=== PATIENT | female | born 1935 | race Caucasian/White ===

== ENCOUNTER 2016-03-14 16:32 | Emergency (ER) | payer OTHER, MEDICARE ==
[~2016-03-14] VITALS: Ht 162.6 cm; Wt 95.4 kg
[~2016-03-14 16:32] MED LIST: ALUMSUS2 PO; CALCTAB5 PO; CLOP1TAB15 PO; CRS/10 PO; GLIP-199 PO; INSDGI SC; LEVO50TA6 PO; METO50TA7 PO; NVLGI SC; OXYC5TAB PO; PHENERGAN 25 MG/ML IM; TRAM-10 PO
--- NOTE | 2016-03-14 16:50 | EMERGENCY ROOM VISIT NOTE ---
History Report prepared by Jak: Rosanna Rebolledo Under the Supervision of: Dr. Lynda Whitaker M.D. First contact with patient: 16:33 Chief Complaint: BACK PAIN Stated Complaint: BACK PAIN History of Present Illness The patient is a 80 year old female who presents to the Emergency Room with complaints of worsening back pain for the past week. She states that her pain started in her left leg and quickly moved up into the left side of her back. She describes her pain as spasms. Five days ago she saw her PCP, Dr. Contreras, for her symptoms. He prescribed Tramadol, Flexeril, and Prednisone. She states that these medications have not been helping. She has been using a walker for the past few days to help her get around because it has become more difficult to move. Movement exacerbates her pain. She notes some shortness of breath with exertion. The patient was brought to the ED by ambulance. She received morphine en route which helped to alleviate some of her pain. She denies any urinary incontinence or cough. She denies any recent injury, trauma, or heavy lifting. Source of History: patient, EMS Onset: 1 week ago Position: back (left sided) Quality: other (spasms) Timing: worsening Modifying Factors (Worsening): movement Modifying Factors (Relieving): narcotics (morphine) Associated Symptoms: + SOB, No cough, No urinary symptoms Review of Systems See HPI for pertinent positives & negatives. A total of 10 systems reviewed and were otherwise negative. Past Medical & Surgical Medical Problems: (1) Atrial Fibrillation (2) Congestive Heart Failure Nos (3) Heart Disease Nos (4) Hypertension Nos (5) Hypothyroidism Nos (6) Nausea With Vomiting (7) Syncope And Collapse Family History Blood clots Diabetes mellitus Hypertension Kidney stones Social History Smoking Status: Unknown if Ever Smoked Marital Status: Occupation Status: unemployed Current/Historical Medications Scheduled Bimatoprost (Lumigan), 1 DROP OPB HS Cholecalciferol (Vitamin D3), 2,000 INTER.UNIT PO DAILY Clopidogrel Bisulfate (Clopidogrel), 75 MG PO DAILY Glipizide (Glipizide ER), 10 MG PO BIDM Insulin Aspart (Novolog), 1 DOSE SC BID Insulin Human NPH (Novolin N), 15-20 UNITS SC HS Levothyroxine Sodium (Levothyroxine Sodium), 50 MCG PO DAILY Metoprolol Succinate (Toprol Xl), 50 MG PO DAILY Prednisone (Prednisone), 10 MG PO UD Rosuvastatin Calcium (Rosuvastatin Calcium), 10 MG PO HS Scheduled PRN Acetaminophen (Tylenol), 500 MG PO UD PRN for Pain Cyclobenzaprine HCl (Cyclobenzaprine HCl), 5 MG PO TID PRN for Muscle Spasm Nitroglycerin (Nitrostat), 0.4 MG UT UD PRN for Chest Pain Tramadol HCl (Tramadol HCl), 50 MG PO TID PRN for Pain Allergies Coded Allergies: Iodine (Verified Allergy, Intermediate, ITCHING, 04/16/09) Lisinopril (Verified Allergy, Unknown, 04/16/09) Ondansetron (Verified Allergy, Unknown, "vomiting", 08/12/13) Sulfa Antibiotics (Verified Allergy, Unknown, ITCHING, 08/12/15) MD STATES LISINOPRIL & IODINE ALLERGIES, ER STATES IODINE & SULFA--PT TOO LETHARGIC TO VERIFY Physical Exam Vital Signs Date Time Temp Pulse Resp B/P Pulse Ox O2 Delivery O2 Flow Rate FiO2 03/14/16 22:27 72 16 141/80 94 Room Air 03/14/16 19:22 59 18 137/64 93 Room Air 03/14/16 18:07 62 03/14/16 17:02 37.4 75 18 151/84 94 Room Air Physical Exam Vital signs reviewed. General: Well-appearing 80 year old female, in no significant distress. HEENT: No scleral icterus, PERRLA, neck supple. Atraumatic. Cardiovascular: Regular rate and rhythm, no extra sounds. Pulmonary: Clear to auscultation bilaterally, normal work of breathing. Abdomen: Soft, nontender, nondistended, positive bowel sounds. Musculoskeletal: Atraumatic, no peripheral edema. Tender to palpation of the left upper back. No crepitus or ecchymosis appreciated. Neurologic: Patient awake alert and oriented x 3, full strength in all 4 extremities. Cranial nerves 2 through 12 grossly intact. Skin: Warm, dry, no rash Medical Decision & Procedures ER Provider Diagnostic Interpretation: Radiology results as stated below per my review and radiologist interpretation: THORACIC SPINE 3 VIEWS HISTORY: Left back pain COMPARISON: Abdomen and pelvis CT 08/12/2015. Chest CT 01/27/2015.. FINDINGS: Old moderate compression deformity at T7, T12 and L1. These remain unchanged. No new compression fractures identified. Paraspinal soft tissues are unremarkable. The bones are osteopenic. No subluxation. IMPRESSION: No change in the old compression fractures at T7, T12, and L1. No acute fractures or subluxation within the thoracic spine. Electronically signed by: Ridge Cabrera M.D. 03/14/2016 7:21 PM CHEST 1 VW FRONT-NOT PORTABLE HISTORY: left back pain COMPARISON: Chest 08/12/2015. FINDINGS: The heart remains enlarged. There is mild central pulmonary vascular congestion without overt edema. No pneumothorax. No pleural effusions. No new focal lung consolidations. There are poststernotomy changes and a mitral valve ring. IMPRESSION: Cardiomegaly with mild central pulmonary vascular congestion. Electronically signed by: Ridge Cabrera M.D. 03/14/2016 7:37 PM Laboratory Results 03/14/16 17:35 Red Blood Count 4.95, Mean Corpuscular Volume 89.9, Mean Corpuscular Hemoglobin 30.3, Mean Corpuscular Hemoglobin Concent 33.7, Mean Platelet Volume 9.9, Neutrophils (%) (Auto) 91.6, Lymphocytes (%) (Auto) 6.0, Monocytes (%) (Auto) 2.2, Eosinophils (%) (Auto) 0.0, Basophils (%) (Auto) 0.0, Neutrophils # (Auto) 4.62, Lymphocytes # (Auto) 0.30, Monocytes # (Auto) 0.11, Eosinophils # (Auto) 0.00, Basophils # (Auto) 0.00 03/14/16 17:35 Test 03/14/16 17:35 03/14/16 19:19 White Blood Count 5.04 K/uL (4.8-10.8) Red Blood Count 4.95 M/uL (4.2-5.4) Hemoglobin 15.0 g/dL (12.0-16.0) Hematocrit 44.5 % (37-47) Mean Corpuscular Volume 89.9 fL (80-100) Mean Corpuscular Hemoglobin 30.3 pg (25-34) Mean Corpuscular Hemoglobin Concent 33.7 g/dl (32-36) Platelet Count 247 K/uL (130-400) Mean Platelet Volume 9.9 fL (7.4-10.4) Neutrophils (%) (Auto) 91.6 % Lymphocytes (%) (Auto) 6.0 % Monocytes (%) (Auto) 2.2 % Eosinophils (%) (Auto) 0.0 % Basophils (%) (Auto) 0.0 % Neutrophils # (Auto) 4.62 K/uL (1.4-6.5) Lymphocytes # (Auto) 0.30 K/uL (1.2-3.4) Monocytes # (Auto) 0.11 K/uL (0.11-0.59) Eosinophils # (Auto) 0.00 K/uL (0-0.5) Basophils # (Auto) 0.00 K/uL (0-0.2) RDW Standard Deviation 46.7 fL (36.4-46.3) RDW Coefficient of Variation 14.3 % (11.5-14.5) Immature Granulocyte % (Auto) 0.2 % Immature Granulocyte # (Auto) 0.01 K/uL (0.00-0.02) Anion Gap 11.0 mmol/L (3-11) Est Creatinine Clear Calc Drug Dose 40.5 ml/min Estimated GFR () 48.7 Estimated GFR (Non- 42.1 BUN/Creatinine Ratio 23.1 (10-20) Calcium Level 9.1 mg/dl (8.5-10.1) Total Bilirubin 0.5 mg/dl (0.2-1) Direct Bilirubin 0.2 mg/dl (0-0.2) Aspartate Amino Transf (AST/SGOT) 36 U/L (15-37) Alanine Aminotransferase (ALT/SGPT) 24 U/L (12-78) Alkaline Phosphatase 87 U/L (45-117) Total Creatine Kinase 43 U/L (26-192) Creatine Kinase MB 1.1 ng/ml (0.5-3.6) Creatine Kinase MB Ratio 2.6 (0-3.0) Troponin I < 0.015 ng/ml (0-0.045) Total Protein 7.4 gm/dl (6.4-8.2) Albumin 3.0 gm/dl (3.4-5.0) Lipase 156 U/L (73-393) Urine Color YELLOW Urine Appearance CLEAR (CLEAR) Urine pH 5.0 (4.5-7.5) Urine Specific [place] 1.024 (1.000-1.030) Urine Protein NEG (NEG) Urine Glucose (UA) NEG (NEG) Urine Ketones NEG (NEG) Urine Occult Blood NEG (NEG) Urine Nitrite NEG (NEG) Urine Bilirubin NEG (NEG) Urine Urobilinogen NEG (NEG) Urine Leukocyte Esterase NEG (NEG) Laboratory results per my review. ECG Indication: back/shoulder pain Rate (beats per minute): 65 Rhythm: normal sinus Findings: T-wave inversion (Anterolateral), no ectopy Comparison ECG Date: 08/12/15 Change: T-wave inversions in the inferior leads have resolved, ST abnormalities in the anterolateral leads have resolved, T-wave inversions in the anterolateral leads persists. ED Course 163: Past medical records reviewed. The patient was evaluated in room A4B. A complete history and physical examination was performed. 1926: I reassessed the patient at this time. She is feeling better and resting comfortably. I discussed the results and treatment plan with the patient. I answered all pertaining questions that she had. She expressed understanding and verbalized agreement. The patient will be transferred to a rehab facility for further management. 2129: The patient has been accepted to [facility] for further management. Medical Decision Differential diagnoses includes muscular strain, pneumonia, PE, fractured rib, pleural effusion, thoracic radiculopathy. This pt was evaluated and appeared to be in no distress. IV access was obtained and lab work was drawn. Pt was placed on the director of cardiac cath lab. XR of thoracic spine reveals chronic compression fractures. CXR is c/w vascular congestion, although pt was unable to sit up for films. Pt was felt in need of rehab for mobility and was referred to [facility] and accepted. Pt was transferred for further care. Impression Primary Impression: Thoracic compression fracture Additional Impression: Upper back pain on left side Scribe Attestation The scribe's documentation has been prepared under my direction and personally reviewed by me in its entirety. I confirm that the note above accurately reflects all work, treatment, procedures, and medical decision making performed by me. Departure Information Dispostion Rehab Inpatient Facility Referrals Mago Contreras M.D. (MEDICAL) (PCP) Patient Instructions A Signature Page, My [facility]
[2016-03-14 17:02] VITALS: TEMP 37.4; Ht 162.6 cm; Wt 95.4 kg
[2016-03-14 17:51] LABS: COMPLETE YES; HEMATOCRIT 44.5 % (37-47); IG% 0.2 %; MEAN CELL VOLUME 89.9 fL (80-100); MEAN CORPUSCULAR HEMOGLOBIN 30.3 pg (25-34); MEAN CORPUSCULAR HGB CONC 33.7 g/dl (32-36); MEAN PLATELET VOLUME 9.9 fL (7.4-10.4); MONO % 2.2 %; NEUT % 91.6 %; PLATELET COUNT 247 K/uL (130-400); RED BLOOD COUNT 4.95 M/uL (4.2-5.4); WHITE BLOOD COUNT 5.04 K/uL (4.8-10.8)
[2016-03-14] MEDS ORDERED: PRED10TA PO (17:57)
[2016-03-14] MEDS ORDERED: NVLG SC (17:57)
[2016-03-14] MEDS ORDERED: ROSU10TA35 PO (17:57)
[2016-03-14] MEDS ORDERED: GLCSR10 PO (17:57)
[2016-03-14] MEDS ORDERED: PLV75 PO (17:57)
[2016-03-14] MEDS ORDERED: FLX/5 PO (17:57)
[2016-03-14] MEDS ORDERED: METO-217 PO (17:57)
[2016-03-14] MEDS ORDERED: NVLNI SC (17:57)
[2016-03-14] MEDS ORDERED: ULT50 PO (18:01)
[2016-03-14] MEDS ORDERED: ACET-1256 PO (18:01)
[2016-03-14] MEDS ORDERED: CHOL2000 PO (18:01)
[2016-03-14 18:10] LABS: ALT/SGPT 24 U/L (12-78); BLOOD UREA NITROGEN 28 mg/dl (7-18); BUN/CREATININE RATIO 23.1 (10-20); CALCIUM 9.1 mg/dl (8.5-10.1); CARBON DIOXIDE 22 mmol/L (21-32); CHLORIDE 109 mmol/L (98-107); GLUCOSE 162 mg/dl (70-99); POTASSIUM 4.6 mmol/L (3.5-5.1); SODIUM 142 mmol/L (136-145)
[2016-03-14 18:15] LABS: ALKALINE PHOSPHATASE 87 U/L (45-117); AST/SGOT 36 U/L (15-37); CKMB/CK RATIO 2.6 (0-3.0)
[2016-03-14] MEDS ORDERED: BIMA0.01 OPB (19:07)
[2016-03-14] MEDS ORDERED: NITR0.4S UT (19:11)
--- NOTE | 2016-03-14 19:23 | DIAGNOSTIC IMAGING REPORT ---
THORACIC SPINE 3 VIEWS HISTORY: Left back pain COMPARISON: Abdomen and pelvis CT 08/12/2015. Chest CT 01/27/2015.. FINDINGS: Old moderate compression deformity at T7, T12 and L1. These remain unchanged. No new compression fractures identified. Paraspinal soft tissues are unremarkable. The bones are osteopenic. No subluxation. IMPRESSION: No change in the old compression fractures at T7, T12, and L1. No acute fractures or subluxation within the thoracic spine. Electronically signed by: Ridge Cabrera M.D. 03/14/2016 7:21 PM
--- NOTE | 2016-03-14 19:38 | DIAGNOSTIC IMAGING REPORT ---
CHEST 1 VW FRONT-NOT PORTABLE HISTORY: left back pain COMPARISON: Chest 08/12/2015. FINDINGS: The heart remains enlarged. There is mild central pulmonary vascular congestion without overt edema. No pneumothorax. No pleural effusions. No new focal lung consolidations. There are poststernotomy changes and a mitral valve ring. IMPRESSION: Cardiomegaly with mild central pulmonary vascular congestion. Electronically signed by: Ridge Cabrera M.D. 03/14/2016 7:37 PM
[2016-03-14 19:43] LABS: URINE APPEARANCE CLEAR (CLEAR); URINE BILIRUBIN NEG (NEG); URINE COLOR YELLOW; URINE NITRITE NEG (NEG); URINE SPECIFIC GRAVITY 1.024 (1.000-1.030); UROBILINOGEN NEG (NEG); ZZURINE CULT IF INDIC CATH NO
[2016-03-14 19:57] LABS: MANUAL MICROSCOPIC REQUIRED? NO; REVIEW REQ? NO
[2016-03-14 22:27] VITALS: BP 141/80; PULSE 72; O2SAT 94
[2016-05-09] MEDS ORDERED: OXYC-57 PO (10:13)
[2016-05-09] MEDS ORDERED: CMD5 PO (12:02)
[2016-05-10] MEDS ORDERED: PANT40TA PO (12:55)
[2016-05-10] MEDS ORDERED: SENN8.6T7 PO (13:15)
== END 2016-03-14 23:00 ==
LOC: EDBD 16:32 → C.EDA 16:33
DX: M48.54XA Collapsed vertebra, not elsewhere classified, thoracic region, initial encounter for fracture (principal); I48.91 Unspecified atrial fibrillation; I50.9 Heart failure, unspecified; I10 Essential (primary) hypertension; E03.9 Hypothyroidism, unspecified; Z84.1 Family history of disorders of kidney and ureter; Z83.3 Family history of diabetes mellitus; Z79.4 Long term (current) use of insulin

== ENCOUNTER 2016-05-04 08:26 | Inpatient (IN) | payer OTHER, MEDICARE ==
[~2016-05-04] VITALS: Ht 157.5 cm; Wt 88.6 kg
[2016-05-04] VITALS (12 sets, daily range): BP systolic 95–140; BP diastolic 51–81; PULSE 76–108; TEMP 36.7–36.9; O2SAT 85–100; Ht 157.5 cm; Wt 88.6 kg
[~2016-05-04 08:26] MED LIST changes: +ACET-1256 PO; -ALUMSUS2 PO; +BIMA0.01 OPB; -CALCTAB5 PO; +CEFAZOLIN 2000 MG/60 ML D5W IV SCH; +CHOL2000 PO; -CLOP1TAB15 PO; -CRS/10 PO; +FLX/5 PO; +GLCSR10 PO; -GLIP-199 PO; -INSDGI SC; +METO-217 PO; -METO50TA7 PO; +NITR0.4S UT; +NVLG SC; -NVLGI SC; +NVLNI SC; -OXYC5TAB PO; -PHENERGAN 25 MG/ML IM; +PLV75 PO; +PRED10TA PO; +ROSU10TA24 PO; -TRAM-10 PO; +ULT50 PO
[2016-05-04] MEDS ORDERED: DILTIAZEM BOLUS / DRIP IV STA ×2 (08:32→13:50)
[2016-05-04] MEDS ORDERED: NYSTATIN POWDER 15GM BTL EXT STA (08:32)
[2016-05-04] MEDS ORDERED: MoRPHine SULFATE 10 MG/ML CARP/VIAL IV STA (08:32)
[2016-05-04] MEDS ORDERED: ONDANSETRON INJ 2 MG/ML 2 ML VIAL IV STA (08:32)
[2016-05-04] MEDS ORDERED: DILTIAZEM HCL 5 MG/ML 5 ML VIAL IV STA ×2 (08:32)
[2016-05-04] MEDS ORDERED: SODIUM CHLORIDE 0.9% 500ML 500 ML IV STA (08:32)
[2016-05-04] MEDS ORDERED: HYDROmorphone INJ 1 MG/ML SYR ONE (08:41)
[2016-05-04] MEDS ORDERED: OPTIRAY 320 IV PRN (08:45)
[2016-05-04] MEDS ORDERED: HYDROmorphone INJ 1 MG/ML SYR IM STA ×2 (08:48→08:56)
[2016-05-04] MEDS ORDERED: DILTIAZEM HCL INJ 125 MG in DEXTROSE 5% 100ML IV PRN ×2 (09:00→14:15)
[2016-05-04] MEDS ORDERED: NURSING VERBAL MED ORDER ONE ×2 (09:00→15:15)
[2016-05-04 09:08] LABS: ISTAT CREATININE 1.1 mg/dl (0.6-1.3); ISTAT HEMOGLOBIN 18.4 g/dl (12.0-16.0); ISTAT IONIZED CALCIUM 1.09 mmol/l (1.12-1.32)
[2016-05-04] MEDS ORDERED: HEPARIN SOD 5000 UNIT/0.5 ML CARP ONE (09:28)
[2016-05-04] MEDS ORDERED: HEPARIN IV BOLUS 8,000 UNIT in SYRINGE 0 ML IV SCH (09:30)
[2016-05-04] MEDS ORDERED: AMIODARONE 360MG / 200ML D5W ONE (09:31)
--- NOTE | 2016-05-04 09:35 | EMERGENCY ROOM VISIT NOTE ---
History Report prepared by Jak: Jose Ferguson Under the Supervision of: Dr. Jose A Lagos M.D. First contact with patient: 08:28 Stated Complaint: LF LEG PAIN/NUMBNESS History of Present Illness The patient is an 80 year old female who presents to the Emergency Room with complaints of persistent left leg pain that started this morning. The pain started as a cramping sensation, which is currently rated 10/10 in severity. The patient is also experiencing numbness and cannot use her leg. The patient came to the ED via ambulance from [place]. Per nursing staff, patient arrived in atrial fibrillation with RVR, and her left leg was cold and pulseless upon arrival. The patient has not taken her Plavix for the past several days because she has been feeling sick. The patient has a history of open heart surgery. Source of History: patient Onset: this morning Position: leg (left) Symptom Intensity: 10/10 Quality: cramping Timing: other (persistent) Associated Symptoms: + numbness Review of Systems See HPI for pertinent positives & negatives. A total of 10 systems reviewed and were otherwise negative. 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 (4) Status post partial colectomy (5) Status post partial mastectomy Family History Blood clots Diabetes mellitus Hypertension Kidney stones Social History Smoking Status: Former Smoker Marital Status: Occupation Status: unemployed Current/Historical Medications Scheduled Bimatoprost (Lumigan), 1 DROP OPB HS Cholecalciferol (Vitamin D3), 2,000 INTER.UNIT PO DAILY Clopidogrel Bisulfate (Clopidogrel), 75 MG PO DAILY Glipizide (Glipizide ER), 10 MG PO BIDM Insulin Aspart (Novolog), 1 DOSE SC BID Insulin Human NPH (Novolin N), 15-20 UNITS SC HS Levothyroxine Sodium (Levothyroxine Sodium), 50 MCG PO DAILY Metoprolol Succinate (Toprol Xl), 50 MG PO DAILY Rosuvastatin Calcium (Rosuvastatin Calcium), 10 MG PO HS Scheduled PRN Nitroglycerin (Nitrostat), 0.4 MG UT UD PRN for Chest Pain Allergies Coded Allergies: Iodine (Verified Allergy, Intermediate, ITCHING, 04/16/09) Lisinopril (Verified Allergy, Unknown, 04/16/09) Sulfa Antibiotics (Verified Allergy, Unknown, ITCHING, 08/12/15) MD STATES LISINOPRIL & IODINE ALLERGIES, ER STATES IODINE & SULFA--PT TOO LETHARGIC TO VERIFY Physical Exam Vital Signs Date Time Temp Pulse Resp B/P Pulse Ox O2 Delivery O2 Flow Rate FiO2 05/04/16 10:03 146 103/73 05/04/16 10:02 146 103/73 05/04/16 09:43 150 05/04/16 08:52 Nasal Cannula 2.0 05/04/16 08:43 94 Room Air 05/04/16 08:36 36.8 146 20 191/99 94 Room Air Physical Exam GENERAL: Patient is a healthy-appearing well-nourished HEAD: Normocephalic atraumatic EYES: Ocular movements intact pupils equal and react to light OROPHARYNX mucous membranes are moist no exudates present no erythema or edema present NECK: Supple no nuchal rigidity CHEST: Good equal expansion LUNGS: Clear and equal to auscultation CARDIAC: Normal S1 and S2 ABDOMEN: Soft nontender no guarding BACK: No CVA tenderness EXTREMITIES: Left lower extremity is pulseless. Cannot Doppler a pulse. Extremely painful to touch, Mottled all the way up to the hip. NEURO: Patient is following commands is answering questions appropriately. Alert and oriented x3 Cranial Nerves 2-12 grossly intact Medical Decision & Procedures ER Provider Diagnostic Interpretation: X-ray results as stated below per interpretation by me and the radiologist: CHEST ONE VIEW PORTABLE CLINICAL HISTORY: central line dyspnea COMPARISON STUDY: 03/14/2016 FINDINGS: Interval placement of a left internal jugular catheter with the tip in the superior vena cava. No evidence pneumothorax. Mild stable cardiomegaly. Prior median sternotomy. IMPRESSION: Central catheter in the superior vena cava. No evidence pneumothorax. Moderate stable cardiomegaly. Electronically signed by: Moe Rendon M.D. 05/04/2016 10:07 AM Dictated Date/Time: 05/04/2016 10:06 AM Laboratory Results Test 05/04/16 08:38 05/04/16 09:30 Bedside Hemoglobin 18.4 g/dl (12.0-16.0) Bedside Hematocrit 54 % (37-47) Bedside Sodium 137 mEq/L (135-144) Bedside Potassium 4.3 mEq/L (3.3-5.0) Bedside Chloride 101 mEq/L (101-112) Bedside Total CO2 18 mEq/l (24-31) Bedside Blood Urea Nitrogen 19 mg/dl (7-18) Bedside Creatinine 1.1 mg/dl (0.6-1.3) Bedside Glucose (other) 336 mg/dl (70-99) Bedside Ionized Calcium (Tray) 1.09 mmol/l (1.12-1.32) Total Bilirubin 0.9 mg/dl (0.2-1) Aspartate Amino Transf (AST/SGOT) 10 U/L (15-37) Alanine Aminotransferase (ALT/SGPT) 9 U/L (12-78) Alkaline Phosphatase 98 U/L (45-117) Total Creatine Kinase 40 U/L (26-192) Creatine Kinase MB 1.6 ng/ml (0.5-3.6) Creatine Kinase MB Ratio 4.0 (0-3.0) Total Protein 7.6 gm/dl (6.4-8.2) Albumin 3.1 gm/dl (3.4-5.0) Globulin 4.5 gm/dl (2.5-4.0) Albumin/Globulin Ratio 0.7 (0.9-2) Beta-Hydroxybutyric Acid 27.27 mg/dL (0.2-2.81) Labs reviewed by ED physician. Medications Administered Medications (Trade) Dose Ordered Sig/Fina Route Start Time Stop Time Status Last Admin Dose Admin Ondansetron HCl (Zofran Inj) 4 mg NOW STAT IV 05/04/16 08:32 05/04/16 08:39 DC 05/04/16 14:00 4 MG Diltiazem HCl (Cardizem Inj) 20 mg NOW STAT IV 05/04/16 08:32 05/04/16 08:39 DC 05/04/16 09:49 20 MG Hydromorphone HCl 1 mg 1 mg STK-MED ONCE .ROUTE 05/04/16 08:41 05/04/16 08:44 DC 05/04/16 08:48 1 MG Diltiazem HCl/ Dextrose (Cardizem Inj/D5 100ml) 125 ml @ 0 mls/hr Q0M PRN IV 05/04/16 09:00 05/04/16 13:51 DC 05/04/16 09:37 20 MLS/HR Heparin Sodium (Porcine) 56233 unit 10,000 unit STK-MED ONCE .ROUTE 05/04/16 09:28 05/04/16 09:30 DC 05/04/16 09:35 8,000 UNIT Cefazolin Sodium (Ancef 2000mg/60 ml D5W) 60 ml @ 100 mls/hr PREOP IV 05/04/16 06:00 05/04/16 18:00 DC 05/04/16 10:01 100 MLS/HR Gelatin (Surgifoam Sponge 100 (LARGE)) 2 ea STK-MED ONCE .ROUTE 05/04/16 09:52 05/04/16 09:54 DC 05/04/16 11:30 2 EA Thrombin (Recothrom Kit) 10,000 units STK-MED ONCE .ROUTE 05/04/16 09:53 05/04/16 09:55 DC 05/04/16 11:30 10,000 UNITS Cefazolin Sodium (Ancef Inj) 1,000 mg STK-MED ONCE .ROUTE 05/04/16 09:53 05/04/16 09:55 DC 05/04/16 11:30 1,000 MG Heparin Sodium (Porcine) (Heparin Iv Bolus) 10,000 unit STK-MED ONCE .ROUTE 05/04/16 09:53 05/04/16 09:55 DC 05/04/16 11:30 5,000 UNIT Procedure Central Venous Catheter Indication: access. Catheter type: arrow triple lumen. Location: left jugular. Verbal consent was obtained after the risks and benefits were explained, including but not limited to pneumothorax, hemothorax, vessel injury, bleeding, scarring, infection, pain, and bone/joint/nerve damage. At this time, the risks of the procedure are less than the risks of NOT performing the procedure. A time out was taken and the correct patient and site identified. The patient was placed in the supine position and the skin was prepped in the standard fashion with chlorhexidine and full sterile drapes applied. The proper landmarks were identified with ultrasound, anesthetized with 1% lidocaine without epinephrine, and the needle was inserted through the skin in the standard fashion. The needle was carefully advanced into blood vessel lumen under ultrasound guidance. The guidewire was placed uneventfully. The vessel is dilated and the catheter was placed. It was sutured into position. There was good blood return from all ports. The patient tolerated the procedure well and there were no complications. Post procedure x-ray was normal. ECG Indication: weakness Rate (beats per minute): 143 Rhythm: atrial fibrillation (RVR) Findings: PVC, no acute ischemic change, other (RVR) ED Course 0830: Past medical records reviewed. The patient was evaluated in room B4b. A complete history and physical examination was performed. 0832: Cardizem 30 mg IV, Cardizem 20 mg IV, Cardizem Bolus/Drip 1 ea IV, NSS 500 ml @ 999 mls/hr, Zofran 4 mg IV, Morphine Sulfate 6 mg IV, Nystatin 1 application EXT. 0845: Spoke with Isabela Degroot PA-C, [facility] Vascular Surgery. They will be in the see the patient. 0848: Heparin Sodium / Dextrose 1 ea, Dilaudid 1 mg IM. 0850: Central line placed. Please see procedural note above. 0900: Cardizem 125 mg / Dextrose 125 ml @ 0 mls/hr. 0905: Dr. Cook, [facility] Vascular Surgeon, is here to see the patient. Medical Decision Differential diagnosis: Etiologies such as metabolic, infection, hypo/hyperglycemia, electrolyte abnormalities, cardiac sources, intracerebral event, toxicologic, neurologic, as well as others were entertained. This is an 80-year-old female who presents emergency Department with a cold pulseless leg. The patient appears to be in A. fib with RVR and has not been taking her Plavix for the past several days. Nurses were unable to obtain an IV therefore a central line was placed in the emergency department. This was done as above. She was placed on a Cardizem drip with bolus. I did discuss the case with Dr. Cook who brought the patient to the operating room. Family was in agreement with the treatment plan. Consults Time Called: 0840 Consulting Physician: Isabela Degroot PA-C, [facility] Vascular Surgery. Returned Call: [phone]: Spoke with Isabela Degroot PA-C, Vascular Surgery. They will be in the see the patient. Impression Primary Impression: Ischemic leg Additional Impression: Atrial fibrillation with RVR Critical Care I have personally spent greater than 90 minutes of critical care time in the direct management of this patient. This includes bedside care, interpretation of diagnostic studies, and testing, discussion with consultants, patient, and family members, and other required patient management activities. This 90 minutes is in excess of all separately billable procedures. Scribe Attestation The scribe's documentation has been prepared under my direction and personally reviewed by me in its entirety. I confirm that the note above accurately reflects all work, treatment, procedures, and medical decision making performed by me. Departure Information Dispostion Being Evaluated By Surgeon Referrals Mago Contreras M.D. (MEDICAL) (PCP) Problem Qualifiers
--- NOTE | 2016-05-04 09:44 | History and Physical ---
History & Physical Date May 04, 2016. Chief Complaint Left leg pain History of Present Illness The patient is a 80 year old female who developed sudden onset left leg pain this morning. She claims her left leg is numb and can not move it. She has afib. She stopped plavix a few days ago due to not feeling well. No claudication prior to this. Vitals Vital Signs Past 12 Hours Date Time Temp Pulse Resp B/P Pulse Ox O2 Delivery O2 Flow Rate FiO2 05/04/16 08:52 Nasal Cannula 2.0 05/04/16 08:43 94 Room Air 05/04/16 08:36 36.8 146 20 191/99 94 Room Air Allergies Coded Allergies: Iodine (Verified Allergy, Intermediate, ITCHING, 04/16/09) Lisinopril (Verified Allergy, Unknown, 04/16/09) Sulfa Antibiotics (Verified Allergy, Unknown, ITCHING, 08/12/15) MD STATES LISINOPRIL & IODINE ALLERGIES, ER STATES IODINE & SULFA--PT TOO LETHARGIC TO VERIFY Ondansetron (Verified Adverse Reaction, Unknown, "vomiting", 05/04/16) Home Medications Scheduled Bimatoprost (Lumigan), 1 DROP OPB HS Cholecalciferol (Vitamin D3), 2,000 INTER.UNIT PO DAILY Clopidogrel Bisulfate (Clopidogrel), 75 MG PO DAILY Glipizide (Glipizide ER), 10 MG PO BIDM Insulin Aspart (Novolog), 1 DOSE SC BID Insulin Human NPH (Novolin N), 15-20 UNITS SC HS Levothyroxine Sodium (Levothyroxine Sodium), 50 MCG PO DAILY Metoprolol Succinate (Toprol Xl), 50 MG PO DAILY Prednisone (Prednisone), 10 MG PO UD Rosuvastatin Calcium (Rosuvastatin Calcium), 10 MG PO HS Scheduled PRN Acetaminophen (Tylenol), 500 MG PO UD PRN for Pain Cyclobenzaprine HCl (Cyclobenzaprine HCl), 5 MG PO TID PRN for Muscle Spasm Nitroglycerin (Nitrostat), 0.4 MG UT UD PRN for Chest Pain Tramadol HCl (Tramadol HCl), 50 MG PO TID PRN for Pain Problem List Medical Problems: (1) Atrial Fibrillation (2) Congestive Heart Failure Nos (3) Heart Disease Nos (4) Hypertension Nos (5) Hypothyroidism Nos (6) Nausea With Vomiting (7) Syncope And Collapse Surgical / Medical History Hx Cardiac Surgery: Yes (TRIPLE BYPASS PER PATIENT. ) Hx Abdominal Surgery: No Hx Cancer Surgery: Yes (L.BREAST LUMPECTOMY) Hx Thoracic Surgery: No Hx Orthopedic: No Hx Urinary Tract Surgery: No Past Medical/Surgical History: CABG, CHF, Heart Disease, Hypertension, Thyroid Disease Family History Blood clots Diabetes mellitus Hypertension Kidney stones Social History Smoking Status: Unknown if Ever Smoked Hx Tobacco Use In Past Year?: No Hx Alcohol Use - Type & Amnt: No Hx Substance Use -Type & Amnt: No Review of Systems Respiratory: No RAINEY, No PND, No cough, No cyanosis, No dyspnea, No hemoptysis, No orthopnea, No problem reported, No short of breath, No sputum production, No stridor, No wheezing Cardiovascular: No chest pain, No chest pressure, No chest tightness, No cyanosis, No diaphoresis, No edema, No intermittent claudication, No lightheadedness, No mumur, No orthopnea, No palpitations, No paroxysmal nocturnal dyspnea, No problem reported, No syncope Gastrointestinal: No abdominal pain, No anorexia, No appetite changes, No belching, No constipation, No diarrhea, No dysphagia, No flatulence, No food intolerance, No heartburn, No hematemesis, No hematochezia, No hemorrhoids, No indigestion, No nausea, No problem reported, No rectal bleeding, No stool changes, No vomiting Musculoskeletal: + problem reported (severe left leg pain) Neurologic: + problem reported (left leg numb and can not move) Psychiatric: No alcohol abuse, No anxiety, No auditory hallucinations, No depression, No drug abuse, No homicidal ideation, No mood changes, No problem reported, No suicidal ideation, No visual hallucinations Physical Exam Constitutional: General Apperance: heathly-appearing, well-nourished, well-developed Level of Distress: moderate distress Ambulation: limited ambulation Neck: supple Lungs: Auscultation: breath sounds normal Cardiovascular: Heart Auscultation: pertinent finding (afib with rapid rate) Peripheral Pulses: Femoral Pulse: normal on the left, normal on the right Posterior Tibialis Pulse: decreased on the right, absent on the left Dorsalis Pedis Pulse: decreased on the right, absent on the left Musculoskeletal: normal Extremities: Upper Right: no cyanosis, no edema, no varicosities, no palpable cord, no clubbing, no ulcers, no mottling Upper Left: no cyanosis, no edema, no varicosities, no palpable cord, no clubbing, no ulcers, no mottling Lower Left: mottling, pertinent finding (cold) Neurologic: Sensation: pertinent finding (left leg numb and motionless) Assessment and Plan Imp: Left leg embolism Afib with rapid response Plan: Recommend surgical intervention. I have discussed the risks options and benefits of the procedure with the patient. The patient understands the risks options and benefits and agrees to the procedure.
[2016-05-04] MEDS ORDERED: LIDOCAINE HCL 1% 20 ML VIAL ONE (09:52)
[2016-05-04] MEDS ORDERED: FENTANYL CITRATE INJ 50 MCG/1 ML 2 ML VIAL ONE (09:52)
[2016-05-04] MEDS ORDERED: GELATIN SPONGE SZ 100 ONE (09:52)
[2016-05-04] MEDS ORDERED: BUPIVACAINE/EPINEPHRINE 0.5% MPF 1:200,000 30 ML VIAL ONE (09:52)
[2016-05-04] MEDS ORDERED: THROMBIN 5000 UNITS KIT ONE (09:53)
[2016-05-04] MEDS ORDERED: PAPAVERINE HCL INJ 30 MG/ML 2 ML VIAL ONE (09:53)
[2016-05-04] MEDS ORDERED: HEPARIN SOD (PORCINE) 1000 UNIT/ML 10 ML VIAL ONE (09:53)
[2016-05-04] MEDS ORDERED: CEFAZOLIN SOD 1 GM VIAL ONE (09:53)
[2016-05-04 10:06] LABS: COMPLETE YES; EOS % 0.1 %; HEMATOCRIT 46.7 % (37-47); IG% 0.2 %; LYMPH ABS # 0.41 K/uL (1.2-3.4); MEAN CELL VOLUME 90.5 fL (80-100); MEAN CORPUSCULAR HEMOGLOBIN 31.6 pg (25-34); MEAN CORPUSCULAR HGB CONC 34.9 g/dl (32-36); MEAN PLATELET VOLUME 9.9 fL (7.4-10.4); MONO % 3.8 %; NEUT % 91.9 %; PLATELET COUNT 317 K/uL (130-400); RED BLOOD COUNT 5.16 M/uL (4.2-5.4); WHITE BLOOD COUNT 10.16 K/uL (4.8-10.8)
--- NOTE | 2016-05-04 10:08 | DIAGNOSTIC IMAGING REPORT ---
CHEST ONE VIEW PORTABLE CLINICAL HISTORY: central line dyspnea COMPARISON STUDY: 03/14/2016 FINDINGS: Interval placement of a left internal jugular catheter with the tip in the superior vena cava. No evidence pneumothorax. Mild stable cardiomegaly. Prior median sternotomy. IMPRESSION: Central catheter in the superior vena cava. No evidence pneumothorax. Moderate stable cardiomegaly. Electronically signed by: Moe Rendon M.D. 05/04/2016 10:07 AM Dictated Date/Time: 05/04/2016 10:06 AM
[2016-05-04 10:18] LABS: INR 1.2 (0.9-1.1); PARTIAL THROMBOPLASTIN RATIO 0.9; PROTHROMBIN TIME (PATIENT) 12.5 SECONDS (9.0-12.0)
[2016-05-04 10:30] LABS: ALT/SGPT 9 U/L (12-78); AST/SGOT 10 U/L (15-37); BLOOD UREA NITROGEN 18 mg/dl (7-18); BUN/CREATININE RATIO 13.1 (10-20); CALCIUM 9.3 mg/dl (8.5-10.1); CARBON DIOXIDE 19 mmol/L (21-32); CHLORIDE 102 mmol/L (98-107); GLUCOSE 319 mg/dl (70-99); SODIUM 137 mmol/L (136-145)
[2016-05-04] MEDS ORDERED: ATROPINE SULFATE 0.1 MG/ML 5ML SYR IV PRN (10:30)
[2016-05-04] MEDS ORDERED: EpHEDrine SULFATE INJ 50 MG/ML AMP IV PRN (10:30)
[2016-05-04] MEDS ORDERED: FENTANYL CITRATE INJ 50 MCG/1 ML 2 ML VIAL IV PRN (10:30)
[2016-05-04 10:36] LABS: ALB/GLOB RATIO 0.7 (0.9-2); ALKALINE PHOSPHATASE 98 U/L (45-117)
[2016-05-04 10:43] LABS: BETA-HYDROXYBUTYRATE 27.27 mg/dL (0.2-2.81)
[2016-05-04] MEDS ORDERED: NovoLIN-R INSULIN PER UNIT CHARGE ONE (11:05)
[2016-05-04] MEDS ORDERED: GLYCOPYRROLATE INJ 0.2 MG/ML VIAL ONE (11:12)
[2016-05-04] MEDS ORDERED: ROCURONIUM BROMIDE 10 MG/ML 5 ML VIAL ONE (11:12)
[2016-05-04] MEDS ORDERED: PROPOFOL IV EMULSION 10 MG/ML 20 ML VIAL IV ONE (11:12)
[2016-05-04] MEDS ORDERED: SUCCINYLCHOLINE CHLORIDE 20 MG/ML 10 ML VIAL IV ONE (11:12)
[2016-05-04] MEDS ORDERED: NEOSTIGMINE METHYLSULFATE 5 MG/5 ML SYR ONE (11:12)
[2016-05-04] MEDS ORDERED: LIDOCAINE HCL 2% 2 ML VIAL (20MG/ML) ONE (11:12)
[2016-05-04] MEDS ORDERED: METOPROLOL TARTRATE 1 MG/ML VIAL ONE (11:13)
[2016-05-04] MEDS ORDERED: PROMETHAZINE HCL INJ 12.5 MG in SODIUM CHLORIDE 0.9% 50ML 50 ML IV PRN (11:45)
[2016-05-04] MEDS ORDERED: GLUCOSE 10 TABS/TUBE PO PRN (11:45)
[2016-05-04] MEDS ORDERED: MoRPHine SULFATE 2 MG/ML CARP IV PRN ×2 (11:45→13:15)
[2016-05-04] MEDS ORDERED: DEXTROSE 50% 50 ML SYR IV PRN (11:45)
[2016-05-04] MEDS ORDERED: ACETAMINOPHEN 325 MG TAB PO PRN (11:45)
[2016-05-04] MEDS ORDERED: GLUCOSE 40% GEL 15 GM TUBE PO PRN (11:45)
[2016-05-04] MEDS ORDERED: OXYCODONE/ACETAMINOPHEN 5-325 TAB PO PRN (11:45)
[2016-05-04] MEDS ORDERED: GLUCAGON FOR INJ 1 MG VIAL SQ PRN (11:45)
[2016-05-04] MEDS ORDERED: NITROGLYCERIN 0.4 MG SL PER TAB CHARGE UT PRN (11:45)
--- NOTE | 2016-05-04 11:54 | [facility] Post Operative Brief Note ---
Immediate Operative Summary Operative Date May 04, 2016. Pre-Operative Diagnosis Embolism left leg Post-Operative Diagnosis Same Procedure(s) Performed Embolectomy left leg with patch angioplasty Surgeon alicia Ferry Operator Surgeon(s) none Estimated Blood Loss 100 Findings embolism at presser and shaper knitted goods bifurcation Specimens clot Anesthesia Gen Complication(s) None Disposition Recovery Room / PACU
--- NOTE | 2016-05-04 12:11 | OPERATIVE REPORT ---
DATE OF OPERATION: 05/04/2016 PREOPERATIVE DIAGNOSIS: Embolism left leg. POSTOPERATIVE DIAGNOSIS: Same. PROCEDURE: Embolectomy, left lower extremity with patch angioplasty. SURGEON: Dr. Cook. GUARD IMMIGRATION: None. ANESTHETIC: General endotracheal. PROCEDURE INDICATIONS: The patient is an 80-year-old female who has a history of atrial fibrillation. She developed sudden onset of left leg pain, paralysis and paresthesias this morning. She was seen in Emergency Room and found to have no flow to her leg was a mottled leg. Emergency surgery and possible intervention was recommended. She understood the risks, options, benefits and agreed to have this procedure. The patient was taken to the operating room and placed in supine position. After the groin was prepped and draped in a sterile manner an oblique incision was made below an area of redness from apparently a yeast infection in the folds of her skin. The incision was carried down through the deeper layers until the superficial femoral artery was identified. Dissection was carried upward to where the common femoral artery was identified. There was a good pulse in the common femoral but no pulse at the bifurcation. The patient had been heparinized prior to surgery. The common femoral was then clamped. Longitudinal arteriotomy was started on the distal common femoral artery and extended along the superficial femoral artery origin which had a fair amount of plaque. There was a clot seen right at the bifurcation. This was expressed. A #3 Kellen catheter was then passed down the leg. It went all the way to the foot. No further clot was removed. The same thing was done with the profunda and no further clot was noted. Using the bovine patch the arteriotomy was closed in the usual fashion using running 6-0 Prolene suture. Prior to completing the closure, backbleeding and forward bleeding was allowed to occur and the final few sutures were placed and securely tied. Clamps were then removed. Excellent flow was seen through this area. Adequate hemostasis was then noted. The wound was then closed in the usual fashion using running 2-0 Vicryl suture for the femoral sheath, 3-0 Vicryl for the subcutaneous layer and raudel for the skin. Sterile dressings were applied to the wound. The patient left the operating room in satisfactory condition and tolerated the procedure well. Heart rate which started at 150s was somewhat slower in the 120s but still has a rapid Afib. She will be transported to the Intensive Care Unit from the recovery room. I attest to the content of the Intraoperative Record and any orders documented therein. Any exceptions are noted below. [id number]
[2016-05-04 12:24] LABS: BASO % 0.1 %; BASO ABS # 0.01 K/uL (0-0.2); COMPLETE YES; HEMATOCRIT 42.1 % (37-47); IG% 0.2 %; LYMPH % 5.7 %; LYMPH ABS # 0.77 K/uL (1.2-3.4); MEAN CELL VOLUME 88.8 fL (80-100); MEAN CORPUSCULAR HEMOGLOBIN 30.8 pg (25-34); MEAN CORPUSCULAR HGB CONC 34.7 g/dl (32-36); MEAN PLATELET VOLUME 9.3 fL (7.4-10.4); MONO % 5.9 %; NEUT % 88.1 %; PLATELET COUNT 290 K/uL (130-400); RED BLOOD COUNT 4.74 M/uL (4.2-5.4); WHITE BLOOD COUNT 13.57 K/uL (4.8-10.8)
[2016-05-04 12:43] LABS: BLOOD UREA NITROGEN 19 mg/dl (7-18); BUN/CREATININE RATIO 13.2 (10-20); CALCIUM 8.4 mg/dl (8.5-10.1); CARBON DIOXIDE 19 mmol/L (21-32); CHLORIDE 102 mmol/L (98-107); GLUCOSE 259 mg/dl (70-99); POTASSIUM 4.3 mmol/L (3.5-5.1); SODIUM 135 mmol/L (136-145)
--- NOTE | 2016-05-04 12:44 | Anesthesiology Progress Note ---
Anesthesia Post Op Note Date & Time May 04, 2016 at 12:44 Vital Signs Pain Intensity: 0 Vital Signs Past 12 Hours Date Time Temp Pulse Resp B/P Pulse Ox O2 Delivery O2 Flow Rate FiO2 05/04/16 12:25 36.8 114 16 119/86 100 Nasal Cannula 2 05/04/16 12:15 113 16 125/84 100 Nasal Cannula 2 05/04/16 12:06 117 16 132/89 99 Mask 10 05/04/16 11:59 37.1 108 16 146/89 99 Mask 10 05/04/16 10:03 146 103/73 05/04/16 10:02 146 103/73 05/04/16 09:43 150 05/04/16 08:52 Nasal Cannula 2.0 05/04/16 08:43 94 Room Air 05/04/16 08:36 36.8 146 20 191/99 94 Room Air Notes Mental Status: alert / awake / arousable, participated in evaluation Pt Amnestic to Procedure: Yes Nausea / Vomiting: adequately controlled Pain: adequately controlled Airway Patency, RR, SpO2: stable & adequate BP & HR: stable & adequate Hydration State: stable & adequate Anesthetic Complications: no major complications apparent
[2016-05-04] MEDS ORDERED: MoRPHine SULFATE 4 MG/ML 1 ML CARP\\VIAL IV PRN ×2 (13:15→13:30)
[2016-05-04] MEDS: CEFAZOLIN IV 2,000 MG in DEXTROSE 5% 50ML 50 ML IV SCH ×2 (13:45→21:21)
[2016-05-04] MEDS ORDERED: ONDANSETRON INJ 2 MG/ML 2 ML VIAL ONE (13:53)
[2016-05-04] MEDS ORDERED: D5W AND 1/2NSS 1,000 ML IV SCH (14:00)
[2016-05-04] MEDS ORDERED: HEPARIN IV BOLUS 5,000 UNIT in SYRINGE 0 ML IV ONE (14:30)
[2016-05-04] MEDS: MAGNESIUM SULFATE 1GM / D5W 1 GM in PREMIXED IN D5W 100 ML IV SCH ×2 (14:54→16:29)
[2016-05-04] MEDS: HEPARIN 25,000 UNIT/500ML D5W 500 ML IV PRN (15:00)
[2016-05-04] MEDS ORDERED: ONDANSETRON INJ 2 MG/ML 2 ML VIAL IV PRN (15:15)
[2016-05-04] MEDS ORDERED: INSULIN HUMAN REGULAR SC SCH (16:00)
[2016-05-04] MEDS ORDERED: METOPROLOL TARTRATE 50 MG TAB PO STA (16:03)
[2016-05-04] MEDS ORDERED: WARFARIN SOD 5 MG TAB PO ONE (16:15)
--- NOTE | 2016-05-04 16:33 | Medical Consult ---
Consultation Date of Consultation: May 04, 2016. . Attending Physician: Hay Cook M.D. . Reason for Consultation: medical management . History of Present Illness 80 YO female followed by Dr. Contreras for Family Medicine. History of ischemic heart disease, remote history of AF, hypertension, severe UGI bleed due to duodenal ulcer, and other problems noted below. Developed acute onset of LLE pain this morning. Brought to ED. Found to be in AF with RVR; also noted to have LLE ischemia. Received IV diltiazem for RVR. Emergent Vascular Surgery consultation obtained. Embolectomy performed by Dr. Cook with good results. Admitted to ICU postoperatively. Doing well postoperatively. No chest pain. No cough or dyspnea. No vomiting. Postop pain well-controlled. Patient indicates that she has been experiencing nausea and anorexia for several days. No melena or hematochezia. She has not been taking most of her meds, including metoprolol, due to her GI symptoms. . Past Medical/Surgical History Chronic Medical Problems: (1) Atrial Fibrillation, history of Status: Chronic (3) Diabetes mellitus, type 2 Status: Chronic (5) History of breast cancer Status: Chronic (6) History of rectal cancer Status: Chronic (7) History of upper gastrointestinal bleeding Permanent Comment: duodenal ulcer 2013 Status: Chronic (8) Hypertension Nos Status: Chronic (9) Hypothyroidism Status: Chronic Surgical Problems: (1) Status post cardiac catheterization Status: Chronic (2) Status post colostomy Status: Chronic (3) Status post coronary artery bypass grafting Status: Chronic (4) Status post partial colectomy Status: Chronic (5) Status post partial mastectomy Status: Chronic . Family History Blood clots Diabetes mellitus Hypertension Kidney stones Social History Smoking Status: Never Smoker Marital Status: Occupation Status: unemployed Allergies Coded Allergies: Iodine (Verified Allergy, Intermediate, ITCHING, 04/16/09) Lisinopril (Verified Allergy, Unknown, 04/16/09) Sulfa Antibiotics (Verified Allergy, Unknown, ITCHING, 08/12/15) MD STATES LISINOPRIL & IODINE ALLERGIES, ER STATES IODINE & SULFA--PT TOO LETHARGIC TO VERIFY Home Medications Reported Home Medications Medications Dose Route/Sig Max Daily Dose Days Date Category Dose Instructions Vitamin D3 (Cholecalciferol) 2,000 Unit Cap 2,000 Inter.unit PO DAILY 03/14/16 Reported Clopidogrel (Clopidogrel Bisulfate) 75 Mg Tab 75 Mg PO DAILY 03/14/16 Reported Rosuvastatin Calcium 10 Mg Tab 10 Mg PO HS 03/14/16 Reported Glipizide ER (Glipizide) 10 Mg Tabcr 10 Mg PO BIDM 03/14/16 Reported TAKE THIS MEDICATION WITH BREAKFAST AND EVENING MEALS Novolin N (Insulin Human NPH) 100 Units/Ml Susp 15-20 Units SC HS 03/14/16 Reported Novolog (Insulin Aspart) 100 Units/Ml Inj 1 Dose SC BID 03/14/16 Reported COVERAGE DIRECTED BY SLIDING SCALE Toprol Xl (Metoprolol Succinate) 50 Mg Tabcr 50 Mg PO DAILY 03/14/16 Reported Levothyroxine Sodium 50 Mcg Tab 50 Mcg PO DAILY 08/12/15 Reported Nitrostat (Nitroglycerin) 0.4 Mg Sub 0.4 Mg UT UD PRN 08/12/[address] ONE TABLET UNDER THE TONGUE EVERY 5 MINUTES FOR UP TO 3 DOSES IF NEEDED FOR CHEST PAIN. Lumigan (Bimatoprost) 0.01 % Marli 1 Drop OPB HS 08/12/13 Reported Current Inpatient Medications Current Inpatient Medications Medications (Trade) Dose Ordered Sig/Fina Route Start Time Stop Time Status Last Admin Dose Admin Ioversol 125 ml 125 ml UD PRN IV 05/04/16 08:45 05/08/16 08:44 Cefazolin Sodium (Ancef 2000mg/60 ml D5W) 60 ml @ 100 mls/hr PREOP IV 05/04/16 06:00 05/04/16 18:00 05/04/16 10:01 100 MLS/HR Acetaminophen (Tylenol Tab) 650 mg Q4H PRN PO 05/04/16 11:45 06/03/16 11:44 Oxycodone/ Acetaminophen (Percocet 5-325mg Tab) `1-2 TABS FOR MODER... Q4H PRN PO 05/04/16 11:45 05/18/16 11:44 Morphine Sulfate 1 mg 1 mg Q2H PRN IV 05/04/16 11:45 05/18/16 11:44 Promethazine HCl 12.5 mg/Sodium Chloride 50.5 ml @ 202 mls/hr Q6H PRN IV 05/04/16 11:45 06/03/16 11:44 Pantoprazole Sodium 40 mg/ Syringe 10 ml @ 5 mls/min DAILY@11 IV 05/05/16 11:00 06/04/16 10:59 Cefazolin Sodium 2000 mg/Dextrose 60 ml @ 100 mls/hr Q8H IV 05/04/16 14:00 05/04/16 22:35 05/04/16 13:45 100 MLS/HR Dextrose/Sodium Chloride (D5W And 1/2nss) 1,000 ml @ 125 mls/hr Q8H IV 05/04/16 14:00 05/04/16 21:59 05/04/16 13:20 125 MLS/HR Insulin Human Regular (novoLIN-R) SLIDING SCALE IF C... ACHS SC 05/04/16 16:00 06/03/16 15:59 Glucose (Glucose 40% Gel) 15-30 GRAMS 15 GRAMS... UD PRN PO 05/04/16 11:45 06/03/16 11:44 Glucose (Glucose Chew Tab) 4-8 Tablets 4 Tabl... UD PRN PO 05/04/16 11:45 06/03/16 11:44 Dextrose (Dextrose 50% 50ML Syringe) 25-50ML OF 50% DW IV FOR... UD PRN IV 05/04/16 11:45 06/03/16 11:44 Glucagon (Glucagon Inj) 1 mg UD PRN SQ 05/04/16 11:45 06/03/16 11:44 Clopidogrel Bisulfate (plAVix TAB) 75 mg DAILY PO 05/05/16 09:00 06/04/16 08:59 Levothyroxine Sodium (Synthroid Tab) 50 mcg DAILYBB PO 05/05/16 06:00 06/04/16 05:59 Metoprolol Succinate (Toprol Xl Tab) 50 mg DAILY PO 05/05/16 09:00 06/04/16 08:59 Nitroglycerin (Nitrostat Tab) 0.4 mg UD PRN UT 05/04/16 11:45 06/03/16 11:44 Rosuvastatin Calcium (Crestor Tab) 10 mg HS PO 05/04/16 21:00 06/03/16 20:59 Bimatoprost (Lumigan 0.01%) 1 drops HS OPB 05/04/16 21:00 06/03/16 20:59 Cholecalciferol (Vitamin D Tab) 2,000 inter.unit DAILY PO 05/05/16 09:00 06/04/16 08:59 Nystatin (Mycostatin Powder) 1 appln DAILY EXT 05/05/16 09:00 06/04/16 08:59 Morphine Sulfate (MoRPHine SULFATE INJ) 2 mg Q2H PRN IV 05/04/16 13:15 05/18/16 13:14 Morphine Sulfate (MoRPHine SULFATE INJ) 4 mg Q2H PRN IV 05/04/16 13:15 05/18/16 13:14 Morphine Sulfate 3 mg 3 mg Q2H PRN IV 05/04/16 13:30 05/18/16 13:29 Diltiazem HCl 125 mg/Dextrose 125 ml @ 0 mls/hr Q0M PRN IV 05/04/16 14:15 06/03/16 14:14 05/04/16 14:55 15 MLS/HR Heparin Sodium/ Dextrose (Heparin 25,000 Unit/500ml D5W) 500 ml @ 1 mls/hr Q24H PRN IV 05/04/16 14:15 06/03/16 14:14 05/04/16 15:00 1 MLS/HR Ondansetron HCl (Zofran Inj) 4 mg Q8H PRN IV 05/04/16 15:15 06/03/16 15:14 Warfarin Sodium (Coumadin Tab) 5 mg DAILY@16 PO 05/05/16 16:00 06/04/16 15:59 Review of Systems As noted above. . Physical Exam Date Time Temp Pulse Resp B/P Pulse Ox O2 Delivery O2 Flow Rate FiO2 05/04/16 13:50 36.8 108 18 137/76 100 Nasal Cannula 2.0 108 05/04/16 12:25 36.8 114 16 119/86 100 Nasal Cannula 2 05/04/16 12:15 113 16 125/84 100 Nasal Cannula 2 05/04/16 12:06 117 16 132/89 99 Mask 10 05/04/16 11:59 37.1 108 16 146/89 99 Mask 10 05/04/16 10:03 146 103/73 05/04/16 10:02 146 103/73 05/04/16 09:43 150 05/04/16 08:52 Nasal Cannula 2.0 05/04/16 08:43 94 Room Air 05/04/16 08:36 36.8 146 20 191/99 94 Room Air General Appearance: no apparent distress Head: normocephalic, atraumatic Eyes: normal inspection, PERRL, EOMI, sclerae normal ENT: normal ENT inspection, hearing grossly normal Neck: supple, no adenopathy, thyroid normal, no JVD, trachea midline, + pertinent finding (left IJ) Respiratory/Chest: lungs clear, no respiratory distress, no accessory muscle use Cardiovascular: no gallop, no JVD, no murmur, + irregularly irregular, + pertinent finding (trace pretibial edema) Abdomen/GI: normal bowel sounds, non tender, soft, no organomegaly, + pertinent finding (colostomy) Extremities/Musculoskelatal: no calf tenderness, normal capillary refill (left toes 1-2 sec), + pedal edema (trace), + pertinent finding (pedal pulses diminished but palpable; left radial artery catheter) Neurologic/Psych: capacity planning analyst II-XII nml as tested (PERRL, EOMI), oriented x 3 Skin: normal color, warm/dry, no rash Lymphatic: no adenopathy Laboratory Results Last 24 Hours Test 05/04/16 08:38 05/04/16 09:30 05/04/16 12:07 05/04/16 12:18 Bedside Hemoglobin 18.4 g/dl Bedside Hematocrit 54 % Bedside Sodium 137 mEq/L Bedside Potassium 4.3 mEq/L Bedside Chloride 101 mEq/L Bedside Total CO2 18 mEq/l Anion Gap 23.0 mmol/L 16.0 mmol/L 14.0 mmol/L Bedside Blood Urea Nitrogen 19 mg/dl Bedside Creatinine 1.1 mg/dl Bedside Glucose (other) 336 mg/dl Bedside Ionized Calcium (Tray) 1.09 mmol/l White Blood Count 10.16 K/uL 13.57 K/uL Red Blood Count 5.16 M/uL 4.74 M/uL Hemoglobin 16.3 g/dL 14.6 g/dL Hematocrit 46.7 % 42.1 % Mean Corpuscular Volume 90.5 fL 88.8 fL Mean Corpuscular Hemoglobin 31.6 pg 30.8 pg Mean Corpuscular Hemoglobin Concent 34.9 g/dl 34.7 g/dl Platelet Count 317 K/uL 290 K/uL Mean Platelet Volume 9.9 fL 9.3 fL Neutrophils (%) (Auto) 91.9 % 88.1 % Lymphocytes (%) (Auto) 4.0 % 5.7 % Monocytes (%) (Auto) 3.8 % 5.9 % Eosinophils (%) (Auto) 0.1 % 0.0 % Basophils (%) (Auto) 0.0 % 0.1 % Neutrophils # (Auto) 9.33 K/uL 11.96 K/uL Lymphocytes # (Auto) 0.41 K/uL 0.77 K/uL Monocytes # (Auto) 0.39 K/uL 0.80 K/uL Eosinophils # (Auto) 0.01 K/uL 0.00 K/uL Basophils # (Auto) 0.00 K/uL 0.01 K/uL RDW Standard Deviation 47.6 fL 46.2 fL RDW Coefficient of Variation 14.3 % 14.1 % Immature Granulocyte % (Auto) 0.2 % 0.2 % Immature Granulocyte # (Auto) 0.02 K/uL 0.03 K/uL Prothrombin Time 12.5 SECONDS Prothromb Time International Ratio 1.2 Activated Partial Thromboplast Time 23.3 SECONDS Partial Thromboplastin Ratio 0.9 Sodium Level 137 mmol/L 135 mmol/L Potassium Level 4.0 mmol/L 4.3 mmol/L Chloride Level 102 mmol/L 102 mmol/L Carbon Dioxide Level 19 mmol/L 19 mmol/L Blood Urea Nitrogen 18 mg/dl 19 mg/dl Creatinine 1.40 mg/dl 1.40 mg/dl Estimated GFR () 40.5 40.5 Estimated GFR (Non- 34.9 34.9 BUN/Creatinine Ratio 13.1 13.2 Random Glucose 319 mg/dl 259 mg/dl Calcium Level 9.3 mg/dl 8.4 mg/dl Total Bilirubin 0.9 mg/dl Aspartate Amino Transf (AST/SGOT) 10 U/L Alanine Aminotransferase (ALT/SGPT) 9 U/L Alkaline Phosphatase 98 U/L Total Creatine Kinase 40 U/L Creatine Kinase MB 1.6 ng/ml Creatine Kinase MB Ratio 4.0 Troponin I 0.019 ng/ml 0.028 ng/ml Total Protein 7.6 gm/dl Albumin 3.1 gm/dl Globulin 4.5 gm/dl Albumin/Globulin Ratio 0.7 Beta-Hydroxybutyric Acid 27.27 mg/dL Bedside Glucose 250 mg/dl Magnesium Level 2.0 mg/dl Assessment & Plan LLE ISCHEMIA Probable cardioembolic event. Doing well after embolectomy. Started on IV heparin. ATRIAL FIBRILLATION Recurrent AF with RVR. Not taking metoprolol for several days due to GI symptoms. Rate now well-controlled. Management per Cardiology. CAD Management per Cardiology. HISTORY OF UGI BLEED Started on PPI for prophylaxis. NAUSEA / ANOREXIA Etiology uncertain. PPI as noted above. Monitor for signs of GI bleeding. Consider EGD prior to discharge if symptoms persist. DM TYPE 2 Usually well-controlled. Hold glipizide during hospital stay. Lantus / NovoLog per protocol. Thank you for this consultation. We will follow the patient with you during their hospital stay. Dr. Ciara De Leon will be rounding for our service starting 05/05. You can reach a [facility]/10 via pager @ . You can reach me via cell @ [phone]. .
[2016-05-04] MEDS: SODIUM CHLORIDE 0.9% 1000ML 1,000 ML IV SCH ×2 (16:57→22:23)
[2016-05-04] MEDS ORDERED: INSULIN GLARGINE SOLOSTAR 100 UNITS/ML 3 ML PEN SC ONE (17:00)
[2016-05-04] MEDS ORDERED: INSULIN ASPART 100 UNITS/ML 3 ML PEN SC SCH (17:15)
--- NOTE | 2016-05-04 17:25 | CARDIOLOGY CONSULTATION ---
DATE OF CONSULTATION: 05/04/2016 HISTORY OF PRESENT ILLNESS: Lauren De La Garza is an 80-year-old female seen in cardiology consultation per the request of Dr. Cook for atrial fibrillation with rapid ventricular rate with presumed cardiac embolism to the left lower extremity. The patient's primary care provider is Dr. Saturnino Contreras. The patient follows with the undersigned as an outpatient from a cardiology perspective. The patient has recently had nontraumatic compression fractures for which she has been seen by her primary care provider as well as pain management. Last month, she was referred for therapy as an inpatient at [facility]. She was already back home when this morning she got up at around 6:00 initially felt well. Shortly after, she felt acute onset of left lower extremity discomfort prompting her to come to the Emergency Department. Upon arrival to the Emergency Department by ambulance, she was noted to be in atrial fibrillation with rapid ventricular rate, her left leg was cold and pulseless upon arrival. The patient had not been taking her clopidogrel for the last several days because of feeling generalized illness. She was seen by Dr. Cook of vascular surgery and there was concern of left leg embolism and therefore she was taken to the operating room where she received embolectomy of the left leg with patch angioplasty. She was placed on IV diltiazem for rate control during the surgery. Upon arrival to the surgical intensive care unit, she was on a dose of diltiazem infusion at 20 mg per hour with a heart rate in the 90-99 beat per minute range, and systolic blood pressure of 100-110 mmHg. The patient was awake and conversant when I spoke to her upon arrival to the SICU. She stated that her leg discomfort had resolved. She denied any chest discomfort or shortness of breath. Denied any subjective palpitations. The patient had last been seen by the undersigned in June 2014. PAST MEDICAL HISTORY: 1. Ischemic heart disease, status post 3-vessel coronary artery bypass grafting in [address] [place] [address] Amaya with prior large anterior, anteroseptal, myocardial infarction in 2009, history of preserved EF. 2. Frequent PVCs on EKG. 3. Hospitalization in August 2013 for severe anemia due to duodenal ulcer which was resolved on repeat EGD performed in November 2013. 4. History of past atrial fibrillation with no recurrence documented until today, 05/04/2016. 5. Hypertension. 6. Dyslipidemia, for which she is on Crestor. 7. Diabetes mellitus. 8. Hypothyroidism. 9. Chronic renal insufficiency. 10. History of depression. 11. History of past breast carcinoma for which she follows with Dr. Bran. 12. History of iodine allergy. PAST SURGICAL HISTORY: 1. Coronary artery bypass grafting as outlined above. 2. Cardiac catheterization in 2002. 3. EGD. 4. Cataract extraction. 5. Left lower extremity embolectomy as noted above. 6. Apparent old chart history of atrial septal defect repair that took place at the time of her bypass. SOCIAL HISTORY: The patient is . She is a former smoker having quit in 1992, smoked 1 pack per day for 49 years. 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 FAMILY HISTORY: Heart disease in mother who had a myocardial infarction at age 59. COMPREHENSIVE REVIEW OF SYSTEMS: A 10-point review of systems reviewed and is negative with the exception of recent back pain, and recent leg pain which is now resolved. PHYSICAL EXAMINATION: VITAL SIGNS: Temperature 36.8, heart rate 99, blood pressure 137/76. GENERAL APPEARANCE: Awake and oriented x3, in no acute distress. HEENT: Extraocular muscles were intact. Pupils equal and reactive to light. NECK: No bruits or cervical lymphadenopathy. CARDIOVASCULAR: Irregular rate, tachycardic. No murmurs. EXTREMITIES: No edema. ABDOMEN: Soft, nontender. LUNGS: Clear. No rales, rhonchi or wheezing. DIAGNOSTIC DATA: EKG performed on arrival revealed atrial fibrillation with rapid ventricular rate and right bundle branch block with noted inferior T-wave abnormality suggestive of possible ischemia. Compared to the prior tracing from 03/31/2016, atrial fibrillation has replaced sinus rhythm, right bundle branch block has replaced the RSR prime pattern in lead V1. WBC 13.57, hemoglobin 14.6, platelet count 290. Sodium 135, potassium 4.3, BUN 19, creatinine 1.4. Troponin 0.19 and 0.028. Beta hydroxybutyric acid elevated at 27.27. FINAL IMPRESSION: 1. Atrial fibrillation with rapid ventricular rate with resultant left lower extremity embolism. 2. Status post surgical left lower extremity embolectomy. 3. History of coronary artery disease and previous coronary artery bypass grafting as well as atrial septal defect repair. 3. New right bundle branch block. 4. History of past asymptomatic premature ventricular contractions. 5. History of profound anemia attributed to duodenal ulcer in 2014. RECOMMENDATIONS: Continue unfractionated heparin, at Coumadin with caution given history of duodenal ulcer. Proton pump inhibitor will be started for GI prophylaxis. Continue clopidogrel for now. The patient's home dose of metoprolol succinate 50 mg will be continued. I am going to administer a 1 time dose of metoprolol tartrate for now for further rate control, and we will work on weaning the diltiazem drip by 1 mg per 30 minutes as tolerated. MTDD
[2016-05-04] MEDS ORDERED: SODIUM CHLORIDE 0.9% 500ML 500 ML IV ONE (20:45)
[2016-05-04] MEDS: BIMATOPROST 0.01% OP SOLN 2.5 ML BTL OPB SCH (21:17)
[2016-05-04] MEDS: ROSUVASTATIN CALCIUM 10 MG TAB PO SCH (21:18)
[2016-05-04] MEDS: INSULIN GLARGINE SOLOSTAR 100 UNITS/ML 3 ML PEN SC SCH (21:19)
[2016-05-04] MEDS: INSULIN ASPART 100 UNITS/ML 3 ML PEN SC SCH (21:20)
--- NOTE | 2016-05-04 22:46 | CRITICAL CARE CONSULTATION ---
DATE OF CONSULTATION: 05/04/2016 CHIEF COMPLAINT: Left leg pain. HISTORY OF PRESENT ILLNESS: The patient is an 80-year-old woman with multiple medical problems such as coronary artery disease, atrial fibrillation, hypertension and diabetes, who presents to the Emergency Department this morning with sudden onset of left leg pain. She said she was lying down and noticed a cramping sensation in her leg this morning after she had gotten out of bed. It was the worst pain she had ever felt and her leg was numb. She tried to stand up and says she nearly fell down because it was so painful. Her brother with whom she lives summoned the ambulance and she was brought to the Emergency Department where she was found to be in rapid atrial fibrillation with a cold pulseless left leg that was mottled to the hip. She reports not taking her Plavix for the past several days due to feeling generally ill. She felt nauseated and had a poor appetite. She denies fevers, chills, diarrhea or cough. In the Emergency Department, she received Cardizem 30 mg bolus x2 and then an infusion. She also received Zofran, morphine, heparin infusion, and Dilaudid. Dr. Cook took her to the operating room for a left lower extremity embolectomy with patch angioplasty. There were no reported intraoperative complications. She was bolused with heparin prior to coming to the ICU and was also started on a heparin infusion. She has been seen by the cardiology and hospitalist services today. I have discussed her care with Dr. Cook as well. Presently she is comfortable and denies shortness of breath or chest pain. She tells me she is not sure that she has had atrial fibrillation in the past, although it is documented in her old charts. She was recently at [facility] after having a spinal fracture, but otherwise has been feeling relatively well until several days ago. PAST MEDICAL HISTORY: Coronary artery disease, status post coronary artery bypass graft surgery x3 vessels with ASD repair in 2003. She reports she has been on Plavix since that time. Atrial fibrillation, congestive heart failure, hypertension, hypothyroidism, syncope, diabetes mellitus type 2, glaucoma, GI bleed secondary to duodenal ulcer, breast cancer. PAST SURGICAL HISTORY: Left partial mastectomy in 2007, coronary artery bypass grafting surgery, tonsillectomy, adenoidectomy, cataract extraction and colostomy in July of 2015, I am not sure what the surgery was. ALLERGIES: TO IODINE, LISINOPRIL, SULFA AND ZOFRAN WHICH IS LISTED CAUSING VOMITING. OUTPATIENT MEDICATIONS: Lumigan eyedrops, vitamin D3, Plavix, glipizide, Novolin insulin, levothyroxine, Toprol-XL, nitroglycerin p.r.n., and rosuvastatin. 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 She smoked 1 pack of cigarettes per day x50 years and is . She lives in a house with her brother. FAMILY HISTORY: Significant for diabetes mellitus and hypertension. REVIEW OF SYSTEMS: She has been using a cane to get around the house. She denies melena, hematemesis, abdominal pain. She has back pain which is somewhat chronic. Additional review of systems are negative or noncontributory in 12-point system. PHYSICAL EXAMINATION: GENERAL: This is a very friendly elderly woman lying in bed in no acute distress. VITAL SIGNS: Temperature is 36.9, heart rate 96, respiratory rate 16, blood pressure 134/60, oxygen saturation 99% on room air. HEENT: Oral mucosa is dry. Lips are dry. NECK: Veins are flat. Trachea midline. LUNGS: Clear to auscultation bilaterally. No rales, rhonchi or wheezes. HEART: Regular rate, irregular rhythm. No murmurs noted. ABDOMEN: Obese, soft, nondistended, nontender. Active bowel sounds. She has a colostomy in place. EXTREMITIES: Warm. The right leg is bigger than the left leg. There is a bulky dressing in the left groin which has a small amount of old drainage on it. Feet are warm and left DP pulse is 1+/ She has a left radial arterial line in place. SKIN: Has yeast in most of her skin folds on her anterior body from the neck to the knees. NEUROLOGIC: She is awake, alert, follows commands, moves all 4 extremities. LABORATORY DATA: White blood cell count 13.57, hemoglobin 14.6, hematocrit 42.1, platelets 290. Sodium 135, potassium 4.3, chloride 102, CO2 19, BUN 19, creatinine 1.4, blood sugar 259. Troponins negative x2. PT, PTT, INR within normal limits. Portable chest x-ray was reviewed and shows no acute process. Sternal wires are evident. EKG shows atrial fibrillation with rapid ventricular response. IMPRESSION: 1. Status post left lower extremity embolectomy, likely secondary to thromboembolism from atrial fibrillation. 2. Atrial fibrillation with rapid ventricular response. 3. Possible acute kidney injury. She had a normal creatinine in November of 2015. 4. Diabetes mellitus with hyperglycemia. 5. Liz skin infection in her skin folds. 6. History of hypertension. 7. History of coronary artery disease. PLAN: 1. Continue heparin infusion and neurovascular checks. 2. She has been started back on her Lopressor and is now off the Cardizem. I will order IV Lopressor p.r.n. 3. Nystatin for the skin folds. 4. Normal saline bolus secondary to decreased urine output. 5. Follow up creatinine as well as other labs tomorrow morning. 6. I suspect she will need physical therapy and occupational therapy. 7. Provide GI prophylaxis. 8. Glycemic management. MTDD
[2016-05-04 22:48] LABS: PARTIAL THROMBOPLASTIN RATIO 4.6
[2016-05-05] VITALS (11 sets, daily range): BP systolic 95–128; BP diastolic 50–85; PULSE 98–129; TEMP 36.6–37.8; O2SAT 93–97
[2016-05-05] MEDS ORDERED: INSULIN ASPART 100 UNITS/ML 3 ML PEN SC ONE (03:07)
[2016-05-05] MEDS: METOPROLOL TARTRATE 1 MG/ML VIAL IV PRN ×4 (04:13→19:41)
[2016-05-05] MEDS: SODIUM CHLORIDE 0.9% 1000ML 1,000 ML IV SCH (05:40)
[2016-05-05] MEDS: LEVOTHYROXINE 50 MCG TAB PO SCH (05:40)
[2016-05-05 05:48] LABS: BASO % 0.2 %; BASO ABS # 0.01 K/uL (0-0.2); COMPLETE YES; IG% 0.2 %; LYMPH % 9.9 %; LYMPH ABS # 0.59 K/uL (1.2-3.4); MEAN CELL VOLUME 90.7 fL (80-100); MEAN CORPUSCULAR HEMOGLOBIN 31.1 pg (25-34); MEAN CORPUSCULAR HGB CONC 34.3 g/dl (32-36); MEAN PLATELET VOLUME 9.6 fL (7.4-10.4); MONO % 6.9 %; NEUT % 81.8 %; PLATELET COUNT 252 K/uL (130-400); RED BLOOD COUNT 3.86 M/uL (4.2-5.4); WHITE BLOOD COUNT 5.96 K/uL (4.8-10.8)
[2016-05-05] MEDS ORDERED: CEFAZOLIN IV 1,000 MG in DEXTROSE 5% 50ML 50 ML IV ONE (06:00)
[2016-05-05 06:10] LABS: INR 1.3 (0.9-1.1); PARTIAL THROMBOPLASTIN RATIO 2.3
[2016-05-05 06:27] LABS: BUN/CREATININE RATIO 12.2 (10-20); CALCIUM 7.8 mg/dl (8.5-10.1); CREATININE 0.9 mg/dl (0.60-1.20); POTASSIUM 3.8 mmol/L (3.5-5.1)
[2016-05-05 06:33] LABS: ESTIMATED AVERAGE GLUCOSE 160 mg/dl; HA1C FLAG Normal (Normal)
[2016-05-05] MEDS: INSULIN ASPART 100 UNITS/ML 3 ML PEN SC SCH ×4 (07:32→21:36)
[2016-05-05] MEDS: NYSTATIN POWDER 15GM BTL EXT SCH (08:07)
[2016-05-05] MEDS: CLOPIDOGREL BISULFATE 75 MG TAB PO SCH (08:07)
--- NOTE | 2016-05-05 08:07 | Anesthesiology Progress Note ---
Anesthesia Post Op Note Date & Time May 05, 2016 at 08:06 Vital Signs Vital Signs Past 12 Hours Date Time Temp Pulse Resp B/P Pulse Ox O2 Delivery O2 Flow Rate FiO2 05/05/16 06:00 101 22 114/63 93 Room Air 05/05/16 04:13 122 119/59 05/05/16 04:00 Room Air 05/05/16 04:00 36.7 120 20 109/84 97 Room Air 05/05/16 02:00 103 23 96/50 96 Room Air 05/05/16 00:01 36.6 98 28 95/51 96 Room Air 05/04/16 23:59 Room Air 05/04/16 22:00 104 18 105/51 91 Room Air Notes Mental Status: alert / awake / arousable, participated in evaluation Pt Amnestic to Procedure: Yes Nausea / Vomiting: adequately controlled Pain: adequately controlled Airway Patency, RR, SpO2: stable & adequate BP & HR: stable & adequate Hydration State: stable & adequate Anesthetic Complications: no major complications apparent
[2016-05-05] MEDS: INSULIN GLARGINE SOLOSTAR 100 UNITS/ML 3 ML PEN SC SCH ×2 (08:09→21:35)
[2016-05-05] MEDS ORDERED: POTASSIUM CHLORIDE 10 MEQ TABCR PO STA (08:40)
[2016-05-05] MEDS ORDERED: METOPROLOL SUCC 50MG EXT REL TAB PO SCH (09:00)
--- NOTE | 2016-05-05 09:41 | Progress Note ---
Progress Note Date of Service: May 05, 2016. Subjective 80 yo f POD #1 after LLE embolectomy with patch angioplasty performed d/t acute arterial occlusion with likely cardioembolic source, seen in f/u today. Pt states she is feeling much better than yesterday. Admits pain in L groin incision, but states L leg pain is resolved. Denies any new complaints. Problem List Medical Problems: (1) Atrial fibrillation with RVR Status: Acute (2) Incarcerated incisional hernia Status: Acute (3) SBO (small bowel obstruction) Status: Acute (4) Thoracic compression fracture Status: Acute (5) Upper back pain on left side Status: Acute (6) UTI (urinary tract infection) Status: Acute Objective Vital Signs Vital Signs Past 12 Hours Date Time Temp Pulse Resp B/P Pulse Ox O2 Delivery O2 Flow Rate FiO2 05/05/16 08:00 36.9 101 22 114/63 95 Room Air 05/05/16 08:00 Room Air 05/05/16 06:00 101 22 114/63 93 Room Air 05/05/16 04:13 122 119/59 05/05/16 04:00 Room Air 05/05/16 04:00 36.7 120 20 109/84 97 Room Air 05/05/16 02:00 103 23 96/50 96 Room Air 05/05/16 00:01 36.6 98 28 95/51 96 Room Air 05/04/16 23:59 Room Air 05/04/16 22:00 104 18 105/51 91 Room Air Exam CONST: A&O x4, NAD, mildly chronically ill appearing female CHEST: irregular, lungs decreased,but ctab ABD: soft, nontender, + colostomy, + bs x 4 quad EXT: L groin incision + tenderness, C/D/I, dressing in place. Foot warm and pink, + doppler DP/PT. brisk cap refill. Intake & Output 8-Hour Column 05/04/16 05/05/16 05/05/16 16:00 00:00 08:00 Intake Total 1650 ml 2070 ml 1333 ml Output Total 160 ml 450 ml 275 ml Balance 1490 ml 1620 ml 1058 ml 24-Hour Column 05/05/16 08:00 Intake Total 5053 ml Output Total 885 ml Balance 4168 ml Laboratory and Microbiology Results Past 24 Hours Test 05/04/16 12:07 05/04/16 12:18 05/04/16 18:14 05/04/16 21:07 Range/Units Bedside Glucose 250 350 70-90 mg/dl White Blood Count 13.57 4.8-10.8 K/uL Red Blood Count 4.74 4.2-5.4 M/uL Hemoglobin 14.6 12.0-16.0 g/dL Hematocrit 42.1 37-47 % Mean Corpuscular Volume 88.8 80-100 fL Mean Corpuscular Hemoglobin 30.8 25-34 pg Mean Corpuscular Hemoglobin Concent 34.7 32-36 g/dl Platelet Count 290 130-400 K/uL Mean Platelet Volume 9.3 7.4-10.4 fL Neutrophils (%) (Auto) 88.1 % Lymphocytes (%) (Auto) 5.7 % Monocytes (%) (Auto) 5.9 % Eosinophils (%) (Auto) 0.0 % Basophils (%) (Auto) 0.1 % Neutrophils # (Auto) 11.96 1.4-6.5 K/uL Lymphocytes # (Auto) 0.77 1.2-3.4 K/uL Monocytes # (Auto) 0.80 0.11-0.59 K/uL Eosinophils # (Auto) 0.00 0-0.5 K/uL Basophils # (Auto) 0.01 0-0.2 K/uL RDW Standard Deviation 46.2 36.4-46.3 fL RDW Coefficient of Variation 14.1 11.5-14.5 % Immature Granulocyte % (Auto) 0.2 % Immature Granulocyte # (Auto) 0.03 0.00-0.02 K/uL Sodium Level 135 136-145 mmol/L Potassium Level 4.3 3.5-5.1 mmol/L Chloride Level 102 98-107 mmol/L Carbon Dioxide Level 19 21-32 mmol/L Anion Gap 14.0 3-11 mmol/L Blood Urea Nitrogen 19 7-18 mg/dl Creatinine 1.40 0.60-1.20 mg/dl Estimated GFR () 40.5 Estimated GFR (Non- 34.9 BUN/Creatinine Ratio 13.2 10-20 Random Glucose 259 70-99 mg/dl Calcium Level 8.4 8.5-10.1 mg/dl Magnesium Level 2.0 1.8-2.4 mg/dl Troponin I 0.028 0.025 0-0.045 ng/ml Test 05/04/16 22:16 05/04/16 23:40 05/05/16 03:12 05/05/16 05:22 Range/Units Activated Partial Thromboplast Time 120.4 60.2 21.0-31.0 SECONDS Partial Thromboplastin Ratio 4.6 2.3 Troponin I 0.024 0-0.045 ng/ml Bedside Glucose 174 70-90 mg/dl White Blood Count 5.96 4.8-10.8 K/uL Red Blood Count 3.86 4.2-5.4 M/uL Hemoglobin 12.0 12.0-16.0 g/dL Hematocrit 35.0 37-47 % Mean Corpuscular Volume 90.7 80-100 fL Mean Corpuscular Hemoglobin 31.1 25-34 pg Mean Corpuscular Hemoglobin Concent 34.3 32-36 g/dl Platelet Count 252 130-400 K/uL Mean Platelet Volume 9.6 7.4-10.4 fL Neutrophils (%) (Auto) 81.8 % Lymphocytes (%) (Auto) 9.9 % Monocytes (%) (Auto) 6.9 % Eosinophils (%) (Auto) 1.0 % Basophils (%) (Auto) 0.2 % Neutrophils # (Auto) 4.88 1.4-6.5 K/uL Lymphocytes # (Auto) 0.59 1.2-3.4 K/uL Monocytes # (Auto) 0.41 0.11-0.59 K/uL Eosinophils # (Auto) 0.06 0-0.5 K/uL Basophils # (Auto) 0.01 0-0.2 K/uL RDW Standard Deviation 47.8 36.4-46.3 fL RDW Coefficient of Variation 14.4 11.5-14.5 % Immature Granulocyte % (Auto) 0.2 % Immature Granulocyte # (Auto) 0.01 0.00-0.02 K/uL Prothrombin Time 14.0 9.0-12.0 SECONDS Prothromb Time International Ratio 1.3 0.9-1.1 Sodium Level 138 136-145 mmol/L Potassium Level 3.8 3.5-5.1 mmol/L Chloride Level 103 98-107 mmol/L Carbon Dioxide Level 26 21-32 mmol/L Anion Gap 9.0 3-11 mmol/L Blood Urea Nitrogen 11 7-18 mg/dl Creatinine 0.90 0.60-1.20 mg/dl Est Creatinine Clear Calc Drug Dose 50.0 ml/min Estimated GFR () 69.0 Estimated GFR (Non- 59.5 BUN/Creatinine Ratio 12.2 10-20 Random Glucose 189 70-99 mg/dl Estimated Average Glucose 160 mg/dl Hemoglobin A1c 7.2 4.5-5.6 % Calcium Level 7.8 8.5-10.1 mg/dl ASSESSMENT and PLAN: s/p LLE embolectomy with patch angioplasty LLE acute arterial occlusion/embolism A fib Pt doing well post op. Appreciate cardiology recs. Increase activity, OOB to chair. Continue to monitor.
[2016-05-05] MEDS: CHOLECALCIFEROL 1000 INTER.UNIT TAB PO SCH (10:01)
[2016-05-05] MEDS ORDERED: PANTOprazole INJ 40 MG in SYRINGE 0 ML IV SCH (11:00)
[2016-05-05] MEDS: PANTOprazole SOD 40 MG TAB PO SCH (11:44)
--- NOTE | 2016-05-05 12:11 | Progress Note ---
Internal Med Progress Note Date of Service: May 05, 2016. Provider Documentation: SUBJECTIVE: Patient is doing well, having her lunch. Denies any pain, nausea, vomiting, fever, chills, chest pain OBJECTIVE: Vital Signs-as noted below Exam: General-AAOX3, no distress Neck-Supple, NO JVD; Left IJV catheter + Lungs-AEBE decreased, no wheezing, crackles Heart-Irregularly irregular rhythm Abdomen-Soft, non tender, non distended, BS present Extremities-Left groin incision, tenderness +, Pulse- +, no edema, Feet deformities + bilaterally Lab data as noted below. ASSESSMENT & PLAN: Assessment & Plan : ACUTE LLE ISCHEMIA/EMBOLISM Secondary to acute cardioembolic event as symptoms were sudden in onset -S/P Emergent embolectomy by Dr Hunter on05/04/16 -S/P ICU monitoring -IV Heparin and started coumadin 5 mg today. Was not on anti coagulation prior to admission. INR monitoring -Mx per primary team ATRIAL FIBRILLATION WITH RVR HR Still in 110-120s -S/P IV Diltiazem drip in ICU -Was not taking Metoprolol for several days due to GI symptoms - back on it- Metoprolol 50 mg daily. -IV Metoprolol 5 mg q 4 hours PRN for HR > 110 -Cardiology on board. CAD -Management per Cardiology. -Continue with Plavix, Rosuvastatin HISTORY OF UGI BLEED -On PPI for prophylaxis. NAUSEA / ANOREXIA Etiology uncertain. -PPI as noted above. -Monitor for signs of GI bleeding. DM TYPE 2 Usually well-controlled. -Hold glipizide during hospital stay. -Lantus / NovoLog per protocol. Blood glucose in range of 170s DVT PROPHYLAXIS On IV Heparin GI PROPHYLAXIS On protonix DISPOSITION Transferred from ICU to Tele floor today Vital Signs: Date Time Temp Pulse Resp B/P Pulse Ox O2 Delivery O2 Flow Rate FiO2 05/05/16 10:01 115 101/76 05/05/16 10:00 129 29 101/76 05/05/16 08:00 36.9 101 22 114/63 95 Room Air 05/05/16 08:00 Room Air 05/05/16 06:00 101 22 114/63 93 Room Air 05/05/16 04:13 122 119/59 05/05/16 04:00 Room Air 05/05/16 04:00 36.7 120 20 109/84 97 Room Air 05/05/16 02:00 103 23 96/50 96 Room Air 05/05/16 00:01 36.6 98 28 95/51 96 Room Air 05/04/16 23:59 Room Air 05/04/16 22:00 104 18 105/51 91 Room Air 05/04/16 20:00 36.7 92 22 117/56 98 Room Air 05/04/16 20:00 Room Air 05/04/16 18:28 76 16 134/60 99 05/04/16 18:00 80 16 140/66 85 05/04/16 16:00 36.9 82 16 111/62 99 50 05/04/16 16:00 99 Nasal Cannula 2.0 05/04/16 15:00 85 27 120/77 99 50 05/04/16 14:15 108 18 126/64 96 100 05/04/16 13:50 36.8 108 18 137/76 100 Nasal Cannula 2.0 108 05/04/16 13:44 98 13 95/67 98 100 05/04/16 13:29 96 16 111/74 99 100 05/04/16 13:14 94 20 119/81 99 100 05/04/16 13:00 96 15 112/73 99 100 05/04/16 12:25 36.8 114 16 119/86 100 Nasal Cannula 2 05/04/16 12:15 113 16 125/84 100 Nasal Cannula 2 05/04/16 12:06 117 16 132/89 99 Mask 10 Lab Results: Results Past 24 Hours Test 05/04/16 12:07 05/04/16 12:18 05/04/16 15:50 05/04/16 18:14 Range/Units Bedside Glucose 250 352 70-90 mg/dl White Blood Count 13.57 4.8-10.8 K/uL Red Blood Count 4.74 4.2-5.4 M/uL Hemoglobin 14.6 12.0-16.0 g/dL Hematocrit 42.1 37-47 % Mean Corpuscular Volume 88.8 80-100 fL Mean Corpuscular Hemoglobin 30.8 25-34 pg Mean Corpuscular Hemoglobin Concent 34.7 32-36 g/dl Platelet Count 290 130-400 K/uL Mean Platelet Volume 9.3 7.4-10.4 fL Neutrophils (%) (Auto) 88.1 % Lymphocytes (%) (Auto) 5.7 % Monocytes (%) (Auto) 5.9 % Eosinophils (%) (Auto) 0.0 % Basophils (%) (Auto) 0.1 % Neutrophils # (Auto) 11.96 1.4-6.5 K/uL Lymphocytes # (Auto) 0.77 1.2-3.4 K/uL Monocytes # (Auto) 0.80 0.11-0.59 K/uL Eosinophils # (Auto) 0.00 0-0.5 K/uL Basophils # (Auto) 0.01 0-0.2 K/uL RDW Standard Deviation 46.2 36.4-46.3 fL RDW Coefficient of Variation 14.1 11.5-14.5 % Immature Granulocyte % (Auto) 0.2 % Immature Granulocyte # (Auto) 0.03 0.00-0.02 K/uL Sodium Level 135 136-145 mmol/L Potassium Level 4.3 3.5-5.1 mmol/L Chloride Level 102 98-107 mmol/L Carbon Dioxide Level 19 21-32 mmol/L Anion Gap 14.0 3-11 mmol/L Blood Urea Nitrogen 19 7-18 mg/dl Creatinine 1.40 0.60-1.20 mg/dl Estimated GFR () 40.5 Estimated GFR (Non- 34.9 BUN/Creatinine Ratio 13.2 10-20 Random Glucose 259 70-99 mg/dl Calcium Level 8.4 8.5-10.1 mg/dl Magnesium Level 2.0 1.8-2.4 mg/dl Troponin I 0.028 0.025 0-0.045 ng/ml Test 05/04/16 21:07 05/04/16 22:16 05/04/16 23:40 05/05/16 03:12 Range/Units Bedside Glucose 350 174 70-90 mg/dl Activated Partial Thromboplast Time 120.4 21.0-31.0 SECONDS Partial Thromboplastin Ratio 4.6 Troponin I 0.024 0-0.045 ng/ml Test 05/05/16 05:22 05/05/16 11:14 Range/Units White Blood Count 5.96 4.8-10.8 K/uL Red Blood Count 3.86 4.2-5.4 M/uL Hemoglobin 12.0 12.0-16.0 g/dL Hematocrit 35.0 37-47 % Mean Corpuscular Volume 90.7 80-100 fL Mean Corpuscular Hemoglobin 31.1 25-34 pg Mean Corpuscular Hemoglobin Concent 34.3 32-36 g/dl Platelet Count 252 130-400 K/uL Mean Platelet Volume 9.6 7.4-10.4 fL Neutrophils (%) (Auto) 81.8 % Lymphocytes (%) (Auto) 9.9 % Monocytes (%) (Auto) 6.9 % Eosinophils (%) (Auto) 1.0 % Basophils (%) (Auto) 0.2 % Neutrophils # (Auto) 4.88 1.4-6.5 K/uL Lymphocytes # (Auto) 0.59 1.2-3.4 K/uL Monocytes # (Auto) 0.41 0.11-0.59 K/uL Eosinophils # (Auto) 0.06 0-0.5 K/uL Basophils # (Auto) 0.01 0-0.2 K/uL RDW Standard Deviation 47.8 36.4-46.3 fL RDW Coefficient of Variation 14.4 11.5-14.5 % Immature Granulocyte % (Auto) 0.2 % Immature Granulocyte # (Auto) 0.01 0.00-0.02 K/uL Prothrombin Time 14.0 9.0-12.0 SECONDS Prothromb Time International Ratio 1.3 0.9-1.1 Activated Partial Thromboplast Time 60.2 21.0-31.0 SECONDS Partial Thromboplastin Ratio 2.3 Sodium Level 138 136-145 mmol/L Potassium Level 3.8 3.5-5.1 mmol/L Chloride Level 103 98-107 mmol/L Carbon Dioxide Level 26 21-32 mmol/L Anion Gap 9.0 3-11 mmol/L Blood Urea Nitrogen 11 7-18 mg/dl Creatinine 0.90 0.60-1.20 mg/dl Est Creatinine Clear Calc Drug Dose 50.0 ml/min Estimated GFR () 69.0 Estimated GFR (Non- 59.5 BUN/Creatinine Ratio 12.2 10-20 Random Glucose 189 70-99 mg/dl Estimated Average Glucose 160 mg/dl Hemoglobin A1c 7.2 4.5-5.6 % Calcium Level 7.8 8.5-10.1 mg/dl Bedside Glucose 213 70-90 mg/dl
--- NOTE | 2016-05-05 15:10 | Cardiology Follow-Up ---
Subjective General Date of Service: May 05, 2016. Chief Complaint: follow up atrial fibrillation Pt evaluation today including: conversation w/ patient, physical exam History of Present Illness The patient is a 80 year old female seen in follow up. Pt denies complaints. Telemetry reveals continued AF, RVR, V rates 120-130's in bed. Received home dose of metoprolol succinate 50 mg po today and PRN IV metoprolol. Pt denies chest pain or SOB. L groin incision with appropriate post op pain if she moves it , but none at rest. Allergies Coded Allergies: Iodine (Verified Allergy, Intermediate, ITCHING, 04/16/09) Lisinopril (Verified Allergy, Unknown, 04/16/09) Sulfa Antibiotics (Verified Allergy, Unknown, ITCHING, 08/12/15) MD STATES LISINOPRIL & IODINE ALLERGIES, ER STATES IODINE & SULFA--PT TOO LETHARGIC TO VERIFY Social History Smoking Status: Never Smoker Hx Tobacco Use In Past Year?: No Hx Alcohol Use - Type And Amou: No Hx Substance Use - Type And Am: No Problem List Medical Problems: (1) Atrial fibrillation with RVR Status: Acute (2) Incarcerated incisional hernia Status: Acute (3) SBO (small bowel obstruction) Status: Acute (4) Thoracic compression fracture Status: Acute (5) Upper back pain on left side Status: Acute (6) UTI (urinary tract infection) Status: Acute Physical Exam Vital Signs Last Vital Signs Documentation Date Time Temp Pulse Resp B/P Pulse Ox O2 Delivery O2 Flow Rate FiO2 05/05/16 14:06 135 05/05/16 14:06 96/65 05/05/16 11:39 37.4 20 94 Room Air 05/04/16 16:00 50 05/04/16 16:00 2.0 Physical Exam Constitutional: General Apperance: heathly-appearing, well-nourished, well-developed Level of Distress: moderate distress Ambulation: limited ambulation Neck: supple Lungs: Auscultation: breath sounds normal Musculoskeletal: normal Extremities: no edema Neurologic: Sensation: pertinent finding (left leg numb and motionless) Assessment and Plan Assessment and Plan IMPRESSION: 1. Atrial fibrillation with rapid ventricular rate with resultant left lower extremity embolism. 2. Status post surgical left lower extremity embolectomy. 3. History of coronary artery disease and previous coronary artery bypass grafting as well as atrial septal defect repair. 3. New right bundle branch block. 4. History of past asymptomatic premature ventricular contractions. 5. History of profound anemia attributed to duodenal ulcer in 2014. RECOMMENDATIONS: heparin to coumadin. Pt had missed several doses of home medications including metoprolol and plavix due to nausea prior to presentation. Nausea has since resolved. Since rate elevated on home dose of metoprolol succinate 50 mg , will transition to metoprolol tartrate 25 mg PO Q 6 for now. Laboratory Results Last 24 Hours Test 05/04/16 15:50 05/04/16 18:14 05/04/16 21:07 05/04/16 22:16 Bedside Glucose 352 mg/dl 350 mg/dl Troponin I 0.025 ng/ml Activated Partial Thromboplast Time 120.4 SECONDS Partial Thromboplastin Ratio 4.6 Test 05/04/16 23:40 05/05/16 03:12 05/05/16 05:22 05/05/16 11:14 Troponin I 0.024 ng/ml Bedside Glucose 174 mg/dl 213 mg/dl White Blood Count 5.96 K/uL Red Blood Count 3.86 M/uL Hemoglobin 12.0 g/dL Hematocrit 35.0 % Mean Corpuscular Volume 90.7 fL Mean Corpuscular Hemoglobin 31.1 pg Mean Corpuscular Hemoglobin Concent 34.3 g/dl Platelet Count 252 K/uL Mean Platelet Volume 9.6 fL Neutrophils (%) (Auto) 81.8 % Lymphocytes (%) (Auto) 9.9 % Monocytes (%) (Auto) 6.9 % Eosinophils (%) (Auto) 1.0 % Basophils (%) (Auto) 0.2 % Neutrophils # (Auto) 4.88 K/uL Lymphocytes # (Auto) 0.59 K/uL Monocytes # (Auto) 0.41 K/uL Eosinophils # (Auto) 0.06 K/uL Basophils # (Auto) 0.01 K/uL RDW Standard Deviation 47.8 fL RDW Coefficient of Variation 14.4 % Immature Granulocyte % (Auto) 0.2 % Immature Granulocyte # (Auto) 0.01 K/uL Prothrombin Time 14.0 SECONDS Prothromb Time International Ratio 1.3 Activated Partial Thromboplast Time 60.2 SECONDS Partial Thromboplastin Ratio 2.3 Sodium Level 138 mmol/L Potassium Level 3.8 mmol/L Chloride Level 103 mmol/L Carbon Dioxide Level 26 mmol/L Anion Gap 9.0 mmol/L Blood Urea Nitrogen 11 mg/dl Creatinine 0.90 mg/dl Est Creatinine Clear Calc Drug Dose 50.0 ml/min Estimated GFR () 69.0 Estimated GFR (Non- 59.5 BUN/Creatinine Ratio 12.2 Random Glucose 189 mg/dl Estimated Average Glucose 160 mg/dl Hemoglobin A1c 7.2 % Calcium Level 7.8 mg/dl Test 05/05/16 15:01
--- NOTE | 2016-05-05 15:31 | CRITICAL CARE PROGRESS NOTE ---
DATE: 05/05/2016 DATE: 05/05/2016. GENERAL INFORMATION: This is an 80-year-old woman admitted to the intensive care unit yesterday after a left lower extremity embolectomy felt to be secondary to a cardiac thromboembolism. She remained on heparin overnight and was initially on Cardizem with an infusion. This was weaned off yesterday and she was started on Lopressor. Her care was discussed in detail on multidisciplinary rounds today. There were no acute events overnight, but she has been mild to moderately tachycardic. She is receiving p.r.n. Lopressor. Her nurse reports that she may be getting a little bit delirious. She has been acting a bit goofy and reported seeing bugs on the ceiling. She has not been agitated. OBJECTIVE: VITAL SIGNS: Maximum temperature 36.9, heart rate 100-120, respiratory rate 22-28, blood pressure 96-119/50s-80s, oxygen saturation 96% on room air. 24-hour fluid balance positive 3.1 liters. GENERAL: She is awake, alert and in no distress. She is very, very talkative. LUNGS: Have some bibasilar rales. No rhonchi or wheezes. HEART: Tachycardic, irregular. No murmurs. ABDOMEN: Obese, soft, nondistended, nontender. EXTREMITIES: Show the right leg to be slightly larger than the left and 1+ dorsalis pedis pulses. Capillary refill is adequate on both legs. There is no mottling. NEUROLOGIC: She follows commands and rolls in bed. She is generally weak. SKIN EXAMINATION: Shows an erythematous rash in her skin folds of her pannus as well as underneath her breasts. This is covered with some ointment. LABORATORY DATA: White blood cell count 5.96, hemoglobin 12, hematocrit 35, platelets 252. Sodium 138, potassium 3.8, chloride 103, CO2 26, BUN 11, creatinine 0.9, blood sugar 189, calcium 7.8, hemoglobin A1c 7.2, PTT 60.2. MEDICATIONS: Acetaminophen, Lumigan, vitamin D, Plavix, heparin infusion, NovoLog sliding scale insulin, Lantus, levothyroxine, Toprol XL, IV Lopressor, morphine, nystatin powder, Zofran, Percocet, Protonix, promethazine, Crestor, normal saline 50 mL per hour. Blood culture 05/04/2016 is pending. IMPRESSION: 1. Status post left lower extremity embolectomy secondary to presumed cardiac thromboembolism. 2. Atrial fibrillation with rapid ventricular response, she had been off her Plavix as well as her Lopressor for several days prior to admission. She is back on them now with some p.r.n. Lopressor. 3. Anemia without any signs of active bleeding. Her hemoglobin dropped from 14 to 12 overnight. 4. Acute kidney injury, improved. 5. Diabetes mellitus with hyperglycemia. 6. Liz infection in her skin folds, being seen by the wound care team. 7. History of hypertension. 8. History of coronary artery disease. PLAN: NEUROLOGIC: I will discontinue the morphine from her profile as she has not complained of any pain whatsoever. Watch for any signs of acute delirium. PULMONARY: Encourage deep breathing. No active or acute issues. CARDIOVASCULAR: Continue p.o. Lopressor and IV Lopressor p.r.n. The cardiology service is seeing her and I touched base with Dr. Burns today. Continue heparin infusion. Discontinue arterial line. Keep the left internal jugular triple lumen catheter that was placed in the operating room. GASTROINTESTINAL: Advance diet and provide GI prophylaxis. INFECTIOUS DISEASE: No acute active issues. RENAL: Replete the potassium and watch I's and O's. Discontinue IV fluids today. HEMATOLOGY: Repeat H\T\H this afternoon. Consider type and screen. MISCELLANEOUS: PT and OT were ordered. She has been transferred to [facility]. Please call me with any questions or concerns. MICHELLE
[2016-05-05 15:53] LABS: HEMATOCRIT 35.6 % (37-47)
[2016-05-05] MEDS: WARFARIN SOD 5 MG TAB PO SCH (16:49)
[2016-05-05] MEDS: HEPARIN 25,000 UNIT/500ML D5W 500 ML IV PRN (17:21)
[2016-05-05] MEDS: METOPROLOL TARTRATE 25 MG TAB PO SCH (18:18)
[2016-05-05] MEDS: BIMATOPROST 0.01% OP SOLN 2.5 ML BTL OPB SCH (19:37)
[2016-05-05] MEDS: ROSUVASTATIN CALCIUM 10 MG TAB PO SCH (19:37)
[2016-05-06] VITALS (7 sets, daily range): BP systolic 90–153; BP diastolic 48–73; PULSE 91–115; TEMP 36.6–37.5; O2SAT 91–96
[2016-05-06] MEDS: LEVOTHYROXINE 50 MCG TAB PO SCH ×2 (06:00→06:45)
[2016-05-06 06:45] LABS: HEMATOCRIT 33.3 % (37-47); MEAN CELL VOLUME 88.1 fL (80-100); MEAN CORPUSCULAR HEMOGLOBIN 30.4 pg (25-34); MEAN CORPUSCULAR HGB CONC 34.5 g/dl (32-36); MEAN PLATELET VOLUME 9.6 fL (7.4-10.4); PLATELET COUNT 232 K/uL (130-400); RED BLOOD COUNT 3.78 M/uL (4.2-5.4); WHITE BLOOD COUNT 4.99 K/uL (4.8-10.8)
[2016-05-06] MEDS: METOPROLOL TARTRATE 25 MG TAB PO SCH ×4 (06:45→17:36)
[2016-05-06 07:05] LABS: PARTIAL THROMBOPLASTIN RATIO 2.3
[2016-05-06 07:21] LABS: BUN/CREATININE RATIO 12.5 (10-20); CREATININE 0.92 mg/dl (0.60-1.20); POTASSIUM 3.7 mmol/L (3.5-5.1)
[2016-05-06] MEDS: CHOLECALCIFEROL 1000 INTER.UNIT TAB PO SCH (09:00)
[2016-05-06] MEDS: CLOPIDOGREL BISULFATE 75 MG TAB PO SCH (09:57)
[2016-05-06] MEDS: NYSTATIN POWDER 15GM BTL EXT SCH (09:58)
[2016-05-06] MEDS: PANTOprazole SOD 40 MG TAB PO SCH (09:58)
[2016-05-06] MEDS: INSULIN ASPART 100 UNITS/ML 3 ML PEN SC SCH ×4 (10:05→21:00)
[2016-05-06] MEDS: INSULIN GLARGINE SOLOSTAR 100 UNITS/ML 3 ML PEN SC SCH ×2 (10:06→21:00)
--- NOTE | 2016-05-06 10:25 | Progress Note ---
Progress Note Date of Service: May 06, 2016. Subjective No complaints today, Says she feels good Problem List Medical Problems: (1) Atrial fibrillation with RVR Status: Acute (2) Incarcerated incisional hernia Status: Acute (3) SBO (small bowel obstruction) Status: Acute (4) Thoracic compression fracture Status: Acute (5) Upper back pain on left side Status: Acute (6) UTI (urinary tract infection) Status: Acute Objective Vital Signs Vital Signs Past 12 Hours Date Time Temp Pulse Resp B/P Pulse Ox O2 Delivery O2 Flow Rate FiO2 05/06/16 08:15 36.8 108 20 102/60 93 Room Air 05/06/16 04:11 37.1 102 20 103/48 95 Room Air 05/06/16 04:00 Room Air 05/06/16 00:08 37.5 115 22 124/51 94 Room Air 05/06/16 00:01 Room Air Exam Incision clean and dry Good flow distally Intake & Output 8-Hour Column 05/05/16 05/05/16 05/06/16 15:59 23:59 07:59 Intake Total 275 ml 360 ml 262 ml Output Total 175 ml 250 ml 300 ml Balance 100 ml 110 ml -38 ml 24-Hour Column 05/06/16 07:59 Intake Total 897 ml Output Total 725 ml Balance 172 ml Laboratory and Microbiology Results Past 24 Hours Test 05/05/16 11:14 05/05/16 15:45 05/05/16 16:18 05/05/16 20:52 Range/Units Bedside Glucose 213 188 233 70-90 mg/dl Hemoglobin 12.1 12.0-16.0 g/dL Hematocrit 35.6 37-47 % Test 05/06/16 04:44 05/06/16 05:55 05/06/16 06:44 Range/Units White Blood Count 4.99 4.8-10.8 K/uL Red Blood Count 3.78 4.2-5.4 M/uL Hemoglobin 11.5 12.0-16.0 g/dL Hematocrit 33.3 37-47 % Mean Corpuscular Volume 88.1 80-100 fL Mean Corpuscular Hemoglobin 30.4 25-34 pg Mean Corpuscular Hemoglobin Concent 34.5 32-36 g/dl RDW Standard Deviation 46.9 36.4-46.3 fL RDW Coefficient of Variation 14.5 11.5-14.5 % Platelet Count 232 130-400 K/uL Mean Platelet Volume 9.6 7.4-10.4 fL Activated Partial Thromboplast Time 58.8 21.0-31.0 SECONDS Partial Thromboplastin Ratio 2.3 Sodium Level 133 136-145 mmol/L Potassium Level 3.7 3.5-5.1 mmol/L Chloride Level 101 98-107 mmol/L Carbon Dioxide Level 23 21-32 mmol/L Anion Gap 9.0 3-11 mmol/L Blood Urea Nitrogen 12 7-18 mg/dl Creatinine 0.92 0.60-1.20 mg/dl Est Creatinine Clear Calc Drug Dose 47.6 ml/min Estimated GFR () 67.2 Estimated GFR (Non- 58.0 BUN/Creatinine Ratio 12.5 10-20 Random Glucose 206 70-99 mg/dl Calcium Level 8.0 8.5-10.1 mg/dl Bedside Glucose 194 70-90 mg/dl Imp: Post LLE embolectomy Afib with rapid rate Plan: Continue as per medicine and cardiology. INR not therapeutic
--- NOTE | 2016-05-06 12:16 | Progress Note ---
Internal Med Progress Note Date of Service: May 06, 2016. Provider Documentation: SUBJECTIVE: Patient is doing well, having her lunch. Denies any pain, nausea, vomiting, fever, chills, chest pain, palpitations Tele- A fib with RVR with HR still in 110s OBJECTIVE: Vital Signs-as noted below Exam: General-AAOX3, no distress Neck-Supple, NO JVD Lungs-AEBE decreased, no wheezing, crackles Heart-Irregularly irregular rhythm Abdomen-Soft, non tender, non distended, BS present; COLOSTOMY BAG + Extremities-Left groin incision, tenderness +, Pulse- +, no edema, Feet deformities + bilaterally Lab data as noted below. ASSESSMENT & PLAN: Assessment & Plan : ACUTE LLE ISCHEMIA / EMBOLISM : Secondary to acute cardioembolic event as symptoms were sudden in onset -S/P Emergent embolectomy by Dr Hunter on 05/04/16 -S/P ICU monitoring -IV Heparin and started coumadin 5 mg on 05/05/16. Was not on anti coagulation prior to admission. INR monitoring -Mx per primary team ATRIAL FIBRILLATION WITH RVR HR Still in 110-120s -S/P IV Diltiazem drip in ICU -Was not taking Metoprolol for several days due to GI symptoms -Metoprolol 50 mg daily changed to 25 mg q 6 hours due to uncontrolled rate on per cardiology -IV Metoprolol 5 mg q 4 hours PRN for HR > 110 -Cardiology on board. CAD -Management per Cardiology. -Continue with Plavix, Rosuvastatin HISTORY OF UGI BLEED -On PPI for prophylaxis. NAUSEA / ANOREXIA Etiology uncertain. -PPI as noted above. -Monitor for signs of GI bleeding. DM TYPE 2 Usually well-controlled. -Hold glipizide during hospital stay. -Lantus / NovoLog per protocol. Blood glucose in range of 170s DVT PROPHYLAXIS On IV Heparin GI PROPHYLAXIS On protonix DISPOSITION Transferred from ICU to Tele floor today Vital Signs: Date Time Temp Pulse Resp B/P Pulse Ox O2 Delivery O2 Flow Rate FiO2 05/06/16 08:15 36.8 108 20 102/60 93 Room Air 05/06/16 04:11 37.1 102 20 103/48 95 Room Air 05/06/16 04:00 Room Air 05/06/16 00:08 37.5 115 22 124/51 94 Room Air 05/06/16 00:01 Room Air 05/05/16 20:00 Room Air 05/05/16 19:59 37.8 127 18 112/85 94 Room Air 05/05/16 19:41 127 112/85 05/05/16 16:00 94 Room Air 05/05/16 15:54 37.4 115 20 128/81 94 Room Air 05/05/16 14:06 135 05/05/16 14:06 96/65 Lab Results: Results Past 24 Hours Test 05/05/16 15:45 05/05/16 16:18 05/05/16 20:52 05/06/16 05:55 Range/Units Hemoglobin 12.1 11.5 12.0-16.0 g/dL Hematocrit 35.6 33.3 37-47 % Bedside Glucose 188 233 70-90 mg/dl White Blood Count 4.99 4.8-10.8 K/uL Red Blood Count 3.78 4.2-5.4 M/uL Mean Corpuscular Volume 88.1 80-100 fL Mean Corpuscular Hemoglobin 30.4 25-34 pg Mean Corpuscular Hemoglobin Concent 34.5 32-36 g/dl RDW Standard Deviation 46.9 36.4-46.3 fL RDW Coefficient of Variation 14.5 11.5-14.5 % Platelet Count 232 130-400 K/uL Mean Platelet Volume 9.6 7.4-10.4 fL Activated Partial Thromboplast Time 58.8 21.0-31.0 SECONDS Partial Thromboplastin Ratio 2.3 Sodium Level 133 136-145 mmol/L Potassium Level 3.7 3.5-5.1 mmol/L Chloride Level 101 98-107 mmol/L Carbon Dioxide Level 23 21-32 mmol/L Anion Gap 9.0 3-11 mmol/L Blood Urea Nitrogen 12 7-18 mg/dl Creatinine 0.92 0.60-1.20 mg/dl Est Creatinine Clear Calc Drug Dose 47.6 ml/min Estimated GFR () 67.2 Estimated GFR (Non- 58.0 BUN/Creatinine Ratio 12.5 10-20 Random Glucose 206 70-99 mg/dl Calcium Level 8.0 8.5-10.1 mg/dl Test 05/06/16 06:44 05/06/16 11:19 Range/Units Bedside Glucose 194 241 70-90 mg/dl
--- NOTE | 2016-05-06 13:34 | CARDIOLOGY PROGRESS NOTE ---
DATE: 05/06/2016 DATE: 05/06/2016. SUBJECTIVE: The patient is seen and examined at the bedside. Her heart rate has improved. Average heart rate currently high 90s to low 100s. She is unaware of her rapid heart rate. Her Toprol-XL 50 mg was transitioned to metoprolol tartrate 25 mg q. 6 last evening. Her INR was not assessed today. Heparin drip is infusing at this time. The patient denies any leg discomfort. No chest pain or unusual shortness of breath. Denies lightheadedness, dizziness, focal weakness, slurred speech or visual changes. Tolerating current meds and diet. Offers no other complaints at this time. REVIEW OF SYSTEMS: The pertinent positives noted above, a 4-system review is otherwise negative. MEDICATIONS: Reviewed via EMR. Please see list for details. LABORATORY DATA: Sodium 133, potassium 3.7, chloride is 101, CO2 is 23, BUN is 12, creatinine is 0.92. White blood cell count 4.99, hemoglobin is 11.5, platelet count is 232. PHYSICAL EXAMINATION: VITAL SIGNS: Temperature is 37.2 degrees centigrade, pulse is 98 beats per minute and irregular, respiratory rate is 20 breaths per minute, blood pressure 90/64, SAO2 is 92% on room air. GENERAL: NAD, obese, awake, alert and oriented x3. HEAD, EYES, EARS, NOSE, AND THROAT: Mucous membranes moist. No scleral icterus. Conjunctivae pink. NECK: Supple without JVD or HJR. No carotid bruit. HEART: Irregular with a normal S1, S2. No murmur, rub or gallop. LUNGS: Clear without rales, rhonchi or wheeze. ABDOMEN: Soft, nontender. No rebound or guarding. EXTREMITIES: Warm and dry with trace pedal edema. NEUROLOGIC EXAMINATION: Demonstrates no focal deficit. FINAL IMPRESSION: 1. An 80-year-old female admitted with left lower extremity ischemia secondary to cardioembolic phenomenon. 2. New onset atrial fibrillation with rapid ventricular response -- rates improved today; however remain mildly elevated. 3. History of coronary artery disease and previous coronary artery bypass grafting and atrial septal defect repair. 4. Right bundle branch block. 5. History of asymptomatic premature ventricular contractions. 6. History of profound anemia attributed to duodenal ulcer in 2013. PLAN AND RECOMMENDATIONS: I have ordered a repeat INR. Intravenous heparin will be continued as a bridge to oral Coumadin. Her goal INR 2.0-3.0. Will continue Plavix at this time. I will also continue her metoprolol tartrate 25 q. 6. We will continue to follow heart rates closely and consider titration of metoprolol in the next 24-48 hours. Repeat INR will be performed daily. Other cardiovascular medications will be continued as previously ordered.
[2016-05-06 14:30] LABS: INR 1.5 (0.9-1.1); PROTHROMBIN TIME (PATIENT) 15.9 SECONDS (9.0-12.0)
[2016-05-06] MEDS: WARFARIN SOD 5 MG TAB PO SCH (17:33)
[2016-05-06] MEDS: HEPARIN 25,000 UNIT/500ML D5W 500 ML IV PRN (18:33)
[2016-05-06] MEDS: ROSUVASTATIN CALCIUM 10 MG TAB PO SCH (19:57)
[2016-05-06] MEDS: BIMATOPROST 0.01% OP SOLN 2.5 ML BTL OPB SCH (19:58)
[2016-05-06] MEDS: METOPROLOL TARTRATE 1 MG/ML VIAL IV PRN (22:43)
[2016-05-07] VITALS (12 sets, daily range): BP systolic 92–131; BP diastolic 62–84; PULSE 97–134; TEMP 36.6–37.1; O2SAT 94–97
[2016-05-07 05:46] LABS: BUN/CREATININE RATIO 13.1 (10-20); CALCIUM 7.8 mg/dl (8.5-10.1); CREATININE 1.1 mg/dl (0.60-1.20); POTASSIUM 4.2 mmol/L (3.5-5.1)
[2016-05-07] MEDS: METOPROLOL TARTRATE 25 MG TAB PO SCH ×2 (06:25)
[2016-05-07] MEDS: LEVOTHYROXINE 50 MCG TAB PO SCH (06:25)
[2016-05-07 07:45] LABS: INR 1.8 (0.9-1.1); PARTIAL THROMBOPLASTIN RATIO 2.6; PROTHROMBIN TIME (PATIENT) 20.1 SECONDS (9.0-12.0)
[2016-05-07] MEDS: PANTOprazole SOD 40 MG TAB PO SCH (08:02)
[2016-05-07] MEDS: CLOPIDOGREL BISULFATE 75 MG TAB PO SCH (08:03)
[2016-05-07] MEDS: INSULIN ASPART 100 UNITS/ML 3 ML PEN SC SCH ×4 (08:05→21:03)
[2016-05-07] MEDS: INSULIN GLARGINE SOLOSTAR 100 UNITS/ML 3 ML PEN SC SCH ×2 (08:06→21:03)
[2016-05-07] MEDS: NYSTATIN POWDER 15GM BTL EXT SCH (08:07)
--- NOTE | 2016-05-07 09:06 | Progress Note ---
Progress Note Date of Service: May 07, 2016. Subjective No complaints. Voiding spontaneously without problem. Problem List Medical Problems: (1) Atrial fibrillation with RVR Status: Acute (2) Incarcerated incisional hernia Status: Acute (3) SBO (small bowel obstruction) Status: Acute (4) Thoracic compression fracture Status: Acute (5) Upper back pain on left side Status: Acute (6) UTI (urinary tract infection) Status: Acute Objective Vital Signs Vital Signs Past 12 Hours Date Time Temp Pulse Resp B/P Pulse Ox O2 Delivery O2 Flow Rate FiO2 05/07/16 07:14 36.6 97 20 126/77 97 Room Air 05/07/16 04:21 36.6 105 18 114/71 95 Room Air 05/07/16 04:14 Room Air 05/07/16 00:26 127/71 05/07/16 00:01 Room Air 05/06/16 23:58 37.2 115 20 98/63 94 Room Air 05/06/16 22:43 125 105/80 Exam Left foot with good doppler. Foot normal color and warm. Incision dry and intact. Skin erythema slowly improving Intake & Output 8-Hour Column 05/06/16 05/07/16 05/07/16 16:00 00:00 08:00 Intake Total 368 ml 864 ml 160 ml Output Total 450 ml 250 ml 300 ml Balance -82 ml 614 ml -140 ml 24-Hour Column 05/07/16 08:00 Intake Total 1392 ml Output Total 1000 ml Balance 392 ml Laboratory and Microbiology Results Past 24 Hours Test 05/06/16 11:19 05/06/16 16:04 05/06/16 20:18 05/07/16 05:03 Range/Units Bedside Glucose 241 133 175 70-90 mg/dl Prothrombin Time 20.1 9.0-12.0 SECONDS Prothromb Time International Ratio 1.8 0.9-1.1 Activated Partial Thromboplast Time 67.1 21.0-31.0 SECONDS Partial Thromboplastin Ratio 2.6 Sodium Level 138 136-145 mmol/L Potassium Level 4.2 3.5-5.1 mmol/L Chloride Level 102 98-107 mmol/L Carbon Dioxide Level 27 21-32 mmol/L Anion Gap 9.0 3-11 mmol/L Blood Urea Nitrogen 14 7-18 mg/dl Creatinine 1.10 0.60-1.20 mg/dl Est Creatinine Clear Calc Drug Dose 39.8 ml/min Estimated GFR () 54.1 Estimated GFR (Non- 46.7 BUN/Creatinine Ratio 13.1 10-20 Random Glucose 243 70-99 mg/dl Calcium Level 7.8 8.5-10.1 mg/dl Test 05/07/16 06:47 Range/Units Bedside Glucose 212 70-90 mg/dl Imp: Post embolectomy Plan: INR 1.8 today. Will probably be therapeutic tomorrow and then can D/C the heparin drip HR still ranging between 90's and 120's. Patient can be d/c when INR therapeutic and HR acceptable to cardiology.
--- NOTE | 2016-05-07 09:40 | Progress Note ---
Internal Med Progress Note Date of Service: May 07, 2016. Provider Documentation: SUBJECTIVE: Patient is doing well. Denies any pain, nausea, vomiting, fever, chills, chest pain, palpitations Tele- A fib with RVR with HR 100-110s OBJECTIVE: Vital Signs-as noted below Exam: General-AAOX3, no distress Neck-Supple, NO JVD Lungs-AEBE decreased, no wheezing, crackles Heart-Irregularly irregular rhythm Abdomen-Soft, non tender, non distended, BS present; COLOSTOMY BAG + Extremities-Left groin incision, tenderness +, Pulse- +, no edema, Feet deformities + bilaterally Lab data as noted below. ASSESSMENT & PLAN: Assessment & Plan : ACUTE LLE ISCHEMIA / EMBOLISM : Secondary to acute cardioembolic event as symptoms were sudden in onset -S/P Emergent embolectomy by Dr Hunter on 05/04/16 -S/P ICU monitoring -IV Heparin and started coumadin 5 mg on 05/05/16. Was not on anti coagulation prior to admission. INR monitoring. -Mx per primary team ATRIAL FIBRILLATION WITH RVR HR Still in 100-110s -S/P IV Diltiazem drip in ICU -Was not taking Metoprolol for several days due to GI symptoms -Metoprolol 50 mg daily changed to 25 mg q 6 hours due to uncontrolled rate on per cardiology -IV Metoprolol 5 mg q 4 hours PRN for HR > 110 -Cardiology on board. CAD -Management per Cardiology. -Continue with Plavix, Rosuvastatin HISTORY OF UGI BLEED -On PPI for prophylaxis. NAUSEA / ANOREXIA Etiology uncertain. -PPI as noted above. -Monitor for signs of GI bleeding. DM TYPE 2 Usually well-controlled. -Hold glipizide during hospital stay. -Lantus / NovoLog per protocol. Blood glucose in range of 170s DVT PROPHYLAXIS On IV Heparin GI PROPHYLAXIS On protonix DISPOSITION Continue with tele monitoring Awaiting INR to be therapeutic, A fib rate control Vital Signs: Date Time Temp Pulse Resp B/P Pulse Ox O2 Delivery O2 Flow Rate FiO2 05/07/16 07:14 36.6 97 20 126/77 97 Room Air 05/07/16 04:21 36.6 105 18 114/71 95 Room Air 05/07/16 04:14 Room Air 05/07/16 00:26 127/71 05/07/16 00:01 Room Air 05/06/16 23:58 37.2 115 20 98/63 94 Room Air 05/06/16 22:43 125 105/80 05/06/16 20:00 Room Air 05/06/16 19:59 36.6 111 18 153/73 96 Room Air 05/06/16 16:56 Room Air 05/06/16 15:10 37.4 91 19 110/69 91 Room Air 05/06/16 13:02 37.2 105 23 90/64 92 Room Air 05/06/16 12:00 Room Air Lab Results: Results Past 24 Hours Test 05/06/16 11:19 05/06/16 16:04 05/06/16 20:18 05/07/16 05:03 Range/Units Bedside Glucose 241 133 175 70-90 mg/dl Prothrombin Time 20.1 9.0-12.0 SECONDS Prothromb Time International Ratio 1.8 0.9-1.1 Activated Partial Thromboplast Time 67.1 21.0-31.0 SECONDS Partial Thromboplastin Ratio 2.6 Sodium Level 138 136-145 mmol/L Potassium Level 4.2 3.5-5.1 mmol/L Chloride Level 102 98-107 mmol/L Carbon Dioxide Level 27 21-32 mmol/L Anion Gap 9.0 3-11 mmol/L Blood Urea Nitrogen 14 7-18 mg/dl Creatinine 1.10 0.60-1.20 mg/dl Est Creatinine Clear Calc Drug Dose 39.8 ml/min Estimated GFR () 54.1 Estimated GFR (Non- 46.7 BUN/Creatinine Ratio 13.1 10-20 Random Glucose 243 70-99 mg/dl Calcium Level 7.8 8.5-10.1 mg/dl Test 05/07/16 06:47 Range/Units Bedside Glucose 212 70-90 mg/dl
[2016-05-07] MEDS: CHOLECALCIFEROL 1000 INTER.UNIT TAB PO SCH (11:42)
--- NOTE | 2016-05-07 11:43 | Cardiology Follow-Up ---
Subjective General Date of Service: May 07, 2016. Chief Complaint: follow up atrial fibrillation Pt evaluation today including: conversation w/ patient, conversation w/ family , physical exam, chart review, lab review, review of studies, review of inpatient medication list History of Present Illness The patient is a 80 year old female seen in follow up. Received an additional dose of IV lopressor overnight. Average heart rate 100-110 BPM at rest. No CP or SOB. Allergies Coded Allergies: Iodine (Verified Allergy, Intermediate, ITCHING, 04/16/09) Lisinopril (Verified Allergy, Unknown, 04/16/09) Sulfa Antibiotics (Verified Allergy, Unknown, ITCHING, 08/12/15) MD STATES LISINOPRIL & IODINE ALLERGIES, ER STATES IODINE & SULFA--PT TOO LETHARGIC TO VERIFY Social History Smoking Status: Never Smoker Hx Tobacco Use In Past Year?: No Hx Alcohol Use - Type And Amou: No Hx Substance Use - Type And Am: No Problem List Medical Problems: (1) Atrial fibrillation with RVR Status: Acute (2) Incarcerated incisional hernia Status: Acute (3) SBO (small bowel obstruction) Status: Acute (4) Thoracic compression fracture Status: Acute (5) Upper back pain on left side Status: Acute (6) UTI (urinary tract infection) Status: Acute Review of Systems Respiratory: No cough, No dyspnea at rest, No dyspnea on exertion, No hemoptysis, No shortness of breath, No sputum, No wheezing Cardiac: + edema, No PND, No chest pain, No claudication, No orthopnea, No palpitations Physical Exam Vital Signs Last Vital Signs Documentation Date Time Temp Pulse Resp B/P Pulse Ox O2 Delivery O2 Flow Rate FiO2 05/07/16 08:00 Room Air 05/07/16 07:14 36.6 97 20 126/77 97 05/04/16 16:00 50 05/04/16 16:00 2.0 Physical Exam Constitutional: General Apperance: heathly-appearing, well-nourished, well-developed Level of Distress: moderate distress Ambulation: limited ambulation Psychiatric: Mental Status: active & alert Head: normocephalic ENMT: normal ENT inspection, hearing grossly normal Neck: supple Lungs: Auscultation: breath sounds normal Cardiovascular: Heart Auscultation: normal S1, normal S2, tachycardia, irregular rate rhythm Peripheral Pulses: Carotid Pulse: normal on the left, normal on the right Abdomen: Bowel Sounds: normal Inspection & Palpation: soft, non-distended, no tenderness, guarding & rebound Musculoskeletal: normal Extremities: no edema Neurologic: Cranial Nerves: grossly intact Sensation: pertinent finding Assessment and Plan Assessment and Plan FINAL IMPRESSION: 1. An 80-year-old female admitted with left lower extremity ischemia secondary to cardioembolic phenomenon. 2. New onset atrial fibrillation with rapid ventricular response 3. History of coronary artery disease and previous coronary artery bypass grafting and atrial septal defect repair. 4. Right bundle branch block. 5. History of asymptomatic premature ventricular contractions. 6. History of profound anemia attributed to duodenal ulcer in 2013. PLAN AND RECOMMENDATIONS: Increase metoprolol to 50mg TID. Continue IV heparin bridging until INR > 2.0. Continue other medications as previous ordered. Follow telemetry. Laboratory Results Last 24 Hours Test 05/06/16 16:04 05/06/16 20:18 05/07/16 05:03 05/07/16 06:47 Bedside Glucose 133 mg/dl 175 mg/dl 212 mg/dl Prothrombin Time 20.1 SECONDS Prothromb Time International Ratio 1.8 Activated Partial Thromboplast Time 67.1 SECONDS Partial Thromboplastin Ratio 2.6 Sodium Level 138 mmol/L Potassium Level 4.2 mmol/L Chloride Level 102 mmol/L Carbon Dioxide Level 27 mmol/L Anion Gap 9.0 mmol/L Blood Urea Nitrogen 14 mg/dl Creatinine 1.10 mg/dl Est Creatinine Clear Calc Drug Dose 39.8 ml/min Estimated GFR () 54.1 Estimated GFR (Non- 46.7 BUN/Creatinine Ratio 13.1 Random Glucose 243 mg/dl Calcium Level 7.8 mg/dl Test 05/07/16 11:05 Bedside Glucose 206 mg/dl
[2016-05-07] MEDS: METOPROLOL TARTRATE 50 MG TAB PO SCH ×2 (16:00→20:55)
[2016-05-07] MEDS: WARFARIN SOD 5 MG TAB PO SCH (16:01)
[2016-05-07] MEDS: HEPARIN 25,000 UNIT/500ML D5W 500 ML IV PRN (20:49)
[2016-05-07] MEDS: ROSUVASTATIN CALCIUM 10 MG TAB PO SCH (20:52)
[2016-05-07] MEDS: BIMATOPROST 0.01% OP SOLN 2.5 ML BTL OPB SCH (20:52)
[2016-05-08 03:48] VITALS: BP 131/84; PULSE 114; TEMP 36.6; O2SAT 93
[2016-05-08] MEDS: LEVOTHYROXINE 50 MCG TAB PO SCH (05:25)
[2016-05-08 06:46] LABS: INR 2.1 (0.9-1.1); PROTHROMBIN TIME (PATIENT) 23.6 SECONDS (9.0-12.0)
[2016-05-08 07:58] LABS: PARTIAL THROMBOPLASTIN RATIO 3.1
[2016-05-08] MEDS: INSULIN ASPART 100 UNITS/ML 3 ML PEN SC SCH ×4 (08:15→20:07)
[2016-05-08] MEDS: INSULIN GLARGINE SOLOSTAR 100 UNITS/ML 3 ML PEN SC SCH ×2 (08:15→20:08)
[2016-05-08] MEDS: PANTOprazole SOD 40 MG TAB PO SCH (08:16)
[2016-05-08] MEDS: CLOPIDOGREL BISULFATE 75 MG TAB PO SCH (08:17)
[2016-05-08] MEDS: METOPROLOL TARTRATE 50 MG TAB PO SCH (08:17)
[2016-05-08] MEDS: NYSTATIN POWDER 15GM BTL EXT SCH (08:18)
--- NOTE | 2016-05-08 09:14 | Progress Note ---
Progress Note Date of Service: May 08, 2016. Subjective 80 yo f with hx CAD, HTN, colostomy, gastric ulcer, s/p LLE embolectomy with patch, also with rapid a fib, seen in f/u today. Pt states feeling well. Mild discomfort in L groin incision with ambulation. No leg/foot pain. No new complaints. States is planning to go home with home nursing. Problem List Medical Problems: (1) Atrial fibrillation with RVR Status: Acute (2) Incarcerated incisional hernia Status: Acute (3) SBO (small bowel obstruction) Status: Acute (4) Thoracic compression fracture Status: Acute (5) Upper back pain on left side Status: Acute (6) UTI (urinary tract infection) Status: Acute Objective Vital Signs Vital Signs Past 12 Hours Date Time Temp Pulse Resp B/P Pulse Ox O2 Delivery O2 Flow Rate FiO2 05/08/16 04:00 Room Air 05/08/16 03:48 36.6 114 20 131/84 93 Room Air 05/07/16 23:59 Room Air 05/07/16 23:46 37.0 100 20 106/84 95 Room Air Exam CONST: A&O x4, NAD, obese, mildly chronically ill appearing female CHEST: Irregular, lungs decreased, but ctab ABD: colostomy noted. soft, nontender, + bs x 4 quad EXT: L groin incision C/D/I with raudel. Mild local tenderness and old ecchymosis. No erythema. Foot + doppler pulses. [place] and warm Intake & Output 8-Hour Column 05/07/16 05/07/16 05/08/16 15:59 23:59 07:59 Intake Total 220 ml 607 ml 356 ml Output Total 650 ml 250 ml 400 ml Balance -430 ml 357 ml -44 ml 24-Hour Column 05/08/16 07:59 Intake Total 1183 ml Output Total 1300 ml Balance -117 ml Laboratory and Microbiology Results Past 24 Hours Test 05/07/16 11:05 05/07/16 16:16 05/07/16 20:07 05/08/16 06:10 Range/Units Bedside Glucose 206 222 212 70-90 mg/dl Prothrombin Time 23.6 9.0-12.0 SECONDS Prothromb Time International Ratio 2.1 0.9-1.1 Activated Partial Thromboplast Time 80.7 21.0-31.0 SECONDS Partial Thromboplastin Ratio 3.1 Test 05/08/16 06:33 Range/Units Bedside Glucose 169 70-90 mg/dl ASSESSMENT and PLAN: s/p LLE embolectomy with patch Acute LLE arterial embolism Rapid A fib Pt doing well post op. Remains tachycardic 120-130. Discussed with cardiology. INR therapeutic at 2.1. Continue to monitor.
--- NOTE | 2016-05-08 09:40 | PROGRESS NOTE ---
DATE: 05/08/2016 CARDIOLOGY CONSULTATION FOLLOWUP NOTE The patient seen and examined. Chart, medications, telemetry reviewed. SUBJECTIVE: The patient notes no overt complaints this morning. Only minor surgical site tenderness. Notes no chest pain, shortness of breath, orthopnea. She is not aware of any tachypalpitations despite elevated heart rate. Notes no fevers or chills. OBJECTIVE: VITAL SIGNS: Heart rate is 110-130, the patient in atrial fibrillation. Telemetry reveals no pauses or bradyarrhythmias. NECK: Notable for a central venous catheter. LUNGS: Clear to auscultation. CARDIOVASCULAR: Irregularly irregular There is no S3, gallop. ABDOMEN: Soft. EXTREMITIES: Without cyanosis or clubbing. There is trace peripheral edema. Left groin incisions notable [address] No surrounding erythema. DATA: Telemetry as described atrial fibrillation with rapid ventricular response. LABORATORY STUDIES: INR is 2.1 this morning. chloride is 102, bicarbonate is 27, BUN is 14, creatinine is 1.1, laboratory studies from day prior. IMPRESSION: An 80-year-old female with issues as follows: 1. Acute left leg ischemia secondary to thromboembolism, status post left lower extremity embolectomy. 2. Atrial fibrillation with rapid ventricular response with difficult to control rates despite current therapies. 3. History of atherosclerotic coronary artery disease, status post coronary artery bypass grafting and atrial septal defect repair. RECOMMENDATIONS: Will increase metoprolol to 100 mg twice per day, add digoxin single dose of IV this morning and then switch to oral this afternoon. Ultimate goals will be further rate control. Echocardiogram will be ordered for a.m. to reassess LV function , once rate slowed, would discontinue IV heparin later today and continue oral anticoagulation chronically. [facility]
[2016-05-08] MEDS ORDERED: DIGOXIN IV 250 MCG in SYRINGE 9 ML IV ONE (09:45)
[2016-05-08] MEDS ORDERED: METOPROLOL TARTRATE 50 MG TAB PO ONE (10:00)
--- NOTE | 2016-05-08 10:08 | Progress Note ---
Internal Med Progress Note Date of Service: May 08, 2016. Provider Documentation: SUBJECTIVE: Patient is doing well. Denies any pain, nausea, vomiting, fever, chills, chest pain, palpitations Tele- A fib with RVR with HR 110-120s still OBJECTIVE: Vital Signs-as noted below Exam: General-AAOX3, no distress Neck-Supple, NO JVD Lungs-AEBE decreased, no wheezing, crackles Heart-Irregularly irregular rhythm Abdomen-Soft, non tender, non distended, BS present; COLOSTOMY BAG + Extremities-Left groin incision, tenderness +, Pulse- +, no edema, Feet deformities + bilaterally Lab data as noted below. ASSESSMENT & PLAN: Assessment & Plan : ACUTE LLE ISCHEMIA / EMBOLISM : Secondary to acute cardioembolic event as symptoms were sudden in onset -S/P Emergent embolectomy by Dr Hunter on 05/04/16 -S/P ICU monitoring -IV Heparin and started coumadin 5 mg on 05/05/16. Was not on anti coagulation prior to admission. INR monitoring. -Mx per primary team ATRIAL FIBRILLATION WITH RVR HR Still in 110-120s -S/P IV Diltiazem drip in ICU -Was not taking Metoprolol for several days due to GI symptoms -Metoprolol 50 mg daily changed to 25 mg q 6 hours due to uncontrolled rate on per cardiology. Today increased to 100 mg PO BID, Digoxin x 1 dose IV followed by plans to change it to PO . -IV Metoprolol 5 mg q 4 hours PRN for HR > 110 -IV Heparin/Coumadin. INR 2.1. Ok to discontinue IV Heparin later today once HR slows down -Echo ordered today per cardiology -Cardiology on board. Appreciate inputs CAD -Management per Cardiology. -Continue with Plavix, Rosuvastatin HISTORY OF UGI BLEED -On PPI for prophylaxis. NAUSEA / ANOREXIA Etiology uncertain. -PPI as noted above. -Monitor for signs of GI bleeding. DM TYPE 2 Usually well-controlled. -Hold glipizide during hospital stay. -Lantus / NovoLog per protocol. Blood glucose in range of 170s DVT PROPHYLAXIS On IV Heparin GI PROPHYLAXIS On protonix DISPOSITION Continue with tele monitoring Awaiting A fib rate control Vital Signs: Date Time Temp Pulse Resp B/P Pulse Ox O2 Delivery O2 Flow Rate FiO2 05/08/16 04:00 Room Air 05/08/16 03:48 36.6 114 20 131/84 93 Room Air 05/07/16 23:59 Room Air 05/07/16 23:46 37.0 100 20 106/84 95 Room Air 05/07/16 20:45 113 107/70 05/07/16 20:00 97 Room Air 05/07/16 19:20 36.9 114 19 100/62 97 Room Air 05/07/16 16:15 94 Room Air 05/07/16 15:59 124 128/78 05/07/16 15:58 36.7 134 22 128/78 94 Nasal Cannula 05/07/16 12:01 37.1 115 28 92/63 94 Room Air 05/07/16 12:00 Room Air Lab Results: Results Past 24 Hours Test 05/07/16 11:05 05/07/16 16:16 05/07/16 20:07 05/08/16 06:10 Range/Units Bedside Glucose 206 222 212 70-90 mg/dl Prothrombin Time 23.6 9.0-12.0 SECONDS Prothromb Time International Ratio 2.1 0.9-1.1 Activated Partial Thromboplast Time 80.7 21.0-31.0 SECONDS Partial Thromboplastin Ratio 3.1 Test 05/08/16 06:33 Range/Units Bedside Glucose 169 70-90 mg/dl
[2016-05-08] MEDS: CHOLECALCIFEROL 1000 INTER.UNIT TAB PO SCH (10:36)
[2016-05-08 11:13] VITALS: BP 104/72; PULSE 123; TEMP 37.1; O2SAT 96
[2016-05-08] MEDS ORDERED: PERFLUTREN LIPID MICROSPHERE (DEFINITY) IV ONE (11:28)
--- NOTE | 2016-05-08 13:31 | Pharmacy Progress Note ---
Glycemic Control: Initial Note Date of Service May 08, 2016. Scope Glycemic Pharmacist to provide recommendations to improve glycemic control (all ICU patients are screened for hyperglycemia and treatment recommendations are provided per protocol). Pt identified with hyperglycemia (BSG above 180) while admitted to [facility] ([facility]). Subjective The patient is a 80 year old female admitted on May 04, 2016 at 11:51 for acute LLE ischemia secondary to embolism. Patient's past medical history is significant for type 2 diabetes mellitus. Objective Height (Feet): 5 Height (Inches): 2.00 Weight (Kilograms): 91.100 Accuchecks BSG (last 24hrs): Test 05/07/16 16:16 05/07/16 20:07 05/08/16 06:33 05/08/16 11:11 Bedside Glucose 222 mg/dl (70-90) 212 mg/dl (70-90) 169 mg/dl (70-90) 203 mg/dl (70-90) Recent Pertinent Medications Outpatient Anti-diabetic Regimen: * NPH 15-20 units Q HS * Novolog per sliding scale * Glipizide ER 10mg PO BID * A1c = 7.2% 05/05/16 The patient is currently receiving: * Basal Insulin: Lantus 10 units every 12 hours * Correctional Insulin: Novolog Correction per scale ACHS Goal Range: Low 140 mg/dL - High 180 mg/dL Correction Factor: 40 mg/dL/unit * Prandial Insulin: Per carb ratio of 1 unit per 20 grams CHO consumed * Oral Agents: None Risk Factors for Insulin Resistance: * IVF: Heparin gtt mixed in D5W * Diet: ordered T2DM / AHA diet; tolerating diet per carb counts Assessment & Plan ASSESSMENT: 05/08/16 * BSGs have ranged 169-222 over the last 24 hrs; most BSGs in the range of 200- 222 * Current BSG pattern suggests basal insulin deficiency. The current dose of Lantus began on 05/04 PM and fasting BSGs are likely reflective of steady-state on the current dose. Would recommend increasing the Lantus dose at this time * Post prandial BSG rise is limited with the use of the current CR, however a slightly higher dose may help achieve better control - likely will only require one or two additional units w/ meals RECOMMEND: * Increasing Lantus to 12 units SQ BID * Changing correction factor to 35 mg/dl/unit * Changing carb ratio to 1 unit per 15 grams CHO consumed * Changing goal range to Low 110 mg/dL - High 140 mg/dL Pharmacy will continue to provide recommendations in EMR while patient admitted to 1E/2E. Physicians may request pharmacy to continue to follow patient when transferred out of the ICU and/or consult pharmacy to write glycemic control orders * Please note that the plan above was derived based on current level of insulin resistance and hospital stress. These recommendations are appropriate for inpatient admission only. Plan of care upon discharge will need to be reassessed to avoid potential outpatient hypo/hyperglycemia. Thank you.
[2016-05-08 15:19] VITALS: BP 116/79; PULSE 91; TEMP 37; O2SAT 97
[2016-05-08 15:54] LABS: PARTIAL THROMBOPLASTIN RATIO 2.1
--- NOTE | 2016-05-08 15:55 | ECHOCARDIOGRAM REPORT ---
*NOTICE TO RECEIVING DEMOCRAT AGENCY This information is strictly Confidential and protected under [place] law. [place] law prohibits you from making any further disclosure of this information unless further disclosure is expressly permitted by the written consent of the person to whom it pertains or is authorized by law. A general authorization for the release of medical or other information is not sufficient for this purpose. Hospital accepts no responsibility if the information is made available to any other person, INCLUDING THE PATIENT. Interpretation Summary * Name: JESSICA BEDOYA Study Date: 05/08/2016 11:57 AM BP: 104/72 mmHg * Patient Location: [facility] HR: 101 * : 1935 (M/d/yyyy) Gender: Female Height: 62 in * Age: 80 yrs Ethnicity: [place] Weight: 200 lb * Ordering Physician: Daniel Reddy MD, [facility] * Referring Physician: Self, Referred * Performed By: Sandy Barrientos [facility] * * Reason For Study: A-FIB * BSA: 1.9 m2 * The study was technically limited. * The study was technically difficult. * Compared to prior study, changes are noted. * -- Conclusions -- * Ejection Fraction = 55-60%. * There is mild concentric left ventricular hypertrophy. * The basal septum is thickened and angulated consistent with sigmoid septum. * The left atrium is severely dilated. * There is severe mitral annular calcification. * There is mild mitral stenosis. Procedure Details * A complete two-dimensional transthoracic echocardiogram was performed (2D, M-mode, Doppler and color flow Doppler). * A contrast injection of Definity was performed to improve assessment of LV function. * Contrast was injected into an intravenous site in the right arm. * One vial of Definity ultrasound contrast was diluted in normal saline to a total volume of 10 ml. A total of '4' ml of solution was administered during imaging. * Lot # [id number] of Definity utilized for procedure. * Expiration date MAR 29. * The attending nurse who injected the contrast agent was BETH HARLEY, GEORGE. Left Ventricle * The left ventricle is normal in size. * The rhythm is atrial fibrillation. * There is mild concentric left ventricular hypertrophy. * The basal septum is thickened and angulated consistent with sigmoid septum. * Left ventricular systolic function is normal. * Ejection Fraction = 55-60%. * No regional wall motion abnormalities noted. Right Ventricle * The right ventricle is grossly normal size. * The right ventricular systolic function is normal as assessed by tricuspid annular plane systolic excursion (TAPSE) (normal >1.5 cm). Atria * The left atrium is severely dilated. * Right atrial size is normal. * There is no evidence of atrial septal defect, but resolution does not allow assessment for a patent foramen ovale. Mitral Valve * There is severe mitral annular calcification. * There is mild mitral stenosis. * There is trace mitral regurgitation. Tricuspid Valve * The tricuspid valve is normal. * There is no tricuspid stenosis. * Significant tricuspid regurgitation is absent. Aortic Valve * The aortic valve is not well visualized. * Aortic valve sclerosis mild, without significant aortic valvular stenosis. * Aortic stenosis is absent. * There is no significant aortic regurgitation. Pulmonic Valve * The pulmonary valve is not well seen, but the Doppler examination is normal without significant regurgitation or stenosis. Great Vessels * The aortic root and proximal ascending aorta are normal sized. Pericardium/Pleural * There is no pericardial effusion. Great Vessels * Normal inferior vena cava size and collapsability with sniff indicates a normal right atrial pressure of 3 mmHg Left Ventricular Diastolic Function * Pulse wave TDI of the anterior and posterior mitral annulas demonstrates abnormal LV relaxation MMode 2D Measurements and Calculations IVSd 1.7 cm IVSs 2.2 cm LVIDd 4.6 cm LVIDs 3.9 cm LVPWd 1.2 cm LVPWs 1.6 cm IVS/LVPW 1.4 FS 14.9 % EDV(Teich) 98.3 ml ESV(Teich) 67.2 ml EF(Teich) 31.6 % EDV(cubed) 98.6 ml ESV(cubed) 60.8 ml EF(cubed) 38.3 % % IVS thick 29.1 % % LVPW thick 38.2 % LV mass(C)d 267.0 grams LV mass(C)dI 139.7 grams/m\S\2 LV mass(C)s 335.2 grams LV mass(C)sI 175.3 grams/m\S\2 SV(Teich) 31.1 ml SI(Teich) 16.3 ml/m\S\2 SV(cubed) 37.8 ml SI(cubed) 19.8 ml/m\S\2 Ao root diam 3.9 cm Ao root area 11.7 cm\S\2 ACS 1.9 cm LVOT diam 2.0 cm LVOT area 3.2 cm\S\2 LVAd ap4 27.0 cm\S\2 LVLd ap4 7.7 cm EDV(MOD-sp4) 77.0 ml EDV(sp4-el) 80.1 ml LVAs ap4 21.5 cm\S\2 LVLs ap4 7.6 cm ESV(MOD-sp4) 50.2 ml ESV(sp4-el) 51.4 ml EF(MOD-sp4) 34.8 % EF(sp4-el) 35.8 % LVAd ap2 30.5 cm\S\2 LVLd ap2 7.8 cm EDV(MOD-sp2) 100.4 ml EDV(sp2-el) 100.9 ml LVAs ap2 22.8 cm\S\2 LVLs ap2 7.1 cm ESV(MOD-sp2) 60.6 ml ESV(sp2-el) 61.9 ml EF(MOD-sp2) 39.7 % EF(sp2-el) 38.6 % LVLd %diff 0.83 % EDV(MOD-bp) 87.7 ml LVLs %diff -6.76 % ESV(MOD-bp) 56.7 ml EF(MOD-bp) 35.4 % SV(MOD-sp4) 26.8 ml SI(MOD-sp4) 14.0 ml/m\S\2 SV(MOD-sp2) 39.8 ml SI(MOD-sp2) 20.8 ml/m\S\2 SV(MOD-bp) 31.0 ml SI(MOD-bp) 16.2 ml/m\S\2 SV(sp4-el) 28.7 ml SI(sp4-el) 15.0 ml/m\S\2 SV(sp2-el) 38.9 ml SI(sp2-el) 20.4 ml/m\S\2 Doppler Measurements and Calculations MV E max maggie 166.6 cm/sec MV P1/2t max maggie 163.6 cm/sec MV P1/2t 49.5 msec MVA(P1/2t) 4.4 cm\S\2 MV dec slope 967.5 cm/sec\S\2 MV dec time 0.20 sec Ao V2 max 111.2 cm/sec Ao max PG 5.0 mmHg Ao max PG (full) 0.96 mmHg BRAD(V,A) 2.9 cm\S\2 BRAD(V,D) 2.9 cm\S\2 AI max maggie 339.0 cm/sec AI max PG 46.0 mmHg AI dec slope 107.9 cm/sec\S\2 AI P1/2t 920.5 msec LV V1 max PG 4.0 mmHg LV V1 max 100.0 cm/sec
[2016-05-08] MEDS: METOPROLOL TARTRATE 100 MG TAB PO SCH (16:55)
[2016-05-08] MEDS: WARFARIN SOD 5 MG TAB PO SCH (16:56)
[2016-05-08] MEDS: DIGOXIN 0.125 MG TAB PO SCH (16:56)
[2016-05-08 19:32] VITALS: BP 78/60; PULSE 100; TEMP 36.9; O2SAT 96
[2016-05-08 20:01] VITALS: BP 102/66; PULSE 92
[2016-05-08] MEDS: ROSUVASTATIN CALCIUM 10 MG TAB PO SCH (20:03)
[2016-05-08] MEDS: BIMATOPROST 0.01% OP SOLN 2.5 ML BTL OPB SCH (20:03)
[2016-05-08] MEDS: DOCUSATE SODIUM 100 MG CAP PO SCH (20:04)
[2016-05-09] VITALS (9 sets, daily range): BP systolic 110–128; BP diastolic 62–75; PULSE 93–130; TEMP 36.5–37; O2SAT 92–97
[2016-05-09] MEDS: HEPARIN 25,000 UNIT/500ML D5W 500 ML IV PRN (03:43)
[2016-05-09] MEDS: LEVOTHYROXINE 50 MCG TAB PO SCH (06:23)
[2016-05-09 06:30] LABS: INR 2.2 (0.9-1.1); PROTHROMBIN TIME (PATIENT) 24.5 SECONDS (9.0-12.0)
[2016-05-09 07:06] LABS: PARTIAL THROMBOPLASTIN RATIO 2.6
[2016-05-09] MEDS: INSULIN ASPART 100 UNITS/ML 3 ML PEN SC SCH ×4 (08:34→21:06)
[2016-05-09] MEDS: CLOPIDOGREL BISULFATE 75 MG TAB PO SCH (08:35)
[2016-05-09] MEDS: NYSTATIN POWDER 15GM BTL EXT SCH (08:35)
[2016-05-09] MEDS: DOCUSATE SODIUM 100 MG CAP PO SCH ×2 (08:35→10:13)
[2016-05-09] MEDS: METOPROLOL TARTRATE 100 MG TAB PO SCH ×2 (08:36→17:05)
[2016-05-09] MEDS: CHOLECALCIFEROL 1000 INTER.UNIT TAB PO SCH (08:36)
[2016-05-09] MEDS: PANTOprazole SOD 40 MG TAB PO SCH (08:36)
[2016-05-09] MEDS: INSULIN GLARGINE SOLOSTAR 100 UNITS/ML 3 ML PEN SC SCH ×2 (08:38→21:04)
--- NOTE | 2016-05-09 10:01 | Progress Note ---
Internal Med Progress Note Date of Service: May 09, 2016. Provider Documentation: SUBJECTIVE: Patient is doing well. Eager to b e discharged Denies any pain, nausea, vomiting, fever, chills, chest pain, palpitations Tele- A fib - HR better now- 90-100s OBJECTIVE: Vital Signs-as noted below Exam: General-AAOX3, no distress Neck-Supple, NO JVD Lungs-AEBE decreased, no wheezing, crackles Heart-Irregularly irregular rhythm Abdomen-Soft, non tender, non distended, BS present; COLOSTOMY BAG + Extremities-Left groin incision, tenderness +, Pulse- +, no edema, Feet deformities + bilaterally Lab data as noted below. ASSESSMENT & PLAN: Assessment & Plan : ACUTE LLE ISCHEMIA / EMBOLISM : Secondary to acute cardioembolic event as symptoms were sudden in onset -S/P Emergent embolectomy by Dr Hunter on 05/04/16 -S/P ICU monitoring -IV Heparin and started coumadin 5 mg on 05/05/16--> Now on coumadin with INR 2.2. Was not on anti coagulation prior to admission. -Mx per primary team ATRIAL FIBRILLATION WITH RVR- Now controlled HR 90-100s -S/P IV Diltiazem drip in ICU -Was not taking Metoprolol for several days due to GI symptoms -Metoprolol 50 mg daily changed to 25 mg q 6 hours due to uncontrolled rate on per cardiology. On 05/08/16 increased to 100 mg PO BID, Digoxin x 1 dose IV followed by plans to change it to PO - 0.125 mg. To discharge on Metoprolol 100 mg PO BID, Digoxin 0.125 mg per cardiology. Prescriptions in chart and changes made on discharge med list -IV Heparin/Coumadin. INR 2.2. at goal. Off IV Heparin -Echo - EF 55-60%, Mild LVH, LA severely dilated, Severe mitral annular calcifiation, Mild MS -Cardiology on board. Appreciate inputs. Okay to discharge per d/w Dr Barry ALVARADO -Management per Cardiology. -Continue with Plavix, Rosuvastatin HISTORY OF UGI BLEED -On PPI for prophylaxis. NAUSEA / ANOREXIA Etiology uncertain. -PPI as noted above. -Monitor for signs of GI bleeding. -To be evaluated outpatient if still persists DM TYPE 2 Usually well-controlled. -Hold glipizide during hospital stay. -Lantus / NovoLog per protocol. -Restart home meds on discharge DVT PROPHYLAXIS INR 2.2 GI PROPHYLAXIS On protonix DISPOSITION Cleared for discharge home by me and cardiology per d/w Dr Reddy Recommendations as above. New prescriptions in chart. FOLLOW UP WITH PCP - Dr Contreras 05/12/16 at 1:10 PM FOLLOW UP WITH CARDIOLOGY MALKI LYN (LISA) 05/25/16 AT 1:15 PM Vital Signs: Date Time Temp Pulse Resp B/P Pulse Ox O2 Delivery O2 Flow Rate FiO2 05/09/16 08:00 36.6 102 30 117/75 96 Room Air 05/09/16 04:00 Room Air 05/09/16 03:26 36.5 93 24 121/74 97 Room Air 05/09/16 00:00 37.0 96 22 125/64 95 Room Air 05/08/16 23:59 Room Air 05/08/16 20:01 92 102/66 05/08/16 20:00 Room Air 05/08/16 19:32 36.9 100 22 78/60 96 Room Air 05/08/16 16:56 91 05/08/16 16:00 Room Air 05/08/16 15:19 37.0 91 18 116/79 97 Room Air 05/08/16 12:00 Room Air 05/08/16 11:13 37.1 123 14 104/72 96 Room Air 05/08/16 10:37 114 Lab Results: Results Past 24 Hours Test 05/08/16 11:11 05/08/16 15:30 05/08/16 16:03 05/08/16 19:56 Range/Units Bedside Glucose 203 198 184 70-90 mg/dl Activated Partial Thromboplast Time 53.8 21.0-31.0 SECONDS Partial Thromboplastin Ratio 2.1 Test 05/09/16 05:15 05/09/16 06:54 Range/Units Prothrombin Time 24.5 9.0-12.0 SECONDS Prothromb Time International Ratio 2.2 0.9-1.1 Activated Partial Thromboplast Time 67.4 21.0-31.0 SECONDS Partial Thromboplastin Ratio 2.6 Bedside Glucose 192 70-90 mg/dl
[2016-05-09] MEDS ORDERED: LNX125 PO (10:02)
[2016-05-09] MEDS ORDERED: LPR100 PO (10:02)
--- NOTE | 2016-05-09 10:04 | Discharge Instructions ---
Discharge Instructions Admission Reason for Admission: Embolism And Thrombosis Of Arteries Of Lower Extre Discharge Discharge Diagnosis / Problem: Atrial fibrillation with RVR Discharge Goals Goal(s): Diagnostic testing, Therapeutic intervention Activity Recommendations Activity Limitations: per Instructions/Follow-up section (per vascular surgery instructions) . Instructions / Follow-Up Instructions / Follow-Up MEDICATION CHANGES 1. New medication: Digoxin 0.125 mg daily 2. Metoprolol increased to 100 mg PO BID 3. Coumadin 5 mg daily and INR to be monitored at coumadin clinic and accordingly dose needs to be adjusted to maintain INR between 2-3 FOLLOW UP FOLLOW UP WITH PCP - Dr Contreras 05/12/16 at 1:10 PM FOLLOW UP WITH CARDIOLOGY MALIK LYN (LISA) 05/25/16 AT 1:15 PM Current Hospital Diet Patient's current hospital diet: AHA Diet (Heart Healthy), Diabetes Type 2 Diet Discharge Diet Recommended Diet: AHA Diet (Heart Healthy), Low Sodium Diet (2gm Na) Procedures Procedures Performed: Embolectomy left leg with patch angioplasty Pending Studies Studies pending at discharge: no Laboratory Results Hemoglobin A1c Test 05/05/16 05:22 Range/Units Estimated Average Glucose 160 mg/dl Hemoglobin A1c 7.2 H 4.5-5.6 % Medical Emergencies . Who to Call and When: Medical Emergencies: If at any time you feel your situation is an emergency, please call 911 immediately. . Non-Emergent Contact Non-Emergency issues call your: Primary Care Provider . . "Provider Documentation" section prepared by Ciara De Leon. VTE Core Measure Inpt VTE Proph given/why not?: Other Anticoagulation (iv HEPARIN/COUMADIN)
[2016-05-09] MEDS ORDERED: POLYETHYLENE (MIRALAX) 17 GM PACK ONE (10:07)
--- NOTE | 2016-05-09 10:10 | Progress Note ---
Progress Note Date of Service: May 09, 2016. Subjective No complaints Problem List Medical Problems: (1) Atrial fibrillation with RVR Status: Acute (2) Incarcerated incisional hernia Status: Acute (3) SBO (small bowel obstruction) Status: Acute (4) Thoracic compression fracture Status: Acute (5) Upper back pain on left side Status: Acute (6) UTI (urinary tract infection) Status: Acute Objective Vital Signs Vital Signs Past 12 Hours Date Time Temp Pulse Resp B/P Pulse Ox O2 Delivery O2 Flow Rate FiO2 05/09/16 08:00 36.6 102 30 117/75 96 Room Air 05/09/16 04:00 Room Air 05/09/16 03:26 36.5 93 24 121/74 97 Room Air 05/09/16 00:00 37.0 96 22 125/64 95 Room Air 05/08/16 23:59 Room Air Exam Groin incision clean Good doppler left PT Heart rate under better control Intake & Output 8-Hour Column 05/08/16 05/08/16 05/09/16 15:59 23:59 07:59 Intake Total 618 ml 652 ml 120 ml Output Total 400 ml 850 ml 800 ml Balance 218 ml -198 ml -680 ml 24-Hour Column 05/09/16 07:59 Intake Total 1390 ml Output Total 2050 ml Balance -660 ml Laboratory and Microbiology Results Past 24 Hours Test 05/08/16 11:11 05/08/16 15:30 05/08/16 16:03 05/08/16 19:56 Range/Units Bedside Glucose 203 198 184 70-90 mg/dl Activated Partial Thromboplast Time 53.8 21.0-31.0 SECONDS Partial Thromboplastin Ratio 2.1 Test 05/09/16 05:15 05/09/16 06:54 Range/Units Prothrombin Time 24.5 9.0-12.0 SECONDS Prothromb Time International Ratio 2.2 0.9-1.1 Activated Partial Thromboplast Time 67.4 21.0-31.0 SECONDS Partial Thromboplastin Ratio 2.6 Bedside Glucose 192 70-90 mg/dl Imp: Post embolectomy left leg Plan: Cardiology says she can be discharged today. Heart rate under better control Will send home on dig and coumadin
[2016-05-09] MEDS ORDERED: OXYC-57 PO (10:13)
--- NOTE | 2016-05-09 10:41 | CARDIOLOGY PROGRESS NOTE ---
DATE: 05/09/2016 Patient seen and examined. Chart, medications, telemetry reviewed. SUBJECTIVE: The patient feels well this moaning. Notes no dizziness or lightheadedness. Has been up in room without difficulty. Notes no chest pain or discomfort. Heart rates while elevated are substantially better than in the past 2 days. Heart rates in the 80s and 90s increasing slightly higher with exertion. OBJECTIVE: VITAL SIGNS: Heart rate 94, blood pressure is 117/75. Telemetry reveals atrial fibrillation with elevated ventricular response rates at times. No bradyarrhythmias or pauses. NECK: Thin. There is no jugular venous distention. LUNGS: Clear. CARDIOVASCULAR: Irregular, irregular. EXTREMITIES: Without cyanosis or clubbing. There is no peripheral edema. Puncture site right and surgical site left groin are healing. IMPRESSION: 80-year-old female with newly noted atrial fibrillation with elevated ventricular response rates thromboembolism to the left leg. RECOMMENDATIONS: Continue increased dose of metoprolol at metoprolol tartrate 100 mg twice per day, digoxin 0.125 mg per day, chronic anticoagulation with Coumadin --with clopidogrel at least 30 days. The patient will be followed as an outpatient with her cardiology and primary care physician as well as surgical discharge. No contraindications to release today. MTDD
[2016-05-09] MEDS ORDERED: NYSP EXT (10:47)
[2016-05-09] MEDS ORDERED: CMD5 PO (12:02)
[2016-05-09 14:28] LABS: BASO % 0.2 %; BASO ABS # 0.01 K/uL (0-0.2); EOS % 4.6 %; HEMATOCRIT 41.5 % (37-47); IG% 0.4 %; LYMPH % 13.3 %; LYMPH ABS # 0.75 K/uL (1.2-3.4); MEAN CELL VOLUME 89.4 fL (80-100); MEAN PLATELET VOLUME 9.6 fL (7.4-10.4); MONO % 11.5 %; PLATELET COUNT 367 K/uL (130-400); RED BLOOD COUNT 4.64 M/uL (4.2-5.4); WHITE BLOOD COUNT 5.66 K/uL (4.8-10.8)
[2016-05-09 14:36] LABS: COMPLETE YES; MEAN CORPUSCULAR HGB CONC 34.7 g/dl (32-36)
[2016-05-09 15:01] LABS: BUN/CREATININE RATIO 19.5 (10-20); CALCIUM 9.1 mg/dl (8.5-10.1); CREATININE 1.1 mg/dl (0.60-1.20); POTASSIUM 4.6 mmol/L (3.5-5.1)
[2016-05-09] MEDS: WARFARIN SOD 5 MG TAB PO SCH (17:04)
[2016-05-09] MEDS: DIGOXIN 0.125 MG TAB PO SCH (17:05)
--- NOTE | 2016-05-09 18:26 | Progress Note ---
Progress Note Date of Service May 09, 2016. Progress Note around 2pm today, patient was sitting up at the edge of the bed putting shoes on , then suddenly felt nauseated and weak, diaphoretic sat on the chair, symptoms improved BP systolic 140s, HR 120s on exam, patient was alert, oriented, comfortable just feels "tired" denies chest pain, dyspnea, palpitations recommend hold discharge continue to monitor in Tele Dr. Cook notified, he requested patient to be transferred to Medical Service Jaren Trejo MD
[2016-05-09] MEDS: BIMATOPROST 0.01% OP SOLN 2.5 ML BTL OPB SCH (20:58)
[2016-05-09] MEDS: ROSUVASTATIN CALCIUM 10 MG TAB PO SCH (20:58)
[2016-05-10] VITALS: BP 116/80; PULSE 87; TEMP 36.6; O2SAT 99
[2016-05-10 04:00] VITALS: BP 117/86; PULSE 87; TEMP 36.6; O2SAT 98
[2016-05-10] MEDS: LEVOTHYROXINE 50 MCG TAB PO SCH (06:13)
[2016-05-10 07:41] VITALS: BP 113/79; PULSE 109; TEMP 36.7; O2SAT 96
[2016-05-10 08:21] LABS: BASO % 0.2 %; BASO ABS # 0.01 K/uL (0-0.2); COMPLETE YES; EOS % 5.5 %; IG% 0.7 %; LYMPH % 17.2 %; LYMPH ABS # 0.75 K/uL (1.2-3.4); MEAN CELL VOLUME 88.3 fL (80-100); MEAN CORPUSCULAR HEMOGLOBIN 30.2 pg (25-34); MEAN CORPUSCULAR HGB CONC 34.3 g/dl (32-36); MEAN PLATELET VOLUME 9.6 fL (7.4-10.4); MONO % 13.3 %; NEUT % 63.1 %; PLATELET COUNT 372 K/uL (130-400); RED BLOOD COUNT 4.53 M/uL (4.2-5.4); WHITE BLOOD COUNT 4.36 K/uL (4.8-10.8)
[2016-05-10] MEDS: CLOPIDOGREL BISULFATE 75 MG TAB PO SCH (08:42)
[2016-05-10] MEDS: PANTOprazole SOD 40 MG TAB PO SCH (08:42)
[2016-05-10] MEDS: DOCUSATE SODIUM 100 MG CAP PO SCH (08:42)
[2016-05-10] MEDS: CHOLECALCIFEROL 1000 INTER.UNIT TAB PO SCH (08:42)
[2016-05-10] MEDS: METOPROLOL TARTRATE 100 MG TAB PO SCH (08:42)
[2016-05-10] MEDS: NYSTATIN POWDER 15GM BTL EXT SCH (08:43)
[2016-05-10] MEDS: INSULIN ASPART 100 UNITS/ML 3 ML PEN SC SCH ×2 (08:49→12:29)
[2016-05-10] MEDS: INSULIN GLARGINE SOLOSTAR 100 UNITS/ML 3 ML PEN SC SCH (08:50)
[2016-05-10 08:54] LABS: BUN/CREATININE RATIO 23.1 (10-20); CALCIUM 9.4 mg/dl (8.5-10.1); MAGNESIUM 2.2 mg/dl (1.8-2.4); POTASSIUM 4.3 mmol/L (3.5-5.1)
[2016-05-10 08:55] LABS: PHOSPHORUS 2.9 mg/dl (2.5-4.9)
[2016-05-10] MEDS ORDERED: POLYETHYLENE (MIRALAX) 17 GM PACK PO SCH (09:00)
--- NOTE | 2016-05-10 10:01 | CARDIOLOGY PROGRESS NOTE ---
DATE: 05/10/2016 DATE: 05/10/2016. The patient seen and examined. Chart, medications, telemetry reviewed. SUBJECTIVE: The patient notes no further dizziness or lightheadedness. Notes no chest pain or discomfort. Notes while sitting out of bed yesterday, got mildly diaphoretic with heart rate increasing. Had good night. Has been up only minimally in her room. Has not gone off the floor for physical therapy but done some activities in room. OBJECTIVE: VITAL SIGNS: Heart rate is 88, blood pressure is 113/79. Telemetry reveals atrial fibrillation, rate is 80-120 and generally becoming under better rate control. NECK: Thin. There is no jugular venous distention. LUNGS: Clear. CARDIOVASCULAR EXAMINATION: Irregular, irregular. There is no S3 gallop. ABDOMEN: Soft. EXTREMITIES: Without cyanosis or clubbing. There is no peripheral edema. LABORATORY DATA: Sodium is 137, potassium is 4.3, chloride is 100, bicarbonate 26, BUN is 23, creatinine is 1.0. White cell count is 4.3, hemoglobin is 13.7, INR yesterday was 2.2. IMPRESSION: An 80-year-old female with newly noted atrial fibrillation, rate coming under better control. The patient has had acute hospitalization for an ischemic leg with thromboembolectomy. She is very reluctant to consider rehab, though would recommend an extended care facility for at least a brief period of time as patient recovers. I am unsure if patient will be willing to consider. Would continue current dosing of metoprolol and digoxin and anticoagulation with warfarin. MTDD
[2016-05-10 12:01] VITALS: BP 123/74; PULSE 108; TEMP 36.9; O2SAT 95
--- NOTE | 2016-05-10 12:52 | Progress Note ---
Medicine Progress Note Date & Time of Visit: May 10, 2016 at 12:42. Subjective patient seen resting in bed, states she feels better overall denies recurrence of nausea, diaphoresis no chest pain, dizziness, palpitations no BM yet but no abdominal pain, nausea, distention no other symptoms states she is ready and would like to be discharged today Objective Last 8 Hrs Date Time Temp Pulse Resp B/P Pulse Ox O2 Delivery O2 Flow Rate FiO2 05/10/16 12:01 36.9 108 25 123/74 95 Room Air 05/10/16 08:00 Room Air 05/10/16 07:41 36.7 109 22 113/79 96 Room Air Physical Exam: General- oriented x 3, not in distress, speaks in sentences with no effort Eyes- anicteric Neck- no JVD Lungs- clear breath sounds bilaterally Heart- normal rate, regular rhythm; no murmurs Abdomen- normal bowel sounds, non distended, soft, nontender, ostomy in place left groin: incision well opposed with raudel in place, no discharge/swelling/ tenderness/hematoma Extremities- no pretibial edema, no calf tenderness Neuro- alert, oriented x 3;no gross focal deficits Skin- warm & dry Laboratory Results: Last 24 Hours Test 05/09/16 14:15 05/09/16 16:23 05/09/16 20:52 05/10/16 07:03 White Blood Count 5.66 K/uL Red Blood Count 4.64 M/uL Hemoglobin 14.4 g/dL Hematocrit 41.5 % Mean Corpuscular Volume 89.4 fL Mean Corpuscular Hemoglobin 31.0 pg Mean Corpuscular Hemoglobin Concent 34.7 g/dl Platelet Count 367 K/uL Mean Platelet Volume 9.6 fL Neutrophils (%) (Auto) 70.0 % Lymphocytes (%) (Auto) 13.3 % Monocytes (%) (Auto) 11.5 % Eosinophils (%) (Auto) 4.6 % Basophils (%) (Auto) 0.2 % Neutrophils # (Auto) 3.97 K/uL Lymphocytes # (Auto) 0.75 K/uL Monocytes # (Auto) 0.65 K/uL Eosinophils # (Auto) 0.26 K/uL Basophils # (Auto) 0.01 K/uL RDW Standard Deviation 47.4 fL RDW Coefficient of Variation 14.3 % Immature Granulocyte % (Auto) 0.4 % Immature Granulocyte # (Auto) 0.02 K/uL Sodium Level 132 mmol/L Potassium Level 4.6 mmol/L Chloride Level 98 mmol/L Carbon Dioxide Level 24 mmol/L Anion Gap 10.0 mmol/L Blood Urea Nitrogen 21 mg/dl Creatinine 1.10 mg/dl Est Creatinine Clear Calc Drug Dose 41.0 ml/min Estimated GFR () 54.1 Estimated GFR (Non- 46.7 BUN/Creatinine Ratio 19.5 Random Glucose 250 mg/dl Calcium Level 9.1 mg/dl Magnesium Level 2.0 mg/dl Bedside Glucose 197 mg/dl 265 mg/dl 209 mg/dl Test 05/10/16 07:25 05/10/16 11:21 05/10/16 12:35 White Blood Count 4.36 K/uL Red Blood Count 4.53 M/uL Hemoglobin 13.7 g/dL Hematocrit 40.0 % Mean Corpuscular Volume 88.3 fL Mean Corpuscular Hemoglobin 30.2 pg Mean Corpuscular Hemoglobin Concent 34.3 g/dl Platelet Count 372 K/uL Mean Platelet Volume 9.6 fL Neutrophils (%) (Auto) 63.1 % Lymphocytes (%) (Auto) 17.2 % Monocytes (%) (Auto) 13.3 % Eosinophils (%) (Auto) 5.5 % Basophils (%) (Auto) 0.2 % Neutrophils # (Auto) 2.75 K/uL Lymphocytes # (Auto) 0.75 K/uL Monocytes # (Auto) 0.58 K/uL Eosinophils # (Auto) 0.24 K/uL Basophils # (Auto) 0.01 K/uL RDW Standard Deviation 45.9 fL RDW Coefficient of Variation 14.3 % Immature Granulocyte % (Auto) 0.7 % Immature Granulocyte # (Auto) 0.03 K/uL Sodium Level 137 mmol/L Potassium Level 4.3 mmol/L Chloride Level 100 mmol/L Carbon Dioxide Level 26 mmol/L Anion Gap 11.0 mmol/L Blood Urea Nitrogen 23 mg/dl Creatinine 1.00 mg/dl Est Creatinine Clear Calc Drug Dose 44.8 ml/min Estimated GFR () 60.8 Estimated GFR (Non- 52.4 BUN/Creatinine Ratio 23.1 Random Glucose 219 mg/dl Calcium Level 9.4 mg/dl Phosphorus Level 2.9 mg/dl Magnesium Level 2.2 mg/dl Bedside Glucose 222 mg/dl Assessment & Plan ACUTE LEFT LOWER EXTREMITY ISCHEMIA / EMBOLISM - Secondary to acute cardioembolic event as symptoms were sudden in onset -S/P Emergent embolectomy by Dr Hunter on 05/04/16 -S/P ICU monitoring -IV Heparin and coumadin 5 mg on 05/05/16 - INR on discharge 2.2 - Coumadin 5mg daily INR daily needs to be established with coumadin clinic of [facility] ATRIAL FIBRILLATION WITH RAPID VENTRICULAR RESPONSE -Was not taking Metoprolol for several days due to GI symptoms -S/P IV Diltiazem drip in ICU - evaluated by Fo[employer] Dr. Reddy -Echo - EF 55-60%, Mild LVH, LA severely dilated, Severe mitral annular calcifiation, Mild MS -Metoprolol 50 mg daily changed to 100mg BID for better rate control - INR on discharge 2.2 - Coumadin 5mg daily INR daily needs to be established with coumadin clinic of [facility] - close outpatient follow up with [employer] Dr. Reddy CAD -Continue with Plavix, Rosuvastatin HISTORY OF UGI BLEED - on Pantoprazole NAUSEA / ANOREXIA - resolved DM TYPE 2 Usually well-controlled. - continue usual regimen DVT PROPHYLAXIS was on coumadin GI PROPHYLAXIS On protonix DISPOSITION d/c to Rehab today FOLLOW UP WITH PCP - Dr Contreras 05/12/16 at 1:10 PM FOLLOW UP WITH [facility] CARDIOLOGY JORGE LYN (LISA) 05/25/16 AT 1:15 PM Current Inpatient Medications: Current Inpatient Medications Medications (Trade) Dose Ordered Sig/Fina Route Start Time Stop Time Status Last Admin Dose Admin Acetaminophen (Tylenol Tab) 650 mg Q4H PRN PO 05/04/16 11:45 06/03/16 11:44 Oxycodone/ Acetaminophen (Percocet 5-325mg Tab) `1-2 TABS FOR MODER... Q4H PRN PO 05/04/16 11:45 05/18/16 11:44 Glucose (Glucose 40% Gel) 15-30 GRAMS 15 GRAMS... UD PRN PO 05/04/16 11:45 06/03/16 11:44 Glucose (Glucose Chew Tab) 4-8 Tablets 4 Tabl... UD PRN PO 05/04/16 11:45 06/03/16 11:44 Dextrose (Dextrose 50% 50ML Syringe) 25-50ML OF 50% DW IV FOR... UD PRN IV 05/04/16 11:45 06/03/16 11:44 Glucagon (Glucagon Inj) 1 mg UD PRN SQ 05/04/16 11:45 06/03/16 11:44 Clopidogrel Bisulfate (plAVix TAB) 75 mg DAILY PO 05/05/16 09:00 06/04/16 08:59 05/10/16 08:42 75 MG Levothyroxine Sodium (Synthroid Tab) 50 mcg DAILYBB PO 05/05/16 06:00 06/04/16 05:59 05/10/16 06:13 50 MCG Nitroglycerin (Nitrostat Tab) 0.4 mg UD PRN UT 05/04/16 11:45 06/03/16 11:44 Rosuvastatin Calcium (Crestor Tab) 10 mg HS PO 05/04/16 21:00 06/03/16 20:59 05/09/16 20:58 10 MG Bimatoprost (Lumigan 0.01%) 1 drops HS OPB 05/04/16 21:00 06/03/16 20:59 05/09/16 20:58 1 DROPS Nystatin (Mycostatin Powder) 1 appln DAILY EXT 05/05/16 09:00 06/04/16 08:59 05/10/16 08:43 1 APPLN Ondansetron HCl (Zofran Inj) 4 mg Q8H PRN IV 05/04/16 15:15 06/03/16 15:14 05/04/16 22:23 4 MG Warfarin Sodium (Coumadin Tab) 5 mg DAILY@16 PO 05/05/16 16:00 06/04/16 15:59 05/09/16 17:04 5 MG Insulin Aspart (novoLOG ASPART) SLIDING SCALE G... ACHS SC 05/04/16 21:00 06/07/16 20:59 05/10/16 12:29 5 UNITS Metoprolol Tartrate (Lopressor Iv) 5 mg Q4 PRN IV 05/04/16 21:00 06/03/16 20:59 05/06/16 22:43 5 MG Pantoprazole Sodium (Protonix Tab) 40 mg QAM PO 05/05/16 11:00 06/04/16 10:59 05/10/16 08:42 40 MG Metoprolol Tartrate (Lopressor Tab) 100 mg BID17 PO 05/08/16 17:00 06/07/16 16:59 05/10/16 08:42 100 MG Digoxin (Lanoxin Tab) 0.125 mg DAILY@16 PO 05/08/16 16:00 06/07/16 15:59 05/09/16 17:05 0.125 MG Cholecalciferol (Vitamin D Tab) 2,000 inter.unit DAILY PO 05/08/16 09:30 06/07/16 09:29 05/10/16 08:42 2,000 INTER.UNIT Docusate Sodium (coLACE CAP) 100 mg BID PO 05/08/16 21:00 06/07/16 20:59 05/10/16 08:42 100 MG Insulin Glargine (Lantus Solostar Pen) 12 unit BID SC 05/08/16 21:00 06/07/16 20:59 05/10/16 08:50 12 UNIT Polyethylene (Miralax Powder Packet) 17 gm DAILY PO 05/10/16 09:00 06/09/16 08:59 05/10/16 08:42 17 GM
[2016-05-10 12:55] LABS: INR 2.3 (0.9-1.1); PROTHROMBIN TIME (PATIENT) 25.1 SECONDS (9.0-12.0)
[2016-05-10] MEDS ORDERED: PANT40TA PO (12:55)
--- NOTE | 2016-05-10 13:08 | Discharge Instructions ---
Discharge Instructions Admission Reason for Admission: Embolism And Thrombosis Of Arteries Of Lower Extre Discharge Discharge Diagnosis / Problem: ACUTE LEFT LOWER EXTREMITY ARTERIAL EMBOLISM Discharge Goals Goal(s): Diagnostic testing, Therapeutic intervention Activity Recommendations Activity Level: Assistance Required Therapies: Physical Therapy, Occupational Therapy FALL PRECAUTIONS . Additional Information Patient informed of condition: Yes Advance Directives: No (UNKNOWN) DNR: No (PATIENT IS FULL CODE) Level of Care: Acute Rehab Communicable Disease: No Prognosis: Stable Instructions / Follow-Up Instructions / Follow-Up PLEASE MONITOR LEFT GROIN INCISION DAILY. CHECK INR DAILY, ADJUST COUMADIN ACCORDINGLY. (COUMADIN BEING TAKEN FOR ARTERIAL EMBOLISM, ATRIAL FIBRILLATION). MONITOR BLOOD GLUCOSE. (RE: DM TYPE 2). DAILY VITAL SIGNS (RE: METOPROLOL INCREASED). MONITOR BOWEL MOVEMENT (RE: CONSTIPATION). MEDICATION CHANGES 1. New medication: Digoxin 0.125 mg daily 2. Metoprolol increased to 100 mg PO BID 3. New medication: Coumadin 5 mg daily and INR to be monitored , coumadin adjusted to maintain INR between 2-3. Needs to establish with [facility]. FOLLOW UP FOLLOW UP WITH PCP - Dr Contreras 05/12/16 at 1:[address] BROTHERS IN 1 WEEK. FOLLOW UP WITH CARDIOLOGY MALIK MARIE) 05/25/16 AT 1:15 PM PLEASE REFER TO ACCOMPANYING DISCHARGE SUMMARY FOR FURTHER DETAILS. Current Hospital Diet Patient's current hospital diet: AHA Diet (Heart Healthy), Diabetes Type 2 Diet Discharge Diet Recommended Diet: AHA Diet (Heart Healthy), Diabetes Type 2 Diet Procedures Procedures Performed: 05/04/16: Embolectomy left leg with patch angioplasty (Dr. Brothers) Pending Studies Studies pending at discharge: yes List of pending studies: CHECK INR DAILY, ADJUST COUMADIN ACCORDINGLY. Physician Orders On Transfer Special Precautions: PLEASE MONITOR LEFT GROIN INCISION DAILY. CHECK INR DAILY, ADJUST COUMADIN ACCORDINGLY. (COUMADIN BEING TAKEN FOR ARTERIAL EMBOLISM, ATRIAL FIBRILLATION). MONITOR BLOOD GLUCOSE. (RE: DM TYPE 2). DAILY VITAL SIGNS (RE: METOPROLOL INCREASED). MONITOR BOWEL MOVEMENT (RE: CONSTIPATION). MEDICATION CHANGES 1. New medication: Digoxin 0.125 mg daily 2. Metoprolol increased to 100 mg PO BID 3. New medication: Coumadin 5 mg daily and INR to be monitored , coumadin adjusted to maintain INR between 2-3. Needs to establish with [facility]. FOLLOW UP FOLLOW UP WITH PCP - Dr Contreras 05/12/16 at 1:[address] BROTHERS IN 1 WEEK. FOLLOW UP WITH CARDIOLOGY MALIK LYN (LISA) 05/25/16 AT 1:15 PM PLEASE REFER TO ACCOMPANYING DISCHARGE SUMMARY FOR FURTHER DETAILS. Laboratory Results Hemoglobin A1c Test 05/05/16 05:22 Range/Units Estimated Average Glucose 160 mg/dl Hemoglobin A1c 7.2 H 4.5-5.6 % Medical Emergencies . Who to Call and When: Medical Emergencies: If at any time you feel your situation is an emergency, please call 911 immediately. . Non-Emergent Contact Non-Emergency issues call your: Primary Care Provider Call Non-Emergent contact if: you have a fever, your pain is not controlled, wound has increased drainage, wound has increased redness, wound has increased pain, you have any medication questions . 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 "Provider Documentation" section prepared by Jaren Trejo. Core Measure Problem Core Measures: None [place] Drug Monitoring Program Search Results: patient reviewed within database, no issues identified
--- NOTE | 2016-05-10 13:11 | Discharge Summary ---
Discharge Summary Date of Service May 10, 2016. Discharge Summary Admission Date: May 04, 2016 at 11:51 Discharge Date: May 10, 2016 Discharge Disposition: Rehab Principal Diagnosis: ACUTE LEFT LOWER EXTREMITY ARTERIAL EMBOLISM Secondary Diagnoses/Problems: PLEASE REFER TO HOSPITAL COURSE BELOW. Procedures: -S/P Emergent embolectomy by Dr Hunter on 05/04/16 Consultations: VASCULAR SURGERY DR. BROTHERS, TRANSPORTATION DISPATCH MANAGER DR. REDDY, HOSPITALIST DR. CAPPS/ KAIDEN Pending Studies/Follow-Up: PLEASE MONITOR LEFT GROIN INCISION DAILY. CHECK INR DAILY, ADJUST COUMADIN ACCORDINGLY. (COUMADIN BEING TAKEN FOR ARTERIAL EMBOLISM, ATRIAL FIBRILLATION). MONITOR BLOOD GLUCOSE. (RE: DM TYPE 2). DAILY VITAL SIGNS (RE: METOPROLOL INCREASED). MONITOR BOWEL MOVEMENT (RE: CONSTIPATION). MEDICATION CHANGES 1. New medication: Digoxin 0.125 mg daily 2. Metoprolol increased to 100 mg PO BID 3. New medication: Coumadin 5 mg daily and INR to be monitored , coumadin adjusted to maintain INR between 2-3. Needs to establish with [facility]. FOLLOW UP FOLLOW UP WITH PCP - Dr Contreras 05/12/16 at 1:[address] BROTHERS IN 1 WEEK. FOLLOW UP WITH CARDIOLOGY MALIK MARIE) 05/25/16 AT 1:15 PM PLEASE REFER TO HOSPITAL COURSE BELOW FOR FURTHER DETAILS. Medication Reconciliation New Medications: Oxycodone/Acetaminophen 5MG/325MG (Percocet 5MG/325MG) Tab 1 TABLET PO Q4H PRN for Pain, #30 TAB Pantoprazole Sodium (Protonix) 40 Mg Tab 40 MG PO DAILY for 30 Days, #30 TAB 1 Refill 30 MINUTES BEFORE BREAKFAST Sennosides-Docusate Sodium (Senokot S) 1 Tab Tab 1 TAB PO DAILY for 30 Days, #30 TAB Digoxin (Digoxin) 0.125 Mg Tab 0.125 MG PO DAILY@16 for 30 Days, #30 TAB Metoprolol Tartrate (Metoprolol Tartrate) 100 Mg Tab 100 MG PO BID17 for 30 Days, #60 TAB Nystatin (Nystop) 45 Appln/15 Gm Powd 1 APPLN EXT DAILY for 30 Days, #1 1 Refill Warfarin Sod (Coumadin) 5 Mg Tab 5 MG PO DAILY@16 for 30 Days, #30 TAB 2 Refills Continued Medications: Bimatoprost (Lumigan) 0.01 % Marli 1 DROP OPB HS Cholecalciferol (Vitamin D3) 2,000 Unit Cap 2000 INTER.UNIT PO DAILY, CAP Clopidogrel Bisulfate (Clopidogrel) 75 Mg Tab 75 MG PO DAILY Glipizide (Glipizide ER) 10 Mg Tabcr 10 MG PO BIDM TAKE THIS MEDICATION WITH BREAKFAST AND EVENING MEALS Insulin Aspart (Novolog) 100 Units/Ml Inj 1 DOSE SC BID COVERAGE DIRECTED BY SLIDING SCALE Insulin Human NPH (Novolin N) 100 Units/Ml Susp 15-20 UNITS SC HS Levothyroxine Sodium (Levothyroxine Sodium) 50 Mcg Tab 50 MCG PO DAILY, TAB Nitroglycerin (Nitrostat) 0.4 Mg Sub 0.4 MG UT UD PRN for Chest Pain, BTL PLACE ONE TABLET UNDER THE TONGUE EVERY 5 MINUTES FOR UP TO 3 DOSES IF NEEDED FOR CHEST PAIN. Rosuvastatin Calcium (Rosuvastatin Calcium) 10 Mg Tab 10 MG PO HS Discontinued Medications: Metoprolol Succinate (Toprol Xl) 50 Mg Tabcr 50 MG PO DAILY Admission Information HPI (per Admitting provider): The patient is a 80 year old female who developed sudden onset left leg pain this morning. She claims her left leg is numb and can not move it. She has afib. She stopped plavix a few days ago due to not feeling well. No claudication prior to this. Physical Exam (per Admitting): General Apperance: heathly-appearing, well-nourished, well-developed Level of Distress: moderate distress Ambulation: limited ambulation Neck: supple Lungs: Auscultation: breath sounds normal Cardiovascular: Heart Auscultation: pertinent finding (afib with rapid rate) Peripheral Pulses: Femoral Pulse: normal on the left, normal on the right Posterior Tibialis Pulse: decreased on the right, absent on the left Dorsalis Pedis Pulse: decreased on the right, absent on the left Musculoskeletal: normal Extremities: Upper Right: no cyanosis, no edema, no varicosities, no palpable cord, no clubbing, no ulcers, no mottling Upper Left: no cyanosis, no edema, no varicosities, no palpable cord, no clubbing, no ulcers, no mottling Lower Left: mottling, pertinent finding (cold) Neurologic: Sensation: pertinent finding (left leg numb and motionless) Hospital Course ACUTE LEFT LOWER EXTREMITY ARTERIAL EMBOLISM - Secondary to acute cardioembolic event as symptoms were sudden in onset -S/P Emergent embolectomy by Dr Hunter on 05/04/16 -S/P ICU monitoring - anticoagulation started with IV Heparin and coumadin 5 mg on 05/05/16 - INR on discharge 2.3 - continue Coumadin 5mg daily INR daily needs to be established with coumadin clinic of [facility] ATRIAL FIBRILLATION WITH RAPID VENTRICULAR RESPONSE -Was not taking Metoprolol for several days due to GI symptoms -S/P IV Diltiazem drip in ICU - evaluated by Intravenous Therapy Nurse Dr. Reddy -Echo - EF 55-60%, Mild LVH, LA severely dilated, Severe mitral annular calcifiation, Mild MS -Metoprolol 50 mg daily changed to 100mg BID for better rate control - INR on discharge 2.3 - continue Coumadin 5mg daily INR daily needs to be established with coumadin clinic of [facility] - close outpatient follow up with Intravenous Therapy Nurse Dr. Reddy CAD -Continue with Plavix, Rosuvastatin HISTORY OF UGI BLEED - started Pantoprazole now that patient is both on Plavix and Coumadin NAUSEA / ANOREXIA - resolved DM TYPE 2 - continue usual regimen - monitor blood glucose DVT PROPHYLAXIS coumadin GI PROPHYLAXIS On protonix DISPOSITION d/c to Rehab today FOLLOW UP WITH PCP - Dr Contreras 05/12/16 at 1:10 PM FOLLO UP WITH VASCULAR SURGERY DR. BROTHERS IN 1 WEEK. FOLLOW UP WITH [facility] CARDIOLOGY JORGE LYN (LISA) 05/25/16 AT 1:15 PM Total time spent on discharge = 60 MINUTES This includes examination of the patient, discharge planning, medication reconciliation, and communication with other providers. Discharge Instructions Discharge Instructions Admission Reason for Admission: Embolism And Thrombosis Of Arteries Of Lower Extre Discharge Discharge Diagnosis / Problem: ACUTE LEFT LOWER EXTREMITY ARTERIAL EMBOLISM Discharge Goals Goal(s): Diagnostic testing, Therapeutic intervention Activity Recommendations Activity Level: Assistance Required Therapies: Physical Therapy, Occupational Therapy FALL PRECAUTIONS . Additional Information Patient informed of condition: Yes Advance Directives: No (UNKNOWN) DNR: No (PATIENT IS FULL CODE) Level of Care: Acute Rehab Communicable Disease: No Prognosis: Stable Instructions / Follow-Up Instructions / Follow-Up PLEASE MONITOR LEFT GROIN INCISION DAILY. CHECK INR DAILY, ADJUST COUMADIN ACCORDINGLY. (COUMADIN BEING TAKEN FOR ARTERIAL EMBOLISM, ATRIAL FIBRILLATION). MONITOR BLOOD GLUCOSE. (RE: DM TYPE 2). DAILY VITAL SIGNS (RE: METOPROLOL INCREASED). MONITOR BOWEL MOVEMENT (RE: CONSTIPATION). MEDICATION CHANGES 1. New medication: Digoxin 0.125 mg daily 2. Metoprolol increased to 100 mg PO BID 3. New medication: Coumadin 5 mg daily and INR to be monitored , coumadin adjusted to maintain INR between 2-3. Needs to establish with [facility]. FOLLOW UP FOLLOW UP WITH PCP - Dr Contreras 05/12/16 at 1:[address] BROTHERS IN 1 WEEK. FOLLOW UP WITH CARDIOLOGY MALIK MARIE) 05/25/16 AT 1:15 PM PLEASE REFER TO ACCOMPANYING DISCHARGE SUMMARY FOR FURTHER DETAILS. Current Hospital Diet Patient's current hospital diet: AHA Diet (Heart Healthy), Diabetes Type 2 Diet Discharge Diet Recommended Diet: AHA Diet (Heart Healthy), Diabetes Type 2 Diet Procedures Procedures Performed: 05/04/16: Embolectomy left leg with patch angioplasty (Dr. Brothers) Pending Studies Studies pending at discharge: yes List of pending studies: CHECK INR DAILY, ADJUST COUMADIN ACCORDINGLY. Physician Orders On Transfer Special Precautions: PLEASE MONITOR LEFT GROIN INCISION DAILY. CHECK INR DAILY, ADJUST COUMADIN ACCORDINGLY. (COUMADIN BEING TAKEN FOR ARTERIAL EMBOLISM, ATRIAL FIBRILLATION). MONITOR BLOOD GLUCOSE. (RE: DM TYPE 2). DAILY VITAL SIGNS (RE: METOPROLOL INCREASED). MONITOR BOWEL MOVEMENT (RE: CONSTIPATION). MEDICATION CHANGES 1. New medication: Digoxin 0.125 mg daily 2. Metoprolol increased to 100 mg PO BID 3. New medication: Coumadin 5 mg daily and INR to be monitored , coumadin adjusted to maintain INR between 2-3. Needs to establish with [facility]. FOLLOW UP FOLLOW UP WITH PCP - Dr Contreras 05/12/16 at 1:[address] BROTHERS IN 1 WEEK. FOLLOW UP WITH CARDIOLOGY MALIK MARIE) 05/25/16 AT 1:15 PM PLEASE REFER TO ACCOMPANYING DISCHARGE SUMMARY FOR FURTHER DETAILS. Laboratory Results Hemoglobin A1c Test 05/05/16 05:22 Range/Units Estimated Average Glucose 160 mg/dl Hemoglobin A1c 7.2 H 4.5-5.6 % Medical Emergencies . Who to Call and When: Medical Emergencies: If at any time you feel your situation is an emergency, please call 911 immediately. . Non-Emergent Contact Non-Emergency issues call your: Primary Care Provider Call Non-Emergent contact if: you have a fever, your pain is not controlled, wound has increased drainage, wound has increased redness, wound has increased pain, you have any medication questions . 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 "Provider Documentation" section prepared by Jaren Trejo. Core Measure Problem Core Measures: None [place] Drug Monitoring Program Search Results: patient reviewed within database, no issues identified
[2016-05-10] MEDS ORDERED: SENN8.6T7 PO (13:15)
[2016-05-10 13:39] VITALS: BP 123/74; PULSE 108; TEMP 36.9; O2SAT 95
--- NOTE | 2016-05-11 10:22 | EDITING REQUIRED CODING QUERY ---
CONGESTIVE HEART FAILURE Note - there is documentation in the history of CHF but it is not specified. To Promote full compliance with coding requirements relating to patient care, physician participation is requested in all cases of inflated pad buffer uncertainty. Please assist us with the following questions. A diagnosis of Congestive Heart Failure is documented in the patient's medical record. To accurately code this diagnosis and to compare patient severity, we ask that you specify the type of heart failure by placing an X within the parenthesis (x). SYSTOLIC HEART FAILURE ( ) Acute ( ) Chronic ( ) Acute on Chronic ( ) Rheumatic ( ) Unknown DIASTOLIC HEART FAILURE ( ) Acute ( ) Chronic ( ) Acute on Chronic ( ) Rheumatic ( ) Unknown COMBINED SYSTOLIC AND DIASTOLIC HEART FAILURE ( ) Acute ( ) Chronic ( ) Acute on Chronic ( ) Rheumatic ( ) Unknown Was the CHF Present On Admission? Please check the appropriate box: ( ) Present on Admission (X ) Not Present On Admission ( ) Clinically undetermined Thank you Carole Espinoza
== END 2016-05-10 15:29 | DRG 253 ==
LOC: ENRESERVTM → ENRESERVDT → EDBD 08:26 → C.EDB 08:29 → C.MSICU 11:51 → C.2E 05-05 11:48
PROVIDERS: ADMIT Surgery Vascular Surgery; ATTEND Internal Medicine
PROC: 02HV33Z Insertion of Infusion Device into Superior Vena Cava, Percutaneous Approach (ICD-10-PCS; 2016-05-04)
PROC: 04UL0KZ Supplement Left Femoral Artery with Nonautologous Tissue Substitute, Open Approach (ICD-10-PCS; principal; 2016-05-04 09:00)
PROC: 04CL0Z6 (ICD-10-PCS; principal; 2016-05-04 09:00)
DX: I82.412 Acute embolism and thrombosis of left femoral vein (principal); N17.9 Acute kidney failure, unspecified; I48.91 Unspecified atrial fibrillation; B37.2 Candidiasis of skin and nail; E11.65 Type 2 diabetes mellitus with hyperglycemia; I11.9 Hypertensive heart disease without heart failure; D64.9 Anemia, unspecified; R11.0 Nausea; R63.0 Anorexia; E11.9 Type 2 diabetes mellitus without complications; E03.9 Hypothyroidism, unspecified; E78.5 Hyperlipidemia, unspecified; I45.10 Unspecified right bundle-branch block; H40.9 Unspecified glaucoma; I25.10 Atherosclerotic heart disease of native coronary artery without angina pectoris; E66.9 Obesity, unspecified; Z91.128 Patient's intentional underdosing of medication regimen for other reason; Z51.81 Encounter for therapeutic drug level monitoring; Z79.899 Other long term (current) drug therapy; Z79.4 Long term (current) use of insulin; Z79.02 Long term (current) use of antithrombotics/antiplatelets; Z95.1 Presence of aortocoronary bypass graft; Z86.79 Personal history of other diseases of the circulatory system; Z87.311 Personal history of (healed) other pathological fracture; Z85.3 Personal history of malignant neoplasm of breast; Z68.35 Body mass index [BMI] 35.0-35.9, adult; Z87.891 Personal history of nicotine dependence; Z85.048 Personal history of other malignant neoplasm of rectum, rectosigmoid junction, and anus; Z82.49 Family history of ischemic heart disease and other diseases of the circulatory system; Z83.3 Family history of diabetes mellitus; Z84.1 Family history of disorders of kidney and ureter

== ENCOUNTER → 2017-10-02 | Outpatient (CLI) | payer OTHER, MEDICARE ==
[~2017-10-02] MED LIST changes: -ACET-1256 PO; -CEFAZOLIN 2000 MG/60 ML D5W IV SCH; +CMD5 PO; -FLX/5 PO; +LNX125 PO; +LPR100 PO; -METO-217 PO; +NYSP EXT; +PANT40TA PO; -PRED10TA PO; -ROSU10TA24 PO; +ROSU10TA26 PO; -ULT50 PO
[2017-10-02 12:47] LABS: ALBUMIN 3.5 gm/dl (3.4-5.0); CALCIUM 9.5 mg/dl (8.5-10.1); CREATININE 1.33 mg/dl (0.60-1.20)
== END | disposition home or self-care (01) ==
LOC: C.LAB1850 11:10
PROVIDERS: ATTEND Nurse Practitioner Adult Health
DX: M85.80 Other specified disorders of bone density and structure, unspecified site (principal); E55.9 Vitamin D deficiency, unspecified

== ENCOUNTER 2018-11-23 21:24 | Inpatient (IN) ==
[2018-11-23] MEDS ORDERED: FAMOTIDINE 20MG IV PUSH 20 MG/5 ML SYR IV STA (22:11)
[2018-11-23 22:24] LABS: INR 2.5 (0.9-1.1); Prothrombin Time 23.8 Seconds (9.0-12.0)
[2018-11-23 22:25] LABS: Basophils # (auto) 0.02 K/uL (0-0.2); Basophils % (auto) 0.3 %; Eosinophils # (auto) 0.18 K/uL (0-0.5); Eosinophils % (auto) 2.6 %; Hematocrit (blood only) 43.7 % (37-47); Hemoglobin 14.6 g/dL (12.0-16.0); Immature Granulocytes # (auto) 0.01 K/uL (0.00-0.02); Immature Granulocytes % (auto) 0.1 %; Lymphocytes # (auto) 0.94 K/uL (1.2-3.4); Lymphocytes % (auto) 13.5 %; Mean Corpuscular Hemoglobin 31.1 pg (25-34); Mean Corpuscular Hgb Conc 33.4 g/dL (32-36); Mean Corpuscular Volume 93.2 fL (80-100); Mean Platelet Volume 9.9 fL (7.4-10.4); Monocytes # (auto) 0.56 K/uL (0.11-0.59); Monocytes % (auto) 8.1 %; Neutrophils # (auto) 5.23 K/uL (1.4-6.5); Neutrophils % (auto) 75.4 %; Platelet Count 218 K/uL (130-400); RDW Coefficient of Variation 14.3 % (11.5-14.5); RDW Standard Deviation 48.3 fL (36.4-46.3); Red Blood Count 4.69 M/uL (4.2-5.4); White Blood Count 6.94 K/uL (4.8-10.8)
[2018-11-23 22:47] LABS: Alanine Aminotransferase 19 U/L (12-78); Albumin Level 3.2 gm/dl (3.4-5.0); Aspartate Aminotransferase 18 U/L (15-37); BUN Creatinine Ratio 12.5 (10-20); Bilirubin Direct 0.2 mg/dl (0-0.2); Blood Urea Nitrogen 18 mg/dl (7-18); Calcium 9.5 mg/dl (8.5-10.1); Carbon Dioxide 32 mmol/L (21-32); Chloride 107 mmol/L (98-107); Creatinine Clr Calc Pharmacy 29.6 ml/min; Est GFR (African American) 37.6; Est GFR (Non-African American) 32.5; Glucose 251 mg/dl (70-99); Lipase 238 U/L (73-393); Potassium 4.7 mmol/L (3.5-5.1); Sodium 142 mmol/L (136-145)
[2018-11-23 22:52] LABS: Albumin Globulin Ratio 0.7 (0.9-2); Alkaline Phosphatase 65 U/L (45-117); Bilirubin,Total 0.5 mg/dl (0.2-1); Globulin 4.4 gm/dl (2.5-4.0); Total Protein 7.6 gm/dl (6.4-8.2); Troponin I < 0.015 ng/ml (0-0.045)
[2018-11-23] MEDS ORDERED: SODIUM CHLORIDE 0.9% 500 ML IV ONE (22:52)
--- NOTE | 2018-11-23 23:07 | XRay Report ---
XR chest 1V portable CLINICAL HISTORY: 83 years-old Female presenting with Chest Pain. TECHNIQUE: Portable upright AP view of the chest was obtained. COMPARISON: 05/04/2016. FINDINGS: Median sternotomy wires and mediastinal surgical clips. Prosthetic mitral valve. Atherosclerosis of t he aortic arch. Cardiac silhouette moderately enlarged. Pulmonary vascular prominence and prominence of the interstitium. Added density of the central and basilar regions of the lungs. No large effusion or pneumothorax. Degenerative changes of the thoracic spine. Osteopenia suspected. IMPRESSION: 1. Cardiac megaly with volume overload and congestive change. Developing pulmonary edema suspected. Electronically signed by: Guzman Hernandez M.D. 11/23/2018 11:06 PM
[2018-11-23] MEDS ORDERED: ACETAMINOPHEN 1,000 MG/100 ML VIAL IV STA (23:27)
[2018-11-23] MEDS ORDERED: IOVERSOL 100ml IV PRN (23:51)
[2018-11-24 00:17] LABS: Appearance Urine Clear (Clear); Bacteria Urine Automated Negative (Negative); Bilirubin Urine Negative (Negative); Blood Urine Negative (Negative); Cast Urine Automated 0 /lpf (0-5); Color Urine Yellow; Epithelial Cell Urine Auto >30 /lpf (0-5); Glucose Urine UA 1+ (Negative); Ketones Urine Negative (Negative); Leukocyte Esterase Urine Trace (Negative); Nitrite Urine Negative (Negative); Protein Urine Negative (Negative); RBC Urine Automated 0-4 /hpf (0-4); Specific Gravity Urine 1.019 (1.000-1.030); Urobilinogen Urine Negative (Negative); pH Urine 6.5 (4.5-7.5)
[2018-11-24] MEDS ORDERED: METOPROLOL TARTRATE 1 MG/ML VIAL IV STA (02:15)
[2018-11-24] MEDS ORDERED: METOPROLOL TARTRATE 1 MG/ML VIAL IV ONE (02:24)
[2018-11-24 02:28] LABS: Magnesium 2.1 mg/dl (1.8-2.4)
[2018-11-24] MEDS ORDERED: TAMSULOSIN HCL 0.4 MG CAP PO ONE (02:45)
--- NOTE | 2018-11-24 02:46 | History & Physical Report ---
Date of Service November 24, 2018 Assessment & Plan (1) Hypertensive urgency: Secondary to abdominal discomfort Partial medication non-compliance - patient takes Lopressor BID home rx only once daily by preference SBO History of rectal cancer status post surgery Obstructive uropathy incidental finding on CT, ARF on CRI CAD status post CABG A. fib on Coumadin, rate controlled, INR therapeutic Hyperlipidemia statin Rx past history PE/DVT breast cancer status post surgery DM 2 insulin requiring, well-controlled as of recent hemoglobin A1c of 7.1 last February 2019 past tobacco abuse Medical telemetry for hypertensive urgency Facilitate home beta-lam, patient counseled about importance of taking prescribed twice daily dosing for Lopressor. Bowel rest for SBO Surgery consult RE SBO (Patient already seen at the ER by Dr. Figueroa). NGT if with emesis (Patient currently refusing upon description of procedure.) Flomax trial for obstructive uropathy Urology consult RE obstructive uropathy Strain urine, daily renal function, monitor creatinine response to IVF Basal insulin adjusted for bowel rest status, ISS BG goal 1 40-1 80, carb count coverage DVT prophylaxis. Coumadin INR goal between 2 and 3 if no surgical intervention, may need IV heparin while Coumadin on hold interim if INR subtherapeutic Full code History of Present Illness Chief Complaint: Abdominal distention/discomfort Primary Care Provider: Moe Carpenter MD History obtained from patient and records. Medical history significant for CAD status post CABG, A. fib on Coumadin, history PE/DVT, hypertension, pulmonary hypertension as per records, left breast cancer status post surgery, rectal cancer status post surgery, DM 2 insulin requiring, CRI baseline creatinine 1.3, past tobacco abuse. Recent confinement April 2016 for acute left lower extremity arterial embolism status post embolectomy. Patient was watching television last night when she felt her abdomen to be more distended than usual, achy left lower quadrant pain. Ostomy output somewhat decreased as per patient. Some nausea. No emesis. No chest pain, no S OB. No hematuria/flank pain symptoms. Patient brought to the ER for further evaluation. 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 Allergies Allergy/AdvReac Type Severity Reaction Status Date / Time iodine Allergy Intermediate ITCHING Verified 11/23/18 22:24 lisinopril Allergy Unknown Verified 11/23/18 22:24 Sulfa (Sulfonamide Allergy Unknown ITCHING Verified 11/23/18 22:24 Antibiotics) Home Medications Home Medications Medication Instructions Recorded Confirmed Type nitroglycerin [Nitrostat] 0.4 mg SUBLINGUAL UD PRN #0 btl 08/12/13 11/23/18 History levothyroxine 50 mcg PO QAM #0 tab 08/12/15 11/23/18 History cholecalciferol (vitamin D3) 2,000 unit PO QAM #0 cap 03/14/16 11/23/18 History [Vitamin D3] insulin aspart U-100 [Novolog 1 sliding scale dose SUBCUT TIDM #0 03/14/16 11/23/18 History U-100 Insulin aspart] rosuvastatin 10 mg PO HS #0 03/14/16 11/23/18 History calcitriol 0.5 mcg PO QAM 11/23/18 11/23/18 History denosumab [Prolia] 60 mg SUBCUT Q6M 11/23/18 11/23/18 History digoxin 125 mcg PO PM 11/23/18 11/23/18 History insulin degludec [Tresiba U-100 27 unit SUBCUT HS 11/23/18 11/23/18 History Insulin] metoprolol tartrate 100 mg PO BID 11/23/18 11/23/18 History timolol maleate 1 drp OPHTHALMIC (EYE) QAM 11/23/18 11/23/18 History warfarin [Coumadin] 2.5 mg PO 3XWK 11/23/18 11/23/18 History warfarin [Coumadin] 5 mg PO 4XWK 11/23/18 11/23/18 History Past Med/Surg History Medical History History of rectal cancer (Chronic) History of upper gastrointestinal bleeding (Chronic) "duodenal ulcer 2013" 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) "Rectal bleeding Status post colonoscopy and biopsy 01/14/2015 Adenocarcinoma the rectum moderately differentiated Status post ultrasound staging [id number] Plan concomitant radiation and chemotherapy Chemotherapy comprised of Xeloda Radiation completed 05/27/2015 received 5040 cGy" On 03/23/15 15:33 Sol Zamora wrote "Rectal bleeding Status post colonoscopy and biopsy 01/14/2015 Adenocarcinoma the rectum moderately differentiated Status post ultrasound staging [id number] Plan concomitant radiation and chemotherapy Chemotherapy comprised of Xeloda" Diabetes mellitus, type 2 (Chronic) 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) History of breast cancer (Chronic) Hypothyroidism (Chronic) Surgical History Status post cardiac catheterization (Chronic) Status post coronary artery bypass grafting (Chronic) Status post partial colectomy (Chronic) Status post colostomy (Chronic) Status post partial mastectomy (Chronic) Family History Other No pertinent family history Social History Preferred Language: Nauruan 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 Ability: Effective Conservation Or Heritage Architect Required: No Beliefs That Will Affect Care: None Current Living Situation: Alone Feels Safe at Home: Yes Safety Concerns: Feels Safe At This Time Smoking Status: Never smoker Hx Alcohol Use: No Hx Substance Use: No Review of Systems Review of Systems: As per HPI, all 10 systems reviewed, all other ROS negative Physical Exam Physical Exam: GENERAL: Slightly uncomfortable, pleasant, obese, no respiratory distress SKIN: Normal color, warm HEENT: [place] palpebral conjunctivae, no ptosis, chronic upper lip asymmetry, dry buccal mucosa NECK : Supple, short neck, no tenderness CHEST : Decreased breath sounds, no tenderness HEART : Irregular , diastolic murmur ABDOMEN: distention, ostomy bag in place, minimal left lower quadrant tenderness EXTREMITIES : Minimal LE swelling, no LE tenderness, no other conspicuous deformities noted NEUROLOGIC : Coherent, chronic upper lip asymmetry, no other gross focality Results & Data Vital Signs (Past 12 Hours) Vital Signs Temp Pulse Pulse Resp BP BP Pulse Ox 11/24/18 02:30 76 163/114 H 11/24/18 01:29 76 16 161/84 H 95 11/24/18 00:01 78 16 170/86 H 94 11/23/18 22:31 71 16 185/82 H 96 11/23/18 22:15 98 11/23/18 21:38 36.8 C 79 16 162/126 H 95 Laboratory Results Laboratory Results WBC 6.94 K/uL (4.8-10.8) 11/23/18 22:00 RBC 4.69 M/uL (4.2-5.4) 11/23/18 22:00 Hgb 14.6 g/dL (12.0-16.0) 11/23/18 22:00 Hct 43.7 % (37-47) 11/23/18 22:00 MCV 93.2 fL (80-100) 11/23/18 22:00 MCH 31.1 pg (25-34) 11/23/18 22:00 MCHC 33.4 g/dL (32-36) 11/23/18 22:00 RDW Std Deviation 48.3 fL (36.4-46.3) H 11/23/18 22:00 RDW Coeff of Kei 14.3 % (11.5-14.5) 11/23/18 22:00 Plt Count 218 K/uL (130-400) 11/23/18 22:00 MPV 9.9 fL (7.4-10.4) 11/23/18 22:00 Immature Gran % (Auto) 0.1 % 11/23/18 22:00 Neut % (Auto) 75.4 % 11/23/18 22:00 Lymph % (Auto) 13.5 % 11/23/18 22:00 [place] % (Auto) 8.1 % 11/23/18 22:00 Eos % (Auto) 2.6 % 11/23/18 22:00 Baso % (Auto) 0.3 % 11/23/18 22:00 Immature Gran # (Auto) 0.01 K/uL (0.00-0.02) 11/23/18 22:00 Neut # (Auto) 5.23 K/uL (1.4-6.5) 11/23/18 22:00 Lymph # (Auto) 0.94 K/uL (1.2-3.4) L 11/23/18 22:00 Atkinson # (Auto) 0.56 K/uL (0.11-0.59) 11/23/18 22:00 Eos # (Auto) 0.18 K/uL (0-0.5) 11/23/18 22:00 Baso # (Auto) 0.02 K/uL (0-0.2) 11/23/18 22:00 PT 23.8 Seconds (9.0-12.0) H 11/23/18 22:00 INR 2.5 (0.9-1.1) H 11/23/18 22:00 Sodium 142 mmol/L (136-145) 11/23/18 22:00 Potassium 4.7 mmol/L (3.5-5.1) 11/23/18 22:00 Chloride 107 mmol/L (98-107) 11/23/18 22:00 Carbon Dioxide 32 mmol/L (21-32) 11/23/18 22:00 Anion Gap 3.0 (3-11) 11/23/18 22:00 BUN 18 mg/dl (7-18) 11/23/18 22:00 Creatinine 1.46 mg/dl (0.6-1.2) H 11/23/18 22:00 Est Cr Clr Drug Dosing 29.6 ml/min 11/23/18 22:00 Est GFR ( Amer) 37.6 11/23/18 22:00 Est GFR (Non-Af Amer) 32.5 11/23/18 22:00 BUN/Creatinine Ratio 12.5 (10-20) 11/23/18 22:00 Glucose 251 mg/dl (70-99) H 11/23/18 22:00 Calcium 9.5 mg/dl (8.5-10.1) 11/23/18 22:00 Magnesium 2.1 mg/dl (1.8-2.4) 11/23/18 22:00 Total Bilirubin 0.5 mg/dl (0.2-1) 11/23/18 22:00 Direct Bilirubin 0.2 mg/dl (0-0.2) 11/23/18 22:00 AST 18 U/L (15-37) 11/23/18 22:00 ALT 19 U/L (12-78) 11/23/18 22:00 Alkaline Phosphatase 65 U/L (45-117) 11/23/18 22:00 Troponin I < 0.015 ng/ml (0-0.045) 11/23/18 22:00 Total Protein 7.6 gm/dl (6.4-8.2) 11/23/18 22:00 Albumin 3.2 gm/dl (3.4-5.0) L 11/23/18 22:00 Globulin 4.4 gm/dl (2.5-4.0) H 11/23/18 22:00 Albumin/Globulin Ratio 0.7 (0.9-2) L 11/23/18 22:00 Lipase 238 U/L (73-393) 11/23/18 22:00 Urine Color Yellow 11/24/18 00:01 Urine Appearance Clear (Clear) 11/24/18 00:01 Urine pH 6.5 (4.5-7.5) 11/24/18 00:01 Ur Specific [place] 1.019 (1.000-1.030) 11/24/18 00:01 Urine Protein Negative (Negative) 11/24/18 00:01 Urine Glucose (UA) 1+ (Negative) H 11/24/18 00:01 Urine Ketones Negative (Negative) 11/24/18 00:01 Urine Blood Negative (Negative) 11/24/18 00:01 Urine Nitrite Negative (Negative) 11/24/18 00:01 Urine Bilirubin Negative (Negative) 11/24/18 00:01 Urine Urobilinogen Negative (Negative) 11/24/18 00:01 Ur Leukocyte Esterase Trace (Negative) H 11/24/18 00:01 Urine WBC (Auto) 1-5 /hpf (0-5) 11/24/18 00:01 Urine RBC (Auto) 0-4 /hpf (0-4) 11/24/18 00:01 U Hyaline Cast (Auto) 0 /lpf (0-5) 11/24/18 00:01 U Epithel Cells (Auto) >30 /lpf (0-5) H 11/24/18 00:01 Urine Bacteria (Auto) Negative (Negative) 11/24/18 00:01 Digoxin 1.0 ng/ml (0.8-2.0) 11/23/18 22:[address] abdomen pelvis initial read: Multiple loops of dilated small bowel with air- fluid levels throughout the abdomen with a transition point in the posterior right pelvis concerning for small bowel obstruction possibly from underlying adhesions. Status post perineal resection and colostomy on the left lower abdomen. Large parastomal hernia containing a loop of transverse colon without colonic obstruction/strangulation. Obstructing stone measuring 5 mm at the right UPJ causing mild right hydronephrosis. Additional nonobstructing stone measuring 5 mm and 9 mm in the inferior and mid right kidney. Cardiomegaly. Intralobular septal thickening suggesting interstitial edema. Status post cholecystectomy. Severe atherosclerosis of the aorta and iliac arteries. Multiple old compression deformities of the spine. EKG as per my interpretation rate 80, A. fib, normal axis, incomplete right bundle branch block, RVH, diffuse T wave flattening
--- NOTE | 2018-11-24 03:12 | Surgery Consultation ---
Date of Consultation November 24, 2018 Assessment & Plan (1) Partial bowel obstruction: This time the patient has symptoms compatible partial bowel obstruction she is not nauseated her pain is somewhat subsided my recommendation at this time would be to keep her n.p.o. except water sips and ice chips admit the patient to the medical service there is no need for an NG tube at this time and hopefully her symptoms will subside just some with bowel rest Present recommendation were discussed with the medical service Plans of therapy were discussed with the patient and her family and they all concur with the present plans We will follow along with you Present on Admission?: Yes (2) History of rectal cancer: Present on Admission?: Yes History of Present Illness Reason for Consultation: We were asked to see this 83-year-old female with symptoms of partial bowel obstruction She is here in the emergency room with her brother and another family member Her symptoms started approximately 6:00 last evening when she was watching the news with severe abdominal pain without any nausea or vomiting the pain was in the lower abdomen and migrated up to the upper abdomen She denies ever had symptoms like this before she had an abdominal perineal resection approximately 3 years ago with a colostomy and developed a peristomal hernia. The surgery was done at [facility] for rectal carcinoma Allergies Allergy/AdvReac Type Severity Reaction Status Date / Time iodine Allergy Intermediate ITCHING Verified 11/23/18 22:24 lisinopril Allergy Unknown Verified 11/23/18 22:24 Sulfa (Sulfonamide Allergy Unknown ITCHING Verified 11/23/18 22:24 Antibiotics) Home Medications Home Medications Medication Instructions Recorded Confirmed Type nitroglycerin [Nitrostat] 0.4 mg SUBLINGUAL UD PRN #0 btl 08/12/13 11/23/18 History levothyroxine 50 mcg PO QAM #0 tab 08/12/15 11/23/18 History cholecalciferol (vitamin D3) 2,000 unit PO QAM #0 cap 03/14/16 11/23/18 History [Vitamin D3] insulin aspart U-100 [Novolog 1 sliding scale dose SUBCUT TIDM #0 03/14/16 11/23/18 History U-100 Insulin aspart] rosuvastatin 10 mg PO HS #0 03/14/16 11/23/18 History calcitriol 0.5 mcg PO QAM 11/23/18 11/23/18 History denosumab [Prolia] 60 mg SUBCUT Q6M 11/23/18 11/23/18 History digoxin 125 mcg PO PM 11/23/18 11/23/18 History insulin degludec [Tresiba U-100 27 unit SUBCUT HS 11/23/18 11/23/18 History Insulin] metoprolol tartrate 100 mg PO BID 11/23/18 11/23/18 History timolol maleate 1 drp OPHTHALMIC (EYE) QAM 11/23/18 11/23/18 History warfarin [Coumadin] 2.5 mg PO 3XWK 11/23/18 11/23/18 History warfarin [Coumadin] 5 mg PO 4XWK 11/23/18 11/23/18 History Patient History Medical History History of rectal cancer (Chronic) History of upper gastrointestinal bleeding (Chronic) "duodenal ulcer 2013" 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) "Rectal bleeding Status post colonoscopy and biopsy 01/14/2015 Adenocarcinoma the rectum moderately differentiated Status post ultrasound staging [id number] Plan concomitant radiation and chemotherapy Chemotherapy comprised of Xeloda Radiation completed 05/27/2015 received 5040 cGy" On 03/23/15 15:33 Sol Zamora wrote "Rectal bleeding Status post colonoscopy and biopsy 01/14/2015 Adenocarcinoma the rectum moderately differentiated Status post ultrasound staging [id number] Plan concomitant radiation and chemotherapy Chemotherapy comprised of Xeloda" Diabetes mellitus, type 2 (Chronic) 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) History of breast cancer (Chronic) Hypothyroidism (Chronic) Surgical History Status post cardiac catheterization (Chronic) Status post coronary artery bypass grafting (Chronic) Status post partial colectomy (Chronic) Status post colostomy (Chronic) Status post partial mastectomy (Chronic) Family History Other No pertinent family history Social History Feels Safe at Home: Yes Smoking Status: Former smoker Physical Exam Physical Exam: Patient is alert in no acute distress at this time the pain is much better since she has received some Tylenol Constitutional: WD/WN, vitals as above well developed, well nourished and + obese Eyes: PERRL, conjunctivae normal, anicteric sclerae Neck: trachea midline, no thyromegaly Respiratory: normal respiratory effort, lungs clear to auscultation Cardiovascular: RRR, no murmur, no edema Gastrointestinal (Abdomen): The abdomen is distended there is no localized tenderness large parastomal hernia with output through the colostomy no palpable hernias were appreciated Musculoskeletal: no cyanosis or clubbing, extremities motor strength 5/5 Results & Data Vital Signs (Past 12 Hours) Vital Signs Temp Pulse Pulse Resp BP BP Pulse Ox 11/24/18 02:30 76 163/114 H 11/24/18 01:29 76 16 161/84 H 95 11/24/18 00:01 78 16 170/86 H 94 11/23/18 22:31 71 16 185/82 H 96 11/23/18 22:15 98 11/23/18 21:38 36.8 C 79 16 162/126 H 95 PG Care Time/CCT Total # of Minutes Spent Total Time Spent with Patient: Total time spent is greater than 50% in coordination of care (as documented) at patient's floor/unit and/or counseling patient: (1) Partial bowel obstruction Intestinal obstruction type: unspecified Qualified Code(s): K56.600 - Partial intestinal obstruction, unspecified as to cause
--- NOTE | 2018-11-24 03:23 | Emergency Department Note ---
Entered by Karoline Clay acting as a scribe for Mahesh Hawthorne MD History of Present Illness General Chief complaint: Abdominal Pain Stated complaint: abdominal pain Time Seen by Provider: 11/23/18 21:27 Source: patient History of Present Illness Onset (ago): hour(s) (5) Location: abdomen Pain Consistency: + constant Quality: + other (pressure) Associated symptoms: + other (normal bowel movements); no nausea/vomiting and no shortness of breath The patient is a 83 year old female who presents to the Emergency Room with complaints of constant abdominal pain around her colostomy bag beginning five hours ago. The patient states the pain is a pressure pushing upwards into her chest. The patient reports always having bulging around her colostomy bag, but no pain with the bulging normally. She reports normal bowel movements. The patient denies shortness of breath, nausea, and vomiting. She notes a history of AR and triple bypass surgery. Home Medications Home Medications Medication Instructions Recorded Confirmed Type nitroglycerin [Nitrostat] 0.4 mg SUBLINGUAL UD PRN #0 btl 08/12/13 11/23/18 History levothyroxine 50 mcg PO QAM #0 tab 08/12/15 11/23/18 History cholecalciferol (vitamin D3) 2,000 unit PO QAM #0 cap 03/14/16 11/23/18 History [Vitamin D3] insulin aspart U-100 [Novolog 1 sliding scale dose SUBCUT TIDM #0 03/14/16 11/23/18 History U-100 Insulin aspart] rosuvastatin 10 mg PO HS #0 03/14/16 11/23/18 History calcitriol 0.5 mcg PO QAM 11/23/18 11/23/18 History denosumab [Prolia] 60 mg SUBCUT Q6M 11/23/18 11/23/18 History digoxin 125 mcg PO PM 11/23/18 11/23/18 History insulin degludec [Tresiba U-100 27 unit SUBCUT HS 11/23/18 11/23/18 History Insulin] metoprolol tartrate 100 mg PO BID 11/23/18 11/23/18 History timolol maleate 1 drp OPHTHALMIC (EYE) QAM 11/23/18 11/23/18 History warfarin [Coumadin] 2.5 mg PO 3XWK 11/23/18 11/23/18 History warfarin [Coumadin] 5 mg PO 4XWK 11/23/18 11/23/18 History Allergies Allergy/AdvReac Type Severity Reaction Status Date / Time iodine Allergy Intermediate ITCHING Verified 11/23/18 22:24 lisinopril Allergy Unknown Verified 11/23/18 22:24 Sulfa (Sulfonamide Allergy Unknown ITCHING Verified 11/23/18 22:24 Antibiotics) Past Med/Surg History Medical History History of rectal cancer (Chronic) History of upper gastrointestinal bleeding (Chronic) "duodenal ulcer 2013" 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) "Rectal bleeding Status post colonoscopy and biopsy 01/14/2015 Adenocarcinoma the rectum moderately differentiated Status post ultrasound staging [id number] Plan concomitant radiation and chemotherapy Chemotherapy comprised of Xeloda Radiation completed 05/27/2015 received 5040 cGy" On 03/23/15 15:33 Sol Zamora wrote "Rectal bleeding Status post colonoscopy and biopsy 01/14/2015 Adenocarcinoma the rectum moderately differentiated Status post ultrasound staging [id number] Plan concomitant radiation and chemotherapy Chemotherapy comprised of Xeloda" Diabetes mellitus, type 2 (Chronic) 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 and A total of 10 systems reviewed and were otherwise negative Physical Exam Vital Signs Vital Signs - 24 hr 11/23/18 21:38 11/23/18 22:15 11/23/18 22:31 Temperature 36.8 C Temperature Source Oral Sepsis Recent Fever Within 48 Hours No Sepsis Action Taken by Nursing No Action Required Pulse Rate 79 Pulse Rate [Right] 71 Pulse Rhythm [Right] Regular Pulse Strength [Right] Normal Respiratory Rate 16 16 Respiratory Effort / Characteristics Non-Labored Spontaneous Non-Labored Spontaneous Respiratory Depth Normal Normal Blood Pressure 162/126 H Blood Pressure [Right Arm] 185/82 H Blood Pressure Mean 138 Blood Pressure Mean [Right Arm] 116 Blood Pressure Position Lying Blood Pressure Position [Right Arm] Lying Pulse Oximetry 95 98 96 Oxygen Delivery Method Room Air Room Air Room Air 11/24/18 00:01 11/24/18 01:29 11/24/18 02:30 Temperature Temperature Source Sepsis Recent Fever Within 48 Hours Sepsis Action Taken by Nursing Pulse Rate 76 Pulse Rate [Right] 78 76 Pulse Rhythm [Right] Irregular Pulse Strength [Right] Normal Respiratory Rate 16 16 Respiratory Effort / Characteristics Non-Labored Spontaneous Non-Labored Spontaneous Respiratory Depth Normal Normal Blood Pressure 163/114 H Blood Pressure [Right Arm] 170/86 H 161/84 H Blood Pressure Mean Blood Pressure Mean [Right Arm] 114 109 Blood Pressure Position Blood Pressure Position [Right Arm] Pulse Oximetry 94 95 Oxygen Delivery Method Room Air Room Air 11/24/18 03:16 Temperature Temperature Source Sepsis Recent Fever Within 48 Hours Sepsis Action Taken by Nursing Pulse Rate Pulse Rate [Right] 75 Pulse Rhythm [Right] Pulse Strength [Right] Respiratory Rate 16 Respiratory Effort / Characteristics Non-Labored Spontaneous Respiratory Depth Normal Blood Pressure Blood Pressure [Right Arm] 169/80 H Blood Pressure Mean Blood Pressure Mean [Right Arm] 109 Blood Pressure Position Blood Pressure Position [Right Arm] Pulse Oximetry 96 Oxygen Delivery Method Room Air GENERAL: Awake, alert, chronically ill-appearing, in no distress HENT: Normocephalic, atraumatic. Oropharynx unremarkable. EYES: Normal conjunctiva. Sclera non-icteric. NECK: Supple. No nuchal rigidity. FROM. No JVD. RESPIRATORY: CTAB. CARDIAC: Regular rate, normal rhythm. Extremities warm and well perfused. Pulses equal. ABDOMEN: Left lower quadrant ostomy, chronic ventral abdominal wall hernia soft and nontender. No tenderness to palpation. No rebound or guarding. No masses. RECTAL: Deferred. MUSCULOSKELETAL: Chest examination reveals no tenderness. The back is symmetrical on inspection without obvious abnormality. There is no CVA tenderness to palpation. No joint edema. LOWER EXTREMITIES: Calves are equal size bilaterally and non-tender. No edema. No discoloration. NEURO: Normal sensorium. No sensory or motor deficits noted. SKIN: No rash or jaundice noted. Course 220: Past medical records reviewed. The patient was evaluated in room B07. A co mplete history and physical exam was performed. 0130: Discussed the patient's case with Dr. Figueroa - General Surgery, [facility] who agrees the patient should be evaluated further. 0144: Upon reevaluation, I discussed findings and results with the patient. She verbalized agreement of the treatment plan. I spoke with Dr. Jacques of the [facility] Hospitalist Service. The patient will be evaluated for further management and care. Administered Medications Discontinued Medications Famotidine (Pepcid 20mg Iv Push) 20 mg in 5 mls @ 2.5 mls/min IV NOW STA Stop: 11/23/18 22:12 Last Admin: 11/23/18 22:18 Dose: 2.5 mls/min Documented by: [id number] Sodium Chloride (Nss) 500 mls @ 999 mls/hr IV .Q31M ONE Stop: 11/23/18 23:22 Last Infusion: 11/23/18 23:30 Dose: 0 mls/hr Documented by: [id number] Admin: 11/23/18 22:58 Dose: 999 mls/hr Documented by: [id number] Acetaminophen (Ofirmev) 1,000 mg in 100 mls @ 400 mls/hr IV NOW STA Stop: 11/23/18 23:41 Last Infusion: 11/23/18 23:46 Dose: 0 mls/hr Documented by: [id number] Admin: 11/23/18 23:30 Dose: 400 mls/hr Documented by: [id number] Ioversol (Optiray 320 100ml) 93 ml IV ONCE PRN PRN Reason: Interaction Checking Stop: 11/27/18 23:50 Last Admin: 11/23/18 23:51 Dose: 93 ml Documented by: [id number] Metoprolol Tartrate (Lopressor) 2.5 mg IV NOW STA Stop: 11/24/18 02:16 Last Admin: 11/24/18 02:30 Dose: 2.5 mg Documented by: [id number] Metoprolol Tartrate (Lopressor) Confirm Administered Dose 5 mg IV .STK-MED ONE Stop: 11/24/18 02:25 Last Admin: 11/24/18 02:31 Dose: Not Given Documented by: [id number] Medical Decision Making Differential Diagnosis Differential diagnoses includes but is not limited to gastritis, peptic ulcer disease, GERD, gallbladder disease, pancreatitis, small bowel obstruction, acute coronary syndrome, pericarditis, ischemic bowel, irritable bowel disease, irritable bowel syndrome, appendicitis, diverticulitis, malignancy, hernia, urinary tract infection, torsion, /ectopic , perforation, trauma, infectious. Medical Records Attestation: I reviewed the patient's medical records. Home Medications Current Medication List: was personally reviewed by me Laboratory Data Attestation: I reviewed the patient's lab results. Result diagrams: 11/23/18 22:00 11/23/18 22:00 Lab Results 11/23/18 11/23/18 11/23/18 Range/Units 22:00 22:00 22:00 WBC 6.94 (4.8-10.8) K/uL RBC 4.69 (4.2-5.4) M/uL Hgb 14.6 (12.0-16.0) g/dL Hct 43.7 (37-47) % MCV 93.2 (80-100) fL MCH 31.1 (25-34) pg MCHC 33.4 (32-36) g/dL RDW Std Deviation 48.3 H (36.4-46.3) fL RDW Coeff of Kei 14.3 (11.5-14.5) % Plt Count 218 (130-400) K/uL MPV 9.9 (7.4-10.4) fL Immature Gran % (Auto) 0.1 % Neut % (Auto) 75.4 % Lymph % (Auto) 13.5 % [place] % (Auto) 8.1 % Eos % (Auto) 2.6 % Baso % (Auto) 0.3 % Immature Gran # (Auto) 0.01 (0.00-0.02) K/uL Neut # (Auto) 5.23 (1.4-6.5) K/uL Lymph # (Auto) 0.94 L (1.2-3.4) K/uL [place] # (Auto) 0.56 (0.11-0.59) K/uL Eos # (Auto) 0.18 (0-0.5) K/uL Baso # (Auto) 0.02 (0-0.2) K/uL PT 23.8 H (9.0-12.0) Seconds INR 2.5 H (0.9-1.1) APTT (21.0-31.0) Seconds PTT Ratio Sodium 142 (136-145) mmol/L Potassium 4.7 (3.5-5.1) mmol/L Chloride 107 (98-107) mmol/L Carbon Dioxide 32 (21-32) mmol/L Anion Gap 3.0 (3-11) BUN 18 (7-18) mg/dl Creatinine 1.46 H (0.6-1.2) mg/dl Est Cr Clr Drug Dosing 29.6 ml/min Est GFR ( Amer) 37.6 Est GFR (Non-Af Amer) 32.5 BUN/Creatinine Ratio 12.5 (10-20) Glucose 251 H (70-99) mg/dl Calcium 9.5 (8.5-10.1) mg/dl Magnesium 2.1 (1.8-2.4) mg/dl Total Bilirubin 0.5 (0.2-1) mg/dl Direct Bilirubin 0.2 (0-0.2) mg/dl AST 18 (15-37) U/L ALT 19 (12-78) U/L Alkaline Phosphatase 65 (45-117) U/L Troponin I < 0.015 (0-0.045) ng/ml Total Protein 7.6 (6.4-8.2) gm/dl Albumin 3.2 L (3.4-5.0) gm/dl Globulin 4.4 H (2.5-4.0) gm/dl Albumin/Globulin Ratio 0.7 L (0.9-2) Lipase 238 (73-393) U/L Urine Color Urine Appearance (Clear) Urine pH (4.5-7.5) Ur Specific [place] (1.000-1.030) Urine Protein (Negative) Urine Glucose (UA) (Negative) Urine Ketones (Negative) Urine Blood (Negative) Urine Nitrite (Negative) Urine Bilirubin (Negative) Urine Urobilinogen (Negative) Ur Leukocyte Esterase (Negative) Urine WBC (Auto) (0-5) /hpf Urine RBC (Auto) (0-4) /hpf U Hyaline Cast (Auto) (0-5) /lpf U Epithel Cells (Auto) (0-5) /lpf Urine Bacteria (Auto) (Negative) Digoxin (0.8-2.0) ng/ml 11/23/18 11/23/18 11/24/18 Range/Units 22:00 22:00 00:01 WBC (4.8-10.8) K/uL RBC (4.2-5.4) M/uL Hgb (12.0-16.0) g/dL Hct (37-47) % MCV (80-100) fL MCH (25-34) pg MCHC (32-36) g/dL RDW Std Deviation (36.4-46.3) fL RDW Coeff of Kei (11.5-14.5) % Plt Count (130-400) K/uL MPV (7.4-10.4) fL Immature Gran % (Auto) % Neut % (Auto) % Lymph % (Auto) % [place] % (Auto) % Eos % (Auto) % Baso % (Auto) % Immature Gran # (Auto) (0.00-0.02) K/uL Neut # (Auto) (1.4-6.5) K/uL Lymph # (Auto) (1.2-3.4) K/uL [place] # (Auto) (0.11-0.59) K/uL Eos # (Auto) (0-0.5) K/uL Baso # (Auto) (0-0.2) K/uL PT (9.0-12.0) Seconds INR (0.9-1.1) APTT 31.1 H (21.0-31.0) Seconds PTT Ratio 1.1 Sodium (136-145) mmol/L Potassium (3.5-5.1) mmol/L Chloride (98-107) mmol/L Carbon Dioxide (21-32) mmol/L Anion Gap (3-11) BUN (7-18) mg/dl Creatinine (0.6-1.2) mg/dl Est Cr Clr Drug Dosing ml/min Est GFR ( Amer) Est GFR (Non-Af Amer) BUN/Creatinine Ratio (10-20) Glucose (70-99) mg/dl Calcium (8.5-10.1) mg/dl Magnesium (1.8-2.4) mg/dl Total Bilirubin (0.2-1) mg/dl Direct Bilirubin (0-0.2) mg/dl AST (15-37) U/L ALT (12-78) U/L Alkaline Phosphatase (45-117) U/L Troponin I (0-0.045) ng/ml Total Protein (6.4-8.2) gm/dl Albumin (3.4-5.0) gm/dl Globulin (2.5-4.0) gm/dl Albumin/Globulin Ratio (0.9-2) Lipase (73-393) U/L Urine Color Yellow Urine Appearance Clear (Clear) Urine pH 6.5 (4.5-7.5) Ur Specific [place] 1.019 (1.000-1.030) Urine Protein Negative (Negative) Urine Glucose (UA) 1+ H (Negative) Urine Ketones Negative (Negative) Urine Blood Negative (Negative) Urine Nitrite Negative (Negative) Urine Bilirubin Negative (Negative) Urine Urobilinogen Negative (Negative) Ur Leukocyte Esterase Trace H (Negative) Urine WBC (Auto) 1-5 (0-5) /hpf Urine RBC (Auto) 0-4 (0-4) /hpf U Hyaline Cast (Auto) 0 (0-5) /lpf U Epithel Cells (Auto) >30 H (0-5) /lpf Urine Bacteria (Auto) Negative (Negative) Digoxin 1.0 (0.8-2.0) ng/ml Imaging Data Radiologist's Impression: Radiology results as stated below per my review and the radiologist's interpretation: XR chest 1V portable CLINICAL HISTORY: 83 years-old Female presenting with Chest Pain. TECHNIQUE: Portable upright AP view of the chest was obtained. COMPARISON: 05/04/2016. FINDINGS: Median sternotomy wires and mediastinal surgical clips. Prosthetic mitral valve. Atherosclerosis of the aortic arch. Cardiac silhouette moderately enlarged. Pulmonary vascular prominence and prominence of the interstitium. Added density of the central and basilar regions of the lungs. No large effusion or pneumothorax. Degenerative changes of the thoracic spine. Osteopenia suspected. IMPRESSION: 1. Cardiac megaly with volume overload and congestive change. Developing pulm onary edema suspected. Electronically signed by: Guzman Hernandez M.D. 11/23/2018 11:06 PM Preliminary Findings Only See Final Report For Complete Findings CT ABDOMEN & PELVIS With Contrast: Multiple loops of dilated small bowel with air-fluid levels throughout the abdomen with a transition point in the posterior right pelvis (series 2 image 52) is concerning for acute small bowel obstruction, possibly from underlying adhesions. No free air or free fluid. Status post abdominal perineal resection and end colostomy in the left lower abdomen. There is a large parastomal hernia containing a loop of transverse colon without colonic obstruction or strangulation. Obstructing stone measuring 5 mm at the right UPJ causing mild right hydronephrosis. Additional nonobstructing stone measuring 5 mm and 9 mm in the inferior and mid right kidney. Cardiomegaly. Intralobular septal thickening in the visualized lungs suggests interstitial edema. Status post cholecystectomy. No significant biliary dilatation. Severe atherosclerosis of the aorta and iliac arteries. Multiple old compression deformities of the spine including T12, L1, L3, and L4. There is mild bony retropulsion at T12 and moderate bony retropulsion at L1 similar to the previous study. Radiologist: Pat Guy MD Study ready at 23:52 and initial results transmitted at 00:41 ECG Data Attestation: I personally reviewed and interpreted this ECG as follows: Indication: chest pain Rate (beats per minute): 83 Rhythm: atrial fibrillation Findings: + other (right ventricular hypertrophy with repolarization abnormality ) and + RBBB (incomplete); no ST depression, no ST elevation and no acute ischemic change Comparison ECG Date: from (05/05/2016) Change: no significant change Blood Pressure Blood Pressure Findings: Elevated blood pressure Blood Pressure Disposition: further management by hospitalist FRANCO Quach The patient is a pleasant 83-year-old woman with a past medical history of rectal cancer status post colostomy, CKD, history of CAD status post CABG, A. fib on Coumadin who presents emergency department with lower abdominal pain that occurred tonight intermittently but denies any nausea or vomiting or changes in ostomy output. On arrival patient is chronically ill-appearing but no acute distress, afebrile stable vital signs. On exam the patient has a left lower quadrant ostomy site is clean dry and intact. She has a large, soft, nontender ventral hernia superior to her colostomy site which she reports is chronic. Her abdomen is benign. WBC, H/H and platelets within normal limits. INR 2.5 therapeutic, chemistry without acidosis. Electrolytes and LFTs unremarkable. Troponin negative. Creatinine 1.4, within range of prior values for patient's CKD. UA without convincing evidence of infection with epithelial cells. CT abdomen pelvis per preliminary stat report demonstrates multiple loops of dilated small bowel with air-fluid levels throughout the abdomen and a transposition point in the posterior right pelvis that is concerning for acute small bowel obstruction from possibly underlying adhesions. Clinically however given the patient reports no nausea vomiting and normal ostomy output complete bowel obstruction is less likely. Initially the patient had no pain however she later did develop some mild pain which completely resolved with IV Tylenol. I did discuss the case with Dr. Figueroa who evaluated the patient and recommends admission to medicine for further monitoring and they will follow. Otherwise, incidentally the patient does have obstructing renal stone of 5 mm at the right UPJ with mild right hydronephrosis however the patient appears to be asymptomatic from this. Case was discussed with Dr. Jacques, [facility] Hospitalist, who will evaluate the patient admission. Impression & Plan Partial bowel obstruction, H/O colostomy Discharge Plan Visit Data *Final* Discharge Date/Time: 11/24/18 03:22 Chief Complaint: Abdominal Pain Stated Complaint: abdominal pain ED Provider: Mahesh Hawthorne Discharge Problem: Partial bowel obstruction, H/O colostomy Patient Disposition: Admitted As Inpatient Discharge Instructions Interventions: ED Discharge Assessment Last Done: 11/24/18 03:22 Discharge Problem: Partial bowel obstruction Qualifiers: Intestinal obstruction type: unspecified Qualified Code(s): K56.600 - Partial intestinal obstruction, unspecified as to cause The scribe's documentation has been prepared under my direction and personally reviewed by me in its entirety. I confirm that the note above accurately reflects all work, treatment, procedures, and medical decision making performed by me.
[2018-11-24 03:25] LABS: Partial Thromboplastin Ratio 1.1; Partial Thromboplastin Time 31.1 Seconds (21.0-31.0)
[2018-11-24] MEDS ORDERED: ACETAMINOPHEN 325 MG TAB PO PRN (03:43)
[2018-11-24] MEDS ORDERED: TRAMADOL HCL 50 MG TABLET PO PRN (03:43)
[2018-11-24] MEDS ORDERED: HYDROmorphone INJ 0.5 MG/0.5 ML SYR IV PRN (03:43)
[2018-11-24] MEDS ORDERED: CARBOHYDRATES FOR HYPOGLYCEMIA PO PRN (03:43)
[2018-11-24] MEDS ORDERED: GLUCOSE 40% GEL 15 GM TUBE PO PRN (03:43)
[2018-11-24] MEDS ORDERED: GLUCOSE 10 TABS/TUBE PO PRN (03:43)
[2018-11-24] MEDS ORDERED: DEXTROSE 50% 50 ML SYRINGE IV PRN (03:43)
[2018-11-24] MEDS ORDERED: GLUCAGON FOR INJ 1 MG VIAL SQ PRN (03:43)
[2018-11-24] MEDS ORDERED: NITROGLYCERIN SL 0.4 MG/TAB TAB SL PRN (03:43)
[2018-11-24] MEDS ORDERED: INSULIN GLARGINE SOLOSTAR 100 UNITS/ML 3 ML PEN SQ STA (03:54)
[2018-11-24] MEDS: INSULIN ASPART 100 UNITS/ML 3 ML PEN SC SCH ×3 (04:17→18:01)
[2018-11-24] MEDS: SODIUM CHLORIDE 0.45 % 1,000 ML IV SCH (04:29)
[2018-11-24] MEDS ORDERED: METOPROLOL TARTRATE 100 MG TAB PO SCH ×2 (05:15→09:00)
[2018-11-24] MEDS: LEVOTHYROXINE SODIUM 50 MCG TABLET PO SCH (05:48)
[2018-11-24 06:42] LABS: Basophils # (auto) 0.02 K/uL (0-0.2); Basophils % (auto) 0.3 %; Eosinophils # (auto) 0.11 K/uL (0-0.5); Eosinophils % (auto) 1.6 %; Hematocrit (blood only) 43.6 % (37-47); Hemoglobin 14.4 g/dL (12.0-16.0); Immature Granulocytes # (auto) 0.02 K/uL (0.00-0.02); Immature Granulocytes % (auto) 0.3 %; Lymphocytes # (auto) 1.02 K/uL (1.2-3.4); Lymphocytes % (auto) 14.9 %; Mean Corpuscular Hemoglobin 30.6 pg (25-34); Mean Corpuscular Volume 92.8 fL (80-100); Monocytes # (auto) 0.46 K/uL (0.11-0.59); Monocytes % (auto) 6.7 %; Neutrophils # (auto) 5.22 K/uL (1.4-6.5); Neutrophils % (auto) 76.2 %; Platelet Count 209 K/uL (130-400); RDW Coefficient of Variation 14.2 % (11.5-14.5); White Blood Count 6.85 K/uL (4.8-10.8)
[2018-11-24] MEDS: PROMETHAZINE HCL 12.5 MG in SODIUM CHLORIDE 0.9% 50 ML IV PRN ×2 (06:49→18:14)
[2018-11-24 06:51] LABS: INR 2.2 (0.9-1.1); Partial Thromboplastin Ratio 1.2; Partial Thromboplastin Time 31.7 Seconds (21.0-31.0); Prothrombin Time 21.7 Seconds (9.0-12.0)
[2018-11-24 07:21] LABS: BUN Creatinine Ratio 13.1 (10-20); Calcium 8.8 mg/dl (8.5-10.1); Creatinine Clr Calc Pharmacy 34.8 ml/min; Est GFR (African American) 45.9; Est GFR (Non-African American) 39.6; Potassium 4.2 mmol/L (3.5-5.1)
[2018-11-24] MEDS: TIMOLOL MALEATE 0.25% OP SOLN 5 ML BTL OP SCH (08:01)
--- NOTE | 2018-11-24 08:37 | Surgery Progress Note ---
Date of Service November 24, 2018 Assessment & Plan (1) Partial bowel obstruction: seen with Dr. Figueroa more distended, symptomatic, recommend NG tube when she will agree Subjective N/V this morning x1, doesn't want NG tube Physical Exam Gastrointestinal (Abdomen): Inspection/Auscultation: + abdomen distended (more this morning) Percussion/Palpation: abdomen soft; abdomen nontender Results & Data Vital Signs (Past 12 Hours) Vital Signs Temp Pulse Pulse Resp BP BP Pulse Ox 11/24/18 04:07 36.4 C L 79 16 191/81 H 97 11/24/18 03:43 74 11/24/18 03:16 75 16 169/80 H 96 11/24/18 02:30 76 163/114 H 11/24/18 01:29 76 16 161/84 H 95 11/24/18 00:01 78 16 170/86 H 94 11/23/18 22:31 71 16 185/82 H 96 11/23/18 22:15 98 11/23/18 21:38 36.8 C 79 16 162/126 H 95 PG Care Time/CCT Total # of Minutes Spent Total Time Spent with Patient: Total time spent is greater than 50% in coordination of care (as documented) at patient's floor/unit and/or counseling patient: (1) Partial bowel obstruction Intestinal obstruction type: unspecified Qualified Code(s): K56.600 - Partial intestinal obstruction, unspecified as to cause
--- NOTE | 2018-11-24 08:55 | XRay Report ---
XR chest 1V portable CLINICAL HISTORY: ff up COMPARISON STUDY: Chest radiograph November 23, 2018. FINDINGS: There are median sternotomy wires and a prosthetic mitral valve. Cardiomegaly is again note d. Pulmonary edema persists. There is no pneumothorax or pleural effusion. There is no consolidation to suggest pneumonia. IMPRESSION: Persistent pulmonary edema. Electronically signed by: Robin Harkins M.D. 11/24/2018 8:54 AM
[2018-11-24] MEDS ORDERED: TAMSULOSIN HCL 0.4 MG CAP PO SCH (09:00)
--- NOTE | 2018-11-24 09:28 | CT Scan Report ---
CT OF THE ABDOMEN AND PELVIS WITH CONTRAST CLINICAL HISTORY: Abdominal pain. Ostomy. COMPARISON STUDY: CT of the abdomen and pelvis August 12, 2015 TECHNIQUE: Following IV administration of 93 mL of Optiray-320, axial images of the abdomen and pelvi s were obtained from the lung bases to the proximal femurs. Images were reviewed in the axial, sagitt al, and coronal planes. IV contrast was administered without complication. Automated exposure contro l was utilized for the study. A dose lowering technique was utilized adhering to the principles of A JALIL. CT DOSE: 938.79 mGy.cm FINDINGS: Interlobular septal thickening within the lower lungs is noted. There is moderate cardiomeg krystyna. No pneumatosis, free air or portal venous gas is present. The liver, spleen, right adrenal gland and pancreas are unremarkable. A left adrenal nodule is unchanged since CT of August 12, 2015. This is benign. There is no biliary ductal dilatation status post cholecystectomy. There is no pancreatic coral jomar dilatation. A few right renal calculi measure up to 9 mm. A 6 mm right ureteropelvic junction veronique culus results in moderate right hydronephrosis with adjacent infiltration. There is no left hydroneph rosis. The proximal to mid small bowel is fluid-filled and moderately dilated. Transition point is li aaliyah within the pelvis. Distal small bowel is decompressed. A previous colorectal resection is noted. Ventral hernia contains a portion of the transverse colon without resultant bowel obstruction. There is no lymphadenopathy. Old compression fractures are noted. IMPRESSION: 1. Findings consistent with a moderate grade small bowel obstruction with transition point likely wit hin the pelvis. 2. 6 mm right ureteropelvic junction calculus which results in moderate right hydronephrosis. Right-s ided nephrolithiasis. 3. Mild interstitial pulmonary edema. Electronically signed by: Robin Harkins M.D. 11/24/2018 9:26 AM
[2018-11-24] MEDS ORDERED: FUROSEMIDE 20 MG in SYRINGE 0 ML IV ONE (09:30)
--- NOTE | 2018-11-24 09:46 | Urology Consultation ---
Date of Consultation November 24, 2018 Assessment & Plan (1) Kidney stones: Right proximal ureteral calculus with obstruction Although difficult to definitively say, it appears that all of her discomfort is bowel related and not kidney related Given the lack of infectious signs, lack of definitive renal colic and normal creatinine, I favor observation and treatment of her bowel issues before considering any intervention for the kidney stone Presuming she recovers appropriately from the bowel issues, she would likely be able to have a single setting ureteroscopy to treat the stones in her right kidney - this should occur as an outpatient History of Present Illness Attending Physician: Jaren Trejo MD History of Present Illness Comorbid 83-year-old female with partial small bowel obstruction, nausea, vomiting and diffuse abdominal pain History of similar occurrences Diverting colostomy Incidental to the symptoms she was found to have a right proximal ureteral calculus with modest hydronephrosis She denies any clear renal colic type painpointing to anterior abdominal discomfort as her primary complaint No prior history of kidney stone surgery or intervention Denies any dysuria or gross hematuria Creatinine 1.4 on admission, 1.2 now (baseline is typically been around 1.3) UA with microscopic blood onlynumerous epithelial cells She is uncomfortable appearing upon evaluationNG tube in place Reports that her pain has improved since NG placement Allergies Allergy/AdvReac Type Severity Reaction Status Date / Time iodine Allergy Intermediate ITCHING Verified 11/23/18 22:24 lisinopril Allergy Unknown Verified 11/23/18 22:24 Sulfa (Sulfonamide Allergy Unknown ITCHING Verified 11/23/18 22:24 Antibiotics) Home Medications Home Medications Medication Instructions Recorded Confirmed Type nitroglycerin [Nitrostat] 0.4 mg SUBLINGUAL UD PRN #0 btl 08/12/13 11/23/18 History levothyroxine 50 mcg PO QAM #0 tab 08/12/15 11/23/18 History cholecalciferol (vitamin D3) 2,000 unit PO QAM #0 cap 03/14/16 11/23/18 History [Vitamin D3] insulin aspart U-100 [Novolog 1 sliding scale dose SUBCUT TIDM #0 03/14/16 11/23/18 History U-100 Insulin aspart] rosuvastatin 10 mg PO HS #0 03/14/16 11/23/18 History calcitriol 0.5 mcg PO QAM 11/23/18 11/23/18 History denosumab [Prolia] 60 mg SUBCUT Q6M 11/23/18 11/23/18 History digoxin 125 mcg PO PM 11/23/18 11/23/18 History insulin degludec [Tresiba U-100 27 unit SUBCUT HS 11/23/18 11/23/18 History Insulin] metoprolol tartrate 100 mg PO BID 11/23/18 11/23/18 History timolol maleate 1 drp OPHTHALMIC (EYE) QAM 11/23/18 11/23/18 History warfarin [Coumadin] 2.5 mg PO 3XWK 11/23/18 11/23/18 History warfarin [Coumadin] 5 mg PO 4XWK 11/23/18 11/23/18 History Patient History Medical History History of rectal cancer (Chronic) History of upper gastrointestinal bleeding (Chronic) "duodenal ulcer 2013" 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) "Rectal bleeding Status post colonoscopy and biopsy 01/14/2015 Adenocarcinoma the rectum moderately differentiated Status post ultrasound staging [id number] Plan concomitant radiation and chemotherapy Chemotherapy comprised of Xeloda Radiation completed 05/27/2015 received 5040 cGy" On 03/23/15 15:33 Sol Zamora wrote "Rectal bleeding Status post colonoscopy and biopsy 01/14/2015 Adenocarcinoma the rectum moderately differentiated Status post ultrasound staging [id number] Plan concomitant radiation and chemotherapy Chemotherapy comprised of Xeloda" Diabetes mellitus, type 2 (Chronic) 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) History of breast cancer (Chronic) Hypothyroidism (Chronic) Surgical History Status post cardiac catheterization (Chronic) Status post coronary artery bypass grafting (Chronic) Status post partial colectomy (Chronic) Status post colostomy (Chronic) Status post partial mastectomy (Chronic) Family History Other No pertinent family history Social History Preferred Language: Korean 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 Ability: Effective College Hire Required: No Beliefs That Will Affect Care: None Current Living Situation: Alone Feels Safe at Home: Yes Safety Concerns: Feels Safe At This Time Smoking Status: Never smoker Hx Alcohol Use: No Hx Substance Use: No Review of Systems Constitutional: + body aches; no fever, no chills and no fatigue Eyes: no worsening vision Ear, Nose, Mouth, Throat: no facial pain and no pain with swallowing Respiratory: no cough and no dyspnea Cardiovascular: no chest pain and no palpitations Gastrointestinal: + abdominal pain, + bloating, + nausea and + vomiting Genitourinary: no dysuria, no difficulty urinating, no urinary frequency and no hematuria Musculoskeletal: no back pain Integumentary: no rash and no urticaria Neurologic: no gait abnormality and no unsteadiness Psychiatric: no behavioral changes and no depression Endocrine: no fatigue Physical Exam Constitutional: well developed and well nourished Uncomfortable appearingNG tube in place, bilious output Neck: neck nontender Respiratory: normal respiratory effort; no respiratory distress and does not use accessory muscles Cardiovascular: Rate/Rhythm: regular rate Vessels: radial pulses present Extremities: no edema Gastrointestinal (Abdomen): Percussion/Palpation: + abdomen tender and abdomen soft (Protuberant around her stoma site, stoma bag in placeopaque, no erythema, no rebound, no guarding, no right CVA tenderness, no left CVA tenderness); no guarding Musculoskeletal: Head/Neck/Chest: normocephalic and head atraumatic Extremities: extremities normal to inspection Skin: no rashes and no lesions Trauma: no evidence of skin trauma Neurologic: awake; not obtunded Speech / Cognition: normal speech Motor/Sensory: no tremor Psychiatric: Orientation: alert and oriented x 3 Lymphatic: no lymphadenopathy Results & Data Vital Signs (Past 12 Hours) Vital Signs Temp Pulse Pulse Resp BP BP Pulse Ox 11/24/18 08:37 36.6 C 80 18 167/83 H 95 11/24/18 04:07 36.4 C L 79 16 191/81 H 97 11/24/18 03:43 74 11/24/18 03:16 75 16 169/80 H 96 11/24/18 02:30 76 163/114 H 11/24/18 01:29 76 16 161/84 H 95 11/24/18 00:01 78 16 170/86 H 94 11/23/18 22:31 71 16 185/82 H 96 11/23/18 22:15 98 PG Care Time/CCT Total # of Minutes Spent Total Time Spent with Patient: Total time spent is greater than 50% in coordination of care (as documented) at patient's floor/unit and/or counseling patient:
[2018-11-24] MEDS: METOPROLOL TARTRATE 1 MG/ML VIAL IV SCH ×3 (10:35→18:15)
--- NOTE | 2018-11-24 15:56 | Hospitalist Progress Note ---
Date of Service November 24, 2018 Assessment & Plan (1) Hypertensive urgency: Secondary to abdominal discomfort Partial medication non-compliance - patient takes Lopressor BID home rx only once daily by preference SBO History of rectal cancer status post surgery Obstructive uropathy incidental finding on CT, ARF on CRI CAD status post CABG A. fib on Coumadin, rate controlled, INR therapeutic Hyperlipidemia statin Rx past history PE/DVT breast cancer status post surgery DM 2 insulin requiring, well-controlled as of recent hemoglobin A1c of 7.1 last February 2019 past tobacco abuse Medical telemetry for hypertensive urgency Facilitate home beta-lam, patient counseled about importance of taking prescribed twice daily dosing for Lopressor. Bowel rest for SBO Surgery consult RE SBO (Patient already seen at the ER by Dr. Figueroa). NGT if with emesis (Patient currently refusing upon description of procedure.) Flomax trial for obstructive uropathy Urology consult RE obstructive uropathy Strain urine, daily renal function, monitor creatinine response to IVF Basal insulin adjusted for bowel rest status, ISS BG goal 1 40-1 80, carb count coverage DVT prophylaxis. Coumadin INR goal between 2 and 3 if no surgical intervention, may need IV heparin while Coumadin on hold interim if INR subtherapeutic Full code (2) Small bowel obstruction: Patient is an 83-year-old female with a history of coronary disease/CABG, atrial fibrillation on Coumadin, PE/DVT on Coumadin, Diabetes, hypertension, breast and rectal cancer status post urostomy, presenting with small bowel obstruction. Small bowel obstruction History of colostomy for rectal cancer Positive increase nausea and vomiting today NG tube placement ordered N.p.o. for now will convert medications to IV Referring IV fluids due to evidence of pulmonary congestion and possible CHF on chest x-ray, also with bilateral leg edema on physical exam We will monitor closely Hypertension Uncontrolled likely secondary to stress Will metoprolol to IV form Monitor closely Pulmonary edema Rule out congestive heart failure On room air, not in respiratory distress Chest x-ray: Positive pulmonary congestion, possible edema BNP elevated Echocardiogram: Ordered, pending Lasix 20 mg IV ordered Monitor input and output Coronary disease/CABG Denies chest pain Atrial fibrillation on chronic Coumadin Convert metoprolol 100 mg twice daily to metoprolol 5 mg IV every 6 hours We will convert digoxin to IV INR 2.2, INR daily PE/DVT, on chronic Coumadin INR 2.2, INR daily Diabetes type 2 Insulin sliding scale for now while n.p.o. History of breast and rectal cancer DVT prophylaxis INR therapeutic, usually Coumadin currently on hold Disposition Pending Subjective Follow-up for small bowel obstruction Seen sitting up in bed, nauseated, just had emesis of bilious fluid Minimal abdominal discomfort Denies chest pain, shortness of breath no palpitations, dizziness No other symptoms NG tube ordered by general surgery Review of Systems Review of Systems: All systems reviewed & are unremarkable except as noted in HPI & below Physical Exam Physical Exam: General- oriented x 3, not in distress, speaks in sentences with no effort or accessory muscle use Head- atraumatic Eyes- PERRL, EOMI, anicteric ENT- oropharynx clear Neck- supple, no JVD, no adenopathy, no thyromegaly; carotids +2/2, no bruits appreciated Lungs- clear to auscultation bilaterally, no rales/wheezes Heart- normal rate, regular rhythm; no murmur, no gallop, no rub appreciated Abdomen-hypoactive bowel sounds, mildly distended, soft, nontender, no masses or hepatosplenomegaly Extremities-mild lower leg edema bilaterally, no calf tenderness; peripheral pulses intact Neuro- alert, oriented x 3; CN 2-12 grossly intact; motor 5/5 bilaterally;sensation 100% on all extremities; no other gross focal neurologic deficits Skin- warm & dry Results & Data Vital Signs (Past 12 Hours) Vital Signs Temp Pulse Pulse Resp BP BP Pulse Ox 11/24/18 11:38 36.5 C 70 20 120/72 94 11/24/18 10:35 74 164/90 H 11/24/18 10:33 164/90 H 11/24/18 08:37 36.6 C 80 18 167/83 H 95 11/24/18 04:07 36.4 C L 79 16 191/81 H 97 Laboratory Results Laboratory Results - last 24 hr 11/23/18 11/23/18 11/23/18 22:00 22:00 22:00 WBC 6.94 RBC 4.69 Hgb 14.6 Hct 43.7 MCV 93.2 MCH 31.1 MCHC 33.4 RDW Std Deviation 48.3 H RDW Coeff of Kei 14.3 Plt Count 218 MPV 9.9 Immature Gran % (Auto) 0.1 Neut % (Auto) 75.4 Lymph % (Auto) 13.5 Coles % (Auto) 8.1 Eos % (Auto) 2.6 Baso % (Auto) 0.3 Immature Gran # (Auto) 0.01 Neut # (Auto) 5.23 Lymph # (Auto) 0.94 L [place] # (Auto) 0.56 Eos # (Auto) 0.18 Baso # (Auto) 0.02 PT 23.8 H INR 2.5 H APTT PTT Ratio Sodium 142 Potassium 4.7 Chloride 107 Carbon Dioxide 32 Anion Gap 3.0 BUN 18 Creatinine 1.46 H Est Cr Clr Drug Dosing 29.6 Est GFR ( Amer) 37.6 Est GFR (Non-Af Amer) 32.5 BUN/Creatinine Ratio 12.5 Glucose 251 H POC Glucose Calcium 9.5 Magnesium 2.1 Total Bilirubin 0.5 Direct Bilirubin 0.2 AST 18 ALT 19 Alkaline Phosphatase 65 Troponin I < 0.015 NT-Pro-B Natriuret Pep Total Protein 7.6 Albumin 3.2 L Globulin 4.4 H Albumin/Globulin Ratio 0.7 L Lipase 238 Urine Color Urine Appearance Urine pH Ur Specific [place] Urine Protein Urine Glucose (UA) Urine Ketones Urine Blood Urine Nitrite Urine Bilirubin Urine Urobilinogen Ur Leukocyte Esterase Urine WBC (Auto) Urine RBC (Auto) U Hyaline Cast (Auto) U Epithel Cells (Auto) Urine Bacteria (Auto) Digoxin 11/23/18 11/23/18 11/24/18 22:00 22:00 00:01 WBC RBC Hgb Hct MCV MCH MCHC RDW Std Deviation RDW Coeff of Kei Plt Count MPV Immature Gran % (Auto) Neut % (Auto) Lymph % (Auto) [place] % (Auto) Eos % (Auto) Baso % (Auto) Immature Gran # (Auto) Neut # (Auto) Lymph # (Auto) [place] # (Auto) Eos # (Auto) Baso # (Auto) PT INR APTT 31.1 H PTT Ratio 1.1 Sodium Potassium Chloride Carbon Dioxide Anion Gap BUN Creatinine Est Cr Clr Drug Dosing Est GFR ( Amer) Est GFR (Non-Af Amer) BUN/Creatinine Ratio Glucose POC Glucose Calcium Magnesium Total Bilirubin Direct Bilirubin AST ALT Alkaline Phosphatase Troponin I NT-Pro-B Natriuret Pep Total Protein Albumin Globulin Albumin/Globulin Ratio Lipase Urine Color Yellow Urine Appearance Clear Urine pH 6.5 Ur Specific [place] 1.019 Urine Protein Negative Urine Glucose (UA) 1+ H Urine Ketones Negative Urine Blood Negative Urine Nitrite Negative Urine Bilirubin Negative Urine Urobilinogen Negative Ur Leukocyte Esterase Trace H Urine WBC (Auto) 1-5 Urine RBC (Auto) 0-4 U Hyaline Cast (Auto) 0 U Epithel Cells (Auto) >30 H Urine Bacteria (Auto) Negative Digoxin 1.0 11/24/18 11/24/18 11/24/18 03:50 05:35 05:35 WBC 6.85 RBC 4.70 Hgb 14.4 Hct 43.6 MCV 92.8 MCH 30.6 MCHC 33.0 RDW Std Deviation 48.0 H RDW Coeff of Kei 14.2 Plt Count 209 MPV 10.0 Immature Gran % (Auto) 0.3 Neut % (Auto) 76.2 Lymph % (Auto) 14.9 [place] % (Auto) 6.7 Eos % (Auto) 1.6 Baso % (Auto) 0.3 Immature Gran # (Auto) 0.02 Neut # (Auto) 5.22 Lymph # (Auto) 1.02 L [place] # (Auto) 0.46 Eos # (Auto) 0.11 Baso # (Auto) 0.02 PT 21.7 H INR 2.2 H APTT 31.7 H PTT Ratio 1.2 Sodium Potassium Chloride Carbon Dioxide Anion Gap BUN Creatinine Est Cr Clr Drug Dosing Est GFR ( Amer) Est GFR (Non-Af Amer) BUN/Creatinine Ratio Glucose POC Glucose 205 H Calcium Magnesium Total Bilirubin Direct Bilirubin AST ALT Alkaline Phosphatase Troponin I NT-Pro-B Natriuret Pep Total Protein Albumin Globulin Albumin/Globulin Ratio Lipase Urine Color Urine Appearance Urine pH Ur Specific [place] Urine Protein Urine Glucose (UA) Urine Ketones Urine Blood Urine Nitrite Urine Bilirubin Urine Urobilinogen Ur Leukocyte Esterase Urine WBC (Auto) Urine RBC (Auto) U Hyaline Cast (Auto) U Epithel Cells (Auto) Urine Bacteria (Auto) Digoxin 11/24/18 11/24/18 11/24/18 05:35 05:35 11:39 WBC RBC Hgb Hct MCV MCH MCHC RDW Std Deviation RDW Coeff of Kei Plt Count MPV Immature Gran % (Auto) Neut % (Auto) Lymph % (Auto) [place] % (Auto) Eos % (Auto) Baso % (Auto) Immature Gran # (Auto) Neut # (Auto) Lymph # (Auto) [place] # (Auto) Eos # (Auto) Baso # (Auto) PT INR APTT PTT Ratio Sodium 142 Potassium 4.2 Chloride 108 H Carbon Dioxide 26 Anion Gap 8.0 BUN 16 Creatinine 1.24 H Est Cr Clr Drug Dosing 34.8 Est GFR ( Amer) 45.9 Est GFR (Non-Af Amer) 39.6 BUN/Creatinine Ratio 13.1 Glucose 199 H POC Glucose 264 H Calcium 8.8 Magnesium Total Bilirubin Direct Bilirubin AST ALT Alkaline Phosphatase Troponin I NT-Pro-B Natriuret Pep 2676 H Total Protein Albumin Globulin Albumin/Globulin Ratio Lipase Urine Color Urine Appearance Urine pH Ur Specific [place] Urine Protein Urine Glucose (UA) Urine Ketones Urine Blood Urine Nitrite Urine Bilirubin Urine Urobilinogen Ur Leukocyte Esterase Urine WBC (Auto) Urine RBC (Auto) U Hyaline Cast (Auto) U Epithel Cells (Auto) Urine Bacteria (Auto) Digoxin
[2018-11-24] MEDS: INSULIN GLARGINE SOLOSTAR 100 UNITS/ML 3 ML PEN SQ SCH (20:49)
[2018-11-24] MEDS: DIGOXIN 0.125 MG TAB PO SCH (20:52)
[2018-11-24] MEDS: ROSUVASTATIN CALCIUM 10 MG TAB PO SCH (20:52)
[2018-11-24] MEDS ORDERED: INSULIN GLARGINE SOLOSTAR 100 UNITS/ML 3 ML PEN SQ SCH (21:00)
[2018-11-25] MEDS: INSULIN ASPART 100 UNITS/ML 3 ML PEN SC SCH ×4 (00:19→18:27)
[2018-11-25] MEDS: METOPROLOL TARTRATE 1 MG/ML VIAL IV SCH ×5 (00:20→23:58)
[2018-11-25] MEDS: PROMETHAZINE HCL 12.5 MG in SODIUM CHLORIDE 0.9% 50 ML IV PRN (05:28)
[2018-11-25] MEDS: LEVOTHYROXINE SODIUM 50 MCG TABLET PO SCH (05:37)
[2018-11-25 07:11] LABS: Basophils # (auto) 0.01 K/uL (0-0.2); Basophils % (auto) 0.2 %; Eosinophils # (auto) 0.06 K/uL (0-0.5); Hematocrit (blood only) 45.6 % (37-47); Hemoglobin 14.8 g/dL (12.0-16.0); Immature Granulocytes # (auto) 0.01 K/uL (0.00-0.02); Immature Granulocytes % (auto) 0.2 %; Lymphocytes # (auto) 0.71 K/uL (1.2-3.4); Lymphocytes % (auto) 11.8 %; Mean Corpuscular Hemoglobin 30.1 pg (25-34); Mean Corpuscular Hgb Conc 32.5 g/dL (32-36); Mean Corpuscular Volume 92.9 fL (80-100); Mean Platelet Volume 9.8 fL (7.4-10.4); Monocytes # (auto) 0.53 K/uL (0.11-0.59); Monocytes % (auto) 8.8 %; Neutrophils # (auto) 4.68 K/uL (1.4-6.5); Platelet Count 201 K/uL (130-400); RDW Coefficient of Variation 14.3 % (11.5-14.5); RDW Standard Deviation 48.6 fL (36.4-46.3); Red Blood Count 4.91 M/uL (4.2-5.4)
[2018-11-25] MEDS: TAMSULOSIN HCL 0.4 MG CAP PO SCH (07:34)
[2018-11-25 07:43] LABS: BUN Creatinine Ratio 14.6 (10-20); Creatinine Clr Calc Pharmacy 29.4 ml/min; Est GFR (African American) 39.3; Est GFR (Non-African American) 33.9
--- NOTE | 2018-11-25 08:14 | Surgery Progress Note ---
Date of Service November 25, 2018 Assessment & Plan (1) Small bowel obstruction: Hospital Day#2 for small bowel obstruction NGT in place- appears to be working now Will order small bowel follow through today with contrast via NGT for further evaluation Patient seen and examined with Dr. Figueroa Subjective Patient states she had a an episode of emesis with NGT in place, but none since overnight. Feels less distended than yesterday. Hasn't noticed any ostomy output. She is voiding. Physical Exam Physical Exam: awoke from sleep, easily arousable and communicative Gastrointestinal (Abdomen): NGT in place with ~200cc brown/bilious fluid. Ostomy bag with no output. Results & Data Vital Signs (Past 12 Hours) Vital Signs Temp Pulse Pulse Resp BP BP Pulse Ox 11/25/18 07:21 36.6 C 78 16 137/62 97 11/25/18 05:29 79 153/83 H 11/25/18 03:52 36.6 C 78 20 151/74 H 96 11/25/18 00:20 83 125/59 L 11/25/18 00:00 80 11/24/18 23:21 36.1 C L 83 19 125/59 L 93 PG Care Time/CCT Total # of Minutes Spent Total Time Spent with Patient: Total time spent is greater than 50% in coordination of care (as documented) at patient's floor/unit and/or counseling patient:
[2018-11-25] MEDS: TIMOLOL MALEATE 0.25% OP SOLN 5 ML BTL OP SCH (08:20)
--- NOTE | 2018-11-25 09:32 | Hospitalist Progress Note ---
Date of Service November 25, 2018 Assessment & Plan (1) Hypertensive urgency: Secondary to abdominal discomfort Partial medication non-compliance - patient takes Lopressor BID home rx only once daily by preference SBO History of rectal cancer status post surgery Obstructive uropathy incidental finding on CT, ARF on CRI CAD status post CABG A. fib on Coumadin, rate controlled, INR therapeutic Hyperlipidemia statin Rx past history PE/DVT breast cancer status post surgery DM 2 insulin requiring, well-controlled as of recent hemoglobin A1c of 7.1 last February 2019 past tobacco abuse Medical telemetry for hypertensive urgency Facilitate home beta-lam, patient counseled about importance of taking prescribed twice daily dosing for Lopressor. Bowel rest for SBO Surgery consult RE SBO (Patient already seen at the ER by Dr. Figueroa). NGT if with emesis (Patient currently refusing upon description of procedure.) Flomax trial for obstructive uropathy Urology consult RE obstructive uropathy Strain urine, daily renal function, monitor creatinine response to IVF Basal insulin adjusted for bowel rest status, ISS BG goal 1 40-1 80, carb count coverage DVT prophylaxis. Coumadin INR goal between 2 and 3 if no surgical intervention, may need IV heparin while Coumadin on hold interim if INR subtherapeutic Full code (2) Small bowel obstruction: Patient is an 83-year-old female with a history of coronary disease/CABG, atrial fibrillation on Coumadin, PE/DVT on Coumadin, Diabetes, hypertension, breast and rectal cancer status post urostomy, presenting with small bowel obstruction. Small bowel obstruction History of colostomy for rectal cancer no nausea/vomiting NG tube drained at least 1 L yesterday xrays ordered to check NG tube functioning properly still without flatus or BM continue NG tube for now N.p.o. medications converted to IV Deferring IV fluids due to evidence of volume overload, improving now monitor closely appreciate Gen Surg Consult Hypertension improved converted metoprolol to IV form while NPO Monitor closely Pulmonary edema Rule out congestive heart failure On room air, not in respiratory distress Chest x-ray: Positive pulmonary congestion, possible edema BNP elevated Echocardiogram: noted Lasix 20 mg IV ordered, improved, repeat CXR improved Monitor input and output Coronary disease/CABG Denies chest pain Atrial fibrillation on chronic Coumadin Converted metoprolol 100 mg twice daily to metoprolol 5 mg IV every 6 hours Digoxin on hold INR 1.6 will need Heparin drip, will discuss with Dr. Lamas PE/DVT, on chronic Coumadin INR 1.6 last DVT 2 years ago as per patient will discuss with Dr. Lamas Diabetes type 2 Insulin sliding scale for now while n.p.o. Glycemic control consult History of breast and rectal cancer DVT prophylaxis on anticoagulation as noted above Disposition Pending Subjective ff up for small bowel obstruction seen resting in bed, comfortable, sleeping but easily rousable states she feels better than yesterday no nausea , abdominal pain this morning no flatus or BMs yet no dyspnea, chest pain, palpitations, dizziness no other symptoms Review of Systems Review of Systems: All systems reviewed & are unremarkable except as noted in HPI & below Physical Exam Physical Exam: General- oriented x 3, not in distress, speaks in sentences with no effort or accessory muscle use Eyes- anicteric Neck- no JVD NG tube in place with scant bilious output Lungs- mild rales at the bases, no wheezing good air entry bilaterally Heart- normal rate, regular rhythm; no murmurs Abdomen- normal bowel sounds, nondistended, soft, nontender Extremities-mild pretibial edema, no calf tenderness Neuro- alert, oriented x 3; no gross focal neurologic deficits Skin- warm & dry Results & Data Vital Signs (Past 12 Hours) Vital Signs Temp Pulse Pulse Resp BP BP Pulse Ox 11/25/18 07:21 36.6 C 78 16 137/62 97 11/25/18 05:29 79 153/83 H 11/25/18 03:52 36.6 C 78 20 151/74 H 96 11/25/18 00:20 83 125/59 L 11/25/18 00:00 80 11/24/18 23:21 36.1 C L 83 19 125/59 L 93 Laboratory Results Laboratory Results - last 24 hr 11/24/18 11/24/18 11/24/18 11:39 16:36 20:47 WBC RBC Hgb Hct MCV MCH MCHC RDW Std Deviation RDW Coeff of Kei Plt Count MPV Immature Gran % (Auto) Neut % (Auto) Lymph % (Auto) [place] % (Auto) Eos % (Auto) Baso % (Auto) Immature Gran # (Auto) Neut # (Auto) Lymph # (Auto) [place] # (Auto) Eos # (Auto) Baso # (Auto) PT INR Sodium Potassium Chloride Carbon Dioxide Anion Gap BUN Creatinine Est Cr Clr Drug Dosing Est GFR ( Amer) Est GFR (Non-Af Amer) BUN/Creatinine Ratio Glucose POC Glucose 264 H 197 H 186 H Calcium 11/24/18 11/25/18 11/25/18 23:53 05:34 06:52 WBC 6.00 RBC 4.91 Hgb 14.8 Hct 45.6 MCV 92.9 MCH 30.1 MCHC 32.5 RDW Std Deviation 48.6 H RDW Coeff of Kei 14.3 Plt Count 201 MPV 9.8 Immature Gran % (Auto) 0.2 Neut % (Auto) 78.0 Lymph % (Auto) 11.8 [place] % (Auto) 8.8 Eos % (Auto) 1.0 Baso % (Auto) 0.2 Immature Gran # (Auto) 0.01 Neut # (Auto) 4.68 Lymph # (Auto) 0.71 L [place] # (Auto) 0.53 Eos # (Auto) 0.06 Baso # (Auto) 0.01 PT INR Sodium Potassium Chloride Carbon Dioxide Anion Gap BUN Creatinine Est Cr Clr Drug Dosing Est GFR ( Amer) Est GFR (Non-Af Amer) BUN/Creatinine Ratio Glucose POC Glucose 196 H 185 H Calcium 11/25/18 11/25/18 11/25/18 06:52 07:35 09:33 WBC RBC Hgb Hct MCV MCH MCHC RDW Std Deviation RDW Coeff of Kei Plt Count MPV Immature Gran % (Auto) Neut % (Auto) Lymph % (Auto) [place] % (Auto) Eos % (Auto) Baso % (Auto) Immature Gran # (Auto) Neut # (Auto) Lymph # (Auto) [place] # (Auto) Eos # (Auto) Baso # (Auto) PT 15.9 H INR 1.6 H Sodium 143 Potassium 4.0 Chloride 106 Carbon Dioxide 29 Anion Gap 9.0 BUN 21 H Creatinine 1.41 H Est Cr Clr Drug Dosing 29.4 Est GFR ( Amer) 39.3 Est GFR (Non-Af Amer) 33.9 BUN/Creatinine Ratio 14.6 Glucose 192 H POC Glucose 185 H Calcium 9.0
[2018-11-25 09:52] LABS: INR 1.6 (0.9-1.1); Prothrombin Time 15.9 Seconds (9.0-12.0)
--- NOTE | 2018-11-25 10:45 | XRay Report ---
XR chest 1V portable CLINICAL HISTORY: ff up pulmonary edema dyspnea COMPARISON STUDY: 11/24/2018 FINDINGS: Improved components of congestive failure. /Pulmonary edema. Moderate stable cardiac megaly . Tortuosity thoracic aorta. Diminished pulmonary vasculature. IMPRESSION: Improving congestive failure/pulmonary edema. The above report was generated using voice recognition software. It may contain grammatical, syntax or spelling errors. Electronically signed by: Moe Rendon M.D. 11/25/2018 10:43 AM
--- NOTE | 2018-11-25 11:49 | Fluoroscopy Report ---
FL small bowel study CLINICAL HISTORY: Small bowel obstruction. COMPARISON STUDY: Abdomen and pelvis CT 11/23/2018. FLUOROSCOPY TIME: None.. FINDINGS: Induction Coordination Power Engineer images demonstrate a small amount of residual contrast within the bladder from the re cent CT examination. Nasogastric tube is seen in the distal stomach. Multiple overhead images of the small bowel were obtained following the injection of barium contrast through the indwelling nasogastr ic tube. Mildly dilated loops of proximal to mid small bowel are again noted. These measure up to 4.3 cm in diameter. These are not simply changed. The distal small bowel is normal in caliber. Contrast extends into the colon in the ostomy bag x 2 h and 10 minutes. Therefore, findings suggest a partial small bowel obstruction with the transition point at the deep pelvis as seen on the prior CT examinat ion. IMPRESSION: Above findings suggest a partial small bowel obstruction with the transition point at the deep pelvis as seen on the prior CT examination. Electronically signed by: Ridge Cabrera M.D. 11/25/2018 11:32 AM
[2018-11-25] MEDS ORDERED: Heparin IV Standard *NO* Bolus IV SCH (12:15)
[2018-11-25] MEDS: HEPARIN SODIUM/DEXTROSE 25,000 UNITS/500 ML BAG IV SCH (12:50)
--- NOTE | 2018-11-25 15:20 | Urology Progress Note ---
Date of Service November 25, 2018 Assessment & Plan (1) Kidney stones: 6mm right UPJ stone, resulting hydronephrosis. No pain today or urinary bother. Will arrange outpatient urology follow up for treatment of her stone. Will continue to intermittently follow. Please contact our service with change in patient status. Subjective 83 YO female with 6mm right UPJ stone. Patient reports feeling somewhat better today. Denies pain. Voiding spontaneously. Denies fevers/chills. Review of Systems Review of Systems: Per HPI. Physical Exam Physical Exam: NAD. Resp effort normal. ENMT: +NG continuous suction. Abd nondistended. A&Ox3, appropriate affect. Results & Data Vital Signs (Past 12 Hours) Vital Signs Temp Pulse Pulse Resp BP BP Pulse Ox 11/25/18 11:58 81 136/79 11/25/18 11:21 36.5 C 81 18 136/79 96 11/25/18 07:21 36.6 C 78 16 137/62 97 11/25/18 05:29 79 153/83 H 11/25/18 03:52 36.6 C 78 20 151/74 H 96
[2018-11-25] MEDS ORDERED: D5W AND NSS 1,000 ML IV SCH (16:45)
[2018-11-25] MEDS ORDERED: D5W AND NSS 500 ML IV SCH (17:15)
[2018-11-25] MEDS ORDERED: COUGH DROP (SUGAR FREE) LOZ 24 LOZ/1 BOX BUCCAL PRN (18:24)
[2018-11-25 19:33] LABS: Partial Thromboplastin Ratio 1.8
[2018-11-25 19:48] LABS: Partial Thromboplastin Time 49.6 Seconds (21.0-31.0)
[2018-11-25] MEDS: ROSUVASTATIN CALCIUM 10 MG TAB PO SCH (20:45)
[2018-11-25] MEDS: INSULIN GLARGINE SOLOSTAR 100 UNITS/ML 3 ML PEN SQ SCH (20:49)
[2018-11-25] MEDS: DIGOXIN 0.125 MG TAB PO SCH ×2 (20:49→21:44)
[2018-11-25] MEDS ORDERED: DIGOXIN 125 MCG in SYRINGE 9.5 ML IV STA (21:38)
[2018-11-25 22:06] LABS: Appearance Urine Cloudy (Clear); Bacteria Urine Automated Negative (Negative); Bilirubin Urine Negative (Negative); Blood Urine 3+ (Negative); Color Urine Orange; Epithelial Cell Urine Auto >30 /lpf (0-5); Glucose Urine UA Trace (Negative); Ketones Urine Negative (Negative); Leukocyte Esterase Urine 1+ (Negative); Nitrite Urine Negative (Negative); Protein Urine Trace (Negative); RBC Urine Automated >30 /hpf (0-4); Specific Gravity Urine 1.023 (1.000-1.030); Urobilinogen Urine Negative (Negative); pH Urine 5.5 (4.5-7.5)
[2018-11-26] MEDS: INSULIN ASPART 100 UNITS/ML 3 ML PEN SC SCH ×5 (00:20→21:15)
[2018-11-26] MEDS: SODIUM CHLORIDE 0.45 % 1,000 ML IV SCH (01:23)
[2018-11-26] MEDS: METOPROLOL TARTRATE 1 MG/ML VIAL IV SCH (06:13)
[2018-11-26] MEDS: LEVOTHYROXINE SODIUM 50 MCG TABLET PO SCH (06:14)
[2018-11-26 07:13] LABS: Basophils # (auto) 0.01 K/uL (0-0.2); Basophils % (auto) 0.2 %; Eosinophils # (auto) 0.12 K/uL (0-0.5); Eosinophils % (auto) 2.2 %; Hematocrit (blood only) 43.8 % (37-47); Hemoglobin 14.6 g/dL (12.0-16.0); Immature Granulocytes # (auto) 0.01 K/uL (0.00-0.02); Immature Granulocytes % (auto) 0.2 %; Lymphocytes # (auto) 0.83 K/uL (1.2-3.4); Lymphocytes % (auto) 14.9 %; Mean Corpuscular Hemoglobin 30.9 pg (25-34); Mean Corpuscular Hgb Conc 33.3 g/dL (32-36); Mean Corpuscular Volume 92.6 fL (80-100); Mean Platelet Volume 9.9 fL (7.4-10.4); Neutrophils % (auto) 73.5 %; Platelet Count 212 K/uL (130-400); RDW Coefficient of Variation 14.2 % (11.5-14.5); RDW Standard Deviation 48.4 fL (36.4-46.3); Red Blood Count 4.73 M/uL (4.2-5.4); White Blood Count 5.57 K/uL (4.8-10.8)
[2018-11-26 07:27] LABS: BUN Creatinine Ratio 17.2 (10-20); Calcium 8.4 mg/dl (8.5-10.1); Creatinine Clr Calc Pharmacy 35.8 ml/min; Est GFR (African American) 50.2; Est GFR (Non-African American) 43.4; Potassium 3.6 mmol/L (3.5-5.1)
[2018-11-26 07:30] LABS: INR 1.4 (0.9-1.1); Partial Thromboplastin Ratio 2.4; Prothrombin Time 14.4 Seconds (9.0-12.0)
[2018-11-26 07:49] LABS: Partial Thromboplastin Time 64.6 Seconds (21.0-31.0)
[2018-11-26] MEDS ORDERED: NURSING DECISION MEDICATION ONE (08:31)
[2018-11-26] MEDS: TAMSULOSIN HCL 0.4 MG CAP PO SCH (08:44)
[2018-11-26] MEDS: TIMOLOL MALEATE 0.25% OP SOLN 5 ML BTL OP SCH (08:45)
--- NOTE | 2018-11-26 11:02 | Surgery Progress Note ---
Date of Service November 26, 2018 Assessment & Plan (1) Small bowel obstruction: resolving, transition point in pelvis wants to try full liquids for dinner possibly low fiber diet tomorrow seen earlier by Dr. Figueroa Subjective no nausea, NG removed this Am, tolerated clear breakfast Physical Exam Gastrointestinal (Abdomen): Inspection/Auscultation: + visible herniation (parastomal); abdomen not distended Percussion/Palpation: abdomen soft; abdomen nontender Results & Data Vital Signs (Past 12 Hours) Vital Signs Temp Pulse Pulse Resp BP BP BP 11/26/18 07:56 36.8 C 84 137/81 11/26/18 07:29 36.6 C 79 18 109/66 11/26/18 06:13 89 107/71 11/26/18 03:07 37.1 C 83 19 141/79 H 11/26/18 00:00 82 11/25/18 23:58 75 117/75 11/25/18 23:11 37 C 75 18 117/75 Pulse Ox 11/26/18 07:56 95 11/26/18 07:29 94 11/26/18 06:13 11/26/18 03:07 94 11/26/18 00:00 11/25/18 23:58 11/25/18 23:11 94 PG Care Time/CCT Total # of Minutes Spent Total Time Spent with Patient: Total time spent is greater than 50% in coordination of care (as documented) at patient's floor/unit and/or counseling patient:
[2018-11-26] MEDS: HEPARIN SODIUM/DEXTROSE 25,000 UNITS/500 ML BAG IV SCH (11:03)
--- NOTE | 2018-11-26 13:14 | Hospitalist Progress Note ---
Date of Service November 26, 2018 Assessment & Plan (1) Small bowel obstruction: Patient is an 83-year-old female with a history of coronary disease/CABG, atrial fibrillation on Coumadin, PE/DVT on Coumadin, Diabetes, hypertension, breast and rectal cancer status post urostomy, presenting with small bowel obstruction. Small bowel obstruction History of colostomy for rectal cancer (+) BM NG tube out clear liquids monitor gente IV fluids Hypertension improved resume usual PO Metoprolol Acute Pulmonary edema On room air, not in respiratory distress Chest x-ray: Positive pulmonary congestion, possible edema BNP elevated Echocardiogram: noted Lasix 20 mg IV ordered, improved, repeat CXR improved gentle IV fluids Monitor input and output Coronary disease/CABG Denies chest pain Atrial fibrillation on chronic Coumadin Converted metoprolol 100 mg twice daily to metoprolol 5 mg IV every 6 hours Digoxin on hold INR 1.6 continue Heparin drip for now until possibility of emergent surgery ruled out will need heparin bridge when coumadin is resumed PE/DVT, on chronic Coumadin INR 1.6 last DVT 2 years ago as per patient heparin management as noted above Diabetes type 2 Insulin sliding scale for now while n.p.o. Glycemic control consult History of breast and rectal cancer DVT prophylaxis on anticoagulation as noted above Disposition Pending lives at home will need PT/OT evaluation Subjective ff up for small bowel obstruction seen resting in bed, comfortable off NG tube (+) stools per Colostomy no nausea, abdominal pain tolerating clears no dyspnea, chest pain, palpitations had 1 episode of epistaxis- Right nostril no other symptoms Review of Systems Review of Systems: All systems reviewed & are unremarkable except as noted in HPI & below Physical Exam Physical Exam: General- oriented x 3, not in distress, speaks in sentences with no effort or accessory muscle use Eyes- anicteric Neck- no JVD Lungs- clear breath sounds bilaterally,no crackles Heart- normal rate, regular rhythm; no murmurs Abdomen- normal bowel sounds, nondistended, soft, nontender Colostomy: soft, brown stool, small amount Extremities- no pretibial edema, no calf tenderness Neuro- alert, oriented x 3; no gross focal neurologic deficits Skin- warm & dry Results & Data Vital Signs (Past 12 Hours) Vital Signs Temp Pulse Pulse Resp BP BP BP 11/26/18 11:18 36.7 C 82 20 123/79 11/26/18 07:56 36.8 C 84 137/81 11/26/18 07:29 36.6 C 79 18 109/66 11/26/18 06:13 89 107/71 11/26/18 03:07 37.1 C 83 19 141/79 H Pulse Ox 11/26/18 11:18 95 11/26/18 07:56 95 11/26/18 07:29 94 11/26/18 06:13 11/26/18 03:07 94
[2018-11-26] MEDS: OXYMETAZOLINE 0.05% 30 ML BTL PRN (15:07)
[2018-11-26] MEDS ORDERED: DIGOXIN 125 MCG in SYRINGE 9.5 ML IV SCH (16:00)
[2018-11-26] MEDS: DIGOXIN 0.125 MG TAB PO SCH (16:29)
--- NOTE | 2018-11-26 20:54 | Hospitalist Progress Note ---
Date of Service November 26, 2018 Subjective Made aware by RN of painless hematuria symptoms. Epistaxis episode earlier as per RN Hemoglobin drop to 13.6 from 14.6 in a.m. AP Painless hematuria, history of obstructive uropathy rule out UTI Intermittent epistaxis IV heparin anticoagulation for A. fib while Coumadin on hold Hemoglobin drop from baseline in a.m. Hold IV heparin for now. Trend H&H Will relay to AM provider. Results & Data Vital Signs (Past 12 Hours) Vital Signs Temp Pulse Pulse Resp BP Pulse Ox 11/26/18 19:26 36.9 C 98 H 20 123/79 94 11/26/18 17:39 90 11/26/18 16:29 89 11/26/18 15:48 36.7 C 89 20 106/71 95 11/26/18 11:18 36.7 C 82 20 123/79 95
[2018-11-26] MEDS: METOPROLOL TARTRATE 100 MG TAB PO SCH (21:07)
[2018-11-26] MEDS: ROSUVASTATIN CALCIUM 10 MG TAB PO SCH (21:10)
[2018-11-26 21:12] LABS: Bacteria Urine Automated Negative (Negative); Blood Urine 3+ (Negative); Epithelial Cell Urine Auto >30 /lpf (0-5); Glucose Urine UA Trace (Negative); Ketones Urine Negative (Negative); Leukocyte Esterase Urine 1+ (Negative); Nitrite Urine Negative (Negative); Protein Urine 2+ (Negative); RBC Urine Automated >30 /hpf (0-4); Urobilinogen Urine Negative (Negative)
[2018-11-26 21:17] LABS: Bilirubin Urine Negative (Negative); Ictotest Urine Negative (Negative)
[2018-11-26 21:35] LABS: Appearance Urine Turbid (Clear); Color Urine Red
[2018-11-26 21:37] LABS: Basophils # (auto) 0.01 K/uL (0-0.2); Basophils % (auto) 0.2 %; Eosinophils # (auto) 0.11 K/uL (0-0.5); Eosinophils % (auto) 1.8 %; Hematocrit (blood only) 41.5 % (37-47); Hemoglobin 13.6 g/dL (12.0-16.0); Immature Granulocytes # (auto) 0.01 K/uL (0.00-0.02); Immature Granulocytes % (auto) 0.2 %; Lymphocytes # (auto) 1.07 K/uL (1.2-3.4); Lymphocytes % (auto) 17.5 %; Mean Corpuscular Hemoglobin 30.4 pg (25-34); Mean Corpuscular Hgb Conc 32.8 g/dL (32-36); Mean Corpuscular Volume 92.6 fL (80-100); Mean Platelet Volume 9.9 fL (7.4-10.4); Monocytes # (auto) 0.62 K/uL (0.11-0.59); Monocytes % (auto) 10.1 %; Neutrophils # (auto) 4.29 K/uL (1.4-6.5); Neutrophils % (auto) 70.2 %; Platelet Count 198 K/uL (130-400); RDW Coefficient of Variation 14.2 % (11.5-14.5); Red Blood Count 4.48 M/uL (4.2-5.4); White Blood Count 6.11 K/uL (4.8-10.8)
[2018-11-26 21:58] LABS: Partial Thromboplastin Ratio 2.1
[2018-11-26 22:01] LABS: Partial Thromboplastin Time 56.1 Seconds (21.0-31.0)
[2018-11-26] MEDS: INSULIN GLARGINE SOLOSTAR 100 UNITS/ML 3 ML PEN SQ SCH (22:12)
[2018-11-27] MEDS: LEVOTHYROXINE SODIUM 50 MCG TABLET PO SCH (06:22)
[2018-11-27 07:24] LABS: Basophils # (auto) 0.01 K/uL (0-0.2); Basophils % (auto) 0.2 %; Eosinophils # (auto) 0.11 K/uL (0-0.5); Eosinophils % (auto) 2.1 %; Hematocrit (blood only) 41.7 % (37-47); Hemoglobin 13.6 g/dL (12.0-16.0); Immature Granulocytes # (auto) 0.01 K/uL (0.00-0.02); Immature Granulocytes % (auto) 0.2 %; Lymphocytes # (auto) 0.95 K/uL (1.2-3.4); Lymphocytes % (auto) 18.2 %; Mean Corpuscular Hemoglobin 30.2 pg (25-34); Mean Corpuscular Hgb Conc 32.6 g/dL (32-36); Mean Corpuscular Volume 92.5 fL (80-100); Mean Platelet Volume 9.8 fL (7.4-10.4); Monocytes # (auto) 0.54 K/uL (0.11-0.59); Monocytes % (auto) 10.3 %; Platelet Count 210 K/uL (130-400); RDW Coefficient of Variation 14.3 % (11.5-14.5); RDW Standard Deviation 48.3 fL (36.4-46.3); Red Blood Count 4.51 M/uL (4.2-5.4); White Blood Count 5.22 K/uL (4.8-10.8)
--- NOTE | 2018-11-27 07:49 | Surgery Progress Note ---
Date of Service November 27, 2018 Assessment & Plan (1) Small bowel obstruction: resolving advance to low fiber diet heparin on hold, no plans for surgery, anticoag per primary service seen with Dr. Figueroa Subjective no nausea, tolerating full liquids, c/o nose bleed yesterday and dark colored urine Physical Exam Gastrointestinal (Abdomen): Inspection/Auscultation: abdomen not distended Percussion/Palpation: abdomen soft; abdomen nontender Results & Data Vital Signs (Past 12 Hours) Vital Signs Temp Pulse Pulse Resp BP Pulse Ox 11/27/18 07:20 36.6 C 79 20 123/71 95 11/27/18 07:16 78 11/27/18 04:56 101 H 11/27/18 04:00 36.7 C 80 19 109/71 92 11/26/18 23:00 37.1 C 84 20 112/75 95 PG Care Time/CCT Total # of Minutes Spent Total Time Spent with Patient: Total time spent is greater than 50% in coordination of care (as documented) at patient's floor/unit and/or counseling patient:
[2018-11-27 07:54] LABS: BUN Creatinine Ratio 16.8 (10-20); Calcium 8.2 mg/dl (8.5-10.1); Creatinine Clr Calc Pharmacy 35.5 ml/min; Est GFR (African American) 49.7; Est GFR (Non-African American) 42.9; Potassium 3.7 mmol/L (3.5-5.1)
[2018-11-27] MEDS: TAMSULOSIN HCL 0.4 MG CAP PO SCH (07:59)
[2018-11-27] MEDS: METOPROLOL TARTRATE 100 MG TAB PO SCH ×2 (08:00→20:14)
[2018-11-27] MEDS: TIMOLOL MALEATE 0.25% OP SOLN 5 ML BTL OP SCH (08:00)
[2018-11-27] MEDS: INSULIN ASPART 100 UNITS/ML 3 ML PEN SC SCH ×4 (08:02→20:11)
[2018-11-27 08:11] LABS: INR 1.3 (0.9-1.1); Partial Thromboplastin Time 27.2 Seconds (21.0-31.0); Prothrombin Time 12.8 Seconds (9.0-12.0)
--- NOTE | 2018-11-27 08:55 | Hospitalist Progress Note ---
Date of Service November 27, 2018 Assessment & Plan (1) Small bowel obstruction: Patient is an 83-year-old female with a history of coronary disease/CABG, atrial fibrillation on Coumadin, PE/DVT on Coumadin, Diabetes, hypertension, breast and rectal cancer status post urostomy, presenting with small bowel obstruction. Small bowel obstruction History of colostomy for rectal cancer (+) BMs NG tube out advance diet to low fiber monitor d/c IV fluids in light of possible pulmonary edema Epistaxis Right nostril- site of NG tube in the setting of heparin drip for history of DVT, A fib -- Afrin BID, noseclip -- heparin discontinued overnight -- will consult ENT Hematuria Right UPJ stone, 6mm -- will re-consult Urology Hypertension improved continue PO Metoprolol Acute Pulmonary edema On room air, not in respiratory distress Chest x-ray: Positive pulmonary congestion, possible edema BNP elevated Echocardiogram: EF 55-60%, mild LVH Lasix 20 mg IV ordered, improved, repeat CXR improved gentle IV fluids given while patient was NPO-> now discontinued as PO diet resumed repeat CXR today as patient having rales again Monitor input and output Coronary disease/CABG Denies chest pain Atrial fibrillation on chronic Coumadin continue usual PO Metoprolol and Digoxin coumadin held in light of SBO, and placed on heparin drip in case emergent surgery was needed INR 1.3 heparin drip now discontinued in light of hematuria and epistaxis resume anticoagulation once ok with Urology, Otorhinolaryngology PE/DVT, on chronic Coumadin last DVT 2 years ago as per patient management of anticoagulation as noted above Diabetes type 2 Insulin sliding scale Glycemic control consult History of breast and rectal cancer DVT prophylaxis anticoagulation held for now due to epistaxis, hematuria resume once of with Urologist, ENT Disposition Pending lives at home will need PT/OT evaluation, may need Rehab Subjective ff up for small bowel obstruction seen resting in bed, comfortable not in distress no nausea, abdominal pain (+) soft/loose stools via Colostomy (+) persistent slow epistaxis, started last night (+) hematuria, no dysuria no chest pain, dyspnea, palpitations, dizziness denies other symptoms Review of Systems Review of Systems: All systems reviewed & are unremarkable except as noted in HPI & below Physical Exam Physical Exam: General- oriented x 3, not in distress, speaks in sentences with no effort or accessory muscle use Eyes- anicteric Nose- (+) slow oozing of blood, right nostril Neck- no JVD Lungs- (+) rales at the right base, clear on the left no wheezing Heart- normal rate, regular rhythm; no murmurs Abdomen- normal bowel sounds, nondistended, soft, nontender Colostomy: (+) loose/soft brown stool Extremities- no pretibial edema, no calf tenderness Neuro- alert, oriented x 3; no gross focal neurologic deficits Skin- warm & dry Results & Data Vital Signs (Past 12 Hours) Vital Signs Temp Pulse Pulse Resp BP Pulse Ox 11/27/18 07:20 36.6 C 79 20 123/71 95 11/27/18 07:16 78 11/27/18 04:56 101 H 11/27/18 04:00 36.7 C 80 19 109/71 92 11/26/18 23:00 37.1 C 84 20 112/75 95
--- NOTE | 2018-11-27 10:05 | Consultation Report ---
DATE OF CONSULTATION: 11/27/2018 OTOLARYNGOLOGY HEAD AND NECK SURGERY CONSULTATION I have been asked by Dr. Jaren Trejo to evaluate this patient with epistaxis. HISTORY OF PRESENT ILLNESS: The patient is an 83-year-old female who was admitted to [facility] Room on 11/23/2018 from the Emergency Room who complained of abdominal pain. She has been diagnosed with a partial bowel obstruction and as part of the treatment of that she had a nasogastric tube placed on the right hand side. She had this removed yesterday and ever since has had problems with intermittent right-sided epistaxis. She does have a history of epistaxis in the past. She is on chronic anticoagulation of warfarin given a history of myocardial infarction, status post coronary artery bypass grafting x3 in the past. Currently, her anticoagulation is on hold due to her potentially needing to undergo surgical intervention of her small-bowel obstruction. She has a history of rectal cancer and has a colostomy. Her heparin was discontinued last night, but she has continued to have some mild oozing from the right nostril. She also has a history of atrial fibrillation and history of pulmonary emboli and deep venous thrombosis which are other contributing factors for her chronic anticoagulation. ALLERGIES: IODINE, LISINOPRIL, SULFA DRUGS. CURRENT MEDICATIONS: Calcitriol, vitamin D, Prolia, digoxin, insulin sliding scale, levothyroxine, metoprolol, nitroglycerin p.r.n., rosuvastatin, timolol eyedrops, Tylenol p.r.n., hydromorphone p.r.n., Afrin p.r.n., Phenergan p.r.n., Flomax, Ultram p.r.n. PAST MEDICAL HISTORY: As above 1. History of duodenal ulcer. 2. Type 2 diabetes mellitus. 3. History of breast cancer. 4. Hypothyroidism. PAST SURGICAL HISTORY: As above 1. Status post partial colectomy and colostomy. 2. Status post partial mastectomy. 3. Status post cardiac catheterization. FAMILY HISTORY: Noncontributory. No bleeding disorders or malignant hyperthermia. SOCIAL HISTORY: The patient is a nonsmoker. She denies alcohol or illicit drug use. REVIEW OF SYSTEMS: The patient has mild intermittent right-sided epistaxis. She denies any bloody postnasal drip. She denies any nasal pain. She is having some mild abdominal discomfort but no abdominal pain. She denies any shortness of breath or chest pain. PHYSICAL EXAMINATION: GENERAL: This is an elderly white female in no acute distress who has tissues stuck in her right nostril. These were removed for the examination. She has a mild blood clot within the right nasal cavity with mild oozing, but no active bleeding. There is no bleeding from the left hand side. There is dry mucous membranes. Oral cavity and oropharyngeal examination does not reveal any evidence of bloody postnasal drip. There are no mucosal lesions or masses. NECK: Reveals a midline trachea with no lymphadenopathy or thyroid nodularity. The patient has a normal respiratory effort. NEUROLOGIC: She is awake and alert and oriented x3. Cranial nerves II-XII are grossly intact. PROCEDURE: After verbally obtaining informed consent, the clot was removed from the right nasal cavity and the right anterior nasal septum was the area of bleeding. The patient was adamant about not having her nose packed, but I had her agree to placing fibrillar to the anterior nasal septum. This was followed by lidocaine with Afrin nasal spray. This resulted in cessation of bleeding. The patient tolerated the procedure well with no apparent complication. IMPRESSION/RECOMMENDATIONS: An 83-year-old female who is on chronic anticoagulation for the above-mentioned medical comorbidities who is currently not on anticoagulation. She had right-sided epistaxis after having an NG tube placed and subsequently removed. I have addressed her active oozing with absorbable fibrillar material. She should refrain from blowing her nose or instrumenting her nose whatsoever for 2 weeks. It is up to the primary care team and the surgery team to decide on her anticoagulation, but this does put her at risk for recurrent epistaxis. Use Afrin and direct pressure as needed, but call if there are any acute bleeding that you cannot seem to control. I will sign off on this consultation, but if you need any further assistance, please do not hesitate to contact me.
--- NOTE | 2018-11-27 11:14 | XRay Report ---
XR chest 1V portable HISTORY: Pulmonary edema. Dyspnea. Follow-up. COMPARISON: Chest 11/25/2018. FINDINGS: Continued improvement in the mild congestive change. Cardiomegaly persists. No pleural effu sions. No pneumothorax. No new focal lung consolidations to suggest pneumonia. IMPRESSION: Continued improvement in the mild congestive change. Electronically signed by: Ridge Cabrera M.D. 11/27/2018 11:12 AM
--- NOTE | 2018-11-27 13:00 | Urology Progress Note ---
Date of Service November 27, 2018 Assessment & Plan (1) Hematuria: 83 YO female with 6mm right UPJ stone, hematuria. Heparin drip has been discontinued. Patient continues to have no stone pain and is emptying her bladder without difficulty. After discussing with partners, will defer any surgical stone intervention at this time and allow patients bowels to recover. Will arrange appropriate outpatient follow up with our service. Anticoagulation per primary service. Thank you for allowing us to participate in the inpatient care of Ms. De La Garza. Please contact us if we can assist further during hospitalization. (2) Right ureteral stone: Subjective 83 YO female with 6mm right UPJ stone. Reconsulted this AM for gross hematuria. Patient also developed cocurrent nosebleed. Was on heparin drip for hx of DVT, which has since been discontinued. Patient has not developed any stone pain. Continues to void spontaneously and feels that she empties bladder completely. Review of Systems Review of Systems: Per HPI. Physical Exam Physical Exam: NAD. Resp effort normal. No JVD. Abd soft, nontender. A&Ox3, appropriate affect. Results & Data Vital Signs (Past 12 Hours) Vital Signs Temp Pulse Pulse Resp BP Pulse Ox 11/27/18 11:38 36.3 C L 73 20 97/65 L 92 11/27/18 07:20 36.6 C 79 20 123/71 95 11/27/18 07:16 78 11/27/18 04:56 101 H 11/27/18 04:00 36.7 C 80 19 109/71 92
[2018-11-27 15:31] LABS: Hematocrit (blood only) 41.4 % (37-47); Hemoglobin 13.6 g/dL (12.0-16.0)
[2018-11-27] MEDS: DIGOXIN 0.125 MG TAB PO SCH (15:40)
[2018-11-27] MEDS: OXYMETAZOLINE 0.05% 30 ML BTL PRN (16:46)
[2018-11-27] MEDS: INSULIN GLARGINE SOLOSTAR 100 UNITS/ML 3 ML PEN SQ SCH (20:13)
[2018-11-27] MEDS: ROSUVASTATIN CALCIUM 10 MG TAB PO SCH (20:14)
[2018-11-28] MEDS: LEVOTHYROXINE SODIUM 50 MCG TABLET PO SCH (06:50)
[2018-11-28] MEDS: TAMSULOSIN HCL 0.4 MG CAP PO SCH (08:01)
[2018-11-28] MEDS: TIMOLOL MALEATE 0.25% OP SOLN 5 ML BTL OP SCH (08:01)
[2018-11-28] MEDS: METOPROLOL TARTRATE 100 MG TAB PO SCH ×2 (08:01→20:34)
[2018-11-28] MEDS: INSULIN ASPART 100 UNITS/ML 3 ML PEN SC SCH ×4 (08:02→20:39)
[2018-11-28 08:06] LABS: Basophils # (auto) 0.01 K/uL (0-0.2); Basophils % (auto) 0.2 %; Eosinophils # (auto) 0.19 K/uL (0-0.5); Eosinophils % (auto) 3.7 %; Hematocrit (blood only) 40.4 % (37-47); Hemoglobin 13.4 g/dL (12.0-16.0); Immature Granulocytes # (auto) 0.02 K/uL (0.00-0.02); Immature Granulocytes % (auto) 0.4 %; Lymphocytes # (auto) 0.85 K/uL (1.2-3.4); Lymphocytes % (auto) 16.4 %; Mean Corpuscular Hemoglobin 30.7 pg (25-34); Mean Corpuscular Hgb Conc 33.2 g/dL (32-36); Mean Corpuscular Volume 92.4 fL (80-100); Mean Platelet Volume 9.9 fL (7.4-10.4); Monocytes # (auto) 0.53 K/uL (0.11-0.59); Monocytes % (auto) 10.2 %; Neutrophils # (auto) 3.58 K/uL (1.4-6.5); Neutrophils % (auto) 69.1 %; Platelet Count 200 K/uL (130-400); RDW Coefficient of Variation 14.2 % (11.5-14.5); RDW Standard Deviation 48.3 fL (36.4-46.3); Red Blood Count 4.37 M/uL (4.2-5.4); White Blood Count 5.18 K/uL (4.8-10.8)
[2018-11-28 08:16] LABS: INR 1.2 (0.9-1.1)
--- NOTE | 2018-11-28 08:26 | Hospitalist Progress Note ---
Date of Service November 28, 2018 Assessment & Plan (1) Small bowel obstruction: Patient is an 83-year-old female with a history of coronary disease/CABG, atrial fibrillation on Coumadin, PE/DVT on Coumadin, Diabetes, hypertension, breast and rectal cancer status post urostomy, presenting with small bowel obstruction. Small bowel obstruction History of colostomy for rectal cancer (+) BMs NG tube out advance diet to low fiber monitor d/c IV fluids in light of possible pulmonary edema Epistaxis Right nostril- site of NG tube in the setting of heparin drip for history of DVT, A fib -- Afrin BID, noseclip -- heparin discontinued -- ENT-absorbable fibrillar material placed. She should refrain from blowing her nose or instrumenting her nose whatsoever for 2 weeks. It is up to the primary care team and the surgery team to decide on her anticoagulation, but this does put her at risk for recurrent epistaxis. Use Afrin and direct pressure as needed, but call if there are any acute bleeding that you cannot seem to control. Hematuria Right UPJ stone, 6mm -- Urology- will defer any surgical stone intervention at this time and allow patients bowels to recover. Will arrange appropriate outpatient follow up with our service. Hypertension improved continue PO Metoprolol Acute Pulmonary edema On room air, not in respiratory distress Chest x-ray: Positive pulmonary congestion, possible edema BNP elevated Echocardiogram: EF 55-60%, mild LVH Lasix 20 mg IV ordered, improved, repeat CXR improved gentle IV fluids given while patient was NPO-> now discontinued as PO diet resumed repeat CXR today as patient having rales again Monitor input and output Coronary disease/CABG Denies chest pain Atrial fibrillation on chronic Coumadin continue usual PO Metoprolol and Digoxin coumadin held in light of SBO, and placed on heparin drip in case emergent surgery was needed INR 1.3 heparin drip now discontinued in light of hematuria and epistaxis resume anticoagulation once ok with Urology, Otorhinolaryngology PE/DVT, on chronic Coumadin last DVT 2 years ago as per patient management of anticoagulation as noted above Diabetes type 2 Insulin sliding scale Glycemic control consult History of breast and rectal cancer DVT prophylaxis anticoagulation held for now due to epistaxis, hematuria resume with Heparin bridge soon Disposition restart iv heparin and Warfarin tomorrow, hold if rebleeds lives at home PT/OT evaluation done, Rehab recommended ROS-No Headache, No Visual Changes, No Nausea, No Vomiting, No Fever, No Chills, No Neck Pain or Stiffness, No Chest Pain, No Palpitations, No SOB, No RAINEY, No Cough, No Sputum, No Wheezing, No Abdominal Pain, No Diarrhea, No Hematemesis, No Hemoptysis, No Unexpected Weight Loss, No Flank pain, No Melena, No Hematochezia, No Frequency, No Urgency, No Burning, No Hematuria, No Rashes, No Diaphoresis. Appetite is Normal Physical Exam Gen-AAO x 3, NAD, Afebrile Head-NCAT, EOMI, PERRLA, Anicteric Sclera, No Posterior Pharyngeal Erythema Neck-Supple, No JVD, No Thyromegaly, No Masses, No LAD, No Bruits Lungs-Clear to Auscultation Bilaterally, No Rales, No Rhonchi, No Wheezing, No Crepitus Chest-No S4, +S1, +S2, No S3, No Murmurs, No Rubs, No Gallops, No Ectopy Abdomen-Soft, Bowel Sounds Present, Non Tender, Non Distended, No Hepatomegaly, No Splenomegaly, No Palpable Masses, No Rebound, No Rigidity, No Guarding Musculoskeletal-Full Range of Motion Bilaterally, No CVAT Extremities-No Cyanosis, No Clubbing, No Edema Nuero-Cranial Nerves II-XII grossly intact, Motor WNL, DTRs WNL, Strength WNL, Non Focal Psych-Normal Mood Results & Data Vital Signs (Past 12 Hours) Vital Signs Temp Pulse Pulse Resp BP BP Pulse Ox 11/28/18 07:50 36.7 C 73 17 121/74 96 11/28/18 07:25 68 11/28/18 05:19 37.1 C 61 20 130/62 94 11/28/18 00:00 65 11/27/18 23:05 36.9 C 54 L 16 130/65 94 Current Diagnoses Hypertensive urgency (11/24/18) Partial intestinal obstruction, unspecified as to cause (11/24/18) Unspecified intestinal obstruction, unspecified as to partial versus complete obstruction (11/24/18) Calculus of kidney (11/24/18) Calculus of ureter (11/24/18) Hematuria, unspecified (11/24/18) Personal history of other malignant neoplasm of rectum, rectosigmoid junction, and anus (11/24/18) Allergies iodine Allergy (Intermediate, Verified 11/23/18 22:24) ITCHING lisinopril Allergy (Unknown, Verified 11/23/18 22:24) Sulfa (Sulfonamide Antibiotics) Allergy (Unknown, Verified 11/23/18 22:24) ITCHING Height/Weight/Isolation Height 5 ft 2 in Weight 88 kg Chemistry 11/27/18 07:04 Sodium 142 Potassium 3.7 Chloride 107 Carbon Dioxide 28 Anion Gap 7.0 BUN 20 H Creatinine 1.16 Glucose 168 H Urinalysis 11/26/18 20:55 Urine Color Red Urine Appearance Turbid A Urine pH 7.0 Ur Specific Hudson 1.020 Urine Protein 2+ H Urine Glucose (UA) Trace H Urine Ketones Negative Urine Blood 3+ H Urine Nitrite Negative Urine Bilirubin Negative Microbiology 11/26/18 20:55 Urine,Clean Catch Urine Culture - Final More than three types of organisms present, all high counts mixed probable skin zaki - No further identifications or sensitivities to follow. 11/24/18 03:55 Urine,Clean Catch Urine Culture - Final Three types or organisms present, all moderate counts probable skin zaki. No further identifications or sensitivities to follow.
[2018-11-28 08:34] LABS: BUN Creatinine Ratio 16.2 (10-20); Calcium 8.5 mg/dl (8.5-10.1); Creatinine Clr Calc Pharmacy 31.9 ml/min; Est GFR (African American) 42.1; Est GFR (Non-African American) 36.4
--- NOTE | 2018-11-28 10:06 | Surgery Progress Note ---
Date of Service November 28, 2018 Assessment & Plan (1) Small bowel obstruction: Patient feels well from abdominal standpoint. Her ostomy has been functioning and she denies nausea/vomiting/or abdominal pain. She is currently tolerating a low fiber diet without issues. We will sign off for now, please call surgery if you need any assistance/questions/concerns. Patient has been seen and examined with Dr. Figueroa. Subjective Patient feeling well today. Tolerating a low fiber diet without issues. Ostomy working. Physical Exam Physical Exam: awake/alert Constitutional: well developed and well nourished; no acute distress Gastrointestinal (Abdomen): + ostomy with stool Results & Data Vital Signs (Past 12 Hours) Vital Signs Temp Pulse Pulse Resp BP BP Pulse Ox 11/28/18 07:50 36.7 C 73 17 121/74 96 11/28/18 07:25 68 11/28/18 05:19 37.1 C 61 20 130/62 94 11/28/18 00:00 65 11/27/18 23:05 36.9 C 54 L 16 130/65 94 PG Care Time/CCT Total # of Minutes Spent Total Time Spent with Patient: Total time spent is greater than 50% in coordination of care (as documented) at patient's floor/unit and/or counseling patient:
[2018-11-28] MEDS: DIGOXIN 0.125 MG TAB PO SCH (17:24)
[2018-11-28] MEDS: ROSUVASTATIN CALCIUM 10 MG TAB PO SCH (20:34)
[2018-11-28] MEDS: INSULIN GLARGINE SOLOSTAR 100 UNITS/ML 3 ML PEN SQ SCH (20:38)
[2018-11-29] MEDS: LEVOTHYROXINE SODIUM 50 MCG TABLET PO SCH (05:30)
--- NOTE | 2018-11-29 07:26 | Hospitalist Progress Note ---
Date of Service November 29, 2018 Assessment & Plan (1) Small bowel obstruction: Patient is an 83-year-old female with a history of coronary disease/CABG, atrial fibrillation on Coumadin, PE/DVT on Coumadin, Diabetes, hypertension, breast and rectal cancer status post urostomy, presenting with small bowel obstruction. Small bowel obstruction History of colostomy for rectal cancer (+) BMs NG tube out advance diet to low fiber monitor d/c IV fluids in light of possible pulmonary edema Epistaxis Right nostril- site of NG tube in the setting of heparin drip for history of DVT, A fib -- Afrin BID, noseclip -- Restart heparin and Wrafarin -- ENT-absorbable fibrillar material placed. She should refrain from blowing her nose or instrumenting her nose whatsoever for 2 weeks. It is up to the primary care team and the surgery team to decide on her anticoagulation, but this does put her at risk for recurrent epistaxis. Use Afrin and direct pressure as needed, but call if there are any acute bleeding that you cannot seem to control. Hematuria Right UPJ stone, 6mm -- Urology- will defer any surgical stone intervention at this time and allow patients bowels to recover. Will arrange appropriate outpatient follow up with our service. Hypertension improved continue PO Metoprolol Acute Pulmonary edema On room air, not in respiratory distress Chest x-ray: Positive pulmonary congestion BNP elevated Echocardiogram: EF 55-60%, mild LVH Lasix 20 mg IV Monitor input and output Coronary disease/CABG Denies chest pain Atrial fibrillation on chronic Coumadin continue usual PO Metoprolol and Digoxin Resume coumadin resume anticoagulation PE/DVT, on chronic Coumadin last DVT 2 years ago as per patient management of anticoagulation as noted above Diabetes type 2 Insulin sliding scale Glycemic control consult History of breast and rectal cancer DVT prophylaxis anticoagulation held for now due to epistaxis, hematuria resume with Heparin bridge soon Disposition restart iv heparin and Warfarin today, hold if rebleeds lives at home PT/OT evaluation done, Rehab recommended ROS-No Headache, No Visual Changes, No Nausea, No Vomiting, No Fever, No Chills, No Neck Pain or Stiffness, No Chest Pain, No Palpitations, No SOB, No RAINEY, No Cough, No Sputum, No Wheezing, No Abdominal Pain, No Diarrhea, No Hematemesis, No Hemoptysis, No Unexpected Weight Loss, No Flank pain, No Melena, No Hematochezia, No Frequency, No Urgency, No Burning, No Hematuria, No Rashes, No Diaphoresis. Appetite is Normal Physical Exam Gen-AAO x 3, NAD, Afebrile Head-NCAT, EOMI, PERRLA, Anicteric Sclera, No Posterior Pharyngeal Erythema Neck-Supple, No JVD, No Thyromegaly, No Masses, No LAD, No Bruits Lungs-Clear to Auscultation Bilaterally, No Rales, No Rhonchi, No Wheezing, No Crepitus Chest-No S4, +S1, +S2, No S3, No Murmurs, No Rubs, No Gallops, No Ectopy Abdomen-Soft, Bowel Sounds Present, Non Tender, Non Distended, No Hepatomegaly, No Splenomegaly, No Palpable Masses, No Rebound, No Rigidity, No Guarding Musculoskeletal-Full Range of Motion Bilaterally, No CVAT Extremities-No Cyanosis, No Clubbing, No Edema Nuero-Cranial Nerves II-XII grossly intact, Motor WNL, DTRs WNL, Strength WNL, Non Focal Psych-Normal Mood Results & Data Vital Signs (Past 12 Hours) Vital Signs Temp Pulse Pulse Resp BP BP Pulse Ox 11/29/18 04:24 36.8 C 70 18 137/80 95 11/28/18 23:59 78 11/28/18 23:10 36.8 C 58 L 18 123/71 93 Current Diagnoses Hypertensive urgency (11/24/18) Partial intestinal obstruction, unspecified as to cause (11/24/18) Unspecified intestinal obstruction, unspecified as to partial versus complete obstruction (11/24/18) Calculus of kidney (11/24/18) Calculus of ureter (11/24/18) Hematuria, unspecified (11/24/18) Personal history of other malignant neoplasm of rectum, rectosigmoid junction, and anus (11/24/18) Allergies iodine Allergy (Intermediate, Verified 11/23/18 22:24) ITCHING lisinopril Allergy (Unknown, Verified 11/23/18 22:24) Sulfa (Sulfonamide Antibiotics) Allergy (Unknown, Verified 11/23/18 22:24) ITCHING Height/Weight/Isolation Height 5 ft 2 in Weight 84.5 kg Chemistry 11/27/18 11/28/18 07:04 07:43 Sodium 142 143 Potassium 3.7 4.0 Chloride 107 108 H Carbon Dioxide 28 28 Anion Gap 7.0 7.0 BUN 20 H 22 H Creatinine 1.16 1.33 H Glucose 168 H 183 H Microbiology 11/26/18 20:55 Urine,Clean Catch Urine Culture - Final More than three types of organisms present, all high counts mixed probable skin zaki - No further identifications or sensitivities to follow.
[2018-11-29 07:44] LABS: Basophils # (auto) 0.02 K/uL (0-0.2); Basophils % (auto) 0.4 %; Eosinophils % (auto) 4.1 %; Hematocrit (blood only) 39.6 % (37-47); Hemoglobin 13.1 g/dL (12.0-16.0); Immature Granulocytes # (auto) 0.02 K/uL (0.00-0.02); Immature Granulocytes % (auto) 0.4 %; Lymphocytes # (auto) 1.01 K/uL (1.2-3.4); Lymphocytes % (auto) 20.8 %; Mean Corpuscular Hemoglobin 30.8 pg (25-34); Mean Corpuscular Hgb Conc 33.1 g/dL (32-36); Mean Corpuscular Volume 93.2 fL (80-100); Monocytes # (auto) 0.41 K/uL (0.11-0.59); Monocytes % (auto) 8.4 %; Neutrophils % (auto) 65.9 %; Platelet Count 194 K/uL (130-400); RDW Coefficient of Variation 14.5 % (11.5-14.5); Red Blood Count 4.25 M/uL (4.2-5.4); White Blood Count 4.86 K/uL (4.8-10.8)
[2018-11-29] MEDS ORDERED: HEPARIN SODIUM/DEXTROSE 25,000 UNITS/500 ML BAG IV SCH (07:45)
[2018-11-29] MEDS ORDERED: Heparin IV Standard *NO* Bolus IV SCH (07:45)
[2018-11-29 07:50] LABS: INR 1.1 (0.9-1.1); Prothrombin Time 11.6 Seconds (9.0-12.0)
[2018-11-29 08:17] LABS: BUN Creatinine Ratio 18.6 (10-20); Calcium 8.7 mg/dl (8.5-10.1); Creatinine Clr Calc Pharmacy 29.6 ml/min; Est GFR (African American) 39.6; Est GFR (Non-African American) 34.2; Potassium 4.1 mmol/L (3.5-5.1)
[2018-11-29] MEDS: INSULIN ASPART 100 UNITS/ML 3 ML PEN SC SCH ×4 (09:00→23:37)
[2018-11-29] MEDS: METOPROLOL TARTRATE 100 MG TAB PO SCH (09:01)
[2018-11-29] MEDS: TIMOLOL MALEATE 0.25% OP SOLN 5 ML BTL OP SCH (09:01)
[2018-11-29] MEDS: TAMSULOSIN HCL 0.4 MG CAP PO SCH (09:01)
[2018-11-29] MEDS: SODIUM CHLORIDE 0.45 % 1,000 ML IV SCH (09:50)
[2018-11-29] MEDS ORDERED: DOCUSATE SODIUM 100 MG CAP ONE ×2 (13:27→13:56)
[2018-11-29] MEDS ORDERED: NURSING LOW INTENSITY WARFARIN NOMOGRAM SCH (14:00)
[2018-11-29] MEDS ORDERED: POLYETHYLENE (MIRALAX) 17 GM PACK PO PRN (15:40)
--- NOTE | 2018-11-29 15:42 | Cardiology Consultation ---
Date of Consultation November 29, 2018 Assessment & Plan (1) Partial bowel obstruction: (2) History of rectal cancer: (3) History of breast cancer: (4) Atrial fibrillation: The patient is having abdominal discomfort and is nauseated. I made her n.p.o. except for meds and started IV fluid. In regard to her atrial fibrillation with a 2.9-second pause, with patients in chronic atrial fibrillation we do not become concerned until they have pauses greater than 3 seconds. Her metoprolol dose was decreased from 100 mg twice daily to 75 mg twice daily. The dose reduction is okay however, ultimately she may have to be started on IV medications. We will follow along with you during her hospital stay. History of Present Illness Attending Physician: Jose Keyes, History of Present Illness This is an 83-year-old female who usually follows with Dr. Burns with a history of atrial fibrillation, previous coronary artery bypass surgery, rectal cancer with colostomy who was admitted with a bowel obstruction several days ago. The patient had been doing well until this morning after eating she developed abdominal discomfort and during my interview she is nauseated. We were asked to see her because she had one 2.9-second pause on the telemetry with her chronic atrial fibrillation being her underlying rhythm. She has no cardiac complaints. 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) Chronic atrial fibrillation (HCC) Hypertensive kidney disease with chronic kidney disease stage III (HCC) Hypothyroidism Asymptomatic PVCs ACEI/ARB contraindicated Iron deficiency anemia Colostomy status (HCC) HTN, goal below 150/90 Osteoporosis Chronic pain syndrome History of DVT in adulthood History of breast cancer in female History of duodenal ulcer History of rectal cancer History of embolectomy Allergies Allergy/AdvReac Type Severity Reaction Status Date / Time iodine Allergy Intermediate ITCHING Verified 11/23/18 22:24 lisinopril Allergy Unknown Verified 11/23/18 22:24 Sulfa (Sulfonamide Allergy Unknown ITCHING Verified 11/23/18 22:24 Antibiotics) Home Medications Home Medications Medication Instructions Recorded Confirmed Type nitroglycerin [Nitrostat] 0.4 mg SUBLINGUAL UD PRN #0 btl 08/12/13 11/23/18 H istory levothyroxine 50 mcg PO QAM #0 tab 08/12/15 11/23/18 History cholecalciferol (vitamin D3) 2,000 unit PO QAM #0 cap 03/14/16 11/23/18 History [Vitamin D3] rosuvastatin 10 mg PO HS #0 03/14/16 11/23/18 History calcitriol 0.5 mcg PO QAM 11/23/18 11/23/18 History denosumab [Prolia] 60 mg SUBCUT Q6M 11/23/18 11/23/18 History digoxin 125 mcg PO PM 11/23/18 11/23/18 History insulin degludec [Tresiba U-100 27 unit SUBCUT HS 11/23/18 11/23/18 History Insulin] metoprolol tartrate 100 mg PO BID 11/23/18 11/23/18 History timolol maleate 1 drp OPHTHALMIC (EYE) QAM 11/23/18 11/23/18 History warfarin [Coumadin] 2.5 mg PO 3XWK 11/23/18 11/23/18 History warfarin [Coumadin] 5 mg PO 4XWK 11/23/18 11/23/18 History insulin aspart U- 100 100 unit/mL See Rx Instructions SUBCUT 11/26/18 Rx subcutaneous solution .COMPLEX #20 ml Patient History Medical History History of rectal cancer (Chronic) History of upper gastrointestinal bleeding (Chronic) "duodenal ulcer 2013" 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) "Rectal bleeding Status post colonoscopy and biopsy 01/14/2015 Adenocarcinoma the rectum moderately differentiated Status post ultrasound staging [id number] Plan concomitant radiation and chemotherapy Chemotherapy comprised of Xeloda Radiation completed 05/27/2015 received 5040 cGy" On 03/23/15 15:33 Sol Zamora wrote "Rectal bleeding Status post colonoscopy and biopsy 01/14/2015 Adenocarcinoma the rectum moderately differentiated Status post ultrasound staging [id number] Plan concomitant radiation and chemotherapy Chemotherapy comprised of Xeloda" Diabetes mellitus, type 2 (Chronic) 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) History of breast cancer (Chronic) Hypothyroidism (Chronic) Surgical History Status post cardiac catheterization (Chronic) Status post coronary artery bypass grafting (Chronic) Status post partial colectomy (Chronic) Status post colostomy (Chronic) Status post partial mastectomy (Chronic) Family History Other No pertinent family history Social History Preferred Language: Greenlandic 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 Ability: Effective Video Rental Clerk Required: No Beliefs That Will Affect Care: None Current Living Situation: Alone Feels Safe at Home: Yes Safety Concerns: Feels Safe At This Time Smoking Status: Never smoker Hx Alcohol Use: No Hx Substance Use: No Review of Systems Review of Systems: All systems reviewed & are unremarkable except as noted in HPI & below Nothing additional. Physical Exam Physical Exam: General: no acute distress and stated age Head: normocephalic, no masses, lesions, tenderness or abnormalities Eyes: conjunctiva are pink and non-injected, sclera clear Neck: supple, no adenopathy, no bruits, normal jugular venous pulse, no hepatojugular reflux Chest: normal shape and normal respiratory effort Lungs: clear to auscultation and percussion Cardiac Exam: - irregular rate & rhythm, no murmurs gallops or rubs - normal S1, normal S2 Pulses: 2(+) throughout Abdomen: Distended and tender to palpation with decreased bowel sounds. Musculoskeletal: no gait disturbance, no joint inflammation, no deforming arthritis Extremities: no edema and no cyanosis Neuro: grossly normal exam Results & Data Vital Signs (Past 12 Hours) Vital Signs Temp Pulse Resp BP BP Pulse Ox 11/29/18 15:20 36.5 C 84 19 169/76 H 94 11/29/18 15:00 36.7 C 79 20 116/72 98 11/29/18 11:06 36.8 C 63 19 120/70 94 11/29/18 07:00 36.3 C L 71 18 135/85 96 11/29/18 04:24 36.8 C 70 18 137/80 95 Laboratory Results Laboratory Results - last 24 hr 11/28/18 11/28/18 11/29/18 16:40 20:39 07:01 WBC RBC Hgb Hct MCV MCH MCHC RDW Std Deviation RDW Coeff of Kei Plt Count MPV Immature Gran % (Auto) Neut % (Auto) Lymph % (Auto) [place] % (Auto) Eos % (Auto) Baso % (Auto) Immature Gran # (Auto) Neut # (Auto) Lymph # (Auto) [place] # (Auto) Eos # (Auto) Baso # (Auto) PT 11.6 INR 1.1 Sodium Potassium Chloride Carbon Dioxide Anion Gap BUN Creatinine Est Cr Clr Drug Dosing Est GFR ( Amer) Est GFR (Non-Af Amer) BUN/Creatinine Ratio Glucose POC Glucose 138 H 193 H Calcium 11/29/18 11/29/18 11/29/18 07:01 07:01 07:49 WBC 4.86 RBC 4.25 Hgb 13.1 Hct 39.6 MCV 93.2 MCH 30.8 MCHC 33.1 RDW Std Deviation 49.0 H RDW Coeff of Kei 14.5 Plt Count 194 MPV 10.0 Immature Gran % (Auto) 0.4 Neut % (Auto) 65.9 Lymph % (Auto) 20.8 [place] % (Auto) 8.4 Eos % (Auto) 4.1 Baso % (Auto) 0.4 Immature Gran # (Auto) 0.02 Neut # (Auto) 3.20 Lymph # (Auto) 1.01 L [place] # (Auto) 0.41 Eos # (Auto) 0.20 Baso # (Auto) 0.02 PT INR Sodium 142 Potassium 4.1 Chloride 109 H Carbon Dioxide 26 Anion Gap 7.0 BUN 26 H Creatinine 1.40 H Est Cr Clr Drug Dosing 29.6 Est GFR ( Amer) 39.6 Est GFR (Non-Af Amer) 34.2 BUN/Creatinine Ratio 18.6 Glucose 193 H POC Glucose 181 H Calcium 8.7 11/29/18 11:14 WBC RBC Hgb Hct MCV MCH MCHC RDW Std Deviation RDW Coeff of Kei Plt Count MPV Immature Gran % (Auto) Neut % (Auto) Lymph % (Auto) [place] % (Auto) Eos % (Auto) Baso % (Auto) Immature Gran # (Auto) Neut # (Auto) Lymph # (Auto) [place] # (Auto) Eos # (Auto) Baso # (Auto) PT INR Sodium Potassium Chloride Carbon Dioxide Anion Gap BUN Creatinine Est Cr Clr Drug Dosing Est GFR ( Amer) Est GFR (Non-Af Amer) BUN/Creatinine Ratio Glucose POC Glucose 213 H Calcium Medications Administered Current Inpatient Medications Acetaminophen (Tylenol) 650 mg PO Q4H PRN PRN Reason: Pain or Fever Stop: 12/24/18 03:42 Dextrose (Dextrose 50%) 25 - 50 ml IV UD PRN; Protocol PRN Reason: Hypoglycemia Protocol Stop: 12/24/18 03:42 Digoxin (Lanoxin) 0.125 mg PO DAILY@1600 [facility] Stop: 12/26/18 15:59 Last Admin: 11/28/18 17:24 Dose: 0.125 mg Documented by: Docusate Sodium (Colace) 100 mg PO BID [facility] Stop: 12/29/18 20:59 Glucagon (Glucagen) 1 mg SQ UD PRN; Protocol PRN Reason: Hypoglycemia Protocol Stop: 12/24/18 03:42 Glucose (Glucose 40%) 15 - 30 gm PO UD PRN; Protocol PRN Reason: Hypoglycemia Protocol Stop: 12/24/18 03:42 Glucose (Dex4 Glucose) 4 - 8 tabs PO UD PRN; Protocol PRN Reason: Hypoglycemia Protocol Stop: 12/24/18 03:42 Hydromorphone HCl (Dilaudid) 0.25 mg IV Q6H PRN PRN Reason: Pain Stop: 12/08/18 03:42 Last Admin: 11/24/18 07:37 Dose: 0.25 mg Documented by: Promethazine HCl 12.5 mg/ (Sodium Chloride) 50.5 mls @ 202 mls/hr IV Q6H PRN PRN Reason: Nausea And Vomiting Stop: 12/24/18 03:42 Last Infusion: 11/25/18 07:05 Dose: Infused Documented by: Heparin Sodium/Dextrose (Heparin Sodium/Dextrose) 25,000 units in 500 mls @ 23 mls/hr IV .[id number] [facility]; Protocol Stop: 12/29/18 07:44 Last Admin: 11/29/18 09:34 Dose: 1,150 units/hr, 23 mls/hr Documented by: Sodium Chloride (Nss 1000ml) 1,000 mls @ 80 mls/hr IV .[id number] [facility] Stop: 12/29/18 15:44 Insulin Aspart (Novolog Flexpen) 0 units SC ACHS [facility] Stop: 12/26/18 11:29 Last Admin: 11/29/18 13:18 Dose: 6 units Documented by: Insulin Glargine (Lantus Solostar Pen) 15 units SQ HS [facility] Stop: 12/24/18 20:59 Last Admin: 11/28/18 20:38 Dose: 15 units Documented by: Levothyroxine Sodium (Synthroid) 50 mcg PO DAILYBB [facility] Stop: 12/24/18 06:29 Last Admin: 11/29/18 05:30 Dose: 50 mcg Documented by: Menthol (Nice) 1 daysi BUCCAL PRN PRN PRN Reason: Sore Throat Stop: 12/25/18 18:23 Metoprolol Tartrate (Lopressor) 75 mg PO BID [facility] Stop: 12/29/18 20:59 Miscellaneous (Carbohydrates For Hypoglycemia) 15 - 30 gm PO UD PRN PRN Reason: Hypoglycemia Treatment Stop: 12/24/18 03:42 Miscellaneous Information (Low Intensity Warfarin Nomogra) 1 ea N/A DAILY@1400 [facility]; Protocol Stop: 12/29/18 13:59 Nitroglycerin (Nitrostat) 0.4 mg SL UD PRN PRN Reason: Chest Pain Stop: 12/24/18 03:42 Oxymetazoline HCl (Afrin 0.05%) 1 sprays NA BID PRN PRN Reason: epistaxis Stop: 12/26/18 11:41 Last Admin: 11/27/18 16:46 Dose: 1 sprays Documented by: Polyethylene Glycol (Miralax Powder Packet) 17 gm PO DAILY PRN PRN Reason: Constipation Stop: 12/29/18 15:39 Rosuvastatin Calcium (Crestor) 10 mg PO HS [facility] Stop: 12/24/18 20:59 Last Admin: 11/28/18 20:34 Dose: 10 mg Documented by: Tamsulosin HCl (Flomax) 0.4 mg PO DAILY [facility] Stop: 12/25/18 08:59 Last Admin: 11/29/18 09:01 Dose: 0.4 mg Documented by: Timolol Maleate (Timoptic 0.25% Oph) 1 drops OP QAM [facility] Stop: 12/24/18 08:59 Last Admin: 11/29/18 09:01 Dose: 1 drops Documented by: Tramadol HCl (Ultram) 25 mg PO Q4H PRN PRN Reason: Pain Stop: 12/24/18 03:42 (1) Partial bowel obstruction Intestinal obstruction type: unspecified Qualified Code(s): K56.600 - Partial intestinal obstruction, unspecified as to cause
[2018-11-29] MEDS ORDERED: WARFARIN SOD 5 MG TAB PO SCH (16:00)
[2018-11-29 16:15] LABS: Partial Thromboplastin Ratio 1.5; Partial Thromboplastin Time 40.9 Seconds (21.0-31.0)
[2018-11-29] MEDS ORDERED: Nursing to Pharmacy 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 ONE ×2 (16:18→21:34)
[2018-11-29] MEDS ORDERED: WARFARIN SOD 3 MG TAB PO ONE (16:30)
--- NOTE | 2018-11-29 17:38 | Urology Progress Note ---
Date of Service November 29, 2018 Assessment & Plan (1) Right ureteral stone: Patient seems to be suffering no sequela from her stone including worsening renal function or intractable colic. Her comorbidities continue to be her primary concern at this time. We therefore avoid adding to her health burden with consideration of surgery for her right stone unless this becomes more problematic for her during this admission. Consider KUB and/or renal ultrasound to evaluate for stone and hydronephrosis progress. Thank you for allowing us to participate in this patient's acute care. Please contact our service with any questions or concerns. Subjective 83-year-old female with multiple difficulties, most acutely issues with small bowel obstruction and history of ostomy also found to have a right proximal ureteral stone with hydronephrosis and hematuria. Patient's creatinine remains relatively stable at 1.4. Her recurrent nausea causing her to be returned to an n.p.o. status today as noted. She denies back pain and notes questionable hematuria, apparently improved from previously. She is currently being transitioned to oral Coumadin. Review of Systems Constitutional: no fever and no chills Eyes: no diplopia Ear, Nose, Mouth, Throat: no ear trauma Respiratory: no hemoptysis Cardiovascular: no chest pain Gastrointestinal: + abdominal pain, + bloating and + nausea Integumentary: no acne and no boil Neurologic: no paralysis Psychiatric: no hopelessness Allergy / Immunological: no tongue swelling Physical Exam Constitutional: no acute distress Eyes: eyes not dysmorphic ENMT: Ears: no external ear abnormality Neck: trachea midline; no anterior neck swelling Respiratory: no respiratory distress and does not use accessory muscles Cardiovascular: Vessels: radial pulses present Musculoskeletal: Head/Neck/Chest: normocephalic and neck supple Skin: normal turgor Neurologic: awake; not obtunded Psychiatric: Orientation: oriented x 3 Lymphatic: no lymphadenopathy Results & Data Vital Signs (Past 12 Hours) Vital Signs Temp Pulse Resp BP BP Pulse Ox 11/29/18 15:20 36.5 C 84 19 169/76 H 94 11/29/18 15:00 36.7 C 79 20 116/72 98 11/29/18 11:06 36.8 C 63 19 120/70 94 11/29/18 07:00 36.3 C L 71 18 135/85 96 Laboratory Results Laboratory Results - last 48 hr 11/27/18 11/28/18 11/28/18 20:11 07:30 07:43 WBC RBC Hgb Hct MCV MCH MCHC RDW Std Deviation RDW Coeff of Kei Plt Count MPV Immature Gran % (Auto) Neut % (Auto) Lymph % (Auto) [place] % (Auto) Eos % (Auto) Baso % (Auto) Immature Gran # (Auto) Neut # (Auto) Lymph # (Auto) [place] # (Auto) Eos # (Auto) Baso # (Auto) PT 12.0 INR 1.2 H APTT PTT Ratio Sodium Potassium Chloride Carbon Dioxide Anion Gap BUN Creatinine Est Cr Clr Drug Dosing Est GFR ( Amer) Est GFR (Non-Af Amer) BUN/Creatinine Ratio Glucose POC Glucose 204 H 179 H Calcium Stool Occult Bld Scrn 11/28/18 11/28/18 11/28/18 07:43 07:43 11:41 WBC 5.18 RBC 4.37 Hgb 13.4 Hct 40.4 MCV 92.4 MCH 30.7 MCHC 33.2 RDW Std Deviation 48.3 H RDW Coeff of Kei 14.2 Plt Count 200 MPV 9.9 Immature Gran % (Auto) 0.4 Neut % (Auto) 69.1 Lymph % (Auto) 16.4 [place] % (Auto) 10.2 Eos % (Auto) 3.7 Baso % (Auto) 0.2 Immature Gran # (Auto) 0.02 Neut # (Auto) 3.58 Lymph # (Auto) 0.85 L [place] # (Auto) 0.53 Eos # (Auto) 0.19 Baso # (Auto) 0.01 PT INR APTT PTT Ratio Sodium 143 Potassium 4.0 Chloride 108 H Carbon Dioxide 28 Anion Gap 7.0 BUN 22 H Creatinine 1.33 H Est Cr Clr Drug Dosing 31.9 Est GFR ( Amer) 42.1 Est GFR (Non-Af Amer) 36.4 BUN/Creatinine Ratio 16.2 Glucose 183 H POC Glucose 236 H Calcium 8.5 Stool Occult Bld Scrn 11/28/18 11/28/18 11/29/18 16:40 20:39 07:01 WBC RBC Hgb Hct MCV MCH MCHC RDW Std Deviation RDW Coeff of Kei Plt Count MPV Immature Gran % (Auto) Neut % (Auto) Lymph % (Auto) [place] % (Auto) Eos % (Auto) Baso % (Auto) Immature Gran # (Auto) Neut # (Auto) Lymph # (Auto) [place] # (Auto) Eos # (Auto) Baso # (Auto) PT 11.6 INR 1.1 APTT PTT Ratio Sodium Potassium Chloride Carbon Dioxide Anion Gap BUN Creatinine Est Cr Clr Drug Dosing Est GFR ( Amer) Est GFR (Non-Af Amer) BUN/Creatinine Ratio Glucose POC Glucose 138 H 193 H Calcium Stool Occult Bld Scrn 11/29/18 11/29/18 11/29/18 07:01 07:01 07:49 WBC 4.86 RBC 4.25 Hgb 13.1 Hct 39.6 MCV 93.2 MCH 30.8 MCHC 33.1 RDW Std Deviation 49.0 H RDW Coeff of Kei 14.5 Plt Count 194 MPV 10.0 Immature Gran % (Auto) 0.4 Neut % (Auto) 65.9 Lymph % (Auto) 20.8 [place] % (Auto) 8.4 Eos % (Auto) 4.1 Baso % (Auto) 0.4 Immature Gran # (Auto) 0.02 Neut # (Auto) 3.20 Lymph # (Auto) 1.01 L [place] # (Auto) 0.41 Eos # (Auto) 0.20 Baso # (Auto) 0.02 PT INR APTT PTT Ratio Sodium 142 Potassium 4.1 Chloride 109 H Carbon Dioxide 26 Anion Gap 7.0 BUN 26 H Creatinine 1.40 H Est Cr Clr Drug Dosing 29.6 Est GFR ( Amer) 39.6 Est GFR (Non-Af Amer) 34.2 BUN/Creatinine Ratio 18.6 Glucose 193 H POC Glucose 181 H Calcium 8.7 Stool Occult Bld Scrn 11/29/18 11/29/18 11/29/18 11:14 15:50 16:00 WBC RBC Hgb Hct MCV MCH MCHC RDW Std Deviation RDW Coeff of Kei Plt Count MPV Immature Gran % (Auto) Neut % (Auto) Lymph % (Auto) [place] % (Auto) Eos % (Auto) Baso % (Auto) Immature Gran # (Auto) Neut # (Auto) Lymph # (Auto) [place] # (Auto) Eos # (Auto) Baso # (Auto) PT INR APTT 40.9 H PTT Ratio 1.5 Sodium Potassium Chloride Carbon Dioxide Anion Gap BUN Creatinine Est Cr Clr Drug Dosing Est GFR ( Amer) Est GFR (Non-Af Amer) BUN/Creatinine Ratio Glucose POC Glucose 213 H Calcium Stool Occult Bld Scrn Positive A 11/29/18 16:19 WBC RBC Hgb Hct MCV MCH MCHC RDW Std Deviation RDW Coeff of Kei Plt Count MPV Immature Gran % (Auto) Neut % (Auto) Lymph % (Auto) [place] % (Auto) Eos % (Auto) Baso % (Auto) Immature Gran # (Auto) Neut # (Auto) Lymph # (Auto) [place] # (Auto) Eos # (Auto) Baso # (Auto) PT INR APTT PTT Ratio Sodium Potassium Chloride Carbon Dioxide Anion Gap BUN Creatinine Est Cr Clr Drug Dosing Est GFR ( Amer) Est GFR (Non-Af Amer) BUN/Creatinine Ratio Glucose POC Glucose 162 H Calcium Stool Occult Bld Scrn PG Care Time/CCT Total # of Minutes Spent Total Time Spent with Patient: Total time spent is greater than 50% in coordination of care (as documented) at patient's floor/unit and/or counseling patient:
--- NOTE | 2018-11-29 17:47 | XRay Report ---
XR KUB/Abdomen 1 view CLINICAL HISTORY: 83 years-old Female presenting with abd pain recent SBO. TECHNIQUE: Single supine view of the abdomen was obtained. COMPARISON: 11/25/2018. FINDINGS: Residual oral contrast noted within the nondistended large bowel. Bowel gas pattern is grossly nonobs tructive. Mild small bowel wall thickening a be present in the left midabdomen. No gross pneumoperito neum. Mild gaseous distention of the stomach. Cholecystectomy clips noted. The liver shadow may be en larged. Evaluation for nephrolithiasis limited given the presence of the oral contrast. Median sternotomy wires with breakage of an inferior wire. Mitral valve replacement noted. Degenerati ve changes and scoliosis of the spine. Osteopenia may be present. IMPRESSION: 1. No gross evidence of bowel obstruction. 2. Proximal small bowel wall thickening, which could suggest enteritis or other nonspecific edema. T he presence of residual barium contrast would likely prohibit an adequate CT examination at this time due to resulting extensive streak artifact. Electronically signed by: Guzman Hernandez M.D. 11/29/2018 5:45 PM
[2018-11-29] MEDS: SODIUM CHLORIDE 0.9% 1000ML 1,000 ML IV SCH (17:59)
[2018-11-29] MEDS: DIGOXIN 0.125 MG TAB PO SCH (18:02)
[2018-11-29] MEDS: DOCUSATE SODIUM 100 MG CAP PO SCH (20:36)
[2018-11-29] MEDS: ROSUVASTATIN CALCIUM 10 MG TAB PO SCH (20:36)
[2018-11-29] MEDS ORDERED: METOPROLOL TARTRATE 100 MG TAB PO SCH (21:00)
[2018-11-29] MEDS ORDERED: INSULIN GLARGINE SOLOSTAR 100 UNITS/ML 3 ML PEN SQ SCH (22:00)
[2018-11-29] MEDS: METOPROLOL TARTRATE 25 MG TAB PO SCH (22:04)
[2018-11-30] MEDS: SODIUM CHLORIDE 0.9% 1000ML 1,000 ML IV SCH (03:34)
[2018-11-30] MEDS: LEVOTHYROXINE SODIUM 50 MCG TABLET PO SCH (06:05)
[2018-11-30] MEDS ORDERED: Heparin IV Standard *NO* Bolus IV SCH (06:36)
--- NOTE | 2018-11-30 06:36 | Hospitalist Progress Note ---
Date of Service November 30, 2018 Assessment & Plan (1) Small bowel obstruction: Patient is an 83-year-old female with a history of coronary disease/CABG, atrial fibrillation on Coumadin, PE/DVT on Coumadin, Diabetes, hypertension, breast and rectal cancer status post urostomy, presenting with small bowel obstruction. Small bowel obstruction History of colostomy for rectal cancer (+) BMs +SB thickening on KUB Epistaxis Right nostril- site of NG tube in the setting of heparin drip for history of DVT, A fib -- Afrin BID, noseclip -- Restart heparin and Warfarin -- ENT-absorbable fibrillar material placed. She should refrain from blowing her nose or instrumenting her nose whatsoever for 2 weeks. It is up to the primary care team and the surgery team to decide on her anticoagulation, but this does put her at risk for recurrent epistaxis. Use Afrin and direct pressure as needed, but call if there are any acute bleeding that you cannot seem to control. Hematuria Right UPJ stone, 6mm -- Urology- will defer any surgical stone intervention at this time and allow patients bowels to recover. Will arrange appropriate outpatient follow up with our service. Hypertension improved continue PO Metoprolol Acute Pulmonary edema On room air, not in respiratory distress Chest x-ray: Positive pulmonary congestion BNP elevated Echocardiogram: EF 55-60%, mild LVH Lasix 20 mg IV Monitor input and output Coronary disease/CABG Denies chest pain Atrial fibrillation on chronic Coumadin continue usual PO Metoprolol and Digoxin Resume Coumadin resume anticoagulation PE/DVT, on chronic Coumadin last DVT 2 years ago as per patient management of anticoagulation as noted above Diabetes type 2 Insulin sliding scale Glycemic control consult History of breast and rectal cancer DVT prophylaxis anticoagulation held for now due to epistaxis, hematuria resume with Heparin bridge soon Disposition restart IV heparin and Warfarin again today, hold if rebleeds lives at home PT/OT evaluation done, Rehab recommended ROS-No Headache, No Visual Changes, No Nausea, No Vomiting, No Fever, No Chills, No Neck Pain or Stiffness, No Chest Pain, No Palpitations, No SOB, No RAINEY, No Cough, No Sputum, No Wheezing, No Abdominal Pain, No Diarrhea, No Hematemesis, No Hemoptysis, No Unexpected Weight Loss, No Flank pain, No Melena, No Hematochezia, No Frequency, No Urgency, No Burning, No Hematuria, No Rashes, No Diaphoresis. Appetite is Normal, denies bleeding Physical Exam Gen-AAO x 3, NAD, Afebrile Head-NCAT, EOMI, PERRLA, Anicteric Sclera, No Posterior Pharyngeal Erythema Neck-Supple, No JVD, No Thyromegaly, No Masses, No LAD, No Bruits Lungs-Clear to Auscultation Bilaterally, No Rales, No Rhonchi, No Wheezing, No Crepitus Chest-No S4, +S1, +S2, No S3, No Murmurs, No Rubs, No Gallops, No Ectopy Abdomen-Soft, Bowel Sounds Present, Non Tender, Non Distended, No Hepatomegaly, No Splenomegaly, No Palpable Masses, No Rebound, No Rigidity, No Guarding Musculoskeletal-Full Range of Motion Bilaterally, No CVAT Extremities-No Cyanosis, No Clubbing, No Edema Nuero-Cranial Nerves II-XII grossly intact, Motor WNL, DTRs WNL, Strength WNL, Non Focal Psych-Normal Mood Results & Data Vital Signs (Past 12 Hours) Vital Signs Temp Pulse Pulse Resp BP Pulse Ox 11/30/18 03:23 36.4 C L 64 16 120/74 96 11/30/18 01:12 69 11/29/18 19:17 36.7 C 76 20 142/70 H 94 Current Diagnoses Hypertensive urgency (11/24/18) Unspecified atrial fibrillation (11/24/18) Partial intestinal obstruction, unspecified as to cause (11/24/18) Unspecified intestinal obstruction, unspecified as to partial versus complete obstruction (11/24/18) Calculus of kidney (11/24/18) Calculus of ureter (11/24/18) Hematuria, unspecified (11/24/18) Personal history of other malignant neoplasm of rectum, rectosigmoid junction, and anus (11/24/18) Personal history of malignant neoplasm of breast (11/24/18) Allergies iodine Allergy (Intermediate, Verified 11/23/18 22:24) ITCHING lisinopril Allergy (Unknown, Verified 11/23/18 22:24) Sulfa (Sulfonamide Antibiotics) Allergy (Unknown, Verified 11/23/18 22:24) ITCHING Height/Weight/Isolation Height 5 ft 2 in Weight 84.5 kg Chemistry 11/28/18 11/29/18 07:43 07:01 Sodium 143 142 Potassium 4.0 4.1 Chloride 108 H 109 H Carbon Dioxide 28 26 Anion Gap 7.0 7.0 BUN 22 H 26 H Creatinine 1.33 H 1.40 H Glucose 183 H 193 H Microbiology 11/26/18 20:55 Urine,Clean Catch Urine Culture - Final More than three types of organisms present, all high counts mixed probable skin zaki - No further identifications or sensitivities to follow.
[2018-11-30] MEDS: DOCUSATE SODIUM 100 MG CAP PO SCH ×2 (08:19→20:44)
[2018-11-30] MEDS: METOPROLOL TARTRATE 25 MG TAB PO SCH ×2 (08:19→20:45)
[2018-11-30] MEDS: TAMSULOSIN HCL 0.4 MG CAP PO SCH (08:19)
[2018-11-30] MEDS: TIMOLOL MALEATE 0.25% OP SOLN 5 ML BTL OP SCH (08:20)
[2018-11-30] MEDS: HEPARIN SODIUM/DEXTROSE 25,000 UNITS/500 ML BAG IV SCH (08:26)
[2018-11-30] MEDS: INSULIN ASPART 100 UNITS/ML 3 ML PEN SC SCH ×4 (09:02→20:54)
--- NOTE | 2018-11-30 10:18 | Urology Progress Note ---
Date of Service November 30, 2018 Assessment & Plan (1) Right ureteral stone: Patient remains asymptomatic and stable. No acute intervention is planned. Will arrange for outpatient follow-up in a couple of weeks with a KUB to monitor progress. Worrisome signs and symptoms associated with the patient's stone are reviewed but otherwise she should be stable for discharge home from a urologic perspective. Thank you for allowing us to participate in this patient's acute care. Please contact our service with any questions or concerns. Subjective 83-year-old female with multiple difficulties, most acutely issues with small bowel obstruction and history of ostomy also found to have a right proximal ureteral stone with hydronephrosis and hematuria. She reports she has been returned to a clear liquid diet with less abdominal discomfort and bloating. She denies gross hematuria or flank pain. She denies stone passage. Past notes are reviewed. Review of Systems Constitutional: no fever and no chills Eyes: no diplopia Ear, Nose, Mouth, Throat: no ear trauma Respiratory: no hemoptysis Cardiovascular: no chest pain Integumentary: no acne and no boil Neurologic: no paralysis Psychiatric: no hopelessness Allergy / Immunological: no tongue swelling Physical Exam Constitutional: no acute distress Eyes: eyes not dysmorphic ENMT: Ears: no external ear abnormality Neck: trachea midline; no anterior neck swelling Respiratory: no respiratory distress and does not use accessory muscles Cardiovascular: Vessels: radial pulses present Musculoskeletal: Head/Neck/Chest: normocephalic and neck supple Skin: normal turgor Neurologic: awake; not obtunded Psychiatric: Orientation: oriented x 3 Lymphatic: no lymphadenopathy Results & Data Vital Signs (Past 12 Hours) Vital Signs Temp Pulse Pulse Resp BP Pulse Ox 11/30/18 09:59 68 11/30/18 07:10 36.7 C 72 18 119/75 94 11/30/18 03:23 36.4 C L 64 16 120/74 96 11/30/18 01:12 69 Laboratory Results Laboratory Results - last 48 hr 11/28/18 11/28/18 11/28/18 11:41 16:40 20:39 WBC RBC Hgb Hct MCV MCH MCHC RDW Std Deviation RDW Coeff of Kei Plt Count MPV Immature Gran % (Auto) Neut % (Auto) Lymph % (Auto) [place] % (Auto) Eos % (Auto) Baso % (Auto) Immature Gran # (Auto) Neut # (Auto) Lymph # (Auto) [place] # (Auto) Eos # (Auto) Baso # (Auto) PT INR APTT PTT Ratio Sodium Potassium Chloride Carbon Dioxide Anion Gap BUN Creatinine Est Cr Clr Drug Dosing Est GFR ( Amer) Est GFR (Non-Af Amer) BUN/Creatinine Ratio Glucose POC Glucose 236 H 138 H 193 H Calcium Stool Occult Bld Scrn 11/29/18 11/29/18 11/29/18 07:01 07:01 07:01 WBC 4.86 RBC 4.25 Hgb 13.1 Hct 39.6 MCV 93.2 MCH 30.8 MCHC 33.1 RDW Std Deviation 49.0 H RDW Coeff of Kei 14.5 Plt Count 194 MPV 10.0 Immature Gran % (Auto) 0.4 Neut % (Auto) 65.9 Lymph % (Auto) 20.8 [place] % (Auto) 8.4 Eos % (Auto) 4.1 Baso % (Auto) 0.4 Immature Gran # (Auto) 0.02 Neut # (Auto) 3.20 Lymph # (Auto) 1.01 L [place] # (Auto) 0.41 Eos # (Auto) 0.20 Baso # (Auto) 0.02 PT 11.6 INR 1.1 APTT PTT Ratio Sodium 142 Potassium 4.1 Chloride 109 H Carbon Dioxide 26 Anion Gap 7.0 BUN 26 H Creatinine 1.40 H Est Cr Clr Drug Dosing 29.6 Est GFR ( Amer) 39.6 Est GFR (Non-Af Amer) 34.2 BUN/Creatinine Ratio 18.6 Glucose 193 H POC Glucose Calcium 8.7 Stool Occult Bld Scrn 11/29/18 11/29/18 11/29/18 07:49 11:14 15:50 WBC RBC Hgb Hct MCV MCH MCHC RDW Std Deviation RDW Coeff of Kei Plt Count MPV Immature Gran % (Auto) Neut % (Auto) Lymph % (Auto) [place] % (Auto) Eos % (Auto) Baso % (Auto) Immature Gran # (Auto) Neut # (Auto) Lymph # (Auto) [place] # (Auto) Eos # (Auto) Baso # (Auto) PT INR APTT 40.9 H PTT Ratio 1.5 Sodium Potassium Chloride Carbon Dioxide Anion Gap BUN Creatinine Est Cr Clr Drug Dosing Est GFR ( Amer) Est GFR (Non-Af Amer) BUN/Creatinine Ratio Glucose POC Glucose 181 H 213 H Calcium Stool Occult Bld Scrn 11/29/18 11/29/18 11/29/18 16:00 16:19 20:24 WBC RBC Hgb Hct MCV MCH MCHC RDW Std Deviation RDW Coeff of Kei Plt Count MPV Immature Gran % (Auto) Neut % (Auto) Lymph % (Auto) [place] % (Auto) Eos % (Auto) Baso % (Auto) Immature Gran # (Auto) Neut # (Auto) Lymph # (Auto) [place] # (Auto) Eos # (Auto) Baso # (Auto) PT INR APTT PTT Ratio Sodium Potassium Chloride Carbon Dioxide Anion Gap BUN Creatinine Est Cr Clr Drug Dosing Est GFR ( Amer) Est GFR (Non-Af Amer) BUN/Creatinine Ratio Glucose POC Glucose 162 H 189 H Calcium Stool Occult Bld Scrn Positive A 11/30/18 11/30/18 00:09 06:44 WBC RBC Hgb Hct MCV MCH MCHC RDW Std Deviation RDW Coeff of Kei Plt Count MPV Immature Gran % (Auto) Neut % (Auto) Lymph % (Auto) [place] % (Auto) Eos % (Auto) Baso % (Auto) Immature Gran # (Auto) Neut # (Auto) Lymph # (Auto) [place] # (Auto) Eos # (Auto) Baso # (Auto) PT INR APTT PTT Ratio Sodium Potassium Chloride Carbon Dioxide Anion Gap BUN Creatinine Est Cr Clr Drug Dosing Est GFR ( Amer) Est GFR (Non-Af Amer) BUN/Creatinine Ratio Glucose POC Glucose 167 H 182 H Calcium Stool Occult Bld Scrn PG Care Time/CCT Total # of Minutes Spent Total Time Spent with Patient: Total time spent is greater than 50% in coordination of care (as documented) at patient's floor/unit and/or counseling patient:
[2018-11-30 10:20] LABS: Hematocrit (blood only) 38.8 % (37-47); Hemoglobin 12.7 g/dL (12.0-16.0); Mean Corpuscular Hemoglobin 30.6 pg (25-34); Mean Corpuscular Hgb Conc 32.7 g/dL (32-36); Mean Corpuscular Volume 93.5 fL (80-100); Mean Platelet Volume 10.2 fL (7.4-10.4); Platelet Count 200 K/uL (130-400); RDW Coefficient of Variation 14.6 % (11.5-14.5); RDW Standard Deviation 49.7 fL (36.4-46.3); Red Blood Count 4.15 M/uL (4.2-5.4); White Blood Count 5.63 K/uL (4.8-10.8)
[2018-11-30 10:29] LABS: INR 1.2 (0.9-1.1); Prothrombin Time 12.2 Seconds (9.0-12.0)
[2018-11-30 10:39] LABS: BUN Creatinine Ratio 17.9 (10-20); Calcium 8.5 mg/dl (8.5-10.1); Creatinine Clr Calc Pharmacy 32.9 ml/min; Est GFR (Non-African American) 38.8; Potassium 4.1 mmol/L (3.5-5.1)
--- NOTE | 2018-11-30 13:37 | Cardiology Progress Note ---
Date of Service November 30, 2018 Assessment & Plan (1) Atrial fibrillation: Patient is a history of chronic atrial fibrillation, previous embolic event to the lower extremity requiring surgical embolectomy for acute limb ischemia several years ago. She had been observed to have a 2.9-second pause on telemetry 2 nights ago. Her metoprolol dose was reduced from 100 mg twice daily to 75 mg twice daily. Telemetry currently reveals stable findings with atrial fibrillation in the range of 60 to 70 bpm. Patient is comfortable. She states her abdominal pain is lessened. Continue heparin infusion for embolic prophylaxis. When deemed stable from an abdominal standpoint resume Coumadin will resume her Coumadin. (2) Small bowel obstruction: Dr. Parsons had been concerned about lack of oral intake yesterday, and she was placed on normal saline at 80 mL's per hour. This appears to be improved, and therefore I am going to discontinue her fluids. DVT prophylaxis: She is on unfractionated heparin infusion. Subjective Chief complaint: Follow-up nauseousness Subjective: Patient comfortable in bed, she had a liquid diet for lunch. She remains on IV fluids at 80 mL an hour. Heparin is infusing. Family is visiting at bedside. Review of Systems Review of Systems: All systems reviewed & are unremarkable except as noted in HPI & below Physical Exam Physical Exam: Temp Pulse Resp BP Pulse Ox 36.7 C 54 L 18 110/69 94 11/30/18 11:17 11/30/18 11:17 11/30/18 11:17 11/30/18 11:17 11/30/18 11:17 Constitutional: WD/WN, vitals as above Respiratory: normal respiratory effort, lungs clear to auscultation Cardiovascular: Rate/Rhythm: + irregularly irregular Heart Sounds: no murmur Vessels: no JVD Extremities: no edema Gastrointestinal (Abdomen): Percussion/Palpation: abdomen nontender Neurologic: PERRL, EOMI, accommodation nl, no face palsy, no dysarthria Results & Data Vital Signs (Past 12 Hours) Vital Signs Temp Pulse Pulse Resp BP Pulse Ox 11/30/18 11:17 36.7 C 54 L 18 110/69 94 11/30/18 09:59 68 11/30/18 07:10 36.7 C 72 18 119/75 94 11/30/18 03:23 36.4 C L 64 16 120/74 96 Laboratory Results Coagulation 11/29/18 11/30/18 Range/Units 15:50 09:59 PT 12.2 H (9.0-12.0) Seconds APTT 40.9 H (21.0-31.0) Seconds CBC 11/30/18 Range/Units 09:59 WBC 5.63 (4.8-10.8) K/uL RBC 4.15 L (4.2-5.4) M/uL Hgb 12.7 (12.0-16.0) g/dL Hct 38.8 (37-47) % Plt Count 200 (130-400) K/uL Comprehensive Metabolic Panel 11/30/18 Range/Units 09:59 Sodium 140 (136-145) mmol/L Potassium 4.1 (3.5-5.1) mmol/L Chloride 108 H (98-107) mmol/L Carbon Dioxide 25 (21-32) mmol/L BUN 23 H (7-18) mg/dl Creatinine 1.26 H (0.6-1.2) mg/dl Glucose 282 H (70-99) mg/dl Calcium 8.5 (8.5-10.1) mg/dl Intake and Output 11/29/18 11/30/18 11/30/18 22:59 06:59 14:59 Intake Total 275 / 1813.967 766.667 / 1813.967 500 / 500 Output Total 500 / 1225 425 / 1225 Balance -225 / 588.967 341.667 / 588.967 500 / 500 Intake: IV 766.667 / 1038.967 500 / 500 HEPARIN SODIUM/DEXTROSE 25,000 500 / 500 units In 500 ml @ 1,150 UNITS/ HR 23 mls/hr IV .[id number] [facility] Rx #:[id number] Nss 1000ML 1,000 ml @ 80 mls/hr 766.667 / 766.667 IV .[id number] [facility] Rx#:[id number] Oral 275 / 775 Output: Urine 375 / 675 Stool 50 / 50 Other 500 / 500 Other: Other Intake Source NPO Weight 84.5 kg
[2018-11-30] MEDS ORDERED: Nursing to Pharmacy 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 ONE (13:42)
[2018-11-30] MEDS ORDERED: NURSING LOW INTENSITY WARFARIN NOMOGRAM SCH ×2 (14:00)
[2018-11-30 15:04] LABS: Partial Thromboplastin Ratio 1.7
[2018-11-30 15:05] LABS: Partial Thromboplastin Time 46.9 Seconds (21.0-31.0)
[2018-11-30] MEDS ORDERED: WARFARIN SOD 3 MG TAB PO ONE (16:00)
[2018-11-30] MEDS: DIGOXIN 0.125 MG TAB PO SCH (16:34)
[2018-11-30] MEDS: ROSUVASTATIN CALCIUM 10 MG TAB PO SCH (20:45)
[2018-11-30] MEDS: INSULIN GLARGINE SOLOSTAR 100 UNITS/ML 3 ML PEN SQ SCH (20:53)
[2018-12-01] MEDS: DOCUSATE SODIUM 100 MG CAP PO SCH ×3 (00:14→20:10)
[2018-12-01] MEDS: LEVOTHYROXINE SODIUM 50 MCG TABLET PO SCH (06:02)
[2018-12-01] MEDS: HEPARIN SODIUM/DEXTROSE 25,000 UNITS/500 ML BAG IV SCH (06:47)
[2018-12-01 06:50] LABS: Hematocrit (blood only) 37.9 % (37-47); Hemoglobin 12.5 g/dL (12.0-16.0); Mean Corpuscular Hemoglobin 30.5 pg (25-34); Mean Corpuscular Volume 92.4 fL (80-100); Platelet Count 191 K/uL (130-400); RDW Coefficient of Variation 14.5 % (11.5-14.5); RDW Standard Deviation 48.9 fL (36.4-46.3); White Blood Count 4.51 K/uL (4.8-10.8)
[2018-12-01 07:10] LABS: Partial Thromboplastin Ratio 2.6
[2018-12-01 07:14] LABS: Partial Thromboplastin Time 71.5 Seconds (21.0-31.0)
[2018-12-01 07:20] LABS: BUN Creatinine Ratio 14.3 (10-20); Calcium 8.6 mg/dl (8.5-10.1); Creatinine Clr Calc Pharmacy 37.7 ml/min; Est GFR (Non-African American) 45.7
--- NOTE | 2018-12-01 07:20 | Hospitalist Progress Note ---
Date of Service December 01, 2018 Assessment & Plan (1) Small bowel obstruction: (2) Sinus pause: (3) Hypertensive urgency: (4) Kidney stones: (5) Hematuria: (6) Right ureteral stone: (7) Atrial fibrillation: (8) H/O colostomy: (9) Partial bowel obstruction: (10) Epistaxis: Patient is an 83-year-old female with a history of coronary disease/CABG, atrial fibrillation on Coumadin, PE/DVT on Coumadin, Diabetes, hypertension, breast and rectal cancer status post urostomy, presenting with small bowel obstruction. PT also c sinus pauses during stay-Cards on case Small bowel obstruction History of colostomy for rectal cancer (+) BMs +SB thickening on KUB Epistaxis Right nostril- site of NG tube in the setting of heparin drip for history of DVT, A fib -- Afrin BID, noseclip -- Restart heparin and Warfarin -- ENT-absorbable fibrillar material placed. She should refrain from blowing her nose or instrumenting her nose whatsoever for 2 weeks. It is up to the primary care team and the surgery team to decide on her anticoagulation, but this does put her at risk for recurrent epistaxis. Use Afrin and direct pressure as needed, but call if there are any acute bleeding that you cannot seem to control. Hematuria Right UPJ stone, 6mm -- Urology- will defer any surgical stone intervention at this time and allow patients bowels to recover. Will arrange appropriate outpatient follow up with our service. Hypertension improved continue PO Metoprolol Acute Pulmonary edema On room air, not in respiratory distress Chest x-ray: Positive pulmonary congestion BNP elevated Echocardiogram: EF 55-60%, mild LVH Lasix 20 mg IV Monitor input and output Coronary disease/CABG Denies chest pain Sinus Pause Dr Burns on case, Lopressor decreased, >3 sec pause today Atrial fibrillation on chronic Coumadin continue usual PO Metoprolol and Digoxin On anticoagulation PE/DVT, on chronic Coumadin last DVT 2 years ago as per patient management of anticoagulation as noted above Diabetes type 2 Insulin sliding scale History of breast and rectal cancer DVT prophylaxis resume with Heparin bridge soon Disposition On IV heparin and Warfarin, hold if rebleeds, adv diet lives at home PT/OT evaluation done, Rehab recommended ROS-No Headache, No Visual Changes, No Nausea, No Vomiting, No Fever, No Chills, No Neck Pain or Stiffness, No Chest Pain, No Palpitations, No SOB, No RAINEY, No Cough, No Sputum, No Wheezing, No Abdominal Pain, No Diarrhea, No Hematemesis, No Hemoptysis, No Unexpected Weight Loss, No Flank pain, No Melena, No Hematochezia, No Frequency, No Urgency, No Burning, No Hematuria, No Rashes, No Diaphoresis. Appetite is Normal, denies bleeding, +BM Physical Exam Gen-AAO x 3, NAD, Afebrile Head-NCAT, EOMI, PERRLA, Anicteric Sclera, No Posterior Pharyngeal Erythema Neck-Supple, No JVD, No Thyromegaly, No Masses, No LAD, No Bruits Lungs-Clear to Auscultation Bilaterally, No Rales, No Rhonchi, No Wheezing, No Crepitus Chest-No S4, +S1, +S2, No S3, No Murmurs, No Rubs, No Gallops, No Ectopy Abdomen-Soft, Bowel Sounds Present, Non Tender, Non Distended, No Hepatomegaly, No Splenomegaly, No Palpable Masses, No Rebound, No Rigidity, No Guarding Musculoskeletal-Full Range of Motion Bilaterally, No CVAT Extremities-No Cyanosis, No Clubbing, No Edema Nuero-Cranial Nerves II-XII grossly intact, Motor WNL, DTRs WNL, Strength WNL, Non Focal Psych-Normal Mood Results & Data Vital Signs (Past 12 Hours) Vital Signs Temp Pulse Pulse Pulse Resp BP BP 12/01/18 06:50 36.6 C 74 18 114/71 12/01/18 04:47 36.6 C 63 16 113/59 L 12/01/18 03:27 61 11/30/18 23:14 36.7 C 65 18 99/65 L 11/30/18 20:45 75 109/68 Pulse Ox 12/01/18 06:50 95 12/01/18 04:47 95 12/01/18 03:27 11/30/18 23:14 95 11/30/18 20:45 (1) Partial bowel obstruction Intestinal obstruction type: unspecified Qualified Code(s): K56.600 - Partial intestinal obstruction, unspecified as to cause
[2018-12-01] MEDS: TIMOLOL MALEATE 0.25% OP SOLN 5 ML BTL OP SCH (08:01)
[2018-12-01] MEDS: METOPROLOL TARTRATE 25 MG TAB PO SCH ×2 (08:01→20:10)
[2018-12-01] MEDS: TAMSULOSIN HCL 0.4 MG CAP PO SCH (08:01)
[2018-12-01] MEDS: INSULIN ASPART 100 UNITS/ML 3 ML PEN SC SCH ×4 (08:01→21:27)
[2018-12-01 08:47] LABS: INR 1.2 (0.9-1.1); Prothrombin Time 11.8 Seconds (9.0-12.0)
[2018-12-01] MEDS ORDERED: Nursing to Pharmacy 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 ONE (12:13)
[2018-12-01 13:41] LABS: Partial Thromboplastin Ratio 2.3
--- NOTE | 2018-12-01 14:06 | Cardiology Progress Note ---
Date of Service December 01, 2018 Assessment & Plan (1) Atrial fibrillation: Asymptomatic 3-second R to R interval is peripherally acceptable for this patient. She has chronic atrial fibrillation. Continue current dose of metoprolol 75 mg twice daily. 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 Subjective Chief complaint: Follow-up atrial fibrillation Subjective: Patient in a good mood. She tolerated solid breakfast this morning. Her nurse pointed out to me a 3-second pause that took place on telemetry this morning, the patient was asymptomatic. Review of Systems Review of Systems: All systems reviewed & are unremarkable except as noted in HPI & below Physical Exam Physical Exam: Temp Pulse Resp BP Pulse Ox 36.6 C 74 20 116/73 96 12/01/18 11:00 12/01/18 11:00 12/01/18 11:00 12/01/18 11:00 12/01/18 11:00 Constitutional: WD/WN, vitals as above Respiratory: normal respiratory effort, lungs clear to auscultation Gastrointestinal (Abdomen): Percussion/Palpation: abdomen nontender Neurologic: PERRL, EOMI, accommodation nl, no face palsy, no dysarthria Results & Data Vital Signs (Past 12 Hours) Vital Signs Temp Pulse Pulse Pulse Resp BP BP 12/01/18 11:00 36.6 C 74 20 116/73 12/01/18 08:45 63 12/01/18 07:00 36.6 C 81 20 122/69 12/01/18 06:50 36.6 C 74 18 114/71 12/01/18 04:47 36.6 C 63 16 113/59 L 12/01/18 03:27 61 Pulse Ox 12/01/18 11:00 96 12/01/18 08:45 12/01/18 07:00 94 12/01/18 06:50 95 12/01/18 04:47 95 12/01/18 03:27 Laboratory Results PTT 61 seconds, INR 1.2, potassium 4.0
[2018-12-01] MEDS ORDERED: WARFARIN SOD 3 MG TAB PO SCH (16:00)
[2018-12-01] MEDS: DIGOXIN 0.125 MG TAB PO SCH (16:26)
[2018-12-01] MEDS: ROSUVASTATIN CALCIUM 10 MG TAB PO SCH (20:08)
[2018-12-01] MEDS: INSULIN GLARGINE SOLOSTAR 100 UNITS/ML 3 ML PEN SQ SCH (21:27)
[2018-12-02] MEDS: HEPARIN SODIUM/DEXTROSE 25,000 UNITS/500 ML BAG IV SCH (03:32)
[2018-12-02 05:33] LABS: Hemoglobin 12.2 g/dL (12.0-16.0); Mean Corpuscular Hemoglobin 30.7 pg (25-34); Mean Platelet Volume 10.2 fL (7.4-10.4); Platelet Count 209 K/uL (130-400); RDW Coefficient of Variation 14.4 % (11.5-14.5); RDW Standard Deviation 48.6 fL (36.4-46.3); Red Blood Count 3.98 M/uL (4.2-5.4); White Blood Count 4.91 K/uL (4.8-10.8)
[2018-12-02 06:00] LABS: Calcium 8.5 mg/dl (8.5-10.1); Est GFR (African American) 38.3
[2018-12-02 06:11] LABS: Partial Thromboplastin Ratio 2.2
[2018-12-02 06:13] LABS: Partial Thromboplastin Time 59.2 Seconds (21.0-31.0)
[2018-12-02] MEDS: LEVOTHYROXINE SODIUM 50 MCG TABLET PO SCH (06:18)
--- NOTE | 2018-12-02 07:06 | Hospitalist Progress Note ---
Date of Service December 02, 2018 Assessment & Plan (1) Small bowel obstruction: (2) Sinus pause: (3) Hypertensive urgency: (4) Kidney stones: (5) Hematuria: (6) Right ureteral stone: (7) Atrial fibrillation: (8) H/O colostomy: (9) Partial bowel obstruction: (10) Epistaxis: Patient is an 83-year-old female with a history of coronary disease/CABG, atrial fibrillation on Coumadin, PE/DVT on Coumadin, Diabetes, hypertension, breast and rectal cancer status post urostomy, presenti ng with small bowel obstruction. Small bowel obstruction History of colostomy for rectal cancer (+) BMs +SB thickening on KUB Epistaxis Right nostril- site of NG tube in the setting of heparin drip for history of DVT, A fib -- Afrin BID, noseclip -- Stop heparin secondary to arm pain from phlebotomy, start Lovenox and continue Warfarin -- ENT-absorbable fibrillar material placed. She should refrain from blowing her nose or instrumenting her nose whatsoever for 2 weeks. It is up to the primary care team and the surgery team to decide on her anticoagulation, but this does put her at risk for recurrent epistaxis. Use Afrin and direct pressure as needed, but call if there are any acute bleeding that you cannot seem to control. Hematuria Right UPJ stone, 6mm -- Urology- will defer any surgical stone intervention at this time and allow patients bowels to recover. Will arrange appropriate outpatient follow up with our service. Hypertension improved continue PO Metoprolol Acute Pulmonary edema On room air, not in respiratory distress Chest x-ray: Positive pulmonary congestion BNP elevated Echocardiogram: EF 55-60%, mild LVH Lasix 20 mg IV Monitor input and output Coronary disease/CABG Denies chest pain Atrial fibrillation on chronic Coumadin continue usual PO Metoprolol and Digoxin Resume Coumadin resume anticoagulation PE/DVT, on chronic Coumadin last DVT 2 years ago as per patient management of anticoagulation as noted above Diabetes type 2 Insulin sliding scale Glycemic control consult History of breast and rectal cancer DVT prophylaxis anticoagulation held for now due to epistaxis, hematuria resume bridge c Lovenox Labs checked Disposition lives at home PT/OT evaluation done, Rehab recommended, DC when INR therapeutic if not bleeding, Tolerated diet and +BMs ROS-No Headache, No Visual Changes, No Nausea, No Vomiting, No Fever, No Chills, No Neck Pain or Stiffness, No Chest Pain, No Palpitations, No SOB, No RAINEY, No Cough, No Sputum, No Wheezing, No Abdominal Pain, No Diarrhea, No Hematemesis, No Hemoptysis, No Unexpected Weight Loss, No Flank pain, No Melena, No Hematochezia, No Frequency, No Urgency, No Burning, No Hematuria, No Rashes, No Diaphoresis. Appetite is Normal, denies bleeding Physical Exam Gen-AAO x 3, NAD, Afebrile Head-NCAT, EOMI, PERRLA, Anicteric Sclera, No Posterior Pharyngeal Erythema Neck-Supple, No JVD, No Thyromegaly, No Masses, No LAD, No Bruits Lungs-Clear to Auscultation Bilateral, No Rales, No Rhonchi, No Wheezing, No Crepitus Chest-No S4, +S1, +S2, No S3, No Murmurs, No Rubs, No Gallops, No Ectopy Abdomen-Soft, Bowel Sounds Present, Non Tender, Non Distended, No Hepatomegaly, No Splenomegaly, No Palpable Masses, No Rebound, No Rigidity, No Guarding Musculoskeletal-Full Range of Motion Bilaterally, No CVAT Extremities-No Cyanosis, No Clubbing, No Edema Nuero-Cranial Nerves II-XII grossly intact, Motor WNL, DTRs WNL, Strength WNL, Non Focal Psych-Normal Mood Results & Data Vital Signs (Past 12 Hours) Vital Signs Temp Pulse Pulse Pulse Resp BP Pulse Ox 12/02/18 03:28 36.7 C 76 20 143/75 H 97 12/01/18 23:22 68 12/01/18 22:24 36.8 C 73 20 103/60 96 12/01/18 19:12 36.8 C 84 18 134/74 92 Current Diagnoses Hypertensive urgency (11/24/18) Other specified heart block (11/24/18) Unspecified atrial fibrillation (11/24/18) Partial intestinal obstruction, unspecified as to cause (11/24/18) Unspecified intestinal obstruction, unspecified as to partial versus complete obstruction (11/24/18) Calculus of kidney (11/24/18) Calculus of ureter (11/24/18) Epistaxis (11/24/18) Hematuria, unspecified (11/24/18) Personal history of other malignant neoplasm of rectum, rectosigmoid junction, and anus (11/24/18) Personal history of malignant neoplasm of breast (11/24/18) Allergies iodine Allergy (Intermediate, Verified 11/23/18 22:24) ITCHING lisinopril Allergy (Unknown, Verified 11/23/18 22:24) Sulfa (Sulfonamide Antibiotics) Allergy (Unknown, Verified 11/23/18 22:24) ITCHING Height/Weight/Isolation Height 5 ft 2 in Weight 85.4 kg CBC 11/23/18 11/24/18 11/25/18 22:00 05:35 06:52 Creatinine 1.46 H 1.24 H 1.41 H 11/26/18 11/27/18 11/28/18 06:57 07:04 07:43 Creatinine 1.15 1.16 1.33 H 11/29/18 11/30/18 12/01/18 07:01 09:59 06:02 Creatinine 1.40 H 1.26 H 1.10 12/02/18 05:15 Creatinine 1.44 H D Chemistry 11/30/18 12/01/18 12/02/18 09:59 06:02 05:15 Sodium 140 138 138 Potassium 4.1 4.0 4.0 Chloride 108 H 107 105 Carbon Dioxide 25 26 24 Anion Gap 7.0 5.0 9.0 BUN 23 H 16 20 H Creatinine 1.26 H 1.10 1.44 H D Glucose 282 H 205 H 256 H (1) Partial bowel obstruction Intestinal obstruction type: unspecified Qualified Code(s): K56.600 - Partial intestinal obstruction, unspecified as to cause
[2018-12-02] MEDS: DOCUSATE SODIUM 100 MG CAP PO SCH ×2 (08:09→21:28)
[2018-12-02] MEDS: TAMSULOSIN HCL 0.4 MG CAP PO SCH (08:09)
[2018-12-02] MEDS: METOPROLOL TARTRATE 25 MG TAB PO SCH ×2 (08:09→21:28)
[2018-12-02] MEDS: TIMOLOL MALEATE 0.25% OP SOLN 5 ML BTL OP SCH (08:09)
[2018-12-02] MEDS: INSULIN ASPART 100 UNITS/ML 3 ML PEN SC SCH ×4 (08:10→21:27)
[2018-12-02] MEDS: ENOXAPARIN 100 MG/1ML SYR SC SCH ×2 (08:10→21:25)
--- NOTE | 2018-12-02 11:00 | Cardiology Progress Note ---
Date of Service December 02, 2018 Assessment & Plan (1) Atrial fibrillation: Atrial fibrillation, controlled ventricular response, asymptomatic. Patient with difficult IV access. Agree with transitioning her to Lovenox anticoagulation dose 90 mg subcu to every 12. Continue Coumadin loading. Subjective Chief complaint: Follow-up abdominal pain: Subjective: Patient feeling well. Her diet has been advanced. Telemetry reveals stable atrial fibrillation, with an acceptable degree of bradycardia when she is sleeping. Review of Systems Review of Systems: All systems reviewed & are unremarkable except as noted in HPI & below Physical Exam Physical Exam: Temp Pulse Resp BP Pulse Ox 36.8 C 76 20 129/76 96 12/02/18 07:25 12/02/18 08:47 12/02/18 07:25 12/02/18 07:25 12/02/18 07:25 Constitutional: WD/WN, vitals as above Respiratory: normal respiratory effort, lungs clear to auscultation Cardiovascular: Rate/Rhythm: + irregularly irregular Heart Sounds: no murmur Extremities: no edema Gastrointestinal (Abdomen): normal bowel sounds, soft, nontender, no hepatosplenomegaly Neurologic: PERRL, EOMI, accommodation nl, no face palsy, no dysarthria Results & Data Vital Signs (Past 12 Hours) Vital Signs Temp Pulse Pulse Resp BP BP Pulse Ox 12/02/18 08:47 76 12/02/18 07:25 36.8 C 73 20 129/76 96 12/02/18 03:28 36.7 C 76 20 143/75 H 97 12/01/18 23:22 68
[2018-12-02 13:29] LABS: INR 1.2 (0.9-1.1); Prothrombin Time 12.1 Seconds (9.0-12.0)
[2018-12-02] MEDS ORDERED: Nursing to Pharmacy 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 ONE (13:33)
[2018-12-02] MEDS ORDERED: WARFARIN SOD 6 MG TAB PO SCH (16:00)
[2018-12-02] MEDS: DIGOXIN 0.125 MG TAB PO SCH (17:21)
[2018-12-02] MEDS: INSULIN GLARGINE SOLOSTAR 100 UNITS/ML 3 ML PEN SQ SCH ×2 (21:27→21:57)
[2018-12-02] MEDS: ROSUVASTATIN CALCIUM 10 MG TAB PO SCH (21:28)
[2018-12-03] MEDS: LEVOTHYROXINE SODIUM 50 MCG TABLET PO SCH (05:26)
[2018-12-03 07:19] LABS: INR 1.1 (0.9-1.1); Prothrombin Time 11.6 Seconds (9.0-12.0)
--- NOTE | 2018-12-03 07:37 | Hospitalist Progress Note ---
Date of Service December 03, 2018 Assessment & Plan (1) Epistaxis: Assessment & Plan (1) Small bowel obstruction: (2) Sinus pause: (3) Hypertensive urgency: (4) Kidney stones: (5) Hematuria: (6) Right ureteral stone: (7) Atrial fibrillation: (8) H/O colostomy: (9) Partial bowel obstruction: (10) Epistaxis: Patient is an 83-year-old female with a history of coronary disease/CABG, atrial fibrillation on Coumadin, PE/DVT on Coumadin, Diabetes, hypertension, breast and rectal cancer status post urostomy, presenting with small bowel obstruction. Small bowel obstruction History of colostomy for rectal cancer (+) BMs +SB thickening on KUB Epistaxis Right nostril- site of NG tube in the setting of heparin drip for history of DVT, A fib -- Afrin BID, noseclip -- Stop heparin secondary to arm pain from phlebotomy, start Lovenox and continue Warfarin -- ENT-absorbable fibrillar material placed. She should refrain from blowing her nose or instrumenting her nose whatsoever for 2 weeks. It is up to the primary care team and the surgery team to decide on her anticoagulation, but this does put her at risk for recurrent epistaxis. Use Afrin and direct pressure as needed, but call if there are any acute bleeding that you cannot seem to control. Hematuria Right UPJ stone, 6mm -- Urology- will defer any surgical stone intervention at this time and allow patients bowels to recover. Will arrange appropriate outpatient follow up with our service. Hypertension improved continue PO Metoprolol Acute Pulmonary edema On room air, not in respiratory distress Chest x-ray: Positive pulmonary congestion BNP elevated Echocardiogram: EF 55-60%, mild LVH Lasix 20 mg IV Monitor input and output Coronary disease/CABG Denies chest pain Atrial fibrillation on chronic Coumadin continue usual PO Metoprolol and Digoxin Resume Coumadin resume anticoagulation PE/DVT, on chronic Coumadin last DVT 2 years ago as per patient management of anticoagulation as noted above Diabetes type 2 Insulin sliding scale Glycemic control consult History of breast and rectal cancer DVT prophylaxis resume bridge c Lovenox Labs checked Disposition lives at home PT/OT evaluation done, Rehab recommended, DC when INR therapeutic if not bleeding, Tolerated diet and +BMs ROS-No Headache, No Visual Changes, No Nausea, No Vomiting, No Fever, No Chills, No Neck Pain or Stiffness, No Chest Pain, No Palpitations, No SOB, No RAINEY, No Cough, No Sputum, No Wheezing, No Abdominal Pain, No Diarrhea, No Hematemesis, No Hemoptysis, No Unexpected Weight Loss, No Flank pain, No Melena, No Hematochezia, No Frequency, No Urgency, No Burning, No Hematuria, No Rashes, No Diaphoresis. Appetite is Normal, denies bleeding Physical Exam Gen-AAO x 3, NAD, Afebrile Head-NCAT, EOMI, PERRLA, Anicteric Sclera, No Posterior Pharyngeal Erythema Neck-Supple, No JVD, No Thyromegaly, No Masses, No LAD, No Bruits Lungs-Clear to Auscultation Bilateral, No Rales, No Rhonchi, No Wheezing, No Crepitus Chest-No S4, +S1, +S2, No S3, No Murmurs, No Rubs, No Gallops, No Ectopy Abdomen-Soft, Bowel Sounds Present, Non Tender, Non Distended, No Hepatomegaly, No Splenomegaly, No Palpable Masses, No Rebound, No Rigidity, No Guarding Musculoskeletal-Full Range of Motion Bilaterally, No CVAT Extremities-No Cyanosis, No Clubbing, No Edema Nuero-Cranial Nerves II-XII grossly intact, Motor WNL, DTRs WNL, Strength WNL, Non Focal Psych-Normal Mood Results & Data Vital Signs (Past 12 Hours) Vital Signs Temp Pulse Pulse Resp BP Pulse Ox 12/03/18 04:13 36.7 C 75 17 109/62 96 12/02/18 23:30 68 12/02/18 23:17 36.5 C 75 20 118/72 94
[2018-12-03] MEDS: INSULIN ASPART 100 UNITS/ML 3 ML PEN SC SCH ×4 (08:12→20:57)
[2018-12-03] MEDS: DOCUSATE SODIUM 100 MG CAP PO SCH ×2 (08:14→20:42)
[2018-12-03] MEDS: ENOXAPARIN 100 MG/1ML SYR SC SCH ×2 (08:14→20:41)
[2018-12-03] MEDS: TIMOLOL MALEATE 0.25% OP SOLN 5 ML BTL OP SCH (08:15)
[2018-12-03] MEDS: METOPROLOL TARTRATE 25 MG TAB PO SCH ×2 (08:15→20:42)
[2018-12-03] MEDS: TAMSULOSIN HCL 0.4 MG CAP PO SCH (08:16)
[2018-12-03] MEDS ORDERED: WARFARIN SOD 6 MG TAB PO SCH (16:00)
[2018-12-03] MEDS: DIGOXIN 0.125 MG TAB PO SCH (16:59)
[2018-12-03] MEDS: ROSUVASTATIN CALCIUM 10 MG TAB PO SCH (20:42)
[2018-12-03] MEDS: INSULIN GLARGINE SOLOSTAR 100 UNITS/ML 3 ML PEN SQ SCH (20:42)
[2018-12-04 06:01] LABS: INR 1.2 (0.9-1.1); Prothrombin Time 12.5 Seconds (9.0-12.0)
[2018-12-04] MEDS: LEVOTHYROXINE SODIUM 50 MCG TABLET PO SCH (06:08)
[2018-12-04 06:19] LABS: Calcium 9.5 mg/dl (8.5-10.1); Creatinine Clr Calc Pharmacy 29.6 ml/min; Est GFR (African American) 39.3; Est GFR (Non-African American) 33.9; Potassium 4.4 mmol/L (3.5-5.1)
[2018-12-04] MEDS: DOCUSATE SODIUM 100 MG CAP PO SCH ×2 (07:28→20:45)
[2018-12-04] MEDS: METOPROLOL TARTRATE 25 MG TAB PO SCH ×2 (07:29→20:45)
[2018-12-04] MEDS: TAMSULOSIN HCL 0.4 MG CAP PO SCH (07:29)
[2018-12-04] MEDS: ENOXAPARIN 100 MG/1ML SYR SC SCH ×2 (07:29→20:45)
[2018-12-04] MEDS: TIMOLOL MALEATE 0.25% OP SOLN 5 ML BTL OP SCH (07:29)
[2018-12-04] MEDS: INSULIN ASPART 100 UNITS/ML 3 ML PEN SC SCH ×4 (08:04→20:51)
--- NOTE | 2018-12-04 08:07 | Hospitalist Progress Note ---
Date of Service December 04, 2018 Assessment & Plan (1) Epistaxis: Assessment & Plan (1) Small bowel obstruction: (2) Sinus pause: (3) Hypertensive urgency: (4) Kidney stones: (5) Hematuria: (6) Right ureteral stone: (7) Atrial fibrillation: (8) H/O colostomy: (9) Partial bowel obstruction: (10) Epistaxis: (11) DM II (12) Stage III CKD Patient is an 83-year-old female with a history of coronary disease/CABG, atrial fibrillation on Coumadin, PE/DVT on Coumadin, Diabetes, hypertension, breast and rectal cancer status post urostomy, presenting with small bowel obstruction. Small bowel obstruction History of colostomy for rectal cancer (+) BMs +SB thickening on KUB Epistaxis Right nostril- site of NG tube in the setting of heparin drip for history of DVT, A fib -- Afrin BID, noseclip -- Lovenox and continue Warfarin -- ENT-absorbable fibrillar material placed. She should refrain from blowing her nose or instrumenting her nose whatsoever for 2 weeks. It is up to the primary care team and the surgery team to decide on her anticoagulation, but this does put her at risk for recurrent epistaxis. Use Afrin and direct pressure as needed, but call if there are any acute bleeding that you cannot seem to control. Hematuria Right UPJ stone, 6mm -- Urology- will defer any surgical stone intervention at this time and allow patients bowels to recover. Will arrange appropriate outpatient follow up with our service. Hypertension improved continue PO Metoprolol Acute Pulmonary edema On room air, not in respiratory distress Chest x-ray: Positive pulmonary congestion BNP elevated Echocardiogram: EF 55-60%, mild LVH Coronary disease/CABG Denies chest pain Atrial fibrillation on chronic Coumadin continue usual PO Metoprolol and Digoxin PE/DVT, on chronic Coumadin last DVT 2 years ago as per patient management of anticoagulation as noted above Diabetes type 2 Insulin sliding scale Glycemic control consult History of breast and rectal cancer DVT prophylaxis resume bridge c Lovenox Labs checked Disposition lives at home PT/OT evaluation done, Rehab recommended, DC when INR therapeutic if not bleeding, Tolerated diet and +BMs ROS-No Headache, No Visual Changes, No Nausea, No Vomiting, No Fever, No Chills, No Neck Pain or Stiffness, No Chest Pain, No Palpitations, No SOB, No RAINEY, No Cough, No Sputum, No Wheezing, No Abdominal Pain, No Diarrhea, No Hematemesis, No Hemoptysis, No Unexpected Weight Loss, No Flank pain, No Melena, No Hematochezia, No Frequency, No Urgency, No Burning, No Hematuria, No Rashes, No Diaphoresis. Appetite is Normal, denies bleeding Physical Exam Gen-AAO x 3, NAD, Afebrile Head-NCAT, EOMI, PERRLA, Anicteric Sclera, No Posterior Pharyngeal Erythema Neck-Supple, No JVD, No Thyromegaly, No Masses, No LAD, No Bruits Lungs-Clear to Auscultation Bilateral, No Rales, No Rhonchi, No Wheezing, No Crepitus Chest-No S4, +S1, +S2, No S3, No Murmurs, No Rubs, No Gallops, No Ectopy Abdomen-Soft, Bowel Sounds Present, Non Tender, Non Distended, No Hepatomegaly, No Splenomegaly, No Palpable Masses, No Rebound, No Rigidity, No Guarding Musculoskeletal-Full Range of Motion Bilaterally, No CVAT Extremities-No Cyanosis, No Clubbing, No Edema Nuero-Cranial Nerves II-XII grossly intact, Motor WNL, DTRs WNL, Strength WNL, Non Focal Psych-Normal Mood Results & Data Vital Signs (Past 12 Hours) Vital Signs Temp Pulse Pulse Resp BP Pulse Ox 12/04/18 07:27 36.7 C 67 18 126/76 96 12/04/18 03:00 36.4 C L 76 19 133/80 94 12/03/18 23:31 69 12/03/18 23:15 36.7 C 84 20 135/79 95 Current Diagnoses Hypertensive urgency (11/24/18) Other specified heart block (11/24/18) Unspecified atrial fibrillation (11/24/18) Partial intestinal obstruction, unspecified as to cause (11/24/18) Unspecified intestinal obstruction, unspecified as to partial versus complete o bstruction (11/24/18) Calculus of kidney (11/24/18) Calculus of ureter (11/24/18) Epistaxis (11/24/18) Hematuria, unspecified (11/24/18) Personal history of other malignant neoplasm of rectum, rectosigmoid junction, and anus (11/24/18) Personal history of malignant neoplasm of breast (11/24/18) Allergies iodine Allergy (Intermediate, Verified 11/23/18 22:24) ITCHING lisinopril Allergy (Unknown, Verified 11/23/18 22:24) Sulfa (Sulfonamide Antibiotics) Allergy (Unknown, Verified 11/23/18 22:24) ITCHING Height/Weight/Isolation Height 5 ft 2 in Weight 84.3 kg Chemistry 12/04/18 05:22 Sodium 140 Potassium 4.4 Chloride 105 Carbon Dioxide 27 Anion Gap 8.0 BUN 27 H Creatinine 1.41 H Glucose 217 H
[2018-12-04] MEDS: WARFARIN SOD 6 MG TAB PO SCH (15:24)
[2018-12-04] MEDS: DIGOXIN 0.125 MG TAB PO SCH (15:24)
[2018-12-04] MEDS: ROSUVASTATIN CALCIUM 10 MG TAB PO SCH (20:45)
[2018-12-04] MEDS: INSULIN GLARGINE SOLOSTAR 100 UNITS/ML 3 ML PEN SQ SCH (20:46)
[2018-12-05] MEDS: LEVOTHYROXINE SODIUM 50 MCG TABLET PO SCH (05:56)
[2018-12-05 07:22] LABS: Hematocrit (blood only) 41.1 % (37-47); Hemoglobin 13.5 g/dL (12.0-16.0); Mean Corpuscular Hemoglobin 30.1 pg (25-34); Mean Corpuscular Hgb Conc 32.8 g/dL (32-36); Mean Corpuscular Volume 91.7 fL (80-100); Mean Platelet Volume 10.1 fL (7.4-10.4); Platelet Count 249 K/uL (130-400); RDW Coefficient of Variation 14.4 % (11.5-14.5); RDW Standard Deviation 48.3 fL (36.4-46.3); Red Blood Count 4.48 M/uL (4.2-5.4); White Blood Count 4.36 K/uL (4.8-10.8)
[2018-12-05 07:33] LABS: INR 1.4 (0.9-1.1)
[2018-12-05] MEDS: METOPROLOL TARTRATE 25 MG TAB PO SCH ×2 (07:43→20:21)
[2018-12-05] MEDS: DOCUSATE SODIUM 100 MG CAP PO SCH ×2 (07:43→20:21)
[2018-12-05] MEDS: TAMSULOSIN HCL 0.4 MG CAP PO SCH (07:44)
[2018-12-05] MEDS: TIMOLOL MALEATE 0.25% OP SOLN 5 ML BTL OP SCH (07:44)
[2018-12-05] MEDS: ENOXAPARIN 100 MG/1ML SYR SC SCH (07:44)
[2018-12-05] MEDS: INSULIN ASPART 100 UNITS/ML 3 ML PEN SC SCH ×4 (08:15→20:23)
[2018-12-05] MEDS: WARFARIN SOD 6 MG TAB PO SCH (15:25)
[2018-12-05] MEDS: DIGOXIN 0.125 MG TAB PO SCH (15:25)
--- NOTE | 2018-12-05 16:12 | Hospitalist Progress Note ---
Date of Service December 05, 2018 Assessment & Plan (1) Small bowel obstruction: Patient is an 83-year-old female with a history of coronary disease/CABG, atrial fibrillation on Coumadin, PE/DVT on Coumadin, Diabetes, hypertension, breast and rectal cancer status post urostomy, presenting with small bowel obstruction. SMALL BOWEL OBSTRUCTION History of colostomy for rectal cancer (+) BMs NG tube placed and removed Tolerating diet well EPISTAXIS Resolved Right nostril- site of NG tube in the setting of heparin drip for history of DVT, A fib -- Afrin BID, noseclip -- heparin discontinued --ENT consulted, fibrillar material placed on the right nostril --No recurrence Lovenox plus Coumadin resumed Monitor closely HEMATURIA Right UPJ stone, 6mm --Outpatient follow-up HYPERTENSION Stable continue PO Metoprolol ACUTE PULMONARY EDEMA On room air, not in respiratory distress Chest x-ray: Positive pulmonary congestion, possible edema BNP elevated Echocardiogram: EF 55-60%, mild LVH Lasix 20 mg IV ordered, improved, repeat CXR improved CORONARY DISEASE/CABG Denies chest pain ATRIAL FIBRILLATION ON CHRONIC COUMADIN Now on Coumadin with Lovenox bridge INR 1.4 We will increase Coumadin to 8 mg p.o. daily, reduce Lovenox to 90 mg subcutaneous daily in light of CKD Check INR daily PE/DVT, on chronic Coumadin last DVT 2 years ago as per patient management of anticoagulation as noted above Diabetes type 2 Insulin sliding scale Glycemic control consult History of breast and rectal cancer DVT prophylaxis On Coumadin with Lovenox bridge Disposition Pending lives at home Subjective For small bowel obstruction, complicated by epistaxis, hematuria in a patient with chronic Coumadin use for atrial fibrillation DVT Seen resting bedside chair, comfortable, alert, oriented x3 States she feels fine overall Colostomy output has returned to normal Denies nausea, tolerating diet well No recurrence of epistaxis, hematuria, no signs of melena or hematochezia No other symptoms Review of Systems Review of Systems: All systems reviewed & are unremarkable except as noted in HPI & below Physical Exam Physical Exam: General- oriented x 3, not in distress, speaks in sentences with no effort or accessory muscle use Eyes- anicteric Neck- no JVD Lungs- clear breath sounds bilaterally, no rales/wheezes Heart- normal rate, regular rhythm; no murmurs Abdomen- normal bowel sounds, nondistended, soft, nontender Colostomy site: Positive stools-brown, formed Extremities- no pretibial edema, no calf tenderness Neuro- alert, oriented x 3; no gross focal neurologic deficits Skin- warm & dry Results & Data Vital Signs (Past 12 Hours) Vital Signs Temp Pulse Pulse Pulse Resp BP BP 12/05/18 15:30 36.7 C 75 17 127/72 12/05/18 15:25 76 12/05/18 14:59 74 12/05/18 11:00 36.7 C 77 18 115/57 L 12/05/18 06:59 36.7 C 71 18 114/71 Pulse Ox 12/05/18 15:30 95 12/05/18 15:25 12/05/18 14:59 12/05/18 11:00 97 12/05/18 06:59 96 Laboratory Results Laboratory Results - last 24 hr 12/04/18 12/04/18 12/05/18 16:15 20:12 07:06 WBC RBC Hgb Hct MCV MCH MCHC RDW Std Deviation RDW Coeff of Kei Plt Count MPV PT 14.0 H INR 1.4 H POC Glucose 171 H 212 H 12/05/18 12/05/18 12/05/18 07:06 07:15 11:26 WBC 4.36 L RBC 4.48 Hgb 13.5 Hct 41.1 MCV 91.7 MCH 30.1 MCHC 32.8 RDW Std Deviation 48.3 H RDW Coeff of Kei 14.4 Plt Count 249 MPV 10.1 PT INR POC Glucose 231 H 232 H
[2018-12-05] MEDS ORDERED: WARFARIN SOD 2 MG TAB PO ONE (16:30)
[2018-12-05] MEDS: ROSUVASTATIN CALCIUM 10 MG TAB PO SCH (20:21)
[2018-12-05] MEDS: INSULIN GLARGINE SOLOSTAR 100 UNITS/ML 3 ML PEN SQ SCH (20:22)
[2018-12-06] MEDS: LEVOTHYROXINE SODIUM 50 MCG TABLET PO SCH (06:01)
[2018-12-06 07:36] LABS: INR 1.6 (0.9-1.1); Prothrombin Time 15.6 Seconds (9.0-12.0)
[2018-12-06] MEDS: TIMOLOL MALEATE 0.25% OP SOLN 5 ML BTL OP SCH (07:39)
[2018-12-06] MEDS: TAMSULOSIN HCL 0.4 MG CAP PO SCH (07:40)
[2018-12-06] MEDS: DOCUSATE SODIUM 100 MG CAP PO SCH ×2 (07:40→20:54)
[2018-12-06] MEDS: METOPROLOL TARTRATE 25 MG TAB PO SCH ×2 (07:40→20:54)
[2018-12-06 07:57] LABS: Calcium 9.5 mg/dl (8.5-10.1); Creatinine Clr Calc Pharmacy 30.5 ml/min; Est GFR (African American) 41.4; Est GFR (Non-African American) 35.7; Potassium 4.2 mmol/L (3.5-5.1)
[2018-12-06] MEDS: INSULIN ASPART 100 UNITS/ML 3 ML PEN SC SCH ×5 (08:12→23:20)
[2018-12-06] MEDS ORDERED: ENOXAPARIN 100 MG/1ML SYR SC SCH (09:00)
[2018-12-06] MEDS: DIGOXIN 0.125 MG TAB PO SCH (15:12)
[2018-12-06] MEDS ORDERED: WARFARIN SOD 4 MG TAB PO SCH (16:00)
--- NOTE | 2018-12-06 18:14 | Hospitalist Progress Note ---
Date of Service December 06, 2018 Assessment & Plan (1) Small bowel obstruction: Patient is an 83-year-old female with a history of coronary disease/CABG, atrial fibrillation on Coumadin, PE/DVT on Coumadin, Diabetes, hypertension, breast and rectal cancer status post urostomy, presenting with small bowel obstruction. SMALL BOWEL OBSTRUCTION History of colostomy for rectal cancer (+) BMs NG tube placed and removed Tolerating diet well EPISTAXIS Resolved Right nostril- site of NG tube in the setting of heparin drip for history of DVT, A fib -- Afrin BID, noseclip -- heparin discontinued --ENT consulted, fibrillar material placed on the right nostril --No recurrence Lovenox plus Coumadin resumed Monitor closely HEMATURIA Right UPJ stone, 6mm --Outpatient follow-up HYPERTENSION Stable continue PO Metoprolol ACUTE PULMONARY EDEMA On room air, not in respiratory distress Chest x-ray: Positive pulmonary congestion, possible edema BNP elevated Echocardiogram: EF 55-60%, mild LVH Lasix 20 mg IV ordered, improved, repeat CXR improved CORONARY DISEASE/CABG Denies chest pain ATRIAL FIBRILLATION ON CHRONIC COUMADIN Now on Coumadin with Lovenox bridge INR 1.6 Coumadin to 8 mg p.o. daily, Lovenox to 90 mg subcutaneous daily in light of CKD Check INR daily PE/DVT, on chronic Coumadin last DVT 2 years ago as per patient management of anticoagulation as noted above Diabetes type 2 Insulin sliding scale Glycemic control consult History of breast and rectal cancer DVT prophylaxis On Coumadin with Lovenox bridge Disposition Pending lives at home Subjective ff up for bowel obstruction, complicated by hematuria and epistaxis Seen resting in bed, comfortable, not in distress Tolerating diet well, positive stool output in colostomy bag Denies bleeding Denies other symptoms Review of Systems Review of Systems: All systems reviewed & are unremarkable except as noted in HPI & below Physical Exam Physical Exam: General- oriented x 3, not in distress, speaks in sentences with no effort or accessory muscle use Eyes- anicteric Neck- no JVD Lungs- clear BS BL no rales/wheezes Heart- normal rate, regular rhythm; no murmurs Abdomen- normal bowel sounds, nondistended, soft, nontender Colostomy site no infection Extremities- no pretibial edema, no calf tenderness Neuro- alert, oriented x 3; no gross focal neurologic deficits Skin- warm & dry Results & Data Vital Signs (Past 12 Hours) Vital Signs Temp Pulse Pulse Pulse Resp BP BP 12/06/18 16:00 70 12/06/18 15:18 36.8 C 68 18 123/74 12/06/18 15:12 68 12/06/18 10:59 36.7 C 63 16 125/64 12/06/18 07:00 36.7 C 77 20 123/74 Pulse Ox 12/06/18 16:00 12/06/18 15:18 93 12/06/18 15:12 12/06/18 10:59 91 12/06/18 07:00 94 Laboratory Results Laboratory Results - last 24 hr 12/05/18 12/06/18 12/06/18 20:12 07:14 07:14 PT 15.6 H INR 1.6 H Sodium 137 Potassium 4.2 Chloride 104 Carbon Dioxide 26 Anion Gap 7.0 BUN 30 H Creatinine 1.35 H Est Cr Clr Drug Dosing 30.5 Est GFR ( Amer) 41.4 Est GFR (Non-Af Amer) 35.7 BUN/Creatinine Ratio 22.0 H Glucose 256 H POC Glucose 216 H Calcium 9.5 12/06/18 12/06/18 12/06/18 07:37 11:29 16:21 PT INR Sodium Potassium Chloride Carbon Dioxide Anion Gap BUN Creatinine Est Cr Clr Drug Dosing Est GFR ( Amer) Est GFR (Non-Af Amer) BUN/Creatinine Ratio Glucose POC Glucose 243 H 280 H 220 H Calcium
[2018-12-06] MEDS ORDERED: PHARMACY GLYCEMIC MGMT CONSULT PRN (19:34)
[2018-12-06] MEDS: ROSUVASTATIN CALCIUM 10 MG TAB PO SCH (20:54)
[2018-12-06] MEDS ORDERED: INSULIN GLARGINE SOLOSTAR 100 UNITS/ML 3 ML PEN SQ SCH (21:00)
[2018-12-07] MEDS: INSULIN ASPART 100 UNITS/ML 3 ML PEN SC SCH ×3 (04:02→13:11)
[2018-12-07] MEDS: LEVOTHYROXINE SODIUM 50 MCG TABLET PO SCH (04:04)
[2018-12-07 07:24] LABS: INR 2.2 (0.9-1.1); Prothrombin Time 21.3 Seconds (9.0-12.0)
[2018-12-07 07:47] LABS: BUN Creatinine Ratio 23.4 (10-20); Calcium 9.4 mg/dl (8.5-10.1); Creatinine Clr Calc Pharmacy 30.7 ml/min; Est GFR (African American) 41.8; Potassium 4.2 mmol/L (3.5-5.1)
[2018-12-07] MEDS: METOPROLOL TARTRATE 25 MG TAB PO SCH (08:22)
[2018-12-07] MEDS: TAMSULOSIN HCL 0.4 MG CAP PO SCH (08:23)
[2018-12-07] MEDS: DOCUSATE SODIUM 100 MG CAP PO SCH (08:23)
[2018-12-07] MEDS: TIMOLOL MALEATE 0.25% OP SOLN 5 ML BTL OP SCH (08:26)
[2018-12-07] MEDS ORDERED: INSULIN GLARGINE SOLOSTAR 100 UNITS/ML 3 ML PEN SQ SCH (09:00)
--- NOTE | 2018-12-07 10:27 | Pharmacy Report ---
Pharmacy Glycemic Short Note 2 - Date of Service December 07, 2018 - Glycemic Short BSG Results (Last 24 hours): 12/06/18 12/06/18 12/06/18 11:29 16:21 20:26 Glucose POC Glucose 280 H 220 H 236 H 12/06/18 12/07/18 12/07/18 23:17 03:59 07:01 Glucose 213 H POC Glucose 224 H 156 H 12/07/18 07:40 Glucose POC Glucose 227 H OUTPATIENT ANTIDIABETIC REGIMEN: * Tresiba 27 units SQ qHS * Novolog sliding scale (up to 50 units/day) * A1c 7.1% on 11/20/18 ASSESSMENT: * Lauren is a 83 year diabetic female admitted for small bowel obstruction * Persistent hyperglycemia (majority of BSGs > 200 mg/dL) for the past several days. During this time patient was ordered Lantus 20 units qHS. Her Lantus dose was increased to her home dose of 27 units on 12/06 PM. I have ordered an additional 10 units of Lantus for this morning. Her home regimen is highly bolus weighted, therefore I suspect she needs more basal insulin. * Estimated total insulin needs of 70-80 units per day. Will base insulin doses on this amount. PLAN FOR INPATIENT GLYCEMIC CONTROL: * Basal insulin - increase * Lantus 10 units SQ x 1 * Continue Lantus 27 units SQ qHS * Bolus insulin - tighten carb coverage * NovoLog per scale ACHS or Q6hrs while NPO * Goal Range: Low 110 mg/dL - High 140 mg/dL * Correction Factor: 20 mg/dL/unit * Nutritional / Prandial insulin per carb ratio of 1 unit per 7 grams CHO consumed PLAN FOR DISCHARGE: * A1c of 7.1% is at goal * Patient's home regimen is highly bolus weighted (65% bolus/35% basal). * If fasting BSG at home is elevated, consider increasing Tresiba to 32 units SQ qHS. * Continue to titrate per outpatient provider.
--- NOTE | 2018-12-07 13:26 | Hospitalist Progress Note ---
Date of Service December 07, 2018 Assessment & Plan (1) Small bowel obstruction: Patient is an 83-year-old female with a history of coronary disease/CABG, atrial fibrillation on Coumadin, PE/DVT on Coumadin, Diabetes, hypertension, breast and rectal cancer status post urostomy, presenting with small bowel obstruction. SMALL BOWEL OBSTRUCTION History of colostomy for rectal cancer (+) BMs NG tube placed and removed Tolerating diet well EPISTAXIS Resolved Right nostril- site of NG tube in the setting of heparin drip for history of DVT, A fib -- Afrin BID, noseclip -- heparin discontinued --ENT consulted, fibrillar material placed on the right nostril --No recurrence Coumadin resumed with Lovenox bridge HEMATURIA Right UPJ stone, 6mm --Outpatient follow-up HYPERTENSION Stable continue PO Metoprolol ACUTE PULMONARY EDEMA On room air, not in respiratory distress Chest x-ray: Positive pulmonary congestion, possible edema BNP elevated Echocardiogram: EF 55-60%, mild LVH Lasix 20 mg IV ordered, improved, repeat CXR improved CORONARY DISEASE/CABG Denies chest pain ATRIAL FIBRILLATION ON CHRONIC COUMADIN Coumadin restarted with Lovenox bridge INR 2.2 on discharge day Recommend to Coumadin 5 mg daily and 2.5 mg daily alternating Coumadin clinic will be updated PE/DVT, on chronic Coumadin last DVT 2 years ago as per patient management of anticoagulation as noted above Diabetes type 2 A1c 7.1 Resume usual insulin regimen History of breast and rectal cancer DVT prophylaxis On Coumadin Disposition Discharge to home Follow-up with primary care physician this coming week Follow-up with Coumadin clinic this coming week Follow-up with urology clinic in 1 to 2 weeks Subjective Follow-up for small bowel obstruction,Epistaxis and hematuria Seen resting in bed, comfortable, not in distress States she feels fine overall No bleeding No abdominal pain, positive bowel movements Denies any symptoms States she is ready and would like to be discharged today Review of Systems Review of Systems: All systems reviewed & are unremarkable except as noted in HPI & below Physical Exam Physical Exam: General- oriented x 3, not in distress, speaks in sentences with no effort or accessory muscle use Eyes- anicteric Neck- no JVD Lungs- clear BS bilaterally, no crackles, no wheezing Heart- normal rate, regular rhythm; no murmurs Abdomen- normal bowel sounds, nondistended, soft, nontender Colostomy site no issues Extremities- no pretibial edema, no calf tenderness Neuro- alert, oriented x 3; no gross focal neurologic deficits Skin- warm & dry Results & Data Vital Signs (Past 12 Hours) Vital Signs Temp Pulse Resp BP Pulse Ox 12/07/18 06:48 36.6 C 63 16 135/80 96 12/07/18 03:54 36.4 C L 74 16 122/69 95 Laboratory Results Laboratory Results - last 24 hr 12/06/18 12/06/18 12/06/18 16:21 20:26 23:17 PT INR Sodium Potassium Chloride Carbon Dioxide Anion Gap BUN Creatinine Est Cr Clr Drug Dosing Est GFR ( Amer) Est GFR (Non-Af Amer) BUN/Creatinine Ratio Glucose POC Glucose 220 H 236 H 224 H Calcium 12/07/18 12/07/18 12/07/18 03:59 07:01 07:01 PT 21.3 H INR 2.2 H Sodium 137 Potassium 4.2 Chloride 102 Carbon Dioxide 29 Anion Gap 6.0 BUN 31 H Creatinine 1.34 H Est Cr Clr Drug Dosing 30.7 Est GFR ( Amer) 41.8 Est GFR (Non-Af Amer) 36.0 BUN/Creatinine Ratio 23.4 H Glucose 213 H POC Glucose 156 H Calcium 9.4 12/07/18 12/07/18 07:40 11:34 PT INR Sodium Potassium Chloride Carbon Dioxide Anion Gap BUN Creatinine Est Cr Clr Drug Dosing Est GFR ( Amer) Est GFR (Non-Af Amer) BUN/Creatinine Ratio Glucose POC Glucose 227 H 246 H Calcium
--- NOTE | 2018-12-07 13:44 | Discharge Summary ---
Date of Service December 07, 2018 Admission HPI Per Admitting Provider History obtained from patient and records. Medical history significant for CAD status post CABG, A. fib on Coumadin, history PE/DVT, hypertension, pulmonary hypertension as per records, left breast cancer status post surgery, rectal cancer status post surgery, DM 2 insulin requiring, CRI baseline creatinine 1.3, past tobacco abuse. Recent confinement April 2016 for acute left lower extremity arterial embo lism status post embolectomy. Patient was watching television last night when she felt her abdomen to be more distended than usual, achy left lower quadrant pain. Ostomy output somewhat decreased as per patient. Some nausea. No emesis. No chest pain, no S OB. No hematuria/flank pain symptoms. Patient brought to the ER for further evaluation. 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 Admission Exam Per Admitting Provider GENERAL: Slightly uncomfortable, pleasant, obese, no respiratory distress SKIN: Normal color, warm HEENT: [place] palpebral conjunctivae, no ptosis, chronic upper lip asymmetry, dry buccal mucosa NECK : Supple, short neck, no tenderness CHEST : Decreased breath sounds, no tenderness HEART : Irregular , diastolic murmur ABDOMEN: distention, ostomy bag in place, minimal left lower quadrant tenderness EXTREMITIES : Minimal LE swelling, no LE tenderness, no other conspicuous deformities noted NEUROLOGIC : Coherent, chronic upper lip asymmetry, no other gross focality Principal Diagnosis SMALL BOWEL OBSTRUCTION Discharge Exam General- oriented x 3, not in distress, speaks in sentences with no effort or accessory muscle use Eyes- anicteric Neck- no JVD Lungs- clear BS bilaterally, no crackles, no wheezing Heart- normal rate, regular rhythm; no murmurs Abdomen- normal bowel sounds, nondistended, soft, nontender Colostomy site no issues Extremities- no pretibial edema, no calf tenderness Neuro- alert, oriented x 3; no gross focal neurologic deficits Skin- warm & dry Discharge Data Allergies Allergy/AdvReac Type Severity Reaction Status Date / Time iodine Allergy Intermediate ITCHING Verified 11/23/18 22:24 lisinopril Allergy Unknown Verified 11/23/18 22:24 Sulfa (Sulfonamide Allergy Unknown ITCHING Verified 11/23/18 22:24 Antibiotics) Consultations 11/24/18 01:15 ED Decision to Admit Stat 11/24/18 03:43 Consult General Surgery Routine Consult Urology Routine 11/27/18 08:37 Consult Urology Routine 11/27/18 08:53 Consult Otolaryngology (Head and Neck) Routine 11/29/18 12:01 Consult Cardiology Routine Ordered Studies 11/23/18 22:11 CT abd pelvis IV con only Urgent CT OF THE ABDOMEN AND PELVIS WITH CONTRAST CLINICAL HISTORY: Abdominal pain. Ostomy. COMPARISON STUDY: CT of the abdomen and pelvis August 12, 2015 TECHNIQUE: Following IV administration of 93 mL of Optiray-320, axial images of the abdomen and pelvis were obtained from the lung bases to the proximal femurs. Images were reviewed in the axial, sagittal, and coronal planes. IV contrast was administered without complication. Automated exposure control was utilized for the study. A dose lowering technique was utilized adhering to the principles of ALARA. CT DOSE: 938.79 mGy.cm FINDINGS: Interlobular septal thickening within the lower lungs is noted. There is moderate cardiomegaly. No pneumatosis, free air or portal venous gas is present. The liver, spleen, right adrenal gland and pancreas are unremarkable. A left adrenal nodule is unchanged since CT of August 12, 2015. This is benign. There is no biliary ductal dilatation status post cholecystectomy. There is no pancreatic ductal dilatation. A few right renal calculi measure up to 9 mm. A 6 mm right ureteropelvic junction calculus results in moderate right hydronephrosis with adjacent infiltration. There is no left hydronephrosis. The proximal to mid small bowel is fluid-filled and moderately dilated. Transition point is likely within the pelvis. Distal small bowel is decompressed. A previous colorectal resection is noted. Ventral hernia contains a portion of the transverse colon without resultant bowel obstruction. There is no lymphadenopathy. Old compression fractures are noted. IMPRESSION: 1. Findings consistent with a moderate grade small bowel obstruction with transition point likely within the pelvis. 2. 6 mm right ureteropelvic junction calculus which results in moderate right hydronephrosis. Right-sided nephrolithiasis. 3. Mild interstitial pulmonary edema. 11/25/18 08:30 FL small bowel study Routine Hospital Course (1) Small bowel obstruction: Patient is an 83-year-old female with a history of coronary disease/CABG, atrial fibrillation on Coumadin, PE/DVT on Coumadin, Diabetes, hypertension, breast and rectal cancer status post urostomy, presenting with small bowel obstruction. SMALL BOWEL OBSTRUCTION History of colostomy for rectal cancer General surgery consulted, patient managed conservatively Small bowel obstruction resolved with bowel rest, IV fluids; NG tube placed and removed Tolerating diet well EPISTAXIS Developed while Patient was on heparin drip during admission --ENT consulted, Resolved with fibrillar material Placement on the right nostril --No recurrence PRN Afrin prescribed HEMATURIA Developed while on heparin CT abdomen and pelvis 6 mm right ureteropelvic junction calculus which results in moderate right hydronephrosis. Right-sided nephrolithiasis. Urologist Dr. Jairon Carlson was consulted Recommend outpatient follow-up HYPERTENSION Stable ACUTE PULMONARY EDEMA On room air, not in respiratory distress Chest x-ray: Positive pulmonary congestion, possible edema BNP elevated Echocardiogram: EF 55-60%, mild LVH Lasix 20 mg IV ordered, improved, repeat CXR improved CORONARY DISEASE/CABG Denies chest pain ATRIAL FIBRILLATION ON CHRONIC COUMADIN Once small bowel resolved, Coumadin restarted with Lovenox bridge INR 2.2 on discharge day Recommend to Coumadin 5 mg daily and 2.5 mg daily alternating Coumadin clinic will be updated Metoprolol reduced to 75 mg twice a day as per cardiology recommendations in light of pauses noted during admission Monitor heart rate as an outpatient PE/DVT, on chronic Coumadin last DVT 2 years ago as per patient management of anticoagulation as noted above Diabetes type 2 A1c 7.1 Resume usual insulin regimen History of breast and rectal cancer Outpatient follow-up Disposition Discharge to home Follow-up with primary care physician this coming week Follow-up with Coumadin clinic this coming week [facility] 1 to 2 weeks Plan of care discussed with patient in detail and at length All questions answered She is comfortable, understanding, agreeable with the plan of care Total Time Total Time Spent Total Time Spent (In Minutes): 50 minutes Discharge Plan Discharge Items Patient Disposition: Home - Self-Care Reason For Visit: HTN URGENCY, SBO Discharge Diagnosis: SMALL BOWEL OBSTRUCTION Condition on Discharge: Good Activity: Resume your previous activity Activity Comment: RESUME ACTIVITY GRADUALLY TOLERATED, NO HEAVY EXERTION Lifting: Wait until after follow-up appointment Exercise/Sports: Wait until after follow-up appointment Driving/Machine Use: NO DRIVING Non-emergency contact: Primary Care Provider Call non-emergency contact if: you have any medication questions, your symptoms worsen and you have a fever Follow-up/Referrals: Jairon Carlson MD [Physician] - Moe Carpenter MD [Primary Care Provider] - Diet: Carb Consistent or DM2 and Heart Healthy Addtl Attending Provider Instructions: PLEASE REVIEW YOUR NEW MEDICATION LIST AND FOLLOW INSTRUCTIONS CAREFULLY. TAKE COUMADIN 5MG TODAY, THEN 2.5MG TOMORROW, THEN 5MG ON SUNDAY, THEN 2.5MG SUNDAY, ETC. THE COUMADIN CLINIC WILL BE CALLING YOU ON SUNDAY FOR ADVICE REGARDING COUMADIN DOSE AND BLOODWORK. FOLLOW UP WITH PRIMARY CARE PHYSICIAN THIS WEEK. FOLLOW UP WITH COUMADIN CLINIC THIS WEEK. THE CLINIC WILL BE CALLING YOU ON SUNDAY FOR APPOINTMENT SCHEDULE. FOLLOW UP WITH UROLOGIST DR. JAIRON CARLSON IN 1-2 WEEKS. PLEASE CALL HIS OFFICE FOR AN APPOINTMENT. Pending Studies at Discharge: No Stand-Alone Forms: My [facility] Medications and DC Order Prescriptions: New tamsulosin 0.4 mg Capsule 0.4 mg PO DAILY 30 Days Qty: 30 RF: 2 metoprolol tartrate 25 mg Tablet 75 mg PO BID Qty: 30 RF: 2 oxymetazoline [Nasal [place] (oxymetazoline)] 0.05 % [place],Non-Aerosol 1 sprays NA BID PRN (Reason: NOSE BLEED) Qty: 30 RF: 2 docusate sodium 100 mg Capsule 100 mg PO BID 30 Days Qty: 60 RF: 0 Continued nitroglycerin [Nitrostat] 0.4 mg Tablet, Sublingual 0.4 mg sublingual UD PRN (Reason: Chest Pain) Qty: 0 RF: 0 levothyroxine 50 mcg Tablet 50 mcg PO QAM Qty: 0 RF: 0 rosuvastatin 10 mg Tablet 10 mg PO HS Qty: 0 RF: 0 cholecalciferol (vitamin D3) [Vitamin D3] 2,000 unit Capsule 2,000 unit PO QAM Qty: 0 RF: 0 Novolog U-100 Insulin aspart 100 unit/mL solution See Patient Comments SUBCUT .COMPLEX Qty: 20 RF: 11 calcitriol 0.5 mcg capsule 0.5 mcg PO QAM RF: 0 warfarin [Coumadin] 5 mg tablet 2.5 mg PO 3XWK RF: 0 timolol maleate 0.5 % drops 1 drp ophthalmic (eye) QAM RF: 0 Prolia 60 mg/mL syringe 60 mg subcut Q6M RF: 0 Tresiba U-100 Insulin 100 unit/mL solution 27 unit subcut HS RF: 0 warfarin [Coumadin] 5 mg Tablet 5 mg PO 4XWK RF: 0 digoxin 125 mcg Tablet 125 mcg PO PM RF: 0 Discontinued metoprolol tartrate 100 mg Tablet 100 mg PO BID RF: 0 Discharge Orders: Discharge Order (Routine); Ordered 12/07/18 Ordered By: Jaren Trejo Admission Data Admit Date/Time: 11/24/18 03:36 Attending Provider: Jaren Trejo Admit Provider: Rafi Frazier Primary Care Provider: Moe Carpenter Other Providers: Rafi Frazier ; Clarence Figueroa ; Gee Pollock ; Shawn Hook ; Jairon Carlson I. ; Kam Guo ; Casi Short ; Kris Ashley II ; Gogo Pires ; Scott Bradshaw ; Scott Parsons ; Jose Keyes
[2018-12-07] MEDS ORDERED: WARFARIN SOD 5 MG TAB PO SCH (16:00)
== END 2018-12-07 14:56 | disposition home or self-care (01) | DRG 388 ==
LOC: ED 21:24 → 2N 11-24 03:22 → SUATTDRO 11-24 03:36 → 2N 11-24 03:36

== ENCOUNTER 2020-07-19 13:15 | Inpatient (IN) ==
--- NOTE | 2020-07-19 14:25 | Emergency Department Note ---
Impression & Plan Weakness, Hypoglycemia, Melanotic stools, Hypokalemia ED Provider Note Provider: Joe Gardiner MD DATE OF SERVICE: 07/19/2020 CHIEF COMPLAINT: Bloody stool, weakness HISTORY OF PRESENT ILLNESS: Patient is a 85-year-old female history of atrial fibrillation on Eliquis, CAD status post CABG, diabetes, hypertension, rectal cancer status post colectomy presenting here today referred by her primary care doctor's office after noting over the past 10 days of abdominal discomfort and cramping with some blackish stools. States the abdominal cramping is improved. Denies any significant nausea or vomiting at this time and had some nausea earlier. States she took her Eliquis this morning but her doctor told her to not take more to come here today. Patient denies falling or syncope. States she was generally weak but denies significant shortness of breath or chest pain. Was hospitalized here in May for syncope. Patient denies significant red blood in the stool but states has been quite black over the past 10 days. REVIEW OF SYSTEMS: A total of 10 review of systems was obtained and negative except as stated above in the HPI. 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 NECK: Trachea midline. Supple. ENT: Mucous membranes pink and moist. LUNGS: Airway patent. No retractions not tachypneic. HEART: Regular rate and rhythm. ABDOMEN: Soft and non-tender, without guarding or rebound with left lower quadrant ostomy in place. Rigo melanotic Hemoccult positive stools present in the ostomy. No bright red blood. SKIN: Acyanotic, warm, dry slightly pale EXTREMITIES: Without swelling, tenderness or deformity except for mild bilateral 2+ lower extremity edema. NEUROLOGICAL: No focal deficits. No aphasia. No facial droop or slurred speech. EK bpm atrial fibrillation with right bundle branch block. No acute ST segment elevation is noted with anterior T wave inversions. QTC is 562. Compared to previous May 10 of this year slightly increased heart rate with slightly more prominent anterior T wave inversions. CONTINUOUS CARDIAC MONITORING: was ordered and showed a heart rate of 80s to 100s bpm in atrial fibrillation Patient's laboratory studies and imaging reviewed. Differential includes Diverticulosis, AVM, coagulopathy, colitis, inflammatory bowel disease, malignancy, Lynette-Carvalho tear, esophagitis, peptic ulcer disease, variceal bleed, gastritis, epistaxis, fissure, hemorrhoids, as well as other pathologies. IMPRESSION/MEDICAL DECISION MAKING: Patient with extensive medical history currently anticoagulant Eliquis which he took this morning stating 10 days of some abdominal cramping and loose stools with some black quality to them. States her doctor noticed her to be a bit pale and she reports weakness when she seen in the office by him today. Denies significant abdominal pain or tenderness today. No nausea reported today but recently and states it has caused her to eat and drink less. Denies chest pain or shortness of breath but due to concerns given her history for possible GI bleed. Patient not on aspirin. Basic blood work was obtained including type and screen. CT the abdomen pelvis without contrast given her history was obtained. Does not sound that consistent with C. difficile colitis. Blood work today without significant leukocytosis and no anemia. Blood work does show some hypokalemia as well as some mildly elevated BUN and creatinine compared to baseline. Glucose was notably low. Given some orange juice here. Blood sugar improved. Some hypercalcemia is noted today. No troponin elevation and EKG shows atrial fibrillation consistent with her history however of prolonged QTC. No significant evidence for pancreatitis or transaminitis based on lab work. Negative influenza and Covid testing here. Chest x-ray without acute finding. CT the abdomen pelvis was completed without contrast given her renal dysfunction look for possible intra-abdominal issues given her history of surgeries as well as the melanotic ostomy output. Radiology reports question some right hydronephrosis but no other significant acute findings were noted. Patient was also given a dose of IV Protonix. While the patient does not appear hemodynamically unstable here or significantly anemic, does appear to have some electrolyte abnormalities and renal dysfunction. IV potassium supplementation was given. Given her weakness along with these and age and comorbidities feel that further observation here in the hospital be reasonable. The patient was in agreement. Hospitalist was contacted. DIAGNOSIS: Weakness, melanotic stools in ostomy, hypokalemia, hyperglycemia DISPOSITION: Hospitalist will evaluate Patient was agreeable with this plan. Past Med/Surg History Medical History (Updated 07/19/20 @ 17:46 by Kandi Greene PA-C) Atrial fibrillation paroxysmal CAD (coronary artery disease) s/p CABG x3 (2003) Diabetes mellitus, type 2 Embolism and thrombosis of arteries of lower extremity 2017/LLE embolectomy/patch angioplasty History of breast cancer History of upper gastrointestinal bleeding duodenal ulcer (2013) Hydronephrosis Hypercalcemia Hyperparathyroidism Hypertensive urgency Hypothyroidism Kidney stones Mitral stenosis borderline to mild per 11/2018 ECHO Osteoporosis Partial bowel obstruction 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 (2015), s/p chemo/current colostomy bag (lifelong) Small bowel obstruction resolved with NGT/no surgical intervention needed Vitamin D deficiency Surgical History H/O colostomy History of embolectomy LLE embolectomy/patch angioplasty (2016) Hx of cataract surgery right and left Hx of cystoscopy Hx of tonsillectomy Status post cardiac catheterization 2016 Status post colostomy Status post coronary artery bypass grafting 2003 Status post partial colectomy Status post partial mastectomy left lumpectomy Family History Other Diabetes Heart disease Social History Smoking Status: Former smoker Years Smoked: 49; Second Hand Exposure: No; Hx Alcohol Use: No Hx Substance Use: No Preferred Language: Swedish 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 Ability: Effective 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 Beliefs That Will Affect Care: None Current Living Situation: Family Feels Safe at Home: Yes Assistive Devices: None Allergies Allergies Allergy/AdvReac Type Severity Reaction Status Date / Time iodine Allergy Intermediate Itching Verified 07/19/20 16:22 lisinopril Allergy Unknown Unknown Verified 07/19/20 16:22 ondansetron Allergy Unknown Unknown Verified 07/19/20 16:22 Sulfa (Sulfonamide Allergy Unknown Itching Verified 07/19/20 16:22 Antibiotics) Home Meds Home Medications Medication Instructions Recorded Confirmed rosuvastatin 10 mg PO HS #0 03/14/16 07/19/20 timolol maleate 1 drp OPB QAM 11/23/18 07/19/20 metoprolol tartrate 25 mg tablet 75 mg PO BID tab 11/19/19 07/19/20 apixaban 2.5 mg PO BID 07/19/20 07/19/20 Previous Rx's Medication Instructions Recorded denosumab 60 mg/mL subcutaneous 60 mg SQ .[id number] #1 ml 03/31/20 syringe levothyroxine 50 mcg tablet 50 mcg PO QAM 90 Days #90 tab 03/31/20 calcitriol 0.25 mcg capsule 0.25 mcg PO DAILY #90 cap 06/08/20 chlorthalidone 25 mg tablet 12.5 mg PO DAILY #45 tab 06/08/20 Tresiba U-100 Insulin 100 unit/mL 18 unit SQ HS #10 ml NS 06/15/20 subcutaneous solution insulin aspart U-100 100 unit/mL See Rx Instructions SUBCUT 06/15/20 subcutaneous solution .COMPLEX #20 ml Results & Data (ED) Vital Signs Vital Signs - 24 hr 07/19/20 13:20 07/19/20 14:34 07/19/20 14:45 Temperature 36.8 C Temperature Source Oral Pulse Rate 93 H 96 H 101 H Pulse Rate from SpO2 Sensor Pulse Rhythm Regular Respiratory Rate 20 22 24 Respiratory Effort / Characteristics Non-Labored Spontaneous Respiratory Depth Normal Respiratory Pattern Regular Blood Pressure 107/65 Blood Pressure Mean 79 Pulse Oximetry 95 95 Oxygen Delivery Method Room Air Room Air Sepsis Recent Fever Within 48 Hours No Sepsis New/Unexplained Change in Mental Status No Sepsis Action Taken by Nursing No Action Required 07/19/20 14:50 07/19/20 15:00 07/19/20 15:15 Temperature Temperature Source Pulse Rate 90 86 81 Pulse Rate from SpO2 Sensor 91 H 89 84 Pulse Rhythm Respiratory Rate 19 22 20 Respiratory Effort / Characteristics Respiratory Depth Respiratory Pattern Blood Pressure 116/72 128/64 117/62 Blood Pressure Mean 86 85 80 Pulse Oximetry 96 96 94 Oxygen Delivery Method Sepsis Recent Fever Within 48 Hours Sepsis New/Unexplained Change in Mental Status Sepsis Action Taken by Nursing 07/19/20 15:30 07/19/20 15:31 07/19/20 16:01 Temperature Temperature Source Pulse Rate 85 85 93 H Pulse Rate from SpO2 Sensor 85 91 H 98 H Pulse Rhythm Respiratory Rate 24 18 22 Respiratory Effort / Characteristics Respiratory Depth Respiratory Pattern Blood Pressure 112/82 116/75 Blood Pressure Mean 92 88 Pulse Oximetry 95 95 97 Oxygen Delivery Method Sepsis Recent Fever Within 48 Hours Sepsis New/Unexplained Change in Mental Status Sepsis Action Taken by Nursing 07/19/20 16:02 07/19/20 16:15 07/19/20 16:16 Temperature Temperature Source Pulse Rate 107 H 96 H 103 H Pulse Rate from SpO2 Sensor 107 H 99 H 103 H Pulse Rhythm Respiratory Rate 23 22 22 Respiratory Effort / Characteristics Respiratory Depth Respiratory Pattern Blood Pressure 135/73 Blood Pressure Mean 93 Pulse Oximetry 98 97 94 Oxygen Delivery Method Sepsis Recent Fever Within 48 Hours Sepsis New/Unexplained Change in Mental Status Sepsis Action Taken by Nursing 07/19/20 16:30 07/19/20 16:31 07/19/20 16:45 Temperature Temperature Source Pulse Rate 97 H 125 H 113 H Pulse Rate from SpO2 Sensor 100 H 114 H 148 H Pulse Rhythm Respiratory Rate 23 27 H 18 Respiratory Effort / Characteristics Respiratory Depth Respiratory Pattern Blood Pressure 134/93 119/89 Blood Pressure Mean 106 99 Pulse Oximetry 96 93 83 L Oxygen Delivery Method Sepsis Recent Fever Within 48 Hours Sepsis New/Unexplained Change in Mental Status Sepsis Action Taken by Nursing 07/19/20 17:00 07/19/20 17:01 07/19/20 17:15 Temperature Temperature Source Pulse Rate 103 H 98 H 127 H Pulse Rate from SpO2 Sensor 102 H 101 H 89 Pulse Rhythm Respiratory Rate 21 21 15 Respiratory Effort / Characteristics Respiratory Depth Respiratory Pattern Blood Pressure 126/83 122/81 Blood Pressure Mean 97 94 Pulse Oximetry 98 93 92 Oxygen Delivery Method Sepsis Recent Fever Within 48 Hours Sepsis New/Unexplained Change in Mental Status Sepsis Action Taken by Nursing 07/19/20 17:31 07/19/20 17:45 07/19/20 18:16 Temperature Temperature Source Pulse Rate 99 H 90 108 H Pulse Rate from SpO2 Sensor 105 H 94 H Pulse Rhythm Respiratory Rate 17 20 20 Respiratory Effort / Characteristics Respiratory Depth Respiratory Pattern Blood Pressure 131/96 133/93 129/77 Blood Pressure Mean 107 106 94 Pulse Oximetry 98 93 94 Oxygen Delivery Method Sepsis Recent Fever Within 48 Hours Sepsis New/Unexplained Change in Mental Status Sepsis Action Taken by Nursing Laboratory Data Result diagrams: 07/19/20 14:37 07/19/20 14:37 Lab Results 07/19/20 07/19/20 07/19/20 Range/Units 14:37 14:37 14:37 WBC 7.69 (4.8-10.8) K/uL RBC 5.14 (4.2-5.4) M/uL Hgb 15.7 (12.0-16.0) g/dL Hct 45.9 (37-47) % MCV 89.3 (80-100) fL MCH 30.5 (25-34) pg MCHC 34.2 (32-36) g/dL RDW Std Deviation 47.8 H (36.4-46.3) fL RDW Coeff of Kei 14.7 H (11.5-14.5) % Plt Count 376 (130-400) K/uL MPV 10.0 (7.4-10.4) fL Immature Gran % (Auto) 0.3 % Neut % (Auto) 68.4 % Lymph % (Auto) 22.5 % [place] % (Auto) 8.3 % Eos % (Auto) 0.4 % Baso % (Auto) 0.1 % Neut # (Auto) 5.26 (1.4-6.5) K/uL Lymph # (Auto) 1.73 (1.2-3.4) K/uL [place] # (Auto) 0.64 H (0.11-0.59) K/uL Eos # (Auto) 0.03 (0-0.5) K/uL Baso # (Auto) 0.01 (0-0.2) K/uL Immature Gran # (Auto) 0.02 (0.00-0.02) K/uL PT 11.2 (9.0-12.0) Seconds INR 1.1 (0.9-1.1) APTT 21.9 (21.0-31.0) Seconds PTT Ratio 0.8 Sodium (136-145) mmol/L Potassium (3.5-5.1) mmol/L Chloride (98-107) mmol/L Carbon Dioxide (21-32) mmol/L Anion Gap (3-11) BUN (7-18) mg/dl Creatinine (0.6-1.2) mg/dl Est Cr Clr Drug Dosing ml/min Est GFR ( Amer) Est GFR (Non-Af Amer) BUN/Creatinine Ratio (10-20) Glucose (70-99) mg/dl POC Glucose (70-99) mg/dl Calcium (8.5-10.1) mg/dl Magnesium (1.8-2.4) mg/dl Total Bilirubin (0.2-1) mg/dl AST (15-37) U/L ALT (12-78) U/L Alkaline Phosphatase (45-117) U/L Troponin I (0-0.045) ng/ml Total Protein (6.4-8.2) gm/dl Albumin (3.4-5.0) gm/dl Globulin (2.5-4.0) gm/dl Albumin/Globulin Ratio (0.9-2) Lipase (73-393) U/L POC Stool Occult Blood COVID-19 Eval Order SARS-CoV-2 (PCR) (Negative) Influenza Type A (PCR) (Neg) Influenza Type B (PCR) (Neg) RSV (RT-PCR) (Neg) Blood Type A Positive Antibody Screen NEGATIVE 07/19/20 07/19/20 07/19/20 Range/Units 14:37 14:46 14:46 WBC (4.8-10.8) K/uL RBC (4.2-5.4) M/uL Hgb (12.0-16.0) g/dL Hct (37-47) % MCV (80-100) fL MCH (25-34) pg MCHC (32-36) g/dL RDW Std Deviation (36.4-46.3) fL RDW Coeff of Kei (11.5-14.5) % Plt Count (130-400) K/uL MPV (7.4-10.4) fL Immature Gran % (Auto) % Neut % (Auto) % Lymph % (Auto) % [place] % (Auto) % Eos % (Auto) % Baso % (Auto) % Neut # (Auto) (1.4-6.5) K/uL Lymph # (Auto) (1.2-3.4) K/uL [place] # (Auto) (0.11-0.59) K/uL Eos # (Auto) (0-0.5) K/uL Baso # (Auto) (0-0.2) K/uL Immature Gran # (Auto) (0.00-0.02) K/uL PT (9.0-12.0) Seconds INR (0.9-1.1) APTT (21.0-31.0) Seconds PTT Ratio Sodium 136 (136-145) mmol/L Potassium 3.1 L (3.5-5.1) mmol/L Chloride 97 L (98-107) mmol/L Carbon Dioxide 32 (21-32) mmol/L Anion Gap 7.0 (3-11) BUN 43 H (7-18) mg/dl Creatinine 2.13 H (0.6-1.2) mg/dl Est Cr Clr Drug Dosing 17.6 ml/min Est GFR ( Amer) 23.5 Est GFR (Non-Af Amer) 20.3 BUN/Creatinine Ratio 20.3 H (10-20) Glucose 49 L* (70-99) mg/dl POC Glucose (70-99) mg/dl Calcium 10.4 H (8.5-10.1) mg/dl Magnesium 2.6 H (1.8-2.4) mg/dl Total Bilirubin 0.4 (0.2-1) mg/dl AST 28 (15-37) U/L ALT 25 (12-78) U/L Alkaline Phosphatase 124 H (45-117) U/L Troponin I < 0.015 (0-0.045) ng/ml Total Protein 9.2 H (6.4-8.2) gm/dl Albumin 3.3 L (3.4-5.0) gm/dl Globulin 5.9 H (2.5-4.0) gm/dl Albumin/Globulin Ratio 0.6 L (0.9-2) Lipase 135 (73-393) U/L POC Stool Occult Blood COVID-19 Eval Order CovFluRsv at [facility] SARS-CoV-2 (PCR) NEGATIVE (Negative) Influenza Type A (PCR) Negative (Neg) Influenza Type B (PCR) Negative (Neg) RSV (RT-PCR) Negative (Neg) Blood Type Antibody Screen 07/19/20 07/19/20 07/19/20 Range/Units 16:09 16:35 17:58 WBC (4.8-10.8) K/uL RBC (4.2-5.4) M/uL Hgb (12.0-16.0) g/dL Hct (37-47) % MCV (80-100) fL MCH (25-34) pg MCHC (32-36) g/dL RDW Std Deviation (36.4-46.3) fL RDW Coeff of Kei (11.5-14.5) % Plt Count (130-400) K/uL MPV (7.4-10.4) fL Immature Gran % (Auto) % Neut % (Auto) % Lymph % (Auto) % [place] % (Auto) % Eos % (Auto) % Baso % (Auto) % Neut # (Auto) (1.4-6.5) K/uL Lymph # (Auto) (1.2-3.4) K/uL [place] # (Auto) (0.11-0.59) K/uL Eos # (Auto) (0-0.5) K/uL Baso # (Auto) (0-0.2) K/uL Immature Gran # (Auto) (0.00-0.02) K/uL PT (9.0-12.0) Seconds INR (0.9-1.1) APTT (21.0-31.0) Seconds PTT Ratio Sodium (136-145) mmol/L Potassium (3.5-5.1) mmol/L Chloride (98-107) mmol/L Carbon Dioxide (21-32) mmol/L Anion Gap (3-11) BUN (7-18) mg/dl Creatinine (0.6-1.2) mg/dl Est Cr Clr Drug Dosing ml/min Est GFR ( Amer) Est GFR (Non-Af Amer) BUN/Creatinine Ratio (10-20) Glucose (70-99) mg/dl POC Glucose 103 H (70-99) mg/dl Calcium (8.5-10.1) mg/dl Magnesium (1.8-2.4) mg/dl Total Bilirubin (0.2-1) mg/dl AST (15-37) U/L ALT (12-78) U/L Alkaline Phosphatase (45-117) U/L Troponin I (0-0.045) ng/ml Total Protein (6.4-8.2) gm/dl Albumin (3.4-5.0) gm/dl Globulin (2.5-4.0) gm/dl Albumin/Globulin Ratio (0.9-2) Lipase (73-393) U/L POC Stool Occult Blood Cancelled Positive A COVID-19 Eval Order SARS-CoV-2 (PCR) (Negative) Influenza Type A (PCR) (Neg) Influenza Type B (PCR) (Neg) RSV (RT-PCR) (Neg) Blood Type Antibody Screen Administered Medications Discontinued Medications Sodium Chloride (Nss) 500 mls @ 999 mls/hr IV .Q31M ONE Stop: 07/19/20 16:34 Last Infusion: 07/19/20 17:45 Dose: 0 mls/hr Documented by: [id number] Admin: 07/19/20 16:10 Dose: 999 mls/hr Documented by: [id number] Potassium Chloride (K Ariel / Wtr) 10 meq in 100 mls @ 100 mls/hr IV ONE ONE Stop: 07/19/20 17:03 Last Infusion: 07/19/20 17:10 Dose: 0 mls/hr Documented by: [id number] Admin: 07/19/20 16:10 Dose: 100 mls/hr Documented by: [id number] Pantoprazole Sodium 80 mg/ (Dextrose) 100 mls @ 400 mls/hr IV ONE STA Stop: 07/19/20 16:37 Last Admin: 07/19/20 18:20 Dose: 400 mls/hr Documented by: [id number] Metoprolol Tartrate (Metoprolol Tartrate 25 Mg Tab) 75 mg PO NOW STA Stop: 07/19/20 17:29 Last Admin: 07/19/20 18:19 Dose: 75 mg Documented by: [id number] Potassium Chloride (Potassium Chloride Crtab 20 Meq Tabcr) 40 meq PO NOW STA Stop: 07/19/20 17:28 Last Admin: 07/19/20 18:25 Dose: Not Given Documented by: [id number] Imaging Data Radiologist's Impression: Abdomen/Pelvis CT 07/19/20 14:05 CT OF THE ABDOMEN AND PELVIS WITHOUT CONTRAST CLINICAL HISTORY: Colostomy bleeding. COMPARISON STUDY: CT of the abdomen and pelvis January 21, 2019. TECHNIQUE: Axial images of the abdomen and pelvis were obtained without IV contrast. Images were reviewed in the axial, sagittal, and coronal planes. Automated exposure control was utilized for the study. A dose lowering technique was utilized adhering to the principles of ALARA. FINDINGS: Moderate cardiomegaly is noted. There is mild groundglass opacity within the right middle lobe. No pneumatosis, free air or portal venous gas is present. Evaluation of the abdomen and pelvis is suboptimal on this unenhanced exam. The liver, spleen and pancreas are unremarkable on this unenhanced exam. Bilateral adrenal nodules are unchanged. These are likely benign. There is no biliary or pancreatic ductal dilatation status post cholecystectomy. There is no left hydronephrosis. Moderate right hydroureteronephrosis is noted. No ureteral calculi are identified. Apparent caliber change of the distal right ureter is noted which is decompressed. Postoperative findings at the level of the distal colon and rectum are noted. There is a descending colostomy. There is no evidence for a bowel obstruction. No bowel wall thickening is identified on this unenhanced exam. Sensitivity for detection of mucosal lesions is diminished on this unenhanced exam but none are identified. Ventral hernia contains a portion of the transverse colon. There is no lymphadenopathy. There is no ascites. Multiple lower thoracic and lumbar spine compression fractures are present. IMPRESSION: 1. Moderate right hydroureteronephrosis of uncertain etiology. No ureteral calculi identified. Caliber change of the distal right ureter raises the possibility of a stricture. 2. Postoperative findings within the distal colon and rectum with descending colostomy with parastomal hernia which contains a portion of the transverse colon. No evidence for a bowel obstruction. 3. Mild groundglass opacities within the right middle lobe which could reflect an infectious process or atelectasis. ACT 112: Negative or not required by law. Electronically signed by: Robin Harkins M.D. 07/19/2020 4:21 PM Chest X-Ray 07/19/20 14:05 XR chest 1V portable HISTORY: 85 years-old Female weak acute weakness COMPARISON: Chest radiograph 05/10/2020 TECHNIQUE: Portable AP view of the chest FINDINGS: Cardiac silhouette is enlarged. Prior median sternotomy with cardiac valvular prosthesis. Suggested pulmonary artery hypertension. No pneumothorax or large pleural effusion. Chronic interstitial coarsening with mild bibasilar densities suggestive of atelectasis/scarring. Degenerative changes of the shoulders and spine. Healed remote right-sided rib fractures. IMPRESSION: Cardiomegaly without acute process. ACT 112: Negative or not required by law. The above report was generated using voice recognition software. It may contain grammatical, syntax or spelling errors. Electronically signed by: Roshan Delong M.D. 07/19/2020 3:21 PM Discharge Plan Visit Data Chief Complaint: Rectal Bleed Stated Complaint: REFERRED BY DR. CARPENTER ED Provider: Joe Gardiner Discharge Problem: Weakness, Hypoglycemia, Melanotic stools, Hypokalemia Patient Disposition: Being Evaluated by Hospitalist Forms Stand Alone Forms: My [facility] Prescriptions Prescriptions: No Action rosuvastatin 10 mg Tablet 10 mg PO HS Qty: 0 RF: 0 levothyroxine 50 mcg tablet 50 mcg PO QAM 90 Days Qty: 90 RF: 1 Prolia 60 mg/mL syringe 60 mg SQ [id number] Qty: 1 RF: 1 Novolog U-100 Insulin aspart 100 unit/mL solution See Rx Instructions SUBCUT .COMPLEX Qty: 20 RF: 11 Tresiba U-100 Insulin 100 unit/mL solution 18 unit SQ HS Qty: 10 RF: 11 calcitriol 0.25 mcg capsule 0.25 mcg PO DAILY Qty: 90 RF: 3 chlorthalidone 25 mg tablet 12.5 mg PO DAILY Qty: 45 RF: 3 metoprolol tartrate 25 mg tablet 75 mg PO BID RF: 0 timolol maleate 0.5 % drops 1 drp OPB QAM RF: 0 apixaban 2.5 mg Tablet 2.5 mg PO BID RF: 0 Referrals Referrals: Moe Carpenter MD [Primary Care Provider] -
[2020-07-19 14:51] LABS: Basophils # (auto) 0.01 K/uL (0-0.2); Basophils % (auto) 0.1 %; Eosinophils # (auto) 0.03 K/uL (0-0.5); Eosinophils % (auto) 0.4 %; Hematocrit (blood only) 45.9 % (37-47); Hemoglobin 15.7 g/dL (12.0-16.0); Immature Granulocytes # (auto) 0.02 K/uL (0.00-0.02); Immature Granulocytes % (auto) 0.3 %; Lymphocytes # (auto) 1.73 K/uL (1.2-3.4); Lymphocytes % (auto) 22.5 %; Mean Corpuscular Hemoglobin 30.5 pg (25-34); Mean Corpuscular Hgb Conc 34.2 g/dL (32-36); Mean Corpuscular Volume 89.3 fL (80-100); Monocytes # (auto) 0.64 K/uL (0.11-0.59); Monocytes % (auto) 8.3 %; Neutrophils # (auto) 5.26 K/uL (1.4-6.5); Neutrophils % (auto) 68.4 %; Platelet Count 376 K/uL (130-400); RDW Coefficient of Variation 14.7 % (11.5-14.5); RDW Standard Deviation 47.8 fL (36.4-46.3); Red Blood Count 5.14 M/uL (4.2-5.4); White Blood Count 7.69 K/uL (4.8-10.8)
[2020-07-19 15:04] LABS: INR 1.1 (0.9-1.1); Partial Thromboplastin Ratio 0.8; Partial Thromboplastin Time 21.9 Seconds (21.0-31.0); Prothrombin Time 11.2 Seconds (9.0-12.0)
--- NOTE | 2020-07-19 15:22 | XRay Report ---
XR chest 1V portable HISTORY: 85 years-old Female weak acute weakness COMPARISON: Chest radiograph 05/10/2020 TECHNIQUE: Portable AP view of the chest FINDINGS: Cardiac silhouette is enlarged. Prior median sternotomy with cardiac valvular prosthesis. Suggested p ulmonary artery hypertension. No pneumothorax or large pleural effusion. Chronic interstitial coarsen ing with mild bibasilar densities suggestive of atelectasis/scarring. Degenerative changes of the dylon ulders and spine. Healed remote right-sided rib fractures. IMPRESSION: Cardiomegaly without acute process. ACT 112: Negative or not required by law. The above report was generated using voice recognition software. It may contain grammatical, syntax o r spelling errors. Electronically signed by: Roshan Delong M.D. 07/19/2020 3:21 PM
[2020-07-19 15:29] LABS: Alanine Aminotransferase 25 U/L (12-78); Albumin Globulin Ratio 0.6 (0.9-2); Albumin Level 3.3 gm/dl (3.4-5.0); Alkaline Phosphatase 124 U/L (45-117); Aspartate Aminotransferase 28 U/L (15-37); BUN Creatinine Ratio 20.3 (10-20); Bilirubin,Total 0.4 mg/dl (0.2-1); Blood Urea Nitrogen 43 mg/dl (7-18); Calcium 10.4 mg/dl (8.5-10.1); Carbon Dioxide 32 mmol/L (21-32); Chloride 97 mmol/L (98-107); Creatinine Clr Calc Pharmacy 17.6 ml/min; Est GFR (African American) 23.5; Est GFR (Non-African American) 20.3; Globulin 5.9 gm/dl (2.5-4.0); Glucose 49 mg/dl (70-99); Lipase 135 U/L (73-393); Potassium 3.1 mmol/L (3.5-5.1); Sodium 136 mmol/L (136-145); Total Protein 9.2 gm/dl (6.4-8.2); Troponin I < 0.015 ng/ml (0-0.045)
[2020-07-19 15:58] LABS: Influenza A virus by PCR Negative (Neg); Influenza B virus by PCR Negative (Neg); RSV by PCR Negative (Neg); SARS CoV2 RNA(COVID-19) InHosp NEGATIVE (Negative)
[2020-07-19] MEDS ORDERED: SODIUM CHLORIDE 0.9% 500 ML IV ONE (16:04)
[2020-07-19] MEDS ORDERED: POTASSIUM CHLORIDE / WTR 10 MEQ/100 ML PLCT IV ONE ×2 (16:04→18:34)
--- NOTE | 2020-07-19 16:22 | CT Scan Report ---
CT OF THE ABDOMEN AND PELVIS WITHOUT CONTRAST CLINICAL HISTORY: Colostomy bleeding. COMPARISON STUDY: CT of the abdomen and pelvis January 21, 2019. TECHNIQUE: Axial images of the abdomen and pelvis were obtained without IV contrast. Images were revi ewed in the axial, sagittal, and coronal planes. Automated exposure control was utilized for the cristela dy. A dose lowering technique was utilized adhering to the principles of ALARA. FINDINGS: Moderate cardiomegaly is noted. There is mild groundglass opacity within the right middle l obe. No pneumatosis, free air or portal venous gas is present. Evaluation of the abdomen and pelvis i s suboptimal on this unenhanced exam. The liver, spleen and pancreas are unremarkable on this unenhan dagmar exam. Bilateral adrenal nodules are unchanged. These are likely benign. There is no biliary or pa ncreatic ductal dilatation status post cholecystectomy. There is no left hydronephrosis. Moderate rig ht hydroureteronephrosis is noted. No ureteral calculi are identified. Apparent caliber change of the distal right ureter is noted which is decompressed. Postoperative findings at the level of the dista l colon and rectum are noted. There is a descending colostomy. There is no evidence for a bowel obstr uction. No bowel wall thickening is identified on this unenhanced exam. Sensitivity for detection of mucosal lesions is diminished on this unenhanced exam but none are identified. Ventral hernia contain s a portion of the transverse colon. There is no lymphadenopathy. There is no ascites. Multiple lower thoracic and lumbar spine compression fractures are present. IMPRESSION: 1. Moderate right hydroureteronephrosis of uncertain etiology. No ureteral calculi identified. Calibe r change of the distal right ureter raises the possibility of a stricture. 2. Postoperative findings within the distal colon and rectum with descending colostomy with parastoma l hernia which contains a portion of the transverse colon. No evidence for a bowel obstruction. 3. Mild groundglass opacities within the right middle lobe which could reflect an infectious process or atelectasis. ACT 112: Negative or not required by law. Electronically signed by: Robin Harkins M.D. 07/19/2020 4:21 PM
[2020-07-19] MEDS ORDERED: PANTOprazole 80 MG in DEXTROSE 5% 100 ML IV STA (16:23)
[2020-07-19] MEDS ORDERED: POTASSIUM CHLORIDE CRTAB 20 MEQ TABCR PO STA (17:27)
[2020-07-19] MEDS ORDERED: METOPROLOL TARTRATE 25 MG TAB PO STA (17:28)
--- NOTE | 2020-07-19 17:42 | History & Physical Report ---
Date of Service July 19, 2020 Assessment & Plan (1) Weakness: (2) Melanotic stools: This is a 85-year-old female who has significant past medical history of CAD status post CABG x3 in 2003, chronic atrial fibrillation anticoagulated on Eliquis, T2DM, CKD stage III baseline creatinine 1.5, history of rectal CA status post colectomy with end colostomy 3 years prior, history of embolism and thrombosis of arteries of lower extremity in 2017 status post left lower extremity embolectomy/patch and angioplasty, HTN, history of breast cancer, history of tobacco abuse who presents to ED secondary to weakness and black stool x10 days. Pt reports melanotic stool x 10 days and weakness H&H 15.7 and 25.9, likely volume contracted Would expect hemoglobin to be lower if GI loss for 10 days Per ED provider she was heme positive in ED, grossly black, no brbpr Started on IV protonix bolus in ED admit to PCU PPI gtt consult GI - hx of PUD in past clear liquid diet, NPO after might type and cross - consent obtained by Dr. Keyes gentle IV hydration 75c/hr + 20meq KCL (3) Hypokalemia: received 10meq IV in ED give 40meq po x 1 now give 20 meq po x 1 @ 2200 repeat in a.m. (4) Atrial fibrillation: Chronic atrial fibrillation, currently RVR Likely in setting of dehydration underlying illness Give Metoprolol tartrate 75 mg tartrate x1 now (home dose), as needed IV Lopressor Hold Eliquis secondary to concern for GI bleed (5) CAD (coronary artery disease): hx of cabg x 3 continue metoprolol, crestor no chest pain/sob (6) Hypercalcemia: hyperparathyroidism follows Dr. Booker, corrected ca 11.1 pt is not on ca or vit D supplements She is on calcitriol continue with IVF, possibly in setting of dehydration repeat in a.m. resume chlorthalidone when able (7) Diabetes mellitus, type 2: Insulin-dependent, well controlled Last A1c 6.2 on 05/10/2020 Continue Lantus/NovoLog per protocol, will reduce Lantus in setting of hypoglycemia in ED with BSG's in 40s Patient was asymptomatic and BSG improved in the 100s with administration of juice (8) Acute kidney injury superimposed on chronic kidney disease: (9) Hydronephrosis: Baseline creatinine 1.5 BUN/creatinine 43 and 2.13 today Possibly prerenal in setting of poor p.o. intake, but also concern for obstructive process given findings of moderate hydroureteronephrosis and possible stricture Hold nephrotoxic agents -chlorthalidone Gentle hydration Consult urology -patient with prior history of nephrolithiasis requiring stent placement (10) Abnormal CT of the abdomen: History of rectal cancer status post resection with end colostomy CT abdomen pelvis reveals parastomal hernia with transverse colon, no bowel obstruction Patient presenting with nausea and melanotic stools for 10 days Consult general surgery, appreciate their input (11) DVT prophylaxis: SCD/teds Hold Eliquis in setting of melenic stools Dispo: PCU Full code PCP: Dr. Carpenter Patient was seen and examined in collaboration with Dr. Keyes, please see addendum History of Present Illness Chief Complaint: Weakness and black stools x10 days. Primary Care Provider: Moe Carpenter MD This is a 85-year-old female who has significant past medical history of CAD status post CABG x3 in 2003, chronic atrial fibrillation anticoagulated on Eliquis, T2DM, CKD stage III baseline creatinine 1.5, history of rectal CA status post colectomy with end colostomy 3 years prior, history of embolism and thrombosis of arteries of lower extremity in 2017 status post left lower extremity embolectomy/patch and angioplasty, HTN, history of breast cancer, history of tobacco abuse who presents to ED secondary to weakness and black stool x10 days. She elicits over the last 10 days to becoming increasingly more weak and noticing frequent loose black stool in her colostomy. She also has nausea, decreased appetite and overall decreased intake. She is fully vaccinated for the coronavirus. She denies any recent illness. She denies any fever, chills, sweats, lightheadedness, dizziness, chest pain, shortness of breath, RAINEY, palpitations, abdominal pain, dysuria and hematochezia. Starting today she noticed decreased ability to urinate but also states, "I have not been eating much." She denies any dysuria or hematuria. She describes her stools as being dark black. She does have history of In ED patient was hemodynamically stable, mildly tachycardic during my evaluation with heart rates in the low 100s. Her H&H was stable at 15.7 and 45.9, BUN 43, creatinine 2.13, K3.1, chloride 97, BUN 43, creatinine 2.13, corrected calcium 11.1. chest x-ray notable for cardiomegaly without acute process. 1. Moderate right hydroureteronephrosis of uncertain etiology. No ureteral calculi identified. Caliber change of the distal right ureter raises the possibility of a stricture. 2. Postoperative findings within the distal colon and rectum with descending colostomy with parastomal hernia which contains a portion of the transverse colon. No evidence for a bowel obstruction. In ED she received Protonix bolus, 10meq IV KCl and IVF. Allergies Allergy/AdvReac Type Severity Reaction Status Date / Time iodine Allergy Intermediate Itching Verified 07/19/20 16:22 lisinopril Allergy Unknown Unknown Verified 07/19/20 16:22 ondansetron Allergy Unknown Unknown Verified 07/19/20 16:22 Sulfa (Sulfonamide Allergy Unknown Itching Verified 07/19/20 16:22 Antibiotics) Home Medications Medication Instructions Recorded Confirmed Type rosuvastatin 10 mg PO HS #0 03/14/16 07/19/20 History timolol maleate 1 drp OPB QAM 11/23/18 07/19/20 History metoprolol tartrate 25 mg tablet 75 mg PO BID tab 11/19/19 07/19/20 History denosumab 60 mg/mL subcutaneous 60 mg SQ .[id number] #1 ml 03/31/20 07/19/20 Rx syringe levothyroxine 50 mcg tablet 50 mcg PO QAM 90 Days #90 tab 03/31/20 07/19/20 Rx calcitriol 0.25 mcg capsule 0.25 mcg PO DAILY #90 cap 06/08/20 07/19/20 Rx chlorthalidone 25 mg tablet 12.5 mg PO DAILY #45 tab 06/08/20 07/19/20 Rx Tresiba U-100 Insulin 100 unit/mL 18 unit SQ HS #10 ml NS 06/15/20 07/19/20 Rx subcutaneous solution insulin aspart U-100 100 unit/mL See Rx Instructions SUBCUT 06/15/20 07/19/20 Rx subcutaneous solution .COMPLEX #20 ml apixaban 2.5 mg PO BID 07/19/20 07/19/20 History Past Med/Surg History Medical History (Updated 07/19/20 @ 17:46 by Kandi Greene PA-C) Atrial fibrillation paroxysmal CAD (coronary artery disease) s/p CABG x3 (2003) Diabetes mellitus, type 2 Embolism and thrombosis of arteries of lower extremity 2017/LLE embolectomy/patch angioplasty History of breast cancer History of upper gastrointestinal bleeding duodenal ulcer (2013) Hydronephrosis Hypercalcemia Hyperparathyroidism Hypertensive urgency Hypothyroidism Kidney stones Mitral stenosis borderline to mild per 11/2018 ECHO Osteoporosis Partial bowel obstruction 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 (2015), s/p chemo/current colostomy bag (lifelong) Small bowel obstruction resolved with NGT/no surgical intervention needed Vitamin D deficiency Surgical History H/O colostomy History of embolectomy LLE embolectomy/patch angioplasty (2016) Hx of cataract surgery right and left Hx of cystoscopy Hx of tonsillectomy Status post cardiac catheterization 2016 Status post colostomy Status post coronary artery bypass grafting 2003 Status post partial colectomy Status post partial mastectomy left lumpectomy Family History Other Diabetes Heart disease Social History Smoking Status: Former smoker Years Smoked: 49; Second Hand Exposure: No; Hx Alcohol Use: No Hx Substance Use: No Preferred Language: Faroese 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 Ability: Effective Grainer Machine Required: No Beliefs That Will Affect Care: None Current Living Situation: Family Feels Safe at Home: Yes Assistive Devices: None Review of Systems Review of Systems: All systems reviewed & are unremarkable except as noted in HPI & below Physical Exam Physical Exam: Constitutional: WD/WN, vitals as above, NAD, sitting up in bed, pleasant, conversing easily Head: Normocephalic, Atraumatic Eyes: PERRL, conjunctivae normal, anicteric sclerae ENMT: external ear and nose normal, oropharynx normal Neck: trachea midline, no thyromegaly normal visual inspection Respiratory: normal respiratory effort, lungs clear to auscultation, no wheeze, rales, rhonchi. Normal insp/exp effort, no accessory muscle use Cardiovascular: Irregular rate, irregular rhythm, no murmur, no edema Vessels: no JVD or carotid bruit Chest: normal inspection of chest Abdomen: normal bowel sounds, soft, nontender, no hepatosplenomegaly , colostomy left lower quadrant Musculoskeletal: no cyanosis or clubbing, extremities motor strength 5/5 Skin: no rashes, warm and dry normal turgor Neurologic: PERRL, EOMI, accommodation nl, no face palsy, no dysarthria CN's II-XI intact bilaterally and moves all extremities Psychiatric: A+Ox3, euthymic affect Lymphatic: no cervical or axillary lymphadenopathy : deferred Results & Data Results & Data ([facility]) Vital Signs (Past 12 Hours) Vital Signs Temp Pulse Resp BP Pulse Ox 07/19/20 16:01 93 H 22 116/75 97 07/19/20 15:31 85 18 95 07/19/20 15:30 85 24 112/82 95 07/19/20 15:15 81 20 117/62 94 07/19/20 15:00 86 22 128/64 96 07/19/20 14:50 90 19 116/72 96 07/19/20 14:45 101 H 24 95 07/19/20 14:34 96 H 22 07/19/20 13:20 36.8 C 93 H 20 107/65 95 Diagnostic Findings Abdomen/Pelvis CT 07/19/20 14:05 CT OF THE ABDOMEN AND PELVIS WITHOUT CONTRAST CLINICAL HISTORY: Colostomy bleeding. COMPARISON STUDY: CT of the abdomen and pelvis January 21, 2019. TECHNIQUE: Axial images of the abdomen and pelvis were obtained without IV contrast. Images were reviewed in the axial, sagittal, and coronal planes. Automated exposure control was utilized for the study. A dose lowering technique was utilized adhering to the principles of ALARA. FINDINGS: Moderate cardiomegaly is noted. There is mild groundglass opacity within the right middle lobe. No pneumatosis, free air or portal venous gas is present. Evaluation of the abdomen and pelvis is suboptimal on this unenhanced exam. The liver, spleen and pancreas are unremarkable on this unenhanced exam. Bilateral adrenal nodules are unchanged. These are likely benign. There is no biliary or pancreatic ductal dilatation status post cholecystectomy. There is no left hydronephrosis. Moderate right hydroureteronephrosis is noted. No ureteral calculi are identified. Apparent caliber change of the distal right ureter is noted which is decompressed. Postoperative findings at the level of the distal colon and rectum are noted. There is a descending colostomy. There is no evidence for a bowel obstruction. No bowel wall thickening is identified on this unenhanced exam. Sensitivity for detection of mucosal lesions is diminished on this unenhanced exam but none are identified. Ventral hernia contains a portion of the transverse colon. There is no lymphadenopathy. There is no ascites. Multiple lower thoracic and lumbar spine compression fractures are present. IMPRESSION: 1. Moderate right hydroureteronephrosis of uncertain etiology. No ureteral calculi identified. Caliber change of the distal right ureter raises the possibility of a stricture. 2. Postoperative findings within the distal colon and rectum with descending colostomy with parastomal hernia which contains a portion of the transverse colon. No evidence for a bowel obstruction. 3. Mild groundglass opacities within the right middle lobe which could reflect an infectious process or atelectasis. ACT 112: Negative or not required by law. Electronically signed by: Robin Harkins M.D. 07/19/2020 4:21 PM Chest X-Ray 07/19/20 14:05 XR chest 1V portable HISTORY: 85 years-old Female weak acute weakness COMPARISON: Chest radiograph 05/10/2020 TECHNIQUE: Portable AP view of the chest FINDINGS: Cardiac silhouette is enlarged. Prior median sternotomy with cardiac valvular prosthesis. Suggested pulmonary artery hypertension. No pneumothorax or large pleural effusion. Chronic interstitial coarsening with mild bibasilar densities suggestive of atelectasis/scarring. Degenerative changes of the shoulders and spine. Healed remote right-sided rib fractures. IMPRESSION: Cardiomegaly without acute process. ACT 112: Negative or not required by law. The above report was generated using voice recognition software. It may contain grammatical, syntax or spelling errors. Electronically signed by: Roshan Delong M.D. 07/19/2020 3:21 PM Medications Administered Discontinued Medications Sodium Chloride (Nss) 500 mls @ 999 mls/hr IV .Q31M ONE Stop: 07/19/20 16:34 Last Admin: 07/19/20 16:10 Dose: 999 mls/hr Documented by: [id number] Potassium Chloride (K Ariel / Wtr) 10 meq in 100 mls @ 100 mls/hr IV ONE ONE Stop: 07/19/20 17:03 Last Admin: 07/19/20 16:10 Dose: 100 mls/hr Documented by: [id number] ECG Rate (beats per minute): 94 Rhythm: atrial fibrillation Findings: + RBBB COVID-19 Results Results COVID-19 Adm Lab Results: RBC 5.14 M/uL (4.2-5.4) 07/19/20 WBC 7.69 K/uL (4.8-10.8) 07/19/20 Hgb 15.7 g/dL (12.0-16.0) 07/19/20 Hct 45.9 % (37-47) 07/19/20 Plt Count 376 K/uL (130-400) 07/19/20 Neutrophils (%) (Auto) 68.4 % 07/19/20 Lymphocytes (%) (Auto) 22.5 % 07/19/20 Monocytes # (Auto) 0.64 K/uL (0.11-0.59) H 07/19/20 Eosinophils # (Auto) 0.03 K/uL (0-0.5) 07/19/20 Immature Granulocyte % (Auto) 0.3 % 07/19/20 Neutrophils # (Auto) 5.26 K/uL (1.4-6.5) 07/19/20 Lymphocytes # (Auto) 1.73 K/uL (1.2-3.4) 07/19/20 Monocytes # (Auto) 0.64 K/uL (0.11-0.59) H 07/19/20 Eosinophils # (Auto) 0.03 K/uL (0-0.5) 07/19/20 Basophils # (Auto) 0.01 K/uL (0-0.2) 07/19/20 Immature Granulocyte # (Auto) 0.02 K/uL (0.00-0.02) 07/19/20 Na 136 mmol/L (136-145) 07/19/20 K 3.1 mmol/L (3.5-5.1) L 07/19/20 Cl 97 mmol/L (98-107) L 07/19/20 CO2 32 mmol/L (21-32) 07/19/20 Anion Gap 7.0 (3-11) 07/19/20 BUN 43 mg/dl (7-18) H 07/19/20 Creatinine 2.13 mg/dl (0.6-1.2) H 07/19/20 BUN/Creatinine Ratio 20.3 (10-20) H 07/19/20 Glucose Level 49 mg/dl (70-99) L* 07/19/20 Ca 10.4 mg/dl (8.5-10.1) H 07/19/20 Total Bilirubin 0.4 mg/dl (0.2-1) 07/19/20 AST/SGOT 28 U/L (15-37) 07/19/20 ALT/SGPT 25 U/L (12-78) 07/19/20 Alkaline Phosphatase 124 U/L (45-117) H 07/19/20 Total Protein 9.2 gm/dl (6.4-8.2) H 07/19/20 Albumin 3.3 gm/dl (3.4-5.0) L 07/19/20 Globulin 5.9 gm/dl (2.5-4.0) H 07/19/20 Albumin/Globulin Ratio 0.6 (0.9-2) L 07/19/20 Troponin I < 0.015 ng/ml (0-0.045) 07/19/20 PTT 21.9 Seconds (21.0-31.0) 07/19/20 INR 1.1 (0.9-1.1) 07/19/20 COVID-19 PCR NEGATIVE (Negative) 07/19/20 Influenza Virus Type A (PCR) Negative (Neg) 07/19/20 Influenza Virus Type B (PCR) Negative (Neg) 07/19/20 Chest X-Ray 07/19/20 Code Status & VTE Plan Code Status Full Code VTE Prophylaxis Plan VTE Prophylaxis will be ordered: Yes Reason for no VTE drug order: Contraindicated Supervising Physician Co-Signing Physician Notes I saw this patient with the physician ophthalmic assistant, I participated in the history, physical, review of systems, and physical exam. I reviewed the medications with the patient and the physician ophthalmic assistant and helped reconcile the medications. I helped take a detailed family and social history as well. I formulated the assessment and plan personally with the physician ophthalmic assistant and went over it with the patient. ROS-No Headache, No Visual Changes, No Nausea, No Vomiting, No Fever, No Chills, No Neck Pain or Stiffness, No Chest Pain, No Palpitations, No SOB, No RAINEY, No Cough, No Sputum, No Wheezing, No Abdominal Pain, No Diarrhea, No Hematemesis, No Hemoptysis, No Unexpected Weight Loss, No Flank pain, + Melena, No Hematochezia, No Frequency, No Urgency, No Burning, No Hematuria, No Rashes, No Diaphoresis. Appetite is Normal, Weak and tired Physical Exam Gen-AAO x 3, NAD, Afebrile Head-NCAT, EOMI, PERRLA, Anicteric Sclera, No Posterior Pharyngeal Erythema Neck-Supple, No JVD, No Thyromegaly, No Masses, No LAD, No Bruits Lungs-Clear to Auscultation Bilaterally, No Rales, No Rhonchi, No Wheezing, No Crepitus Chest-Irreg/Irreg, No S4, +S1, +S2, No S3, No Murmurs, No Rubs, No Gallops, +Ectopy Abdomen-Soft, Bowel Sounds Present, Non Tender, Non Distended, No Hepatomegaly, No Splenomegaly, No Palpable Masses, No Rebound, No Rigidity, No Guarding Musculoskeletal-Full Range of Motion Bilaterally, No CVAT Extremities-No Cyanosis, No Clubbing, No Edema Nuero-Cranial Nerves II-XII grossly intact, Motor WNL, DTRs WNL, Strength WNL, Non Focal Psych-Normal Mood
[2020-07-19 18:09] LABS: Magnesium 2.6 mg/dl (1.8-2.4)
[2020-07-19] MEDS: NSS + 20MEQ KCL 20 MEQ/1,000 ML BAG IV SCH (18:43)
[2020-07-19] MEDS ORDERED: METOPROLOL TARTRATE 1 MG/ML VIAL IV PRN (20:16)
[2020-07-19] MEDS ORDERED: CARBOHYDRATES FOR HYPOGLYCEMIA PO PRN (20:16)
[2020-07-19] MEDS ORDERED: SODIUM CHLORIDE 0.9% 250 ML IV PRN (20:16)
[2020-07-19] MEDS ORDERED: DEXTROSE 50% 50 ML SYRINGE IV PRN (20:16)
[2020-07-19] MEDS ORDERED: GLUCOSE 10 TABS/TUBE PO PRN (20:16)
[2020-07-19] MEDS ORDERED: GLUCAGON FOR INJ 1 MG VIAL SQ PRN (20:16)
[2020-07-19] MEDS ORDERED: GLUCOSE 40% GEL 15 GM TUBE PO PRN (20:16)
[2020-07-19] MEDS ORDERED: ACETAMINOPHEN 325 MG TAB PO PRN (20:16)
[2020-07-19] MEDS ORDERED: PHARMACY GLYCEMIC MGMT CONSULT PRN (20:27)
[2020-07-19] MEDS ORDERED: INSULIN GLARGINE SOLOSTAR 100 UNITS/ML 3 ML PEN SC SCH (21:00)
[2020-07-19] MEDS: INSULIN ASPART 100 UNITS/ML 3 ML PEN SC SCH (21:16)
[2020-07-19] MEDS: POTASSIUM CHLORIDE / WTR 10 MEQ/100 ML PLCT IV SCH (21:21)
[2020-07-19] MEDS: PANTOprazole 40 MG in DEXTROSE 5% 100 ML IV SCH (21:22)
[2020-07-19] MEDS: ROSUVASTATIN CALCIUM 10 MG TAB PO SCH (21:22)
[2020-07-19] MEDS ORDERED: POTASSIUM CHLORIDE CRTAB 20 MEQ TABCR PO ONE (22:00)
[2020-07-20] MEDS: POTASSIUM CHLORIDE / WTR 10 MEQ/100 ML PLCT IV SCH ×2 (00:47→02:52)
[2020-07-20] MEDS: PANTOprazole 40 MG in DEXTROSE 5% 100 ML IV SCH ×6 (01:49→23:35)
[2020-07-20] MEDS ORDERED: INSULIN ASPART 100 UNITS/ML 3 ML PEN SC SCH (02:00)
[2020-07-20] MEDS: NSS + 20MEQ KCL 20 MEQ/1,000 ML BAG IV SCH ×2 (04:52→20:17)
[2020-07-20 06:44] LABS: Hematocrit (blood only) 38.9 % (37-47); Hemoglobin 12.7 g/dL (12.0-16.0); Mean Corpuscular Hgb Conc 32.6 g/dL (32-36); Mean Platelet Volume 10.3 fL (7.4-10.4); Platelet Count 351 K/uL (130-400); RDW Standard Deviation 50.7 fL (36.4-46.3); Red Blood Count 4.23 M/uL (4.2-5.4); White Blood Count 5.55 K/uL (4.8-10.8)
[2020-07-20] MEDS: LEVOTHYROXINE SODIUM 50 MCG TABLET PO SCH (06:44)
[2020-07-20 07:22] LABS: Albumin Globulin Ratio 0.6 (0.9-2); Albumin Level 2.5 gm/dl (3.4-5.0); BUN Creatinine Ratio 21.3 (10-20); Bilirubin,Total 0.6 mg/dl (0.2-1); Calcium 8.3 mg/dl (8.5-10.1); Est GFR (African American) 31.6; Est GFR (Non-African American) 27.2; Globulin 4.2 gm/dl (2.5-4.0); Total Protein 6.7 gm/dl (6.4-8.2)
[2020-07-20 07:40] LABS: Estimated Average Glucose 157 mg/dl; Hemoglobin A1C 7.1 % (4.5-5.6)
[2020-07-20] MEDS: INSULIN ASPART 100 UNITS/ML 3 ML PEN SC SCH ×4 (07:55→20:19)
[2020-07-20] MEDS: METOPROLOL TARTRATE 25 MG TAB PO SCH ×2 (08:43→20:20)
[2020-07-20] MEDS: CALCITRIOL 0.25 MCG CAPSULE PO SCH (08:44)
[2020-07-20] MEDS: TIMOLOL MALEATE 0.5% OP SOLN 5 ML BTL OPB SCH (08:45)
--- NOTE | 2020-07-20 10:24 | Pharmacy Report ---
Pharmacy Glycemic Short Note 2 - Date of Service July 20, 2020 - Glycemic Short BSG Results (Last 24 hours): 07/19/20 07/19/20 07/19/20 14:37 16:09 20:41 Glucose 49 L* POC Glucose 103 H 110 H 07/20/20 07/20/20 07/20/20 02:22 06:08 07:48 Glucose 125 H POC Glucose 104 H 138 H OUTPATIENT ANTIDIABETIC REGIMEN: * Tresiba 18 units HS, Novolog 5-10 units with breakfast, 7-15 units lunch/dinner + SSI * A1c 7.1% ASSESSMENT: * 85 year old with CKD III, hx of colectomy. Presenting with black stools - started on protonix drip. Also with nausea, decreased appetite/intake. BSGs on arrival in the 40s * Pharmacy consulted to help with glycemic management. Patient did not receive any insulin yesterday * Continues NPO status this AM - BSGs <140s - plan to continue Novolog for now * May add small Lantus scale for HS only if BSGs trending upward PLAN FOR INPATIENT GLYCEMIC CONTROL: * Hold outpatient oral diabetes medications * Basal insulin * Lantus 0-7 units HS - give only if BSG > 200 * Bolus insulin * NovoLog per scale ACHS or Q6hrs while NPO * Goal Range: Low 120 mg/dL - High 160 mg/dL * Correction Factor: 45 mg/dL/unit * Nutritional / Prandial insulin per carb ratio of 1 unit per 15 grams CHO consumed PLAN FOR DISCHARGE: * A1c 7.1% - patient with lower BSGs on arrival, likely related to PO intake/nausea outpatient. Could consider dosage reduction of insulin at discharge if patient reports frequent hypoglycemia outpatient or if PO intake is minimal. Goal A1c ~8% reasonable for patient
--- NOTE | 2020-07-20 10:32 | Urology Consultation ---
Date of Consultation July 20, 2020 Assessment & Plan (1) Hydronephrosis: 85 year old female with multiple comorbidities admitted for weakness, abdominal pain, and melena; noted to have right hydronephrosis. - Hospital course, imaging, and lab work reviewed as well as past medical and surgical history - CT A/P reviewed personally with Dr. Guo - atrophic right kidney, hydronephrosis to distal ureter, also seen in past with stone - Afebrile, labs reviewed - creatinine improved to 1.67, WBC 5.55, Hgb 12.7 - No flank pain or voiding issues - No acute surgical intervention at this time - Consider stent placement and possible ureteral dilation nonurgent in the future - Will arrange outpatient follow-up with our service Thank you for allowing us to participate in the acute care of Ms. Harris. Please reconsult us with additional questions, concerns or changes in patient status. History of Present Illness Reason for Consultation: hydronephrosis, possible stricture, HALI Requesting Physician: Dr. Keyes Attending Physician: Isaias Marsh MD History of Present Illness 85 year old female with PMHx of nephrolithiasis, CAD s/p CABG, breast cancer, colostomy, osteoporosis, atrial fibrillation on Eliquis, type 2 diabetes, hypothyroidism, hyperparathyroidism, and chronic kidney disease admitted for weakness, abdominal pain, and melena. Patient is known to our service for history of nephrolithiasis. She presented to [facility] ED with weakness, abdominal pain, and melanotic stools x 10 days. Afebrile on arrival. Creatinine 2.13, K 3.1, WBC 7.69, Hgb 15.7. CT A/P without con showed moderate right hydroureteronephrosis of uncertain etiology. No ureteral calculi identified. Caliber change of the distal right ureter raises the possibility of a stricture. She was admitted by hospital medicine for further evaluation and management. Our service is consulted for right hydronephrosis, possible stricture. GI and surgical consults are noted. Chart review: Afebrile Creatinine 1.67 WBC 5.55 Hgb 12.7 Patient awake and resting in bed. No issues overnight. She is feeling better since arrival. Weakness is improved. Offers no complaints at present other than she would like to eat. Denies flank or abdominal pain. She is voiding without difficulty. No dysuria or hematuria. No nausea or vomiting. No fever or chills. Denies recent stone passage or problem. No additional concerns today. Allergies Allergy/AdvReac Type Severity Reaction Status Date / Time iodine Allergy Intermediate Itching Verified 07/19/20 16:22 lisinopril Allergy Unknown Unknown Verified 07/19/20 16:22 ondansetron Allergy Unknown Unknown Verified 07/19/20 16:22 Sulfa (Sulfonamide Allergy Unknown Itching Verified 07/19/20 16:22 Antibiotics) Home Medications Medication Instructions Recorded Confirmed Type rosuvastatin 10 mg PO HS #0 03/14/16 07/19/20 History timolol maleate 1 drp OPB QAM 11/23/18 07/19/20 History metoprolol tartrate 25 mg tablet 75 mg PO BID tab 11/19/19 07/19/20 History denosumab 60 mg/mL subcutaneous 60 mg SQ .[id number] #1 ml 03/31/20 07/19/20 Rx syringe levothyroxine 50 mcg tablet 50 mcg PO QAM 90 Days #90 tab 03/31/20 07/19/20 Rx calcitriol 0.25 mcg capsule 0.25 mcg PO DAILY #90 cap 06/08/20 07/19/20 Rx chlorthalidone 25 mg tablet 12.5 mg PO DAILY #45 tab 06/08/20 07/19/20 Rx Tresiba U-100 Insulin 100 unit/mL 18 unit SQ HS #10 ml NS 06/15/20 07/19/20 Rx subcutaneous solution insulin aspart U-100 100 unit/mL See Rx Instructions SUBCUT 06/15/20 07/19/20 Rx subcutaneous solution .COMPLEX #20 ml apixaban 2.5 mg PO BID 07/19/20 07/19/20 History Patient History Medical History Atrial fibrillation paroxysmal CAD (coronary artery disease) s/p CABG x3 (2003) Diabetes mellitus, type 2 Embolism and thrombosis of arteries of lower extremity 2017/LLE embolectomy/patch angioplasty History of breast cancer History of upper gastrointestinal bleeding duodenal ulcer (2013) Hydronephrosis Hypercalcemia Hyperparathyroidism Hypertensive urgency Hypothyroidism Kidney stones Mitral stenosis borderline to mild per 11/2018 ECHO Osteoporosis Partial bowel obstruction 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 (2015), s/p chemo/current colostomy bag (lifelong) Small bowel obstruction resolved with NGT/no surgical intervention needed Vitamin D deficiency Surgical History H/O colostomy History of embolectomy LLE embolectomy/patch angioplasty (2017) Hx of cataract surgery right and left Hx of cystoscopy Hx of tonsillectomy Status post cardiac catheterization 2016 Status post colostomy Status post coronary artery bypass grafting 2004 Status post partial colectomy Status post partial mastectomy left lumpectomy Family History Other Diabetes Heart disease Social History Smoking Status: Former smoker Years Smoked: 49; Second Hand Exposure: No; Hx Alcohol Use: No Hx Substance Use: No Preferred Language: Romanian 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 Ability: Effective Travel Attendants Required: No Beliefs That Will Affect Care: None Current Living Situation: Family Feels Safe at Home: Yes Safety Concerns: Feels Safe At This Time Assistive Devices: Walker Review of Systems Constitutional: as per Subjective / HPI Eyes: no problem reported Ear, Nose, Mouth, Throat: no problem reported Respiratory: no dyspnea Cardiovascular: no chest pain Gastrointestinal: as per Subjective / HPI Genitourinary: as per Subjective / HPI Musculoskeletal: no problem reported Integumentary: no problem reported Neurologic: no problem reported Psychiatric: no problem reported Physical Exam Constitutional: well developed and well nourished; no acute distress and not ill appearing Eyes: no scleral abnormality Neck: normal visual inspection Respiratory: normal respiratory effort and able to speak in complete sentences; no respiratory distress and no labored breathing Cardiovascular: Extremities: no pedal edema Gastrointestinal (Abdomen): Inspection/Auscultation: abdomen normal to inspection; abdomen not distended Percussion/Palpation: abdomen soft; abdomen nontender and no guarding colostomy LLQ Musculoskeletal: Head/Neck/Chest: normocephalic and head atraumatic Skin: no rashes, warm and dry Neurologic: moves all extremities and awake Psychiatric: Orientation: alert and oriented x 3 Genitourinary: no CVA tenderness Results & Data ([facility]) Vital Signs (Past 12 Hours) Vital Signs Temp Pulse Pulse Resp BP Pulse Ox 07/20/20 08:43 36.3 C L 97 H 18 94/65 L 94 07/20/20 07:00 86 07/20/20 03:49 36.4 C L 100 H 18 101/66 94 07/20/20 00:01 36.4 C L 86 18 109/72 97 PG Care Time/CCT Total # of Minutes Spent Total Time Spent with Patient: Total time spent is greater than 50% in coordination of care (as documented) at patient's floor/unit and/or counseling patient: Coding Level of Care Code 85181 Inpt Consult Level 3 Diagnoses Hydronephrosis N13.30
--- NOTE | 2020-07-20 10:33 | Gastrointestinal Consultation ---
Date of Consultation July 20, 2020 Assessment & Plan (1) Melanotic stools: Discussed with her the possibility and suggestion of undergoing an upper endoscopy today. She does not want to push forward with that right now, It seems quite unlikely that she has had any significant GI bleed for 10 days with a normal hemoglobin. Certainly she is having brown stools right now in her ostomy. This may be gastritis and/or sounds subclinical or subacute issue changing her stool color in the setting of anticoagulation. Certainly she has no evidence of any acute active ongoing GI bleeding. Given stability of hemoglobin, vital signs, and patient's desire to have medical management I would continue IV PPI infusion today and then changed to twice daily tomorrow. Okay for a diet and advance as tolerated. I would suggest twice daily PPI for 1 to 2 months, followed by daily PPI 40 mg indefinitely. Would continue to hold anticoagulation today and await urology's decision, if no urologic intervention to be performed would start anticoagulation back if necessary tomorrow and/or assuming no procedures and no signs of bleeding. Please call with any questions or concerns or change in clinical status. Thank you for the consultation. History of Present Illness Attending Physician: Isaias Marsh MD History of Present Illness This is 85-year-old female who has significant past medical history of CAD status post CABG x3 in 2003, chronic atrial fibrillation anticoagulated on Eliquis, T2DM, CKD stage III baseline creatinine 1.5, history of rectal CA sta tus post colectomy with end colostomy 3 years prior, history of embolism and thrombosis of arteries of lower extremity in 2017 status post left lower extremity embolectomy/patch and angioplasty, HTN, history of breast cancer, history of tobacco abuse who presents to ED secondary to weakness and black stool x10 days. Upon presentation to the emergency room she was noted to have profound hypoglycemia, as well as normal vital signs and higher than baseline hemoglobin. She denies any recent NSAID use, any increased in ostomy output. She denies abdominal pain, dysphagia, heartburn or other symptoms. She has been apparently adherent with her Eliquis. However she states that she does not feel as normal as she had since she had multiple falls back in May. Today she says she feels well, she has no complaints other than frequent blood draws, and tells me "she does not want undergo a medical procedure and wants a magic pill and also wants to eat ". She has a history of rectal cancer status post chemoradiation resection and end colostomy. CT scan was reviewed that showed no evidence of recurrence of disease. Did show right hydroureteronephrosis, as well as caliber change of the distal right ureter. 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 Hemoglobin upon presentation 16, 13 this morning after IV hydration. Renal function has improved. Patient would like to eat. CT OF THE ABDOMEN AND PELVIS WITHOUT CONTRAST CLINICAL HISTORY: Colostomy bleeding. COMPARISON STUDY: CT of the abdomen and pelvis January 21, 2019. TECHNIQUE: Axial images of the abdomen and pelvis were obtained without IV contrast. Images were reviewed in the axial, sagittal, and coronal planes. Automated exposure control was utilized for the study. A dose lowering technique was utilized adhering to the principles of ALARA. FINDINGS: Moderate cardiomegaly is noted. There is mild groundglass opacity within the right middle lobe. No pneumatosis, free air or portal venous gas is present. Evaluation of the abdomen and pelvis is suboptimal on this unenhanced exam. The liver, spleen and pancreas are unremarkable on this unenhanced exam. Bilateral adrenal nodules are unchanged. These are likely benign. There is no biliary or pancreatic ductal dilatation status post cholecystectomy. There is no left hydronephrosis. Moderate right hydroureteronephrosis is noted. No ureteral calculi are identified. Apparent caliber change of the distal right ureter is noted which is decompressed. Postoperative findings at the level of the distal colon and rectum are noted. There is a descending colostomy. There is no evidence for a bowel obstruction. No bowel wall thickening is identified on this unenhanced exam. Sensitivity for detection of mucosal lesions is diminished on this unenhanced exam but none are identified. Ventral hernia contains a portion of the transverse colon. There is no lymphadenopathy. There is no ascites. Multiple lower thoracic and lumbar spine compression fractures are present. IMPRESSION: 1. Moderate right hydroureteronephrosis of uncertain etiology. No ureteral calculi identified. Caliber change of the distal right ureter raises the possibility of a stricture. 2. Postoperative findings within the distal colon and rectum with descending colostomy with parastomal hernia which contains a portion of the transverse colon. No evidence for a bowel obstruction. 3. Mild groundglass opacities within the right middle lobe which could reflect an infectious process or atelectasis. Allergies Allergy/AdvReac Type Severity Reaction Status Date / Time iodine Allergy Intermediate Itching Verified 07/19/20 16:22 lisinopril Allergy Unknown Unknown Verified 07/19/20 16:22 ondansetron Allergy Unknown Unknown Verified 07/19/20 16:22 Sulfa (Sulfonamide Allergy Unknown Itching Verified 07/19/20 16:22 Antibiotics) Home Medications Medication Instructions Recorded Confirmed Type rosuvastatin 10 mg PO HS #0 03/14/16 07/19/20 History timolol maleate 1 drp OPB QAM 11/23/18 07/19/20 History metoprolol tartrate 25 mg tablet 75 mg PO BID tab 11/19/19 07/19/20 History denosumab 60 mg/mL subcutaneous 60 mg SQ .[id number] #1 ml 03/31/20 07/19/20 Rx syringe levothyroxine 50 mcg tablet 50 mcg PO QAM 90 Days #90 tab 03/31/20 07/19/20 Rx calcitriol 0.25 mcg capsule 0.25 mcg PO DAILY #90 cap 06/08/20 07/19/20 Rx chlorthalidone 25 mg tablet 12.5 mg PO DAILY #45 tab 06/08/20 07/19/20 Rx Tresiba U-100 Insulin 100 unit/mL 18 unit SQ HS #10 ml NS 06/15/20 07/19/20 Rx subcutaneous solution insulin aspart U-100 100 unit/mL See Rx Instructions SUBCUT 06/15/20 07/19/20 Rx subcutaneous solution .COMPLEX #20 ml apixaban 2.5 mg PO BID 07/19/20 07/19/20 History Patient History Medical History Atrial fibrillation paroxysmal CAD (coronary artery disease) s/p CABG x3 (2003) Diabetes mellitus, type 2 Embolism and thrombosis of arteries of lower extremity 2017/LLE embolectomy/patch angioplasty History of breast cancer History of upper gastrointestinal bleeding duodenal ulcer (2013) Hydronephrosis Hypercalcemia Hyperparathyroidism Hypertensive urgency Hypothyroidism Kidney stones Mitral stenosis borderline to mild per 11/2018 ECHO Osteoporosis Partial bowel obstruction 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 (2015), s/p chemo/current colostomy bag (lifelong) Small bowel obstruction resolved with NGT/no surgical intervention needed Vitamin D deficiency Surgical History H/O colostomy History of embolectomy LLE embolectomy/patch angioplasty (2017) Hx of cataract surgery right and left Hx of cystoscopy Hx of tonsillectomy Status post cardiac catheterization 2016 Status post colostomy Status post coronary artery bypass grafting 2003 Status post partial colectomy Status post partial mastectomy left lumpectomy Family History Other Diabetes Heart disease Social History Smoking Status: Former smoker Years Smoked: 49; Second Hand Exposure: No; Hx Alcohol Use: No Hx Substance Use: No Preferred Language: [place]ese 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 Ability: Effective Vulnerability Assessment Analyst Required: No Beliefs That Will Affect Care: None Current Living Situation: Family Feels Safe at Home: Yes Safety Concerns: Feels Safe At This Time Assistive Devices: Walker Review of Systems Review of Systems: All systems reviewed & are unremarkable except as noted in HPI & below Physical Exam Physical Exam: Ostomy uncapped, there was a slight dark appearance to the wafer of the ostomy, however very light brown stool was noted that was semisolid in the ostomy as well as upon digital examination. Constitutional: WD/WN, vitals as above Sitting up in bed, leaning on her right elbow, appears very well. In no distress Cardiovascular: RRR, no murmur, no edema Gastrointestinal (Abdomen): normal bowel sounds, soft, nontender, no hepatosplenomegaly Results & Data ([facility]) Vital Signs (Past 12 Hours) Vital Signs Temp Pulse Pulse Resp BP Pulse Ox 07/20/20 08:43 36.3 C L 97 H 18 94/65 L 94 07/20/20 07:00 86 07/20/20 03:49 36.4 C L 100 H 18 101/66 94 07/20/20 00:01 36.4 C L 86 18 109/72 97
--- NOTE | 2020-07-20 10:50 | Surgery Consultation ---
Date of Consultation July 20, 2020 Assessment & Plan (1) Parastomal hernia: This patient has a parastomal hernia. It is moderate to large in size. It can be reduced. It is not causing obstruction. Her colostomy is functioning. I do not feel that there is any need for further surgical inte rvention or evaluation at the present time. History of Present Illness Reason for Consultation: Parastomal hernia Requesting Physician: Isaias Marsh MD Attending Physician: Isaias Marsh MD History of Present Illness I have been asked by Dr. Marsh to see this 85-year-old female who was admitted for evaluation of melena. The patient states that she developed black tarry colored stool. She was having some mild epigastric discomfort as well. She no associated nausea or vomiting. She is not had any weight loss. She underwent a low anterior resection for a rectal carcinoma. She had a colostomy formed at that time. She was told that the colostomy would not be able to be reversed. 6 to 12 months after the formation of the colostomy she developed a hernia. The bulge is present almost all of the time. It does not cause her any pain. Has not increased in size over the last few years. She has not had any nausea or vomiting associated with it. Her colostomy continues to function. The stool that was black on admission is now brown. She has no history of bowel obstruction. Allergies Allergy/AdvReac Type Severity Reaction Status Date / Time iodine Allergy Intermediate Itching Verified 07/19/20 16:22 lisinopril Allergy Unknown Unknown Verified 07/19/20 16:22 ondansetron Allergy Unknown Unknown Verified 07/19/20 16:22 Sulfa (Sulfonamide Allergy Unknown Itching Verified 07/19/20 16:22 Antibiotics) Home Medications Medication Instructions Recorded Confirmed Type rosuvastatin 10 mg PO HS #0 03/14/16 07/19/20 History timolol maleate 1 drp OPB QAM 11/23/18 07/19/20 History metoprolol tartrate 25 mg tablet 75 mg PO BID tab 11/19/19 07/19/20 History denosumab 60 mg/mL subcutaneous 60 mg SQ .o2vijiub #1 ml 03/31/20 07/19/20 Rx syringe levothyroxine 50 mcg tablet 50 mcg PO QAM 90 Days #90 tab 03/31/20 07/19/20 Rx calcitriol 0.25 mcg capsule 0.25 mcg PO DAILY #90 cap 06/08/20 07/19/20 Rx chlorthalidone 25 mg tablet 12.5 mg PO DAILY #45 tab 06/08/20 07/19/20 Rx Tresiba U-100 Insulin 100 unit/mL 18 unit SQ HS #10 ml NS 06/15/20 07/19/20 Rx subcutaneous solution insulin aspart U-100 100 unit/mL See Rx Instructions SUBCUT 06/15/20 07/19/20 Rx subcutaneous solution .COMPLEX #20 ml apixaban 2.5 mg PO BID 07/19/20 07/19/20 History Patient History Medical History Atrial fibrillation paroxysmal CAD (coronary artery disease) s/p CABG x3 (2003) Diabetes mellitus, type 2 Embolism and thrombosis of arteries of lower extremity 2017/LLE embolectomy/patch angioplasty History of breast cancer History of upper gastrointestinal bleeding duodenal ulcer (2013) Hydronephrosis Hypercalcemia Hyperparathyroidism Hypertensive urgency Hypothyroidism Kidney stones Mitral stenosis borderline to mild per 11/2018 ECHO Osteoporosis Partial bowel obstruction 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 (2015), s/p chemo/current colostomy bag (lifelong) Small bowel obstruction resolved with NGT/no surgical intervention needed Vitamin D deficiency Surgical History H/O colostomy History of embolectomy LLE embolectomy/patch angioplasty (2016) Hx of cataract surgery right and left Hx of cystoscopy Hx of tonsillectomy Status post cardiac catheterization 2016 Status post colostomy Status post coronary artery bypass grafting 2003 Status post partial colectomy Status post partial mastectomy left lumpectomy Family History Other Diabetes Heart disease Social History Smoking Status: Former smoker Years Smoked: 49; Second Hand Exposure: No; Hx Alcohol Use: No Hx Substance Use: No Preferred Language: Belizean 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 Ability: Effective Application Engineer Required: No Beliefs That Will Affect Care: None Current Living Situation: Family Feels Safe at Home: Yes Safety Concerns: Feels Safe At This Time Assistive Devices: Walker Physical Exam Constitutional: no acute distress Respiratory: normal respiratory effort, lungs clear to auscultation Cardiovascular: Rate/Rhythm: + irregularly irregular Gastrointestinal (Abdomen): Inspection/Auscultation: normal bowel sounds and + visible herniation (Parastomal hernia that is mildly tender when reduced but can be reduced.); abdomen not distended Percussion/Palpation: abdomen soft; abdomen nontender Results & Data ([facility]) Vital Signs (Past 12 Hours) Vital Signs Temp Pulse Pulse Resp BP Pulse Ox 07/20/20 08:43 36.3 C L 97 H 18 94/65 L 94 07/20/20 07:00 86 07/20/20 03:49 36.4 C L 100 H 18 101/66 94 07/20/20 00:01 36.4 C L 86 18 109/72 97 Laboratory Results 07/20/20 07/20/20 07/20/20 Range/Units 07:48 06:08 06:08 WBC (4.8-10.8) K/uL RBC (4.2-5.4) M/uL Hgb (12.0-16.0) g/dL Hct (37-47) % MCV (80-100) fL MCH (25-34) pg MCHC (32-36) g/dL RDW Std Deviation (36.4-46.3) fL RDW Coeff of Kei (11.5-14.5) % Plt Count (130-400) K/uL MPV (7.4-10.4) fL Immature Gran % (Auto) % Neut % (Auto) % Lymph % (Auto) % Talbot % (Auto) % Eos % (Auto) % Baso % (Auto) % Neut # (Auto) (1.4-6.5) K/uL Lymph # (Auto) (1.2-3.4) K/uL Talbot # (Auto) (0.11-0.59) K/uL Eos # (Auto) (0-0.5) K/uL Baso # (Auto) (0-0.2) K/uL Immature Gran # (Auto) (0.00-0.02) K/uL PT (9.0-12.0) Seconds INR (0.9-1.1) APTT (21.0-31.0) Seconds PTT Ratio Sodium 138 (136-145) mmol/L Potassium (3.5-5.1) mmol/L Chloride 104 (98-107) mmol/L Carbon Dioxide 29 (21-32) mmol/L Anion Gap 5.0 (3-11) BUN 35 H (7-18) mg/dl Creatinine 1.67 H D (0.6-1.2) mg/dl Est Cr Clr Drug Dosing 23.0 ml/min Est GFR ( Amer) 31.6 Est GFR (Non-Af Amer) 27.2 BUN/Creatinine Ratio 21.3 H (10-20) Glucose 125 H (70-99) mg/dl POC Glucose 138 H (70-99) mg/dl Estimat Average Glucose 157 mg/dl Hemoglobin A1c 7.1 H (4.5-5.6) % Calcium 8.3 L D (8.5-10.1) mg/dl Magnesium (1.8-2.4) mg/dl Total Bilirubin 0.6 (0.2-1) mg/dl AST (15-37) U/L ALT 16 (12-78) U/L Alkaline Phosphatase 91 (45-117) U/L Troponin I (0-0.045) ng/ml Total Protein 6.7 D (6.4-8.2) gm/dl Albumin 2.5 L (3.4-5.0) gm/dl Globulin 4.2 H (2.5-4.0) gm/dl Albumin/Globulin Ratio 0.6 L (0.9-2) Lipase (73-393) U/L POC Stool Occult Blood COVID-19 Eval Order SARS-CoV-2 (PCR) (Negative) Influenza Type A (PCR) (Neg) Influenza Type B (PCR) (Neg) RSV (RT-PCR) (Neg) Blood Type Antibody Screen Crossmatch 07/20/20 07/20/20 07/19/20 Range/Units 06:08 02:22 20:41 WBC 5.55 (4.8-10.8) K/uL RBC 4.23 (4.2-5.4) M/uL Hgb 12.7 D (12.0-16.0) g/dL Hct 38.9 (37-47) % MCV 92.0 (80-100) fL MCH 30.0 (25-34) pg MCHC 32.6 (32-36) g/dL RDW Std Deviation 50.7 H (36.4-46.3) fL RDW Coeff of Kei 15.0 H (11.5-14.5) % Plt Count 351 (130-400) K/uL MPV 10.3 (7.4-10.4) fL Immature Gran % (Auto) % Neut % (Auto) % Lymph % (Auto) % Talbot % (Auto) % Eos % (Auto) % Baso % (Auto) % Neut # (Auto) (1.4-6.5) K/uL Lymph # (Auto) (1.2-3.4) K/uL Talbot # (Auto) (0.11-0.59) K/uL Eos # (Auto) (0-0.5) K/uL Baso # (Auto) (0-0.2) K/uL Immature Gran # (Auto) (0.00-0.02) K/uL PT (9.0-12.0) Seconds INR (0.9-1.1) APTT (21.0-31.0) Seconds PTT Ratio Sodium (136-145) mmol/L Potassium (3.5-5.1) mmol/L Chloride (98-107) mmol/L Carbon Dioxide (21-32) mmol/L Anion Gap (3-11) BUN (7-18) mg/dl Creatinine (0.6-1.2) mg/dl Est Cr Clr Drug Dosing ml/min Est GFR ( Amer) Est GFR (Non-Af Amer) BUN/Creatinine Ratio (10-20) Glucose (70-99) mg/dl POC Glucose 104 H 110 H (70-99) mg/dl Estimat Average Glucose mg/dl Hemoglobin A1c (4.5-5.6) % Calcium (8.5-10.1) mg/dl Magnesium (1.8-2.4) mg/dl Total Bilirubin (0.2-1) mg/dl AST (15-37) U/L ALT (12-78) U/L Alkaline Phosphatase (45-117) U/L Troponin I (0-0.045) ng/ml Total Protein (6.4-8.2) gm/dl Albumin (3.4-5.0) gm/dl Globulin (2.5-4.0) gm/dl Albumin/Globulin Ratio (0.9-2) Lipase (73-393) U/L POC Stool Occult Blood COVID-19 Eval Order SARS-CoV-2 (PCR) (Negative) Influenza Type A (PCR) (Neg) Influenza Type B (PCR) (Neg) RSV (RT-PCR) (Neg) Blood Type Antibody Screen Crossmatch 07/19/20 07/19/20 07/19/20 Range/Units 17:58 16:35 16:09 WBC (4.8-10.8) K/uL RBC (4.2-5.4) M/uL Hgb (12.0-16.0) g/dL Hct (37-47) % MCV (80-100) fL MCH (25-34) pg MCHC (32-36) g/dL RDW Std Deviation (36.4-46.3) fL RDW Coeff of Kei (11.5-14.5) % Plt Count (130-400) K/uL MPV (7.4-10.4) fL Immature Gran % (Auto) % Neut % (Auto) % Lymph % (Auto) % Talbot % (Auto) % Eos % (Auto) % Baso % (Auto) % Neut # (Auto) (1.4-6.5) K/uL Lymph # (Auto) (1.2-3.4) K/uL Talbot # (Auto) (0.11-0.59) K/uL Eos # (Auto) (0-0.5) K/uL Baso # (Auto) (0-0.2) K/uL Immature Gran # (Auto) (0.00-0.02) K/uL PT (9.0-12.0) Seconds INR (0.9-1.1) APTT (21.0-31.0) Seconds PTT Ratio Sodium (136-145) mmol/L Potassium (3.5-5.1) mmol/L Chloride (98-107) mmol/L Carbon Dioxide (21-32) mmol/L Anion Gap (3-11) BUN (7-18) mg/dl Creatinine (0.6-1.2) mg/dl Est Cr Clr Drug Dosing ml/min Est GFR ( Amer) Est GFR (Non-Af Amer) BUN/Creatinine Ratio (10-20) Glucose (70-99) mg/dl POC Glucose 103 H (70-99) mg/dl Estimat Average Glucose mg/dl Hemoglobin A1c (4.5-5.6) % Calcium (8.5-10.1) mg/dl Magnesium (1.8-2.4) mg/dl Total Bilirubin (0.2-1) mg/dl AST (15-37) U/L ALT (12-78) U/L Alkaline Phosphatase (45-117) U/L Troponin I (0-0.045) ng/ml Total Protein (6.4-8.2) gm/dl Albumin (3.4-5.0) gm/dl Globulin (2.5-4.0) gm/dl Albumin/Globulin Ratio (0.9-2) Lipase (73-393) U/L POC Stool Occult Blood Positive A Cancelled COVID-19 Eval Order SARS-CoV-2 (PCR) (Negative) Influenza Type A (PCR) (Neg) Influenza Type B (PCR) (Neg) RSV (RT-PCR) (Neg) Blood Type Antibody Screen Crossmatch 07/19/20 07/19/20 07/19/20 Range/Units 14:46 14:46 14:37 WBC (4.8-10.8) K/uL RBC (4.2-5.4) M/uL Hgb (12.0-16.0) g/dL Hct (37-47) % MCV (80-100) fL MCH (25-34) pg MCHC (32-36) g/dL RDW Std Deviation (36.4-46.3) fL RDW Coeff of Kei (11.5-14.5) % Plt Count (130-400) K/uL MPV (7.4-10.4) fL Immature Gran % (Auto) % Neut % (Auto) % Lymph % (Auto) % Talbot % (Auto) % Eos % (Auto) % Baso % (Auto) % Neut # (Auto) (1.4-6.5) K/uL Lymph # (Auto) (1.2-3.4) K/uL Talbot # (Auto) (0.11-0.59) K/uL Eos # (Auto) (0-0.5) K/uL Baso # (Auto) (0-0.2) K/uL Immature Gran # (Auto) (0.00-0.02) K/uL PT (9.0-12.0) Seconds INR (0.9-1.1) APTT (21.0-31.0) Seconds PTT Ratio Sodium 136 (136-145) mmol/L Potassium 3.1 L (3.5-5.1) mmol/L Chloride 97 L (98-107) mmol/L Carbon Dioxide 32 (21-32) mmol/L Anion Gap 7.0 (3-11) BUN 43 H (7-18) mg/dl Creatinine 2.13 H (0.6-1.2) mg/dl Est Cr Clr Drug Dosing 17.6 ml/min Est GFR ( Amer) 23.5 Est GFR (Non-Af Amer) 20.3 BUN/Creatinine Ratio 20.3 H (10-20) Glucose 49 L* (70-99) mg/dl POC Glucose (70-99) mg/dl Estimat Average Glucose mg/dl Hemoglobin A1c (4.5-5.6) % Calcium 10.4 H (8.5-10.1) mg/dl Magnesium 2.6 H (1.8-2.4) mg/dl Total Bilirubin 0.4 (0.2-1) mg/dl AST 28 (15-37) U/L ALT 25 (12-78) U/L Alkaline Phosphatase 124 H (45-117) U/L Troponin I < 0.015 (0-0.045) ng/ml Total Protein 9.2 H (6.4-8.2) gm/dl Albumin 3.3 L (3.4-5.0) gm/dl Globulin 5.9 H (2.5-4.0) gm/dl Albumin/Globulin Ratio 0.6 L (0.9-2) Lipase 135 (73-393) U/L POC Stool Occult Blood COVID-19 Eval Order CovFluRsv at [facility] SARS-CoV-2 (PCR) NEGATIVE (Negative) Influenza Type A (PCR) Negative (Neg) Influenza Type B (PCR) Negative (Neg) RSV (RT-PCR) Negative (Neg) Blood Type Antibody Screen Crossmatch 07/19/20 07/19/2007/19/21 Range/Units 14:37 14:37 14:37 WBC 7.69 (4.8-10.8) K/uL RBC 5.14 (4.2-5.4) M/uL Hgb 15.7 (12.0-16.0) g/dL Hct 45.9 (37-47) % MCV 89.3 (80-100) fL MCH 30.5 (25-34) pg MCHC 34.2 (32-36) g/dL RDW Std Deviation 47.8 H (36.4-46.3) fL RDW Coeff of Kei 14.7 H (11.5-14.5) % Plt Count 376 (130-400) K/uL MPV 10.0 (7.4-10.4) fL Immature Gran % (Auto) 0.3 % Neut % (Auto) 68.4 % Lymph % (Auto) 22.5 % Talbot % (Auto) 8.3 % Eos % (Auto) 0.4 % Baso % (Auto) 0.1 % Neut # (Auto) 5.26 (1.4-6.5) K/uL Lymph # (Auto) 1.73 (1.2-3.4) K/uL Talbot # (Auto) 0.64 H (0.11-0.59) K/uL Eos # (Auto) 0.03 (0-0.5) K/uL Baso # (Auto) 0.01 (0-0.2) K/uL Immature Gran # (Auto) 0.02 (0.00-0.02) K/uL PT 11.2 (9.0-12.0) Seconds INR 1.1 (0.9-1.1) APTT 21.9 (21.0-31.0) Seconds PTT Ratio 0.8 Sodium (136-145) mmol/L Potassium (3.5-5.1) mmol/L Chloride (98-107) mmol/L Carbon Dioxide (21-32) mmol/L Anion Gap (3-11) BUN (7-18) mg/dl Creatinine (0.6-1.2) mg/dl Est Cr Clr Drug Dosing ml/min Est GFR ( Amer) Est GFR (Non-Af Amer) BUN/Creatinine Ratio (10-20) Glucose (70-99) mg/dl POC Glucose (70-99) mg/dl Estimat Average Glucose mg/dl Hemoglobin A1c (4.5-5.6) % Calcium (8.5-10.1) mg/dl Magnesium (1.8-2.4) mg/dl Total Bilirubin (0.2-1) mg/dl AST (15-37) U/L ALT (12-78) U/L Alkaline Phosphatase (45-117) U/L Troponin I (0-0.045) ng/ml Total Protein (6.4-8.2) gm/dl Albumin (3.4-5.0) gm/dl Globulin (2.5-4.0) gm/dl Albumin/Globulin Ratio (0.9-2) Lipase (73-393) U/L POC Stool Occult Blood COVID-19 Eval Order SARS-CoV-2 (PCR) (Negative) Influenza Type A (PCR) (Neg) Influenza Type B (PCR) (Neg) RSV (RT-PCR) (Neg) Blood Type A Positive Antibody Screen NEGATIVE Crossmatch See Detail Diagnostic Findings CT OF THE ABDOMEN AND PELVIS WITHOUT CONTRAST CLINICAL HISTORY: Colostomy bleeding. COMPARISON STUDY: CT of the abdomen and pelvis January 21, 2019. TECHNIQUE: Axial images of the abdomen and pelvis were obtained without IV contrast. Images were reviewed in the axial, sagittal, and coronal planes. Automated exposure control was utilized for the study. A dose lowering technique was utilized adhering to the principles of ALARA. FINDINGS: Moderate cardiomegaly is noted. There is mild groundglass opacity within the right middle lobe. No pneumatosis, free air or portal venous gas is present. Evaluation of the abdomen and pelvis is suboptimal on this unenhanced exam. The liver, spleen and pancreas are unremarkable on this unenhanced exam. Bilateral adrenal nodules are unchanged. These are likely benign. There is no biliary or pancreatic ductal dilatation status post cholecystectomy. There is no left hydronephrosis. Moderate right hydroureteronephrosis is noted. No ureteral calculi are identified. Apparent caliber change of the distal right ureter is noted which is decompressed. Postoperative findings at the level of the distal colon and rectum are noted. There is a descending colostomy. There is no evidence for a bowel obstruction. No bowel wall thickening is identified on this unenhanced exam. Sensitivity for detection of mucosal lesions is diminished on this unenhanced exam but none are identified. Ventral hernia contains a portion of the transverse colon. There is no lymphadenopathy. There is no ascites. Multiple lower thoracic and lumbar spine compression fractures are present. IMPRESSION: 1. Moderate right hydroureteronephrosis of uncertain etiology. No ureteral calculi identified. Caliber change of the distal right ureter raises the possibility of a stricture. 2. Postoperative findings within the distal colon and rectum with descending colostomy with parastomal hernia which contains a portion of the transverse col on. No evidence for a bowel obstruction. 3. Mild groundglass opacities within the right middle lobe which could reflect an infectious process or atelectasis. (1) Parastomal hernia Obstruction and gangrene presence: without obstruction or gangrene Qualified Code(s): K43.5 - Parastomal hernia without obstruction or gangrene
--- NOTE | 2020-07-20 19:27 | Hospitalist Progress Note ---
Date of Service July 20, 2020 Assessment & Plan (1) Weakness: (2) Melanotic stools: This is a 85-year-old female who has significant past medical history of CAD status post CABG x3 in 2003, chronic atrial fibrillation anticoagulated on Eliquis, T2DM, CKD stage III baseline creatinine 1.5, history of rectal CA status post colectomy with end colostomy 3 years prior, history of embolism and thrombosis of arteries of lower extremity in 2017 status post left lower extremity embolectomy/patch and angioplasty, HTN, history of breast cancer, history of tobacco abuse who presents to ED secondary to weakness and black stool x10 days. 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 No evidence for a bowel obstruction. Hgb 12.7 today Gastro on board recommended to continue IV PPI infusion today and then transition to twice daily in am for 1 to 2 months, then follow by daily PPI 40 mg indefinitely. Tolerated clear liquid diet and advanced as tolerated continue to hold anticoagulation today Ok to start anticoagulation back possible tomorrow or if no sign of bleeding Will monitor H/H Continue monitor (3) Acute kidney injury superimposed on chronic kidney disease: Creatinine on admission 2.13 baseline creatinine 1.5 Received IVF Continue to hold diuretic Creatinine 1.6 today Urology consult, no Coninue monitor BMP (4) Hypokalemia: K 3.1 K replaced Continue monitor BMP (5) Atrial fibrillation: Chronic atrial fibrillation, currently RVR Likely in setting of dehydration underlying illness Continue Metoprolol tartrate 75 mg tartrate BID Continue to hold Eliquis for now (6) CAD (coronary artery disease): hx of cabg x 3 continue metoprolol, crestor symptomatic (7) Hypercalcemia: hyperparathyroidism follows Dr. Booker, corrected ca 11.1 pt is not on ca or vit D supplements She is on calcitriol continue with IVF, possibly in setting of dehydration repeat in a.m. resume chlorthalidone when able (8) Diabetes mellitus, type 2: Insulin-dependent, well controlled Last A1c 6.2 on 05/10/2020 Continue Lantus/NovoLog per protocol Continue cuca BS (9) Hydronephrosis: CT abd/pelvis showed moderate right hydroureteronephrosis of uncertain etiology. No ureteral calculi identified. Caliber change of the distal right ureter raises the possibility of a stricture. Urology on board - No acute surgical intervention at this time Consider stent placement and possible ureteral dilation outpatient Follow up with urology (10) Abnormal CT of the abdomen: History of rectal cancer status post resection with end colostomy CT abdomen pelvis reveals parastomal hernia with transverse colon, no bowel obst ruction Surgery on board No need for further surgical intervention or evaluation at the present time as per surgeon (11) DVT prophylaxis: SCD/teds Hold Eliquis in setting of melenic stools Dispo: PCU Full code PCP: Dr. Carpenter Disposition Possible discharge home tomorrow Admission and Anticipated Discharge Date Admission Date: July 19, 2020 Subjective Pt was seen and examined for follow up of dark stool Lying in bed with no distress. Pt said that she feels fine She is upset because she was started on clear liquid diet and she is hungry She said that she feels fine She said that her stools are no longer dark from the colostomy bag Denies any chest pain, palpitation dizziness and SOB Review of Systems Review of Systems: All systems reviewed & are unremarkable except as noted in Subjective Physical Exam Physical Exam: General- No acute distress Head- atraumatic Eyes- PERRL, EOMI, ENT- oropharynx clear Neck- supple, no JVD Lungs- clear to auscultation Heart- regular rhythm; no murmur Abdomen- normal bowel sounds, nontender, +colostomy bag Extremities- no calf tenderness Neuro- alert, oriented x 3; PERRL, EOMI; no facial palsy; no dysarthria Skin- warm & dry Results & Data Results & Data ([facility]) Vital Signs (Past 12 Hours) Vital Signs Temp Pulse Pulse Resp BP Pulse Ox 07/20/20 19:04 36.4 C L 78 16 104/69 96 07/20/20 15:04 36.5 C 89 16 96/57 L 97 07/20/20 15:02 86 07/20/20 11:28 36.4 C L 92 H 20 108/67 97 07/20/20 08:43 36.3 C L 97 H 18 94/65 L 94
[2020-07-20] MEDS: ROSUVASTATIN CALCIUM 10 MG TAB PO SCH (20:20)
[2020-07-20] MEDS ORDERED: INSULIN GLARGINE SOLOSTAR 100 UNITS/ML 3 ML PEN SC SCH (21:00)
--- NOTE | 2020-07-20 23:10 | Electrocardiogram Report ---
Test Reason : Blood Pressure : / mmHG Vent. Rate : 094 BPM Atrial Rate : 088 BPM P-R Int : 000 ms QRS Dur : 156 ms QT Int : 450 ms P-R-T Axes : 000 101 -18 degrees QTc Int : 562 ms Poor data quality, interpretation may be adversely affected Atrial fibrillation Right bundle branch block Abnormal ECG When compared with ECG of 10-MAY-2020 18:31, QRS duration has increased QT has lengthened Confirmed by Torin Cervantes ([id number]) on 07/20/2020 11:10:09 PM Referred By: Moe Carpenter Confirmed By:Torin Cervantes
[2020-07-21] MEDS: PANTOprazole 40 MG in DEXTROSE 5% 100 ML IV SCH ×4 (04:52→23:48)
[2020-07-21] MEDS: LEVOTHYROXINE SODIUM 50 MCG TABLET PO SCH (05:46)
--- NOTE | 2020-07-21 06:11 | Electrocardiogram Report ---
Test Reason : Blood Pressure : / mmHG Vent. Rate : 089 BPM Atrial Rate : 094 BPM P-R Int : 000 ms QRS Dur : 154 ms QT Int : 474 ms P-R-T Axes : 000 097 -23 degrees QTc Int : 576 ms Poor data quality, interpretation may be adversely affected Atrial fibrillation with a competing junctional pacemaker Right bundle branch block T wave abnormality, consider inferior ischemia Abnormal ECG When compared with ECG of 19-JUL-2020 14:33, No significant change was found Confirmed by Torin Cervantes ([id number] on 07/21/2020 6:11:01 AM Referred By: Moe Carpenter Confirmed By:Torin Cervantes
[2020-07-21] MEDS: CALCITRIOL 0.25 MCG CAPSULE PO SCH (08:25)
[2020-07-21] MEDS: TIMOLOL MALEATE 0.5% OP SOLN 5 ML BTL OPB SCH (08:25)
[2020-07-21] MEDS: METOPROLOL TARTRATE 25 MG TAB PO SCH ×2 (08:25→20:01)
[2020-07-21] MEDS: INSULIN ASPART 100 UNITS/ML 3 ML PEN SC SCH ×4 (08:26→20:50)
[2020-07-21] MEDS ORDERED: INSULIN GLARGINE SOLOSTAR 100 UNITS/ML 3 ML PEN SC SCH ×2 (09:00→21:00)
[2020-07-21] MEDS: NSS + 20MEQ KCL 20 MEQ/1,000 ML BAG IV SCH (10:25)
--- NOTE | 2020-07-21 13:53 | Hospitalist Progress Note ---
Date of Service July 21, 2020 Assessment & Plan (1) Weakness: (2) Melanotic stools: This is a 85-year-old female who has significant past medical history of CAD status post CABG x3 in 2004, chronic atrial fibrillation anticoagulated on Eliquis, T2DM, CKD stage III baseline creatinine 1.5, history of rectal CA status post colectomy with end colostomy 3 years prior, history of embolism and thrombosis of arteries of lower extremity in 2017 status post left lower extremity embolectomy/patch and angioplasty, HTN, history of breast cancer, history of tobacco abuse who presents to ED secondary to weakness and black stool x10 days. 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 No evidence for a bowel obstruction. Hgb 13.2 today , stable GI on board recommended to continue IV PPI infusion and then transition to twice daily for 1 to 2 months, then follow by daily PPI 40 mg indefinitely. Tolerated clear liquid diet and advanced as tolerated Will restart anticoagulation (Eliquis) today PM, as there are no signs of bleeding Will monitor H/H Continue monitor (3) Acute kidney injury superimposed on chronic kidney disease: Creatinine on admission 2.13 baseline creatinine 1.5 Received IVF Continue to hold diuretic Creatinine 1.7 today Urology consult, no intervention at this time, however will need outpatient follow-up Coninue monitor BMP (4) Hypokalemia: K 3.1 K replaced Current K 3.8 Continue monitor BMP (5) Atrial fibrillation: Chronic atrial fibrillation, currently RVR Likely in setting of dehydration underlying illness Continue Metoprolol tartrate 75 mg tartrate BID Held Eliquis, will resume now (6) CAD (coronary artery disease): hx of cabg x 3 continue metoprolol, crestor symptomatic (7) Hypercalcemia: hyperparathyroidism follows Dr. Booker, corrected ca 11.1 pt is not on ca or vit D supplements She is on calcitriol continue with IVF, possibly in setting of dehydration repeat Ca 8.5 resume chlorthalidone when able (8) Diabetes mellitus, type 2: Insulin-dependent, well controlled Last A1c 6.2 on 05/10/2020 Continue Lantus/NovoLog per protocol Continue cuca BS (9) Hydronephrosis: CT abd/pelvis showed moderate right hydroureteronephrosis of uncertain etiology. No ureteral calculi identified. Caliber change of the distal right ureter raises the possibility of a stricture. Urology consulted - No acute surgical intervention at this time Consider stent placement and possible ureteral dilation outpatient Follow up with urology as outpt (10) Abnormal CT of the abdomen: History of rectal cancer status post resection with end colostomy CT abdomen pelvis reveals parastomal hernia with transverse colon, no bowel obstruction Surgery consulted No need for further surgical intervention or evaluation at the present time as per surgeon (11) DVT prophylaxis: SCD/teds Held Eliquis in setting of melenic stools, will resume now Dispo: PCU Full code PCP: Dr. Carpenter Disposition Possible discharge home tomorrow Admission and Anticipated Discharge Date Admission Date: July 19, 2020 Subjective Pt was seen and examined for follow up of dark stool/ concern for GI bleed Lying in bed with no distress. Pt reports feeling well. Her stools are no longer dark from the colostomy bag Denies any chest pain, shortness of breath, abdominal pain, palpitation dizziness and SOB Review of Systems Review of Systems: All systems reviewed & are unremarkable except as noted in HPI & below Constitutional: no fever and no chills Respiratory: no cough and no dyspnea Cardiovascular: no chest pain and no palpitations Gastrointestinal: no abdominal pain, no nausea and no vomiting Physical Exam Physical Exam: General- No acute distress Head- atraumatic Eyes- PERRL, EOMI, ENT- oropharynx clear Neck- supple, no JVD Lungs- clear to auscultation Heart- regular rhythm; no murmur Abdomen- normal bowel sounds, nontender, +colostomy bag Extremities- no calf tenderness, moves extremities Neuro- alert, oriented x 3; PERRL, EOMI; no facial palsy; no dysarthria, moves extremities Skin- warm & dry Results & Data Results & Data ([facility]) Vital Signs (Past 12 Hours) Vital Signs Temp Pulse Resp BP Pulse Ox 07/21/20 11:14 36.4 C L 68 20 120/74 94 07/21/20 07:17 36.3 C L 95 H 20 121/84 98 07/21/20 04:19 36.4 C L 96 H 18 135/65 97 Laboratory Results 07/21/20 07/21/20 07/21/20 Range/Units 13:35 13:35 11:12 WBC 5.33 (4.8-10.8) K/uL RBC 4.42 (4.2-5.4) M/uL Hgb 13.2 (12.0-16.0) g/dL Hct 40.5 (37-47) % MCV 91.6 (80-100) fL MCH 29.9 (25-34) pg MCHC 32.6 (32-36) g/dL RDW Std Deviation 51.3 H (36.4-46.3) fL RDW Coeff of Kei 15.2 H (11.5-14.5) % Plt Count 337 (130-400) K/uL MPV 9.9 (7.4-10.4) fL Sodium 140 (136-145) mmol/L Potassium 3.8 D (3.5-5.1) mmol/L Chloride 107 (98-107) mmol/L Carbon Dioxide 26 (21-32) mmol/L Anion Gap 7.0 (3-11) BUN 27 H (7-18) mg/dl Creatinine 1.77 H (0.6-1.2) mg/dl Est Cr Clr Drug Dosing 22.0 ml/min Est GFR ( Amer) 29.4 ml/min Est GFR (Non-Af Amer) 25.4 ml/min BUN/Creatinine Ratio 15.3 (10-20) Glucose 152 H (70-99) mg/dl POC Glucose 150 H (70-99) mg/dl Calcium 8.5 (8.5-10.1) mg/dl 07/21/20 07/20/20 Range/Units 07:36 20:19 WBC (4.8-10.8) K/uL RBC (4.2-5.4) M/uL Hgb (12.0-16.0) g/dL Hct (37-47) % MCV (80-100) fL MCH (25-34) pg MCHC (32-36) g/dL RDW Std Deviation (36.4-46.3) fL RDW Coeff of Kei (11.5-14.5) % Plt Count (130-400) K/uL MPV (7.4-10.4) fL Sodium (136-145) mmol/L Potassium (3.5-5.1) mmol/L Chloride (98-107) mmol/L Carbon Dioxide (21-32) mmol/L Anion Gap (3-11) BUN (7-18) mg/dl Creatinine (0.6-1.2) mg/dl Est Cr Clr Drug Dosing ml/min Est GFR ( Amer) ml/min Est GFR (Non-Af Amer) ml/min BUN/Creatinine Ratio (10-20) Glucose (70-99) mg/dl POC Glucose 173 H 149 H (70-99) mg/dl Calcium (8.5-10.1) mg/dl Medications Administered Current Inpatient Medications Acetaminophen (Acetaminophen 325 Mg Tab) 650 mg PO Q4H PRN PRN Reason: Pain or Fever Stop: 08/18/20 20:15 Calcitriol (Calcitriol 0.25 Mcg Capsule) 0.25 mcg PO DAILY [facility] Stop: 08/19/20 08:59 Last Admin: 07/21/20 08:25 Dose: 0.25 mcg Documented by: Dextrose (Dextrose 50% 50 Ml Syringe) 25 - 50 ml IV UD PRN; Protocol PRN Reason: Hypoglycemia Protocol Stop: 08/18/20 20:15 Glucagon (Glucagon For Inj 1 Mg Vial) 1 mg SQ UD PRN; Protocol PRN Reason: Hypoglycemia Protocol Stop: 08/18/20 20:15 Glucose (Glucose 10 Tabs/Tube) 4 - 8 tabs PO UD PRN; Protocol PRN Reason: Hypoglycemia Protocol Stop: 08/18/20 20:15 Glucose (Glucose 40% Gel 15 Gm Tube) 15 - 30 gm PO UD PRN; Protocol PRN Reason: Hypoglycemia Protocol Stop: 08/18/20 20:15 Potassium Chloride/Sodium Chloride (Normal Saline W/20 Meq Kcl) 20 meq in 1,000 mls @ 75 mls/hr IV .[id number] [facility] Stop: 08/18/20 17:33 Last Admin: 07/21/20 10:25 Dose: 75 mls/hr Documented by: Pantoprazole Sodium 40 mg/ (Dextrose) 100 mls @ 20 mls/hr IV Q5H [facility] Stop: 08/18/20 20:44 Last Admin: 07/21/20 10:35 Dose: 8 mg/hr, 20 mls/hr Documented by: Insulin Aspart (Insulin Aspart 100 Units/Ml 3 Ml Pen) 0 units SC ACHS [facility] Stop: 08/18/20 20:59 Last Admin: 07/21/20 11:51 Dose: 3 units Documented by: Insulin Glargine (Insulin Glargine Solostar 100 Units/Ml 3 Ml Pen) 8 units SC DAILY [facility] Stop: 08/20/20 08:59 Last Admin: 07/21/20 08:37 Dose: Not Given Documented by: Levothyroxine Sodium (Levothyroxine Sodium 50 Mcg Tablet) 50 mcg PO DAILYBB [facility] Stop: 08/19/20 06:29 Last Admin: 07/21/20 05:46 Dose: 50 mcg Documented by: Metoprolol Tartrate (Metoprolol Tartrate 25 Mg Tab) 75 mg PO BID [facility] Stop: 08/19/20 08:59 Last Admin: 07/21/20 08:25 Dose: 75 mg Documented by: Metoprolol Tartrate (Metoprolol Tartrate 1 Mg/Ml Vial) 5 mg IV Q6H PRN PRN Reason: tachycardia Stop: 08/18/20 20:15 Miscellaneous (Carbohydrates For Hypoglycemia ) 15 - 30 gm PO UD PRN PRN Reason: Hypoglycemia Protocol Stop: 08/18/20 20:15 Miscellaneous Information (Pharmacy Glycemic Mgmt Consult) 1 ea N/A UD PRN; Protocol PRN Reason: Consult Stop: 08/18/20 20:26 Rosuvastatin Calcium (Rosuvastatin Calcium 10 Mg Tab) 10 mg PO HS [facility] Stop: 08/18/20 20:59 Last Admin: 07/20/20 20:20 Dose: 10 mg Documented by: Timolol Maleate (Timolol Maleate 0.5% Op Soln 5 Ml Btl) 1 drops OPB QAM [facility] Stop: 08/19/20 08:59 Last Admin: 07/21/20 08:25 Dose: 1 drops Documented by:
[2020-07-21 14:04] LABS: Hematocrit (blood only) 40.5 % (37-47); Hemoglobin 13.2 g/dL (12.0-16.0); Mean Corpuscular Hemoglobin 29.9 pg (25-34); Mean Corpuscular Hgb Conc 32.6 g/dL (32-36); Mean Corpuscular Volume 91.6 fL (80-100); Mean Platelet Volume 9.9 fL (7.4-10.4); Platelet Count 337 K/uL (130-400); RDW Coefficient of Variation 15.2 % (11.5-14.5); RDW Standard Deviation 51.3 fL (36.4-46.3); Red Blood Count 4.42 M/uL (4.2-5.4); White Blood Count 5.33 K/uL (4.8-10.8)
[2020-07-21 14:47] LABS: BUN Creatinine Ratio 15.3 (10-20); Calcium 8.5 mg/dl (8.5-10.1); Est GFR (African American) 29.4 ml/min; Est GFR (Non-African American) 25.4 ml/min; Potassium 3.8 mmol/L (3.5-5.1)
--- NOTE | 2020-07-21 15:04 | Pharmacy Report ---
Pharmacy Glycemic Short Note 2 - Date of Service July 21, 2020 - Glycemic Short BSG Results (Last 24 hours): 07/20/20 07/20/20 07/21/20 15:56 20:19 07:36 Glucose POC Glucose 186 H 149 H 173 H 07/21/20 07/21/20 11:12 13:35 Glucose 152 H POC Glucose 150 H OUTPATIENT ANTIDIABETIC REGIMEN: * Tresiba 18 units HS, Novolog 5-10 units with breakfast, 7-15 units lunch/dinner + SSI * A1c 7.1% ASSESSMENT: 07/21 * Patient received only 5 units of insulin yesterday, all correctional * Fasting BSG 173 mg/dL - scheduled Lantus for this AM (50% of home dose d/t low BSG on arrival, decreased PO intake). Patient refused basal insulin this AM. Per nursing notes she will only take at bedtime (since she takes at HS at home) * Plan to add basal insulin on for tonight instead, PO intake remains on lower side so will start out low and titrate upward 07/20 * 85 year old with CKD III, hx of colectomy. Presenting with black stools - started on protonix drip. Also with nausea, decreased appetite/intake. BSGs on arrival in the 40s * Pharmacy consulted to help with glycemic management. Patient did not receive any insulin yesterday * Continues NPO status this AM - BSGs <140s - plan to continue Novolog for now * May add small Lantus scale for HS only if BSGs trending upward PLAN FOR INPATIENT GLYCEMIC CONTROL: * Hold outpatient oral diabetes medications * Basal insulin * Lantus 8 units HS * Bolus insulin * NovoLog per scale ACHS or Q6hrs while NPO * Goal Range: Low 120 mg/dL - High 160 mg/dL * Correction Factor: 45 mg/dL/unit * Nutritional / Prandial insulin per carb ratio of 1 unit per 15 grams CHO consumed PLAN FOR DISCHARGE: * A1c 7.1% - patient with lower BSGs on arrival, likely related to PO intake/nausea outpatient. Could consider dosage reduction of insulin at discharge if patient reports frequent hypoglycemia outpatient or if PO intake is minimal. Goal A1c ~8% reasonable for patient
[2020-07-21] MEDS: APIXABAN 2.5 MG TAB PO SCH (20:01)
[2020-07-21] MEDS: ROSUVASTATIN CALCIUM 10 MG TAB PO SCH (20:01)
[2020-07-22] MEDS: NSS + 20MEQ KCL 20 MEQ/1,000 ML BAG IV SCH ×2 (02:35→13:51)
[2020-07-22] MEDS: PANTOprazole 40 MG in DEXTROSE 5% 100 ML IV SCH ×2 (04:14→09:07)
[2020-07-22] MEDS: LEVOTHYROXINE SODIUM 50 MCG TABLET PO SCH (06:42)
[2020-07-22] MEDS: CALCITRIOL 0.25 MCG CAPSULE PO SCH (08:38)
[2020-07-22] MEDS: METOPROLOL TARTRATE 25 MG TAB PO SCH (08:38)
[2020-07-22] MEDS: TIMOLOL MALEATE 0.5% OP SOLN 5 ML BTL OPB SCH (08:39)
[2020-07-22] MEDS: INSULIN ASPART 100 UNITS/ML 3 ML PEN SC SCH ×2 (08:40→12:13)
[2020-07-22] MEDS: APIXABAN 2.5 MG TAB PO SCH (08:40)
[2020-07-22] MEDS ORDERED: PANTOprazole 40 MG TAB PO SCH (09:00)
[2020-07-22 09:26] LABS: Hematocrit (blood only) 39.5 % (37-47)
--- NOTE | 2020-07-22 09:43 | Hospitalist Progress Note ---
Date of Service July 22, 2020 Assessment & Plan (1) Weakness: (2) Melanotic stools: This is a 85-year-old female who has significant past medical history of CAD status post CABG x3 in 2004, chronic atrial fibrillation anticoagulated on Eliquis, T2DM, CKD stage III baseline creatinine 1.5, history of rectal CA status post colectomy with end colostomy 3 years prior, history of embolism and thrombosis of arteries of lower extremity in 2017 status post left lower extremity embolectomy/patch and angioplasty, HTN, history of breast cancer, history of tobacco abuse who presents to ED secondary to weakness and black stool x10 days. 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 No evidence for a bowel obstruction. Hgb 13.2 today , stable GI consulted - recommended to continue IV PPI infusion and then transition to twice daily for 1 to 2 months, then follow by daily PPI 40 mg indefinitely. Tolerated clear liquid diet and advanced diet as well Restarted anticoagulation (Eliquis) yesterday PM, as there were no signs of bleeding Will monitor H/H current hgb 13 - stable Continue monitor (3) Acute kidney injury superimposed on chronic kidney disease: Creatinine on admission 2.13 baseline creatinine 1.5 Received IVF Continue to hold diuretic Creatinine 1.7 today Urology consult, no intervention at this time, however will need outpatient follow-up Coninue monitor BMP (4) Hypokalemia: K 3.1 K replaced Current K 3.8 Continue monitor BMP (5) Atrial fibrillation: Chronic atrial fibrillation, currently RVR Likely in setting of dehydration underlying illness Continue Metoprolol tartrate 75 mg tartrate BID Held Eliquis, will resume now (6) CAD (coronary artery disease): hx of cabg x 3 continue metoprolol, crestor asymptomatic (7) Hypercalcemia: hyperparathyroidism follows Dr. Booker, corrected ca 11.1 pt is not on ca or vit D supplements She is on calcitriol continue with IVF, possibly in setting of dehydration repeat Ca 8.5 resume chlorthalidone when able (8) Diabetes mellitus, type 2: Insulin-dependent, well controlled Last A1c 6.2 on 05/10/2020 Continue Lantus/NovoLog per protocol Continue cuca BS (9) Hydronephrosis: CT abd/pelvis showed moderate right hydroureteronephrosis of uncertain etiology. No ureteral calculi identified. Caliber change of the distal right ureter raises the possibility of a stricture. Urology consulted - No acute surgical intervention at this time Consider stent placement and possible ureteral dilation outpatient Follow up with urology as outpt (10) Abnormal CT of the abdomen: History of rectal cancer status post resection with end colostomy CT abdomen pelvis reveals parastomal hernia with transverse colon, no bowel obstruction Surgery consulted No need for further surgical intervention or evaluation at the present time as per surgeon (11) DVT prophylaxis: SCD/teds Held Eliquis in setting of melenic stools, resumed Dispo: PCU Full code PCP: Dr. Carpenter Disposition - plan to discharge home w/ HH Admission and Anticipated Discharge Date Admission Date: July 19, 2020 Subjective Pt was seen and examined for follow up of dark stool/ concern for GI bleed Sitting up in bed with no distress. Pt reports feeling well. Her stools are no longer dark from the colostomy bag Denies any chest pain, shortness of breath, abdominal pain, palpitation dizziness and SOB Review of Systems Review of Systems: All systems reviewed & are unremarkable except as noted in HPI & below Constitutional: no fever and no chills Respiratory: no cough and no dyspnea Cardiovascular: no chest pain and no palpitations Gastrointestinal: no abdominal pain, no nausea and no vomiting Physical Exam Physical Exam: General- No acute distress Head- atraumatic Eyes- PERRL, EOMI, ENT- oropharynx clear Neck- supple, no JVD Lungs- clear to auscultation Heart- regular rhythm; no murmur Abdomen- normal bowel sounds, nontender, +colostomy bag Extremities- no calf tenderness, moves extremities Neuro- alert, oriented x 3; PERRL, EOMI; no facial palsy; no dysarthria, moves extremities Skin- warm & dry Results & Data Results & Data ([facility]) Vital Signs (Past 12 Hours) Vital Signs Temp Pulse Resp BP Pulse Ox 07/22/20 07:30 36.5 C 97 H 18 134/63 98 07/22/20 04:29 36.3 C L 96 H 22 142/74 H 99 07/21/20 23:43 36.6 C 66 18 110/71 97 Laboratory Results 07/22/20 07/22/20 07/21/20 Range/Units 09:09 07:24 20:28 WBC (4.8-10.8) K/uL RBC (4.2-5.4) M/uL Hgb 13.0 (12.0-16.0) g/dL Hct 39.5 (37-47) % MCV (80-100) fL MCH (25-34) pg MCHC (32-36) g/dL RDW Std Deviation (36.4-46.3) fL RDW Coeff of Kei (11.5-14.5) % Plt Count (130-400) K/uL MPV (7.4-10.4) fL Sodium (136-145) mmol/L Potassium (3.5-5.1) mmol/L Chloride (98-107) mmol/L Carbon Dioxide (21-32) mmol/L Anion Gap (3-11) BUN (7-18) mg/dl Creatinine (0.6-1.2) mg/dl Est Cr Clr Drug Dosing ml/min Est GFR ( Amer) ml/min Est GFR (Non-Af Amer) ml/min BUN/Creatinine Ratio (10-20) Glucose (70-99) mg/dl POC Glucose 168 H 170 H (70-99) mg/dl Calcium (8.5-10.1) mg/dl 07/21/20 07/21/20 07/21/20 Range/Units 16:25 13:35 13:35 WBC 5.33 (4.8-10.8) K/uL RBC 4.42 (4.2-5.4) M/uL Hgb 13.2 (12.0-16.0) g/dL Hct 40.5 (37-47) % MCV 91.6 (80-100) fL MCH 29.9 (25-34) pg MCHC 32.6 (32-36) g/dL RDW Std Deviation 51.3 H (36.4-46.3) fL RDW Coeff of Kei 15.2 H (11.5-14.5) % Plt Count 337 (130-400) K/uL MPV 9.9 (7.4-10.4) fL Sodium 140 (136-145) mmol/L Potassium 3.8 D (3.5-5.1) mmol/L Chloride 107 (98-107) mmol/L Carbon Dioxide 26 (21-32) mmol/L Anion Gap 7.0 (3-11) BUN 27 H (7-18) mg/dl Creatinine 1.77 H (0.6-1.2) mg/dl Est Cr Clr Drug Dosing 22.0 ml/min Est GFR ( Amer) 29.4 ml/min Est GFR (Non-Af Amer) 25.4 ml/min BUN/Creatinine Ratio 15.3 (10-20) Glucose 152 H (70-99) mg/dl POC Glucose 148 H (70-99) mg/dl Calcium 8.5 (8.5-10.1) mg/dl 07/21/20 Range/Units 11:12 WBC (4.8-10.8) K/uL RBC (4.2-5.4) M/uL Hgb (12.0-16.0) g/dL Hct (37-47) % MCV (80-100) fL MCH (25-34) pg MCHC (32-36) g/dL RDW Std Deviation (36.4-46.3) fL RDW Coeff of Kei (11.5-14.5) % Plt Count (130-400) K/uL MPV (7.4-10.4) fL Sodium (136-145) mmol/L Potassium (3.5-5.1) mmol/L Chloride (98-107) mmol/L Carbon Dioxide (21-32) mmol/L Anion Gap (3-11) BUN (7-18) mg/dl Creatinine (0.6-1.2) mg/dl Est Cr Clr Drug Dosing ml/min Est GFR ( Amer) ml/min Est GFR (Non-Af Amer) ml/min BUN/Creatinine Ratio (10-20) Glucose (70-99) mg/dl POC Glucose 150 H (70-99) mg/dl Calcium (8.5-10.1) mg/dl Medications Administered Current Inpatient Medications Acetaminophen (Acetaminophen 325 Mg Tab) 650 mg PO Q4H PRN PRN Reason: Pain or Fever Stop: 08/18/20 20:15 Apixaban (Apixaban 2.5 Mg Tab) 2.5 mg PO BID [facility] Stop: 08/20/20 20:59 Last Admin: 07/22/20 08:40 Dose: 2.5 mg Documented by: Calcitriol (Calcitriol 0.25 Mcg Capsule) 0.25 mcg PO DAILY [facility] Stop: 08/19/20 08:59 Last Admin: 07/22/20 08:38 Dose: 0.25 mcg Documented by: Dextrose (Dextrose 50% 50 Ml Syringe) 25 - 50 ml IV UD PRN; Protocol PRN Reason: Hypoglycemia Protocol Stop: 08/18/20 20:15 Glucagon (Glucagon For Inj 1 Mg Vial) 1 mg SQ UD PRN; Protocol PRN Reason: Hypoglycemia Protocol Stop: 08/18/20 20:15 Glucose (Glucose 10 Tabs/Tube) 4 - 8 tabs PO UD PRN; Protocol PRN Reason: Hypoglycemia Protocol Stop: 08/18/20 20:15 Glucose (Glucose 40% Gel 15 Gm Tube) 15 - 30 gm PO UD PRN; Protocol PRN Reason: Hypoglycemia Protocol Stop: 08/18/20 20:15 Potassium Chloride/Sodium Chloride (Normal Saline W/20 Meq Kcl) 20 meq in 1,000 mls @ 75 mls/hr IV .[id number] [facility] Stop: 08/18/20 17:33 Last Admin: 07/22/20 02:35 Dose: 75 mls/hr Documented by: Insulin Aspart (Insulin Aspart 100 Units/Ml 3 Ml Pen) 0 units SC ACHS [facility] Stop: 08/18/20 20:59 Last Admin: 07/22/20 08:40 Dose: 3 units Documented by: Insulin Glargine (Insulin Glargine Solostar 100 Units/Ml 3 Ml Pen) 8 units SC HS [facility] Stop: 08/20/20 20:59 Last Admin: 07/21/20 20:52 Dose: 8 units Documented by: Levothyroxine Sodium (Levothyroxine Sodium 50 Mcg Tablet) 50 mcg PO DAILYBB [facility] Stop: 08/19/20 06:29 Last Admin: 07/22/20 06:42 Dose: 50 mcg Documented by: Metoprolol Tartrate (Metoprolol Tartrate 25 Mg Tab) 75 mg PO BID [facility] Stop: 08/19/20 08:59 Last Admin: 07/22/20 08:38 Dose: 75 mg Documented by: Metoprolol Tartrate (Metoprolol Tartrate 1 Mg/Ml Vial) 5 mg IV Q6H PRN PRN Reason: tachycardia Stop: 08/18/20 20:15 Miscellaneous (Carbohydrates For Hypoglycemia ) 15 - 30 gm PO UD PRN PRN Reason: Hypoglycemia Protocol Stop: 08/18/20 20:15 Miscellaneous Information (Pharmacy Glycemic Mgmt Consult) 1 ea N/A UD PRN; Protocol PRN Reason: Consult Stop: 08/18/20 20:26 Pantoprazole Sodium (Pantoprazole 40 Mg Tab) 40 mg PO BID [facility] Stop: 08/21/20 08:59 Last Admin: 07/22/20 08:38 Dose: 40 mg Documented by: Rosuvastatin Calcium (Rosuvastatin Calcium 10 Mg Tab) 10 mg PO HS [facility] Stop: 08/18/20 20:59 Last Admin: 07/21/20 20:01 Dose: 10 mg Documented by: Timolol Maleate (Timolol Maleate 0.5% Op Soln 5 Ml Btl) 1 drops OPB QAM [facility] Stop: 08/19/20 08:59 Last Admin: 07/22/20 08:39 Dose: 1 drops Documented by:
--- NOTE | 2020-07-22 10:03 | Pharmacy Report ---
Pharmacy Glycemic Short Note 2 - Date of Service July 22, 2020 - Glycemic Short BSG Results (Last 24 hours): 07/21/20 07/21/20 07/21/20 11:12 13:35 16:25 Glucose 152 H POC Glucose 150 H 148 H 07/21/20 07/22/20 20:28 07:24 Glucose POC Glucose 170 H 168 H OUTPATIENT ANTIDIABETIC REGIMEN: * Tresiba 18 units HS, Novolog 5-10 units with breakfast, 7-15 units lunch/dinner + SSI * A1c 7.1% ASSESSMENT: 07/22 * Patient received total of 20 units of insulin yesterday, of which 8 units were basal insulin (started at ~50% of home dose d/t low BSGs on arrival, decreased PO intake) * Fasting BSG 168 mg/dL - plan to titrate up basal insulin more for tonight * Continue same CF/CR 07/21 * Patient received only 5 units of insulin yesterday, all correctional * Fasting BSG 173 mg/dL - scheduled Lantus for this AM (50% of home dose d/t low BSG on arrival, decreased PO intake). Patient refused basal insulin this AM. Per nursing notes she will only take at bedtime (since she takes at HS at home) * Plan to add basal insulin on for tonight instead, PO intake remains on lower side so will start out low and titrate upward 07/20 * 85 year old with CKD III, hx of colectomy. Presenting with black stools - started on protonix drip. Also with nausea, decreased appetite/intake. BSGs on arrival in the 40s * Pharmacy consulted to help with glycemic management. Patient did not receive any insulin yesterday * Continues NPO status this AM - BSGs <140s - plan to continue Novolog for now * May add small Lantus scale for HS only if BSGs trending upward PLAN FOR INPATIENT GLYCEMIC CONTROL: * Hold outpatient oral diabetes medications * Basal insulin * Lantus 8-12 units HS * Bolus insulin * NovoLog per scale ACHS or Q6hrs while NPO * Goal Range: Low 120 mg/dL - High 160 mg/dL * Correction Factor: 45 mg/dL/unit * Nutritional / Prandial insulin per carb ratio of 1 unit per 15 grams CHO consumed PLAN FOR DISCHARGE: * A1c 7.1% - patient with lower BSGs on arrival, likely related to PO intake/nausea outpatient. Could consider dosage reduction of insulin at discharge if patient reports frequent hypoglycemia outpatient or if PO intake is minimal. Goal A1c ~8% reasonable for patient
--- NOTE | 2020-07-22 10:10 | Surgery Progress Note ---
Date of Service July 22, 2020 Assessment & Plan (1) Parastomal hernia: Parastomal hernia is present but is not causing obstruction There is no pain or tenderness Colostomy is functioning Do not feel that there is any need for surgical intervention at this time We will sign off. Please let us know if there is anything else we can do to be of service. Admission and Anticipated Discharge Date Admission Date: July 19, 2020 Subjective Denies abdominal pain Colostomy is functioning Had bowel movement yesterday and gas today Denies nausea and vomiting Tolerated diet Physical Exam Gastrointestinal (Abdomen): Inspection/Auscultation: normal bowel sounds; abdomen not distended Percussion/Palpation: abdomen soft; abdomen nontender Results & Data ([facility]) Vital Signs (Past 12 Hours) Vital Signs Temp Pulse Resp BP Pulse Ox 07/22/20 07:30 36.5 C 97 H 18 134/63 98 07/22/20 04:29 36.3 C L 96 H 22 142/74 H 99 07/21/20 23:43 36.6 C 66 18 110/71 97 Laboratory Results 07/22/20 07/22/20 07/21/20 Range/Units 09:09 07:24 20:28 WBC (4.8-10.8) K/uL RBC (4.2-5.4) M/uL Hgb 13.0 (12.0-16.0) g/dL Hct 39.5 (37-47) % MCV (80-100) fL MCH (25-34) pg MCHC (32-36) g/dL RDW Std Deviation (36.4-46.3) fL RDW Coeff of Kei (11.5-14.5) % Plt Count (130-400) K/uL MPV (7.4-10.4) fL Sodium (136-145) mmol/L Potassium (3.5-5.1) mmol/L Chloride (98-107) mmol/L Carbon Dioxide (21-32) mmol/L Anion Gap (3-11) BUN (7-18) mg/dl Creatinine (0.6-1.2) mg/dl Est Cr Clr Drug Dosing ml/min Est GFR ( Amer) ml/min Est GFR (Non-Af Amer) ml/min BUN/Creatinine Ratio (10-20) Glucose (70-99) mg/dl POC Glucose 168 H 170 H (70-99) mg/dl Calcium (8.5-10.1) mg/dl 07/21/20 07/21/20 07/21/20 Range/Units 16:25 13:35 13:35 WBC 5.33 (4.8-10.8) K/uL RBC 4.42 (4.2-5.4) M/uL Hgb 13.2 (12.0-16.0) g/dL Hct 40.5 (37-47) % MCV 91.6 (80-100) fL MCH 29.9 (25-34) pg MCHC 32.6 (32-36) g/dL RDW Std Deviation 51.3 H (36.4-46.3) fL RDW Coeff of Kei 15.2 H (11.5-14.5) % Plt Count 337 (130-400) K/uL MPV 9.9 (7.4-10.4) fL Sodium 140 (136-145) mmol/L Potassium 3.8 D (3.5-5.1) mmol/L Chloride 107 (98-107) mmol/L Carbon Dioxide 26 (21-32) mmol/L Anion Gap 7.0 (3-11) BUN 27 H (7-18) mg/dl Creatinine 1.77 H (0.6-1.2) mg/dl Est Cr Clr Drug Dosing 22.0 ml/min Est GFR ( Amer) 29.4 ml/min Est GFR (Non-Af Amer) 25.4 ml/min BUN/Creatinine Ratio 15.3 (10-20) Glucose 152 H (70-99) mg/dl POC Glucose 148 H (70-99) mg/dl Calcium 8.5 (8.5-10.1) mg/dl 07/21/20 Range/Units 11:12 WBC (4.8-10.8) K/uL RBC (4.2-5.4) M/uL Hgb (12.0-16.0) g/dL Hct (37-47) % MCV (80-100) fL MCH (25-34) pg MCHC (32-36) g/dL RDW Std Deviation (36.4-46.3) fL RDW Coeff of Kei (11.5-14.5) % Plt Count (130-400) K/uL MPV (7.4-10.4) fL Sodium (136-145) mmol/L Potassium (3.5-5.1) mmol/L Chloride (98-107) mmol/L Carbon Dioxide (21-32) mmol/L Anion Gap (3-11) BUN (7-18) mg/dl Creatinine (0.6-1.2) mg/dl Est Cr Clr Drug Dosing ml/min Est GFR ( Amer) ml/min Est GFR (Non-Af Amer) ml/min BUN/Creatinine Ratio (10-20) Glucose (70-99) mg/dl POC Glucose 150 H (70-99) mg/dl Calcium (8.5-10.1) mg/dl (1) Parastomal hernia Obstruction and gangrene presence: without obstruction or gangrene Qualified Code(s): K43.5 - Parastomal hernia without obstruction or gangrene
--- NOTE | 2020-07-22 12:35 | Discharge Summary ---
Date of Service July 22, 2020 Admission HPI Per Admitting Provider Chief Complaint: Weakness and black stools x10 days. Primary Care Provider: Moe Carpenter MD This is a 85-year-old female who has significant past medical history of CAD status post CABG x3 in 2003, chronic atrial fibrillation anticoagulated on Eliquis, T2DM, CKD stage III baseline creatinine 1.5, history of rectal CA status post colectomy with end colostomy 3 years prior, history of embolism and thrombosis of arteries of lower extremity in 2017 status post left lower extremity embolectomy/patch and angioplasty, HTN, history of breast cancer, history of tobacco abuse who presents to ED secondary to weakness and black stool x10 days. She elicits over the last 10 days to becoming increasingly more weak and noticing frequent loose black stool in her colostomy. She also has nausea, decreased appetite and overall decreased intake. She is fully vaccinated for the coronavirus. She denies any recent illness. She denies any fever, chills, sweats, lightheadedness, dizziness, chest pain, shortness of breath, RAINEY, palpitations, abdominal pain, dysuria and hematochezia. Starting today she noticed decreased ability to urinate but also states, "I have not been eating much." She denies any dysuria or hematuria. She describes her stools as being dark black. She does have history of In ED patient was hemodynamically stable, mildly tachycardic during my evaluation with heart rates in the low 100s. Her H&H was stable at 15.7 and 45.9, BUN 43, creatinine 2.13, K3.1, chloride 97, BUN 43, creatinine 2.13, corrected calcium 11.1. chest x-ray notable for cardiomegaly without acute process. 1. Moderate right hydroureteronephrosis of uncertain etiology. No ureteral calculi identified. Caliber change of the distal right ureter raises the possibility of a stricture. 2. Postoperative findings within the distal colon and rectum with descending colostomy with parastomal hernia which contains a portion of the transverse colon. No evidence for a bowel obstruction. In ED she received Protonix bolus, 10meq IV KCl and IVF. Admission Exam Per Admitting Provider Constitutional: WD/WN, vitals as above, NAD, sitting up in bed, pleasant, conversing easily Head: Normocephalic, Atraumatic Eyes: PERRL, conjunctivae normal, anicteric sclerae ENMT: external ear and nose normal, oropharynx normal Neck: trachea midline, no thyromegaly normal visual inspection Respiratory: normal respiratory effort, lungs clear to auscultation, no wheeze, rales, rhonchi. Normal insp/exp effort, no accessory muscle use Cardiovascular: Irregular rate, irregular rhythm, no murmur, no edema Vessels: no JVD or carotid bruit Chest: normal inspection of chest Abdomen: normal bowel sounds, soft, nontender, no hepatosplenomegaly , colostomy left lower quadrant Musculoskeletal: no cyanosis or clubbing, extremities motor strength 5/5 Skin: no rashes, warm and dry normal turgor Neurologic: PERRL, EOMI, accommodation nl, no face palsy, no dysarthria CN's II-XI intact bilaterally and moves all extremities Psychiatric: A+Ox3, euthymic affect Lymphatic: no cervical or axillary lymphadenopathy : deferred Principal Diagnosis Melanotic stools, presumed GI bleed Hydronephrosis HALI on CKD Discharge Exam General- No acute distress Head- atraumatic Eyes- PERRL, EOMI, ENT- oropharynx clear Neck- supple, no JVD Lungs- clear to auscultation Heart- regular rhythm; no murmur Abdomen- normal bowel sounds, nontender, +colostomy bag Extremities- no calf tenderness, moves extremities Neuro- alert, oriented x 3; PERRL, EOMI; no facial palsy; no dysarthria, moves extremities Skin- warm & dry Discharge Data Allergies Allergy/AdvReac Type Severity Reaction Status Date / Time iodine Allergy Intermediate Itching Verified 07/19/20 16:22 lisinopril Allergy Unknown Unknown Verified 07/19/20 16:22 ondansetron Allergy Unknown Unknown Verified 07/19/20 16:22 Sulfa (Sulfonamide Allergy Unknown Itching Verified 07/19/20 16:22 Antibiotics) Consultations 07/19/20 17:01 Consult Gastroenterology Routine Consult Urology Routine 07/19/20 17:09 ED Decision to Admit Stat 07/19/20 17:43 Consult General Surgery Routine Ordered Studies 07/19/20 14:05 CT abd pelvis wo con Stat IMPRESSION: 1. Moderate right hydroureteronephrosis of uncertain etiology. No ureteral calculi identified. Caliber change of the distal right ureter raises the possibility of a stricture. 2. Postoperative findings within the distal colon and rectum with descending colostomy with parastomal hernia which contains a portion of the transverse colon. No evidence for a bowel obstruction. 3. Mild groundglass opacities within the right middle lobe which could reflect an infectious process or atelectasis. Hospital Course (1) Weakness: (2) Melanotic stools: This is a 85-year-old female who has significant past medical history of CAD status post CABG x3 in 2003, chronic atrial fibrillation anticoagulated on Eliquis, T2DM, CKD stage III baseline creatinine 1.5, history of rectal CA status post colectomy with end colostomy 3 years prior, history of embolism and thrombosis of arteries of lower extremity in 2017 status post left lower extremity embolectomy/patch and angioplasty, HTN, history of breast cancer, history of tobacco abuse who presents to ED secondary to weakness and black stool x10 days. 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 No evidence for a bowel obstruction. Hgb 13.2 today , stable GI consulted - recommended to continue IV PPI infusion and then transition to twice daily for 1 to 2 months, then follow by daily PPI 40 mg indefinitely. Tolerated clear liquid diet and advanced diet as well Restarted anticoagulation (Eliquis) yesterday PM, as there were no signs of bleeding Will monitor H/H current hgb 13 - stable Continue monitor (3) Acute kidney injury superimposed on chronic kidney disease: Creatinine on admission 2.13 baseline creatinine 1.5 Received IVF Continue to hold diuretic Creatinine 1.7 today Urology consult, no intervention at this time, however will need outpatient follow-up Coninue monitor BMP (4) Hypokalemia: K 3.1 K replaced Current K 3.8 Continue monitor BMP (5) Atrial fibrillation: Chronic atrial fibrillation, currently RVR Likely in setting of dehydration underlying illness Continue Metoprolol tartrate 75 mg tartrate BID Held Eliquis, will resume now (6) CAD (coronary artery disease): hx of cabg x 3 continue metoprolol, crestor asymptomatic (7) Hypercalcemia: hyperparathyroidism follows Dr. Booker, corrected ca 11.1 pt is not on ca or vit D supplements She is on calcitriol continue with IVF, possibly in setting of dehydration repeat Ca 8.5 resume chlorthalidone when able (8) Diabetes mellitus, type 2: Insulin-dependent, well controlled Last A1c 6.2 on 05/10/2020 Continue Lantus/NovoLog per protocol Continue moitor BS (9) Hydronephrosis: CT abd/pelvis showed moderate right hydroureteronephrosis of uncertain etiology. No ureteral calculi identified. Caliber change of the distal right ureter raises the possibility of a stricture. Urology consulted - No acute surgical intervention at this time Consider stent placement and possible ureteral dilation outpatient Follow up with urology as outpt (10) Abnormal CT of the abdomen: History of rectal cancer status post resection with end colostomy CT abdomen pelvis reveals parastomal hernia with transverse colon, no bowel obstruction Surgery consulted No need for further surgical intervention or evaluation at the present time as per surgeon (11) DVT prophylaxis: SCD/teds Held Eliquis in setting of melenic stools, resumed Dispo: PCU Full code PCP: Dr. Carpenter Disposition - plan to discharge home w/ HH Total Time Total Time Spent Total Time Spent (In Minutes): 40 Total Time Includes: Examination of the Patient, Discharge Planning, Medication Reconciliation and 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 With Other Providers Discharge Plan Discharge Items Patient Disposition: Home - Home Health Services Reason For Visit: PRESUMED GIB Discharge Diagnosis: Melanotic stools, presumed GI bleed Hydronephrosis HALI on CKD Activity: Per Instructions section Non-emergency contact: Primary Care Provider Call non-emergency contact if: you have any medication questions and your symptoms worsen Follow-up/Referrals: Moe Carpenter MD [Primary Care Provider] - (Date & Time 07/26/2020 11:10 AM Provider Shanna Kenney, Department [facility] ) Diet: Carb Count or DM1 Addtl Attending Provider Instructions: Follow-up with your primary care doctor, the appointment was scheduled for you for July 26. At that time your blood work, H&H should be checked. As discussed before, you will need to be seen by urology in their office, you will be contacted about the appointment. Continue taking pantoprazole twice a day for next 1 to 2 months, then you should take this medication daily indefinitely. This is to protect your GI mucosa from bleeding. Pending Studies at Discharge: No Stand-Alone Forms: My [facility], Smoking Cessation Medications and DC Order Prescriptions: New pantoprazole 40 mg Tablet,Delayed Release (Dr/Ec) 40 mg PO BID 30 Days Qty: 60 RF: 0 Continued rosuvastatin 10 mg Tablet 10 mg PO HS Qty: 0 RF: 0 levothyroxine 50 mcg tablet 50 mcg PO QAM 90 Days Qty: 90 RF: 1 Prolia 60 mg/mL syringe 60 mg [id number] Qty: 1 RF: 1 Novolog U-100 Insulin aspart 100 unit/mL solution See Rx Instructions SUBCUT .COMPLEX Qty: 20 RF: 11 Tresiba U-100 Insulin 100 unit/mL solution 18 unit SQ HS Qty: 10 RF: 11 calcitriol 0.25 mcg capsule 0.25 mcg PO DAILY Qty: 90 RF: 3 chlorthalidone 25 mg tablet 12.5 mg PO DAILY Qty: 45 RF: 3 metoprolol tartrate 25 mg tablet 75 mg PO BID RF: 0 timolol maleate 0.5 % drops 1 drp OPB QAM RF: 0 apixaban 2.5 mg Tablet 2.5 mg PO BID RF: 0 Discharge Orders: Discharge Order (Routine); Ordered 07/22/20 Ordered By: Khoi Brennan/Other Patient Handouts: Hypoglycemia (Low Blood Sugar), Managing Type 2 Diabetes Admission Data Admit Date/Time: 07/19/20 17:01 Attending Provider: Khoi Henao Admit Provider: Jose Keyes Primary Care Provider: Moe Carpenter Other Providers: Armando Morelos ; Kam Guo ; Moe Cherry ; Jose Keyes ; Isaias Marsh
[2020-07-22] MEDS ORDERED: INSULIN GLARGINE SOLOSTAR 100 UNITS/ML 3 ML PEN SC SCH (21:00)
== END 2020-07-22 13:40 | disposition home health service (06) | DRG 378 ==
LOC: ED 13:15 → 2S 17:01 → SUATTDRO 17:01 → 2S 19:11

== ENCOUNTER 2020-08-06 06:17 | Inpatient (IN) ==
--- NOTE | 2020-08-06 06:55 | Emergency Department Note ---
History of Present Illness General Chief complaint: Vomiting Stated complaint: NAUSEA/VOMITTING Time Seen by Provider: 08/06/20 06:29 History of Present Illness Maximum Pain Intensity: 0 Lauren is an 85-year-old female with a history of colon cancer status post colonic resection with ostomy placement, chronic atrial fibrillation on Eliquis anticoagulation, hypothyroidism, coronary artery disease status post CABG, type 2 diabetes who presents today for evaluation of intractable nausea and vomiting that began around 130 this morning. Patient says for the most part, she was in her normal health up until last night. Around suppertime, which was last time she ate, she began feeling some discomfort around her right lower quadrants towards her ostomy bagdenied this feeling like a pain, but was just discomfort. She was able to get to bed without any problems. Then, beginning at 30 this morning, she said that she began feeling extremely nauseous and vomited multiple times. She said that the vomitus was brown in color, perhaps with a red tint. Said that this had continued till this morning, and the nausea has since gone away since receiving antiemetics from EMS. Notes that she has had normal ostomy output through last night. No recent changes in color that are been worrisome to her. Her ostomy bag is empty at present, and says that this is normal for her. She is worried "that this may represent a rupture." She denies any pain right now. Denies any chest pain, palpitations, shortness of breath. Does endorse being followed for atrial fibrillation for quite a long time. Endorses normal urine output without urinary symptoms otherwise. Home Medications Medication Instructions Recorded Confirmed Type timolol maleate 1 drp OPB QAM 11/23/18 08/06/20 History metoprolol tartrate 25 mg tablet 75 mg PO BID tab 11/19/19 08/06/20 History denosumab 60 mg/mL subcutaneous 60 mg SQ .[id number] #1 ml 03/31/20 08/06/20 Rx syringe levothyroxine 50 mcg tablet 50 mcg PO QAM 90 Days #90 tab 03/31/20 08/06/20 Rx calcitriol 0.25 mcg capsule 0.25 mcg PO DAILY #90 cap 06/08/20 08/06/20 Rx chlorthalidone 25 mg tablet 12.5 mg PO DAILY #45 tab 06/08/20 08/06/20 Rx Tresiba U-100 Insulin 100 unit/mL 18 unit SQ HS #10 ml NS 06/15/20 08/06/20 Rx subcutaneous solution insulin aspart U-100 100 unit/mL See Rx Instructions SUBCUT 06/15/20 08/06/20 Rx subcutaneous solution .COMPLEX #20 ml apixaban 2.5 mg PO BID 07/19/20 08/06/20 History pantoprazole 40 mg PO BID 30 Days #60 tab 07/22/20 08/06/20 Rx nitroglycerin 0.4 mg SUBLINGUAL UD 08/06/20 08/06/20 History rosuvastatin 10 mg PO HS 08/06/20 08/06/20 History Allergies Allergy/AdvReac Type Severity Reaction Status Date / Time iodine Allergy Intermediate Itching Verified 07/19/20 16:22 lisinopril Allergy Unknown Unknown Verified 07/19/20 16:22 ondansetron Allergy Unknown Unknown Verified 07/19/20 16:22 Sulfa (Sulfonamide Allergy Unknown Itching Verified 07/19/20 16:22 Antibiotics) Past Med/Surg History Medical History Atrial fibrillation paroxysmal CAD (coronary artery disease) s/p CABG x3 (2003) Diabetes mellitus, type 2 Embolism and thrombosis of arteries of lower extremity 2017/LLE embolectomy/patch angioplasty History of breast cancer History of upper gastrointestinal bleeding duodenal ulcer (2013) Hydronephrosis Hypercalcemia Hyperparathyroidism Hypertensive urgency Hypothyroidism Kidney stones Mitral stenosis borderline to mild per 11/2018 ECHO Osteoporosis Partial bowel obstruction 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 (2015), s/p chemo/current colostomy bag (lifelong) Small bowel obstruction resolved with NGT/no surgical intervention needed Vitamin D deficiency Surgical History H/O colostomy History of embolectomy LLE embolectomy/patch angioplasty (2016) Hx of cataract surgery right and left Hx of cystoscopy Hx of tonsillectomy Status post cardiac catheterization 2016 Status post colostomy Status post coronary artery bypass grafting 2003 Status post partial colectomy Status post partial mastectomy left lumpectomy Family History Other Diabetes Heart disease Social History Smoking Status: Former smoker Years Smoked: 49; Second Hand Exposure: No; Hx Alcohol Use: No Hx Substance Use: No Preferred Language: Wolof 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 Ability: Effective Floor Plan Adjuster Required: No Beliefs That Will Affect Care: None marital status: / Current Living Situation: Family Current Living Situation Comment: With brother per report; pt refusing assessment Feels Safe at Home: Declines to Answer Assistive Devices: None Review of Systems See HPI for pertinent positives & negatives. and A total of 10 systems reviewed and were otherwise negative Physical Exam Vital Signs Vital Signs - 24 hr 08/06/20 06:19 08/06/20 06:28 08/06/20 06:59 Temperature 36.7 C Temperature Source Oral Pulse Rate 118 H 110 H Pulse Rate [Right Finger] Pulse Rhythm Irregular Irregular Pulse Strength Normal Respiratory Rate 15 26 H Respiratory Effort / Characteristics Non-Labored Spontaneous Non-Labored Spontaneous Respiratory Depth Normal Normal Respiratory Pattern Regular Blood Pressure 117/94 Blood Pressure [Right Arm] Blood Pressure Mean 101 Blood Pressure Mean [Right Arm] Blood Pressure Position Sitting Pulse Oximetry 96 96 Oxygen Delivery Method Room Air Room Air Sepsis Recent Fever Within 48 Hours No Sepsis New/Unexplained Change in Mental Status No Sepsis Action Taken by Nursing No Action Required 08/06/20 07:04 Temperature Temperature Source Pulse Rate Pulse Rate [Right Finger] 110 H Pulse Rhythm Pulse Strength Respiratory Rate 24 Respiratory Effort / Characteristics Non-Labored Respiratory Depth Normal Respiratory Pattern Blood Pressure Blood Pressure [Right Arm] 104/71 Blood Pressure Mean Blood Pressure Mean [Right Arm] 82 Blood Pressure Position Pulse Oximetry 96 Oxygen Delivery Method Room Air Sepsis Recent Fever Within 48 Hours Sepsis New/Unexplained Change in Mental Status Sepsis Action Taken by Nursing Vital signs reviewed. General: Elderly, somewhat uncomfortable appearing 85 yo female, in no significant distress. HEENT: No scleral icterus, PERRLA, neck supple. Atraumatic. Cardiovascular: Regular rate and rhythm, no extra sounds. Pulmonary: Clear to auscultation bilaterally, normal work of breathing. Abdomen: Soft, tender with minimal distension, ostomy to LLQ moderate parastomal hernia, unable to reduce, little drainage in bag. Musculoskeletal: Atraumatic, no peripheral edema. Neurologic: Patient awake alert and oriented x 3 Skin: Warm, dry, no rash Course Administered Medications Heparin Sodium (Porcine) (Heparin Sod 5,000 Unit/0.5 Ml Vial) 5,000 units SQ Q12 [facility] Stop: 09/05/20 20:59 Last Admin: 08/09/20 21:33 Dose: 5,000 units Documented by: [id number] Admin: 08/09/20 09:09 Dose: 5,000 units Documented by: [id number] Admin: 08/08/20 20:39 Dose: 5,000 units Documented by: [id number] Admin: 08/08/20 09:15 Dose: 5,000 units Documented by: [id number] Admin: 08/07/20 22:28 Dose: 5,000 units Documented by: [id number] Admin: 08/07/20 09:30 Dose: 5,000 units Documented by: [id number] Admin: 08/06/20 22:10 Dose: 5,000 units Documented by: [id number] Hydromorphone HCl (Hydromorphone Inj 0.5 Mg/0.5 Ml Syr) 0.5 mg IV Q3HWA PRN PRN Reason: Pain 1-5 Stop: 08/21/20 14:33 Last Admin: 08/08/20 05:59 Dose: 0.5 mg Documented by: [id number] Admin: 08/07/20 23:53 Dose: 0.5 mg Documented by: [id number] Levothyroxine Sodium 25 mcg/ (Syringe) 1.25 mls @ 2 mls/min IV Q72H [facility]; Protocol Stop: 09/06/20 08:59 Last Admin: 08/07/20 09:30 Dose: 2 mls/min Documented by: [id number] Famotidine 20 mg/ Syringe 5 mls @ 2.5 mls/min IV DAILY [facility] Stop: 09/06/20 08:59 Last Admin: 08/09/20 09:07 Dose: 2.5 mls/min Documented by: [id number] Admin: 08/08/20 09:14 Dose: 2.5 mls/min Documented by: [id number] Admin: 08/07/20 09:37 Dose: 2.5 mls/min Documented by: [id number] Promethazine HCl 12.5 mg/ (Sodium Chloride) 50.5 mls @ 202 mls/hr IV Q6H PRN PRN Reason: Nausea And Vomiting Stop: 09/05/20 19:44 Last Infusion: 08/07/20 06:56 Dose: 0 mls/hr Documented by: [id number] Admin: 08/07/20 03:36 Dose: 202 mls/hr Documented by: [id number] Cefoxitin Sodium 1,000 mg/ (Dextrose) 60 mls @ 100 mls/hr IV Q12H [facility]; Protocol Stop: 08/18/20 00:00 Last Infusion: 08/09/20 12:45 Dose: 0 mls/hr Documented by: [id number] Admin: 08/09/20 12:07 Dose: 100 mls/hr Documented by: [id number] Infusion: 08/09/20 00:38 Dose: 0 mls/hr Documented by: [id number] Admin: 08/08/20 23:04 Dose: 100 mls/hr Documented by: [id number] Infusion: 08/08/20 14:31 Dose: 0 mls/hr Documented by: [id number] Admin: 08/08/20 12:49 Dose: 100 mls/hr Documented by: [id number] Infusion: 08/08/20 01:06 Dose: 0 mls/hr Documented by: [id number] Admin: 08/07/20 23:52 Dose: 100 mls/hr Documented by: [id number] Acetaminophen (Ofirmev) 1,000 mg in 100 mls @ 400 mls/hr IV Q6H PRN PRN Reason: Pain Stop: 08/12/20 03:59 Last Infusion: 08/09/20 22:09 Dose: 0 mls/hr Documented by: [id number] Admin: 08/09/20 21:41 Dose: 400 mls/hr Documented by: [id number] Dextrose/Sodium Chloride (D5w And Nss) 1,000 mls @ 100 mls/hr IV .Q10H [facility] Stop: 09/08/20 06:14 Last Admin: 08/09/20 16:17 Dose: 100 mls/hr Documented by: [id number] Infusion: 08/09/20 16:15 Dose: 100 mls/hr Documented by: [id number] Admin: 08/09/20 06:15 Dose: 100 mls/hr Documented by: [id number] Insulin Aspart (Insulin Aspart 100 Units/Ml 3 Ml Pen) 0 units SC Q6 [facility] Stop: 09/05/20 17:59 Last Admin: 08/09/20 17:49 Dose: 1 units Documented by: [id number] Cosigned by: [id number] Admin: 08/09/20 12:05 Dose: Not Given Documented by: [id number] Admin: 08/09/20 06:06 Dose: Not Given Documented by: [id number] Admin: 08/08/20 23:59 Dose: Not Given Documented by: [id number] Admin: 08/08/20 18:05 Dose: Not Given Documented by: [id number] Admin: 08/08/20 12:46 Dose: Not Given Documented by: [id number] Cosigned by: [id number] Admin: 08/08/20 06:02 Dose: Not Given Documented by: [id number] Admin: 08/08/20 00:00 Dose: Not Given Documented by: [id number] Admin: 08/07/20 17:00 Dose: Not Given Documented by: [id number] Cosigned by: [id number] Admin: 08/07/20 16:53 Dose: Not Given Documented by: [id number] Cosigned by: [id number] Admin: 08/07/20 06:16 Dose: Not Given Documented by: [id number] Cosigned by: [id number] Admin: 08/07/20 00:04 Dose: Not Given Documented by: [id number] Cosigned by: [id number] Admin: 08/06/20 18:17 Dose: Not Given Documented by: [id number] Insulin Glargine (Insulin Glargine Solostar 100 Units/Ml 3 Ml Pen) 0 units SC HS [facility]TE[facility]; Protocol Stop: 09/08/20 20:59 Last Admin: 08/09/20 21:34 Dose: 9 units Documented by: [id number] Cosigned by: [id number] Metoprolol Tartrate (Metoprolol Tartrate 1 Mg/Ml Vial) 5 mg IV Q6 [facility] Stop: 09/07/20 11:59 Last Admin: 08/09/20 17:52 Dose: 5 mg Documented by: [id number] Admin: 08/09/20 12:11 Dose: 5 mg Documented by: [id number] Admin: 08/09/20 06:09 Dose: 5 mg Documented by: [id number] Admin: 08/09/20 00:35 Dose: 5 mg Documented by: [id number] Admin: 08/08/20 18:06 Dose: 5 mg Documented by: [id number] Admin: 08/08/20 12:52 Dose: 5 mg Documented by: [id number] Discontinued Medications Benzocaine/Butamben/Tetracaine HCl (Benzocain/Tetraca/Butam [place] 200 Appln/20 Gm [place]) 1 appln EXT NOW STA Stop: 08/06/20 08:29 Last Admin: 08/06/20 08:40 Dose: 1 appln Documented by: [id number] Cefoxitin Sodium (Cefoxitin Sod 1 Gm Vial) Confirm Administered Dose 2,000 mg .ROUTE .STK-MED ONE Stop: 08/07/20 11:16 Last Admin: 08/07/20 13:10 Dose: 2,000 mg Documented by: [id number] Chlorthalidone (Chlorthalidone 25 Mg Tab) 12.5 mg PO DAILY [facility] Stop: 09/06/20 08:59 Last Admin: 08/07/20 09:23 Dose: Not Given Documented by: [id number] Diltiazem HCl (Diltiazem Hcl 5 Mg/Ml 5 Ml Vial) 10 mg IV NOW STA Stop: 08/06/20 16:34 Last Admin: 08/06/20 19:45 Dose: Not Given Documented by: [id number] Diltiazem HCl (Diltiazem Hcl 5 Mg/Ml 5 Ml Vial) Confirm Administered Dose 25 mg IV .STK-MED ONE Stop: 08/06/20 18:49 Last Admin: 08/06/20 19:45 Dose: Not Given Documented by: [id number] Hydromorphone HCl (Hydromorphone Inj 1 Mg/Ml Syringe) 1 mg IV Q3HWA PRN PRN Reason: Pain 6-10 Stop: 08/21/20 14:33 Last Admin: 08/07/20 17:06 Dose: 1 mg Documented by: [id number] Sodium Chloride (Nss) 250 mls @ 999 mls/hr IV .Q16M ONE Stop: 08/06/20 07:14 Last Infusion: 08/06/20 07:58 Dose: 0 mls/hr Documented by: [id number] Admin: 08/06/20 07:20 Dose: 999 mls/hr Documented by: [id number] Sodium Chloride (Nss) 500 mls @ 125 mls/hr IV .Q4H [facility] Stop: 09/05/20 07:44 Last Admin: 08/06/20 15:09 Dose: Not Given Documented by: [id number] Infusion: 08/06/20 12:45 Dose: 0 mls/hr Documented by: [id number] Admin: 08/06/20 08:40 Dose: 125 mls/hr Documented by: [id number] Sodium Chloride (Nss 1000ml) 250 mls @ 999 mls/hr IV .Q16M ONE Stop: 08/06/20 08:14 Last Infusion: 08/06/20 08:48 Dose: 0 mls/hr Documented by: [id number] Admin: 08/06/20 08:09 Dose: 999 mls/hr Documented by: [id number] Promethazine HCl (Phenergan) 12.5 mg in 50.5 mls @ 202 mls/hr IV NOW STA Stop: 08/06/20 08:13 Last Infusion: 08/06/20 08:47 Dose: 0 mls/hr Documented by: [id number] Admin: 08/06/20 08:11 Dose: 202 mls/hr Documented by: [id number] Acetaminophen (Ofirmev) 1,000 mg in 100 mls @ 400 mls/hr IV NOW STA Stop: 08/06/20 08:17 Last Infusion: 08/06/20 09:16 Dose: 0 mls/hr Documented by: [id number] Admin: 08/06/20 08:41 Dose: 400 mls/hr Documented by: [id number] Lactated Ringer's (Lr) 1,000 mls @ 80 mls/hr IV .[id number] [facility] Stop: 08/07/20 13:55 Last Infusion: 08/07/20 06:56 Dose: 0 mls/hr Documented by: [id number] Infusion: 08/06/20 21:00 Dose: 0 mls/hr Documented by: [id number] Admin: 08/06/20 15:45 Dose: 80 mls/hr Documented by: [id number] Diltiazem HCl 125 mg/ Dextrose 125 mls @ 5 mls/hr IV .Q24H [facility]; Protocol Stop: 09/05/20 16:44 Last Admin: 08/08/20 13:00 Dose: Not Given Documented by: [id number] Titration: 08/08/20 00:30 Dose: 0 mg/hr, 0 mls/hr Documented by: [id number] Cosigned by: [id number] Titration: 08/07/20 19:03 Dose: 5 mg/hr, 5 mls/hr Documented by: [id number] Cosigned by: [id number] Admin: 08/07/20 17:35 Dose: Not Given Documented by: [id number] Admin: 08/06/20 18:55 Dose: 5 mg/hr, 5 mls/hr Documented by: [id number] Cosigned by: [id number] Cefoxitin Sodium 2,000 mg/ (Dextrose) 60 mls @ 100 mls/hr IV NOW STA Stop: 08/07/20 11:28 Last Infusion: 08/07/20 17:11 Dose: 0 mls/hr Documented by: [id number] Admin: 08/07/20 11:08 Dose: 100 mls/hr Documented by: [id number] Acetaminophen (Ofirmev) 1,000 mg in 100 mls @ 400 mls/hr IV NOW ONE; Protocol Stop: 08/07/20 13:36 Last Admin: 08/07/20 14:41 Dose: Not Given Documented by: [id number] Lactated Ringer's (Lr) 1,000 mls @ 100 mls/hr IV .Q10H [facility] Stop: 09/06/20 14:33 Last Infusion: 08/09/20 06:28 Dose: 0 mls/hr Documented by: [id number] Admin: 08/08/20 23:44 Dose: 100 mls/hr Documented by: [id number] Infusion: 08/08/20 22:52 Dose: 100 mls/hr Documented by: [id number] Admin: 08/08/20 12:52 Dose: 100 mls/hr Documented by: [id number] Infusion: 08/08/20 12:37 Dose: 100 mls/hr Documented by: [id number] Infusion: 08/08/20 06:17 Dose: 100 mls/hr Documented by: [id number] Admin: 08/08/20 01:42 Dose: 80 mls/hr Documented by: [id number] Infusion: 08/08/20 01:42 Dose: 80 mls/hr Documented by: [id number] Admin: 08/07/20 14:53 Dose: 80 mls/hr Documented by: [id number] Albumin Human (Albumin 25%) 12.5 gm in 50 mls @ 50 mls/hr IV Q1H [facility] Stop: 08/08/20 02:29 Last Infusion: 08/08/20 04:05 Dose: 0 mls/hr Documented by: [id number] Admin: 08/08/20 01:42 Dose: 50 mls/hr Documented by: [id number] Infusion: 08/08/20 01:42 Dose: 50 mls/hr Documented by: [id number] Admin: 08/08/20 01:00 Dose: 50 mls/hr Documented by: [id number] Lactated Ringer's (Lr) 250 mls @ 999 mls/hr IV .Q16M ONE Stop: 08/08/20 00:37 Last Infusion: 08/08/20 01:16 Dose: 0 mls/hr Documented by: [id number] Admin: 08/08/20 00:59 Dose: 999 mls/hr Documented by: [id number] Lactated Ringer's (Lr) 250 mls @ 999 mls/hr IV .Q16M ONE Stop: 08/08/20 02:40 Last Infusion: 08/08/20 04:05 Dose: 0 mls/hr Documented by: [id number] Admin: 08/08/20 02:57 Dose: 999 mls/hr Documented by: [id number] Lactated Ringer's (Lr) 500 mls @ 999 mls/hr IV .Q31M ONE Stop: 08/08/20 06:39 Last Infusion: 08/08/20 06:57 Dose: 0 mls/hr Documented by: [id number] Admin: 08/08/20 06:19 Dose: 999 mls/hr Documented by: [id number] Acetaminophen (Ofirmev) 1,000 mg in 100 mls @ 400 mls/hr IV Q8H [facility] Stop: 08/11/20 15:59 Last Admin: 08/08/20 17:42 Dose: Not Given Documented by: [id number] Albumin Human (Albumin 25%) 12.5 gm in 50 mls @ 50 mls/hr IV Q1H [facility] Stop: 08/08/20 16:59 Last Infusion: 08/08/20 17:41 Dose: 0 mls/hr Documented by: [id number] Admin: 08/08/20 16:16 Dose: 50 mls/hr Documented by: [id number] Infusion: 08/08/20 16:16 Dose: 50 mls/hr Documented by: [id number] Admin: 08/08/20 15:24 Dose: 50 mls/hr Documented by: [id number] Acetaminophen (Ofirmev) 65 mls @ 260 mls/hr IV Q6H PRN PRN Reason: Pain Last Infusion: 08/08/20 22:56 Dose: 0 mls/hr Documented by: [id number] Admin: 08/08/20 22:16 Dose: 260 mls/hr Documented by: [id number] Insulin Glargine (Insulin Glargine Solostar 100 Units/Ml 3 Ml Pen) 0 units SC HS CORTEZ; Protocol Stop: 09/05/20 20:59 Last Admin: 08/06/20 22:11 Dose: 9 units Documented by: [id number] Cosigned by: [id number] Insulin Glargine (Insulin Glargine Solostar 100 Units/Ml 3 Ml Pen) 6 units SC ONE ONE; Protocol Stop: 08/07/20 22:01 Last Admin: 08/07/20 22:26 Dose: 6 units Documented by: [id number] Cosigned by: [id number] Insulin Glargine (Insulin Glargine Solostar 100 Units/Ml 3 Ml Pen) 0 units SC HS CORTEZ; Protocol Stop: 08/08/20 21:01 Last Admin: 08/08/20 20:26 Dose: Not Given Documented by: [id number] Lidocaine HCl (Lidocaine 2% Jelly 5 Ml Tube) 1 ml EXT ONCE ONE Stop: 08/07/20 09:25 Last Admin: 08/07/20 10:20 Dose: 1 ml Documented by: [id number] Metoprolol Tartrate (Metoprolol Tartrate 1 Mg/Ml Vial) 5 mg IV NOW STA Stop: 08/06/20 08:00 Last Admin: 08/06/20 08:40 Dose: 5 mg Documented by: [id number] Metoprolol Tartrate (Metoprolol Tartrate 1 Mg/Ml Vial) 2.5 mg IV Q6H [facility] Stop: 09/05/20 14:59 Last Admin: 08/06/20 15:06 Dose: Not Given Documented by: [id number] Metoprolol Tartrate (Metoprolol Tartrate 1 Mg/Ml Vial) Confirm Administered Dose 5 mg IV .STK-MED ONE Stop: 08/06/20 14:41 Last Increment: 08/06/20 14:42 Dose: 2.5 mg Documented by: [id number] Metoprolol Tartrate (Metoprolol Tartrate 1 Mg/Ml Vial) Confirm Administered Dose 5 mg IV .STK-MED ONE Stop: 08/08/20 09:10 Last Admin: 08/08/20 09:14 Dose: 5 mg Documented by: [id number] Morphine Sulfate (Morphine Sulfate 2 Mg/Ml [place]) 2 mg IV NOW STA Stop: 08/06/20 08:04 Last Admin: 08/06/20 08:09 Dose: 2 mg Documented by: [id number] Rosuvastatin Calcium (Rosuvastatin Calcium 10 Mg Tab) 10 mg PO HS [facility]TEZ Stop: 09/05/20 20:59 Last Admin: 08/06/20 21:25 Dose: Not Given Documented by: [id number] Medical Decision Making Differential Diagnosis Gastroenteritis, food borne illness, infections, appendicitis, diverticulitis, inflammatory bowel disease, obstruction, GI bleed, biliary pathology, volvulus, as well as other pathologies. Medical Records Attestation: I reviewed the patient's medical records. Home Medications Current Medication List: was personally reviewed by me Laboratory Data Attestation: I reviewed the patient's lab results. Result diagrams: 08/09/20 06:06 08/09/20 06:06 Lab Results 08/06/20 08/06/20 08/06/20 Range/Units 06:33 06:33 07:50 WBC 8.30 (4.8-10.8) K/uL RBC 4.70 (4.2-5.4) M/uL Hgb 14.1 (12.0-16.0) g/dL Hct 43.9 (37-47) % MCV 93.4 (80-100) fL MCH 30.0 (25-34) pg MCHC 32.1 (32-36) g/dL RDW Std Deviation 52.7 H (36.4-46.3) fL RDW Coeff of Kei 15.3 H (11.5-14.5) % Plt Count 286 (130-400) K/uL MPV 10.4 (7.4-10.4) fL Immature Gran % (Auto) 0.1 % Neut % (Auto) 86.7 % Lymph % (Auto) 6.6 % [place] % (Auto) 5.8 % Eos % (Auto) 0.7 % Baso % (Auto) 0.1 % Neut # (Auto) 7.19 H (1.4-6.5) K/uL Lymph # (Auto) 0.55 L (1.2-3.4) K/uL [place] # (Auto) 0.48 (0.11-0.59) K/uL Eos # (Auto) 0.06 (0-0.5) K/uL Baso # (Auto) 0.01 (0-0.2) K/uL Immature Gran # (Auto) 0.01 (0.00-0.02) K/uL Sodium 137 (136-145) mmol/L Potassium 4.4 (3.5-5.1) mmol/L Chloride 103 (98-107) mmol/L Carbon Dioxide 30 (21-32) mmol/L Anion Gap 4.0 (3-11) BUN 25 H (7-18) mg/dl Creatinine 1.88 H (0.6-1.2) mg/dl Est Cr Clr Drug Dosing 20.8 ml/min Est GFR ( Amer) 27.3 ml/min Est GFR (Non-Af Amer) 23.6 ml/min BUN/Creatinine Ratio 13.2 (10-20) Glucose 187 H (70-99) mg/dl Calcium 9.8 (8.5-10.1) mg/dl Phosphorus 3.6 (2.5-4.9) mg/dl Magnesium 2.2 (1.8-2.4) mg/dl Total Bilirubin 0.7 (0.2-1) mg/dl AST 18 (15-37) U/L ALT 20 (12-78) U/L Alkaline Phosphatase 87 (45-117) U/L Troponin I < 0.015 (0-0.045) ng/ml Total Protein 8.6 H (6.4-8.2) gm/dl Albumin 3.2 L (3.4-5.0) gm/dl Globulin 5.4 H (2.5-4.0) gm/dl Albumin/Globulin Ratio 0.6 L (0.9-2) Lipase 184 (73-393) U/L Imaging Data Radiologist's Impression: Abdomen/Pelvis CT 08/06/20 06:[address] WITHOUT CONTRAST CT DOSE: 841.47 mGycm HISTORY: intractable n/v, s/p colonic resection TECHNIQUE: Multiaxial CT images of the abdomen and pelvis were performed without contrast. A dose lowering technique was utilized adhering to the principles of ALARA. COMPARISON STUDY: Abdomen and pelvis CT 07/19/2020. FINDINGS: Mild interstitial thickening at the lung bases which is likely chronic. The heart remains enlarged. There are poststernotomy changes. No pneumo peritoneum. No pneumatosis. Multiple old compression deformities seen within the lower thoracic and lumbar spine, unchanged. Cholecystectomy. The unenhanced liver, spleen, and pancreas are unremarkable. Stable small bilateral adrenal gland nodules. Right renal hypodense lesions are also stable. These favor cysts. No left-sided hydronephrosis. There is moderate right hydroureteronephrosis to the level of the iliac vessels, unchanged. No obstructing stones identified. The bladder, uterus, bilateral adnexa are within normal limits. Status post partial colectomy with a midline colostomy. No change in the midline parastomal hernia containing fat and a short segment of the transverse colon.. Progressive dilatation of multiple loops of small bowel within the deep pelvis which are fluid-filled and measure up to 3.9 cm in diameter. Focal transition point within the small bowel at the deep pelvis demonstrating fecal contents suggesting of stasis. This is best seen on image 277. The stomach is mildly distended with gas and fluid. IMPRESSION: 1. Interval development of a small bowel obstruction with a focal transition point within the deep pelvis as described above. 2. Postoperative changes consistent with resection of the distal colon and rectum with a descending colostomy. Parastomal hernia remains unchanged. 3. Chronic moderate right hydronephrosis of undetermined etiology. Caliber change is noted within the distal right ureter at the level iliac vessels. This could represent a stricture. ACT 112: Negative or not required by law. Electronically signed by: Ridge Cabrera M.D. 08/06/2020 8:01 AM ECG Data Attestation: I personally reviewed and interpreted this ECG as follows: Indication: + abdominal pain Rate (beats per minute): 123 Rhythm: + atrial fibrillation (RVR) ECG Intervals/blocks: + Right Bundle branch block and + Normal QT-c ECG [place]: + Normal ECG ST segments: + Normal ST segments ECG Findings: no PACs and no PVCs Blood Pressure Blood Pressure Findings: Normal blood pressure Blood Pressure Disposition: did not require urgent referral MDM Narrative This pt was evaluated and appeared to be in some discomfort. IV access was obtained and lab work was drawn. An order for cardiac monitoring was placed and pt was noted to be in a rapid atrial fibrillation at 118 bpm. Pt was hydrated with NSS, given IV metoprolol for rate control. IV acetaminophen and IV zofran were given with minimal relief. CT imaging revealed SBO with pelvic transition point and a chronic parastomal hernia. IV morphine and phenergan were then administered. Pt was unable to tolerate NGT placement despite cetacaine spray. Pt's pain was much more comfortable and not vomiting. Medicine service was consulted. Pt will likely require surgical consultation. Impression & Plan SBO (small bowel obstruction), Atrial fibrillation with rapid ventricular response Discharge Plan Visit Data Chief Complaint: Vomiting Stated Complaint: NAUSEA/VOMITTING ED Provider: Lynda Whitaker ED Midlevel Provider: Mauro Fitzgerald. Discharge Problem: SBO (small bowel obstruction), Atrial fibrillation with rapid ventricular response Patient Disposition: Admitted As Inpatient Discharge Instructions Interventions: ED Discharge Assessment Last Done: 08/06/20 13:30
[2020-08-06] MEDS ORDERED: SODIUM CHLORIDE 0.9% 250 ML IV ONE (06:59)
[2020-08-06 07:16] LABS: Basophils # (auto) 0.01 K/uL (0-0.2); Basophils % (auto) 0.1 %; Eosinophils # (auto) 0.06 K/uL (0-0.5); Eosinophils % (auto) 0.7 %; Hematocrit (blood only) 43.9 % (37-47); Hemoglobin 14.1 g/dL (12.0-16.0); Immature Granulocytes # (auto) 0.01 K/uL (0.00-0.02); Immature Granulocytes % (auto) 0.1 %; Lymphocytes # (auto) 0.55 K/uL (1.2-3.4); Lymphocytes % (auto) 6.6 %; Mean Corpuscular Hgb Conc 32.1 g/dL (32-36); Mean Corpuscular Volume 93.4 fL (80-100); Mean Platelet Volume 10.4 fL (7.4-10.4); Monocytes # (auto) 0.48 K/uL (0.11-0.59); Monocytes % (auto) 5.8 %; Neutrophils # (auto) 7.19 K/uL (1.4-6.5); Neutrophils % (auto) 86.7 %; Platelet Count 286 K/uL (130-400); RDW Coefficient of Variation 15.3 % (11.5-14.5); RDW Standard Deviation 52.7 fL (36.4-46.3)
[2020-08-06 07:35] LABS: Blood Urea Nitrogen 25 mg/dl (7-18); Carbon Dioxide 30 mmol/L (21-32); Chloride 103 mmol/L (98-107); Sodium 137 mmol/L (136-145)
[2020-08-06 07:36] LABS: Alanine Aminotransferase 20 U/L (12-78); Albumin Level 3.2 gm/dl (3.4-5.0); BUN Creatinine Ratio 13.2 (10-20); Calcium 9.8 mg/dl (8.5-10.1); Creatinine Clr Calc Pharmacy 20.8 ml/min; Est GFR (African American) 27.3 ml/min; Est GFR (Non-African American) 23.6 ml/min; Glucose 187 mg/dl (70-99); Lipase 184 U/L (73-393)
[2020-08-06 07:48] LABS: Albumin Globulin Ratio 0.6 (0.9-2); Alkaline Phosphatase 87 U/L (45-117); Bilirubin,Total 0.7 mg/dl (0.2-1); Globulin 5.4 gm/dl (2.5-4.0); Phosphorus 3.6 mg/dl (2.5-4.9); Total Protein 8.6 gm/dl (6.4-8.2); Troponin I < 0.015 ng/ml (0-0.045)
[2020-08-06] MEDS ORDERED: PROMETHAZINE 12.5 MG/50.5 ML BAG IV STA (07:59)
[2020-08-06] MEDS ORDERED: SODIUM CHLORIDE 0.9% 1000ML 250 ML IV ONE (07:59)
[2020-08-06] MEDS ORDERED: METOPROLOL TARTRATE 1 MG/ML VIAL IV STA (07:59)
[2020-08-06] MEDS ORDERED: ACETAMINOPHEN 1,000 MG/100 ML VIAL IV STA (08:03)
[2020-08-06] MEDS ORDERED: MoRPHine SULFATE 2 MG/ML CARP IV STA (08:03)
--- NOTE | 2020-08-06 08:03 | CT Scan Report ---
ABDOMEN AND PELVIS CT WITHOUT CONTRAST CT DOSE: 841.47 mGycm HISTORY: intractable n/v, s/p colonic resection TECHNIQUE: Multiaxial CT images of the abdomen and pelvis were performed without contrast. A dose lo wering technique was utilized adhering to the principles of ALARA. COMPARISON STUDY: Abdomen and pelvis CT 07/19/2020. FINDINGS: Mild interstitial thickening at the lung bases which is likely chronic. The heart remains e nlarged. There are poststernotomy changes. No pneumoperitoneum. No pneumatosis. Multiple old compress ion deformities seen within the lower thoracic and lumbar spine, unchanged. Cholecystectomy. The unen hanced liver, spleen, and pancreas are unremarkable. Stable small bilateral adrenal gland nodules. Ri ght renal hypodense lesions are also stable. These favor cysts. No left-sided hydronephrosis. There i s moderate right hydroureteronephrosis to the level of the iliac vessels, unchanged. No obstructing s tones identified. The bladder, uterus, bilateral adnexa are within normal limits. Status post partial colectomy with a midline colostomy. No change in the midline parastomal hernia containing fat and a short segment of the transverse colon.. Progressive dilatation of multiple loops of small bowel withi n the deep pelvis which are fluid-filled and measure up to 3.9 cm in diameter. Focal transition point within the small bowel at the deep pelvis demonstrating fecal contents suggesting of stasis. This is best seen on image 277. The stomach is mildly distended with gas and fluid. IMPRESSION: 1. Interval development of a small bowel obstruction with a focal transition point within the deep pe lvis as described above. 2. Postoperative changes consistent with resection of the distal colon and rectum with a descending c olostomy. Parastomal hernia remains unchanged. 3. Chronic moderate right hydronephrosis of undetermined etiology. Caliber change is noted within the distal right ureter at the level iliac vessels. This could represent a stricture. ACT 112: Negative or not required by law. Electronically signed by: Ridge Cabrera M.D. 08/06/2020 8:01 AM
[2020-08-06] MEDS ORDERED: BENZOCAINE/TETRACAIN/BUTAM CAN 200 APPLN/20 GM CAN EXT STA (08:05)
[2020-08-06 08:25] LABS: Potassium 4.4 mmol/L (3.5-5.1)
[2020-08-06] MEDS ORDERED: BENZOCAIN/TETRACA/BUTAM SPRAY 200 APPLN/20 GM SPRY EXT STA (08:28)
[2020-08-06 08:30] LABS: Magnesium 2.2 mg/dl (1.8-2.4)
[2020-08-06] MEDS: SODIUM CHLORIDE 0.9% 500 ML IV SCH ×2 (08:40→15:09)
--- NOTE | 2020-08-06 10:23 | History & Physical Report ---
Date of Service August 06, 2020 Assessment & Plan (1) Small bowel obstruction: -Admit to [facility] with telemetry -CT reviewed: 1. Interval development of a small bowel obstruction with a focal transition point within the deep pelvis as described above. 2. Postoperative changes consistent with resection of the distal colon and rectum with a descending colostomy. Parastomal hernia remains unchanged. 3. Chronic moderate right hydronephrosis of undetermined etiology. Caliber change is noted within the distal right ureter at the level iliac vessels. This could represent a stricture. -Consulted general surgery, discussed with Dr. Onofre via phone -Retry to place NG tube, unsuccessful in the ER thus far, once in place LIS, hold for 30 minutes after meds via NGT. Will convert meds to IV in meantime. -GI consult for hx of GI bleed and NGT placement/management -N.p.o., cont IV fluids -IV antiemetics -Pain currently controlled, wonder if narcotic caused increased confusion, as the patient is although oriented and able to provide some information, requires prompting to answer questions, saying at some points, intermittently falling asleep during exam, avoid narcotics and use IV tylenol prn. -Recent GI bleed during admission earlier this month, monitor. (2) Parastomal hernia: - Chronic, Noted on CT (3) Rectal adenocarcinoma: - Rectal bleeding in Nov 2014 prompted colonoscopy, biopsy and ultimately diagnosis of colon cancer. 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 - Followed previously with [facility] and got xeloda and XRT. (4) CAD (coronary artery disease): - hx of bypass in 2003 (5) Atrial fibrillation: -Paroxysmal, Recurred in 2017. -Rate controlled, continue IV metoprolol 2.5 Q4H, and prn 5 mg IV with holding parameters and to call the provider. Pt n.p.o. - holding eliquis, switch to IV heparin (6) Hydronephrosis: -Reviewed on CT, appears to be chronic, moderate, right-sided, if worsening I's/O's or creatinine/BUN would consider nephrology/urology consultation - Follows with urology as outpt, next appt in August (7) Diabetes mellitus, type 2: -Reduce Tresiba to 9 units daily since n.p.o., ISS with Accu-Cheks, glycemic pharmacy consulted -Last A1c =7.1 on 07/20/20 (8) Hypothyroidism: -Convert home levothyroxine 50 mcg daily to 25 mcg daily, starting tomorrow (9) CKD (chronic kidney disease): - Cr. 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 - Due to NPO, will hold Eliquis and anticoagulation with heparin subq for hx of such, and CKD. DVT ppx: - teds, scds CODE: Full Code Dispo: From home, likely to remain in the hospital x 1-2 days History of Present Illness Primary Care Provider: Moe Carpenter MD This is an 85 yo F with PMHx of CAD s/p CABG x3 in 2004, chronic atrial fibrillation on Eliquis, T2DM, CKD stage III, history of rectal CA in 2014 s/p colectomy with end colostomy in 2015, history of embolism and thrombosis of arteries of lower extremity in 2017 s/p left lower extremity embolectomy/patch and angioplasty, HTN, history of breast cancer, history of tobacco abuse who presents with acute nausea and vomiting. Pt is confused during my visit. She knows that she is here in the ER because of the having abdominal pain which started last night, nausea and vomiting, but denies vomiting today. She has no pain currently, received morphine sulfate 2 mg IV in the ER. She cannot recall taking her morning medications. Patient denies eating or drinking anything yet today. At times she is singing during my exam, and at other times she seems to drift off to sleep. I attempted to call her brother however did not get an answer. In the ER she was given a total of 500 mL NS, followed by continuous IV fluids at 125 mL/h, Phenergan IV, Tylenol IV and Lopressor 5 mg IV. Allergies Allergy/AdvReac Type Severity Reaction Status Date / Time iodine Allergy Intermediate Itching Verified 07/19/20 16:22 lisinopril Allergy Unknown Unknown Verified 07/19/20 16:22 ondansetron Allergy Unknown Unknown Verified 07/19/20 16:22 Sulfa (Sulfonamide Allergy Unknown Itching Verified 07/19/20 16:22 Antibiotics) Home Medications Medication Instructions Recorded Confirmed Type timolol maleate 1 drp OPB QAM 11/23/18 08/06/20 History metoprolol tartrate 25 mg tablet 75 mg PO BID tab 11/19/19 08/06/20 History denosumab 60 mg/mL subcutaneous 60 mg SQ .[id number] #1 ml 03/31/20 08/06/20 Rx syringe levothyroxine 50 mcg tablet 50 mcg PO QAM 90 Days #90 tab 03/31/20 08/06/20 Rx calcitriol 0.25 mcg capsule 0.25 mcg PO DAILY #90 cap 06/08/20 08/06/20 Rx chlorthalidone 25 mg tablet 12.5 mg PO DAILY #45 tab 06/08/20 08/06/20 Rx Tresiba U-100 Insulin 100 unit/mL 18 unit SQ HS #10 ml NS 06/15/20 08/06/20 Rx subcutaneous solution insulin aspart U-100 100 unit/mL See Rx Instructions SUBCUT 06/15/20 08/06/20 Rx subcutaneous solution .COMPLEX #20 ml apixaban 2.5 mg PO BID 07/19/20 08/06/20 History pantoprazole 40 mg PO BID 30 Days #60 tab 07/22/20 08/06/20 Rx nitroglycerin 0.4 mg SUBLINGUAL UD 08/06/20 08/06/20 History rosuvastatin 10 mg PO HS 08/06/20 08/06/20 History Past Med/Surg History Medical History Atrial fibrillation paroxysmal CAD (coronary artery disease) s/p CABG x3 (2003) Diabetes mellitus, type 2 Embolism and thrombosis of arteries of lower extremity 2017/LLE embolectomy/patch angioplasty History of breast cancer History of upper gastrointestinal bleeding duodenal ulcer (2013) Hydronephrosis Hypercalcemia Hyperparathyroidism Hypertensive urgency Hypothyroidism Kidney stones Mitral stenosis borderline to mild per 11/2018 ECHO Osteoporosis Partial bowel obstruction 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 (2015), s/p chemo/current colostomy bag (lifelong) Small bowel obstruction resolved with NGT/no surgical intervention needed Vitamin D deficiency Surgical History H/O colostomy History of embolectomy LLE embolectomy/patch angioplasty (2017) Hx of cataract surgery right and left Hx of cystoscopy Hx of tonsillectomy Status post cardiac catheterization 2016 Status post colostomy Status post coronary artery bypass grafting 2003 Status post partial colectomy Status post partial mastectomy left lumpectomy Family History Other Diabetes Heart disease Social History Smoking Status: Former smoker Years Smoked: 49; Second Hand Exposure: No; Hx Alcohol Use: No Hx Substance Use: No Preferred Language: Russian 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 Ability: Effective Arc Trimmer Required: No Beliefs That Will Affect Care: None Current Living Situation: Family Current Living Situation Comment: With brother per report; pt refusing assessment Feels Safe at Home: Declines to Answer Assistive Devices: Walker Review of Systems Review of Systems: Unobtainable due to cognitive status Physical Exam Physical Exam: General: awake, alert, no apparent distress, obese with BMI 35.1 Head: Normocephalic, atraumatic ENT: PERRL, EOMI, no pharyngeal exudate, mucous membranes moist Chest: Clear to auscultation, on room air, no adventitious breath sounds Cardiac: Irregularly irregular, HR in the 110s, no murmur, no JVD, normal peripheral pulses, good capillary refill Abdominal: Absent bowel sounds x4 quadrants, colectomy in left lower quadrant, + distended, + tender to palpation in epigastric and left upper quadrant, + tympanic on percussion, no rebound or guarding Extremities: Normal inspection, no peripheral edema or erythema, calfs nontender to palpation, multiple hammertoes bilateral feet Skin: Diffuse areas of actinic keratoses over extremities Psych: Normal mood and affect Neuro: AAO x 3, strength intact bilaterally and rated 4/5, no motor deficits, speech is clear, no peripheral sensory deficits Results & Data Results & Data ([facility]) Vital Signs (Past 12 Hours) Vital Signs Temp Pulse Pulse Resp BP BP Pulse Ox 08/06/20 08:45 118 H 22 124/80 93 08/06/20 08:30 120 H 22 133/79 96 08/06/20 08:00 121 H 22 89/65 L 93 08/06/20 07:04 110 H 24 104/71 96 08/06/20 06:59 110 H 26 H 96 08/06/20 06:19 36.7 C 118 H 15 117/94 96 Laboratory Results Laboratory Results - last 24 hr 08/06/20 08/06/20 08/06/20 06:33 06:33 07:50 WBC 8.30 RBC 4.70 Hgb 14.1 Hct 43.9 MCV 93.4 MCH 30.0 MCHC 32.1 RDW Std Deviation 52.7 H RDW Coeff of Kei 15.3 H Plt Count 286 MPV 10.4 Immature Gran % (Auto) 0.1 Neut % (Auto) 86.7 Lymph % (Auto) 6.6 [place] % (Auto) 5.8 Eos % (Auto) 0.7 Baso % (Auto) 0.1 Neut # (Auto) 7.19 H Lymph # (Auto) 0.55 L [place] # (Auto) 0.48 Eos # (Auto) 0.06 Baso # (Auto) 0.01 Immature Gran # (Auto) 0.01 Sodium 137 Potassium 4.4 Chloride 103 Carbon Dioxide 30 Anion Gap 4.0 BUN 25 H Creatinine 1.88 H Est Cr Clr Drug Dosing 20.8 Est GFR ( Amer) 27.3 Est GFR (Non-Af Amer) 23.6 BUN/Creatinine Ratio 13.2 Glucose 187 H Calcium 9.8 Phosphorus 3.6 Magnesium 2.2 Total Bilirubin 0.7 AST 18 ALT 20 Alkaline Phosphatase 87 Troponin I < 0.015 Total Protein 8.6 H Albumin 3.2 L Globulin 5.4 H Albumin/Globulin Ratio 0.6 L Lipase 184 Diagnostic Findings Abdomen/Pelvis CT 08/06/20 06:[address] WITHOUT CONTRAST CT DOSE: 841.47 mGycm HISTORY: intractable n/v, s/p colonic resection TECHNIQUE: Multiaxial CT images of the abdomen and pelvis were performed without contrast. A dose lowering technique was utilized adhering to the principles of ALARA. COMPARISON STUDY: Abdomen and pelvis CT 07/19/2020. FINDINGS: Mild interstitial thickening at the lung bases which is likely chronic. The heart remains enlarged. There are poststernotomy changes. No pneumoperitoneum. No pneumatosis. Multiple old compression deformities seen within the lower thoracic and lumbar spine, unchanged. Cholecystectomy. The unenhanced liver, spleen, and pancreas are unremarkable. Stable small bilateral adrenal gland nodules. Right renal hypodense lesions are also stable. These favor cysts. No left-sided hydronephrosis. There is moderate right hydroureteronephrosis to the level of the iliac vessels, unchanged. No obstructing stones identified. The bladder, uterus, bilateral adnexa are within normal limits. Status post partial colectomy with a midline colostomy. No change in the midline parastomal hernia containing fat and a short segment of the transverse colon.. Progressive dilatation of multiple loops of small bowel within the deep pelvis which are fluid-filled and measure up to 3.9 cm in diameter. Focal transition point within the small bowel at the deep pelvis demonstrating fecal contents suggesting of stasis. This is best seen on image 277. The stomach is mildly distended with gas and fluid. IMPRESSION: 1. Interval development of a small bowel obstruction with a focal transition point within the deep pelvis as described above. 2. Postoperative changes consistent with resection of the distal colon and rectum with a descending colostomy. Parastomal hernia remains unchanged. 3. Chronic moderate right hydronephrosis of undetermined etiology. Caliber change is noted within the distal right ureter at the level iliac vessels. This could represent a stricture. ACT 112: Negative or not required by law. Electronically signed by: Ridge Cabrera M.D. 08/06/2020 8:01 AM ECG Additional Comments: 06-AUG-2020 06:57:23 [facility]-EDSTAT ROUTINE RETRIEVAL Atrial fibrillation with rapid ventricular response Right bundle branch block Abnormal ECG When compared with ECG of 19-JUL-2020 19:06, No significant change was found 25mm/s 10mm/mV 150Hz 9.0.9 12SL 241 GEORGI: 15 Referred by: REFERRED SELF Unconfirmed Vent. rate 123 BPM MT interval * ms QRS duration 136 ms QT/QTc 284/406 ms Code Status & VTE Plan Code Status Full code- discussed with patients brother via phone VTE Prophylaxis Plan VTE Prophylaxis will be ordered: Yes Supervising Physician Co-Signing Physician Notes Patient seen and examined with Lian Matos PA-C, please refer to her note above for further detail. Patient is currently lying in bed, in the ED, in no acute distress, quite somnolent. Reportedly received IV morphine, and now answering questions only when prompted. Currently says that her abdomen feels okay. Does not provide much history. Presented to the hospital due to nausea and vomiting and abdominal pain, CT scan concerning for small bowel obstruction. NG tube was attempted in the ED, however unsuccessful. Patient is lying in bed, in no acute distress, lungs are clear to auscultation bilaterally without any wheezing rhonchi or crackles. Heart sounds are slightly tachycardic in the 90s to low 100s. Abdomen is distended, with hypoactive bowel sounds, currently nontender to palpation. There are no lower extremity edema. She does move extremities spontaneously. Skin is warm, dry, well-perfused. Surgery and GI contacted. NG tube placement to be attempted again. IV fluids, close monitoring. Chelsie Henao MD (1) Parastomal hernia Obstruction and gangrene presence: without obstruction or gangrene Qualified Code(s): K43.5 - Parastomal hernia without obstruction or gangrene
--- NOTE | 2020-08-06 11:27 | Surgery Consultation ---
Date of Consultation August 06, 2020 Assessment & Plan (1) Small bowel obstruction: No acute abdominal findings. Moderate small bowel dilation in pelvis with area of transition; rather large parastomal hernia but not obstructing. Continue bowel rest, IVF and can hold on NG unless she has further N/V. Dr. Onofre will be following for the weekend. Dr. Onofre-I did see the patient in the emergency room-she is in no distress and is responsive. Her abdomen is mildly distended and has decreased bowel sounds- she has a loop colostomy in the center of the abdomen with a known parastomal hernia on CT. this hernia is not causing the obstruction-it appears it is small bowel in the pelvis which may be from adhesions/radiation enteritis Plan would be to attempt nonoperative management hopefully with NG decompression. If she does require operation it will be Difficult secondary to her prior surgery and apparent history of radiation. History of Present Illness History of Present Illness 85 y/o female with colostomy for rectal cancer developed N/V overnight. She started not feeling well after supper, she had waffles and marmalade. Has not had previous SBO. Feels better after medicated in ED. There was some difficulty placing NG but her N/V has resolved. She is on Eliquis for A-fib. Allergies Allergy/AdvReac Type Severity Reaction Status Date / Time iodine Allergy Intermediate Itching Verified 07/19/20 16:22 lisinopril Allergy Unknown Unknown Verified 07/19/20 16:22 ondansetron Allergy Unknown Unknown Verified 07/19/20 16:22 Sulfa (Sulfonamide Allergy Unknown Itching Verified 07/19/20 16:22 Antibiotics) Home Medications Medication Instructions Recorded Confirmed Type rosuvastatin 10 mg PO HS #0 03/14/16 08/06/20 History timolol maleate 1 drp OPB QAM 11/23/18 08/06/20 History metoprolol tartrate 25 mg tablet 75 mg PO BID tab 11/19/19 08/06/20 History denosumab 60 mg/mL subcutaneous 60 mg SQ .[id number] #1 ml 03/31/20 08/06/20 Rx syringe levothyroxine 50 mcg tablet 50 mcg PO QAM 90 Days #90 tab 03/31/20 08/06/20 Rx calcitriol 0.25 mcg capsule 0.25 mcg PO DAILY #90 cap 06/08/20 08/06/20 Rx chlorthalidone 25 mg tablet 12.5 mg PO DAILY #45 tab 06/08/20 08/06/20 Rx Tresiba U-100 Insulin 100 unit/mL 18 unit SQ HS #10 ml NS 06/15/20 08/06/20 Rx subcutaneous solution insulin aspart U-100 100 unit/mL See Rx Instructions SUBCUT 06/15/20 08/06/20 Rx subcutaneous solution .COMPLEX #20 ml apixaban 2.5 mg PO BID 07/19/20 08/06/20 History pantoprazole 40 mg PO BID 30 Days #60 tab 07/22/20 08/06/20 Rx nitroglycerin 0.4 mg SUBLINGUAL UD 08/06/20 08/06/20 History Patient History Medical History Atrial fibrillation paroxysmal CAD (coronary artery disease) s/p CABG x3 (2003) Diabetes mellitus, type 2 Embolism and thrombosis of arteries of lower extremity 2017/LLE embolectomy/patch angioplasty History of breast cancer History of upper gastrointestinal bleeding duodenal ulcer (2013) Hydronephrosis Hypercalcemia Hyperparathyroidism Hypertensive urgency Hypothyroidism Kidney stones Mitral stenosis borderline to mild per 11/2018 ECHO Osteoporosis Partial bowel obstruction 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 (2015), s/p chemo/current colostomy bag (lifelong) Small bowel obstruction resolved with NGT/no surgical intervention needed Vitamin D deficiency Surgical History H/O colostomy History of embolectomy LLE embolectomy/patch angioplasty (2016) Hx of cataract surgery right and left Hx of cystoscopy Hx of tonsillectomy Status post cardiac catheterization 2016 Status post colostomy Status post coronary artery bypass grafting 2003 Status post partial colectomy Status post partial mastectomy left lumpectomy Family History Other Diabetes Heart disease Social History Smoking Status: Former smoker Years Smoked: 49; Second Hand Exposure: No; Hx Alcohol Use: No Hx Substance Use: No Preferred Language: Albanian 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 Ability: Effective Muck Hauler Required: No Beliefs That Will Affect Care: None Current Living Situation: Family Feels Safe at Home: Yes Assistive Devices: Walker Review of Systems Constitutional: as per Subjective / HPI; no fever and no chills Gastrointestinal: + abdominal pain, + nausea and + vomiting; no change in bowel habits Physical Exam Constitutional: WD/WN, vitals as above ENMT: external ear and nose normal, oropharynx normal Respiratory: normal respiratory effort Cardiovascular: Rate/Rhythm: + tachycardic Gastrointestinal (Abdomen): Inspection/Auscultation: + abdomen distended (minimal), + visible herniation (parastomal) and + abdominal surgical scar Percussion/Palpation: + abdomen tender (mild generalized) and abdomen soft no ostomy output in bag [facility] Vital Signs (Past 12 Hours) Vital Signs Temp Pulse Pulse Resp BP BP Pulse Ox 08/06/20 11:02 115 H 16 92/63 L 94 08/06/20 10:24 98 H 18 107/68 94 08/06/20 08:45 118 H 22 124/80 93 08/06/20 08:30 120 H 22 133/79 96 08/06/20 08:00 121 H 22 89/65 L 93 08/06/20 07:04 110 H 24 104/71 96 08/06/20 06:59 110 H 26 H 96 08/06/20 06:19 36.7 C 118 H 15 117/94 96 PG Care Time/CCT Total # of Minutes Spent Total Time Spent with Patient: Total time spent is greater than 50% in coordination of care (as documented) at patient's floor/unit and/or counseling patient: Coding Level of Care Code 79235 Initial Inpt Care Lvl 1 Diagnoses Small bowel obstruction K56.609
[2020-08-06] MEDS ORDERED: CARBOHYDRATES FOR HYPOGLYCEMIA PO PRN (13:56)
[2020-08-06] MEDS ORDERED: ACETAMINOPHEN 10MG/ML PEDIATRIC DOSING IV PRN (13:56)
[2020-08-06] MEDS ORDERED: GLUCAGON FOR INJ 1 MG VIAL SQ PRN (13:56)
[2020-08-06] MEDS ORDERED: GLUCOSE 40% GEL 15 GM TUBE PO PRN (13:56)
[2020-08-06] MEDS ORDERED: DEXTROSE 50% 50 ML SYRINGE IV PRN (13:56)
[2020-08-06] MEDS ORDERED: GLUCOSE 10 TABS/TUBE PO PRN (13:56)
[2020-08-06] MEDS ORDERED: LACTATED RINGER'S 1,000 ML IV SCH (13:56)
[2020-08-06] MEDS ORDERED: METOPROLOL TARTRATE 1 MG/ML VIAL IV PRN (13:56)
[2020-08-06] MEDS ORDERED: PHARMACY GLYCEMIC MGMT CONSULT PRN (14:21)
--- NOTE | 2020-08-06 14:31 | Pharmacy Report ---
Pharmacy Glycemic Short Note 2 - Date of Service August 06, 2020 - Glycemic Short BSG Results (Last 24 hours): 08/06/20 06:33 Glucose 187 H OUTPATIENT ANTIDIABETIC REGIMEN: * Tresiba (insulin degludec) 18 units SQ HS * NovoLog with meals * 5-10 units with Breakfast * 7-15 units with Lunch and dinner * TDD ~ 68 units max * A1c = 7.1% on 07/20/20 ASSESSMENT: * 85yo T2DM female with excellent outpatient control per recent A1c * Pt is maintained on SQ basal bolus regimen as an outpatient. Outpatient regimen is weighted towards prandial insulin. Basal insulin dose should be OK to continue despite NPO but to be safe, typically 50-80% of basal insulin dose is given when NPO. Will set a scale this evening for basal insulin dose based on BSG; if BSG < 160 will give 505 and if BSG >160 will give ~80% . Pt NPO for SBO * Outpatient basal insulin is Tresiba (insulin degludec). This is non-formulary- will convert to Lantus which is a 1:1 conversion. * Will use a weight based CF/CR and titrate based on BSG trends. PLAN FOR INPATIENT GLYCEMIC CONTROL: * Basal insulin * Lantus 9-13 units SQ HS while NPO * BSG < 160 --> 9 units (50% of outpatient dose) * BSG 160 or above --> 13 units (~80% of outpatient dose) * Bolus insulin * NovoLog per scale ACHS or Q6hrs while NPO * Goal Range: Low 110 mg/dL - High 140 mg/dL * Correction Factor: 30 mg/dL/unit * Nutritional / Prandial insulin per carb ratio of 1 unit per 9 grams CHO consumed PLAN FOR DISCHARGE: * A1c is in goal range for patient based on age/co-morbidities. No changes needed to outpatient regimen unless patient is experiencing frequent hypoglycemia.
[2020-08-06] MEDS ORDERED: METOPROLOL TARTRATE 1 MG/ML VIAL IV ONE (14:40)
[2020-08-06] MEDS ORDERED: METOPROLOL TARTRATE 1 MG/ML VIAL IV SCH (15:00)
--- NOTE | 2020-08-06 15:41 | Electrocardiogram Report ---
Test Reason : Blood Pressure : / mmHG Vent. Rate : 123 BPM Atrial Rate : 141 BPM P-R Int : 000 ms QRS Dur : 136 ms QT Int : 284 ms P-R-T Axes : 000 104 -52 degrees QTc Int : 406 ms Atrial fibrillation with rapid ventricular response Right bundle branch block Abnormal ECG When compared with ECG of 19-JUL-2020 19:06, No significant change was found Confirmed by Matthew Bowman ([id number]) on 08/06/2020 3:41:00 PM Referred By: REFERRED SELF Confirmed By:Matthew Bowman
[2020-08-06] MEDS ORDERED: dilTIAZem HCl 5 MG/ML 5 ML VIAL IV STA (16:33)
[2020-08-06] MEDS ORDERED: STAT IV Infusion **Titration per Protocol STA (16:33)
--- NOTE | 2020-08-06 16:42 | Cardiology Consultation ---
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 We will restart her oral medications when she is able to but this will allow us to control her rates until her obstruction is resolved. History of Present Illness Reason for Consultation: Atrial fibrillation with rapid ventricular response Requesting Physician: Dr. Henao Attending Physician: Khoi Henao MD History of Present Illness The patient is an 85-year-old female who presented to [facility] today with complaints of acute nausea and vomiting. She was found to have a small bowel obstruction and she was admitted to telemetry. While on telemetry she was found to have atrial fibrillation with rapid ventricular response. She does have chronic A. fib but her rates were uncontrolled. Patient currently confused and unable to tolerate oral medications. Has been receiving IV metoprolol with minimal benefits. Currently patient is very lethargic, confused and cannot contribute to her history. Allergies Allergy/AdvReac Type Severity Reaction Status Date / Time iodine Allergy Intermediate Itching Verified 07/19/20 16:22 lisinopril Allergy Unknown Unknown Verified 07/19/20 16:22 ondansetron Allergy Unknown Unknown Verified 07/19/20 16:22 Sulfa (Sulfonamide Allergy Unknown Itching Verified 07/19/20 16:22 Antibiotics) Home Medications Medication Instructions Recorded Confirmed Type rosuvastatin 10 mg PO HS #0 03/14/16 08/06/20 History timolol maleate 1 drp OPB QAM 11/23/18 08/06/20 History metoprolol tartrate 25 mg tablet 75 mg PO BID tab 11/19/19 08/06/20 History denosumab 60 mg/mL subcutaneous 60 mg SQ .p8wukoms #1 ml 03/31/20 08/06/20 Rx syringe levothyroxine 50 mcg tablet 50 mcg PO QAM 90 Days #90 tab 03/31/20 08/06/20 Rx calcitriol 0.25 mcg capsule 0.25 mcg PO DAILY #90 cap 06/08/20 08/06/20 Rx chlorthalidone 25 mg tablet 12.5 mg PO DAILY #45 tab 06/08/20 08/06/20 Rx Tresiba U-100 Insulin 100 unit/mL 18 unit SQ HS #10 ml NS 06/15/20 08/06/20 Rx subcutaneous solution insulin aspart U-100 100 unit/mL See Rx Instructions SUBCUT 06/15/20 08/06/20 Rx subcutaneous solution .COMPLEX #20 ml apixaban 2.5 mg PO BID 07/19/20 08/06/20 History pantoprazole 40 mg PO BID 30 Days #60 tab 07/22/20 08/06/20 Rx nitroglycerin 0.4 mg SUBLINGUAL UD 08/06/20 08/06/20 History Patient History Medical History Atrial fibrillation paroxysmal CAD (coronary artery disease) s/p CABG x3 (2003) Diabetes mellitus, type 2 Embolism and thrombosis of arteries of lower extremity 2017/LLE embolectomy/patch angioplasty History of breast cancer History of upper gastrointestinal bleeding duodenal ulcer (2013) Hydronephrosis Hypercalcemia Hyperparathyroidism Hypertensive urgency Hypothyroidism Kidney stones Mitral stenosis borderline to mild per 11/2018 ECHO Osteoporosis Partial bowel obstruction 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 (2015), s/p chemo/current colostomy bag (lifelong) Small bowel obstruction resolved with NGT/no surgical intervention needed Vitamin D deficiency Surgical History H/O colostomy History of embolectomy LLE embolectomy/patch angioplasty (2016) Hx of cataract surgery right and left Hx of cystoscopy Hx of tonsillectomy Status post cardiac catheterization 2016 Status post colostomy Status post coronary artery bypass grafting 2003 Status post partial colectomy Status post partial mastectomy left lumpectomy Family History Other Diabetes Heart disease Social History Smoking Status: Former smoker Years Smoked: 49; Second Hand Exposure: No; Hx Alcohol Use: No Hx Substance Use: No Preferred Language: German 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 Ability: Effective Master Chef Required: No Beliefs That Will Affect Care: None Current Living Situation: Family Current Living Situation Comment: With brother per report; pt refusing a ssessment Feels Safe at Home: Declines to Answer Assistive Devices: Walker Review of Systems Review of Systems: All systems reviewed & are unremarkable except as noted in HPI & below Physical Exam Physical Exam: General: Somnolent and confused. No acute distress HEENT: Normocephalic, atraumatic. Pupils equal, round and reactive to light and accommodation. Extraocular muscles are intact. Anicteric sclera. Moist mucous membranes. Neck: No JVD. No bruit. Cardiovascular: irregularly irregular, unable to appreciate murmur, rub or gallop. Pulmonary: Clear to auscultation bilaterally. No rales, rhonchi, or wheezing. Abdomen: Bowel sounds x 4, soft. No rebound, guarding or tenderness. No organomegaly. Extremities: No clubbing, cyanosis or edema. +2 pedal pulses bilaterally. Skin: Warm and dry. Results & Data ([facility]) Vital Signs (Past 12 Hours) Vital Signs Temp Pulse Pulse Resp BP BP Pulse Ox 08/06/20 15:09 126 H 08/06/20 14:42 134 H 116/76 08/06/20 14:21 116 H 116/76 94 08/06/20 13:30 37.4 C 128 H 20 114/75 96 08/06/20 12:15 105 H 20 105/71 93 08/06/20 11:02 115 H 16 92/63 L 94 08/06/20 10:24 98 H 18 107/68 94 08/06/20 08:45 118 H 22 124/80 93 08/06/20 08:30 120 H 22 133/79 96 08/06/20 08:00 121 H 22 89/65 L 93 08/06/20 07:04 110 H 24 104/71 96 08/06/20 06:59 110 H 26 H 96 08/06/20 06:19 36.7 C 118 H 15 117/94 96
[2020-08-06] MEDS: INSULIN ASPART 100 UNITS/ML 3 ML PEN SC SCH (18:17)
[2020-08-06] MEDS ORDERED: dilTIAZem HCl 5 MG/ML 5 ML VIAL IV ONE (18:48)
[2020-08-06] MEDS: dilTIAZem HCL 125 MG in DEXTROSE 5% 100 ML IV SCH (18:55)
[2020-08-06] MEDS ORDERED: PROMETHAZINE HCL 12.5 MG in SODIUM CHLORIDE 0.9% 50 ML IV PRN (19:45)
[2020-08-06] MEDS ORDERED: FAMOTIDINE 20MG/5ML IV PUSH IV SCH (21:00)
[2020-08-06] MEDS ORDERED: INSULIN GLARGINE SOLOSTAR 100 UNITS/ML 3 ML PEN SC SCH ×2 (21:00)
[2020-08-06] MEDS ORDERED: APIXABAN 2.5 MG TAB PO SCH ×2 (21:00)
[2020-08-06] MEDS ORDERED: ROSUVASTATIN CALCIUM 10 MG TAB PO SCH ×2 (21:00)
[2020-08-06] MEDS: HEPARIN SOD 5,000 UNIT/0.5 ML VIAL SQ SCH (22:10)
[2020-08-07] MEDS: INSULIN ASPART 100 UNITS/ML 3 ML PEN SC SCH ×4 (00:04→17:00)
[2020-08-07 05:21] LABS: Appearance Urine Clear (Clear); Bilirubin Urine Negative (Negative); Blood Urine Negative (Negative); Color Urine Yellow; Glucose Urine UA Negative (Negative); Ketones Urine Negative (Negative); Leukocyte Esterase Urine Negative (Negative); Nitrite Urine Negative (Negative); Protein Urine Negative (Negative); Urobilinogen Urine Negative (Negative)
--- NOTE | 2020-08-07 07:09 | Surgery Progress Note ---
Date of Service August 07, 2020 Assessment & Plan (1) Small bowel obstruction: Patient refuses to have an NG tube unless she is sedated I will try to discuss this with anesthesia and GI Her KUB is pending as well as her laboratories I did discuss with her the possibility of an operation which may be significantly complex with a significant postoperative course She was under the impression that it would be very easy Apparently her daughter had a similar situation with obstruction NG tube surgery and then She does not currently need an emergent operation however we do not seem to be making much progress Admission and Anticipated Discharge Date Admission Date: August 06, 2020 Subjective Patient had 200 cc of emesis during the evening She is refusing NG tube unless she is sedated Her laboratories are currently pending She does not have significant abdominal pain Review of Systems Review of Systems: All systems reviewed & are unremarkable except as noted in HPI & below Physical Exam Physical Exam: Her abdomen is mildly distended with decreased bowel sounds She has minimal tenderness Constitutional: no acute distress Eyes: + anicteric sclerae Respiratory: normal respiratory effort; no respiratory distress Cardiovascular: Rate/Rhythm: regular rate Musculoskeletal: Head/Neck/Chest: head atraumatic Skin: no rashes, warm and dry Neurologic: awake Psychiatric: Orientation: alert Results & Data ([facility]) Vital Signs (Past 12 Hours) Vital Signs Temp Pulse Resp BP Pulse Ox 08/07/20 02:38 36.6 C 81 18 118/67 95 08/06/20 22:32 36.8 C 84 20 104/63 98 08/06/20 19:19 37.2 C 98 H 24 109/52 L 95 PG Care Time/CCT Total # of Minutes Spent Total Time Spent with Patient: Total time spent is greater than 50% in coordination of care (as documented) at patient's floor/unit and/or counseling patient: Coding Level of Care Code 31019 Subseq Hosp Care Lvl 3 Diagnoses Small bowel obstruction K56.609
[2020-08-07 07:11] LABS: Hematocrit (blood only) 41.2 % (37-47); Hemoglobin 13.3 g/dL (12.0-16.0); Mean Corpuscular Hgb Conc 32.3 g/dL (32-36); Mean Platelet Volume 9.9 fL (7.4-10.4); Platelet Count 277 K/uL (130-400); RDW Coefficient of Variation 15.7 % (11.5-14.5); RDW Standard Deviation 53.9 fL (36.4-46.3); Red Blood Count 4.43 M/uL (4.2-5.4); White Blood Count 3.34 K/uL (4.8-10.8)
--- NOTE | 2020-08-07 07:17 | Hospitalist Progress Note ---
Date of Service August 07, 2020 Assessment & Plan (1) Small bowel obstruction: -Admit to [facility] with telemetry -CT reviewed: 1. Interval development of a small bowel obstruction with a focal transition point within the deep pelvis as described above. 2. Postoperative changes consistent with resection of the distal colon and rectum with a descending colostomy. Parastomal hernia remains unchanged. 3. Chronic moderate right hydronephrosis of undetermined etiology. Caliber change is noted within the distal right ureter at the level iliac vessels. This could represent a stricture. -Consulted general surgery, discussed with Dr. Onofre via phone -Retry to place NG tube, unsuccessful in the ER thus far, once in place LIS, hold for 30 minutes after meds via NGT. Will convert meds to IV in meantime. -GI consult for hx of GI bleed and NGT placement/management -N.p.o., cont IV fluids -IV antiemetics -Pain currently controlled, wonder if narcotic caused increased confusion, as the patient is although oriented and able to provide some information, requires prompting to answer questions, saying at some points, intermittently falling asleep during exam, avoid narcotics and use IV tylenol prn. -now patient is alert oriented answering questions appropriately, will try to continue with IV Tylenol for the most part (08/07) -Recent GI bleed during admission earlier this month, monitor. (2) Parastomal hernia: - Chronic, Noted on CT (3) Rectal adenocarcinoma: - Rectal bleeding in Nov 2014 prompted colonoscopy, biopsy and ultimately diagnosis of colon cancer. 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 - Followed previously with [facility] and got xeloda and XRT. (4) CAD (coronary artery disease): - hx of bypass in 2003 (5) Atrial fibrillation: -Paroxysmal, Recurred in 2017. -switched to IV metoprolol scheduled and prn on admission however was persistently in heart rates 130s and above -Cardiology was then consulted and started on Cardizem drip - holding eliquis, switch to subq heparin for now, monitor for bleed (6) Hydronephrosis: -Reviewed on CT, appears to be chronic, moderate, right-sided, if worsening I's/O's or creatinine/BUN would consider nephrology/urology consultation - Follows with urology as outpt, next appt in August (7) Diabetes mellitus, type 2: -Reduce Tresiba to 9 units daily since n.p.o., ISS with Accu-Cheks, glycemic pharmacy consulted -Last A1c =7.1 on 07/20/20 (8) Hypothyroidism: -Convert home levothyroxine 50 mcg daily to IV 25 mcg daily, starting tomorrow (9) CKD (chronic kidney disease): - Cr. 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 - Due to NPO, will hold Eliquis and cont. anticoagulation with heparin subq for hx of such, and CKD. DVT ppx: - teds, scds CODE: Full Code Dispo: From home, likely to remain in the hospital x 1-2 days Admission and Anticipated Discharge Date Admission Date: August 06, 2020 Subjective Patient seen in follow-up of Chelsie NICHOLSON with [facility] Had emesis overnight, continues to feel uncomfortable, and have nausea NG tube was attempted several times in ED yesterday, unsuccessful Now patient is awake, alert oriented, and would consider NG tube if she was sedated Denies any chest pain or shortness of breath, fevers or chills Surgery is following, recommend NG tube Cardiology following due to her elevated heart rates yesterday in the setting of A. fib Review of Systems Review of Systems: All systems reviewed & are unremarkable except as noted in HPI & below Constitutional: no fever and no chills Respiratory: no cough and no dyspnea Cardiovascular: no chest pain Gastrointestinal: + nausea and + vomiting; no abdominal pain Physical Exam Physical Exam: General: WD/WN, elderly F awake, in NAD Head: Normocephalic, atraumatic ENT: PERRL, EOMI, no pharyngeal exudate, mucous membranes moist Chest: Clear to auscultation, on room air, no adventitious breath sounds Cardiac: Irregularly irregular, HR in 70ss, no murmur, no JVD, normal peripheral pulses, good capillary refill Abdominal: +hypoactive bowel sounds, + distended, +parastomal herniation, +colostomy, + mildly tender to palpation in epigastric and left upper quadrant, no guarding Extremities: Normal inspection, no peripheral edema or erythema, calfs nontender to palpation, multiple hammertoes bilateral feet Skin: Diffuse areas of actinic keratoses over extremities Psych: Normal mood and affect Neuro: AAO x 3, speech fluent, no facial symmetry, moves extremities spontaneously Results & Data Results & Data ([facility]) Vital Signs (Past 12 Hours) Vital Signs Temp Pulse Resp BP Pulse Ox 08/07/20 02:38 36.6 C 81 18 118/67 95 08/06/20 22:32 36.8 C 84 20 104/63 98 08/06/20 19:19 37.2 C 98 H 24 109/52 L 95 Laboratory Results 08/07/20 08/07/20 08/07/20 Range/Units 06:54 06:54 05:59 WBC 3.34 L (4.8-10.8) K/uL RBC 4.43 (4.2-5.4) M/uL Hgb 13.3 (12.0-16.0) g/dL Hct 41.2 (37-47) % MCV 93.0 (80-100) fL MCH 30.0 (25-34) pg MCHC 32.3 (32-36) g/dL RDW Std Deviation 53.9 H (36.4-46.3) fL RDW Coeff of Kei 15.7 H (11.5-14.5) % Plt Count 277 (130-400) K/uL MPV 9.9 (7.4-10.4) fL Sodium 139 (136-145) mmol/L Potassium 4.3 (3.5-5.1) mmol/L Chloride 104 (98-107) mmol/L Carbon Dioxide 29 (21-32) mmol/L Anion Gap 7.0 (3-11) BUN 37 H (7-18) mg/dl Creatinine 1.92 H (0.6-1.2) mg/dl Est Cr Clr Drug Dosing 20.3 ml/min Est GFR ( Amer) 26.7 ml/min Est GFR (Non-Af Amer) 23.0 ml/min BUN/Creatinine Ratio 19.3 (10-20) Glucose 130 H (70-99) mg/dl POC Glucose 134 H (70-99) mg/dl Lactate (0.4-2.0) mmol/L Calcium 8.9 (8.5-10.1) mg/dl Phosphorus 4.2 (2.5-4.9) mg/dl Magnesium 2.1 (1.8-2.4) mg/dl Total Bilirubin 0.7 (0.2-1) mg/dl AST 17 (15-37) U/L ALT 14 (12-78) U/L Alkaline Phosphatase 70 (45-117) U/L Total Protein 7.6 (6.4-8.2) gm/dl Albumin 2.7 L (3.4-5.0) gm/dl Globulin 4.9 H (2.5-4.0) gm/dl Albumin/Globulin Ratio 0.5 L (0.9-2) Urine Color Urine Appearance (Clear) Urine pH (4.5-7.5) Ur Specific Luther (1.000-1.030) Urine Protein (Negative) Urine Glucose (UA) (Negative) Urine Ketones (Negative) Urine Blood (Negative) Urine Nitrite (Negative) Urine Bilirubin (Negative) Urine Urobilinogen (Negative) Ur Leukocyte Esterase (Negative) COVID-19 Eval Order SARS-CoV-2 (PCR) (Negative) 08/07/20 08/07/20 08/06/20 Range/Units 05:00 00:03 22:07 WBC (4.8-10.8) K/uL RBC (4.2-5.4) M/uL Hgb (12.0-16.0) g/dL Hct (37-47) % MCV (80-100) fL MCH (25-34) pg MCHC (32-36) g/dL RDW Std Deviation (36.4-46.3) fL RDW Coeff of Kei (11.5-14.5) % Plt Count (130-400) K/uL MPV (7.4-10.4) fL Sodium (136-145) mmol/L Potassium (3.5-5.1) mmol/L Chloride (98-107) mmol/L Carbon Dioxide (21-32) mmol/L Anion Gap (3-11) BUN (7-18) mg/dl Creatinine (0.6-1.2) mg/dl Est Cr Clr Drug Dosing ml/min Est GFR ( Amer) ml/min Est GFR (Non-Af Amer) ml/min BUN/Creatinine Ratio (10-20) Glucose (70-99) mg/dl POC Glucose 134 H 143 H (70-99) mg/dl Lactate (0.4-2.0) mmol/L Calcium (8.5-10.1) mg/dl Phosphorus (2.5-4.9) mg/dl Magnesium (1.8-2.4) mg/dl Total Bilirubin (0.2-1) mg/dl AST (15-37) U/L ALT (12-78) U/L Alkaline Phosphatase (45-117) U/L Total Protein (6.4-8.2) gm/dl Albumin (3.4-5.0) gm/dl Globulin (2.5-4.0) gm/dl Albumin/Globulin Ratio (0.9-2) Urine Color Yellow Urine Appearance Clear (Clear) Urine pH 5.0 (4.5-7.5) Ur Specific Luther 1.020 (1.000-1.030) Urine Protein Negative (Negative) Urine Glucose (UA) Negative (Negative) Urine Ketones Negative (Negative) Urine Blood Negative (Negative) Urine Nitrite Negative (Negative) Urine Bilirubin Negative (Negative) Urine Urobilinogen Negative (Negative) Ur Leukocyte Esterase Negative (Negative) COVID-19 Eval Order SARS-CoV-2 (PCR) (Negative) 08/06/20 08/06/20 08/06/20 Range/Units 20:06 18:15 18:15 WBC (4.8-10.8) K/uL RBC (4.2-5.4) M/uL Hgb (12.0-16.0) g/dL Hct (37-47) % MCV (80-100) fL MCH (25-34) pg MCHC (32-36) g/dL RDW Std Deviation (36.4-46.3) fL RDW Coeff of Kei (11.5-14.5) % Plt Count (130-400) K/uL MPV (7.4-10.4) fL Sodium (136-145) mmol/L Potassium (3.5-5.1) mmol/L Chloride (98-107) mmol/L Carbon Dioxide (21-32) mmol/L Anion Gap (3-11) BUN (7-18) mg/dl Creatinine (0.6-1.2) mg/dl Est Cr Clr Drug Dosing ml/min Est GFR ( Amer) ml/min Est GFR (Non-Af Amer) ml/min BUN/Creatinine Ratio (10-20) Glucose (70-99) mg/dl POC Glucose 128 H (70-99) mg/dl Lactate 2.1 H* 3.1 H* (0.4-2.0) mmol/L Calcium (8.5-10.1) mg/dl Phosphorus (2.5-4.9) mg/dl Magnesium (1.8-2.4) mg/dl Total Bilirubin (0.2-1) mg/dl AST (15-37) U/L ALT (12-78) U/L Alkaline Phosphatase (45-117) U/L Total Protein (6.4-8.2) gm/dl Albumin (3.4-5.0) gm/dl Globulin (2.5-4.0) gm/dl Albumin/Globulin Ratio (0.9-2) Urine Color Urine Appearance (Clear) Urine pH (4.5-7.5) Ur Specific Luther (1.000-1.030) Urine Protein (Negative) Urine Glucose (UA) (Negative) Urine Ketones (Negative) Urine Blood (Negative) Urine Nitrite (Negative) Urine Bilirubin (Negative) Urine Urobilinogen (Negative) Ur Leukocyte Esterase (Negative) COVID-19 Eval Order SARS-CoV-2 (PCR) (Negative) 08/06/20 08/06/20 08/06/20 Range/Units 14:35 10:20 10:20 WBC (4.8-10.8) K/uL RBC (4.2-5.4) M/uL Hgb (12.0-16.0) g/dL Hct (37-47) % MCV (80-100) fL MCH (25-34) pg MCHC (32-36) g/dL RDW Std Deviation (36.4-46.3) fL RDW Coeff of Kei (11.5-14.5) % Plt Count (130-400) K/uL MPV (7.4-10.4) fL Sodium (136-145) mmol/L Potassium (3.5-5.1) mmol/L Chloride (98-107) mmol/L Carbon Dioxide (21-32) mmol/L Anion Gap (3-11) BUN (7-18) mg/dl Creatinine (0.6-1.2) mg/dl Est Cr Clr Drug Dosing ml/min Est GFR ( Amer) ml/min Est GFR (Non-Af Amer) ml/min BUN/Creatinine Ratio (10-20) Glucose (70-99) mg/dl POC Glucose 117 H (70-99) mg/dl Lactate (0.4-2.0) mmol/L Calcium (8.5-10.1) mg/dl Phosphorus (2.5-4.9) mg/dl Magnesium (1.8-2.4) mg/dl Total Bilirubin (0.2-1) mg/dl AST (15-37) U/L ALT (12-78) U/L Alkaline Phosphatase (45-117) U/L Total Protein (6.4-8.2) gm/dl Albumin (3.4-5.0) gm/dl Globulin (2.5-4.0) gm/dl Albumin/Globulin Ratio (0.9-2) Urine Color Urine Appearance (Clear) Urine pH (4.5-7.5) Ur Specific Luther (1.000-1.030) Urine Protein (Negative) Urine Glucose (UA) (Negative) Urine Ketones (Negative) Urine Blood (Negative) Urine Nitrite (Negative) Urine Bilirubin (Negative) Urine Urobilinogen (Negative) Ur Leukocyte Esterase (Negative) COVID-19 Eval Order Covid19 at [facility] SARS-CoV-2 (PCR) NEGATIVE (Negative) Medications Administered Current Inpatient Medications Acetaminophen (Acetaminophen 10mg/Ml Pediatric Dosing) 650 mg IV Q6H PRN PRN Reason: Pain Stop: 08/09/20 13:55 Chlorthalidone (Chlorthalidone 25 Mg Tab) 12.5 mg PO DAILY CORTEZ Stop: 09/06/20 08:59 Last Admin: 08/07/20 09:23 Dose: Not Given Documented by: Dextrose (Dextrose 50% 50 Ml Syringe) 25 - 50 ml IV UD PRN; Protocol PRN Reason: Hypoglycemia Protocol Stop: 09/05/20 13:55 Glucagon (Glucagon For Inj 1 Mg Vial) 1 mg SQ UD PRN; Protocol PRN Reason: Hypoglycemia Protocol Stop: 09/05/20 13:55 Glucose (Glucose 10 Tabs/Tube) 4 - 8 tabs PO UD PRN; Protocol PRN Reason: Hypoglycemia Protocol Stop: 09/05/20 13:55 Glucose (Glucose 40% Gel 15 Gm Tube) 15 - 30 gm PO UD PRN; Protocol PRN Reason: Hypoglycemia Protocol Stop: 09/05/20 13:55 Heparin Sodium (Porcine) (Heparin Sod 5,000 Unit/0.5 Ml Vial) 5,000 units SQ Q12 CORTEZ Stop: 09/05/20 20:59 Last Admin: 08/06/20 22:10 Dose: 5,000 units Documented by: Levothyroxine Sodium 25 mcg/ (Syringe) 1.25 mls @ 2 mls/min IV Q72H CORTEZ; Protocol Stop: 09/06/20 08:59 Famotidine 20 mg/ Syringe 5 mls @ 2.5 mls/min IV DAILY CORTEZ Stop: 09/06/20 08:59 Diltiazem HCl 125 mg/ Dextrose 125 mls @ 5 mls/hr IV .Q24H CORTEZ; Protocol Stop: 09/05/20 16:44 Last Admin: 08/06/20 18:55 Dose: 5 mg/hr, 5 mls/hr Documented by: Promethazine HCl 12.5 mg/ (Sodium Chloride) 50.5 mls @ 202 mls/hr IV Q6H PRN PRN Reason: Nausea And Vomiting Stop: 09/05/20 19:44 Last Infusion: 08/07/20 06:56 Dose: Infused Documented by: Insulin Aspart (Insulin Aspart 100 Units/Ml 3 Ml Pen) 0 units SC Q6 CORTEZ Stop: 09/05/20 17:59 Last Admin: 08/07/20 06:16 Dose: Not Given Documented by: Insulin Glargine (Insulin Glargine Solostar 100 Units/Ml 3 Ml Pen) 0 units SC HS CORTEZ; Protocol Stop: 09/05/20 20:59 Last Admin: 08/06/20 22:11 Dose: 9 units Documented by: Lidocaine HCl (Lidocaine 2% Jelly 5 Ml Tube) 1 ml EXT ONCE ONE Stop: 08/07/20 09:25 Miscellaneous (Carbohydrates For Hypoglycemia ) 15 - 30 gm PO UD PRN PRN Reason: Hypoglycemia Protocol Stop: 09/05/20 13:55 Miscellaneous Information (Pharmacy Glycemic Mgmt Consult) 1 ea N/A UD PRN; Protocol PRN Reason: Consult Stop: 09/05/20 14:20 Rosuvastatin Calcium (Rosuvastatin Calcium 10 Mg Tab) 10 mg PO HS CORTEZ Stop: 09/05/20 20:59 Last Admin: 08/06/20 21:25 Dose: Not Given Documented by: (1) Parastomal hernia Obstruction and gangrene presence: without obstruction or gangrene Qualified Code(s): K43.5 - Parastomal hernia without obstruction or gangrene
[2020-08-07 07:30] LABS: Albumin Level 2.7 gm/dl (3.4-5.0); BUN Creatinine Ratio 19.3 (10-20); Calcium 8.9 mg/dl (8.5-10.1); Creatinine Clr Calc Pharmacy 20.3 ml/min; Est GFR (African American) 26.7 ml/min; Magnesium 2.1 mg/dl (1.8-2.4); Potassium 4.3 mmol/L (3.5-5.1)
[2020-08-07 07:35] LABS: Albumin Globulin Ratio 0.5 (0.9-2); Bilirubin,Total 0.7 mg/dl (0.2-1); Globulin 4.9 gm/dl (2.5-4.0); Phosphorus 4.2 mg/dl (2.5-4.9); Total Protein 7.6 gm/dl (6.4-8.2)
[2020-08-07] MEDS ORDERED: LEVOTHYROXINE SODIUM 50 MCG TABLET PO SCH ×2 (09:00)
[2020-08-07] MEDS ORDERED: CHLORTHALIDONE 25 MG TAB PO SCH (09:00)
[2020-08-07] MEDS ORDERED: LIDOCAINE 2% JELLY 5 ML TUBE EXT ONE (09:24)
[2020-08-07] MEDS: HEPARIN SOD 5,000 UNIT/0.5 ML VIAL SQ SCH ×2 (09:30→22:28)
[2020-08-07] MEDS: LEVOTHYROXINE SODIUM 25 MCG in SYRINGE 0 ML IV SCH (09:30)
[2020-08-07] MEDS: FAMOTIDINE 20 MG in SYRINGE 3 ML IV SCH (09:37)
--- NOTE | 2020-08-07 09:59 | XRay Report ---
PA CHEST RADIOGRAPH AND LEFT LATERAL DECUBITUS AND SUPINE AP RADIOGRAPHS OF THE ABDOMEN CLINICAL HISTORY: Small bowel obstruction. COMPARISON STUDY: CT of the abdomen and pelvis August 06, 2020. Chest radiograph July 19, 2020. FINDINGS: Median sternotomy wires are noted. Cardiomegaly is noted. No pneumothorax or pleural effus ion is noted. Interstitial thickening is present. This favors mild pulmonary edema. There is no lobar consolidation. No free air is evident on the left lateral decubitus image. Several loops of dilated small bowel persist. These measure up to 4.5 cm in caliber. There is moderate gaseous distention of t he stomach. Cholecystectomy clips are incidentally noted. IMPRESSION: 1. Persistent small bowel obstruction. 2. No free air. 3. Moderate gaseous distention of the stomach. 4. Interstitial thickening suggestive of mild pulmonary edema. ACT 112: Negative or not required by law. Electronically signed by: Robin Harkins M.D. 08/07/2020 9:57 AM
[2020-08-07] MEDS ORDERED: cefOXitin 2,000 MG in DEXTROSE 5% 50 ML IV STA (10:53)
[2020-08-07] MEDS ORDERED: NEOSTIGMINE METHYLSULFATE 1 MG/ML 10ML VIAL ONE (10:56)
[2020-08-07] MEDS ORDERED: LIDOCAINE 2% 2 ML VIAL/AMP(20MG/ML) INFIL ONE (10:56)
[2020-08-07] MEDS ORDERED: ONDANSETRON INJ 2 MG/ML 2 ML VIAL ONE (10:56)
[2020-08-07] MEDS ORDERED: GLYCOPYRROLATE 0.2 MG/ML VIAL ONE (10:56)
[2020-08-07] MEDS ORDERED: PROPOFOL IV EMULSION 10 MG/ML 20 ML VIAL IV ONE (10:56)
[2020-08-07] MEDS ORDERED: DEXAMETHASONE SOD INJ 4 MG/ML VIAL ONE (10:56)
--- NOTE | 2020-08-07 10:56 | Anesthesiology Consultation ---
Date of Service August 07, 2020 Assessment & Plan (1) Encounter for pre-operative examination: Chart Review Chart Review: Acceptable Risk for Surgery (urgent surgery) History Surgery Operation Date: 08/07/20 11:30 Proposed Procedures p Exploratory Laparotomy - Pasha Onofre MD, FACS Height/Weight Height: 5 ft 1 in Weight: 84.2 kg Allergies Allergy/AdvReac Type Severity Reaction Status Date / Time iodine Allergy Intermediate Itching Verified 07/19/20 16:22 lisinopril Allergy Unknown Unknown Verified 07/19/20 16:22 ondansetron Allergy Unknown Unknown Verified 07/19/20 16:22 Sulfa (Sulfonamide Allergy Unknown Itching Verified 07/19/20 16:22 Antibiotics) Medications Home Medications Medication Instructions Recorded Confirmed Last Taken timolol maleate 1 drp OPB QAM 11/23/18 08/06/20 08/05/20 metoprolol tartrate 25 mg tablet 75 mg PO BID tab 11/19/19 08/06/20 08/05/20 denosumab 60 mg/mL subcutaneous 60 mg SQ .[id number] #1 ml 03/31/20 08/06/20 Unknown syringe levothyroxine 50 mcg tablet 50 mcg PO QAM 90 Days #90 tab 03/31/20 08/06/20 08/06/20 calcitriol 0.25 mcg capsule 0.25 mcg PO DAILY #90 cap 06/08/20 08/06/20 08/05/20 chlorthalidone 25 mg tablet 12.5 mg PO DAILY #45 tab 06/08/20 08/06/20 08/05/20 Tresiba U-100 Insulin 100 unit/mL 18 unit SQ HS #10 ml NS 06/15/20 08/06/20 08/05/20 subcutaneous solution insulin aspart U-100 100 unit/mL See Rx Instructions SUBCUT 06/15/20 08/06/20 08/05/20 subcutaneous solution .COMPLEX #20 ml apixaban 2.5 mg PO BID 07/19/20 08/06/20 08/05/20 pantoprazole 40 mg PO BID 30 Days #60 tab 07/22/20 08/06/20 08/05/20 nitroglycerin 0.4 mg SUBLINGUAL UD 08/06/20 08/06/20 Unknown rosuvastatin 10 mg PO HS 08/06/20 08/06/20 08/05/20 Active Medications Generic Name Dose Route Start Last Admin Trade Name Abbe PRN Reason Stop Dose Admin Chlorthalidone 12.5 mg 08/07/20 09:00 08/07/20 09:23 Chlorthalidone 25 Mg Tab PO 09/06/20 08:59 Not Given DAILY CORTEZ Heparin Sodium (Porcine) 5,000 units 08/06/20 21:00 08/07/20 09:30 Heparin Sod 5,000 Unit/0.5 Ml Vial SQ 09/05/20 20:59 5,000 units Q12 CORTEZ Administration Levothyroxine Sodium 25 mcg/ 1.25 mls @ 2 mls/min 08/07/20 09:00 08/07/20 09:30 Syringe IV 09/06/20 08:59 2 mls/min Q72H CORTEZ Administration Protocol Famotidine 20 mg/ Syringe 5 mls @ 2.5 mls/min 08/07/20 09:00 08/07/20 09:37 IV 09/06/20 08:59 2.5 mls/min DAILY CORTEZ Administration Diltiazem HCl 125 mg/ Dextrose 125 mls @ 5 mls/hr 08/06/20 16:45 08/06/20 18 :55 IV 09/05/20 16:44 5 mg/hr .Q24H CORTEZ 5 mls/hr Administration Protocol 5 MG/HR Promethazine HCl 12.5 mg/ 50.5 mls @ 202 mls/hr 08/06/20 19:45 08/07/20 06:56 Sodium Chloride IV 09/05/20 19:44 Infused Q6H PRN Infusion Nausea And Vomiting Insulin Aspart 0 units 08/06/20 18:00 08/07/20 06:16 Insulin Aspart 100 Units/Ml 3 Ml Pen SC 09/05/20 17:59 Not Given Q6 CORTEZ Insulin Glargine 0 units 08/06/20 21:00 08/06/20 22:11 Insulin Glargine Solostar 100 Units/Ml 3 Ml Pen SC 09/05/20 20:59 9 units HS CORTEZ Administration Protocol Rosuvastatin Calcium 10 mg 08/06/20 21:00 08/06/20 21:25 Rosuvastatin Calcium 10 Mg Tab PO 09/05/20 20:59 Not Given HS CORTEZ Past Medical History Medical History Atrial fibrillation paroxysmal CAD (coronary artery disease) s/p CABG x3 (2003) Diabetes mellitus, type 2 Embolism and thrombosis of arteries of lower extremity 2017/LLE embolectomy/patch angioplasty History of breast cancer History of upper gastrointestinal bleeding duodenal ulcer (2013) Hydronephrosis Hypercalcemia Hyperparathyroidism Hypertensive urgency Hypothyroidism Kidney stones Mitral stenosis borderline to mild per 11/2018 ECHO Osteoporosis Partial bowel obstruction 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 (2015), s/p chemo/current colostomy bag (lifelong) Small bowel obstruction resolved with NGT/no surgical intervention needed Vitamin D deficiency Past Family History Family History Other Diabetes Heart disease Past Surgical History Surgical History H/O colostomy History of embolectomy LLE embolectomy/patch angioplasty (2016) Hx of cataract surgery right and left Hx of cystoscopy Hx of tonsillectomy Status post cardiac catheterization 2016 Status post colostomy Status post coronary artery bypass grafting 2003 Status post partial colectomy Status post partial mastectomy left lumpectomy Social History Smoking Status: Former smoker Hx Alcohol Use: No Hx Substance Use: No substance use type: does not use Physical Exam Vital Signs Last Vital Signs Temp 37.0 C 08/07/20 07:24 Pulse 79 08/07/20 07:24 Resp 16 08/07/20 07:24 BP 118/65 08/07/20 07:24 Pulse Ox 96 08/07/20 07:24 Testing Laboratory Results 08/07/20 06:54 08/07/20 06:54 Urine Color Yellow 08/07/20 05:00 Urine Appearance Clear (Clear) 08/07/20 05:00 Urine pH 5.0 (4.5-7.5) 08/07/20 05:00 Ur Specific [place] 1.020 (1.000-1.030) 08/07/20 05:00 Urine Protein Negative (Negative) 08/07/20 05:00 Urine Glucose (UA) Negative (Negative) 08/07/20 05:00 Urine Ketones Negative (Negative) 08/07/20 05:00 Urine Nitrite Negative (Negative) 08/07/20 05:00 Ur Leukocyte Esterase Negative (Negative) 08/07/20 05:00 08/07/20 08/07/20 05:59 00:03 POC Glucose 134 H 134 H Electrocardiogram Date: 08/06/20 Findings: + AFIB @ (123), + RBBB and + no change from (July 19) Chest X-Ray Date: 07/19/20 Findings: + NAD and + cardiomegaly Echocardiogram Date: 05/11/20 LV Function: normal Other Findings: + atrial enlargement (dilated atrium) Valvular Disease: + no significant valvular disease
[2020-08-07] MEDS ORDERED: fentaNYL citrate 100 MCG/2 ML VIAL ONE (10:57)
[2020-08-07] MEDS ORDERED: HYDROmorphone INJ 1 MG/ML SYRINGE IV PRN ×2 (11:35→14:34)
[2020-08-07] MEDS ORDERED: ATROPINE SULFATE 0.1 MG/ML 10ML SYR IV PRN (11:35)
[2020-08-07] MEDS ORDERED: PROMETHAZINE HCL 6.25 MG in SODIUM CHLORIDE 0.9% 50 ML IV PRN (11:35)
[2020-08-07] MEDS ORDERED: ACETAMINOPHEN 1000 MG/100 ML IV IV ONE (12:41)
[2020-08-07] MEDS ORDERED: SUGAMMADEX SODIUM 200 MG/2 ML VIAL IV ONE (12:41)
[2020-08-07] MEDS ORDERED: ACETAMINOPHEN 1,000 MG/100 ML VIAL IV ONE (13:22)
[2020-08-07] MEDS ORDERED: ICU PROTOCOL FOR HYPERGLYCEMIA PRN (13:22)
--- NOTE | 2020-08-07 13:22 | Post Operative Brief Note ---
PG Immediate Post Op with CF Date of Surgery August 07, 2020 Pre & Post Diagnosis Operation Date: 08/07/20 11:30 Pre-Op Diagnosis: Small Bowel Obstruction Post-Op Diagnosis: Small Bowel Obstruction , adhesions I identified the patient and participated in the time-out.: Yes Procedure Operation Date: 08/07/20 11:30 Actual Procedures p Exploratory Laparotomy, Small Bowel Bypass, Lysis of Adhesions(Not Applicable) - Pasha Onofre MD, FACS Surgeon Pasha Onofre MD, FACS [employer] nurses Estimated Blood Loss 20 Findings Consistent with Post-Op Diagnosis Drains Jefferson Catheter, Quentin-Carreon Drain and [place] Drain
--- NOTE | 2020-08-07 13:47 | Operative Report (OR) ---
DATE OF OPERATION: 08/07/2020 NAME OF OPERATION: Laparotomy with enterolysis and small bowel [id number] anastomosis with small bowel bypass. STAFF SURGEON: Pasha Onofre MD. UNDERGROUND MINE SUPERINTENDENT: Nurses. ANESTHESIA: General. DESCRIPTION OF PROCEDURE: The patient was brought in the operating room and placed on the operating table in supine position. She had been admitted to the hospital with a small-bowel obstruction, which was worsening. She refused NG placement and I felt that it would not matter at this point if she had an NG tube preoperatively. Her small bowel was becoming more dilated proximally. 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 This made the approach somewhat difficult. I did oversew the stoma using #1 Prolene and then removed it at the end, covered it with Op-Site. Incision was made to the right of the stoma down in the lower abdomen carrying dissection down through significant adipose tissue and scar tissue to the fascia. The fascia was then opened. Peritoneum opened. She did have adhesions to the anterior abdominal wall of omentum and bowel, which were taken down. Gradually, I was able to mobilize the tissue, identify her stoma and hernia, which I did not attempt to operate upon. I found her proximal small bowel, which was significantly dilated traversing down into the pelvis where she had had previous surgery and apparently also had radiation. I was also able to trace the small bowel from the cecum, which was completely decompressed down into the pelvis, identifying the distal limb of the small bowel, which was completely decompressed. At this point, I felt that the adhesions in the pelvis were extremely dense and it would have been very dangerous and complicated to attempt mobilization. I felt a small bowel bypass above the pelvis would be appropriate; therefore, the dilated small bowel and decompressed small bowel were brought together in a [id number] anastomosis using a MAUREEN 60 stapler. The enteric defect was closed using 2 layers, a mucosal layer of 2-0 chromic suture and then a seromuscular layer of interrupted 3-0 silk suture. The mesenteric defect was closed in the majority. At this point, I was able to palpate the NG tube, which was in good place. We irrigated the abdomen with Mefoxin antibiotic solution, placed a #19 round Quentin-Carreon drain into the pelvis, secured to the skin using 3-0 nylon suture. The fascia was then reapproximated using both running and interrupted #1 PDS suture. Jakob drain placed into the subcutaneous space, brought out through both ends, secured using 4-0 nylon suture. Skin reapproximated using raudel. Stoma appliance was applied. The Prolene suture was removed from the stoma. The patient was transferred to the intensive care unit in stable condition. I attest to the content of the Intraoperative Record and any orders documented therein. Any exception s are noted below.
--- NOTE | 2020-08-07 14:05 | Critical Care Consultation ---
Date of Consultation August 07, 2020 Assessment & Plan (1) CKD (chronic kidney disease): (2) Small bowel obstruction: (3) Parastomal hernia: (4) Abnormal CT of the abdomen: (5) Acute kidney injury superimposed on chronic kidney disease: (6) Post-operative state: Reason Critically Ill: 85-year-old female postop day 0 from exploratory laparotomy with small bowel bypass PLAN: Neuro: Acute encephalopathy -Likely related to anesthetic agents we will continue to monitor Resp: Wean oxygen as tolerated CV: Atrial fibrillation -Rate controlled no indication for systemic anticoagulation at this time given postoperative state -On apixaban as outpatient -On Cardizem infusion for rate control -Consider transition to oral medication after return of bowel function Fluids/Renal: Acute kidney injury on chronic kidney disease -Lactated Ringer's at 80 mL's per hour -Holding chlorthalidone ID: Mefoxin per surgery GI/Nutrition: Ice chips per surgery -Low intermittent suction of NG tube Heme: Leukopenia DVT prophylaxis: Heparin 5000 3 times daily Endocrine: ICU hyperglycemia protocol Diabetes mellitus Hypothyroidism Vascular access: Peripheral IVs Code Status: Full code Disposition: ICU Present on Admission?: No History of Present Illness Reason for Consultation: Postoperative ICU management Requesting Physician: Pasha Onofre Attending Physician: Khoi Henao MD History of Present Illness Patient is an 85-year-old female with a past medical history of multiple abdominal surgeries and likely radiation therapy who presented to the emergency department with a small bowel obstruction and initially refused NG tube. Patient small bowel obstruction did not improve and to avoid perforation or ischemia she was taken to the operating room for possible bowel resection or bypass. Discussed with Dr. Onofre who performed a small bowel bypass and placement of an NG tube which is draining bilious fluid at this time. She was relatively hemodynamically stable during the operative case Allergies Allergy/AdvReac Type Severity Reaction Status Date / Time iodine Allergy Intermediate Itching Verified 07/19/20 16:22 lisinopril Allergy Unknown Unknown Verified 07/19/20 16:22 ondansetron Allergy Unknown Unknown Verified 07/19/20 16:22 Sulfa (Sulfonamide Allergy Unknown Itching Verified 07/19/20 16:22 Antibiotics) Home Medications Medication Instructions Recorded Confirmed Type timolol maleate 1 drp OPB QAM 11/23/18 08/06/20 History metoprolol tartrate 25 mg tablet 75 mg PO BID tab 11/19/19 08/06/20 History denosumab 60 mg/mL subcutaneous 60 mg SQ .[id number] #1 ml 03/31/20 08/06/20 Rx syringe levothyroxine 50 mcg tablet 50 mcg PO QAM 90 Days #90 tab 03/31/20 08/06/20 Rx calcitriol 0.25 mcg capsule 0.25 mcg PO DAILY #90 cap 06/08/20 08/06/20 Rx chlorthalidone 25 mg tablet 12.5 mg PO DAILY #45 tab 06/08/20 08/06/20 Rx Tresiba U-100 Insulin 100 unit/mL 18 unit SQ HS #10 ml NS 06/15/20 08/06/20 Rx subcutaneous solution insulin aspart U-100 100 unit/mL See Rx Instructions SUBCUT 06/15/20 08/06/20 Rx subcutaneous solution .COMPLEX #20 ml apixaban 2.5 mg PO BID 07/19/20 08/06/20 History pantoprazole 40 mg PO BID 30 Days #60 tab 07/22/20 08/06/20 Rx nitroglycerin 0.4 mg SUBLINGUAL UD 08/06/20 08/06/20 History rosuvastatin 10 mg PO HS 08/06/20 08/06/20 History Patient History Medical History Atrial fibrillation paroxysmal CAD (coronary artery disease) s/p CABG x3 (2003) Diabetes mellitus, type 2 Embolism and thrombosis of arteries of lower extremity 2017/LLE embolectomy/patch angioplasty History of breast cancer History of upper gastrointestinal bleeding duodenal ulcer (2013) Hydronephrosis Hypercalcemia Hyperparathyroidism Hypertensive urgency Hypothyroidism Kidney stones Mitral stenosis borderline to mild per 11/2018 ECHO Osteoporosis Partial bowel obstruction 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 (2015), s/p chemo/current colostomy bag (lifelong) Small bowel obstruction resolved with NGT/no surgical intervention needed Vitamin D deficiency Surgical History H/O colostomy History of embolectomy LLE embolectomy/patch angioplasty (2016) Hx of cataract surgery right and left Hx of cystoscopy Hx of tonsillectomy Status post cardiac catheterization 2016 Status post colostomy Status post coronary artery bypass grafting 2003 Status post partial colectomy Status post partial mastectomy left lumpectomy Family History Other Diabetes Heart disease Social History Smoking Status: Former smoker Years Smoked: 49; Second Hand Exposure: No; Hx Alcohol Use: No Hx Substance Use: No Preferred Language: Vietnamese 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 Ability: Effective Art Psychotherapist Required: No Beliefs That Will Affect Care: None Current Living Situation: Family Current Living Situation Comment: With brother per report; pt refusing assessment Feels Safe at Home: Declines to Answer Assistive Devices: None Review of Systems Review of Systems: Unobtainable due to cognitive status (Unable to obtain due to postoperative state) Physical Exam Physical Exam: General: Somnolent: Postoperative anesthesia. nontoxic. Skin: Warm, dry, Head: Atraumatic Ears, nose, mouth and throat: airway patent, NG tube present Cardiovascular: Normal peripheral perfusion Respiratory: no respiratory distress Gastrointestinal: Surgical dressing is clean dry and intact Musculoskeletal: No deformity Results & Data Results & Data ([facility]) Vital Signs (Past 12 Hours) Vital Signs Temp Pulse Pulse Resp BP Pulse Ox 08/07/20 07:24 37.0 C 79 16 118/65 96 08/07/20 07:15 92 H 08/07/20 02:38 36.6 C 81 18 118/67 95 Laboratory Results 08/07/20 08/07/20 08/07/20 Range/Units 06:54 06:54 05:59 WBC 3.34 L (4.8-10.8) K/uL RBC 4.43 (4.2-5.4) M/uL Hgb 13.3 (12.0-16.0) g/dL Hct 41.2 (37-47) % MCV 93.0 (80-100) fL MCH 30.0 (25-34) pg MCHC 32.3 (32-36) g/dL RDW Std Deviation 53.9 H (36.4-46.3) fL RDW Coeff of Kei 15.7 H (11.5-14.5) % Plt Count 277 (130-400) K/uL MPV 9.9 (7.4-10.4) fL Sodium 139 (136-145) mmol/L Potassium 4.3 (3.5-5.1) mmol/L Chloride 104 (98-107) mmol/L Carbon Dioxide 29 (21-32) mmol/L Anion Gap 7.0 (3-11) BUN 37 H (7-18) mg/dl Creatinine 1.92 H (0.6-1.2) mg/dl Est Cr Clr Drug Dosing 20.3 ml/min Est GFR ( Amer) 26.7 ml/min Est GFR (Non-Af Amer) 23.0 ml/min BUN/Creatinine Ratio 19.3 (10-20) Glucose 130 H (70-99) mg/dl POC Glucose 134 H (70-99) mg/dl Lactate (0.4-2.0) mmol/L Calcium 8.9 (8.5-10.1) mg/dl Phosphorus 4.2 (2.5-4.9) mg/dl Magnesium 2.1 (1.8-2.4) mg/dl Total Bilirubin 0.7 (0.2-1) mg/dl AST 17 (15-37) U/L ALT 14 (12-78) U/L Alkaline Phosphatase 70 (45-117) U/L Total Protein 7.6 (6.4-8.2) gm/dl Albumin 2.7 L (3.4-5.0) gm/dl Globulin 4.9 H (2.5-4.0) gm/dl Albumin/Globulin Ratio 0.5 L (0.9-2) Urine Color Urine Appearance (Clear) Urine pH (4.5-7.5) Ur Specific [place] (1.000-1.030) Urine Protein (Negative) Urine Glucose (UA) (Negative) Urine Ketones (Negative) Urine Blood (Negative) Urine Nitrite (Negative) Urine Bilirubin (Negative) Urine Urobilinogen (Negative) Ur Leukocyte Esterase (Negative) 08/07/20 08/07/20 08/06/20 Range/Units 05:00 00:03 22:07 WBC (4.8-10.8) K/uL RBC (4.2-5.4) M/uL Hgb (12.0-16.0) g/dL Hct (37-47) % MCV (80-100) fL MCH (25-34) pg MCHC (32-36) g/dL RDW Std Deviation (36.4-46.3) fL RDW Coeff of Kei (11.5-14.5) % Plt Count (130-400) K/uL MPV (7.4-10.4) fL Sodium (136-145) mmol/L Potassium (3.5-5.1) mmol/L Chloride (98-107) mmol/L Carbon Dioxide (21-32) mmol/L Anion Gap (3-11) BUN (7-18) mg/dl Creatinine (0.6-1.2) mg/dl Est Cr Clr Drug Dosing ml/min Est GFR ( Amer) ml/min Est GFR (Non-Af Amer) ml/min BUN/Creatinine Ratio (10-20) Glucose (70-99) mg/dl POC Glucose 134 H 143 H (70-99) mg/dl Lactate (0.4-2.0) mmol/L Calcium (8.5-10.1) mg/dl Phosphorus (2.5-4.9) mg/dl Magnesium (1.8-2.4) mg/dl Total Bilirubin (0.2-1) mg/dl AST (15-37) U/L ALT (12-78) U/L Alkaline Phosphatase (45-117) U/L Total Protein (6.4-8.2) gm/dl Albumin (3.4-5.0) gm/dl Globulin (2.5-4.0) gm/dl Albumin/Globulin Ratio (0.9-2) Urine Color Yellow Urine Appearance Clear (Clear) Urine pH 5.0 (4.5-7.5) Ur Specific [place] 1.020 (1.000-1.030) Urine Protein Negative (Negative) Urine Glucose (UA) Negative (Negative) Urine Ketones Negative (Negative) Urine Blood Negative (Negative) Urine Nitrite Negative (Negative) Urine Bilirubin Negative (Negative) Urine Urobilinogen Negative (Negative) Ur Leukocyte Esterase Negative (Negative) 08/06/20 08/06/20 08/06/20 Range/Units 20:06 18:15 18:15 WBC (4.8-10.8) K/uL RBC (4.2-5.4) M/uL Hgb (12.0-16.0) g/dL Hct (37-47) % MCV (80-100) fL MCH (25-34) pg MCHC (32-36) g/dL RDW Std Deviation (36.4-46.3) fL RDW Coeff of Kei (11.5-14.5) % Plt Count (130-400) K/uL MPV (7.4-10.4) fL Sodium (136-145) mmol/L Potassium (3.5-5.1) mmol/L Chloride (98-107) mmol/L Carbon Dioxide (21-32) mmol/L Anion Gap (3-11) BUN (7-18) mg/dl Creatinine (0.6-1.2) mg/dl Est Cr Clr Drug Dosing ml/min Est GFR ( Amer) ml/min Est GFR (Non-Af Amer) ml/min BUN/Creatinine Ratio (10-20) Glucose (70-99) mg/dl POC Glucose 128 H (70-99) mg/dl Lactate 2.1 H* 3.1 H* (0.4-2.0) mmol/L Calcium (8.5-10.1) mg/dl Phosphorus (2.5-4.9) mg/dl Magnesium (1.8-2.4) mg/dl Total Bilirubin (0.2-1) mg/dl AST (15-37) U/L ALT (12-78) U/L Alkaline Phosphatase (45-117) U/L Total Protein (6.4-8.2) gm/dl Albumin (3.4-5.0) gm/dl Globulin (2.5-4.0) gm/dl Albumin/Globulin Ratio (0.9-2) Urine Color Urine Appearance (Clear) Urine pH (4.5-7.5) Ur Specific [place] (1.000-1.030) Urine Protein (Negative) Urine Glucose (UA) (Negative) Urine Ketones (Negative) Urine Blood (Negative) Urine Nitrite (Negative) Urine Bilirubin (Negative) Urine Urobilinogen (Negative) Ur Leukocyte Esterase (Negative) 08/06/20 Range/Units 14:35 WBC (4.8-10.8) K/uL RBC (4.2-5.4) M/uL Hgb (12.0-16.0) g/dL Hct (37-47) % MCV (80-100) fL MCH (25-34) pg MCHC (32-36) g/dL RDW Std Deviation (36.4-46.3) fL RDW Coeff of Kei (11.5-14.5) % Plt Count (130-400) K/uL MPV (7.4-10.4) fL Sodium (136-145) mmol/L Potassium (3.5-5.1) mmol/L Chloride (98-107) mmol/L Carbon Dioxide (21-32) mmol/L Anion Gap (3-11) BUN (7-18) mg/dl Creatinine (0.6-1.2) mg/dl Est Cr Clr Drug Dosing ml/min Est GFR ( Amer) ml/min Est GFR (Non-Af Amer) ml/min BUN/Creatinine Ratio (10-20) Glucose (70-99) mg/dl POC Glucose 117 H (70-99) mg/dl Lactate (0.4-2.0) mmol/L Calcium (8.5-10.1) mg/dl Phosphorus (2.5-4.9) mg/dl Magnesium (1.8-2.4) mg/dl Total Bilirubin (0.2-1) mg/dl AST (15-37) U/L ALT (12-78) U/L Alkaline Phosphatase (45-117) U/L Total Protein (6.4-8.2) gm/dl Albumin (3.4-5.0) gm/dl Globulin (2.5-4.0) gm/dl Albumin/Globulin Ratio (0.9-2) Urine Color Urine Appearance (Clear) Urine pH (4.5-7.5) Ur Specific [place] (1.000-1.030) Urine Protein (Negative) Urine Glucose (UA) (Negative) Urine Ketones (Negative) Urine Blood (Negative) Urine Nitrite (Negative) Urine Bilirubin (Negative) Urine Urobilinogen (Negative) Ur Leukocyte Esterase (Negative) Coding Level of Care Code 82701 Inpt Consult Level 5 Diagnoses CKD (chronic kidney disease) N18.9 Small bowel obstruction K56.609 Parastomal hernia K43.5 Obstruction and gangrene presence: without obstruction or gangrene Abnormal CT of the abdomen R93.5 Acute kidney injury superimposed on chronic kidney disease N17.9; N18.9 Post-operative state Z98.890 (1) Parastomal hernia Obstruction and gangrene presence: without obstruction or gangrene Qualified Code(s): K43.5 - Parastomal hernia without obstruction or gangrene
--- NOTE | 2020-08-07 14:06 | Cardiology Progress Note ---
Date of Service August 07, 2020 Assessment & Plan (1) Atrial fibrillation: (2) CAD (coronary artery disease): (3) Rectal adenocarcinoma: (4) Supratherapeutic INR: (5) Weakness: (6) Acute kidney injury superimposed on chronic kidney disease: (7) Small bowel obstruction: (8) Embolism and thrombosis of arteries of lower extremity: (9) Diabetes mellitus, type 2: Given that she is unable to tolerate oral medications at this time and her rates remain elevated despite IV metoprolol I believe the most prudent course of action would be to start her on IV Cardizem bolus and drip. We will restart her oral medications when she is able to but this will allow us to control her rates until her obstruction is resolved. Admission and Anticipated Discharge Date Admission Date: August 06, 2020 Subjective Pt seen and examined, chart reviewed. Somnolent. No complaints reported overnignt. Remains npo. Physical Exam Physical Exam: General: Somnolent and confused. No acute distress HEENT: Normocephalic, atraumatic. Pupils equal, round and reactive to light and accommodation. Extraocular muscles are intact. Anicteric sclera. Moist mucous membranes. Neck: No JVD. No bruit. Cardiovascular: irregularly irregular, unable to appreciate murmur, rub or gallop. Pulmonary: Clear to auscultation bilaterally. No rales, rhonchi, or wheezing. Abdomen: Bowel sounds x 4, soft. No rebound, guarding or tenderness. No organomegaly. Extremities: No clubbing, cyanosis or edema. +2 pedal pulses bilaterally. Skin: Warm and dry. Results & Data ([facility]) Vital Signs (Past 12 Hours) Vital Signs Temp Pulse Pulse Resp BP Pulse Ox 08/07/20 14:00 88 21 128/85 100 08/07/20 13:50 87 21 126/85 100 08/07/20 13:42 94 H 10 L 170/63 H 98 08/07/20 07:24 37.0 C 79 16 118/65 96 08/07/20 07:15 92 H 08/07/20 02:38 36.6 C 81 18 118/67 95
--- NOTE | 2020-08-07 14:12 | Anesthesiology Progress Note ---
Date of Service August 07, 2020 Anesthesia Post Procedure Vital Signs Vital Signs: Temp Pulse Pulse Resp BP BP Pulse Ox 08/07/20 14:00 88 21 128/85 100 08/07/20 13:50 87 21 126/85 100 08/07/20 13:42 94 H 10 L 170/63 H 98 08/07/20 07:24 37.0 C 79 16 118/65 96 08/07/20 07:15 92 H 08/07/20 02:38 36.6 C 81 18 118/67 95 08/06/20 22:32 36.8 C 84 20 104/63 98 08/06/20 19:19 37.2 C 98 H 24 109/52 L 95 08/06/20 19:00 36.8 C 104 H 22 119/59 L 98 08/06/20 18:23 36.8 C 117 H 24 106/70 96 08/06/20 16:00 121 H 08/06/20 15:09 126 H 08/06/20 14:42 134 H 116/76 08/06/20 14:21 116 H 116/76 94 Transfer of Care Handoff Completed per policy Notes Mental Status: alert / awake / arousable Patient Amnestic to Procedure: Yes Nausea / Vomiting: adequately controlled Pain: adequately controlled Airway Patency, RR, SpO2: stable & adequate BP & HR: stable & adequate Hydration State: stable & adequate Anesthetic Complications: no major complications apparent
--- NOTE | 2020-08-07 14:27 | Pharmacy Report ---
Pharmacy Glycemic Short Note 2 - Date of Service August 07, 2020 - Glycemic Short BSG Results (Last 24 hours): 08/06/20 08/06/20 08/06/20 14:35 18:15 22:07 Glucose POC Glucose 117 H 128 H 143 H 08/07/20 08/07/20 08/07/20 00:03 05:59 06:54 Glucose 130 H POC Glucose 134 H 134 H 08/07/20 14:07 Glucose POC Glucose 115 H OUTPATIENT ANTIDIABETIC REGIMEN: * Tresiba (insulin degludec) 18 units SQ HS * NovoLog with meals * 5-10 units with Breakfast * 7-15 units with Lunch and dinner * TDD ~ 68 units max * A1c = 7.1% on 07/20/20 ASSESSMENT: 08/07 * Patient is now POD #0 s/p exploratory laparotomy * Patient remains NPO * BSGs well controlled with only 9 units of basal insulin yesterday/no bolus * Will maintain current regimen today * Continues on diltiazem gtt at 5 mL/hr (containing dextrose) 08/06 * 85yo T2DM female with excellent outpatient control per recent A1c * Pt is maintained on SQ basal bolus regimen as an outpatient. Outpatient regimen is weighted towards prandial insulin. Basal insulin dose should be OK to continue despite NPO but to be safe, typically 50-80% of basal insulin dose is given when NPO. Will set a scale this evening for basal insulin dose based on BSG; if BSG < 160 will give 505 and if BSG >160 will give ~80% . Pt NPO for SBO * Outpatient basal insulin is Tresiba (insulin degludec). This is non-formulary- will convert to Lantus which is a 1:1 conversion. * Will use a weight based CF/CR and titrate based on BSG trends. PLAN FOR INPATIENT GLYCEMIC CONTROL: * Basal insulin * Lantus 9-13 units SQ HS while NPO * BSG < 160 --> 9 units (50% of outpatient dose) * BSG 160 or above --> 13 units (~80% of outpatient dose) * Bolus insulin * NovoLog per scale ACHS or Q6hrs while NPO * Goal Range: Low 110 mg/dL - High 140 mg/dL * Correction Factor: 30 mg/dL/unit * Nutritional / Prandial insulin per carb ratio of 1 unit per 9 grams CHO consumed PLAN FOR DISCHARGE: * A1c is in goal range for patient based on age/co-morbidities. No changes needed to outpatient regimen unless patient is experiencing frequent hypoglycemia.
[2020-08-07] MEDS ORDERED: ONDANSETRON INJ 2 MG/ML 2 ML VIAL IV PRN (14:34)
[2020-08-07] MEDS: LACTATED RINGER'S 1,000 ML IV SCH (14:53)
[2020-08-07] MEDS: dilTIAZem HCL 125 MG in DEXTROSE 5% 100 ML IV SCH (17:35)
[2020-08-07] MEDS ORDERED: INSULIN GLARGINE SOLOSTAR 100 UNITS/ML 3 ML PEN SC ONE (22:00)
[2020-08-07] MEDS: HYDROmorphone INJ 0.5 MG/0.5 ML SYR IV PRN (23:53)
[2020-08-08] MEDS ORDERED: LACTATED RINGER'S 250 ML IV ONE ×2 (00:22→02:25)
[2020-08-08] MEDS: ALBUMIN 25% 12.5 GM/50 ML VIAL IV SCH ×4 (01:00→16:16)
[2020-08-08] MEDS: LACTATED RINGER'S 1,000 ML IV SCH ×3 (01:42→23:44)
[2020-08-08 05:09] LABS: Albumin Level 2.7 gm/dl (3.4-5.0); BUN Creatinine Ratio 16.5 (10-20); Creatinine Clr Calc Pharmacy 14.6 ml/min; Est GFR (African American) 17.7 ml/min; Est GFR (Non-African American) 15.3 ml/min; Magnesium 1.9 mg/dl (1.8-2.4); Potassium 4.5 mmol/L (3.5-5.1)
[2020-08-08 05:12] LABS: Albumin Globulin Ratio 0.7 (0.9-2); Bilirubin,Total 0.9 mg/dl (0.2-1); Globulin 4.1 gm/dl (2.5-4.0); Phosphorus 4.4 mg/dl (2.5-4.9); Total Protein 6.8 gm/dl (6.4-8.2)
[2020-08-08 05:32] LABS: Basophils # (auto) 0.01 K/uL (0-0.2); Basophils % (auto) 0.2 %; Eosinophils # (auto) 0.05 K/uL (0-0.5); Eosinophils % (auto) 0.8 %; Hematocrit (blood only) 36.9 % (37-47); Immature Granulocytes # (auto) 0.09 K/uL (0.00-0.02); Immature Granulocytes % (auto) 1.5 %; Lymphocytes % (auto) 11.5 %; Mean Corpuscular Hemoglobin 29.6 pg (25-34); Mean Corpuscular Hgb Conc 32.5 g/dL (32-36); Mean Corpuscular Volume 90.9 fL (80-100); Mean Platelet Volume 10.2 fL (7.4-10.4); Monocytes # (auto) 0.53 K/uL (0.11-0.59); Monocytes % (auto) 8.7 %; Neutrophils % (auto) 77.3 %; Platelet Count 196 K/uL (130-400); Polychromasia 1+; RDW Coefficient of Variation 15.7 % (11.5-14.5); Red Blood Count 4.06 M/uL (4.2-5.4); Toxic Vacuolation 1+; White Blood Count 6.08 K/uL (4.8-10.8)
--- NOTE | 2020-08-08 05:53 | Surgery Progress Note ---
Date of Service August 08, 2020 Assessment & Plan (1) Small bowel obstruction: Postop day #1 exploratory laparotomy with lysis of adhesions and small bowel bypass Continue analgesics Continue antiemetics Provide IV fluid for hydration while patient is n.p.o. Continue NG tube until bowel function has returned. NG tube has drained approximately 150 cc last shift Subcu heparin is in place for DVT prevention Dr. Onofre-patient is awake and alert, vital signs show mild tachycardia and syst olic blood pressure in the 90s Her H&H is stable, BUN and creatinine are elevated, urine output is marginal- suspect most of this is from fluid shifts and patient's history of chronic renal disease-she is currently receiving some fluids and would suspect some fluctuation in her H&H. Preoperatively she did have some pulmonary edema which will add to the complexity of her fluid shifts. Continue ICU care today and monitor her cardiopulmonary status. Ice only for now Admission and Anticipated Discharge Date Admission Date: August 06, 2020 Subjective Patient is resting comfortably in bed. She notes her abdomen is sore and painful with palpation due to her recent surgery. She denies any nausea or vomiting. He notes her breathing is comfortable. Case was discussed with route sales driver RN who notes the patient had episodes of hypotension for which she has received several small fluid boluses. No other issues identified. Physical Exam Constitutional: no acute distress Respiratory: normal respiratory effort; no respiratory distress and no labored breathing Gastrointestinal (Abdomen): Abdomen has mild distention. Bowel sounds are absent. There is pain noted with palpation near surgical incision. There is been no output noted in the ostomy bag since surgery. Musculoskeletal: No calf tenderness Results & Data ([facility]) Vital Signs (Past 12 Hours) Vital Signs Temp Pulse Resp BP Pulse Ox 08/08/20 05:09 101 H 18 95/58 L 93 08/08/20 04:31 113 H 21 94/77 L 95 08/08/20 04:01 107 H 24 97/65 L 95 08/08/20 04:00 96 H 96 08/08/20 03:54 36.6 C 08/08/20 03:46 114 H 20 112/78 95 08/08/20 03:33 112 H 23 112/89 97 08/08/20 03:18 103 H 114/81 97 08/08/20 03:16 113 H 19 84/72 L 94 08/08/20 03:01 91 H 22 112/85 97 08/08/20 02:46 101 H 17 99/62 L 95 08/08/20 02:31 97 H 19 102/56 L 08/08/20 02:16 97 H 22 83/47 L 93 08/08/20 02:01 98 H 19 92/39 L 93 08/08/20 02:00 87 24 93 08/08/20 01:46 93 H 20 105/58 L 94 08/08/20 01:31 86 93/50 L 92 08/08/20 01:15 105 H 20 98/71 L 08/08/20 01:01 90 81/52 L 90 08/08/20 00:46 87 22 95/61 L 93 08/08/20 00:40 91 H 23 91/55 L 97 08/08/20 00:24 92 H 20 80/62 L 92 08/08/20 00:21 82 21 80/51 L 93 08/08/20 00:05 36.6 C 08/08/20 00:01 91 H 18 95/55 L 94 08/07/20 23:31 99 H 28 H 88/64 L 94 08/07/20 23:17 93 H 31 H 90/47 L 95 08/07/20 23:01 104 H 32 H 87/47 L 95 08/07/20 23:00 101 H 08/07/20 22:02 112 H 20 115/73 96 08/07/20 21:01 99 H 29 H 85/65 L 94 08/07/20 20:49 89 116/69 93 08/07/20 20:47 88 17 97/82 L 97 08/07/20 19:46 92 H 23 92/53 L 94 08/07/20 19:41 90 22 87/51 L 95 08/07/20 19:36 95 H 21 107/66 95 08/07/20 19:31 92 H 20 104/55 L 95 08/07/20 19:26 87 22 123/61 96 08/07/20 19:16 93 H 20 102/88 94 08/07/20 19:15 36.9 C 08/07/20 19:01 89 20 108/61 94 08/07/20 18:01 90 23 96/55 L 92 08/07/20 18:00 79 21 92 08/07/20 17:56 84 21 89/56 L 92 08/07/20 17:51 91 H 21 94/51 L 92 PG Care Time/CCT Total # of Minutes Spent Total Time Spent with Patient: Total time spent is greater than 50% in coordination of care (as documented) at patient's floor/unit and/or counseling patient: Coding Level of Care Code None Diagnoses Small bowel obstruction K56.609
[2020-08-08] MEDS: HYDROmorphone INJ 0.5 MG/0.5 ML SYR IV PRN (05:59)
[2020-08-08] MEDS: INSULIN ASPART 100 UNITS/ML 3 ML PEN SC SCH ×5 (06:02→23:59)
[2020-08-08] MEDS ORDERED: LACTATED RINGER'S 500 ML IV ONE (06:09)
--- NOTE | 2020-08-08 07:55 | Hospitalist Progress Note ---
Date of Service August 08, 2020 Assessment & Plan (1) Small bowel obstruction: -Admit to [facility] with telemetry -CT reviewed: 1. Interval development of a small bowel obstruction with a focal transition point within the deep pelvis as described above. 2. Postoperative changes consistent with resection of the distal colon and rectum with a descending colostomy. Parastomal hernia remains unchanged. 3. Chronic moderate right hydronephrosis of undetermined etiology. Caliber change is noted within the distal right ureter at the level iliac vessels. This could represent a stricture. -Consulted general surgery, discussed with Dr. Onofre via phone -Retry to place NG tube, unsuccessful in the ER thus far, once in place LIS, hold for 30 minutes after meds via NGT. Will convert meds to IV in meantime. -GI consult for hx of GI bleed and NGT placement/management -N.p.o., cont IV fluids -IV antiemetics -Pain currently controlled, wonder if narcotic caused increased confusion, as the patient is although oriented and able to provide some information, requires prompting to answer questions, saying at some points, intermittently falling asleep during exam, avoid narcotics and use IV tylenol prn. -now patient is alert oriented answering questions appropriately, will try to continue with IV Tylenol for the most part (08/07) -Recent GI bleed during admission earlier this month, monitor. - now s/p small bowel bypass w/ Dr. Onofre - in ICU (NGT placed) (2) Parastomal hernia: - Chronic, Noted on CT (3) Rectal adenocarcinoma: - Rectal bleeding in Nov 2014 prompted colonoscopy, biopsy and ultimately diagnosis of colon cancer. 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 - Followed previously with [facility] and got xeloda and XRT. (4) CAD (coronary artery disease): - hx of bypass in 2003 (5) Atrial fibrillation: -Paroxysmal, Recurred in 2017. -switched to IV metoprolol scheduled and prn on admission however was persistently in heart rates 130s and above -Cardiology was then consulted and started on Cardizem drip - now stopped d/t hypotension - cont. IV metoprolol - holding eliquis, switch to subq heparin for now, monitor for bleed (6) Hydronephrosis: -Reviewed on CT, appears to be chronic, moderate, right-sided, if worsening I's/O's or creatinine/BUN would consider nephrology/urology consultation - Follows with urology as outpt, next appt in August (7) Diabetes mellitus, type 2: -Reduce Tresiba to 9 units daily since n.p.o., ISS with Accu-Cheks, glycemic pharmacy consulted -Last A1c =7.1 on 07/20/20 (8) Hypothyroidism: -Convert home levothyroxine 50 mcg daily to IV 25 mcg daily (9) CKD (chronic kidney disease): - Cr. 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 - Due to NPO, will hold Eliquis and cont. anticoagulation with heparin subq for hx of such, and CKD. DVT ppx: - teds, scds CODE: Full Code Dispo: From home. Currently in ICU -> plan to transfer to PCU. Admission and Anticipated Discharge Date Admission Date: August 06, 2020 Subjective Patient seen in follow-up of SBO, underwent small bowel bypass with Dr. Onofre Currently lying in bed, in ICU, in no acute distress, NG tube placed Denies any fevers chills, chest pain or shortness of breath, says that she has abdominal pain after surgery when she moves but when she rests she is comfortable Discussed with perpetual inventory clerk and surgery, plan to transfer to PCU Continues to have elevated heart rates, Cardizem was stopped due to hypotension, patient received several small boluses of fluids Review of Systems Review of Systems: All systems reviewed & are unremarkable except as noted in HPI & below Constitutional: no fever and no chills Respiratory: no cough and no dyspnea Cardiovascular: no chest pain and no palpitations Gastrointestinal: no abdominal pain and no vomiting Physical Exam Physical Exam: General: WD/WN, elderly F awake, in NAD Head: Normocephalic, atraumatic ENT: PERRL, EOMI, no pharyngeal exudate, mucous membranes moist Chest: Clear to auscultation, on room air, no adventitious breath sounds Cardiac: Irregularly irregular, HR 110s, no murmur, no JVD, normal peripheral pulses, good capillary refill Abdominal: +hypoactive bowel sounds, + distended, +colostomy, + mildly tender to palpation (dressings applied post-op), no guarding Extremities: Normal inspection, no peripheral edema or erythema, calves - nontender to palpation, multiple hammertoes bilateral feet Skin: Diffuse areas of actinic keratoses over extremities Psych: Normal mood and affect Neuro: AAO x 3, speech fluent, no facial symmetry, moves extremities spontaneously Results & Data Results & Data ([facility]) Vital Signs (Past 12 Hours) Vital Signs Temp Pulse Resp BP Pulse Ox 08/08/20 06:30 108 H 26 H 89/61 L 91 08/08/20 06:16 114 H 25 H 81/67 L 93 08/08/20 06:01 102 H 22 92/45 L 94 08/08/20 05:31 103 H 26 H 90/59 L 92 08/08/20 05:09 101 H 18 95/58 L 93 08/08/20 04:31 113 H 21 94/77 L 95 08/08/20 04:01 107 H 24 97/65 L 95 08/08/20 04:00 96 H 96 08/08/20 03:54 36.6 C 08/08/20 03:46 114 H 20 112/78 95 08/08/20 03:33 112 H 23 112/89 97 08/08/20 03:18 103 H 114/81 97 08/08/20 03:16 113 H 19 84/72 L 94 08/08/20 03:01 91 H 22 112/85 97 08/08/20 02:46 101 H 17 99/62 L 95 08/08/20 02:31 97 H 19 102/56 L 08/08/20 02:16 97 H 22 83/47 L 93 08/08/20 02:01 98 H 19 92/39 L 93 08/08/20 02:00 87 24 93 08/08/20 01:46 93 H 20 105/58 L 94 08/08/20 01:31 86 93/50 L 92 08/08/20 01:15 105 H 20 98/71 L 08/08/20 01:01 90 81/52 L 90 08/08/20 00:46 87 22 95/61 L 93 08/08/20 00:40 91 H 23 91/55 L 97 08/08/20 00:24 92 H 20 80/62 L 92 08/08/20 00:21 82 21 80/51 L 93 08/08/20 00:05 36.6 C 08/08/20 00:01 91 H 18 95/55 L 94 08/07/20 23:31 99 H 28 H 88/64 L 94 08/07/20 23:17 93 H 31 H 90/47 L 95 08/07/20 23:01 104 H 32 H 87/47 L 95 08/07/20 23:00 101 H 08/07/20 22:02 112 H 20 115/73 96 08/07/20 21:01 99 H 29 H 85/65 L 94 08/07/20 20:49 89 116/69 93 08/07/20 20:47 88 17 97/82 L 97 Laboratory Results 08/08/20 08/08/20 08/08/20 Range/Units 06:01 04:38 04:38 WBC (4.8-10.8) K/uL RBC (4.2-5.4) M/uL Hgb (12.0-16.0) g/dL Hct (37-47) % MCV (80-100) fL MCH (25-34) pg MCHC (32-36) g/dL RDW Std Deviation (36.4-46.3) fL RDW Coeff of Kei (11.5-14.5) % Plt Count (130-400) K/uL MPV (7.4-10.4) fL Immature Gran % (Auto) % Neut % (Auto) % Lymph % (Auto) % Charlton % (Auto) % Eos % (Auto) % Baso % (Auto) % Neut # (Auto) (1.4-6.5) K/uL Lymph # (Auto) (1.2-3.4) K/uL Charlton # (Auto) (0.11-0.59) K/uL Eos # (Auto) (0-0.5) K/uL Baso # (Auto) (0-0.2) K/uL Immature Gran # (Auto) (0.00-0.02) K/uL Toxic Vacuolation Polychromasia APTT 27.0 (21.0-31.0) Seconds PTT Ratio 1.0 Sodium 138 (136-145) mmol/L Potassium 4.5 (3.5-5.1) mmol/L Chloride 106 (98-107) mmol/L Carbon Dioxide 24 (21-32) mmol/L Anion Gap 8.0 (3-11) BUN 45 H (7-18) mg/dl Creatinine 2.69 H D (0.6-1.2) mg/dl Est Cr Clr Drug Dosing 14.6 ml/min Est GFR ( Amer) 17.7 ml/min Est GFR (Non-Af Amer) 15.3 ml/min BUN/Creatinine Ratio 16.5 (10-20) Glucose 91 (70-99) mg/dl POC Glucose 93 (70-99) mg/dl Calcium 8.0 L (8.5-10.1) mg/dl Phosphorus 4.4 (2.5-4.9) mg/dl Magnesium 1.9 (1.8-2.4) mg/dl Total Bilirubin 0.9 (0.2-1) mg/dl AST 15 (15-37) U/L ALT 12 (12-78) U/L Alkaline Phosphatase 51 (45-117) U/L Total Protein 6.8 (6.4-8.2) gm/dl Albumin 2.7 L (3.4-5.0) gm/dl Globulin 4.1 H (2.5-4.0) gm/dl Albumin/Globulin Ratio 0.7 L (0.9-2) Nasal Screen MRSA (PCR) (Negative) 08/08/20 08/07/20 08/07/20 Range/Units 04:38 23:57 21:38 WBC 6.08 (4.8-10.8) K/uL RBC 4.06 L (4.2-5.4) M/uL Hgb 12.0 (12.0-16.0) g/dL Hct 36.9 L (37-47) % MCV 90.9 (80-100) fL MCH 29.6 (25-34) pg MCHC 32.5 (32-36) g/dL RDW Std Deviation 53.0 H (36.4-46.3) fL RDW Coeff of Kei 15.7 H (11.5-14.5) % Plt Count 196 (130-400) K/uL MPV 10.2 (7.4-10.4) fL Immature Gran % (Auto) 1.5 % Neut % (Auto) 77.3 % Lymph % (Auto) 11.5 % Charlton % (Auto) 8.7 % Eos % (Auto) 0.8 % Baso % (Auto) 0.2 % Neut # (Auto) 4.70 (1.4-6.5) K/uL Lymph # (Auto) 0.70 L (1.2-3.4) K/uL Charlton # (Auto) 0.53 (0.11-0.59) K/uL Eos # (Auto) 0.05 (0-0.5) K/uL Baso # (Auto) 0.01 (0-0.2) K/uL Immature Gran # (Auto) 0.09 H (0.00-0.02) K/uL Toxic Vacuolation 1+ Polychromasia 1+ APTT (21.0-31.0) Seconds PTT Ratio Sodium (136-145) mmol/L Potassium (3.5-5.1) mmol/L Chloride (98-107) mmol/L Carbon Dioxide (21-32) mmol/L Anion Gap (3-11) BUN (7-18) mg/dl Creatinine (0.6-1.2) mg/dl Est Cr Clr Drug Dosing ml/min Est GFR ( Amer) ml/min Est GFR (Non-Af Amer) ml/min BUN/Creatinine Ratio (10-20) Glucose (70-99) mg/dl POC Glucose 92 93 (70-99) mg/dl Calcium (8.5-10.1) mg/dl Phosphorus (2.5-4.9) mg/dl Magnesium (1.8-2.4) mg/dl Total Bilirubin (0.2-1) mg/dl AST (15-37) U/L ALT (12-78) U/L Alkaline Phosphatase (45-117) U/L Total Protein (6.4-8.2) gm/dl Albumin (3.4-5.0) gm/dl Globulin (2.5-4.0) gm/dl Albumin/Globulin Ratio (0.9-2) Nasal Screen MRSA (PCR) (Negative) 08/07/20 08/07/20 08/07/20 Range/Units 16:57 15:15 14:07 WBC (4.8-10.8) K/uL RBC (4.2-5.4) M/uL Hgb (12.0-16.0) g/dL Hct (37-47) % MCV (80-100) fL MCH (25-34) pg MCHC (32-36) g/dL RDW Std Deviation (36.4-46.3) fL RDW Coeff of Kei (11.5-14.5) % Plt Count (130-400) K/uL MPV (7.4-10.4) fL Immature Gran % (Auto) % Neut % (Auto) % Lymph % (Auto) % Charlton % (Auto) % Eos % (Auto) % Baso % (Auto) % Neut # (Auto) (1.4-6.5) K/uL Lymph # (Auto) (1.2-3.4) K/uL Charlton # (Auto) (0.11-0.59) K/uL Eos # (Auto) (0-0.5) K/uL Baso # (Auto) (0-0.2) K/uL Immature Gran # (Auto) (0.00-0.02) K/uL Toxic Vacuolation Polychromasia APTT (21.0-31.0) Seconds PTT Ratio Sodium (136-145) mmol/L Potassium (3.5-5.1) mmol/L Chloride (98-107) mmol/L Carbon Dioxide (21-32) mmol/L Anion Gap (3-11) BUN (7-18) mg/dl Creatinine (0.6-1.2) mg/dl Est Cr Clr Drug Dosing ml/min Est GFR ( Amer) ml/min Est GFR (Non-Af Amer) ml/min BUN/Creatinine Ratio (10-20) Glucose (70-99) mg/dl POC Glucose 91 115 H (70-99) mg/dl Calcium (8.5-10.1) mg/dl Phosphorus (2.5-4.9) mg/dl Magnesium (1.8-2.4) mg/dl Total Bilirubin (0.2-1) mg/dl AST (15-37) U/L ALT (12-78) U/L Alkaline Phosphatase (45-117) U/L Total Protein (6.4-8.2) gm/dl Albumin (3.4-5.0) gm/dl Globulin (2.5-4.0) gm/dl Albumin/Globulin Ratio (0.9-2) Nasal Screen MRSA (PCR) Negative (Negative) Medications Administered Current Inpatient Medications Acetaminophen (Acetaminophen 10mg/Ml Pediatric Dosing) 650 mg IV Q6H PRN PRN Reason: Pain Stop: 08/09/20 13:55 Dextrose (Dextrose 50% 50 Ml Syringe) 25 - 50 ml IV UD PRN; Protocol PRN Reason: Hypoglycemia Protocol Stop: 09/05/20 13:55 Glucagon (Glucagon For Inj 1 Mg Vial) 1 mg SQ UD PRN; Protocol PRN Reason: Hypoglycemia Protocol Stop: 09/05/20 13:55 Glucose (Glucose 10 Tabs/Tube) 4 - 8 tabs PO UD PRN; Protocol PRN Reason: Hypoglycemia Protocol Stop: 09/05/20 13:55 Heparin Sodium (Porcine) (Heparin Sod 5,000 Unit/0.5 Ml Vial) 5,000 units SQ Q12 CORTEZ Stop: 09/05/20 20:59 Last Admin: 08/07/20 22:28 Dose: 5,000 units Documented by: Hydromorphone HCl (Hydromorphone Inj 0.5 Mg/0.5 Ml Syr) 0.5 mg IV Q3HWA PRN PRN Reason: Pain 1-5 Stop: 08/21/20 14:33 Last Admin: 08/08/20 05:59 Dose: 0.5 mg Documented by: Hydromorphone HCl (Hydromorphone Inj 1 Mg/Ml Syringe) 1 mg IV Q3HWA PRN PRN Reason: Pain 6-10 Stop: 08/21/20 14:33 Last Admin: 08/07/20 17:06 Dose: 1 mg Documented by: Levothyroxine Sodium 25 mcg/ (Syringe) 1.25 mls @ 2 mls/min IV Q72H CORTEZ; Protocol Stop: 09/06/20 08:59 Last Admin: 08/07/20 09:30 Dose: 2 mls/min Documented by: Famotidine 20 mg/ Syringe 5 mls @ 2.5 mls/min IV DAILY CORTEZ Stop: 09/06/20 08:59 Last Admin: 08/07/20 09:37 Dose: 2.5 mls/min Documented by: Diltiazem HCl 125 mg/ Dextrose 125 mls @ 5 mls/hr IV .Q24H CORTEZ; Protocol Stop: 09/05/20 16:44 Last Titration: 08/08/20 00:30 Dose: Infused Documented by: Promethazine HCl 12.5 mg/ (Sodium Chloride) 50.5 mls @ 202 mls/hr IV Q6H PRN PRN Reason: Nausea And Vomiting Stop: 09/05/20 19:44 Last Infusion: 08/07/20 06:56 Dose: Infused Documented by: Cefoxitin Sodium 1,000 mg/ (Dextrose) 60 mls @ 100 mls/hr IV Q12H CORTEZ; Protocol Stop: 08/18/20 00:00 Last Infusion: 08/08/20 01:06 Dose: Infused Documented by: Lactated Ringer's (Lr) 1,000 mls @ 100 mls/hr IV .Q10H CORTEZ Stop: 09/06/20 14:33 Last Infusion: 08/08/20 06:17 Dose: 100 mls/hr Documented by: Insulin Aspart (Insulin Aspart 100 Units/Ml 3 Ml Pen) 0 units SC Q6 CORTEZ Stop: 09/05/20 17:59 Last Admin: 08/08/20 06:02 Dose: Not Given Documented by: Insulin Glargine (Insulin Glargine Solostar 100 Units/Ml 3 Ml Pen) 0 units SC HS CORTEZ; Protocol Stop: 09/07/20 20:59 Miscellaneous (Icu Protocol For Hyperglycemia) 1 ea N/A PRN PRN; Protocol PRN Reason: Hyperglycemia Protocol Stop: 08/09/20 13:21 Miscellaneous Information (Pharmacy Glycemic Mgmt Consult) 1 ea N/A UD PRN; Protocol PRN Reason: Consult Stop: 09/05/20 14:20 Ondansetron HCl (Ondansetron Inj 2 Mg/Ml 2 Ml Vial) 4 mg IV 4XDQ4H PRN PRN Reason: Nausea Stop: 09/06/20 14:33 (1) Parastomal hernia Obstruction and gangrene presence: without obstruction or gangrene Qualified Code(s): K43.5 - Parastomal hernia without obstruction or gangrene
--- NOTE | 2020-08-08 08:39 | Critical Care Progress Note ---
Date of Service August 08, 2020 Assessment & Plan (1) CKD (chronic kidney disease): (2) Small bowel obstruction: (3) Parastomal hernia: (4) Abnormal CT of the abdomen: (5) Acute kidney injury superimposed on chronic kidney disease: (6) Post-operative state: Reason Critically Ill: 85-year-old female postop day 0 from exploratory laparotomy with small bowel bypass PLAN: Neuro: Acute encephalopathy: Resolved Resp: Wean oxygen as tolerated CV: Atrial fibrillation -Rate controlled no indication for systemic anticoagulation at this time given postoperative state -On apixaban as outpatient Hypotension: Resolved -Discontinue Cardizem for hypotension -Consider transition to oral medication after return of bowel function -Metoprolol 5 mg every 6 hours empiric for rate control Fluids/Renal: Acute kidney injury on chronic kidney disease -Lactated Ringer's at 100 mL's per hour -Holding chlorthalidone ID: Antibiotics discontinued GI/Nutrition: Ice chips per surgery -Low intermittent suction of NG tube Heme: Leukopenia DVT prophylaxis: Heparin 5000 3 times daily Endocrine: ICU hyperglycemia protocol Diabetes mellitus Hypothyroidism Vascular access: Peripheral IVs Code Status: Full code Disposition: Stable for downgrade out of ICU to PCU requiring IV medications secondary to no p.o. access Admission and Anticipated Discharge Date Admission Date: August 06, 2020 Supervising Physician Co-Signing Physician Notes Discussed with general surgery stable for downgrade discussed with hospitalist team as well as bedside nursing Subjective Patient desires to stay in ICU because there are no visitors and they take good care of her here not passing gas, no stool in ostomy Patient is resting comfortably in bed. She notes her abdomen is sore and painful with palpation due to her recent surgery. She denies any nausea or vomiting. He notes her breathing is comfortable. Case was discussed with shift commander RN who notes the patient had episodes of hypotension for which she has received several small fluid boluses. No other issues identified. Review of Systems Review of Systems: As per the HPI Physical Exam Physical Exam: General: Alert and oriented nontoxic. Skin: Warm, dry, Head: Atraumatic Ears, nose, mouth and throat: airway patent, NG tube present Cardiovascular: Normal peripheral perfusion Respiratory: no respiratory distress Gastrointestinal: Surgical dressing is clean dry and intact mild tenderness with deep palpation Musculoskeletal: No deformity Results & Data Results & Data ([facility]) Vital Signs (Past 12 Hours) Vital Signs Temp Pulse Resp BP Pulse Ox 05/30/21 06:30 108 H 26 H 89/61 L 91 08/08/20 06:16 114 H 25 H 81/67 L 93 08/08/20 06:01 102 H 22 92/45 L 94 08/08/20 05:31 103 H 26 H 90/59 L 92 08/08/20 05:09 101 H 18 95/58 L 93 08/08/20 04:31 113 H 21 94/77 L 95 08/08/20 04:01 107 H 24 97/65 L 95 08/08/20 04:00 96 H 96 08/08/20 03:54 36.6 C 08/08/20 03:46 114 H 20 112/78 95 08/08/20 03:33 112 H 23 112/89 97 08/08/20 03:18 103 H 114/81 97 08/08/20 03:16 113 H 19 84/72 L 94 08/08/20 03:01 91 H 22 112/85 97 08/08/20 02:46 101 H 17 99/62 L 95 08/08/20 02:31 97 H 19 102/56 L 08/08/20 02:16 97 H 22 83/47 L 93 08/08/20 02:01 98 H 19 92/39 L 93 08/08/20 02:00 87 24 93 08/08/20 01:46 93 H 20 105/58 L 94 08/08/20 01:31 86 93/50 L 92 08/08/20 01:15 105 H 20 98/71 L 08/08/20 01:01 90 81/52 L 90 08/08/20 00:46 87 22 95/61 L 93 08/08/20 00:40 91 H 23 91/55 L 97 08/08/20 00:24 92 H 20 80/62 L 92 08/08/20 00:21 82 21 80/51 L 93 08/08/20 00:05 36.6 C 08/08/20 00:01 91 H 18 95/55 L 94 08/07/20 23:31 99 H 28 H 88/64 L 94 08/07/20 23:17 93 H 31 H 90/47 L 95 08/07/20 23:01 104 H 32 H 87/47 L 95 08/07/20 23:00 101 H 08/07/20 22:02 112 H 20 115/73 96 08/07/20 21:01 99 H 29 H 85/65 L 94 08/07/20 20:49 89 116/69 93 08/07/20 20:47 88 17 97/82 L 97 Coding Level of Care Code 02235 Subseq Hosp Care Lv 3 Diagnoses CKD (chronic kidney disease) N18.9 Small bowel obstruction K56.609 Parastomal hernia K43.5 Obstruction and gangrene presence: without obstruction or gangrene Abnormal CT of the abdomen R93.5 Acute kidney injury superimposed on chronic kidney disease N17.9; N18.9 Post-operative state Z98.890 (1) Parastomal hernia Obstruction and gangrene presence: without obstruction or gangrene Qualified Code(s): K43.5 - Parastomal hernia without obstruction or gangrene
[2020-08-08] MEDS ORDERED: METOPROLOL TARTRATE 1 MG/ML VIAL IV ONE (09:09)
[2020-08-08] MEDS: FAMOTIDINE 20 MG in SYRINGE 3 ML IV SCH (09:14)
[2020-08-08] MEDS: HEPARIN SOD 5,000 UNIT/0.5 ML VIAL SQ SCH ×2 (09:15→20:39)
[2020-08-08] MEDS: METOPROLOL TARTRATE 1 MG/ML VIAL IV SCH ×2 (12:52→18:06)
[2020-08-08] MEDS: dilTIAZem HCL 125 MG in DEXTROSE 5% 100 ML IV SCH (13:00)
[2020-08-08] MEDS ORDERED: ACETAMINOPHEN 1,000 MG/100 ML VIAL IV SCH (16:00)
[2020-08-08] MEDS ORDERED: Nursing to Pharmacy 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 SCH (20:30)
[2020-08-08] MEDS ORDERED: INSULIN GLARGINE SOLOSTAR 100 UNITS/ML 3 ML PEN SC SCH ×2 (21:00)
[2020-08-08] MEDS ORDERED: ACETAMINOPHEN 65 ML IV PRN (22:08)
[2020-08-09] MEDS: METOPROLOL TARTRATE 1 MG/ML VIAL IV SCH ×4 (00:35→17:52)
[2020-08-09] MEDS ORDERED: ACETAMINOPHEN 1,000 MG/100 ML VIAL IV PRN (04:00)
[2020-08-09] MEDS: INSULIN ASPART 100 UNITS/ML 3 ML PEN SC SCH ×3 (06:06→17:49)
[2020-08-09] MEDS: D5W AND NSS 1,000 ML IV SCH ×2 (06:15→16:17)
[2020-08-09 06:17] LABS: Hematocrit (blood only) 34.2 % (37-47); Hemoglobin 11.1 g/dL (12.0-16.0); Mean Corpuscular Hemoglobin 30.2 pg (25-34); Mean Corpuscular Hgb Conc 32.5 g/dL (32-36); Mean Corpuscular Volume 92.9 fL (80-100); Mean Platelet Volume 10.1 fL (7.4-10.4); Platelet Count 216 K/uL (130-400); RDW Coefficient of Variation 15.8 % (11.5-14.5); RDW Standard Deviation 53.4 fL (36.4-46.3); Red Blood Count 3.68 M/uL (4.2-5.4); White Blood Count 4.08 K/uL (4.8-10.8)
--- NOTE | 2020-08-09 06:36 | Surgery Progress Note ---
Date of Service August 09, 2020 Assessment & Plan (1) Small bowel obstruction: Status post laparotomy with lysis of adhesions and small bowel anastomosis Patient resting comfortably without significant pain medication Her urine output is improved and relatively light and clear, NG output has decreased Laboratories are pending Continue with n.p.o., NG, [place], ice only with IV antibiotics Await return of GI function Check a.m. laboratories (2) S/P laparotomy: Admission and Anticipated Discharge Date Admission Date: August 06, 2020 Results & Data ([facility]) Vital Signs (Past 12 Hours) Vital Signs Temp Pulse Pulse Resp BP BP Pulse Ox 08/09/20 06:09 115 H 124/72 08/09/20 03:00 37.0 C 94 H 16 109/59 L 94 08/09/20 00:35 103 H 98/66 L 08/09/20 00:00 115 H 08/08/20 22:24 36.7 C 109 H 20 99/67 L 94 08/08/20 19:00 36.7 C 126 H 20 108/66 94 PG Care Time/CCT Total # of Minutes Spent Total Time Spent with Patient: Total time spent is greater than 50% in coordination of care (as documented) at patient's floor/unit and/or counseling patient: Coding Level of Care Code None Diagnoses Small bowel obstruction K56.609 S/P laparotomy Z98.890
[2020-08-09 06:51] LABS: Albumin Level 2.6 gm/dl (3.4-5.0); BUN Creatinine Ratio 18.7 (10-20); Creatinine Clr Calc Pharmacy 19.2 ml/min; Est GFR (African American) 23.9 ml/min; Est GFR (Non-African American) 20.6 ml/min; Magnesium 1.9 mg/dl (1.8-2.4); Potassium 3.9 mmol/L (3.5-5.1)
[2020-08-09 07:03] LABS: Albumin Globulin Ratio 0.7 (0.9-2); Bilirubin,Total 0.7 mg/dl (0.2-1); Phosphorus 2.5 mg/dl (2.5-4.9); Total Protein 6.6 gm/dl (6.4-8.2)
--- NOTE | 2020-08-09 07:37 | Hospitalist Progress Note ---
Date of Service August 09, 2020 Assessment & Plan (1) Small bowel obstruction: -CT reviewed: 1. Interval development of a small bowel obstruction with a focal transition point within the deep pelvis as described above. 2. Postoperative changes consistent with resection of the distal colon and rectum with a descending colostomy. Parastomal hernia remains unchanged. 3. Chronic moderate right hydronephrosis of undetermined etiology. Caliber change is noted within the distal right ureter at the level iliac vessels. This could represent a stricture. -Consulted general surgery, Dr. Onofre -GI consult for hx of GI bleed and NGT placement/management -N.p.o., cont IV fluids -IV antiemetics - avoid narcotics and use IV tylenol prn. pt seems to get confused w/ narcotics - now s/p ex lap and small bowel anastomosis, w/ Dr. Onofre (08/07) - in PCU (NGT placed) -Recent GI bleed during admission earlier this month, monitor. (2) Parastomal hernia: - Chronic, Noted on CT (3) Rectal adenocarcinoma: - Rectal bleeding in Nov 2014 prompted colonoscopy, biopsy and ultimately diagnosis of colon cancer. 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 - Followed previously with [facility] and got xeloda and XRT. (4) CAD (coronary artery disease): - hx of bypass in 2003 (5) Atrial fibrillation: -Paroxysmal, Recurred in 2016. -switched to IV metoprolol scheduled and prn on admission however was persistently in heart rates 130s and above -Cardiology was then consulted and started on Cardizem drip - now stopped d/t hypotension - cont. IV metoprolol - holding eliquis, switched by to subq heparin for now, monitor for bleed (6) Hydronephrosis: -Reviewed on CT, appears to be chronic, moderate, right-sided, if worsening I's/O's or creatinine/BUN would consider nephrology/urology consultation - Follows with urology as outpt, next appt in August (7) Diabetes mellitus, type 2: -Reduce Tresiba to 9 units daily since n.p.o., ISS with Accu-Cheks, glycemic pharmacy consulted -Last A1c =7.1 on 07/20/20 (8) Hypothyroidism: -Convert home levothyroxine 50 mcg daily to IV 25 mcg daily (9) CKD (chronic kidney disease): - Cr. 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 - Due to NPO, will hold Eliquis and cont. anticoagulation with heparin subq for hx of such, and CKD. DVT ppx: - teds, scds CODE: Full Code Dispo: From home. PCU. Admission and Anticipated Discharge Date Admission Date: August 06, 2020 Subjective Patient seen in follow-up of SBO, underwent ex lap and small bowel anastomosis with Dr. Onofre Currently lying in bed, in PCU, in no acute distress, NG tube placed Denies any fevers chills, chest pain or shortness of breath, says that she has abdominal pain after surgery when she moves but when she rests she is comfortable Continued to have elevated heart rates, Cardizem was stopped due to hypotension, now HR and BP better controlled Review of Systems Review of Systems: All systems reviewed & are unremarkable except as noted in HPI & below Constitutional: no fever and no chills Respiratory: no cough and no dyspnea Cardiovascular: no chest pain and no palpitations Gastrointestinal: + abdominal pain (minimal post-op); no nausea and no vomiting Physical Exam Physical Exam: General: WD/WN, elderly F awake, in NAD Head: Normocephalic, atraumatic ENT: PERRL, EOMI, no pharyngeal exudate, mucous membranes moist Chest: Clear to auscultation, on room air, no adventitious breath sounds Cardiac: Irregularly irregular, HR 110s, no murmur, no JVD, normal peripheral pulses, good capillary refill Abdominal: +hypoactive bowel sounds, + distended, +colostomy, + mildly tender to palpation (dressings applied post-op), no guarding Extremities: Normal inspection, no peripheral edema or erythema, calves - nontender to palpation, multiple hammertoes bilateral feet Skin: Diffuse areas of actinic keratoses over extremities Psych: Normal mood and affect Neuro: AAO x 3, speech fluent, no facial symmetry, moves extremities spontaneously Results & Data Results & Data ([facility]) Vital Signs (Past 12 Hours) Vital Signs Temp Pulse Pulse Resp BP BP Pulse Ox 08/09/20 07:16 36.9 C 95 H 15 122/70 95 08/09/20 06:09 115 H 124/72 08/09/20 03:00 37.0 C 94 H 16 109/59 L 94 08/09/20 00:35 103 H 98/66 L 08/09/20 00:00 115 H 08/08/20 22:24 36.7 C 109 H 20 99/67 L 94 Laboratory Results 08/09/20 08/09/20 08/09/20 Range/Units 06:06 06:06 05:52 WBC 4.08 L (4.8-10.8) K/uL RBC 3.68 L (4.2-5.4) M/uL Hgb 11.1 L (12.0-16.0) g/dL Hct 34.2 L (37-47) % MCV 92.9 (80-100) fL MCH 30.2 (25-34) pg MCHC 32.5 (32-36) g/dL RDW Std Deviation 53.4 H (36.4-46.3) fL RDW Coeff of Kei 15.8 H (11.5-14.5) % Plt Count 216 (130-400) K/uL MPV 10.1 (7.4-10.4) fL Sodium 139 (136-145) mmol/L Potassium 3.9 (3.5-5.1) mmol/L Chloride 106 (98-107) mmol/L Carbon Dioxide 27 (21-32) mmol/L Anion Gap 6.0 (3-11) BUN 39 H (7-18) mg/dl Creatinine 2.10 H D (0.6-1.2) mg/dl Est Cr Clr Drug Dosing 19.2 ml/min Est GFR ( Amer) 23.9 ml/min Est GFR (Non-Af Amer) 20.6 ml/min BUN/Creatinine Ratio 18.7 (10-20) Glucose 75 (70-99) mg/dl POC Glucose 78 (70-99) mg/dl Calcium 8.0 L (8.5-10.1) mg/dl Phosphorus 2.5 D (2.5-4.9) mg/dl Magnesium 1.9 (1.8-2.4) mg/dl Total Bilirubin 0.7 (0.2-1) mg/dl AST 10 L (15-37) U/L ALT 9 L (12-78) U/L Alkaline Phosphatase 53 (45-117) U/L Total Protein 6.6 (6.4-8.2) gm/dl Albumin 2.6 L (3.4-5.0) gm/dl Globulin 4.0 (2.5-4.0) gm/dl Albumin/Globulin Ratio 0.7 L (0.9-2) 08/08/20 08/08/20 08/08/20 Range/Units 23:51 18:04 11:54 WBC (4.8-10.8) K/uL RBC (4.2-5.4) M/uL Hgb (12.0-16.0) g/dL Hct (37-47) % MCV (80-100) fL MCH (25-34) pg MCHC (32-36) g/dL RDW Std Deviation (36.4-46.3) fL RDW Coeff of Kei (11.5-14.5) % Plt Count (130-400) K/uL MPV (7.4-10.4) fL Sodium (136-145) mmol/L Potassium (3.5-5.1) mmol/L Chloride (98-107) mmol/L Carbon Dioxide (21-32) mmol/L Anion Gap (3-11) BUN (7-18) mg/dl Creatinine (0.6-1.2) mg/dl Est Cr Clr Drug Dosing ml/min Est GFR ( Amer) ml/min Est GFR (Non-Af Amer) ml/min BUN/Creatinine Ratio (10-20) Glucose (70-99) mg/dl POC Glucose 99 90 103 H (70-99) mg/dl Calcium (8.5-10.1) mg/dl Phosphorus (2.5-4.9) mg/dl Magnesium (1.8-2.4) mg/dl Total Bilirubin (0.2-1) mg/dl AST (15-37) U/L ALT (12-78) U/L Alkaline Phosphatase (45-117) U/L Total Protein (6.4-8.2) gm/dl Albumin (3.4-5.0) gm/dl Globulin (2.5-4.0) gm/dl Albumin/Globulin Ratio (0.9-2) Medications Administered Current Inpatient Medications Dextrose (Dextrose 50% 50 Ml Syringe) 25 - 50 ml IV UD PRN; Protocol PRN Reason: Hypoglycemia Protocol Stop: 09/05/20 13:55 Glucagon (Glucagon For Inj 1 Mg Vial) 1 mg SQ UD PRN; Protocol PRN Reason: Hypoglycemia Protocol Stop: 09/05/20 13:55 Glucose (Glucose 10 Tabs/Tube) 4 - 8 tabs PO UD PRN; Protocol PRN Reason: Hypoglycemia Protocol Stop: 09/05/20 13:55 Heparin Sodium (Porcine) (Heparin Sod 5,000 Unit/0.5 Ml Vial) 5,000 units SQ Q12 [facility] Stop: 09/05/20 20:59 Last Admin: 08/08/20 20:39 Dose: 5,000 units Documented by: Hydromorphone HCl (Hydromorphone Inj 0.5 Mg/0.5 Ml Syr) 0.5 mg IV Q3HWA PRN PRN Reason: Pain 1-5 Stop: 08/21/20 14:33 Last Admin: 08/08/20 05:59 Dose: 0.5 mg Documented by: Levothyroxine Sodium 25 mcg/ (Syringe) 1.25 mls @ 2 mls/min IV Q72H [facility]; Protocol Stop: 09/06/20 08:59 Last Admin: 08/07/20 09:30 Dose: 2 mls/min Documented by: Famotidine 20 mg/ Syringe 5 mls @ 2.5 mls/min IV DAILY [facility] Stop: 09/06/20 08:59 Last Admin: 08/08/20 09:14 Dose: 2.5 mls/min Documented by: Diltiazem HCl 125 mg/ Dextrose 125 mls @ 5 mls/hr IV .Q24H [facility]; Protocol Stop: 09/05/20 16:44 Last Admin: 08/08/20 13:00 Dose: Not Given Documented by: Promethazine HCl 12.5 mg/ (Sodium Chloride) 50.5 mls @ 202 mls/hr IV Q6H PRN PRN Reason: Nausea And Vomiting Stop: 09/05/20 19:44 Last Infusion: 08/07/20 06:56 Dose: Infused Documented by: Cefoxitin Sodium 1,000 mg/ (Dextrose) 60 mls @ 100 mls/hr IV Q12H [facility]; Protocol Stop: 08/18/20 00:00 Last Infusion: 08/09/20 00:38 Dose: Infused Documented by: Acetaminophen (Ofirmev) 1,000 mg in 100 mls @ 400 mls/hr IV Q6H PRN PRN Reason: Pain Stop: 08/12/20 03:59 Dextrose/Sodium Chloride (D5w And Nss) 1,000 mls @ 100 mls/hr IV .Q10H [facility] Stop: 09/08/20 06:14 Last Admin: 08/09/20 06:15 Dose: 100 mls/hr Documented by: Insulin Aspart (Insulin Aspart 100 Units/Ml 3 Ml Pen) 0 units SC Q6 [facility] Stop: 09/05/20 17:59 Last Admin: 08/09/20 06:06 Dose: Not Given Documented by: Insulin Glargine (Insulin Glargine Solostar 100 Units/Ml 3 Ml Pen) 0 units SC [facility]; Protocol Stop: 09/08/20 20:59 Metoprolol Tartrate (Metoprolol Tartrate 1 Mg/Ml Vial) 5 mg IV Q6 [facility] Stop: 09/07/20 11:59 Last Admin: 08/09/20 06:09 Dose: 5 mg Documented by: Miscellaneous (Icu Protocol For Hyperglycemia) 1 ea N/A PRN PRN; Protocol PRN Reason: Hyperglycemia Protocol Stop: 08/09/20 13:21 Miscellaneous Information (Pharmacy Glycemic Mgmt Consult) 1 ea N/A UD PRN; Protocol PRN Reason: Consult Stop: 09/05/20 14:20 Ondansetron HCl (Ondansetron Inj 2 Mg/Ml 2 Ml Vial) 4 mg IV 4XDQ4H PRN PRN Reason: Nausea Stop: 09/06/20 14:33 (1) Parastomal hernia Obstruction and gangrene presence: without obstruction or gangrene Qualified Code(s): K43.5 - Parastomal hernia without obstruction or gangrene
[2020-08-09] MEDS: FAMOTIDINE 20 MG in SYRINGE 3 ML IV SCH (09:07)
[2020-08-09] MEDS: HEPARIN SOD 5,000 UNIT/0.5 ML VIAL SQ SCH ×2 (09:09→21:33)
[2020-08-09] MEDS: INSULIN GLARGINE SOLOSTAR 100 UNITS/ML 3 ML PEN SC SCH (21:34)
[2020-08-10] MEDS: INSULIN ASPART 100 UNITS/ML 3 ML PEN SC SCH ×4 (00:16→18:19)
[2020-08-10] MEDS: METOPROLOL TARTRATE 1 MG/ML VIAL IV SCH ×4 (00:20→18:17)
[2020-08-10] MEDS: D5W AND NSS 1,000 ML IV SCH ×2 (02:13→12:03)
[2020-08-10] MEDS ORDERED: DEXTROSE 10% 1,000 ML IV PRN (08:03)
--- NOTE | 2020-08-10 08:06 | Surgery Progress Note ---
Date of Service August 10, 2020 Assessment & Plan (1) S/P laparotomy: Patient with small bowel anastomosis Minimal to moderate NG output No significant colostomy output, abdomen is distended and decreased bowel sounds We will continue with NG tube and limited p.o. to ice chips We will order a PICC line and TPN or PPN as calories will help patient especially protein status Continue supportive care including antibiotics Admission and Anticipated Discharge Date Admission Date: August 06, 2020 Results & Data ([facility]) Vital Signs (Past 12 Hours) Vital Signs Temp Pulse Pulse Resp BP BP Pulse Ox 08/10/20 07:24 36.5 C 96 H 17 145/99 H 95 08/10/20 06:46 105 H 144/98 H 08/10/20 03:49 36.4 C L 99 H 24 135/94 100 08/10/20 00:20 105 H 120/90 08/10/20 00:00 114 H 08/09/20 23:47 36.3 C L 103 H 22 120/90 96 PG Care Time/CCT Total # of Minutes Spent Total Time Spent with Patient: Total time spent is greater than 50% in coordination of care (as documented) at patient's floor/unit and/or counseling patient: Coding Level of Care Code None Diagnoses S/P laparotomy Z98.890
[2020-08-10 08:47] LABS: Hematocrit (blood only) 36.8 % (37-47); Hemoglobin 12.1 g/dL (12.0-16.0); Mean Corpuscular Hemoglobin 29.7 pg (25-34); Mean Corpuscular Volume 90.2 fL (80-100); Mean Platelet Volume 9.7 fL (7.4-10.4); Platelet Count 263 K/uL (130-400); RDW Coefficient of Variation 15.4 % (11.5-14.5); RDW Standard Deviation 51.6 fL (36.4-46.3); Red Blood Count 4.08 M/uL (4.2-5.4)
[2020-08-10] MEDS: LEVOTHYROXINE SODIUM 25 MCG in SYRINGE 0 ML IV SCH (08:51)
[2020-08-10] MEDS: FAMOTIDINE 20 MG in SYRINGE 3 ML IV SCH (08:51)
[2020-08-10 09:04] LABS: BUN Creatinine Ratio 17.5 (10-20); Calcium 8.2 mg/dl (8.5-10.1); Creatinine Clr Calc Pharmacy 25.7 ml/min; Est GFR (African American) 34.8 ml/min; Potassium 3.5 mmol/L (3.5-5.1)
[2020-08-10 09:15] LABS: Bilirubin,Total 0.6 mg/dl (0.2-1); Phosphorus 1.3 mg/dl (2.5-4.9)
[2020-08-10 09:27] LABS: Mean Corpuscular Hgb Conc 32.9 g/dL (32-36)
[2020-08-10] MEDS: HEPARIN SOD 5,000 UNIT/0.5 ML VIAL SQ SCH ×2 (09:31→22:33)
[2020-08-10] MEDS ORDERED: POTASSIUM PHOS 3 MMOL/1 ML INFUSION IV STA (09:37)
--- NOTE | 2020-08-10 09:39 | Hospitalist Progress Note ---
Date of Service August 10, 2020 Assessment & Plan (1) Small bowel obstruction: -CT reviewed: 1. Interval development of a small bowel obstruction with a focal transition point within the deep pelvis as described above. 2. Postoperative changes consistent with resection of the distal colon and rectum with a descending colostomy. Parastomal hernia remains unchanged. 3. Chronic moderate right hydronephrosis of undetermined etiology. Caliber change is noted within the distal right ureter at the level iliac vessels. This could represent a stricture. -Consulted general surgery, Dr. Onofre -GI consult for hx of GI bleed and NGT placement/management -N.p.o., cont IV fluids -IV antiemetics - avoid narcotics and use IV tylenol prn. pt seems to get confused w/ narcotics - now s/p ex lap and small bowel anastomosis, w/ Dr. Onofre (08/07) - in PCU (NGT placed) -Plan for PICC line and TPN -Continue IV antibiotic -Recent GI bleed during admission earlier this month, monitor. Hypophosphatemia -Replace and monitor (2) Parastomal hernia: - Chronic, Noted on CT (3) Rectal adenocarcinoma: - Rectal bleeding in Nov 2014 prompted colonoscopy, biopsy and ultimately diagnosis of colon cancer. 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 - Followed previously with [facility] and got xeloda and XRT. (4) CAD (coronary artery disease): - hx of bypass in 2003 (5) Atrial fibrillation: -Paroxysmal, Recurred in 2017. -switched to IV metoprolol scheduled and prn on admission however was persistently in heart rates 130s and above -Cardiology was then consulted and started on Cardizem drip - now stopped d/t hypotension - cont. IV metoprolol - holding eliquis, switched by to subq heparin for now, monitor for bleed (6) Hydronephrosis: -Reviewed on CT, appears to be chronic, moderate, right-sided, if worsening I's/O's or creatinine/BUN would consider nephrology/urology consultation - Follows with urology as outpt, next appt in August (7) Diabetes mellitus, type 2: -Reduce Tresiba to 9 units daily since n.p.o., ISS with Accu-Cheks, glycemic pharmacy consulted -Last A1c =7.1 on 07/20/20 (8) Hypothyroidism: -Convert home levothyroxine 50 mcg daily to IV 25 mcg daily (9) CKD (chronic kidney disease): - Cr. 1.88 on admission, baseline appears to be 1.4, monitor BMP with am labs - likely prerenal etiology - Cr elevated post-op Cr 2.7 - Current Cr 1.5 (resolved), cont. 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 - Due to NPO, will hold Eliquis and cont. anticoagulation with heparin subq for hx of such, and CKD. DVT ppx: - teds, scds CODE: Full Code Dispo: From home. PCU. Admission and Anticipated Discharge Date Admission Date: August 06, 2020 Subjective Patient seen in follow-up of SBO, underwent ex lap and small bowel anastomosis with Dr. Onofre Currently lying in bed, in PCU, in no acute distress, NG tube placed Denies any fevers chills, chest pain or shortness of breath, says that she has abdominal pain after surgery when she moves but when she rests she is comfortable On and off nausea Continued to have elevated heart rates, Cardizem was stopped due to hypotension, now HR and BP better controlled Review of Systems Review of Systems: All systems reviewed & are unremarkable except as noted in HPI & below Constitutional: no fever and no chills Respiratory: no cough and no dyspnea Cardiovascular: no chest pain and no palpitations Gastrointestinal: + abdominal pain (minimal post-op) and + nausea Physical Exam Physical Exam: General: WD/WN, elderly F awake, in NAD Head: Normocephalic, atraumatic ENT: PERRL, EOMI, no pharyngeal exudate, mucous membranes moist Chest: Clear to auscultation, on room air, no adventitious breath sounds Cardiac: Irregularly irregular, HR 110s, no murmur, no JVD, normal peripheral pulses, good capillary refill Abdominal: +hypoactive bowel sounds, + distended, +colostomy, + mildly tender to palpation (dressings applied post-op), no guarding Extremities: Normal inspection, no peripheral edema or erythema, calves - nontender to palpation, multiple hammertoes bilateral feet Skin: Diffuse areas of actinic keratoses over extremities Psych: Normal mood and affect Neuro: AAO x 3, speech fluent, no facial symmetry, moves extremities spontaneously Results & Data Results & Data ([facility]) Vital Signs (Past 12 Hours) Vital Signs Temp Pulse Pulse Resp BP BP Pulse Ox 08/10/20 07:24 36.5 C 96 H 17 145/99 H 95 08/10/20 06:46 105 H 144/98 H 08/10/20 03:49 36.4 C L 99 H 24 135/94 100 08/10/20 00:20 105 H 120/90 08/10/20 00:00 114 H 08/09/20 23:47 36.3 C L 103 H 22 120/90 96 Laboratory Results 08/10/20 08/10/20 08/10/20 Range/Units 08:34 08:34 06:41 WBC 5.50 (4.8-10.8) K/uL RBC 4.08 L (4.2-5.4) M/uL Hgb 12.1 (12.0-16.0) g/dL Hct 36.8 L (37-47) % MCV 90.2 (80-100) fL MCH 29.7 (25-34) pg MCHC 32.9 (32-36) g/dL RDW Std Deviation 51.6 H (36.4-46.3) fL RDW Coeff of Kei 15.4 H (11.5-14.5) % Plt Count 263 (130-400) K/uL MPV 9.7 (7.4-10.4) fL Sodium 138 (136-145) mmol/L Potassium 3.5 (3.5-5.1) mmol/L Chloride 107 (98-107) mmol/L Carbon Dioxide 25 (21-32) mmol/L Anion Gap 6.0 (3-11) BUN 27 H (7-18) mg/dl Creatinine 1.54 H D (0.6-1.2) mg/dl Est Cr Clr Drug Dosing 25.7 ml/min Est GFR ( Amer) 34.8 ml/min Est GFR (Non-Af Amer) 30.0 ml/min BUN/Creatinine Ratio 17.5 (10-20) Glucose 173 H (70-99) mg/dl POC Glucose 162 H (70-99) mg/dl Calcium 8.2 L (8.5-10.1) mg/dl Phosphorus 1.3 L* D (2.5-4.9) mg/dl Magnesium 2.0 (1.8-2.4) mg/dl Total Bilirubin 0.6 (0.2-1) mg/dl AST 10 L (15-37) U/L ALT 8 L (12-78) U/L Alkaline Phosphatase 61 (45-117) U/L Triglycerides 143 (0-150) mg/dl 08/09/20 08/09/20 08/09/20 Range/Units 23:54 21:08 17:47 WBC (4.8-10.8) K/uL RBC (4.2-5.4) M/uL Hgb (12.0-16.0) g/dL Hct (37-47) % MCV (80-100) fL MCH (25-34) pg MCHC (32-36) g/dL RDW Std Deviation (36.4-46.3) fL RDW Coeff of Kei (11.5-14.5) % Plt Count (130-400) K/uL MPV (7.4-10.4) fL Sodium (136-145) mmol/L Potassium (3.5-5.1) mmol/L Chloride (98-107) mmol/L Carbon Dioxide (21-32) mmol/L Anion Gap (3-11) BUN (7-18) mg/dl Creatinine (0.6-1.2) mg/dl Est Cr Clr Drug Dosing ml/min Est GFR ( Amer) ml/min Est GFR (Non-Af Amer) ml/min BUN/Creatinine Ratio (10-20) Glucose (70-99) mg/dl POC Glucose 186 H 171 H 153 H (70-99) mg/dl Calcium (8.5-10.1) mg/dl Phosphorus (2.5-4.9) mg/dl Magnesium (1.8-2.4) mg/dl Total Bilirubin (0.2-1) mg/dl AST (15-37) U/L ALT (12-78) U/L Alkaline Phosphatase (45-117) U/L Triglycerides (0-150) mg/dl 08/09/20 Range/Units 11:56 WBC (4.8-10.8) K/uL RBC (4.2-5.4) M/uL Hgb (12.0-16.0) g/dL Hct (37-47) % MCV (80-100) fL MCH (25-34) pg MCHC (32-36) g/dL RDW Std Deviation (36.4-46.3) fL RDW Coeff of Kei (11.5-14.5) % Plt Count (130-400) K/uL MPV (7.4-10.4) fL Sodium (136-145) mmol/L Potassium (3.5-5.1) mmol/L Chloride (98-107) mmol/L Carbon Dioxide (21-32) mmol/L Anion Gap (3-11) BUN (7-18) mg/dl Creatinine (0.6-1.2) mg/dl Est Cr Clr Drug Dosing ml/min Est GFR ( Amer) ml/min Est GFR (Non-Af Amer) ml/min BUN/Creatinine Ratio (10-20) Glucose (70-99) mg/dl POC Glucose 129 H (70-99) mg/dl Calcium (8.5-10.1) mg/dl Phosphorus (2.5-4.9) mg/dl Magnesium (1.8-2.4) mg/dl Total Bilirubin (0.2-1) mg/dl AST (15-37) U/L ALT (12-78) U/L Alkaline Phosphatase (45-117) U/L Triglycerides (0-150) mg/dl Medications Administered Current Inpatient Medications Dextrose (Dextrose 50% 50 Ml Syringe) 25 - 50 ml IV UD PRN; Protocol PRN Reason: Hypoglycemia Protocol Stop: 09/05/20 13:55 Glucagon (Glucagon For Inj 1 Mg Vial) 1 mg SQ UD PRN; Protocol PRN Reason: Hypoglycemia Protocol Stop: 09/05/20 13:55 Glucose (Glucose 10 Tabs/Tube) 4 - 8 tabs PO UD PRN; Protocol PRN Reason: Hypoglycemia Protocol Stop: 09/05/20 13:55 Heparin Sodium (Porcine) (Heparin Sod 5,000 Unit/0.5 Ml Vial) 5,000 units SQ Q12 [facility] Stop: 09/05/20 20:59 Last Admin: 08/10/20 09:31 Dose: Not Given Documented by: Hydromorphone HCl (Hydromorphone Inj 0.5 Mg/0.5 Ml Syr) 0.5 mg IV Q3HWA PRN PRN Reason: Pain 1-5 Stop: 08/21/20 14:33 Last Admin: 08/08/20 05:59 Dose: 0.5 mg Documented by: Levothyroxine Sodium 25 mcg/ (Syringe) 1.25 mls @ 2 mls/min IV Q72H [facility]; Protocol Stop: 09/06/20 08:59 Last Admin: 08/10/20 08:51 Dose: 2 mls/min Documented by: Famotidine 20 mg/ Syringe 5 mls @ 2.5 mls/min IV DAILY [facility] Stop: 09/06/20 08:59 Last Admin: 08/10/20 08:51 Dose: 2.5 mls/min Documented by: Promethazine HCl 12.5 mg/ (Sodium Chloride) 50.5 mls @ 202 mls/hr IV Q6H PRN PRN Reason: Nausea And Vomiting Stop: 09/05/20 19:44 Last Infusion: 08/07/20 06:56 Dose: Infused Documented by: Cefoxitin Sodium 1,000 mg/ (Dextrose) 60 mls @ 100 mls/hr IV Q12H [facility]; Protocol Stop: 08/18/20 00:00 Last Infusion: 08/10/20 01:27 Dose: Infused Documented by: Acetaminophen (Ofirmev) 1,000 mg in 100 mls @ 400 mls/hr IV Q6H PRN PRN Reason: Pain Stop: 08/12/20 03:59 Last Infusion: 08/09/20 22:09 Dose: Infused Documented by: Dextrose/Sodium Chloride (D5w And Nss) 1,000 mls @ 100 mls/hr IV .Q10H [facility] Stop: 09/08/20 06:14 Last Admin: 08/10/20 02:13 Dose: 100 mls/hr Documented by: Dextrose (D10w) 1,000 mls @ 0 mls/hr IV .Q0M PRN PRN Reason: protocol (see label comments) Stop: 09/09/20 08:02 Insulin Aspart (Insulin Aspart 100 Units/Ml 3 Ml Pen) 0 units SC Q6 [facility] Stop: 09/05/20 17:59 Last Admin: 08/10/20 06:41 Dose: 1 units Documented by: Insulin Glargine (Insulin Glargine Solostar 100 Units/Ml 3 Ml Pen) 0 units SC HS [facility]; Protocol Stop: 09/08/20 20:59 Last Admin: 08/09/20 21:34 Dose: 9 units Documented by: Metoprolol Tartrate (Metoprolol Tartrate 1 Mg/Ml Vial) 5 mg IV Q6 [facility] Stop: 09/07/20 11:59 Last Admin: 08/10/20 06:46 Dose: 5 mg Documented by: Miscellaneous Information (Pharmacy Glycemic Mgmt Consult) 1 ea N/A UD PRN; Protocol PRN Reason: Consult Stop: 09/05/20 14:20 Miscellaneous Information (Tpn/Ppn Consult Pharmacy) 1 ea N/A NOW STA Stop: 08/10/20 08:04 Ondansetron HCl (Ondansetron Inj 2 Mg/Ml 2 Ml Vial) 4 mg IV 4XDQ4H PRN PRN Reason: Nausea Stop: 09/06/20 14:33 Potassium Phosphate (Potassium Phos 3 Mmol/1 Ml Infusion) 24 mmol IV NOW STA Stop: 08/10/20 09:38 (1) Parastomal hernia Obstruction and gangrene presence: without obstruction or gangrene Qualified Code(s): K43.5 - Parastomal hernia without obstruction or gangrene
[2020-08-10] MEDS ORDERED: POTASSIUM PHOSPHATE 24 MMOL in SODIUM CHLORIDE 0.9% 500 ML IV ONE (09:45)
[2020-08-10] MEDS: HYDROmorphone INJ 0.5 MG/0.5 ML SYR IV PRN (09:57)
--- NOTE | 2020-08-10 11:07 | XRay Report ---
XR chest 1V portable CLINICAL HISTORY: Right-sided PICC catheter POSSIBLE MALPOSITION COMPARISON STUDY: Chest x-ray dated 08/07/2020 FINDINGS: The study is rotated. The heart is enlarged. There is aortic tortuosity. There is radiograp hic evidence of pulmonary vascular congestion/fluid overload. There is a small right pleural effusion with right basilar airspace opacities. There is an enteric tube which passes into the stomach. The p atient's right-sided PICC catheter is looped within the right internal jugular vein.[ IMPRESSION: 1. The patient's right-sided PICC catheter is looped within the right internal jugular vein 2. Cardiomegaly, radiographic evidence of congestive failure/fluid overload 3. Small right pleural effusion with right basilar airspace opacities ACT 112: Negative or not required by law. Electronically signed by: Praneeth Yuen M.D. 08/10/2020 11:05 AM
--- NOTE | 2020-08-10 12:21 | XRay Report ---
XR chest 1V portable CLINICAL HISTORY: PICC tip placement COMPARISON STUDY: 08/10/2020 FINDINGS: The right-sided PICC catheter has been repositioned and now projects over the superior vena cava. The heart remains enlarged. There is aortic tortuosity/ectasia. There are postsurgical changes of a midline sternotomy. There is an enteric tube which passes into the stomach. There is radiograph ic evidence of congestive failure/fluid overload.[ IMPRESSION: 1. Interval repositioning the right-sided PICC catheter which now projects over the superior vena cav a near the atrial caval junction ACT 112: Negative or not required by law. Electronically signed by: Praneeth Yuen M.D. 08/10/2020 12:19 PM
[2020-08-10] MEDS ORDERED: TPN/PPN CONSULT PHARMACY PRN (14:27)
[2020-08-10] MEDS ORDERED: POTASSIUM CHLORIDE / WTR 10 MEQ/100 ML PLCT IV ONE (14:35)
--- NOTE | 2020-08-10 14:48 | Pharmacy Report ---
Pharmacy PN Initial Consult - Date of Service August 10, 2020 - Scope Pharmacy has been consulted to manage parenteral nutrition orders and order appropriate labs. As part of the Nutrition Support Team guidelines, pharmacy will work in conjunction with dietary when determining the patients caloric needs. - Subjective The patient is a 85 year old F admitted on 08/06/20 09:30 for SBO. Patient is to receive parenteral nutrition for SBO. Pertinent PMH: - Objective Height: 5 ft 1 in Weight: 86.3 kg Intake & Output (Last 24Hrs): Intake & Output 08/08/20 08/09/20 08/10/20 08/11/20 06:59 06:59 06:59 06:59 Intake Total 3337.000 / 3337.000 2061.666 / 2061.666 2213.333 / 2213.333 1035 / 1035 Output Total 1945 / 1945 780 / 780 1475 / 1475 1080 / 1080 Balance 1392.000 / 9362.008 6446.666 / 1281.666 738.333 / 738.333 -45 / -45 Weight 85.5 kg 89.1 kg 86.3 kg 86.3 kg Laboratory Data (Last 24 Hrs):: 08/10/20 08:34 Sodium 138 Potassium 3.5 Chloride 107 Carbon Dioxide 25 BUN 27 H Creatinine 1.54 H D Glucose 173 H Calcium 8.2 L Phosphorus 1.3 L* D Magnesium 2.0 Total Bilirubin 0.6 AST 10 L ALT 8 L Alkaline Phosphatase 61 Triglycerides 143 Recent Pertinent Medications:: Patient received 24 mmol Kphos this morning for baseline phos level of 1.3. Nutrition Assessment:: Please refer to the Notes section of the EMR for the most recent examiner rating clerk note. - Assessment Patient with low baseline phos, at risk for possible refeeding. I will initiate dextrose slowly and add phos to the TPN bag. Electrolytes should still be monitored closely throughout initiation of TPN. Of note however, patient was receiving dextrose containing fluids since yesterday morning. - Plan For day 1 of PN administration, the following will be ordered: Macronutrients Amino acids 85 grams/day Dextrose 100 grams/day Lipids 50 grams/day Micronutrients Sodium phosphate 12 MMol Sodium chloride 60 mEq Potassium phosphate 18 mMol Potassium chloride 10 mEq Multivitamins 10 mL Trace Elements 10 mL Additional additives: thiamine 100mg Total volume 1500 mL to be infused over 24 hrs will provide 1180 kcal/day Final osmolarity 1015.65 mOsm/L (maximum for PPN is 900 mOsm/L) Labs to be ordered per PN order protocol Pharmacy will follow and adjust parenteral nutrition orders on a daily basis. Thank you.
--- NOTE | 2020-08-10 15:26 | Pharmacy Report ---
Pharmacy Glycemic Short Note 2 - Date of Service August 10, 2020 - Glycemic Short BSG Results (Last 24 hours): 08/09/20 08/09/20 08/09/20 17:47 21:08 23:54 Glucose POC Glucose 153 H 171 H 186 H 08/10/20 08/10/20 08/10/20 06:41 08:34 11:50 Glucose 173 H POC Glucose 162 H 191 H OUTPATIENT ANTIDIABETIC REGIMEN: * Tresiba (insulin degludec) 18 units SQ HS * NovoLog with meals * 5-10 units with Breakfast * 7-15 units with Lunch and dinner * TDD ~ 68 units max * A1c = 7.1% on 07/20/20 ASSESSMENT: 08/08 * Patient required a total of 12 units of insulin yesterday, 9 of which were basal. * Patient initiated on TPN today, receiving 100g of dextrose to start. Of not patient was initiated on dextrose containing fluids yesterday morning and fasting BSG did trend up. Will adjust evening Lantus scale. * Novolog CF tightened. 08/07 * Patient is now POD #0 s/p exploratory laparotomy * Patient remains NPO * BSGs well controlled with only 9 units of basal insulin yesterday/no bolus * Will maintain current regimen today * Continues on diltiazem gtt at 5 mL/hr (containing dextrose) 08/06 * 85yo T2DM female with excellent outpatient control per recent A1c * Pt is maintained on SQ basal bolus regimen as an outpatient. Outpatient regimen is weighted towards prandial insulin. Basal insulin dose should be OK to continue despite NPO but to be safe, typically 50-80% of basal insulin dose is given when NPO. Will set a scale this evening for basal insulin dose based on BSG; if BSG < 160 will give 505 and if BSG >160 will give ~80% . Pt NPO for SBO * Outpatient basal insulin is Tresiba (insulin degludec). This is non-formulary- will convert to Lantus which is a 1:1 conversion. * Will use a weight based CF/CR and titrate based on BSG trends. PLAN FOR INPATIENT GLYCEMIC CONTROL: * Basal insulin * Lantus 0,12, or 15 units SQ HS- SEE MAR for details * Bolus insulin * NovoLog per scale ACHS or Q6hrs while NPO * Goal Range: Low 110 mg/dL - High 140 mg/dL * Correction Factor: 25 mg/dL/unit * Nutritional / Prandial insulin per carb ratio of 1 unit per 9 grams CHO consumed PLAN FOR DISCHARGE: * A1c is in goal range for patient based on age/co-morbidities. No changes needed to outpatient regimen unless patient is experiencing frequent hypoglycemia.
[2020-08-10] MEDS ORDERED: TPN IV SCH (16:00)
[2020-08-10] MEDS ORDERED: Custom Central Pn 1,500 ML in TPN BAG 0 ML IV SCH (16:00)
[2020-08-10] MEDS ORDERED: CENTRAL PN IV SCH (16:00)
[2020-08-10] MEDS: INSULIN GLARGINE SOLOSTAR 100 UNITS/ML 3 ML PEN SC SCH (22:46)
[2020-08-11] MEDS: METOPROLOL TARTRATE 1 MG/ML VIAL IV SCH ×4 (00:52→17:31)
[2020-08-11] MEDS: INSULIN ASPART 100 UNITS/ML 3 ML PEN SC SCH ×5 (01:10→20:59)
[2020-08-11] MEDS: FAMOTIDINE 20 MG in SYRINGE 3 ML IV SCH (08:44)
[2020-08-11] MEDS: HEPARIN SOD 5,000 UNIT/0.5 ML VIAL SQ SCH ×2 (08:44→21:09)
[2020-08-11 09:19] LABS: Hematocrit (blood only) 39.6 % (37-47); Hemoglobin 13.2 g/dL (12.0-16.0); Mean Corpuscular Hemoglobin 29.9 pg (25-34); Mean Corpuscular Hgb Conc 33.3 g/dL (32-36); Mean Corpuscular Volume 89.8 fL (80-100); Mean Platelet Volume 9.8 fL (7.4-10.4); Platelet Count 294 K/uL (130-400); RDW Coefficient of Variation 15.4 % (11.5-14.5); RDW Standard Deviation 51.1 fL (36.4-46.3); Red Blood Count 4.41 M/uL (4.2-5.4); White Blood Count 7.08 K/uL (4.8-10.8)
[2020-08-11 09:39] LABS: BUN Creatinine Ratio 20.3 (10-20); Calcium 8.5 mg/dl (8.5-10.1); Creatinine Clr Calc Pharmacy 31.2 ml/min; Est GFR (African American) 43.9 ml/min; Est GFR (Non-African American) 37.9 ml/min; Magnesium 1.8 mg/dl (1.8-2.4); Phosphorus 1.8 mg/dl (2.5-4.9); Potassium 3.9 mmol/L (3.5-5.1)
[2020-08-11] MEDS ORDERED: POTASSIUM PHOS 3 MMOL/1 ML INFUSION IV STA (10:12)
[2020-08-11] MEDS: METOPROLOL TARTRATE 1 MG/ML VIAL IV PRN (10:27)
[2020-08-11] MEDS ORDERED: POTASSIUM PHOSPHATE 15 MMOL in SODIUM CHLORIDE 0.9% 250 ML IV SCH (10:45)
--- NOTE | 2020-08-11 10:48 | Surgery Progress Note ---
Date of Service August 11, 2020 Assessment & Plan (1) SBO (small bowel obstruction): POD 4 ex lap, partial small bowel resection continue NG, TPN await return of bowel function Cr improving Admission and Anticipated Discharge Date Admission Date: August 06, 2020 Subjective c/o NG tube, abdominal pain controlled, no ostomy output Physical Exam Gastrointestinal (Abdomen): Inspection/Auscultation: + abdomen distended (slightly), + abdominal surgical incision (dressing intact) and + abdominal surgical drain present (20 cc overnight) Percussion/Palpation: abdomen soft NG 200 cc overnight Results & Data ([facility]) Vital Signs (Past 12 Hours) Vital Signs Temp Pulse Pulse Resp BP BP Pulse Ox 08/11/20 10:27 145 H 08/11/20 07:09 36.7 C 130 H 19 138/96 92 08/11/20 06:17 133 H 141/114 H 08/11/20 04:05 37.1 C 121 H 22 135/102 H 95 08/11/20 00:52 135 H 167/111 H 08/11/20 00:26 36.6 C 136 H 38 H 167/111 H 95 PG Care Time/CCT Total # of Minutes Spent Total Time Spent with Patient: Total time spent is greater than 50% in coordination of care (as documented) at patient's floor/unit and/or counseling patient: Coding Level of Care Code None Diagnoses SBO (small bowel obstruction) K56.609
--- NOTE | 2020-08-11 12:14 | Hospitalist Progress Note ---
Date of Service August 11, 2020 Assessment & Plan (1) Small bowel obstruction: Present on admission with abdominal pain associated with vomiting -CT abd/pelvis showed interval development of a small bowel obstruction with a focal transition point within the deep pelvis as described above. Postoperative changes consistent with resection of the distal colon and rectum with a descending colostomy. Surgery on board S/P ex lap and small bowel anastomosis, w/ Dr. Onofre (08/07) GI consulted for hx of GI bleed and NGT placement/management Continue keeping NPO Avoid narcotics and use IV tylenol prn. pt seems to get confused w/ narcotics PICC line placed and pt was started on TPN Continue IV abx for now Hypophosphatemia -Replace and monitor (2) Parastomal hernia: - Chronic, Noted on CT (3) Rectal adenocarcinoma: - Rectal bleeding in Nov 2014 prompted colonoscopy, biopsy and ultimately diagnosis of colon cancer. 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 - Followed previously with [facility] and got xeloda and XRT. (4) CAD (coronary artery disease): - hx of bypass in 2003 (5) Atrial fibrillation: Paroxysmal, Recurred in 2017. Afib with RVR with HR btw 130 to 145 Currently on IV metoprolol scheduled and prn PO metoprolol on hold since pt is NPO Eiquis on hold due to GI bleed, switched by to subq heparin for now, monitor for bleed Will discuss with cardiology (6) Hydronephrosis: -Reviewed on CT, appears to be chronic, moderate, right-sided, if worsening I's/O's or creatinine/BUN would consider nephrology/urology consultati on - Follows with urology as outpt, next appt in August (7) Diabetes mellitus, type 2: -Reduce Tresiba to 9 units daily since n.p.o., ISS with [facility] consulted -Last A1c =7.1 on 07/20/20 (8) Hypothyroidism: Convert levothyroxine IV 25 mcg daily (9) CKD (chronic kidney disease): Cr. 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 - Due to NPO, will hold Eliquis and cont. anticoagulation with heparin subq for hx of such, and CKD. DVT ppx: - teds, scds CODE: Full Code Dispo: From home. PCU. Admission and Anticipated Discharge Date Admission Date: August 06, 2020 Subjective Pt was seen and examined for follow up of small bowel obstruction Lying in bed with no acute distress Tele monitor showed afib with RVR Pt denies any chest pain and palpitation Review of Systems Review of Systems: All systems reviewed & are unremarkable except as noted in Subjective Physical Exam Physical Exam: General- No acute distress Head- atraumatic Eyes- PERRL, EOMI, ENT- oropharynx clear Neck- supple, no JVD Lungs- clear to auscultation Heart- irregular rhythm; +tachycardia Abdomen- Hypoactive bowel sound, nontender, +colostomy bag Extremities- no calf tenderness Neuro- alert, oriented x 3; PERRL, EOMI; no facial palsy; no dysarthria Skin- warm & dry Results & Data Results & Data ([facility]) Vital Signs (Past 12 Hours) Vital Signs Temp Pulse Pulse Resp BP BP Pulse Ox 08/11/20 11:24 135 H 08/11/20 10:54 36.8 C 126 H 20 134/100 94 08/11/20 10:27 145 H 08/11/20 07:09 36.7 C 130 H 19 138/96 92 08/11/20 06:17 133 H 141/114 H 08/11/20 04:05 37.1 C 121 H 22 135/102 H 95 08/11/20 00:52 135 H 167/111 H 08/11/20 00:26 36.6 C 136 H 38 H 167/111 H 95 (1) Parastomal hernia Obstruction and gangrene presence: without obstruction or gangrene Qualified Code(s): K43.5 - Parastomal hernia without obstruction or gangrene
[2020-08-11] MEDS ORDERED: STAT IV Infusion **Titration per Protocol STA (13:46)
[2020-08-11] MEDS ORDERED: dilTIAZem HCl 5 MG/ML 5 ML VIAL IV STA (13:46)
[2020-08-11] MEDS: dilTIAZem HCL 125 MG in DEXTROSE 5% 100 ML IV SCH (14:07)
[2020-08-11] MEDS ORDERED: Custom Central Pn 1,500 ML in TPN BAG 0 ML IV SCH (16:00)
[2020-08-11] MEDS: INSULIN GLARGINE SOLOSTAR 100 UNITS/ML 3 ML PEN SC SCH (21:08)
[2020-08-12] MEDS: INSULIN ASPART 100 UNITS/ML 3 ML PEN SC SCH ×7 (00:19→21:12)
[2020-08-12] MEDS: dilTIAZem HCL 125 MG in DEXTROSE 5% 100 ML IV SCH ×3 (02:35→20:35)
[2020-08-12] MEDS: METOPROLOL TARTRATE 1 MG/ML VIAL IV PRN ×2 (03:46→08:27)
[2020-08-12] MEDS: HYDROmorphone INJ 0.5 MG/0.5 ML SYR IV PRN (05:03)
--- NOTE | 2020-08-12 07:08 | Surgery Progress Note ---
Date of Service August 12, 2020 Assessment & Plan (1) S/P laparotomy: s/p small bowel anastomosis on Tpn renal fn much improved Awaiting return of GI function-we will need to continue NG tube Patient with A. fib with rapid ventricular response and also some respiratory difficulty Requiring O2 via mask I did discuss all these things with her brother Scott and even told him that at some point she may Require a ventilator. I believe cardiology is evaluating the patient Admission and Anticipated Discharge Date Admission Date: August 06, 2020 Results & Data ([facility]) Vital Signs (Past 12 Hours) Vital Signs Temp Pulse Pulse Resp BP Pulse Ox 08/12/20 03:54 37.1 C 136 H 16 124/81 93 08/12/20 03:46 132 H 08/12/20 00:18 37.1 C 120 H 24 120/81 97 08/11/20 19:56 36.9 C 110 H 24 129/105 H 96 PG Care Time/CCT Total # of Minutes Spent Total Time Spent with Patient: Total time spent is greater than 50% in coordination of care (as documented) at patient's floor/unit and/or counseling patient: Coding Level of Care Code None Diagnoses S/P laparotomy Z98.890
[2020-08-12 07:23] LABS: BUN Creatinine Ratio 21.3 (10-20); Calcium 8.5 mg/dl (8.5-10.1); Creatinine Clr Calc Pharmacy 27.8 ml/min; Est GFR (African American) 38.1 ml/min; Est GFR (Non-African American) 32.8 ml/min; Magnesium 1.7 mg/dl (1.8-2.4); Potassium 3.9 mmol/L (3.5-5.1)
[2020-08-12 07:44] LABS: Phosphorus 2.6 mg/dl (2.5-4.9)
[2020-08-12] MEDS: FAMOTIDINE 20 MG in SYRINGE 3 ML IV SCH (08:27)
[2020-08-12] MEDS: HEPARIN SOD 5,000 UNIT/0.5 ML VIAL SQ SCH ×2 (08:27→21:13)
--- NOTE | 2020-08-12 09:31 | XRay Report ---
XR chest 1V portable CLINICAL HISTORY: Pulmonary edema. COMPARISON STUDY: Chest radiograph August 10, 2020. FINDINGS: Right PICC is in place. Tip of nasogastric tube is below lower aspect of this image but at least within the proximal stomach. Patient is rotated. Cardiomegaly is unchanged. Pulmonary edema per sists. There are small bilateral pleural effusions. Basilar opacities, greater on the right, persist. IMPRESSION: 1. No significant change in pulmonary edema. Small bilateral pleural effusions. 2. Persistent bibasilar opacities, greater on the right. This may reflect pneumonia or atelectasis. R adiographic follow-up is recommended. ACT 112: Negative or not required by law. Electronically signed by: Robin Harkins M.D. 08/12/2020 9:29 AM
[2020-08-12] MEDS ORDERED: MAGNESIUM SULFATE / D5W 1 GM/100 ML BAG IV ONE ×2 (09:45→21:54)
[2020-08-12] MEDS ORDERED: FUROSEMIDE 20 MG in SYRINGE 0 ML IV ONE (10:00)
--- NOTE | 2020-08-12 12:01 | Cardiology Progress Note ---
Date of Service August 12, 2020 Assessment & Plan (1) Atrial fibrillation: (2) CAD (coronary artery disease): (3) Rectal adenocarcinoma: (4) Supratherapeutic INR: (5) Weakness: (6) Acute kidney injury superimposed on chronic kidney disease: (7) Small bowel obstruction: (8) Embolism and thrombosis of arteries of lower extremity: (9) Diabetes mellitus, type 2: Still unable to tolerate p.o. Was receiving IV Lopressor, however, started to have episodes of hypotension and Cardizem drip restarted. At this point, obviously remains difficult to maintain medications while not taking p.o. We will start IV digoxin 0.125 mg today and Lopressor 2.5 mg IV every 6 hours. My hope would be to wean off the drip this for regime Titrate Cardizem drip to off as feasible Admission and Anticipated Discharge Date Admission Date: August 06, 2020 Subjective Patient seen and examined, chart reviewed. Asked by primary team to reevaluate the patient today due to ongoing rapid ventricular response while not taking orals. Patient denies any cardiac complaints. She denies any chest pain, shortness of breath, palpitations, lightheadedness, dizziness or syncope. Telemetry reviewed: Atrial fibrillation with rapid ventricular response in the rates from the 100s to 120s Review of Systems Review of Systems: All systems reviewed & are unremarkable except as noted in HPI & below Physical Exam Physical Exam: General: Somnolent and confused. No acute distress HEENT: Normocephalic, atraumatic. Pupils equal, round and reactive to light and accommodation. Extraocular muscles are intact. Anicteric sclera. Moist mucous membranes. Neck: No JVD. No bruit. Cardiovascular: irregularly irregular, unable to appreciate murmur, rub or gallop. Pulmonary: Clear to auscultation bilaterally. No rales, rhonchi, or wheezing. Abdomen: Bowel sounds x 4, soft. No rebound, guarding or tenderness. No organomegaly. Extremities: No clubbing, cyanosis or edema. +2 pedal pulses bilaterally. Skin: Warm and dry. Results & Data ([facility]) Vital Signs (Past 12 Hours) Vital Signs Temp Pulse Pulse Resp BP BP Pulse Ox 08/12/20 11:40 36.5 C 94 H 18 135/73 135/73 97 08/12/20 08:27 120 H 08/12/20 08:09 36.5 C 109 H 22 105/81 91 08/12/20 03:54 37.1 C 136 H 16 124/81 93 08/12/20 03:46 132 H 08/12/20 00:18 37.1 C 120 H 24 120/81 97
[2020-08-12] MEDS: METOPROLOL TARTRATE 1 MG/ML VIAL IV SCH ×2 (13:13→17:16)
--- NOTE | 2020-08-12 13:14 | Palliative Care Consultation ---
Date of Consultation August 12, 2020 Assessment & Plan (1) Palliative care encounter: This is an 85 year old Female who presented to the [facility] with nausea and vomiting. She was diagnosed with a small bowel obstruction and underwent an ex-lap s/p small bowel anastomosis. Additional PMH includes:CAD s/p CABG x3 in 2004, Atrial fibrillation on Eloquis, DM2, CKD stage III, history of rectal CA in 2014 s/p colectomy with end colostomy in 2015, history of embolism and thrombosis of arteries of lower extremity in 2017 s/p left lower extremity embolectomy/patch and angioplasty, HTN, history of breast cancer, and a smoker. palliative Medicine was consulted to discuss goals of care. I was able to talk with the patient who stated that she was 'done with everything'. she said she was unsure how much more she wanted to do. I was able to call her brother Scott at [phone] who stated that they lives together and she has no other living family. She has had two adult children who have and her is . He stated that she would not want additional heroic measures taken and would not want CPR, cardiac shocking, or intubation and mechanical ventilation. She is on TPN and he is hopeful she will be able to start eating over the next few days, but was clear that she would not want any life prolonging or permanent feeding tubes placed. This is consistent with what she told me as well. The goal is to try long-term for some gentle rehabilitation and see how she progresses. Scott indicated that should she do poorly, he would prefer a transition to a more hospice focused approach in her care. (2) S/P laparotomy: (3) Weakness: (4) SBO (small bowel obstruction): History of Present Illness Reason for Consultation: goals of care Requesting Physician: Dr. Cannon Attending Physician: Isaias Marsh MD History of Present Illness This is an 85 year old Female who presented to the [facility] with nausea and vomiting. She was diagnosed with a small bowel obstruction and underwent an ex-lap s/p small bowel anastomosis. Additional PMH includes:CAD s/p CABG x3 in 2004, Atrial fibrillation on Eloquis, DM2, CKD stage III, history of rectal CA in 2014 s/p colectomy with end colostomy in 2015, history of embolism and thrombosis of arteries of lower extremity in 2017 s/p left lower extremity embolectomy/patch and angioplasty, HTN, history of breast cancer, and a smoker. palliative Medicine was consulted to discuss goals of care. Please see A/P for further details. Thanks for involving palliative medicine with this patient. Allergies Allergy/AdvReac Type Severity Reaction Status Date / Time iodine Allergy Intermediate Itching Verified 07/19/20 16:22 lisinopril Allergy Unknown Unknown Verified 07/19/20 16:22 ondansetron Allergy Unknown Unknown Verified 07/19/20 16:22 Sulfa (Sulfonamide Allergy Unknown Itching Verified 07/19/20 16:22 Antibiotics) Home Medications Medication Instructions Recorded Confirmed Type timolol maleate 1 drp OPB QAM 11/23/18 08/06/20 History metoprolol tartrate 25 mg tablet 75 mg PO BID tab 11/19/19 08/06/20 History denosumab 60 mg/mL subcutaneous 60 mg SQ .[id number] #1 ml 03/31/20 08/06/20 Rx syringe levothyroxine 50 mcg tablet 50 mcg PO QAM 90 Days #90 tab 03/31/20 08/06/20 Rx calcitriol 0.25 mcg capsule 0.25 mcg PO DAILY #90 cap 06/08/20 08/06/20 Rx chlorthalidone 25 mg tablet 12.5 mg PO DAILY #45 tab 06/08/20 08/06/20 Rx Tresiba U-100 Insulin 100 unit/mL 18 unit SQ HS #10 ml NS 06/15/20 08/06/20 Rx subcutaneous solution insulin aspart U-100 100 unit/mL See Rx Instructions SUBCUT 06/15/20 08/06/20 Rx subcutaneous solution .COMPLEX #20 ml apixaban 2.5 mg PO BID 07/19/20 08/06/20 History pantoprazole 40 mg PO BID 30 Days #60 tab 07/22/20 08/06/20 Rx nitroglycerin 0.4 mg SUBLINGUAL UD 08/06/20 08/06/20 History rosuvastatin 10 mg PO HS 08/06/20 08/06/20 History Patient History Medical History (Updated 08/12/20 @ 17:26 by FELISHA Mariscal) Atrial fibrillation paroxysmal CAD (coronary artery disease) s/p CABG x3 (2003) Diabetes mellitus, type 2 Embolism and thrombosis of arteries of lower extremity 2017/LLE embolectomy/patch angioplasty History of breast cancer History of upper gastrointestinal bleeding duodenal ulcer (2013) Hydronephrosis Hypercalcemia Hyperparathyroidism Hypertensive urgency Hypothyroidism Kidney stones Mitral stenosis borderline to mild per 11/2018 ECHO Osteoporosis Palliative care encounter Partial bowel obstruction 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 (2015), s/p chemo/current colostomy bag (lifelong) Small bowel obstruction resolved with NGT/no surgical intervention needed Vitamin D deficiency Surgical History H/O colostomy History of embolectomy LLE embolectomy/patch angioplasty (2016) Hx of cataract surgery right and left Hx of cystoscopy Hx of tonsillectomy Status post cardiac catheterization 2016 Status post colostomy Status post coronary artery bypass grafting 2003 Status post partial colectomy Status post partial mastectomy left lumpectomy Family History Other Diabetes Heart disease Social History Smoking Status: Former smoker Years Smoked: 49; Second Hand Exposure: No; Hx Alcohol Use: No Hx Substance Use: No Preferred Language: Albanian 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 Ability: Effective 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 Beliefs That Will Affect Care: None marital status: / Current Living Situation: Family Current Living Situation Comment: With brother per report; pt refusing assessment Feels Safe at Home: Declines to Answer Assistive Devices: Oxygen - Continuous Review of Systems Review of Systems: [place] System Assessment Scale: Pain: 1/3 Tiredness: 1/1 Lack of Appetite: 1/3 Anxiety: 0/3 Shortness of breath: 1/3 Palliative Performance Scale: 30% Physical Exam Constitutional: + frail appearing and cooperative; no acute distress ENMT: Nose: + dry nasal mucous membranes Respiratory: no labored breathing Auscultation: + diminished lung sounds and + rhonchi Cardiovascular: Rate/Rhythm: regular rate and regular rhythm Heart Sounds: normal S1 and normal S2 Extremities: normal capillary refill Gastrointestinal (Abdomen): Inspection/Auscultation: + abdominal surgical incision and + abdominal surgical drain present Percussion/Palpation: + abdomen tender LLQ colostomy RLQ CAM drain Skin: + ecchymosis and + pallor Psychiatric: Orientation: alert, oriented to person and cooperative; + not oriented to place and + not oriented to time Insight: + limited insight Judgement: + limited judgement Results & Data ([facility]) Vital Signs (Past 12 Hours) Vital Signs Temp Pulse Pulse Resp BP BP Pulse Ox 08/12/20 11:40 36.5 C 94 H 18 135/73 135/73 97 08/12/20 08:27 120 H 08/12/20 08:09 36.5 C 109 H 22 105/81 91 08/12/20 03:54 37.1 C 136 H 16 124/81 93 08/12/20 03:46 132 H PG Care Time/CCT Total # of Minutes Spent Total Time Spent with Patient: Total time spent is greater than 50% in coordination of care (as documented) at patient's floor/unit and/or counseling patient: 70 minutes with > 50% of that time spent assessing the patient, discussing goals of care and collaborating with IDT Coding Level of Care Code 52040 Initial Inpt Care Lvl 3 Diagnoses Palliative care encounter Z51.5 S/P laparotomy Z98.890 Weakness R53.1 SBO (small bowel obstruction) K56.609 Time Spent (min) 70
--- NOTE | 2020-08-12 13:31 | Pharmacy Report ---
Pharmacy Glycemic Short Note 2 - Date of Service August 12, 2020 - Glycemic Short BSG Results (Last 24 hours): 08/11/20 08/11/20 08/12/20 16:07 20:35 00:12 Glucose POC Glucose 210 H 147 H 167 H 08/12/20 08/12/20 08/12/20 04:02 06:03 06:21 Glucose 174 H POC Glucose 144 H 177 H 08/12/20 13:12 Glucose POC Glucose 198 H OUTPATIENT ANTIDIABETIC REGIMEN: * Tresiba (insulin degludec) 18 units SQ HS * NovoLog with meals * 5-10 units with Breakfast * 7-15 units with Lunch and dinner * TDD ~ 68 units max * A1c = 7.1% on 07/20/20 ASSESSMENT: 08/12: * Patient overall better controlled today. Yesterday she received 15 units of sq basal and 14 units sq bolus. I did add 10 units of regular insulin to the TPN starting yesterday afternoon to cover 100g dextrose. This was increased to 15 units for this afternoon's bag as the dextrose content was increased to 150g. * Will plan on increasing Lantus scale this evening. NovoLog CF was tightened at lunchtime and changed to q4 yesterday. 08/10 * Patient required a total of 12 units of insulin yesterday, 9 of which were basal. * Patient initiated on TPN today, receiving 100g of dextrose to start. Of not patient was initiated on dextrose containing fluids yesterday morning and fasting BSG did trend up. Will adjust evening Lantus scale. * Novolog CF tightened. 08/07 * Patient is now POD #0 s/p exploratory laparotomy * Patient remains NPO * BSGs well controlled with only 9 units of basal insulin yesterday/no bolus * Will maintain current regimen today * Continues on diltiazem gtt at 5 mL/hr (containing dextrose) 08/06 * 85yo T2DM female with excellent outpatient control per recent A1c * Pt is maintained on SQ basal bolus regimen as an outpatient. Outpatient regimen is weighted towards prandial insulin. Basal insulin dose should be OK to continue despite NPO but to be safe, typically 50-80% of basal insulin dose is given when NPO. Will set a scale this evening for basal insulin dose based on BSG; if BSG < 160 will give 505 and if BSG >160 will give ~80% . Pt NPO for SBO * Outpatient basal insulin is Tresiba (insulin degludec). This is non-formulary- will convert to Lantus which is a 1:1 conversion. * Will use a weight based CF/CR and titrate based on BSG trends. PLAN FOR INPATIENT GLYCEMIC CONTROL: * Basal insulin * Lantus 0,12, 15, or 18 units SQ HS- SEE MAR for details * Bolus insulin * NovoLog per scale q4h * Goal Range: Low 110 mg/dL - High 140 mg/dL * Correction Factor: 20 mg/dL/unit * 15 units regular insulin added to TPN PLAN FOR DISCHARGE: * A1c is in goal range for patient based on age/co-morbidities. No changes needed to outpatient regimen unless patient is experiencing frequent hypoglycemia.
[2020-08-12] MEDS ORDERED: Custom Central Pn 1,500 ML in TPN BAG 0 ML IV SCH (16:00)
[2020-08-12] MEDS: DIGOXIN 125 MCG in SYRINGE 9.5 ML IV SCH (16:06)
--- NOTE | 2020-08-12 20:02 | Hospitalist Progress Note ---
Date of Service August 12, 2020 Assessment & Plan (1) Small bowel obstruction: Present on admission with abdominal pain associated with vomiting -CT abd/pelvis showed interval development of a small bowel obstruction with a focal transition point within the deep pelvis as described above. Postoperative changes consistent with resection of the distal colon and rectum with a descending colostomy. Surgery on board S/P ex lap and small bowel anastomosis, w/ Dr. Onofre (08/07) GI consulted for hx of GI bleed and NGT placement/management PICC line placed and pt was started on TPN Case discussed with surgery DrSavanna Case that recommended to continue keeping NPO with no PO meds Avoid narcotics and use IV tylenol prn. pt seems to get confused w/ narcotics Continue TPN Continue IV abx for now Electrolytes imbalance Mg replaced Continue monitor electrolytes (2) Parastomal hernia: Chronic, Noted on CT (3) Rectal adenocarcinoma: - Rectal bleeding in Nov 2014 prompted colonoscopy, biopsy and ultimately diagnosis of colon cancer. 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 - [facility] and [facility]. (4) Acute respiratory failure with hypoxia: CXR showed no significant change in pulmonary edema. Small bilateral pleu ral effusions. Persistent bibasilar opacities, greater on the right. has not been able to get PO Chlorthalidone since pt is NPO Lasix 20mg IV x1 given Will give additional Lasix Continue Oxygen supplement (5) CAD (coronary artery disease): - hx of bypass in 2003 (6) Atrial fibrillation: Paroxysmal, Recurred in 2017. Afib with RVR with HR btw 130 to 145 Currently on IV metoprolol scheduled and prn PO metoprolol on hold since pt is NPO IV cardizem drip was started yesterday Eiquis on hold due to GI bleed, switched by to subq heparin for now, monitor for bleed case discussed with cardiology (7) Hydronephrosis: -Reviewed on CT, appears to be chronic, moderate, right-sided, if worsening I's/O's or creatinine/BUN would consider nephrology/urology consultation - Follows with urology as outpt, next appt in August (8) Diabetes mellitus, type 2: -Reduce Tresiba to 9 units daily since n.p.o., ISS with Accu-Cheks, glycemic pharmacy consulted -Last A1c =7.1 on 07/20/20 (9) Hypothyroidism: Convert levothyroxine IV 25 mcg daily (10) CKD (chronic kidney disease): Cr. 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 - Due to NPO, will hold Eliquis and cont. anticoagulation with heparin subq for hx of such, and CKD. DVT ppx: - teds, scds CODE: Full Code Dispo: From home. PCU. Admission and Anticipated Discharge Date Admission Date: August 06, 2020 Subjective Pt was seen and examined for follow up of afib with RVR Pt said that last night she was having hard time to breath She said that she felt like she was congested last night Lasix given and she said that her breathing slightly improves Denies any chest pain, palpitation and fever Review of Systems Review of Systems: All systems reviewed & are unremarkable except as noted in Subjective Physical Exam Physical Exam: General- No acute distress Head- atraumatic Eyes- PERRL, EOMI, ENT- oropharynx clear Neck- supple, no JVD Lungs- +coarse BS Heart- irregular rhythm; +tachycardia Abdomen- Hypoactive bowel sound, nontender, +colostomy bag Extremities- no calf tenderness Neuro- alert, oriented x 3; PERRL, EOMI; no facial palsy; no dysarthria Skin- warm & dry Results & Data Results & Data ([facility]) Vital Signs (Past 12 Hours) Vital Signs Temp Pulse Pulse Resp BP BP Pulse Ox 08/12/20 15:48 36.8 C 103 H 20 127/96 99 08/12/20 13:13 101 H 08/12/20 11:40 36.5 C 94 H 18 135/73 135/73 97 08/12/20 08:27 120 H 08/12/20 08:09 36.5 C 109 H 22 105/81 91 (1) Parastomal hernia Obstruction and gangrene presence: without obstruction or gangrene Qualified Code(s): K43.5 - Parastomal hernia without obstruction or gangrene
[2020-08-12] MEDS: INSULIN GLARGINE SOLOSTAR 100 UNITS/ML 3 ML PEN SC SCH (21:13)
[2020-08-12] MEDS ORDERED: PIPERACILL/TAZOBAC CONSULT ACTIVE PRN (21:50)
[2020-08-12] MEDS ORDERED: SODIUM CHLORIDE 0.9% NEBU SOLN 3 ML NEB STA (21:51)
--- NOTE | 2020-08-12 21:55 | 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 Note ---
Date of Service: August 12, 2020 Notified by RN of copious oral secretions, subsequent mucous plug obtained on deep suctioning. Patient noted to be tachypneic. Chest x-ray as per my interpretation bilateral infiltrates greater on the right AP HAP, possible aspiration given emesis symptoms, hx SBO Aspiration precautions Zosyn in place of current cefoxitin for additional pulmonary anaerobic coverage Will relay to AM provider.
[2020-08-12] MEDS ORDERED: PIPERACILLIN/TAZOBACTAM 4.5 GM in DEXTROSE 5% 100 ML IV ONE (22:00)
[2020-08-12] MEDS ORDERED: methylPREDNISolone 20 MG in SYRINGE 0 ML IV ONE (22:00)
[2020-08-12] MEDS ORDERED: METOPROLOL TARTRATE 1 MG/ML VIAL IV STA (22:26)
[2020-08-12] MEDS ORDERED: POTASSIUM CHLORIDE / WTR 10 MEQ/100 ML PLCT IV ONE (22:27)
[2020-08-12] MEDS ORDERED: NSS + 20MEQ KCL 20 MEQ/1,000 ML BAG IV ONE (23:00)
[2020-08-13] MEDS ORDERED: FUROSEMIDE 20 MG in SYRINGE 0 ML IV ONE ×2 (00:15→11:45)
[2020-08-13] MEDS: INSULIN ASPART 100 UNITS/ML 3 ML PEN SC SCH ×7 (00:44→23:36)
[2020-08-13] MEDS: METOPROLOL TARTRATE 1 MG/ML VIAL IV SCH ×5 (00:49→23:39)
[2020-08-13] MEDS: dilTIAZem HCL 125 MG in DEXTROSE 5% 100 ML IV SCH ×3 (03:11→19:59)
[2020-08-13] MEDS: PIPERACILLIN/TAZOBACTAM 4.5 GM in DEXTROSE 5% 100 ML IV SCH ×3 (04:31→20:14)
[2020-08-13] MEDS ORDERED: MINERAL OIL 30 ML UDC PO ONE (07:47)
--- NOTE | 2020-08-13 07:49 | XRay Report ---
XR chest 1V portable CLINICAL HISTORY: tachypnea COMPARISON STUDY: Chest radiograph August 12, 2020 at 8:28 AM. FINDINGS: Tip of nasogastric tube is below the lower aspect of this image. A right PICC is in place. There are median sternotomy wires and a prosthetic cardiac valve. Cardiomegaly is noted. Interstitial thickening persists. Small right and trace left pleural effusions are noted. Bilateral airspace opac ities persist. IMPRESSION: 1. Interstitial thickening consistent with pulmonary edema. 2. Bilateral airspace opacities which may reflect superimposed pneumonia or alveolar edema. 3. Small right and trace left pleural effusions. ACT 112: Negative or not required by law. Electronically signed by: Robin Harkins M.D. 08/13/2020 7:48 AM
[2020-08-13] MEDS: FAMOTIDINE 20 MG in SYRINGE 3 ML IV SCH (08:13)
[2020-08-13] MEDS: HEPARIN SOD 5,000 UNIT/0.5 ML VIAL SQ SCH ×2 (08:14→20:15)
[2020-08-13] MEDS: LEVOTHYROXINE SODIUM 25 MCG in SYRINGE 0 ML IV SCH (08:56)
--- NOTE | 2020-08-13 09:30 | Surgery Progress Note ---
Date of Service August 13, 2020 Assessment & Plan (1) S/P laparotomy: Left patient's patient still confused but breathing is much better Patient is currently on room air She is less tachycardic on IV meds her NG tube is in place and has minimal output from her colostomy Will need to continue with her NG tube in place and also continue her TPN. I did discuss her status with her brother Scott Dr. Figueroa is covering over the weekend Admission and Anticipated Discharge Date Admission Date: August 06, 2020 Results & Data ([facility]) Vital Signs (Past 12 Hours) Vital Signs Temp Pulse Pulse Resp BP BP Pulse Ox 08/13/20 07:24 37.1 C 102 H 18 126/106 H 96 08/13/20 06:42 113 H 08/13/20 03:56 36.8 C 101 H 20 117/74 94 08/13/20 00:49 92 H 179/92 H 08/12/20 23:45 36.9 C 104 H 20 179/92 H 96 08/12/20 23:11 118 H 18 95 PG Care Time/CCT Total # of Minutes Spent Total Time Spent with Patient: Total time spent is greater than 50% in coordination of care (as documented) at patient's floor/unit and/or counseling patient: Coding Level of Care Code None Diagnoses S/P laparotomy Z98.890
--- NOTE | 2020-08-13 09:53 | 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 Note ---
Date of Service: August 13, 2020 Lab needs to draw blood test to check for electrolytes and creatinine since pt is on TPN. Unable to draw lab in the right UE. Pt said that she had a lump rem terrell in her left breast years ago. Ok to use the dorsal left hand to draw today lab.
[2020-08-13 10:06] LABS: Hematocrit (blood only) 40.3 % (37-47); Hemoglobin 13.5 g/dL (12.0-16.0); Mean Corpuscular Hemoglobin 30.1 pg (25-34); Mean Corpuscular Hgb Conc 33.5 g/dL (32-36); Mean Platelet Volume 9.7 fL (7.4-10.4); Platelet Count 395 K/uL (130-400); RDW Coefficient of Variation 15.1 % (11.5-14.5); RDW Standard Deviation 50.2 fL (36.4-46.3); Red Blood Count 4.48 M/uL (4.2-5.4); White Blood Count 7.82 K/uL (4.8-10.8)
[2020-08-13 10:24] LABS: BUN Creatinine Ratio 25.3 (10-20); Calcium 8.6 mg/dl (8.5-10.1); Creatinine Clr Calc Pharmacy 29.5 ml/min; Est GFR (African American) 41.2 ml/min; Est GFR (Non-African American) 35.5 ml/min; Magnesium 2.4 mg/dl (1.8-2.4); Phosphorus 2.8 mg/dl (2.5-4.9); Potassium 4.2 mmol/L (3.5-5.1)
[2020-08-13] MEDS ORDERED: DIGOXIN 500 MCG/2 ML AMP IV ONE (12:42)
--- NOTE | 2020-08-13 12:46 | Cardiology Progress Note ---
Date of Service August 13, 2020 Assessment & Plan (1) Atrial fibrillation: (2) CAD (coronary artery disease): (3) Rectal adenocarcinoma: (4) Supratherapeutic INR: (5) Weakness: (6) Acute kidney injury superimposed on chronic kidney disease: (7) Small bowel obstruction: (8) Embolism and thrombosis of arteries of lower extremity: (9) Diabetes mellitus, type 2: The patient still has atrial fibrillation with at times high heart rates. She was given a dose of digoxin yesterday and I am going to give her an extra dose today. Otherwise she is stable. Admission and Anticipated Discharge Date Admission Date: August 06, 2020 Subjective The patient is confused and unable to provide history Review of Systems Review of Systems: Unobtainable due to cognitive status Physical Exam Physical Exam: General: no acute distress and stated age Head: normocephalic, no masses, lesions, tenderness or abnormalities Eyes: conjunctiva are pink and non-injected, sclera clear Neck: supple, no adenopathy, no bruits, normal jugular venous pulse, no hepatojugular reflux Chest: normal shape and normal respiratory effort Lungs: clear to auscultation and percussion Cardiac Exam: - irregular rate & rhythm, no murmurs gallops or rubs - normal S1, normal S2 Pulses: 2(+) throughout Abdomen: abdomen soft, non-tender, no abnormal masses and no hepatosplenomegaly Musculoskeletal: no gait disturbance, no joint inflammation, no deforming arthritis Extremities: no edema and no cyanosis Neuro: grossly normal exam Results & Data ([facility]) Vital Signs (Past 12 Hours) Vital Signs Temp Pulse Pulse Resp BP BP Pulse Ox 08/13/20 11:46 110 H 08/13/20 11:27 37.1 C 100 H 19 101/63 96 08/13/20 07:24 37.1 C 102 H 18 126/106 H 96 08/13/20 06:42 113 H 08/13/20 03:56 36.8 C 101 H 20 117/74 94 08/13/20 00:49 92 H 179/92 H Laboratory Results Laboratory Results - last 24 hr 08/12/20 08/12/20 08/12/20 13:12 16:13 20:38 WBC RBC Hgb Hct MCV MCH MCHC RDW Std Deviation RDW Coeff of Kei Plt Count MPV Sodium Potassium Chloride Carbon Dioxide Anion Gap BUN Creatinine Est Cr Clr Drug Dosing Est GFR ( Amer) Est GFR (Non-Af Amer) BUN/Creatinine Ratio Glucose POC Glucose 198 H 170 H 181 H Calcium Phosphorus Magnesium 08/13/20 08/13/20 08/13/20 00:06 04:38 07:30 WBC RBC Hgb Hct MCV MCH MCHC RDW Std Deviation RDW Coeff of Kei Plt Count MPV Sodium Potassium Chloride Carbon Dioxide Anion Gap BUN Creatinine Est Cr Clr Drug Dosing Est GFR ( Amer) Est GFR (Non-Af Amer) BUN/Creatinine Ratio Glucose POC Glucose 159 H 205 H 208 H Calcium Phosphorus Magnesium 08/13/20 08/13/20 08/13/20 09:50 09:50 11:26 WBC 7.82 RBC 4.48 Hgb 13.5 Hct 40.3 MCV 90.0 MCH 30.1 MCHC 33.5 RDW Std Deviation 50.2 H RDW Coeff of Kei 15.1 H Plt Count 395 MPV 9.7 Sodium 138 Potassium 4.2 Chloride 104 Carbon Dioxide 29 Anion Gap 5.0 BUN 34 H Creatinine 1.34 H Est Cr Clr Drug Dosing 29.5 Est GFR ( Amer) 41.2 Est GFR (Non-Af Amer) 35.5 BUN/Creatinine Ratio 25.3 H Glucose 195 H POC Glucose 220 H Calcium 8.6 Phosphorus 2.8 Magnesium 2.4 Medications Administered Current Inpatient Medications Dextrose (Dextrose 50% 50 Ml Syringe) 25 - 50 ml IV UD PRN; Protocol PRN Reason: Hypoglycemia Protocol Stop: 09/05/20 13:55 Digoxin (Digoxin 500 Mcg/2 Ml Amp) 250 mcg IV ONE ONE Stop: 08/13/20 12:43 Glucagon (Glucagon For Inj 1 Mg Vial) 1 mg SQ UD PRN; Protocol PRN Reason: Hypoglycemia Protocol Stop: 09/05/20 13:55 Glucose (Glucose 10 Tabs/Tube) 4 - 8 tabs PO UD PRN; Protocol PRN Reason: Hypoglycemia Protocol Stop: 09/05/20 13:55 Heparin Sodium (Beef Lung) (Heparin 10 Unit/Ml 5 Ml Flush) 5 ml FLUSH PRN PRN PRN Reason: Flush Stop: 09/09/20 12:50 Heparin Sodium (Porcine) (Heparin Sod 5,000 Unit/0.5 Ml Vial) 5,000 units SQ Q12 [facility] Stop: 09/05/20 20:59 Last Admin: 08/13/20 08:14 Dose: 5,000 units Documented by: Hydromorphone HCl (Hydromorphone Inj 0.5 Mg/0.5 Ml Syr) 0.5 mg IV Q3HWA PRN PRN Reason: Pain 1-5 Stop: 08/21/20 14:33 Last Admin: 08/12/20 05:03 Dose: 0.5 mg Documented by: Levothyroxine Sodium 25 mcg/ (Syringe) 1.25 mls @ 2 mls/min IV Q72H [facility]; Protocol Stop: 09/06/20 08:59 Last Admin: 08/13/20 08:56 Dose: 2 mls/min Documented by: Famotidine 20 mg/ Syringe 5 mls @ 2.5 mls/min IV DAILY [facility] Stop: 09/06/20 08:59 Last Admin: 08/13/20 08:13 Dose: 2.5 mls/min Documented by: Promethazine HCl 12.5 mg/ (Sodium Chloride) 50.5 mls @ 202 mls/hr IV Q6H PRN PRN Reason: Nausea And Vomiting Stop: 09/05/20 19:44 Last Infusion: 08/07/20 06:56 Dose: Infused Documented by: Dextrose (D10w) 1,000 mls @ 0 mls/hr IV .Q0M PRN PRN Reason: protocol (see label comments) Stop: 09/09/20 08:02 Diltiazem HCl 125 mg/ Dextrose 125 mls @ 15 mls/hr IV .Q8H20M [facility]; Protocol Stop: 09/10/20 13:59 Last Admin: 08/13/20 11:37 Dose: 15 mg/hr, 15 mls/hr Documented by: Nutrition (Parenteral) 1,500 (ml/ TPN BAG) 1,500 mls @ 62.5 mls/hr IV .Q24H [facility]; Protocol Stop: 08/13/20 15:59 Last Admin: 08/12/20 16:06 Dose: 62.5 mls/hr Documented by: Digoxin 125 mcg/ Syringe 10 mls @ 2 mls/min IV DAILY@1600 [facility] Stop: 09/11/20 15:59 Last Admin: 08/12/20 16:06 Dose: 2 mls/min Documented by: Piperacillin Sod/Tazobactam (Sod 4.5 gm/ Dextrose) 120 mls @ 30 mls/hr IV Q8H [facility]; Protocol Stop: 08/20/20 03:59 Last Admin: 08/13/20 11:48 Dose: 30 mls/hr Documented by: Nutrition (Parenteral) 1,500 (ml/ TPN BAG) 1,500 mls @ 62.5 mls/hr IV .Q24H [facility]; Protocol Stop: 08/14/20 15:59 Insulin Aspart (Insulin Aspart 100 Units/Ml 3 Ml Pen) 0 units SC Q4 [facility] Stop: 09/10/20 11:59 Last Admin: 08/13/20 11:41 Dose: 5 units Documented by: Insulin Glargine (Insulin Glargine Solostar 100 Units/Ml 3 Ml Pen) 0 units SC HS [facility]; Protocol Stop: 09/08/20 20:59 Last Admin: 08/12/20 21:13 Dose: 18 units Documented by: Metoprolol Tartrate (Metoprolol Tartrate 1 Mg/Ml Vial) 2.5 mg IV Q4 PRN PRN Reason: HR >115 Stop: 09/09/20 15:59 Last Admin: 08/12/20 08:27 Dose: 2.5 mg Documented by: Metoprolol Tartrate (Metoprolol Tartrate 1 Mg/Ml Vial) 2.5 mg IV Q6 [facility] Stop: 09/11/20 11:59 Last Admin: 08/13/20 11:46 Dose: 2.5 mg Documented by: Miscellaneous Information (Pharmacy Glycemic Mgmt Consult) 1 ea N/A UD PRN; Protocol PRN Reason: Consult Stop: 09/05/20 14:20 Miscellaneous Information (Tpn/Ppn Consult Pharmacy) 1 ea N/A UD PRN PRN Reason: Consult Stop: 09/09/20 14:26 Miscellaneous Information (Piperacill/Tazobac Consult Active) 1 ea N/A UD PRN PRN Reason: Consult Stop: 09/11/20 21:49 Ondansetron HCl (Ondansetron Inj 2 Mg/Ml 2 Ml Vial) 4 mg IV [id number] PRN PRN Reason: Nausea Stop: 09/06/20 14:33
[2020-08-13] MEDS ORDERED: DIGOXIN 250 MCG in SYRINGE 9 ML IV STA (12:47)
--- NOTE | 2020-08-13 13:32 | Pharmacy Report ---
Pharmacy Glycemic Short Note 2 - Date of Service August 13, 2020 - Glycemic Short BSG Results (Last 24 hours): 08/12/20 08/12/20 08/13/20 16:13 20:38 00:06 Glucose POC Glucose 170 H 181 H 159 H 08/13/20 08/13/20 08/13/20 04:38 07:30 09:50 Glucose 195 H POC Glucose 205 H 208 H 08/13/20 11:26 Glucose POC Glucose 220 H OUTPATIENT ANTIDIABETIC REGIMEN: * Tresiba (insulin degludec) 18 units SQ HS * NovoLog with meals * 5-10 units with Breakfast * 7-15 units with Lunch and dinner * TDD ~ 68 units max * A1c = 7.1% on 07/20/20 ASSESSMENT: 08/13: * BSGs have been elevated since this AM, dextrose in TPN was increased to 150 gm yesterday, will keep the same today but increase insulin in TPN to 25 units. Will also tighten correction factor to 15. Continue q4H checks. If BSGs remain elevated will need to keep dextrose in tpn the same or decrease until better control obtained. 08/12: * Patient overall better controlled today. Yesterday she received 15 units of sq basal and 14 units sq bolus. I did add 10 units of regular insulin to the TPN starting yesterday afternoon to cover 100g dextrose. This was increased to 15 units for this afternoon's bag as the dextrose content was increased to 150g. * Will plan on increasing Lantus scale this evening. NovoLog CF was tightened at lunchtime and changed to q4 yesterday. 08/10 * Patient required a total of 12 units of insulin yesterday, 9 of which were basal. * Patient initiated on TPN today, receiving 100g of dextrose to start. Of not patient was initiated on dextrose containing fluids yesterday morning and fasting BSG did trend up. Will adjust evening Lantus scale. * Novolog CF tightened. 08/07 * Patient is now POD #0 s/p exploratory laparotomy * Patient remains NPO * BSGs well controlled with only 9 units of basal insulin yesterday/no bolus * Will maintain current regimen today * Continues on diltiazem gtt at 5 mL/hr (containing dextrose) 08/06 * 85yo T2DM female with excellent outpatient control per recent A1c * Pt is maintained on SQ basal bolus regimen as an outpatient. Outpatient regimen is weighted towards prandial insulin. Basal insulin dose should be OK to continue despite NPO but to be safe, typically 50-80% of basal insulin dose is given when NPO. Will set a scale this evening for basal insulin dose based on BSG; if BSG < 160 will give 505 and if BSG >160 will give ~80% . Pt NPO for SBO * Outpatient basal insulin is Tresiba (insulin degludec). This is non-formulary- will convert to Lantus which is a 1:1 conversion. * Will use a weight based CF/CR and titrate based on BSG trends. PLAN FOR INPATIENT GLYCEMIC CONTROL: * Basal insulin * Lantus 0,12, 16, or 20 units SQ HS- SEE MAR for details * Bolus insulin * NovoLog per scale q4h * Goal Range: Low 110 mg/dL - High 140 mg/dL * Correction Factor: 15 mg/dL/unit * 25 units regular insulin added to TPN PLAN FOR DISCHARGE: * A1c is in goal range for patient based on age/co-morbidities. No changes needed to outpatient regimen unless patient is experiencing frequent hypoglycemia.
[2020-08-13] MEDS: HYDROmorphone INJ 0.5 MG/0.5 ML SYR IV PRN (14:21)
[2020-08-13] MEDS ORDERED: Custom Central Pn 1,500 ML in TPN BAG 0 ML IV SCH (16:00)
[2020-08-13] MEDS: DIGOXIN 125 MCG in SYRINGE 9.5 ML IV SCH (17:17)
--- NOTE | 2020-08-13 19:13 | Hospitalist Progress Note ---
Date of Service August 13, 2020 Assessment & Plan (1) Small bowel obstruction: Present on admission with abdominal pain associated with vomiting -CT abd/pelvis showed interval development of a small bowel obstruction with a focal transition point within the deep pelvis as described above. Postoperative changes consistent with resection of the distal colon and rectum with a descending colostomy. Surgery on board S/P ex lap and small bowel anastomosis, w/ Dr. Onofre (08/07) GI consulted for hx of GI bleed and NGT placement/management PICC line placed and pt was started on TPN Case discussed with surgery DrSavanna Case that recommended to continue keeping NPO with no PO meds Avoid narcotics and use IV tylenol prn. pt seems to get confused w/ narcotics Pt pulled out NGT, we will check with surgery if NGT need to insert back Continue TPN Continue IV abx for now Electrolytes imbalance Electrolytes stable Continue monitor electrolytes (2) Confusion: Seems to be related to steroid in the setting of prolong hospital stays Pt removed her NG tube Moving all extremities Might consider to place a one to one sitter Will hold on any additional steroid Continue monitor closely (3) Parastomal hernia: Chronic, Noted on CT (4) Rectal adenocarcinoma: - Rectal bleeding in Nov 2014 prompted colonoscopy, biopsy and ultimately diagnosis of colon cancer. 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 - Followed previously with [facility] and got xeloda and XRT. (5) Acute respiratory failure with hypoxia: Possible aspiration pneumonia CXR showed showed Interstitial thickening consistent with pulmonary edema. Bilateral airspace opacities which may reflect superimposed pneumonia or alveolar edema. has not been able to get PO Chlorthalidone since pt is NPO Lasix x1 given this morning Saturation well on RA Clinically improved (6) CAD (coronary artery disease): - hx of bypass in 2003 (7) Atrial fibrillation: Paroxysmal, Recurred in 2017. Afib with RVR with HR btw 130 to 145 Currently on IV metoprolol scheduled and prn PO metoprolol on hold since pt is NPO Continue IV cardizem drip Eiquis on hold due to GI bleed during the hospital course case discussed with cardiology Digoxin IV added to control the HR HR improves (8) Hydronephrosis: -Reviewed on CT, appears to be chronic, moderate, right-sided, if worsening I's/O's or creatinine/BUN would consider nephrology/urology consultation - Follows with urology as outpt, next appt in August (9) Diabetes mellitus, type 2: -Reduce Tresiba to 9 units daily since n.p.o., ISS with Accu-Cheks, glycemic pharmacy consulted -Last A1c =7.1 on 07/20/20 (10) Hypothyroidism: Convert levothyroxine IV 25 mcg daily (11) CKD (chronic kidney disease): Cr. 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 - Due to NPO, will hold Eliquis and cont. anticoagulation with heparin subq for hx of such, and CKD. DVT ppx: - teds, scds CODE: Full Code Dispo: Continue monitor in PCU Admission and Anticipated Discharge Date Admission Date: August 06, 2020 Subjective Pt was seen and examined for follow up of afib with RVR and SOB Lying in bed with no distress Pt said that her breathing improves On and off confused today Pt pulled out NG tube this afternoon She saturated well on RA HR slightly improved Spoke to brother today and provided with updates Denies any chest pain, palpitation and fever Review of Systems Review of Systems: All systems reviewed & are unremarkable except as noted in Subjective Physical Exam Physical Exam: General- No acute distress Head- atraumatic Eyes- PERRL, EOMI, ENT- oropharynx clear Neck- supple, no JVD Lungs- +coarse BS Heart- irregular rhythm; +tachycardia Abdomen- Hypoactive bowel sound, nontender, +colostomy bag Extremities- no calf tenderness Neuro- alert, oriented x 3; PERRL, EOMI; no facial palsy; no dysarthria Skin- warm & dry Results & Data Results & Data ([facility]) Vital Signs (Past 12 Hours) Vital Signs Temp Pulse Pulse Resp BP Pulse Ox 08/13/20 19:07 36.5 C 96 H 18 125/79 94 08/13/20 17:17 93 H 08/13/20 15:18 36.7 C 108 H 18 109/78 93 08/13/20 13:06 100 H 08/13/20 11:46 110 H 08/13/20 11:27 37.1 C 100 H 19 101/63 96 08/13/20 07:24 37.1 C 102 H 18 126/106 H 96 (1) Parastomal hernia Obstruction and gangrene presence: without obstruction or gangrene Qualified Code(s): K43.5 - Parastomal hernia without obstruction or gangrene
[2020-08-13] MEDS: INSULIN GLARGINE SOLOSTAR 100 UNITS/ML 3 ML PEN SC SCH (20:15)
[2020-08-14] MEDS: INSULIN ASPART 100 UNITS/ML 3 ML PEN SC SCH ×5 (03:55→20:05)
[2020-08-14] MEDS: PIPERACILLIN/TAZOBACTAM 4.5 GM in DEXTROSE 5% 100 ML IV SCH ×3 (03:55→20:05)
[2020-08-14] MEDS: dilTIAZem HCL 125 MG in DEXTROSE 5% 100 ML IV SCH ×3 (04:23→05:49)
[2020-08-14] MEDS: METOPROLOL TARTRATE 1 MG/ML VIAL IV SCH ×3 (05:35→17:24)
[2020-08-14 07:41] LABS: Calcium 8.5 mg/dl (8.5-10.1); Creatinine Clr Calc Pharmacy 29.5 ml/min; Est GFR (African American) 41.2 ml/min; Est GFR (Non-African American) 35.5 ml/min; Phosphorus 3.1 mg/dl (2.5-4.9); Potassium 3.8 mmol/L (3.5-5.1)
[2020-08-14] MEDS: HEPARIN SOD 5,000 UNIT/0.5 ML VIAL SQ SCH ×2 (08:55→20:05)
[2020-08-14] MEDS: FAMOTIDINE 20 MG in SYRINGE 3 ML IV SCH (09:00)
--- NOTE | 2020-08-14 09:10 | Pharmacy Report ---
Pharmacy Glycemic Short Note 2 - Date of Service August 14, 2020 - Glycemic Short BSG Results (Last 24 hours): 08/13/20 08/13/20 08/13/20 09:50 11:26 16:19 Glucose 195 H POC Glucose 220 H 236 H 08/13/20 08/13/20 08/14/20 19:53 23:32 03:48 Glucose POC Glucose 151 H 148 H 164 H 08/14/20 08/14/20 06:00 07:57 Glucose 135 H POC Glucose 160 H OUTPATIENT ANTIDIABETIC REGIMEN: * Tresiba (insulin degludec) 18 units SQ HS * NovoLog with meals * 5-10 units with Breakfast * 7-15 units with Lunch and dinner * TDD ~ 68 units max * A1c = 7.1% on 07/20/20 ASSESSMENT: 08/14: * Patient received 20 units basal last night, 25 units in TPN (150grams CHO), and 22 units of correctional insulin * Blood sugars better controlled since new TPN bag hung at 1600 - 135-164mg/dl * Will increase Dextrose to goal 200grams in TPN, and increase insulin in TPN to 45 units, continue basal and correctional insulin as ordered 08/13: * BSGs have been elevated since this AM, dextrose in TPN was increased to 150 gm yesterday, will keep the same today but increase insulin in TPN to 25 units. Will also tighten correction factor to 15. Continue q4H checks. If BSGs remain elevated will need to keep dextrose in tpn the same or decrease until better control obtained. 08/12: * Patient overall better controlled today. Yesterday she received 15 units of sq basal and 14 units sq bolus. I did add 10 units of regular insulin to the TPN starting yesterday afternoon to cover 100g dextrose. This was increased to 15 units for this afternoon's bag as the dextrose content was increased to 150g. * Will plan on increasing Lantus scale this evening. NovoLog CF was tightened at lunchtime and changed to q4 yesterday. 08/10 * Patient required a total of 12 units of insulin yesterday, 9 of which were basal. * Patient initiated on TPN today, receiving 100g of dextrose to start. Of not patient was initiated on dextrose containing fluids yesterday morning and fasting BSG did trend up. Will adjust evening Lantus scale. * Novolog CF tightened. 08/07 * Patient is now POD #0 s/p exploratory laparotomy * Patient remains NPO * BSGs well controlled with only 9 units of basal insulin yesterday/no bolus * Will maintain current regimen today * Continues on diltiazem gtt at 5 mL/hr (containing dextrose) 08/06 * 85yo T2DM female with excellent outpatient control per recent A1c * Pt is maintained on SQ basal bolus regimen as an outpatient. Outpatient regimen is weighted towards prandial insulin. Basal insulin dose should be OK to continue despite NPO but to be safe, typically 50-80% of basal insulin dose is given when NPO. Will set a scale this evening for basal insulin dose based on BSG; if BSG < 160 will give 505 and if BSG >160 will give ~80% . Pt NPO for SBO * Outpatient basal insulin is Tresiba (insulin degludec). This is non-formulary- will convert to Lantus which is a 1:1 conversion. * Will use a weight based CF/CR and titrate based on BSG trends. PLAN FOR INPATIENT GLYCEMIC CONTROL: * Basal insulin * Lantus 0,12, 16, or 20 units SQ HS- SEE MAR for details * Bolus insulin * NovoLog per scale q4h * Goal Range: Low 110 mg/dL - High 140 mg/dL * Correction Factor: 15 mg/dL/unit * 45 units regular insulin added to TPN PLAN FOR DISCHARGE: * A1c is in goal range for patient based on age/co-morbidities. No changes needed to outpatient regimen unless patient is experiencing frequent hypoglycemia.
--- NOTE | 2020-08-14 09:22 | Cardiology Progress Note ---
Date of Service August 14, 2020 Assessment & Plan (1) Atrial fibrillation: (2) CAD (coronary artery disease): (3) Rectal adenocarcinoma: (4) Supratherapeutic INR: (5) Weakness: (6) Acute kidney injury superimposed on chronic kidney disease: (7) Small bowel obstruction: (8) Embolism and thrombosis of arteries of lower extremity: (9) Diabetes mellitus, type 2: The patient's heart rates have improved. She is still not taking anything by mouth and therefore I would continue with the IV diltiazem and digoxin. Admission and Anticipated Discharge Date Admission Date: August 06, 2020 Subjective EF patient is still confused and not taking anything by mouth. Review of Systems Review of Systems: Unobtainable due to cognitive status Physical Exam Physical Exam: General: no acute distress and stated age Head: normocephalic, no masses, lesions, tenderness or abnormalities Eyes: conjunctiva are pink and non-injected, sclera clear Neck: supple, no adenopathy, no bruits, normal jugular venous pulse, no hepatojugular reflux Chest: normal shape and normal respiratory effort Lungs: clear to auscultation and percussion Cardiac Exam: - irregular rate & rhythm, no murmurs gallops or rubs - normal S1, normal S2 Pulses: 2(+) throughout Abdomen: abdomen soft, non-tender, no abnormal masses and no hepatosplenomegaly Musculoskeletal: no gait disturbance, no joint inflammation, no deforming arthri tis Extremities: no edema and no cyanosis Neuro: grossly normal exam Results & Data ([facility]) Vital Signs (Past 12 Hours) Vital Signs Temp Pulse Resp BP BP Pulse Ox 08/14/20 07:01 36.4 C L 79 19 141/67 H 95 08/14/20 03:40 36.5 C 76 20 108/58 L 94 08/13/20 23:06 36.5 C 77 16 134/60 92 Laboratory Results Laboratory Results - last 24 hr 08/13/20 08/13/20 08/13/20 09:50 09:50 11:26 WBC 7.82 RBC 4.48 Hgb 13.5 Hct 40.3 MCV 90.0 MCH 30.1 MCHC 33.5 RDW Std Deviation 50.2 H RDW Coeff of Kei 15.1 H Plt Count 395 MPV 9.7 Sodium 138 Potassium 4.2 Chloride 104 Carbon Dioxide 29 Anion Gap 5.0 BUN 34 H Creatinine 1.34 H Est Cr Clr Drug Dosing 29.5 Est GFR ( Amer) 41.2 Est GFR (Non-Af Amer) 35.5 BUN/Creatinine Ratio 25.3 H Glucose 195 H POC Glucose 220 H Calcium 8.6 Phosphorus 2.8 Magnesium 2.4 08/13/20 08/13/20 08/13/20 16:19 19:53 23:32 WBC RBC Hgb Hct MCV MCH MCHC RDW Std Deviation RDW Coeff of Kei Plt Count MPV Sodium Potassium Chloride Carbon Dioxide Anion Gap BUN Creatinine Est Cr Clr Drug Dosing Est GFR ( Amer) Est GFR (Non-Af Amer) BUN/Creatinine Ratio Glucose POC Glucose 236 H 151 H 148 H Calcium Phosphorus Magnesium 08/14/20 08/14/20 08/14/20 03:48 05:56 06:00 WBC RBC Hgb Hct MCV MCH MCHC RDW Std Deviation RDW Coeff of Kei Plt Count MPV Sodium 141 Potassium 3.8 Chloride 105 Carbon Dioxide 30 Anion Gap 6.0 BUN 38 H Creatinine 1.34 H Est Cr Clr Drug Dosing 29.5 Est GFR ( Amer) 41.2 Est GFR (Non-Af Amer) 35.5 BUN/Creatinine Ratio 28.0 H Glucose 135 H POC Glucose 164 H Calcium 8.5 Phosphorus 3.1 Magnesium 1.9 08/14/20 07:57 WBC RBC Hgb Hct MCV MCH MCHC RDW Std Deviation RDW Coeff of Kei Plt Count MPV Sodium Potassium Chloride Carbon Dioxide Anion Gap BUN Creatinine Est Cr Clr Drug Dosing Est GFR ( Amer) Est GFR (Non-Af Amer) BUN/Creatinine Ratio Glucose POC Glucose 160 H Calcium Phosphorus Magnesium Medications Administered Current Inpatient Medications Dextrose (Dextrose 50% 50 Ml Syringe) 25 - 50 ml IV UD PRN; Protocol PRN Reason: Hypoglycemia Protocol Stop: 09/05/20 13:55 Glucagon (Glucagon For Inj 1 Mg Vial) 1 mg SQ UD PRN; Protocol PRN Reason: Hypoglycemia Protocol Stop: 09/05/20 13:55 Glucose (Glucose 10 Tabs/Tube) 4 - 8 tabs PO UD PRN; Protocol PRN Reason: Hypoglycemia Protocol Stop: 09/05/20 13:55 Heparin Sodium (Beef Lung) (Heparin 10 Unit/Ml 5 Ml Flush) 5 ml FLUSH PRN PRN PRN Reason: Flush Stop: 09/09/20 12:50 Heparin Sodium (Porcine) (Heparin Sod 5,000 Unit/0.5 Ml Vial) 5,000 units SQ Q12 [facility] Stop: 09/05/20 20:59 Last Admin: 08/14/20 08:55 Dose: 5,000 units Documented by: Hydromorphone HCl (Hydromorphone Inj 0.5 Mg/0.5 Ml Syr) 0.5 mg IV Q3HWA PRN PRN Reason: Pain 1-5 Stop: 08/21/20 14:33 Last Admin: 08/13/20 14:21 Dose: 0.5 mg Documented by: Levothyroxine Sodium 25 mcg/ (Syringe) 1.25 mls @ 2 mls/min IV Q72H [facility]; Protocol Stop: 09/06/20 08:59 Last Admin: 08/13/20 08:56 Dose: 2 mls/min Documented by: Famotidine 20 mg/ Syringe 5 mls @ 2.5 mls/min IV DAILY [facility] Stop: 09/06/20 08:59 Last Admin: 08/14/20 09:00 Dose: 2.5 mls/min Documented by: Promethazine HCl 12.5 mg/ (Sodium Chloride) 50.5 mls @ 202 mls/hr IV Q6H PRN PRN Reason: Nausea And Vomiting Stop: 09/05/20 19:44 Last Infusion: 08/07/20 06:56 Dose: Infused Documented by: Dextrose (D10w) 1,000 mls @ 0 mls/hr IV .Q0M PRN PRN Reason: protocol (see label comments) Stop: 09/09/20 08:02 Diltiazem HCl 125 mg/ Dextrose 125 mls @ 5 mls/hr IV .Q24H [facility]; Protocol Stop: 09/10/20 13:59 Last Admin: 08/14/20 05:49 Dose: 5 mg/hr, 5 mls/hr Documented by: Digoxin 125 mcg/ Syringe 10 mls @ 2 mls/min IV DAILY@1600 [facility] Stop: 09/11/20 15:59 Last Admin: 08/13/20 17:17 Dose: 2 mls/min Documented by: Piperacillin Sod/Tazobactam (Sod 4.5 gm/ Dextrose) 120 mls @ 30 mls/hr IV Q8H [facility]; Protocol Stop: 08/20/20 03:59 Last Admin: 08/14/20 03:55 Dose: 30 mls/hr Documented by: Nutrition (Parenteral) 1,500 (ml/ TPN BAG) 1,500 mls @ 62.5 mls/hr IV .Q24H [facility]; Protocol Stop: 08/14/20 15:59 Last Admin: 08/13/20 17:17 Dose: 62.5 mls/hr Documented by: Nutrition (Parenteral) 1,500 (ml/ TPN BAG) 1,500 mls @ 62.5 mls/hr IV .Q24H [facility]; Protocol Stop: 08/15/20 15:59 Insulin Aspart (Insulin Aspart 100 Units/Ml 3 Ml Pen) 0 units SC Q4 [facility] Stop: 09/10/20 11:59 Last Admin: 08/14/20 08:54 Dose: 2 units Documented by: Insulin Glargine (Insulin Glargine Solostar 100 Units/Ml 3 Ml Pen) 0 units SC HS [facility]; Protocol Stop: 09/08/20 20:59 Last Admin: 08/13/20 20:15 Dose: 20 units Documented by: Metoprolol Tartrate (Metoprolol Tartrate 1 Mg/Ml Vial) 2.5 mg IV Q4 PRN PRN Reason: HR >115 Stop: 09/09/20 15:59 Last Admin: 08/12/20 08:27 Dose: 2.5 mg Documented by: Metoprolol Tartrate (Metoprolol Tartrate 1 Mg/Ml Vial) 2.5 mg IV Q6 [facility] Stop: 09/11/20 11:59 Last Admin: 08/14/20 05:35 Dose: 2.5 mg Documented by: Miscellaneous Information (Pharmacy Glycemic Mgmt Consult) 1 ea N/A UD PRN; Protocol PRN Reason: Consult Stop: 09/05/20 14:20 Miscellaneous Information (Tpn/Ppn Consult Pharmacy) 1 ea N/A UD PRN PRN Reason: Consult Stop: 09/09/20 14:26 Miscellaneous Information (Piperacill/Tazobac Consult Active) 1 ea N/A UD PRN PRN Reason: Consult Stop: 09/11/20 21:49 Ondansetron HCl (Ondansetron Inj 2 Mg/Ml 2 Ml Vial) 4 mg IV 4XDQ4H PRN PRN Reason: Nausea Stop: 09/06/20 14:33
--- NOTE | 2020-08-14 13:27 | Surgery Progress Note ---
Date of Service August 14, 2020 Assessment & Plan (1) S/P laparotomy: POD#7 Laparotomy with enterolysis and small bowel [id number] anastomosis with small bowel bypass NGT self-d/c'd yesterday. Awaiting return of bowel function before considering diet advancement. Continues on TPN Continue IV abx Pt seen and examined with Dr. Figueroa Admission and Anticipated Discharge Date Admission Date: August 06, 2020 Subjective patient self-d/c'd NGT . cannot obtain obtain reliable subjective history from patient due to confusion at this time. Physical Exam Gastrointestinal (Abdomen): Inspection/Auscultation: + abdominal surgical incision (c/d/i) Percussion/Palpation: abdomen soft no output from ostomy Results & Data ([facility]) Vital Signs (Past 12 Hours) Vital Signs Temp Pulse Pulse Resp BP BP BP 08/14/20 13:11 75 125/72 08/14/20 11:28 36.8 C 82 17 125/72 08/14/20 07:01 36.4 C L 79 19 141/67 H 08/14/20 03:40 36.5 C 76 20 BP Pulse Ox 08/14/20 13:11 08/14/20 11:28 94 08/14/20 07:01 95 08/14/20 03:40 108/58 L 94 PG Care Time/CCT Total # of Minutes Spent Total Time Spent with Patient: Total time spent is greater than 50% in coordination of care (as documented) at patient's floor/unit and/or counseling patient: Coding Level of Care Code None Diagnoses S/P laparotomy Z98.890
[2020-08-14] MEDS ORDERED: Custom Central Pn 1,500 ML in TPN BAG 0 ML IV SCH (16:00)
[2020-08-14] MEDS: DIGOXIN 125 MCG in SYRINGE 9.5 ML IV SCH (17:11)
--- NOTE | 2020-08-14 17:33 | Hospitalist Progress Note ---
Date of Service August 14, 2020 Assessment & Plan (1) Small bowel obstruction: Present on admission with abdominal pain associated with vomiting CT abd/pelvis showed interval development of a small bowel obstruction with a focal transition point within the deep pelvis as described above. Postoperative changes consistent with resection of the distal colon and rectum with a descending colostomy. Surgery on board S/P ex lap and small bowel anastomosis, w/ Dr. Onofre (08/07) GI consulted for hx of GI bleed and NGT placement/management PICC line placed and pt was started on TPN Case discussed with surgery DrSavanna Case that recommended to continue keeping NPO with no PO meds Avoid narcotics and use IV tylenol prn. pt seems to get confused w/ narcotics Pt pulled out NGT yesterday Awaiting return of bowel function before considering diet advancement as per surgery Keep NPO for now Continue TPN and IV abx Electrolytes imbalance Electrolytes stable Continue monitor electrolytes (2) Confusion: Seems to be related to steroid in the setting of prolong hospital stays Pt removed her NG tube Moving all extremities No focal neuro deficit on exam Continue one to one sitter Continue monitor closely Clinically improves (3) Parastomal hernia: Chronic, Noted on CT (4) Rectal adenocarcinoma: - Rectal bleeding in Nov 2014 prompted colonoscopy, biopsy and ultimately diagnosis of colon cancer. 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 - [facility]. (5) Acute respiratory failure with hypoxia: Possible aspiration pneumonia CXR showed showed Interstitial thickening consistent with pulmonary edema. Bilateral airspace opacities which may reflect superimposed pneumonia or alveolar edema. has not been able to get PO Chlorthalidone since pt is NPO Lasix has been given intermittently Saturation well on RA Clinically improved (6) CAD (coronary artery disease): - hx of bypass in 2003 (7) Atrial fibrillation: Paroxysmal, Recurred in 2017. Currently on IV metoprolol scheduled and prn PO metoprolol on hold since pt is NPO Heart rate controlled btw 70 to 80 case discussed with cardiology Continue IV cardizem drip and IV digoxin as per cardiology Eliquis on hold due to GI bleed during the hospital course once able to take PO, will resume her PO metoprolol and add PO digoxin Continue monitor in tele (8) Hydronephrosis: -Reviewed on CT, appears to be chronic, moderate, right-sided, if worsening I's/O's or creatinine/BUN would consider nephrology/urology consultation - Follows with urology as outpt, next appt in August (9) Diabetes mellitus, type 2: -Reduce Tresiba to 9 units daily since n.p.o., ISS with Accu-Cheks, glycemic pharmacy consulted -Last A1c =7.1 on 07/20/20 (10) Hypothyroidism: Convert levothyroxine IV 25 mcg daily (11) CKD (chronic kidney disease): Cr. 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 - Due to NPO, will hold Eliquis and cont. anticoagulation with heparin subq for hx of such, and CKD. DVT ppx: - teds, scds CODE: Full Code Dispo: Continue monitor in PCU Admission and Anticipated Discharge Date Admission Date: August 06, 2020 Subjective Pt was seen and examined for follow up of afib with RVR and SOB Lying in bed with no distress with one to one sitter Pt is doing much better compare to yesterday Her mental status improves She was able to make more sense this morning Heart rate controlled on Cardizem drip and digoxin Denies any chest pain, palpitation and fever Review of Systems Review of Systems: All systems reviewed & are unremarkable except as noted in Subjective Physical Exam Physical Exam: General- No acute distress Head- atraumatic Eyes- PERRL, EOMI, ENT- oropharynx clear Neck- supple, no JVD Lungs- +coarse BS Heart- irregular rhythm Abdomen- Hypoactive bowel sound, nontender, +colostomy bag Extremities- no calf tenderness Neuro- alert, oriented x 3; PERRL, EOMI; no facial palsy; no dysarthria Skin- warm & dry Results & Data Results & Data ([facility]) Vital Signs (Past 12 Hours) Vital Signs Temp Pulse Pulse Resp BP BP BP 08/14/20 17:24 88 08/14/20 17:11 82 08/14/20 14:56 36.3 C L 73 17 131/66 08/14/20 14:00 62 08/14/20 13:11 75 125/72 08/14/20 11:28 36.8 C 82 17 125/72 08/14/20 08:00 66 08/14/20 07:01 36.4 C L 79 19 141/67 H Pulse Ox 08/14/20 17:24 08/14/20 17:11 08/14/20 14:56 93 08/14/20 14:00 08/14/20 13:11 08/14/20 11:28 94 08/14/20 08:00 08/14/20 07:01 95 (1) Parastomal hernia Obstruction and gangrene presence: without obstruction or gangrene Qualified Code(s): K43.5 - Parastomal hernia without obstruction or gangrene
[2020-08-14] MEDS: INSULIN GLARGINE SOLOSTAR 100 UNITS/ML 3 ML PEN SC SCH (20:06)
[2020-08-15] MEDS: INSULIN ASPART 100 UNITS/ML 3 ML PEN SC SCH ×6 (00:08→20:08)
[2020-08-15] MEDS: METOPROLOL TARTRATE 1 MG/ML VIAL IV SCH ×4 (00:09→17:35)
[2020-08-15] MEDS: dilTIAZem HCL 125 MG in DEXTROSE 5% 100 ML IV SCH ×5 (03:32→12:25)
[2020-08-15] MEDS: PIPERACILLIN/TAZOBACTAM 4.5 GM in DEXTROSE 5% 100 ML IV SCH ×3 (03:48→19:57)
[2020-08-15 07:02] LABS: BUN Creatinine Ratio 33.7 (10-20); Calcium 8.6 mg/dl (8.5-10.1); Creatinine Clr Calc Pharmacy 31.6 ml/min; Est GFR (African American) 45.7 ml/min; Est GFR (Non-African American) 39.4 ml/min; Magnesium 1.9 mg/dl (1.8-2.4); Phosphorus 3.4 mg/dl (2.5-4.9); Potassium 3.6 mmol/L (3.5-5.1)
[2020-08-15] MEDS: HEPARIN SOD 5,000 UNIT/0.5 ML VIAL SQ SCH ×2 (08:24→20:08)
[2020-08-15] MEDS: FAMOTIDINE 20 MG in SYRINGE 3 ML IV SCH (08:24)
--- NOTE | 2020-08-15 08:46 | Surgery Progress Note ---
Date of Service August 15, 2020 Assessment & Plan (1) S/P laparotomy: POD#8 Laparotomy with enterolysis and small bowel trab-sk-scnc anastomosis with small bowel bypass can start clears Pt seen and examined with Dr. Figueroa Admission and Anticipated Discharge Date Admission Date: August 06, 2020 Supervising Physician Co-Signing Physician Notes Patient has solid stool in colostomy bag Mentally much clearer this morning We will start clear liquid Subjective no c/o, 1:1 Physical Exam Gastrointestinal (Abdomen): Inspection/Auscultation: abdomen not distended Percussion/Palpation: abdomen soft some colostomy output Results & Data ([facility]) Vital Signs (Past 12 Hours) Vital Signs Temp Pulse Resp BP Pulse Ox 08/15/20 08:12 36.4 C L 71 14 129/67 96 08/15/20 02:50 36.6 C 69 19 124/55 L 97 08/14/20 22:55 36.4 C L 70 19 113/86 95 PG Care Time/CCT Total # of Minutes Spent Total Time Spent with Patient: Total time spent is greater than 50% in coordination of care (as documented) at patient's floor/unit and/or counseling patient: Coding Level of Care Code 12323 Subseq Hosp Care Lvl 3 Diagnoses S/P laparotomy Z98.890
[2020-08-15] MEDS ORDERED: Nursing to Pharmacy 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 SCH (11:00)
--- NOTE | 2020-08-15 11:06 | Cardiology Progress Note ---
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 She is starting clear liquids. Her heart rates are better controlled and I would leave her on the IV medications through today at least until she is on a stable diet. Admission and Anticipated Discharge Date Admission Date: August 06, 2020 Subjective The patient is more alert today and conversive. Review of Systems Review of Systems: All systems reviewed & are unremarkable except as noted in Subjective Physical Exam Physical Exam: General: no acute distress and stated age Head: normocephalic, no masses, lesions, tenderness or abnormalities Eyes: conjunctiva are pink and non-injected, sclera clear Neck: supple, no adenopathy, no bruits, normal jugular venous pulse, no hepatojugular reflux Chest: normal shape and normal respiratory effort Lungs: clear to auscultation and percussion Cardiac Exam: - irregular rate & rhythm, no murmurs gallops or rubs - normal S1, normal S2 Pulses: 2(+) throughout Abdomen: abdomen soft, non-tender, no abnormal masses and no hepatosplenomegaly Musculoskeletal: no gait disturbance, no joint inflammation, no deforming arthritis Extremities: no edema and no cyanosis Neuro: grossly normal exam Results & Data ([facility]) Vital Signs (Past 12 Hours) Vital Signs Temp Pulse Resp BP Pulse Ox 08/15/20 08:12 36.4 C L 71 14 129/67 96 08/15/20 02:50 36.6 C 69 19 124/55 L 97 Laboratory Results Laboratory Results - last 24 hr 08/14/20 08/14/20 08/14/20 11:59 15:59 20:01 Sodium Potassium Chloride Carbon Dioxide Anion Gap BUN Creatinine Est Cr Clr Drug Dosing Est GFR ( Amer) Est GFR (Non-Af Amer) BUN/Creatinine Ratio Glucose POC Glucose 159 H 155 H 177 H Calcium Phosphorus Magnesium 08/14/20 08/15/20 08/15/20 23:10 03:44 06:23 Sodium 140 Potassium 3.6 Chloride 108 H Carbon Dioxide 25 Anion Gap 8.0 BUN 42 H Creatinine 1.23 H Est Cr Clr Drug Dosing 31.6 Est GFR ( Amer) 45.7 Est GFR (Non-Af Amer) 39.4 BUN/Creatinine Ratio 33.7 H Glucose 94 POC Glucose 124 H 93 Calcium 8.6 Phosphorus 3.4 Magnesium 1.9 08/15/20 08:05 Sodium Potassium Chloride Carbon Dioxide Anion Gap BUN Creatinine Est Cr Clr Drug Dosing Est GFR ( Amer) Est GFR (Non-Af Amer) BUN/Creatinine Ratio Glucose POC Glucose 113 H Calcium Phosphorus Magnesium Medications Administered Current Inpatient Medications Dextrose (Dextrose 50% 50 Ml Syringe) 25 - 50 ml IV UD PRN; Protocol PRN Reason: Hypoglycemia Protocol Stop: 09/05/20 13:55 Glucagon (Glucagon For Inj 1 Mg Vial) 1 mg SQ UD PRN; Protocol PRN Reason: Hypoglycemia Protocol Stop: 09/05/20 13:55 Glucose (Glucose 10 Tabs/Tube) 4 - 8 tabs PO UD PRN; Protocol PRN Reason: Hypoglycemia Protocol Stop: 09/05/20 13:55 Heparin Sodium (Beef Lung) (Heparin 10 Unit/Ml 5 Ml Flush) 5 ml FLUSH PRN PRN PRN Reason: Flush Stop: 09/09/20 12:50 Heparin Sodium (Porcine) (Heparin Sod 5,000 Unit/0.5 Ml Vial) 5,000 units SQ Q12 [facility] Stop: 09/05/20 20:59 Last Admin: 08/15/20 08:24 Dose: 5,000 units Documented by: Hydromorphone HCl (Hydromorphone Inj 0.5 Mg/0.5 Ml Syr) 0.5 mg IV Q3HWA PRN PRN Reason: Pain 1-5 Stop: 08/21/20 14:33 Last Admin: 08/13/20 14:21 Dose: 0.5 mg Documented by: Levothyroxine Sodium 25 mcg/ (Syringe) 1.25 mls @ 2 mls/min IV Q72H [facility]; Protocol Stop: 09/06/20 08:59 Last Admin: 08/13/20 08:56 Dose: 2 mls/min Documented by: Famotidine 20 mg/ Syringe 5 mls @ 2.5 mls/min IV DAILY [facility] Stop: 09/06/20 08:59 Last Admin: 08/15/20 08:24 Dose: 2.5 mls/min Documented by: Promethazine HCl 12.5 mg/ (Sodium Chloride) 50.5 mls @ 202 mls/hr IV Q6H PRN PRN Reason: Nausea And Vomiting Stop: 09/05/20 19:44 Last Infusion: 08/07/20 06:56 Dose: Infused Documented by: Dextrose (D10w) 1,000 mls @ 0 mls/hr IV .Q0M PRN PRN Reason: protocol (see label comments) Stop: 09/09/20 08:02 Diltiazem HCl 125 mg/ Dextrose 125 mls @ 5 mls/hr IV .Q24H [facility]; Protocol Stop: 09/10/20 13:59 Last Admin: 08/15/20 08:19 Dose: Not Given Documented by: Digoxin 125 mcg/ Syringe 10 mls @ 2 mls/min IV DAILY@1600 [facility] Stop: 09/11/20 15:59 Last Admin: 08/14/20 17:11 Dose: 2 mls/min Documented by: Piperacillin Sod/Tazobactam (Sod 4.5 gm/ Dextrose) 120 mls @ 30 mls/hr IV Q8H [facility]; Protocol Stop: 08/20/20 03:59 Last Infusion: 08/15/20 08:16 Dose: Infused Documented by: Nutrition (Parenteral) 1,500 (ml/ TPN BAG) 1,500 mls @ 62.5 mls/hr IV .Q24H [facility]; Protocol Stop: 08/15/20 15:59 Last Admin: 08/14/20 17:10 Dose: 62.5 mls/hr Documented by: Insulin Aspart (Insulin Aspart 100 Units/Ml 3 Ml Pen) 0 units SC ACHS [facility]; Protocol Stop: 09/14/20 11:29 Insulin Glargine (Insulin Glargine Solostar 100 Units/Ml 3 Ml Pen) 0 units SC [facility]; Protocol Stop: 09/08/20 20:59 Last Admin: 08/14/20 20:06 Dose: 20 units Documented by: Metoprolol Tartrate (Metoprolol Tartrate 1 Mg/Ml Vial) 2.5 mg IV Q4 PRN PRN Reason: HR >115 Stop: 09/09/20 15:59 Last Admin: 08/12/20 08:27 Dose: 2.5 mg Documented by: Metoprolol Tartrate (Metoprolol Tartrate 1 Mg/Ml Vial) 2.5 mg IV Q6 [facility] Stop: 09/11/20 11:59 Last Admin: 08/15/20 05:59 Dose: 2.5 mg Documented by: Miscellaneous Information (Pharmacy Glycemic Mgmt Consult) 1 ea N/A UD PRN; Protocol PRN Reason: Consult Stop: 09/05/20 14:20 Miscellaneous Information (Tpn/Ppn Consult Pharmacy) 1 ea N/A UD PRN PRN Reason: Consult Stop: 09/09/20 14:26 Miscellaneous Information (Piperacill/Tazobac Consult Active) 1 ea N/A UD PRN PRN Reason: Consult Stop: 09/11/20 21:49 Ondansetron HCl (Ondansetron Inj 2 Mg/Ml 2 Ml Vial) 4 mg IV 4XDQ4H PRN PRN Reason: Nausea Stop: 09/06/20 14:33
--- NOTE | 2020-08-15 11:08 | Pharmacy Report ---
Pharmacy Glycemic Short Note 2 - Date of Service August 15, 2020 - Glycemic Short BSG Results (Last 24 hours): 08/14/20 08/14/20 08/14/20 11:59 15:59 20:01 Glucose POC Glucose 159 H 155 H 177 H 08/14/20 08/15/20 08/15/20 23:10 03:44 06:23 Glucose 94 POC Glucose 124 H 93 08/15/20 08:05 Glucose POC Glucose 113 H OUTPATIENT ANTIDIABETIC REGIMEN: * Tresiba (insulin degludec) 18 units SQ HS * NovoLog with meals * 5-10 units with Breakfast * 7-15 units with Lunch and dinner * TDD ~ 68 units max * A1c = 7.1% on 07/20/20 ASSESSMENT: 08/15: * Blood sugars well controlled, starting clears today, reducing macronutrients in TPN in half per Dr Marsh * TPN to have 100grams CHO starting at 1600- reduce insulin to 20 units * Add carb ratio for CHO consumed by PO 08/14: * Patient received 20 units basal last night, 25 units in TPN (150grams CHO), and 22 units of correctional insulin * Blood sugars better controlled since new TPN bag hung at 1600 - 135-164mg/dl * Will increase Dextrose to goal 200grams in TPN, and increase insulin in TPN to 45 units, continue basal and correctional insulin as ordered 08/13: * BSGs have been elevated since this AM, dextrose in TPN was increased to 150 gm yesterday, will keep the same today but increase insulin in TPN to 25 units. Will also tighten correction factor to 15. Continue q4H checks. If BSGs remain elevated will need to keep dextrose in tpn the same or decrease until better control obtained. 08/12: * Patient overall better controlled today. Yesterday she received 15 units of sq basal and 14 units sq bolus. I did add 10 units of regular insulin to the TPN starting yesterday afternoon to cover 100g dextrose. This was increased to 15 units for this afternoon's bag as the dextrose content was increased to 150g. * Will plan on increasing Lantus scale this evening. NovoLog CF was tightened at lunchtime and changed to q4 yesterday. 08/10 * Patient required a total of 12 units of insulin yesterday, 9 of which were basal. * Patient initiated on TPN today, receiving 100g of dextrose to start. Of not patient was initiated on dextrose containing fluids yesterday morning and fasting BSG did trend up. Will adjust evening Lantus scale. * Novolog CF tightened. 08/07 * Patient is now POD #0 s/p exploratory laparotomy * Patient remains NPO * BSGs well controlled with only 9 units of basal insulin yesterday/no bolus * Will maintain current regimen today * Continues on diltiazem gtt at 5 mL/hr (containing dextrose) 08/06 * 85yo T2DM female with excellent outpatient control per recent A1c * Pt is maintained on SQ basal bolus regimen as an outpatient. Outpatient regimen is weighted towards prandial insulin. Basal insulin dose should be OK to continue despite NPO but to be safe, typically 50-80% of basal insulin dose is given when NPO. Will set a scale this evening for basal insulin dose based on BSG; if BSG < 160 will give 505 and if BSG >160 will give ~80% . Pt NPO for SBO * Outpatient basal insulin is Tresiba (insulin degludec). This is non-formulary- will convert to Lantus which is a 1:1 conversion. * Will use a weight based CF/CR and titrate based on BSG trends. PLAN FOR INPATIENT GLYCEMIC CONTROL: * Basal insulin * Lantus 0,12, 16, or 20 units SQ HS- SEE MAR for details * Bolus insulin * NovoLog per scale ACHS * Goal Range: Low 110 mg/dL - High 140 mg/dL * Correction Factor: 15 mg/dL/unit * Carb ratio: 1 unit per 4 grams CHO consumed * 20 units regular insulin added to TPN (100g dextrose) PLAN FOR DISCHARGE: * A1c is in goal range for patient based on age/co-morbidities. No changes needed to outpatient regimen unless patient is experiencing frequent hypoglycemia.
[2020-08-15] MEDS ORDERED: Custom Central Pn 1,500 ML in TPN BAG 0 ML IV SCH (16:00)
[2020-08-15] MEDS: DIGOXIN 125 MCG in SYRINGE 9.5 ML IV SCH (16:35)
--- NOTE | 2020-08-15 17:35 | Hospitalist Progress Note ---
Date of Service August 15, 2020 Assessment & Plan (1) Small bowel obstruction: Present on admission with abdominal pain associated with vomiting CT abd/pelvis showed interval development of a small bowel obstruction with a focal transition point within the deep pelvis as described above. Postoperative changes consistent with resection of the distal colon and rectum with a descending colostomy. Surgery on board S/P ex lap and small bowel anastomosis, w/ Dr. Onofre (08/07) GI consulted for hx of GI bleed and NGT placement/management PICC line placed and pt was started on TPN Case discussed with surgery DrSavanna Case that recommended to continue keeping NPO with no PO meds Avoid narcotics and use IV tylenol prn. pt seems to get confused w/ narcotics Pt pulled out NGT on 08/13 Noted solid stool in colostomy bag Starting on clear liquid diet today Continue IV abx Spoke to pharmacy about the TPN that will cut it by half Electrolytes imbalance Electrolytes stable Continue monitor electrolytes (2) Confusion: Seems to be related to steroid in the setting of prolong hospital stays Pt removed her NG tube Moving all extremities No focal neuro deficit on exam Continue one to one sitter Continue monitor closely Clinically improves (3) Parastomal hernia: Chronic, Noted on CT (4) Rectal adenocarcinoma: - Rectal bleeding in Nov 2014 prompted colonoscopy, biopsy and ultimately diagnosis of colon cancer. 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 - [facility] and got xeloda and XRT. (5) Acute respiratory failure with hypoxia: Possible aspiration pneumonia CXR showed showed Interstitial thickening consistent with pulmonary edema. Bilateral airspace opacities which may reflect superimposed pneumonia or alveolar edema. has not been able to get PO Chlorthalidone since pt is NPO Lasix has been given intermittently Will resume PO chlorthalidone in am Saturation well on RA Clinically improved (6) CAD (coronary artery disease): - hx of bypass in 2003 (7) Atrial fibrillation: Paroxysmal, Recurred in 2017. Currently on IV metoprolol scheduled and prn PO metoprolol on hold since pt is NPO Heart rate controlled btw 70 to 80 case discussed with cardiology Continue IV cardizem drip and IV digoxin as per cardiology Pt is able to take PO, will resume her PO metoprolol and add PO digoxin Case discussed with cardiology that recommended PO metoprolol and digoxin to start tomorrow Continue monitor in tele (8) Hydronephrosis: -Reviewed on CT, appears to be chronic, moderate, right-sided, if worsening I's/O's or creatinine/BUN would consider nephrology/urology consultation - Follows with urology as outpt, next appt in August (9) Diabetes mellitus, type 2: -Reduce Tresiba to 9 units daily since n.p.o., ISS with Accu-Cheks, glycemic pharmacy consulted -Last A1c =7.1 on 07/20/20 (10) Hypothyroidism: Convert levothyroxine IV 25 mcg daily (11) CKD (chronic kidney disease): Cr. 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 - Due to NPO, will hold Eliquis and cont. anticoagulation with heparin subq for hx of such, and CKD. DVT ppx: - teds, scds CODE: Full Code Dispo: Continue monitor in PCU Admission and Anticipated Discharge Date Admission Date: August 06, 2020 Subjective Pt was seen and examined for follow up of Afib with RVR and SOB Lying in bed with no distress with one to one sitter Pt is doing much better today She was able to have a normal conversation Her heart rate has been control She started on clear liquid diet Denies any chest pain, palpitation, SOB and fever Review of Systems Review of Systems: All systems reviewed & are unremarkable except as noted in Subjective Physical Exam Physical Exam: General- No acute distress Head- atraumatic Eyes- PERRL, EOMI, ENT- oropharynx clear Neck- supple, no JVD Lungs- +coarse BS Heart- irregular rhythm Abdomen- Hypoactive bowel sound, nontender, +colostomy bag Extremities- no calf tenderness Neuro- alert, oriented x 3; PERRL, EOMI; no facial palsy; no dysarthria Skin- warm & dry Results & Data Results & Data ([facility]) Vital Signs (Past 12 Hours) Vital Signs Temp Pulse Pulse Resp BP BP Pulse Ox 08/15/20 16:35 79 08/15/20 14:49 36.4 C 80 22 110/77 97 08/15/20 12:29 86 118/67 08/15/20 11:30 36.7 C 82 14 118/67 97 08/15/20 08:12 36.4 C L 71 14 129/67 96 (1) Parastomal hernia Obstruction and gangrene presence: without obstruction or gangrene Qualified Code(s): K43.5 - Parastomal hernia without obstruction or gangrene
[2020-08-15] MEDS: INSULIN GLARGINE SOLOSTAR 100 UNITS/ML 3 ML PEN SC SCH (20:09)
[2020-08-16] MEDS: METOPROLOL TARTRATE 1 MG/ML VIAL IV SCH ×2 (00:48→05:43)
[2020-08-16] MEDS: PIPERACILLIN/TAZOBACTAM 4.5 GM in DEXTROSE 5% 100 ML IV SCH ×3 (03:34→21:00)
[2020-08-16] MEDS: dilTIAZem HCL 125 MG in DEXTROSE 5% 100 ML IV SCH (03:35)
[2020-08-16 06:36] LABS: BUN Creatinine Ratio 28.5 (10-20); Calcium 8.3 mg/dl (8.5-10.1); Creatinine Clr Calc Pharmacy 31.7 ml/min; Est GFR (African American) 45.7 ml/min; Est GFR (Non-African American) 39.4 ml/min; Magnesium 1.9 mg/dl (1.8-2.4); Phosphorus 3.5 mg/dl (2.5-4.9); Potassium 3.6 mmol/L (3.5-5.1)
--- NOTE | 2020-08-16 06:37 | Surgery Progress Note ---
Date of Service August 16, 2020 Assessment & Plan (1) S/P laparotomy: Patient begun on clear liquids yesterday-tolerating We will try full liquids for lunch Continue TPN for now until we are sure her diet is stable Add senna syrup Antibiotics per medical team-does not need from a surgical standpoint at this point We will DC CAM drain today Currently on subcu heparin, from surgical standpoint can be placed on other anticoagulant per medical team Admission and Anticipated Discharge Date Admission Date: August 06, 2020 Results & Data ([facility]) Vital Signs (Past 12 Hours) Vital Signs Temp Pulse Pulse Resp BP BP BP 08/16/20 05:43 95 H 132/81 08/16/20 03:00 36.7 C 81 16 137/81 08/16/20 00:48 72 132/78 08/15/20 23:59 84 08/15/20 23:00 36.8 C 75 17 129/88 08/15/20 19:37 36.4 C L 77 18 155/83 H Pulse Ox 08/16/20 05:43 08/16/20 03:00 91 08/16/20 00:48 08/15/20 23:59 08/15/20 23:00 92 08/15/20 19:37 97 PG Care Time/CCT Total # of Minutes Spent Total Time Spent with Patient: Total time spent is greater than 50% in coordination of care (as documented) at patient's floor/unit and/or counseling patient: Coding Level of Care Code None Diagnoses S/P laparotomy Z98.890
[2020-08-16] MEDS: INSULIN ASPART 100 UNITS/ML 3 ML PEN SC SCH ×4 (08:08→21:02)
[2020-08-16] MEDS: HEPARIN SOD 5,000 UNIT/0.5 ML VIAL SQ SCH (08:11)
[2020-08-16] MEDS: FAMOTIDINE 20 MG in SYRINGE 3 ML IV SCH (08:11)
[2020-08-16] MEDS: SENNOSIDES 8.8 MG/5 ML UDC PO SCH ×3 (08:12→22:24)
[2020-08-16] MEDS: LEVOTHYROXINE SODIUM 25 MCG in SYRINGE 0 ML IV SCH (09:05)
[2020-08-16] MEDS: METOPROLOL TARTRATE 25 MG TAB PO SCH ×3 (09:05→22:24)
--- NOTE | 2020-08-16 11:57 | Cardiology Progress Note ---
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 I have also stopped her digoxin. She did take her p.o. metoprolol this morning which should be continued. Admission and Anticipated Discharge Date Admission Date: August 06, 2020 Subjective The patient is resting comfortably. Just starting diet. Physical Exam Physical Exam: General: no acute distress and stated age Head: normocephalic, no masses, lesions, tenderness or abnormalities Eyes: conjunctiva are pink and non-injected, sclera clear Neck: supple, no adenopathy, no bruits, normal jugular venous pulse, no hepatojugular reflux Chest: normal shape and normal respiratory effort Lungs: clear to auscultation and percussion Cardiac Exam: - irregular rate & rhythm, no murmurs gallops or rubs - normal S1, normal S2 Pulses: 2(+) throughout Abdomen: abdomen soft, non-tender, no abnormal masses and no hepatosplenomegaly Musculoskeletal: no gait disturbance, no joint inflammation, no deforming arthritis Extremities: no edema and no cyanosis Neuro: grossly normal exam Results & Data ([facility]) Vital Signs (Past 12 Hours) Vital Signs Temp Pulse Pulse Resp BP BP BP 08/16/20 11:25 36.3 C L 63 17 150/67 H 08/16/20 07:12 36.4 C L 87 18 171/98 H 08/16/20 05:43 95 H 132/81 08/16/20 03:00 36.7 C 81 16 137/81 08/16/20 00:48 72 132/78 08/15/20 23:59 84 Pulse Ox 08/16/20 11:25 96 08/16/20 07:12 98 08/16/20 05:43 08/16/20 03:00 91 08/16/20 00:48 08/15/20 23:59 Laboratory Results Laboratory Results - last 24 hr 08/15/20 08/15/2008/15/21 12:17 16:08 19:56 Sodium Potassium Chloride Carbon Dioxide Anion Gap BUN Creatinine Est Cr Clr Drug Dosing Est GFR ( Amer) Est GFR (Non-Af Amer) BUN/Creatinine Ratio Glucose POC Glucose 164 H 141 H 208 H Calcium Phosphorus Magnesium 08/16/20 08/16/20 08/16/20 05:33 07:10 11:28 Sodium 141 Potassium 3.6 Chloride 109 H Carbon Dioxide 24 Anion Gap 8.0 BUN 35 H Creatinine 1.23 H Est Cr Clr Drug Dosing 31.7 Est GFR ( Amer) 45.7 Est GFR (Non-Af Amer) 39.4 BUN/Creatinine Ratio 28.5 H Glucose 184 H POC Glucose 163 H 201 H Calcium 8.3 L Phosphorus 3.5 Magnesium 1.9 Medications Administered Current Inpatient Medications Dextrose (Dextrose 50% 50 Ml Syringe) 25 - 50 ml IV UD PRN; Protocol PRN Reason: Hypoglycemia Protocol Stop: 09/05/20 13:55 Glucagon (Glucagon For Inj 1 Mg Vial) 1 mg SQ UD PRN; Protocol PRN Reason: Hypoglycemia Protocol Stop: 09/05/20 13:55 Glucose (Glucose 10 Tabs/Tube) 4 - 8 tabs PO UD PRN; Protocol PRN Reason: Hypoglycemia Protocol Stop: 09/05/20 13:55 Heparin Sodium (Beef Lung) (Heparin 10 Unit/Ml 5 Ml Flush) 5 ml FLUSH PRN PRN PRN Reason: Flush Stop: 09/09/20 12:50 Heparin Sodium (Porcine) (Heparin Sod 5,000 Unit/0.5 Ml Vial) 5,000 units SQ Q12 [facility] Stop: 09/05/20 20:59 Last Admin: 08/16/20 08:11 Dose: 5,000 units Documented by: Hydromorphone HCl (Hydromorphone Inj 0.5 Mg/0.5 Ml Syr) 0.5 mg IV Q3HWA PRN PRN Reason: Pain 1-5 Stop: 08/21/20 14:33 Last Admin: 08/13/20 14:21 Dose: 0.5 mg Documented by: Levothyroxine Sodium 25 mcg/ (Syringe) 1.25 mls @ 2 mls/min IV Q72H [facility]; Protocol Stop: 09/06/20 08:59 Last Admin: 08/16/20 09:05 Dose: 2 mls/min Documented by: Famotidine 20 mg/ Syringe 5 mls @ 2.5 mls/min IV DAILY [facility] Stop: 09/06/20 08:59 Last Admin: 08/16/20 08:11 Dose: 2.5 mls/min Documented by: Promethazine HCl 12.5 mg/ (Sodium Chloride) 50.5 mls @ 202 mls/hr IV Q6H PRN PRN Reason: Nausea And Vomiting Stop: 09/05/20 19:44 Last Infusion: 08/07/20 06:56 Dose: Infused Documented by: Dextrose (D10w) 1,000 mls @ 0 mls/hr IV .Q0M PRN PRN Reason: protocol (see label comments) Stop: 09/09/20 08:02 Piperacillin Sod/Tazobactam (Sod 4.5 gm/ Dextrose) 120 mls @ 30 mls/hr IV Q8H [facility]; Protocol Stop: 08/20/20 03:59 Last Admin: 08/16/20 11:51 Dose: 30 mls/hr Documented by: Nutrition (Parenteral) 1,500 (ml/ TPN BAG) 1,500 mls @ 62.5 mls/hr IV .Q24H [facility]; Protocol Stop: 08/16/20 15:59 Last Admin: 08/15/20 16:28 Dose: 62.5 mls/hr Documented by: Nutrition (Parenteral) 1,500 (ml/ TPN BAG) 1,500 mls @ 62.5 mls/hr IV .Q24H [facility]; Protocol Stop: 08/17/20 15:59 Insulin Aspart (Insulin Aspart 100 Units/Ml 3 Ml Pen) 0 units SC ACHS [facility]; Protocol Stop: 09/14/20 11:29 Last Admin: 08/16/20 11:54 Dose: 5 units Documented by: Insulin Glargine (Insulin Glargine Solostar 100 Units/Ml 3 Ml Pen) [address] [facility]; Protocol Stop: 09/08/20 20:59 Last Admin: 08/15/20 20:09 Dose: 20 units Documented by: Metoprolol Tartrate (Metoprolol Tartrate 1 Mg/Ml Vial) 2.5 mg IV Q4 PRN PRN Reason: HR >115 Stop: 09/09/20 15:59 Last Admin: 08/12/20 08:27 Dose: 2.5 mg Documented by: Metoprolol Tartrate (Metoprolol Tartrate 25 Mg Tab) 75 mg PO BID [facility] Stop: 09/15/20 08:59 Last Admin: 08/16/20 09:05 Dose: 75 mg Documented by: Miscellaneous Information (Pharmacy Glycemic Mgmt Consult) 1 ea N/A UD PRN; Protocol PRN Reason: Consult Stop: 09/05/20 14:20 Miscellaneous Information (Tpn/Ppn Consult Pharmacy) 1 ea N/A UD PRN PRN Reason: Consult Stop: 09/09/20 14:26 Miscellaneous Information (Piperacill/Tazobac Consult Active) 1 ea N/A UD PRN PRN Reason: Consult Stop: 09/11/20 21:49 Ondansetron HCl (Ondansetron Inj 2 Mg/Ml 2 Ml Vial) 4 mg IV 4XDQ4H PRN PRN Reason: Nausea Stop: 09/06/20 14:33 Sennosides (Sennosides 8.8 Mg/5 Ml Udc) 8.8 mg PO BID [facility] Stop: 09/15/20 08:59 Last Admin: 08/16/20 08:12 Dose: 8.8 mg Documented by:
[2020-08-16 14:10] LABS: Hematocrit (blood only) 38.5 % (37-47); Hemoglobin 12.8 g/dL (12.0-16.0); Mean Corpuscular Hemoglobin 29.6 pg (25-34); Mean Corpuscular Hgb Conc 33.2 g/dL (32-36); Mean Corpuscular Volume 88.9 fL (80-100); Mean Platelet Volume 9.7 fL (7.4-10.4); Platelet Count 448 K/uL (130-400); RDW Coefficient of Variation 15.2 % (11.5-14.5); RDW Standard Deviation 49.1 fL (36.4-46.3); Red Blood Count 4.33 M/uL (4.2-5.4); White Blood Count 8.42 K/uL (4.8-10.8)
[2020-08-16] MEDS ORDERED: DIGOXIN 0.125 MG TAB PO SCH (16:00)
[2020-08-16] MEDS ORDERED: Custom Central Pn 1,500 ML in TPN BAG 0 ML IV SCH (16:00)
[2020-08-16 16:20] LABS: BUN Creatinine Ratio 28.4 (10-20); Bilirubin,Total 0.6 mg/dl (0.2-1); Calcium 8.3 mg/dl (8.5-10.1); Creatinine Clr Calc Pharmacy 30.5 ml/min; Est GFR (African American) 43.5 ml/min; Est GFR (Non-African American) 37.6 ml/min; Magnesium 1.8 mg/dl (1.8-2.4); Phosphorus 3.5 mg/dl (2.5-4.9); Potassium 4.5 mmol/L (3.5-5.1)
--- NOTE | 2020-08-16 17:35 | Hospitalist Progress Note ---
Date of Service August 16, 2020 Assessment & Plan (1) Small bowel obstruction: Present on admission with abdominal pain associated with vomiting CT abd/pelvis showed interval development of a small bowel obstruction with a focal transition point within the deep pelvis as described above. Postoperative changes consistent with resection of the distal colon and rectum with a descending colostomy. Surgery on board S/P ex lap and small bowel anastomosis, w/ Dr. Onofre (08/07) GI consulted for hx of GI bleed and NGT placement/management PICC line placed and pt was started on TPN Case discussed with surgery DrSavanna Case that recommended to continue keeping NPO with no PO meds Avoid narcotics and use IV tylenol prn. pt seems to get confused w/ narcotics Pt pulled out NGT on 08/13 Noted solid stool in colostomy bag 08/16/20 Diet advanced to full liquid diet TPN was cut to half after discussing with pharmacy Surgery recommended to continue TPN for now until sure diet was tolerated Will discontinue abx Surgery plan to DC CAM draining Continue monitor Electrolytes imbalance Electrolytes stable Continue monitor electrolytes (2) Confusion: Seems to be related to steroid in the setting of prolong hospital stays Pt removed her NG tube Moving all extremities No focal neuro deficit on exam Continue one to one sitter Continue monitor closely Clinically improves (3) Parastomal hernia: Chronic, Noted on CT (4) Rectal adenocarcinoma: - Rectal bleeding in Nov 2014 prompted colonoscopy, biopsy and ultimately diagnosis of colon cancer. 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 - Followed previously with [facility] and got xeloda and XRT. (5) Acute respiratory failure with hypoxia: Possible aspiration pneumonia CXR showed showed Interstitial thickening consistent with pulmonary edema. Bilateral airspace opacities which may reflect superimposed pneumonia or alveolar edema. has not been able to get PO Chlorthalidone since pt is NPO Lasix has been given intermittently Plan to resume PO chlorthalidone once diet advance Saturation well on RA Clinically improved (6) CAD (coronary artery disease): - hx of bypass in 2003 (7) Atrial fibrillation: Paroxysmal, Recurred in 2017. Currently on IV metoprolol scheduled and prn PO metoprolol on hold since pt is NPO Heart rate controlled btw 70 to 80 case discussed with cardiology IV Cardizem drip and IV digoxin were discontinued, then resumed PO Metoprolol Continue monitor in telemetry (8) Hydronephrosis: -Reviewed on CT, appears to be chronic, moderate, right-sided, if worsening I's/O's or creatinine/BUN would consider nephrology/urology consultation - Follows with urology as outpt, next appt in August (9) Diabetes mellitus, type 2: -Reduce Tresiba to 9 units daily since n.p.o., ISS with Accu-Cheks, glycemic pharmacy consulted -Last A1c =7.1 on 07/20/20 (10) Hypothyroidism: On levothyroxine IV 25 mcg daily, will transition to PO Levoth (11) CKD (chronic kidney disease): Cr. 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 - Due to NPO, Eliquis was on hold. anticoagulation with heparin subq for hx of such, and CKD. Will resume Eliquis DVT ppx: Heparin subq will transition to Eliquis CODE: Full Code Dispo: Continue monitor in PCU Admission and Anticipated Discharge Date Admission Date: August 06, 2020 Subjective Pt was seen and examined for follow up of Afib with RVR and SOB Lying in bed with no distress Her mental status has been better and no one to one sitter at bedside Pt is doing much better Her diet advanced to full liquid Denies any chest pain, palpitation, SOB and fever Review of Systems Review of Systems: All systems reviewed & are unremarkable except as noted in Subjective Physical Exam Physical Exam: General- No acute distress Head- atraumatic Eyes- PERRL, EOMI, ENT- oropharynx clear Neck- supple, no JVD Lungs- +coarse BS Heart- irregular rhythm Abdomen- Hypoactive bowel sound, nontender, +colostomy bag Extremities- no calf tenderness Neuro- alert, oriented x 3; PERRL, EOMI; no facial palsy; no dysarthria Skin- warm & dry Results & Data Results & Data ([facility]) Vital Signs (Past 12 Hours) Vital Signs Temp Pulse Pulse Resp BP BP Pulse Ox 08/16/20 15:48 36.6 C 77 17 122/85 98 08/16/20 11:25 36.3 C L 63 17 150/67 H 96 08/16/20 07:12 36.4 C L 87 18 171/98 H 98 08/16/20 05:43 95 H 132/81 (1) Parastomal hernia Obstruction and gangrene presence: without obstruction or gangrene Qualified Code(s): K43.5 - Parastomal hernia without obstruction or gangrene
[2020-08-16] MEDS: INSULIN GLARGINE SOLOSTAR 100 UNITS/ML 3 ML PEN SC SCH (21:02)
[2020-08-16] MEDS: APIXABAN 2.5 MG TAB PO SCH ×2 (21:04→22:24)
[2020-08-17] MEDS: METOPROLOL TARTRATE 1 MG/ML VIAL IV SCH ×5 (00:10→11:44)
[2020-08-17 00:38] LABS: Appearance Urine Clear (Clear); Bilirubin Urine Negative (Negative); Blood Urine Negative (Negative); Color Urine Yellow; Glucose Urine UA Negative (Negative); Ketones Urine Negative (Negative); Leukocyte Esterase Urine Negative (Negative); Nitrite Urine Negative (Negative); Protein Urine Negative (Negative); Urobilinogen Urine Negative (Negative); pH Urine 5.5 (4.5-7.5)
[2020-08-17] MEDS: PIPERACILLIN/TAZOBACTAM 4.5 GM in DEXTROSE 5% 100 ML IV SCH ×2 (04:54→11:46)
[2020-08-17] MEDS: LEVOTHYROXINE SODIUM 50 MCG TABLET PO SCH (06:10)
[2020-08-17 06:46] LABS: Partial Thromboplastin Time 25.4 Seconds (21.0-31.0)
[2020-08-17 06:53] LABS: BUN Creatinine Ratio 29.1 (10-20); Calcium 8.2 mg/dl (8.5-10.1); Creatinine Clr Calc Pharmacy 32.7 ml/min; Est GFR (African American) 46.6 ml/min; Est GFR (Non-African American) 40.2 ml/min; Potassium 4.1 mmol/L (3.5-5.1)
[2020-08-17] MEDS: INSULIN ASPART 100 UNITS/ML 3 ML PEN SC SCH ×4 (07:58→20:53)
[2020-08-17] MEDS: FAMOTIDINE 20 MG in SYRINGE 3 ML IV SCH (08:44)
[2020-08-17] MEDS: SENNOSIDES 8.8 MG/5 ML UDC PO SCH ×2 (08:48→21:02)
[2020-08-17] MEDS: APIXABAN 2.5 MG TAB PO SCH ×2 (08:48→21:02)
--- NOTE | 2020-08-17 09:32 | Surgery Progress Note ---
Date of Service August 17, 2020 Assessment & Plan (1) S/P laparotomy: Patient is sitting in her chair She is tolerating her full liquid diet-colostomy is functioning She is on TPN and we will stop after the current bag is complete Try to keep the PICC line for now To the regular floor when okay with the medical team We will DC the Jakob drain in her incision today or tomorrow We will need extended care for discharge Admission and Anticipated Discharge Date Admission Date: August 06, 2020 Results & Data ([facility]) Vital Signs (Past 12 Hours) Vital Signs Temp Pulse Pulse Resp BP BP Pulse Ox 08/17/20 07:16 36.4 C L 64 17 139/68 98 08/17/20 06:09 67 08/17/20 05:36 36.4 C L 75 18 149/75 H 99 08/17/20 00:12 59 L 08/16/20 23:59 36.4 C L 70 18 147/67 H 97 PG Care Time/CCT Total # of Minutes Spent Total Time Spent with Patient: Total time spent is greater than 50% in coordination of care (as documented) at patient's floor/unit and/or counseling patient: Coding Level of Care Code None Diagnoses S/P laparotomy Z98.890
--- NOTE | 2020-08-17 13:55 | Cardiology Progress Note ---
Date of Service August 17, 2020 Assessment & Plan (1) Atrial fibrillation: (2) CAD (coronary artery disease): (3) Rectal adenocarcinoma: (4) Supratherapeutic INR: (5) Weakness: (6) Acute kidney injury superimposed on chronic kidney disease: (7) Small bowel obstruction: (8) Embolism and thrombosis of arteries of lower extremity: (9) Diabetes mellitus, type 2: The patient is doing well. She is currently on metoprolol only and has adequate heart rate control. Admission and Anticipated Discharge Date Admission Date: August 06, 2020 Subjective The patient continues to improve. She is taking oral medications. Review of Systems Review of Systems: All systems reviewed & are unremarkable except as noted in Subjective Physical Exam Physical Exam: General: no acute distress and stated age Head: normocephalic, no masses, lesions, tenderness or abnormalities Eyes: conjunctiva are pink and non-injected, sclera clear Neck: supple, no adenopathy, no bruits, normal jugular venous pulse, no hepatojugular reflux Chest: normal shape and normal respiratory effort Lungs: clear to auscultation and percussion Cardiac Exam: - irregular rate & rhythm, no murmurs gallops or rubs - normal S1, normal S2 Pulses: 2(+) throughout Abdomen: abdomen soft, non-tender, no abnormal masses and no hepatosplenomegaly Musculoskeletal: no gait disturbance, no joint inflammation, no deforming arthritis Extremities: no edema and no cyanosis Neuro: grossly normal exam Results & Data ([facility]) Vital Signs (Past 12 Hours) Vital Signs Temp Pulse Pulse Resp BP BP BP 08/17/20 11:44 91 H 106/48 L 08/17/20 10:51 36.4 C L 90 18 106/48 L 08/17/20 08:00 91 H 08/17/20 07:16 36.4 C L 64 17 139/68 08/17/20 06:09 67 08/17/20 05:36 36.4 C L 75 18 149/75 H Pulse Ox 08/17/20 11:44 08/17/20 10:51 98 08/17/20 08:00 08/17/20 07:16 98 08/17/20 06:09 08/17/20 05:36 99 Laboratory Results Laboratory Results - last 24 hr 08/16/20 08/16/20 08/16/20 05:37 15:34 16:22 WBC 8.42 RBC 4.33 Hgb 12.8 Hct 38.5 MCV 88.9 MCH 29.6 MCHC 33.2 RDW Std Deviation 49.1 H RDW Coeff of Kei 15.2 H Plt Count 448 H MPV 9.7 APTT PTT Ratio Sodium 140 Potassium 4.5 D Chloride 110 H Carbon Dioxide 21 Anion Gap 9.0 BUN 36 H Creatinine 1.28 H Est Cr Clr Drug Dosing 30.5 Est GFR ( Amer) 43.5 Est GFR (Non-Af Amer) 37.6 BUN/Creatinine Ratio 28.4 H Glucose 193 H POC Glucose 170 H Calcium 8.3 L Phosphorus 3.5 Magnesium 1.8 Total Bilirubin 0.6 AST 27 ALT 21 Alkaline Phosphatase 84 Ammonia Triglycerides 110 Urine Color Urine Appearance Urine pH Ur Specific [place] Urine Protein Urine Glucose (UA) Urine Ketones Urine Blood Urine Nitrite Urine Bilirubin Urine Urobilinogen Ur Leukocyte Esterase 08/16/20 08/17/20 08/17/20 19:30 00:25 06:10 WBC RBC Hgb Hct MCV MCH MCHC RDW Std Deviation RDW Coeff of Kei Plt Count MPV APTT PTT Ratio Sodium 140 Potassium 4.1 Chloride 108 H Carbon Dioxide 26 Anion Gap 6.0 BUN 35 H Creatinine 1.21 H Est Cr Clr Drug Dosing 32.7 Est GFR ( Amer) 46.6 Est GFR (Non-Af Amer) 40.2 BUN/Creatinine Ratio 29.1 H Glucose 166 H POC Glucose 189 H Calcium 8.2 L Phosphorus Magnesium Total Bilirubin AST ALT Alkaline Phosphatase Ammonia Triglycerides Urine Color Yellow Urine Appearance Clear Urine pH 5.5 Ur Specific [place] 1.020 Urine Protein Negative Urine Glucose (UA) Negative Urine Ketones Negative Urine Blood Negative Urine Nitrite Negative Urine Bilirubin Negative Urine Urobilinogen Negative Ur Leukocyte Esterase Negative 08/17/20 08/17/20 08/17/20 06:10 06:16 07:18 WBC RBC Hgb Hct MCV MCH MCHC RDW Std Deviation RDW Coeff of Kei Plt Count MPV APTT 25.4 PTT Ratio 1.0 Sodium Potassium Chloride Carbon Dioxide Anion Gap BUN Creatinine Est Cr Clr Drug Dosing Est GFR ( Amer) Est GFR (Non-Af Amer) BUN/Creatinine Ratio Glucose POC Glucose 144 H Calcium Phosphorus Magnesium Total Bilirubin AST ALT Alkaline Phosphatase Ammonia 29.6 Triglycerides Urine Color Urine Appearance Urine pH Ur Specific [place] Urine Protein Urine Glucose (UA) Urine Ketones Urine Blood Urine Nitrite Urine Bilirubin Urine Urobilinogen Ur Leukocyte Esterase 08/17/20 11:26 WBC RBC Hgb Hct MCV MCH MCHC RDW Std Deviation RDW Coeff of Kei Plt Count MPV APTT PTT Ratio Sodium Potassium Chloride Carbon Dioxide Anion Gap BUN Creatinine Est Cr Clr Drug Dosing Est GFR ( Amer) Est GFR (Non-Af Amer) BUN/Creatinine Ratio Glucose POC Glucose 180 H Calcium Phosphorus Magnesium Total Bilirubin AST ALT Alkaline Phosphatase Ammonia Triglycerides Urine Color Urine Appearance Urine pH Ur Specific [place] Urine Protein Urine Glucose (UA) Urine Ketones Urine Blood Urine Nitrite Urine Bilirubin Urine Urobilinogen Ur Leukocyte Esterase Medications Administered Current Inpatient Medications Apixaban (Apixaban 2.5 Mg Tab) 2.5 mg PO BID CORTEZ Stop: 09/15/20 20:59 Last Admin: 08/17/20 08:48 Dose: 2.5 mg Documented by: Dextrose (Dextrose 50% 50 Ml Syringe) 25 - 50 ml IV UD PRN; Protocol PRN Reason: Hypoglycemia Protocol Stop: 09/05/20 13:55 Glucagon (Glucagon For Inj 1 Mg Vial) 1 mg SQ UD PRN; Protocol PRN Reason: Hypoglycemia Protocol Stop: 09/05/20 13:55 Glucose (Glucose 10 Tabs/Tube) 4 - 8 tabs PO UD PRN; Protocol PRN Reason: Hypoglycemia Protocol Stop: 09/05/20 13:55 Heparin Sodium (Beef Lung) (Heparin 10 Unit/Ml 5 Ml Flush) 5 ml FLUSH PRN PRN PRN Reason: Flush Stop: 09/09/20 12:50 Hydromorphone HCl (Hydromorphone Inj 0.5 Mg/0.5 Ml Syr) 0.5 mg IV Q3HWA PRN PRN Reason: Pain 1-5 Stop: 08/21/20 14:33 Last Admin: 08/13/20 14:21 Dose: 0.5 mg Documented by: Famotidine 20 mg/ Syringe 5 mls @ 2.5 mls/min IV DAILY CORTEZ Stop: 09/06/20 08:59 Last Admin: 08/17/20 08:44 Dose: 2.5 mls/min Documented by: Promethazine HCl 12.5 mg/ (Sodium Chloride) 50.5 mls @ 202 mls/hr IV Q6H PRN PRN Reason: Nausea And Vomiting Stop: 09/05/20 19:44 Last Infusion: 08/07/20 06:56 Dose: Infused Documented by: Dextrose (D10w) 1,000 mls @ 0 mls/hr IV .Q0M PRN PRN Reason: protocol (see label comments) Stop: 09/09/20 08:02 Nutrition (Parenteral) 1,500 (ml/ TPN BAG) 1,500 mls @ 62.5 mls/hr IV .Q24H [facility]; Protocol Stop: 08/17/20 15:59 Last Admin: 08/16/20 16:43 Dose: 62.5 mls/hr Documented by: Insulin Aspart (Insulin Aspart 100 Units/Ml 3 Ml Pen) 0 units SC [facility]; Protocol Stop: 09/14/20 11:29 Last Admin: 08/17/20 11:42 Dose: 16 units Documented by: Insulin Glargine (Insulin Glargine Solostar 100 Units/Ml 3 Ml Pen) 20 units SC [facility]; Protocol Stop: 09/08/20 20:59 Last Admin: 08/16/20 21:02 Dose: 20 units Documented by: Levothyroxine Sodium (Levothyroxine Sodium 50 Mcg Tablet) 50 mcg PO DAILYBB [facility] Stop: 09/16/20 06:29 Last Admin: 08/17/20 06:10 Dose: 50 mcg Documented by: Metoprolol Tartrate (Metoprolol Tartrate 25 Mg Tab) 75 mg PO BID [facility] Stop: 09/15/20 08:59 Last Admin: 08/16/20 22:24 Dose: Not Given Documented by: Miscellaneous Information (Pharmacy Glycemic Mgmt Consult) 1 ea N/A UD PRN; Protocol PRN Reason: Consult Stop: 09/05/20 14:20 Miscellaneous Information (Tpn/Ppn Consult Pharmacy) 1 ea N/A UD PRN PRN Reason: Consult Stop: 08/17/20 16:00 Ondansetron HCl (Ondansetron Inj 2 Mg/Ml 2 Ml Vial) 4 mg IV [id number] PRN PRN Reason: Nausea Stop: 09/06/20 14:33 Sennosides (Sennosides 8.8 Mg/5 Ml Udc) 8.8 mg PO BID [facility] Stop: 09/15/20 08:59 Last Admin: 08/17/20 08:48 Dose: 8.8 mg Documented by:
--- NOTE | 2020-08-17 15:31 | Hospitalist Progress Note ---
Date of Service August 17, 2020 Assessment & Plan (1) Small bowel obstruction: Present on admission with abdominal pain associated with vomiting CT abd/pelvis showed interval development of a small bowel obstruction with a focal transition point within the deep pelvis as described above. Postoperative changes consistent with resection of the distal colon and rectum with a descending colostomy. Surgery on board S/P ex lap and small bowel anastomosis, w/ Dr. Onofre (08/07) GI consulted for hx of GI bleed and NGT placement/management PICC line placed and pt was started on TPN Case discussed with surgery DrSavanna Case that recommended to continue keeping NPO with no PO meds Avoid narcotics and use IV tylenol prn. pt seems to get confused w/ narcotics Pt pulled out NGT on 08/13 Noted solid stool in colostomy bag 08/17/20 Tolerated full liquid diet TPN was cut to half after discussing with pharmacy, will stop after today bag Surgery plan to DC the Jakob drain in her incision today or tomorrow Abx discontinued Continue monitor Will need placement Electrolytes imbalance Electrolytes stable Continue monitor electrolytes (2) Confusion: Seems to be related to steroid in the setting of prolong hospital stays Pt removed her NG tube Moving all extremities No focal neuro deficit on exam Continue one to one sitter Continue monitor closely back to her baseline (3) Parastomal hernia: Chronic, Noted on CT (4) Rectal adenocarcinoma: - Rectal bleeding in Nov 2014 prompted colonoscopy, biopsy and ultimately diagnosis of colon cancer. 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 - Followed previously with [facility] and got xeloda and XRT. (5) Acute respiratory failure with hypoxia: Possible aspiration pneumonia CXR showed showed Interstitial thickening consistent with pulmonary edema. Bilateral airspace opacities which may reflect superimposed pneumonia or alveolar edema. has not been able to get PO Chlorthalidone since pt is NPO Lasix has been given intermittently Plan to resume PO chlorthalidone once diet advance Saturation well on RA Resolved (6) CAD (coronary artery disease): - hx of bypass in 2003 (7) Atrial fibrillation: Paroxysmal, Recurred in 2017. Currently on IV metoprolol scheduled and prn PO metoprolol on hold since pt is NPO Heart rate controlled btw 70 to 80 case discussed with cardiology IV Cardizem drip and IV digoxin were discontinued, then resumed PO Metoprolol Will transfer to medical (8) Hydronephrosis: -Reviewed on CT, appears to be chronic, moderate, right-sided, if worsening I's/O's or creatinine/BUN would consider nephrology/urology consultation - Follows with urology as outpt, next appt in August (9) Diabetes mellitus, type 2: -Reduce Tresiba to 9 units daily since n.p.o., ISS with Accu-Cheks, glycemic pharmacy consulted -Last A1c =7.1 on 07/20/20 (10) Hypothyroidism: On levothyroxine IV 25 mcg daily, transition to PO Levothyroxine (11) CKD (chronic kidney disease): Cr. 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 - Due to NPO, Eliquis was on hold. anticoagulation with heparin subq for hx of such, and CKD. Continue Eliquis DVT ppx: Heparin subq discontinued, then transition to Eliquis CODE: Full Code Dispo: Will transfer to medical Admission and Anticipated Discharge Date Admission Date: August 06, 2020 Subjective Pt was seen and examined for follow up of Afib with RVR and SOB Lying in bed with no distress Pt is doing much better Mental status is back to baseline She was sitting in the chair early this morning She tolerated full liquid diet Denies any chest pain, palpitation, SOB and fever Review of Systems Review of Systems: All systems reviewed & are unremarkable except as noted in Subjective Physical Exam Physical Exam: General- No acute distress Head- atraumatic Eyes- PERRL, EOMI, ENT- oropharynx clear Neck- supple, no JVD Lungs- No wheezing or rale Heart- irregular rhythm Abdomen- Hypoactive bowel sound, nontender, +colostomy bag Extremities- no calf tenderness Neuro- alert, oriented x 3; PERRL, EOMI; no facial palsy; no dysarthria Skin- warm & dry Results & Data Results & Data ([facility]) Vital Signs (Past 12 Hours) Vital Signs Temp Pulse Pulse Resp BP BP BP 08/17/20 11:44 91 H 106/48 L 08/17/20 10:51 36.4 C L 90 18 106/48 L 08/17/20 08:00 91 H 08/17/20 07:16 36.4 C L 64 17 139/68 08/17/20 06:09 67 08/17/20 05:36 36.4 C L 75 18 149/75 H Pulse Ox 08/17/20 11:44 08/17/20 10:51 98 08/17/20 08:00 08/17/20 07:16 98 08/17/20 06:09 08/17/20 05:36 99 (1) Parastomal hernia Obstruction and gangrene presence: without obstruction or gangrene Qualified Code(s): K43.5 - Parastomal hernia without obstruction or gangrene
[2020-08-17] MEDS ORDERED: METOPROLOL TARTRATE 25 MG TAB PO ONE (16:06)
[2020-08-17] MEDS: METOPROLOL TARTRATE 25 MG TAB PO SCH (21:02)
[2020-08-17] MEDS: INSULIN GLARGINE SOLOSTAR 100 UNITS/ML 3 ML PEN SC SCH (21:02)
[2020-08-18] MEDS: LEVOTHYROXINE SODIUM 50 MCG TABLET PO SCH (05:41)
--- NOTE | 2020-08-18 07:29 | Hospitalist Progress Note ---
Date of Service August 18, 2020 Assessment & Plan (1) Small bowel obstruction: Present on admission with abdominal pain associated with vomiting CT abd/pelvis showed interval development of a small bowel obstruction with a focal transition point within the deep pelvis as described above. Postoperative changes consistent with resection of the distal colon and rectum with a descending colostomy. Surgery on board S/P ex lap and small bowel anastomosis, w/ Dr. Onofre (08/07) GI consulted for hx of GI bleed and NGT placement/management PICC line placed and pt was started on TPN Case discussed with surgery DrSavanna Case that recommended to continue keeping NPO with no PO meds Avoid narcotics and use IV tylenol prn. pt seems to get confused w/ narcotics Pt pulled out NGT on 08/13 Noted solid stool in colostomy bag 08/17/20 Tolerated full liquid diet TPN was cut to half after discussing with pharmacy, now stopped Surgery plan to DC the [place] drain in her incision today or tomorrow Abx discontinued Continue monitor Will need placement Electrolytes imbalance Electrolytes stable Continue monitor electrolytes (2) Confusion: Seems to be related to steroid in the setting of prolong hospital stays Pt removed her NG tube Moving all extremities No focal neuro deficit on exam No more 1:1 sitter Continue monitor closely back to her baseline (3) Parastomal hernia: Chronic, Noted on CT (4) Rectal adenocarcinoma: - Rectal bleeding in Nov 2014 prompted colonoscopy, biopsy and ultimately diagnosis of colon cancer. 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 - Followed previously with [facility] and got xeloda and XRT. (5) Acute respiratory failure with hypoxia: Possible aspiration pneumonia CXR showed showed Interstitial thickening consistent with pulmonary edema. Bilateral airspace opacities which may reflect superimposed pneumonia or alveolar edema. has not been able to get PO Chlorthalidone since pt is NPO Lasix has been given intermittently Plan to resume PO chlorthalidone once diet advance Saturation well on RA Resolved (6) CAD (coronary artery disease): - hx of bypass in 2003 (7) Atrial fibrillation: Paroxysmal, Recurred in 2017. Currently on IV metoprolol scheduled and prn PO metoprolol on hold since pt is NPO Heart rate controlled btw 70 to 80 case discussed with cardiology IV Cardizem drip and IV digoxin were discontinued, then resumed PO Metoprolol Will transfer to medical (8) Hydronephrosis: -Reviewed on CT, appears to be chronic, moderate, right-sided, if worsening I's/O's or creatinine/BUN would consider nephrology/urology consultation - Follows with urology as outpt, next appt in August (9) Diabetes mellitus, type 2: -Reduce Tresiba to 9 units daily since n.p.o., ISS with Accu-Cheks, glycemic pharmacy consulted -Last A1c =7.1 on 07/20/20 (10) Hypothyroidism: On levothyroxine IV 25 mcg daily, transition to PO Levothyroxine (11) CKD (chronic kidney disease): Cr. 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 - Due to NPO, Eliquis was on hold. anticoagulation with heparin subq for hx of such, and CKD. Continue Eliquis DVT ppx: Heparin subq discontinued, then transition to Eliquis CODE: Full Code Dispo: transferred to medical Admission and Anticipated Discharge Date Admission Date: August 06, 2020 Subjective Pt was seen and examined for follow up of SBP, Afib with RVR Lying in bed with no distress Pt is doing much better Mental status is back to baseline She was sitting in the chair yesterday She tolerated breakfast this AM, no complaints, no nausea or abdominal pain TPN stopped yesterday Denies any chest pain, palpitation, SOB and fever Review of Systems Review of Systems: All systems reviewed & are unremarkable except as noted in HPI & below Constitutional: no fever and no chills Respiratory: no cough and no dyspnea Cardiovascular: no chest pain and no palpitations Gastrointestinal: no abdominal pain, no nausea and no vomiting Physical Exam Physical Exam: General- Elderly female lying in bed, No acute distress Head- atraumatic Eyes- PERRL, EOMI, ENT- oropharynx clear Neck- supple, no JVD Lungs- No wheezing or rales Heart- irregular rhythm Abdomen- +bowel sound, nontender, +colostomy bag, + clean surg. dressings applied Extremities- no calf tenderness, moves extremities Neuro- alert, oriented x 3; PERRL, EOMI; no facial palsy; no dysarthria Skin- warm & dry Results & Data Results & Data ([facility]) Vital Signs (Past 12 Hours) Vital Signs Temp Pulse Resp BP Pulse Ox 08/18/20 07:20 36.6 C 76 16 131/79 98 08/18/20 05:48 104/62 08/17/20 23:21 36.8 C 77 18 95/56 L 95 08/17/20 20:41 36.7 C 79 22 113/72 97 Laboratory Results 08/18/20 08/18/20 08/18/20 Range/Units 08:23 08:23 08:09 WBC 8.57 (4.8-10.8) K/uL RBC 4.03 L (4.2-5.4) M/uL Hgb 11.8 L (12.0-16.0) g/dL Hct 35.9 L (37-47) % MCV 89.1 (80-100) fL MCH 29.3 (25-34) pg MCHC 32.9 (32-36) g/dL RDW Std Deviation 50.6 H (36.4-46.3) fL RDW Coeff of Kei 15.6 H (11.5-14.5) % Plt Count 432 H (130-400) K/uL MPV 9.2 (7.4-10.4) fL Sodium 138 (136-145) mmol/L Potassium 4.0 (3.5-5.1) mmol/L Chloride 106 (98-107) mmol/L Carbon Dioxide 25 (21-32) mmol/L Anion Gap 7.0 (3-11) BUN 42 H (7-18) mg/dl Creatinine 1.39 H (0.6-1.2) mg/dl Est Cr Clr Drug Dosing 28.5 ml/min Est GFR ( Amer) 39.4 ml/min Est GFR (Non-Af Amer) 34.0 ml/min BUN/Creatinine Ratio 29.9 H (10-20) Glucose 79 (70-99) mg/dl POC Glucose 82 (70-99) mg/dl Calcium 9.1 (8.5-10.1) mg/dl Phosphorus 4.0 (2.5-4.9) mg/dl Magnesium 2.0 (1.8-2.4) mg/dl 08/17/20 08/17/20 08/17/20 Range/Units 20:44 20:32 16:36 WBC (4.8-10.8) K/uL RBC (4.2-5.4) M/uL Hgb (12.0-16.0) g/dL Hct (37-47) % MCV (80-100) fL MCH (25-34) pg MCHC (32-36) g/dL RDW Std Deviation (36.4-46.3) fL RDW Coeff of Kei (11.5-14.5) % Plt Count (130-400) K/uL MPV (7.4-10.4) fL Sodium (136-145) mmol/L Potassium (3.5-5.1) mmol/L Chloride (98-107) mmol/L Carbon Dioxide (21-32) mmol/L Anion Gap (3-11) BUN (7-18) mg/dl Creatinine (0.6-1.2) mg/dl Est Cr Clr Drug Dosing ml/min Est GFR ( Amer) ml/min Est GFR (Non-Af Amer) ml/min BUN/Creatinine Ratio (10-20) Glucose (70-99) mg/dl POC Glucose 80 73 101 H (70-99) mg/dl Calcium (8.5-10.1) mg/dl Phosphorus (2.5-4.9) mg/dl Magnesium (1.8-2.4) mg/dl 08/17/20 Range/Units 11:26 WBC (4.8-10.8) K/uL RBC (4.2-5.4) M/uL Hgb (12.0-16.0) g/dL Hct (37-47) % MCV (80-100) fL MCH (25-34) pg MCHC (32-36) g/dL RDW Std Deviation (36.4-46.3) fL RDW Coeff of Kei (11.5-14.5) % Plt Count (130-400) K/uL MPV (7.4-10.4) fL Sodium (136-145) mmol/L Potassium (3.5-5.1) mmol/L Chloride (98-107) mmol/L Carbon Dioxide (21-32) mmol/L Anion Gap (3-11) BUN (7-18) mg/dl Creatinine (0.6-1.2) mg/dl Est Cr Clr Drug Dosing ml/min Est GFR ( Amer) ml/min Est GFR (Non-Af Amer) ml/min BUN/Creatinine Ratio (10-20) Glucose (70-99) mg/dl POC Glucose 180 H (70-99) mg/dl Calcium (8.5-10.1) mg/dl Phosphorus (2.5-4.9) mg/dl Magnesium (1.8-2.4) mg/dl Medications Administered Current Inpatient Medications Apixaban (Apixaban 2.5 Mg Tab) 2.5 mg PO BID CORTEZ Stop: 09/15/20 20:59 Last Admin: 08/18/20 09:38 Dose: 2.5 mg Documented by: Dextrose (Dextrose 50% 50 Ml Syringe) 25 - 50 ml IV UD PRN; Protocol PRN Reason: Hypoglycemia Protocol Stop: 09/05/20 13:55 Famotidine (Famotidine 20 Mg Tab) 20 mg PO DAILY [facility]TE[facility] Stop: 09/17/20 08:59 Last Admin: 08/18/20 09:37 Dose: 20 mg Documented by: Glucagon (Glucagon For Inj 1 Mg Vial) 1 mg SQ UD PRN; Protocol PRN Reason: Hypoglycemia Protocol Stop: 09/05/20 13:55 Glucose (Glucose 10 Tabs/Tube) 4 - 8 tabs PO UD PRN; Protocol PRN Reason: Hypoglycemia Protocol Stop: 09/05/20 13:55 Heparin Sodium (Beef Lung) (Heparin 10 Unit/Ml 5 Ml Flush) 5 ml FLUSH PRN PRN PRN Reason: Flush Stop: 09/09/20 12:50 Promethazine HCl 12.5 mg/ (Sodium Chloride) 50.5 mls @ 202 mls/hr IV Q6H PRN PRN Reason: Nausea And Vomiting Stop: 09/05/20 19:44 Last Infusion: 08/07/20 06:56 Dose: Infused Documented by: Insulin Aspart (Insulin Aspart 100 Units/Ml 3 Ml Pen) 0 units SC ACHS CORTEZ; Protocol Stop: 09/14/20 11:29 Last Admin: 08/18/20 09:38 Dose: 4 units Documented by: Insulin Glargine (Insulin Glargine Solostar 100 Units/Ml 3 Ml Pen) 16 units SC [facility]; Protocol Stop: 09/17/20 20:59 Levothyroxine Sodium (Levothyroxine Sodium 50 Mcg Tablet) [facility] Stop: 09/16/20 06:29 Last Admin: 08/18/20 05:41 Dose: 50 mcg Documented by: Metoprolol Tartrate (Metoprolol Tartrate 25 Mg Tab) 75 mg PO BID [facility] Stop: 09/15/20 08:59 Last Admin: 08/18/20 09:38 Dose: 75 mg Documented by: Miscellaneous Information (Pharmacy Glycemic Mgmt Consult) 1 ea N/A UD PRN; Protocol PRN Reason: Consult Stop: 09/05/20 14:20 Ondansetron HCl (Ondansetron Inj 2 Mg/Ml 2 Ml Vial) 4 mg IV [id number] PRN PRN Reason: Nausea Stop: 09/06/20 14:33 Sennosides (Sennosides 8.8 Mg/5 Ml Udc) 8.8 mg PO BID [facility] Stop: 09/15/20 08:59 Last Admin: 08/18/20 09:44 Dose: Not Given Documented by: (1) Parastomal hernia Obstruction and gangrene presence: without obstruction or gangrene Qualified Code(s): K43.5 - Parastomal hernia without obstruction or gangrene
[2020-08-18 08:36] LABS: Hematocrit (blood only) 35.9 % (37-47); Hemoglobin 11.8 g/dL (12.0-16.0); Mean Corpuscular Hemoglobin 29.3 pg (25-34); Mean Corpuscular Hgb Conc 32.9 g/dL (32-36); Mean Corpuscular Volume 89.1 fL (80-100); Mean Platelet Volume 9.2 fL (7.4-10.4); Platelet Count 432 K/uL (130-400); RDW Coefficient of Variation 15.6 % (11.5-14.5); RDW Standard Deviation 50.6 fL (36.4-46.3); Red Blood Count 4.03 M/uL (4.2-5.4); White Blood Count 8.57 K/uL (4.8-10.8)
[2020-08-18 09:09] LABS: BUN Creatinine Ratio 29.9 (10-20); Calcium 9.1 mg/dl (8.5-10.1); Creatinine Clr Calc Pharmacy 28.5 ml/min; Est GFR (African American) 39.4 ml/min
[2020-08-18] MEDS: FAMOTIDINE 20 MG TAB PO SCH (09:37)
[2020-08-18] MEDS: INSULIN ASPART 100 UNITS/ML 3 ML PEN SC SCH ×4 (09:38→21:13)
[2020-08-18] MEDS: METOPROLOL TARTRATE 25 MG TAB PO SCH ×2 (09:38→20:51)
[2020-08-18] MEDS: APIXABAN 2.5 MG TAB PO SCH ×2 (09:38→20:51)
[2020-08-18] MEDS: SENNOSIDES 8.8 MG/5 ML UDC PO SCH ×3 (09:38→20:51)
--- NOTE | 2020-08-18 11:44 | Pharmacy Report ---
Pharmacy Glycemic Short Note 2 - Date of Service August 18, 2020 - Glycemic Short BSG Results (Last 24 hours): 08/17/20 08/17/20 08/17/20 16:36 20:32 20:44 Glucose POC Glucose 101 H 73 80 08/18/20 08/18/20 08:09 08:23 Glucose 79 POC Glucose 82 OUTPATIENT ANTIDIABETIC REGIMEN: * Tresiba (insulin degludec) 18 units SQ HS * NovoLog with meals * 5-10 units with Breakfast * 7-15 units with Lunch and dinner * TDD ~ 68 units max * A1c = 7.1% on 07/20/20 ASSESSMENT: 08/18: * 55 units SQ insulin given over last 24 hours, while tolerating a diet. * BSGs well controlled over the last 24 hrs, however BSG now trending less than 100 * Fasting BSG 79-82 this AM w/ 20 units basal on board - will reduce dose 20- 50%, will be dosed per scale this evening * Post-prandial BSGs did trend down quickly following breakfast and lunch Novolog doses - will scale back these doses as a result 08/15: * Blood sugars well controlled, starting clears today, reducing macronutrients in TPN in half per Dr Marsh * TPN to have 100grams CHO starting at 1600- reduce insulin to 20 units * Add carb ratio for CHO consumed by PO 08/14: * Patient received 20 units basal last night, 25 units in TPN (150grams CHO), and 22 units of correctional insulin * Blood sugars better controlled since new TPN bag hung at 1600 - 135-164mg/dl * Will increase Dextrose to goal 200grams in TPN, and increase insulin in TPN to 45 units, continue basal and correctional insulin as ordered 08/13: * BSGs have been elevated since this AM, dextrose in TPN was increased to 150 gm yesterday, will keep the same today but increase insulin in TPN to 25 units. Will also tighten correction factor to 15. Continue q4H checks. If BSGs remain elevated will need to keep dextrose in tpn the same or decrease until better control obtained. 08/12: * Patient overall better controlled today. Yesterday she received 15 units of sq basal and 14 units sq bolus. I did add 10 units of regular insulin to the TPN starting yesterday afternoon to cover 100g dextrose. This was increased to 15 units for this afternoon's bag as the dextrose content was increased to 150g. * Will plan on increasing Lantus scale this evening. NovoLog CF was tightened at lunchtime and changed to q4 yesterday. PLAN FOR INPATIENT GLYCEMIC CONTROL: * Basal insulin * Lantus 10-16 units SQ Q HS per scale - SEE MAR for details * Bolus insulin * NovoLog per scale ACHS * Goal Range: Low 110 mg/dL - High 140 mg/dL * Correction Factor: 20 mg/dL/unit * Carb ratio: 1 unit per 6 grams CHO consumed * 20 units regular insulin added to TPN (100g dextrose) PLAN FOR DISCHARGE: * A1c is in goal range for patient based on age/co-morbidities. No changes needed to outpatient regimen unless patient is experiencing frequent hypoglycemia.
--- NOTE | 2020-08-18 14:58 | Surgery Progress Note ---
Date of Service August 18, 2020 Assessment & Plan (1) S/P laparotomy: ok for d/c to extended care when ok with med team can d/c picc line prior to d/c- unless med team needs it leave raudel for now Admission and Anticipated Discharge Date Admission Date: August 06, 2020 Results & Data ([facility]) Vital Signs (Past 12 Hours) Vital Signs Temp Pulse Resp BP Pulse Ox 08/18/20 07:20 36.6 C 76 16 131/79 98 08/18/20 05:48 104/62 PG Care Time/CCT Total # of Minutes Spent Total Time Spent with Patient: Total time spent is greater than 50% in coordination of care (as documented) at patient's floor/unit and/or counseling patient: Coding Level of Care Code None Diagnoses S/P laparotomy Z98.890
[2020-08-18] MEDS ORDERED: INSULIN GLARGINE SOLOSTAR 100 UNITS/ML 3 ML PEN SC SCH ×2 (21:00)
[2020-08-19] MEDS: LEVOTHYROXINE SODIUM 50 MCG TABLET PO SCH (05:45)
--- NOTE | 2020-08-19 06:22 | Surgery Progress Note ---
Date of Service August 19, 2020 Assessment & Plan (1) S/P laparotomy: Patient awake and alert in bed Much less confusion Seems to be tolerating diet with good colostomy function For discharge to [facility] when okay with medical team May remove raudel at [facility] next week as stated in discharge instructions see in our office in 2 to 3 weeks Admission and Anticipated Discharge Date Admission Date: August 06, 2020 Results & Data ([facility]) Vital Signs (Past 12 Hours) Vital Signs Temp Pulse Resp BP BP Pulse Ox 08/18/20 22:27 36.8 C 77 18 117/72 96 08/18/20 20:50 73 118/69 95 PG Care Time/CCT Total # of Minutes Spent Total Time Spent with Patient: Total time spent is greater than 50% in coordination of care (as documented) at patient's floor/unit and/or counseling patient: Coding Level of Care Code None Diagnoses S/P laparotomy Z98.890
[2020-08-19 06:35] LABS: Calcium 8.8 mg/dl (8.5-10.1); Creatinine Clr Calc Pharmacy 22.3 ml/min; Est GFR (African American) 29.4 ml/min; Est GFR (Non-African American) 25.4 ml/min; Magnesium 2.1 mg/dl (1.8-2.4); Phosphorus 4.5 mg/dl (2.5-4.9); Potassium 4.4 mmol/L (3.5-5.1)
--- NOTE | 2020-08-19 07:55 | Hospitalist Progress Note ---
Date of Service August 19, 2020 Assessment & Plan (1) Small bowel obstruction: Present on admission with abdominal pain associated with vomiting CT abd/pelvis showed interval development of a small bowel obstruction with a focal transition point within the deep pelvis as described above. Postoperative changes consistent with resection of the distal colon and rectum with a descending colostomy. Surgery on board S/P ex lap and small bowel anastomosis, w/ Dr. Onofre (08/07) GI consulted for hx of GI bleed and NGT placement/management PICC line placed and pt was started on TPN Avoid narcotics and use IV tylenol prn. pt seems to get confused w/ narcotics Pt pulled out NGT on 08/13 Noted solid stool in colostomy bag 08/17/20 Tolerated full liquid diet TPN stopped Surgery - DC the [place] drain in her incision Abx discontinued Raudel to be removed at [facility] May remove raudel at [facility] next week as stated in discharge instructions Follow up w/ surg. office in 2 to 3 weeks (Dr. Onofre) Electrolytes imbalance Electrolytes stable Continue monitor electrolytes (2) Confusion: Seems to be related to steroid in the setting of prolong hospital stays Pt removed her NG tube Moving all extremities No focal neuro deficit on exam No more 1:1 sitter Continue monitor closely Mental status back to her baseline (3) Parastomal hernia: Chronic, Noted on CT (4) Rectal adenocarcinoma: - Rectal bleeding in Nov 2014 prompted colonoscopy, biopsy and ultimately diagnosis of colon cancer. 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 - Followed previously with [facility] and got xeloda and XRT. (5) Acute respiratory failure with hypoxia: Possible aspiration pneumonia CXR showed showed Interstitial thickening consistent with pulmonary edema. Bilateral airspace opacities which may reflect superimposed pneumonia or alveolar edema. has not been able to get PO Chlorthalidone since pt is NPO Lasix has been given intermittently Plan to resume PO chlorthalidone once diet advance Saturation well on RA Resolved (6) CAD (coronary artery disease): - hx of bypass in 2003 (7) Atrial fibrillation: Paroxysmal, Recurred in 2017. Was on IV metoprolol when she was NPO Case discussed with cardiology IV Cardizem drip and IV digoxin were discontinued, then resumed PO Metoprolol Heart rate controlled btw 70 to 80 (8) Hydronephrosis: -Reviewed on CT, appears to be chronic, moderate, right-sided, if worsening I's/O's or creatinine/BUN would consider nephrology/urology consultation - Follows with urology as outpt, next appt in August (9) Diabetes mellitus, type 2: -Reduce Tresiba to 9 units daily since n.p.o., ISS with Accu-Cheks, glycemic pharmacy consulted -Last A1c =7.1 on 07/20/20 (10) Hypothyroidism: On levothyroxine IV 25 mcg daily, transition to PO Levothyroxine (11) CKD (chronic kidney disease): Cr. 1.88 on admission, baseline appears to be 1.4, monitor BMP with am labs Creatinine ~ 1.2 been stable However now again elevated at 1.7, most likely prerenal after starting TPN, patient not drinking enough fluids Gave small bolus of normal saline and encourage patient to take p.o. 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 - Due to NPO, Eliquis was on hold. anticoagulation with heparin subq for hx of such, and CKD. Continue Eliquis DVT ppx: Eliquis CODE: Full Code Dispo: Plan to DC to [facility] Admission and Anticipated Discharge Date Admission Date: August 06, 2020 Subjective Pt was seen and examined for follow up of SBO, Afib with RVR Lying in bed with no distress Pt is doing much better Mental status is back to baseline She tolerates diet, no complaints, no nausea or abdominal pain TPN stopped Denies any chest pain, palpitation, SOB and fever Review of Systems Review of Systems: All systems reviewed & are unremarkable except as noted in HPI & below Constitutional: no fever and no chills Respiratory: no cough and no dyspnea Cardiovascular: no chest pain and no palpitations Gastrointestinal: no abdominal pain, no nausea and no vomiting Physical Exam Physical Exam: General- Elderly female lying in bed, No acute distress Head- atraumatic Eyes- PERRL, EOMI, ENT- oropharynx clear Neck- supple, no JVD Lungs- No wheezing or rales Heart- irregular rhythm Abdomen- +bowel sound, nontender, +colostomy bag, + clean surg. dressings applied Extremities- no calf tenderness, moves extremities Neuro- alert, oriented x 3; PERRL, EOMI; no facial palsy; no dysarthria Skin- warm & dry Results & Data Results & Data ([facility]) Vital Signs (Past 12 Hours) Vital Signs Temp Pulse Resp BP BP Pulse Ox 08/19/20 07:29 36.5 C 81 18 144/55 H 96 08/18/20 22:27 36.8 C 77 18 117/72 96 08/18/20 20:50 73 118/69 95 Laboratory Results 08/19/20 08/18/20 08/18/20 Range/Units 05:23 21:02 16:52 WBC (4.8-10.8) K/uL RBC (4.2-5.4) M/uL Hgb (12.0-16.0) g/dL Hct (37-47) % MCV (80-100) fL MCH (25-34) pg MCHC (32-36) g/dL RDW Std Deviation (36.4-46.3) fL RDW Coeff of Kei (11.5-14.5) % Plt Count (130-400) K/uL MPV (7.4-10.4) fL Sodium 139 (136-145) mmol/L Potassium 4.4 (3.5-5.1) mmol/L Chloride 106 (98-107) mmol/L Carbon Dioxide 28 (21-32) mmol/L Anion Gap 5.0 (3-11) BUN 48 H (7-18) mg/dl Creatinine 1.77 H D (0.6-1.2) mg/dl Est Cr Clr Drug Dosing 22.3 ml/min Est GFR ( Amer) 29.4 ml/min Est GFR (Non-Af Amer) 25.4 ml/min BUN/Creatinine Ratio 27.0 H (10-20) Glucose 162 H (70-99) mg/dl POC Glucose 117 H 85 (70-99) mg/dl Calcium 8.8 (8.5-10.1) mg/dl Phosphorus 4.5 (2.5-4.9) mg/dl Magnesium 2.1 (1.8-2.4) mg/dl 08/18/20 08/18/20 08/18/20 Range/Units 12:22 08:23 08:23 WBC 8.57 (4.8-10.8) K/uL RBC 4.03 L (4.2-5.4) M/uL Hgb 11.8 L (12.0-16.0) g/dL Hct 35.9 L (37-47) % MCV 89.1 (80-100) fL MCH 29.3 (25-34) pg MCHC 32.9 (32-36) g/dL RDW Std Deviation 50.6 H (36.4-46.3) fL RDW Coeff of Kei 15.6 H (11.5-14.5) % Plt Count 432 H (130-400) K/uL MPV 9.2 (7.4-10.4) fL Sodium 138 (136-145) mmol/L Potassium 4.0 (3.5-5.1) mmol/L Chloride 106 (98-107) mmol/L Carbon Dioxide 25 (21-32) mmol/L Anion Gap 7.0 (3-11) BUN 42 H (7-18) mg/dl Creatinine 1.39 H (0.6-1.2) mg/dl Est Cr Clr Drug Dosing 28.5 ml/min Est GFR ( Amer) 39.4 ml/min Est GFR (Non-Af Amer) 34.0 ml/min BUN/Creatinine Ratio 29.9 H (10-20) Glucose 79 (70-99) mg/dl POC Glucose 111 H (70-99) mg/dl Calcium 9.1 (8.5-10.1) mg/dl Phosphorus 4.0 (2.5-4.9) mg/dl Magnesium 2.0 (1.8-2.4) mg/dl 08/18/20 Range/Units 08:09 WBC (4.8-10.8) K/uL RBC (4.2-5.4) M/uL Hgb (12.0-16.0) g/dL Hct (37-47) % MCV (80-100) fL MCH (25-34) pg MCHC (32-36) g/dL RDW Std Deviation (36.4-46.3) fL RDW Coeff of Kei (11.5-14.5) % Plt Count (130-400) K/uL MPV (7.4-10.4) fL Sodium (136-145) mmol/L Potassium (3.5-5.1) mmol/L Chloride (98-107) mmol/L Carbon Dioxide (21-32) mmol/L Anion Gap (3-11) BUN (7-18) mg/dl Creatinine (0.6-1.2) mg/dl Est Cr Clr Drug Dosing ml/min Est GFR ( Amer) ml/min Est GFR (Non-Af Amer) ml/min BUN/Creatinine Ratio (10-20) Glucose (70-99) mg/dl POC Glucose 82 (70-99) mg/dl Calcium (8.5-10.1) mg/dl Phosphorus (2.5-4.9) mg/dl Magnesium (1.8-2.4) mg/dl (1) Parastomal hernia Obstruction and gangrene presence: without obstruction or gangrene Qualified Code(s): K43.5 - Parastomal hernia without obstruction or gangrene
[2020-08-19] MEDS ORDERED: SODIUM CHLORIDE 0.9% 500 ML IV SCH (08:00)
[2020-08-19] MEDS: APIXABAN 2.5 MG TAB PO SCH (09:15)
[2020-08-19] MEDS: METOPROLOL TARTRATE 25 MG TAB PO SCH (09:15)
[2020-08-19] MEDS: SENNOSIDES 8.8 MG/5 ML UDC PO SCH (09:16)
[2020-08-19] MEDS: INSULIN ASPART 100 UNITS/ML 3 ML PEN SC SCH ×2 (09:16→13:12)
[2020-08-19] MEDS: FAMOTIDINE 20 MG TAB PO SCH (10:44)
--- NOTE | 2020-08-19 11:07 | Discharge Summary ---
Date of Service August 19, 2020 Admission HPI Per Admitting Provider This is an 85 yo F with PMHx of CAD s/p CABG x3 in 2004, chronic atrial fibrillation on Eliquis, T2DM, CKD stage III, history of rectal CA in 2014 s/p colectomy with end colostomy in 2016, history of embolism and thrombosis of arteries of lower extremity in 2017 s/p left lower extremity embolectomy/patch and angioplasty, HTN, history of breast cancer, history of tobacco abuse who presents with acute nausea and vomiting. Pt is confused during my visit. She knows that she is here in the ER because of the having abdominal pain which started last night, nausea and vomiting, but denies vomiting today. She has no pain currently, received morphine sulfate 2 mg IV in the ER. She cannot recall taking her morning medications. Patient denies eating or drinking anything yet today. At times she is singing during my exam, and at other times she seems to drift off to sleep. I attempted to call her brother however did not get an answer. In the ER she was given a total of 500 mL NS, followed by continuous IV fluids at 125 mL/h, Phenergan IV, Tylenol IV and Lopressor 5 mg IV. Admission Exam Per Admitting Provider General: awake, alert, no apparent distress, obese with BMI 35.1 Head: Normocephalic, atraumatic ENT: PERRL, EOMI, no pharyngeal exudate, mucous membranes moist Chest: Clear to auscultation, on room air, no adventitious breath sounds Cardiac: Irregularly irregular, HR in the 110s, no murmur, no JVD, normal peripheral pulses, good capillary refill Abdominal: Absent bowel sounds x4 quadrants, colectomy in left lower quadrant, + distended, + tender to palpation in epigastric and left upper quadrant, + tympanic on percussion, no rebound or guarding Extremities: Normal inspection, no peripheral edema or erythema, calfs nontender to palpation, multiple hammertoes bilateral feet Skin: Diffuse areas of actinic keratoses over extremities Psych: Normal mood and affect Neuro: AAO x 3, strength intact bilaterally and rated 4/5, no motor deficits, speech is clear, no peripheral sensory deficits Principal Diagnosis Small bowel obstruction, laparotomy with small bowel bypass and lysis of adhesions A. fib with RVR Discharge Exam General- Elderly female lying in bed, No acute distress Head- atraumatic Eyes- PERRL, EOMI, ENT- oropharynx clear Neck- supple, no JVD Lungs- No wheezing or rales Heart- irregular rhythm Abdomen- +bowel sound, nontender, +colostomy bag, + clean surg. dressings applied Extremities- no calf tenderness, moves extremities Neuro- alert, oriented x 3; PERRL, EOMI; no facial palsy; no dysarthria Skin- warm & dry Discharge Data Allergies Allergy/AdvReac Type Severity Reaction Status Date / Time iodine Allergy Intermediate Itching Verified 07/19/20 16:22 lisinopril Allergy Unknown Unknown Verified 07/19/20 16:22 ondansetron Allergy Unknown Unknown Verified 07/19/20 16:22 Sulfa (Sulfonamide Allergy Unknown Itching Verified 07/19/20 16:22 Antibiotics) Consultations 08/06/20 15:08 Consult Cardiology Routine 08/07/20 09:13 Consult General Surgery Routine 08/07/20 10:32 Consult Palliative Care Routine 08/07/20 13:23 Consult Toy Consultant Routine Procedures Performed Operation Date: 08/07/20 11:30 Actual Procedures p Exploratory Laparotomy, Small Bowel Bypass, Lysis of Adhesions(Not Applicable) - Pasha Onofre MD, FACS Ordered Studies 08/06/20 06:58 CT abd pelvis wo con Stat IMPRESSION: 1. Interval development of a small bowel obstruction with a focal transition point within the deep pelvis as described above. 2. Postoperative changes consistent with resection of the distal colon and rectum with a descending colostomy. Parastomal hernia remains unchanged. 3. Chronic moderate right hydronephrosis of undetermined etiology. Caliber change is noted within the distal right ureter at the level iliac vessels. This could represent a stricture. Hospital Course (1) Small bowel obstruction: Present on admission with abdominal pain associated with vomiting CT abd/pelvis showed interval development of a small bowel obstruction with a focal transition point within the deep pelvis as described above. Postoperative changes consistent with resection of the distal colon and rectum with a descending colostomy. Surgery on board S/P ex lap and small bowel anastomosis, w/ Dr. Onofre (08/07) GI consulted for hx of GI bleed and NGT placement/management PICC line placed and pt was started on TPN Avoid narcotics and use IV tylenol prn. pt seems to get confused w/ narcotics Pt pulled out NGT on 08/13 Noted solid stool in colostomy bag 08/17/20 Tolerated full liquid diet TPN stopped Surgery - DC the [place] drain in her incision Abx discontinued [facility] May remove [facility] next week as stated in discharge instructions Follow up w/ surg. office in 2 to 3 weeks (Dr. Onofre) Electrolytes imbalance Electrolytes stable Continue monitor electrolytes (2) Confusion: Seems to be related to steroid in the setting of prolong hospital stays Pt removed her NG tube Moving all extremities No focal neuro deficit on exam No more 1:1 sitter Continue monitor closely Mental status back to her baseline (3) Parastomal hernia: Chronic, Noted on CT (4) Rectal adenocarcinoma: - Rectal bleeding in Nov 2014 prompted colonoscopy, biopsy and ultimately diagnosis of colon cancer. 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 - [facility] (5) Acute respiratory failure with hypoxia: Possible aspiration pneumonia CXR showed showed Interstitial thickening consistent with pulmonary edema. Bilateral airspace opacities which may reflect superimposed pneumonia or alveolar edema. has not been able to get PO Chlorthalidone since pt is NPO Lasix has been given intermittently Plan to resume PO chlorthalidone once diet advance Saturation well on RA Resolved (6) CAD (coronary artery disease): - hx of bypass in 2003 (7) Atrial fibrillation: Paroxysmal, Recurred in 2017. Was on IV metoprolol when she was NPO Case discussed with cardiology IV Cardizem drip and IV digoxin were discontinued, then resumed PO Metoprolol Heart rate controlled btw 70 to 80 (8) Hydronephrosis: -Reviewed on CT, appears to be chronic, moderate, right-sided, if worsening I's/O's or creatinine/BUN would consider nephrology/urology consultation - Follows with urology as outpt, next appt in August (9) Diabetes mellitus, type 2: -Reduce Tresiba to 9 units daily since n.p.o., ISS with Accu-Cheks, glycemic pharmacy consulted -Last A1c =7.1 on 07/20/20 (10) Hypothyroidism: On levothyroxine IV 25 mcg daily, transition to PO Levothyroxine (11) CKD (chronic kidney disease): Cr. 1.88 on admission, baseline appears to be 1.4, monitor BMP with am labs Creatinine ~ 1.2 been stable However now again elevated at 1.7, most likely prerenal after starting TPN, patient not drinking enough fluids Gave small bolus of normal saline and encourage patient to take p.o. 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 - Due to NPO, Eliquis was on hold. anticoagulation with heparin subq for hx of such, and CKD. Continue Eliquis DVT ppx: Eliquis Dispo: Plan to [facility] Total Time Total Time Spent Total Time Spent (In Minutes): 40 Total Time Includes: Examination of the Patient, Discharge Planning, Medication Reconciliation and 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 With Other Providers Discharge Plan Discharge Items Patient Disposition: Home - Home Health Services Reason For Visit: SBO Discharge Diagnosis: Small bowel obstruction, laparotomy with small bowel bypass and lysis of adhesions A. fib with RVR Activity: Per Instructions section Activity Comment: light activity for 4 weeks Lifting: No more than 10 pounds Bathing Comment: may shower; no soaking in tubs/pools Exercise/Sports: Wait until after follow-up appointment Exercise Comment: wait 4 weeks Non-emergency contact: Primary Care Provider and Surgeon Call non-emergency contact if: you have any medication questions, your symptoms worsen, your pain is not controlled, your pain is worsening, your pain is concerning for you, you have a fever, your temperature is above 101.5, your wound has increased redness, your wound has increased drainage and your wound pain has increased Follow-up/Referrals: Pasha Onofre MD, FACS [Physician] - Moe Carpenter MD [Primary Care Provider] - Diet: Regular Addtl Attending Provider Instructions: SPECIAL CARE INSTRUCTIONS: * Cover incisions and change daily for comfort/drainage. *May remove all carlos next Sunday or Sunday at [facility] * Empty drain 2-3 times per day and record. * May use ibuprofen for pain as tolerated. * Expect some swelling and bruising. Call your doctor if: * Temperature above 101 degrees * Pain not relieved by pain medicine ordered * There is increased drainage or redness from any incision * You have any unanswered questions or concerns [phone]. FOLLOW UP VISIT: If not already scheduled, please call the office for a follow-up visit. For 2 to 3 weeksMay remove carlos next Sunday or Sunday at [facility] OFFICE PHONE NUMBER: Dr. Onofre Office Addtl Burr Grinder Provider Instructions: Patient's creatinine slightly elevated, please encourage p.o. fluid intake and hold chlorthalidone for now. Monitor blood pressure. Recommend obtaining BMP within 1 week and adjust medications for blood pressure as needed. Pending Studies at Discharge: No Stand-Alone Forms: My [facility] [employer], Smoking Cessation Medications and DC Order Prescriptions: New sennosides [senna] 8.8 mg/5 mL Syrup 8.8 mg PO BID Qty: 120 RF: 0 levothyroxine [Synthroid] 50 mcg Tablet 50 mcg PO DAILYBB Qty: 30 RF: 0 Continued levothyroxine 50 mcg tablet 50 mcg PO QAM 90 Days Qty: 90 RF: 1 Prolia 60 mg/mL syringe 60 mg [id number] Qty: 1 RF: 1 Novolog U-100 Insulin aspart 100 unit/mL solution See Rx Instructions SUBCUT .COMPLEX Qty: 20 RF: 11 Tresiba U-100 Insulin 100 unit/mL solution 18 unit SQ HS Qty: 10 RF: 11 calcitriol 0.25 mcg capsule 0.25 mcg PO DAILY Qty: 90 RF: 3 metoprolol tartrate 25 mg tablet 75 mg PO BID RF: 0 timolol maleate 0.5 % drops 1 drp OPB QAM RF: 0 apixaban 2.5 mg Tablet 2.5 mg PO BID RF: 0 pantoprazole 40 mg Tablet,Delayed Release (Dr/Ec) 40 mg PO BID 30 Days Qty: 60 RF: 0 nitroglycerin 0.4 mg tablet, sublingual 0.4 mg sublingual UD RF: 0 rosuvastatin 10 mg tablet 10 mg PO HS RF: 0 Discontinued chlorthalidone 25 mg tablet 12.5 mg PO DAILY Qty: 45 RF: 3 Discharge Orders: Discharge Order (Routine); Ordered 08/19/20 Ordered By: Khoi Henao Admission Data Admit Date/Time: 08/06/20 09:30 Attending Provider: Khoi Henao Admit Provider: Luly Matos Primary Care Provider: Moe Carpenter Other Providers: [facility] ; Khoi Henao ; Shawn Cannon ; Pasha Onofre ; Nabila Holman ; Oseas Luna ; Saturnino Alexander ; Espinoza Kumar ; Hubert Renteria ; Narciso Kelly ; Mane Massey ; Bridget High ; Isaias Marsh
--- NOTE | 2020-08-19 11:10 | Palliative Care Progress Note ---
Date of Service August 19, 2020 Assessment & Plan Admission and Anticipated Discharge Date Admission Date: August 06, 2020 Results & Data ([facility]) Vital Signs (Past 12 Hours) Vital Signs Temp Pulse Resp BP Pulse Ox 08/19/20 07:29 36.5 C 81 18 144/55 H 96 PG Care Time/CCT Total # of Minutes Spent Total Time Spent with Patient: Total time spent is greater than 50% in coordination of care (as documented) at patient's floor/unit and/or counseling patient: Coding
== END 2020-08-19 16:15 | disposition home health service (06) | DRG 329 ==
LOC: ED 06:17 → 2W 09:30 → SUATTDRO 09:30 → 2W 13:30 → 2E 17:39 → 1E 08-07 14:26 → 2E 08-08 17:34 → 3N 08-17 20:41